=== PATIENT | female | born 1945 | race Two or more races ===

== ENCOUNTER 2017-08-30 20:55 | Inpatient (IN) | payer OTHER, MEDICARE ==
--- NOTE | 2017-08-30 23:04 | C.PDOC ---
Time Seen by Provider: 08/30/17 23:03 Chief Complaint (Nursing): Flu-like Symptoms Past Medical History Vital Signs: Last Vital Signs Temp 98.6 F 08/30/17 21:38 Pulse 77 08/30/17 21:38 Resp 22 08/30/17 21:38 BP 125/59 L 08/30/17 21:38 Pulse Ox 95 08/30/17 21:38 - Medical History PMH: Anxiety, Asthma, CHF, COPD, Diabetes, Emphysema Denies: Chronic Kidney Disease - [facility] Procedures CONTRAST AORTOGRAM (12/16/13) CORONAR ARTERIOGR-2 CATH (12/16/13) LEFT HEART CARDIAC CATH (12/16/13) LT HEART ANGIOCARDIOGRAM (12/16/13) PACKED CELL TRANSFUSION (12/16/13) - Social History Hx Tobacco Use: No (quit 8 years ago) Hx Alcohol Use: Yes (Quit 10 yrs ago) Hx Substance Use: No - Immunization History Hx Tetanus Toxoid Vaccination: No Hx Influenza Vaccination: Yes Hx Pneumococcal Vaccination: Yes ED Course And Treatment O2 Sat by Pulse Oximetry: 95 Disposition Counseled Patient/Family Regarding: Studies Performed, Diagnosis - Disposition Disposition Time: 23:04
--- NOTE | 2017-08-30 23:15 | C.PDOC ---
History Of Present Illness Patient presents with shortness of breath, dyspnea on exertion, non productive cough. failed 2 courses of antibiotics(zithromax and levaquin). No cp or palpitations. Tolerating po. Time Seen by Provider: 08/30/17 23:03 Chief Complaint (Nursing): Flu-like Symptoms History Per: Patient History/Exam Limitations: no limitations Onset/Duration Of Symptoms: Days Current Symptoms Are (Timing): Still Present Initiating Event: Upper Respiratory Illness Quality: Dull Exacerbating Factor(s): Exertion, Coughing Current Respiratory Medications: See Home Med List Severity: Moderate Pain Scale Rating Of: 5 Associated Symptoms: Productive Cough. denies: Fever, Chills, Chest Pain Reports Recently: Treated By A Physician, Hospitalized Recent travel outside of the [place]: No Additional History Per: Family Past Medical History Reviewed: Historical Data, Nursing Documentation, Vital Signs Vital Signs: Last Vital Signs Temp 98.6 F 08/30/17 21:38 Pulse 77 08/30/17 21:38 Resp 22 08/30/17 21:38 BP 125/59 L 08/30/17 21:38 Pulse Ox 95 08/30/17 23:57 - Medical History PMH: Anxiety, Asthma, CHF, COPD, Diabetes, Emphysema Denies: Chronic Kidney Disease - [facility] Procedures CONTRAST AORTOGRAM (12/16/13) CORONAR ARTERIOGR-2 CATH (12/16/13) LEFT HEART CARDIAC CATH (12/16/13) LT HEART ANGIOCARDIOGRAM (12/16/13) PACKED CELL TRANSFUSION (12/16/13) Family History: States: No Known Family Hx - Social History Hx Tobacco Use: No (quit 8 years ago) Hx Alcohol Use: Yes (Quit 10 yrs ago) Hx Substance Use: No - Immunization History Hx Tetanus Toxoid Vaccination: No Hx Influenza Vaccination: Yes Hx Pneumococcal Vaccination: Yes Review Of Systems Constitutional: Negative for: Fever, Chills Eyes: Negative for: Redness ENT: Negative for: Throat Pain Cardiovascular: Negative for: Chest Pain Respiratory: Positive for: Cough, Shortness of Breath, SOB with Excertion Gastrointestinal: Negative for: Nausea, Vomiting, Abdominal Pain Genitourinary: Negative for: Dysuria Musculoskeletal: Negative for: Back Pain Skin: Negative for: Rash Neurological: Negative for: Weakness Psych: Negative for: Anxiety Physical Exam - Physical Exam Appears: Non-toxic, No Acute Distress Skin: Warm, Dry Head: Normacephalic Eye(s): bilateral: Normal Inspection Oral Mucosa: Moist Teeth: Dentures Throat: No Erythema Neck: Supple Chest: Symmetrical Cardiovascular: Rhythm Regular Respiratory: Decreased Breath Sounds, No Rales, Rhonchi, Wheezing (few) Gastrointestinal/Abdominal: Soft, No Tenderness, Distention (mild), No Guarding Back: No CVA Tenderness Extremity: Normal ROM, No Pedal Edema Extremity: Bilateral: Atraumatic, Normal Color And Temperature Pulses: Left Dorsalis Pedis: Normal, Right Dorsalis Pedis: Normal Neurological/Psych: Oriented x3, Normal Speech, Normal Cognition Gait: Steady ED Course And Treatment - Laboratory Results Result Diagrams: 08/30/17 23:18 08/30/17 23:18 ECG: Interpreted By Me, Viewed By Me ECG Rhythm: Sinus Tachycardia (110), Nonspecific Changes O2 Sat by Pulse Oximetry: 95 Pulse Ox Interpretation: Normal - Radiology CXR: Interpreted by Me, Viewed By Me CXR Interpretation: Yes: Infiltrates (rll), COPD, Cardiomegaly, Other (? small left effusion). No: Fracture Disposition Discussed With Dr.: Holly Lugo Comment: accepted the pt on her service and took over the care at 11:55 PM Doctor Will See Patient In The: Hospital Counseled Patient/Family Regarding: Studies Performed, Diagnosis - Disposition Disposition: HOSPITALIZED Disposition Time: 23:11 Condition: GUARDED Forms: [facility] (Italian) - POA Present On Arrival: Poor Glycemic Control - Clinical Impression Clinical Impression: COPD exacerbation, Pneumonia, Severe anemia, Hypokalemia Decision To Admit - Pt Status Changed To: Hospital Disposition Of: Inpatient - Admit Certification Admit to Inpatient:: After my assessment, the patient will require hospitalization for at least two midnights. This is because of the severity of symptoms shown, intensity of services needed, and/or the medical risk in this patient being treated as an outpatient. - InPatient: Physician Admission Certification: I certify that this patient requires 2 or more midnights of care for the following reason:: After my assessment, the patient will require hospitalization for at least two midnights. This is because of the severity of symptoms shown, intensity of services needed, and/or the medical risk in this patient being treated as an outpatient. - . Bed Request Type: Regular Admitting Physician: Holly Lugo Patient Diagnosis: COPD exacerbation, Pneumonia, Severe anemia
[2017-08-30 23:21] LABS: BASO % 0.6 % (0.0-2.0); EOS # 0.2 K/uL (0.0-0.7); EOS % 3.1 % (0.0-4.0); LYMPH # 0.9 K/uL (1.0-4.3); LYMPH % 11.1 % (20.0-40.0); MEAN CORPUSCULAR HEMOGLOBIN 21.1 pg (27.0-31.0); MEAN CORPUSCULAR HGB CONC 30.7 g/dL (33.0-37.0); MEAN PLATELET VOLUME 7.2 fL (7.2-11.7); MONO # 1.1 K/uL (0.0-0.8); MONO % 13.3 % (0.0-10.0); NEUT # 5.8 K/uL (1.8-7.0); NEUT % 71.9 % (50.0-75.0); NRBC % 0.2 % (0.0-2.0); RBC 3.33 Mil/uL (3.80-5.20); WHITE BLOOD COUNT 8.1 K/uL (4.8-10.8)
[2017-08-30 23:24] LABS: MEAN CELL VOLUME 68.6 fL (81.0-99.0)
[2017-08-30 23:30] LABS: INR 1.1; PROTHROMBIN TIME 12.6 SECONDS (9.7-12.2)
[2017-08-30] MEDS: Albuterol-Ipratrop 3 mg / 0.5 (3 ml) UD IH SCH ×2 (23:32→23:48)
[2017-08-30 23:33] LABS: ALB/GLOB RATIO 1.1 (1.0-2.1); ALBUMIN 3.8 g/dL (3.5-5.0); ALT/SGPT 26 U/L (9-52); AST/SGOT 31 U/L (14-36); BLOOD UREA NITROGEN 14 mg/dL (7-17); CALCIUM 8.8 mg/dl (8.6-10.4); GFR AFRICAN-AMERICAN > 60; GFR NON-AFRICAN AMERICAN > 60; MAGNESIUM 1.5 mg/dL (1.6-2.3)
[2017-08-30] MEDS ORDERED: Albuterol-Ipratrop 3 mg / 0.5 (3 ml) UD ONE (23:36)
[2017-08-30 23:44] LABS: B-TYPE NATRIURETIC PEPTIDE 135 pg/mL (0-900)
[2017-08-30] MEDS ORDERED: Vancomycin 1 GM 1 GM/250 ML BAG IVPB SCH (23:45)
[2017-08-30] MEDS ORDERED: Potassium Chloride 10 mEq ER Tab PO STA (23:50)
[2017-08-30] MEDS ORDERED: Piperacillin/Tazobact 3.375 gm 100 ML IVPB STA (23:51)
[2017-08-30 23:53] LABS: ABG ALLEN TEST POS; ARTERIAL BLOOD GAS HCO3 32.6 mmol/L (21-28); ARTERIAL BLOOD GAS O2 SAT 97.7 % (95-98); ARTERIAL BLOOD GAS PCO2 44 mm/Hg (35-45); ARTERIAL BLOOD GAS PO2 71 mm/Hg (80-100); ARTERIAL BLOOD GAS TCO2 35.7 mmol/L (22-28)
[2017-08-31] MEDS ORDERED: Potassium Chloride 10 mEq ER Tab PO STA (00:33)
[2017-08-31] MEDS ORDERED: Vancomycin 1 GM 1 GM/250 ML BAG IVPB STA (00:44)
[2017-08-31] MEDS ORDERED: Potassium Chloride 10 mEq ER Tab PO ONE (00:50)
[2017-08-31] MEDS ORDERED: Piperacillin/Tazobact 3.375 gm 100 ML IVPB ONE ×3 (00:50→15:12)
[2017-08-31] MEDS: Piperacillin/Tazobact 3.375 GM in Sodium Chloride 100 ML IVPB SCH ×2 (01:04→10:41)
[2017-08-31 01:11] LABS: FERRITIN 9.7 ng/mL
[2017-08-31] MEDS: MethylPREDNISolone 40 mg Vial IVP SCH ×4 (01:20→22:25)
[2017-08-31] MEDS ORDERED: MethylPREDNISolone 40 mg Vial ONE ×2 (01:22→06:02)
[2017-08-31 02:46] LABS: CK-MB 0.57 ng/mL (0.0-3.38)
[2017-08-31] MEDS ORDERED: Albuterol-Ipratrop 3 mg / 0.5 (3 ml) UD ONE ×4 (04:50→15:44)
[2017-08-31] MEDS: Albuterol-Ipratrop 3 mg / 0.5 (3 ml) UD INH SCH ×5 (04:51→20:21)
[2017-08-31 06:24] LABS: SQUAMOUS EPITHIAL < 1 /hpf (0-5); URINE BILIRUBIN NEGATIVE (NEGATIVE); URINE BLOOD NEGATIVE (NEGATIVE); URINE CLARITY Clear (Clear); URINE COLOR Yellow (YELLOW); URINE GLUCOSE (UA) NORMAL (Normal); URINE LEUKOCYTE ESTERASE NEG Leu/uL (Negative); URINE NITRATE NEGATIVE (NEGATIVE); URINE PROTEIN NEGATIVE (NEGATIVE); URINE UROBILINOGEN NORMAL mg/dL (0.2-1.0)
[2017-08-31 07:54] LABS: ALB/GLOB RATIO 1.2 (1.0-2.1); ALBUMIN 3.4 g/dL (3.5-5.0); ALT/SGPT 17 U/L (9-52); AST/SGOT 21 U/L (14-36); BLOOD UREA NITROGEN 15 mg/dL (7-17); CALCIUM 8.7 mg/dl (8.6-10.4); GFR AFRICAN-AMERICAN > 60; GFR NON-AFRICAN AMERICAN > 60
[2017-08-31 08:06] LABS: CK-MB 0.94 ng/mL (0.0-3.38)
[2017-08-31] MEDS: Albuterol-Ipratrop 3 mg / 0.5 (3 ml) UD INH PRN ×2 (08:33→13:39)
--- NOTE | 2017-08-31 10:21 | RAD ---
PROCEDURE: CHEST RADIOGRAPH, 1 VIEW HISTORY: SOB COMPARISON: CT chest without contrast from 12/23/2013 FINDINGS: LUNGS: The lungs are well inflated. There is consolidation in the right lower lobe. There is also mild pulmonary venous congestion. PLEURA: No pneumothorax or pleural fluid seen. CARDIOVASCULAR: The heart remains enlarged. Status post CABG. OSSEOUS STRUCTURES: Within normal limits for the patient's age with an enchondroma in the right humeral neck. VISUALIZED UPPER ABDOMEN: Normal. OTHER FINDINGS: None. IMPRESSION: Right lower lobe pneumonia. Follow-up to resolution is advised.
--- NOTE | 2017-08-31 11:06 | CP.PCM.HP ---
History of Present Illness - History of Present Illness History of Present Illness: pt was sent to hospital for cough wheesing sob hyoxeamia and pumonia has sapid ht rate p\iregular Present on Admission - Present on Admission Any Indicators Present on Admission: No Review of Systems - Review of Systems Systems not reviewed;Unavailable: Acuity of Condition, Respiratory Distress - Constitutional Constitutional: Fatigue - EENT Eyes: As Per HPI Nose/Mouth/Throat: As Per HPI - Cardiovascular Cardiovascular: Irregular Heart Rhythm, Rapid Heart Rate - Respiratory Respiratory: Cough, Dyspnea, Wheezing, Chest Congestion - Reproductive: Female Reproductive:Female: As Per HPI - Menstruation Menstruation: As Per HPI - Musculoskeletal Musculoskeletal: Arthralgias - Integumentary Integumentary: As Per HPI - Neurological Neurological: As Per HPI - Psychiatric Psychiatric: As Per HPI - Endocrine Endocrine: As Per HPI - Hematologic/Lymphatic Additional comments: severe aneamia Past Patient History - Past Medical History & Family History Past Medical History?: Yes - Past Social History Smoking Status: Never Smoked - CARDIAC Hx Congestive Heart Failure: Yes - PULMONARY Hx Asthma: Yes Hx Chronic Obstructive Pulmonary Disease (COPD): Yes Hx Emphysema: Yes - NEUROLOGICAL Hx Neurological Disorder: No - HEENT Hx Cataracts: Yes - RENAL Hx Chronic Kidney Disease: No - ENDOCRINE/METABOLIC Hx Endocrine Disorders: No - HEMATOLOGICAL/ONCOLOGICAL Hx Blood Disorders: No - INTEGUMENTARY Hx Dermatological Problems: No - MUSCULOSKELETAL/RHEUMATOLOGICAL Hx Falls: No - GASTROINTESTINAL Hx Gastrointestinal Disorders: No - GENITOURINARY/GYNECOLOGICAL Hx Genitourinary Disorders: No - PSYCHIATRIC Hx Anxiety: Yes Hx Substance Use: No - SURGICAL HISTORY Hx Surgeries: Yes Hx Cataract Extraction: Yes Other/Comment: R mastectomy 8 yrs ago L mastectomy 6 yrs ago - ANESTHESIA Hx Anesthesia: Yes Hx Anesthesia Reactions: No Meds Allergies/Adverse Reactions: Allergies Allergy/AdvReac Type Severity Reaction Status Date / Time adhesive tape Allergy Verified 08/30/17 21:45 latex Allergy Verified 08/30/17 21:45 Physical Exam - Constitutional Appears: Non-toxic, Cachectic - Head Exam Head Exam: ATRAUMATIC - Eye Exam Eye Exam: Normal appearance Pupil Exam: NORMAL ACCOMODATION - ENT Exam ENT Exam: Mucous Membranes Moist - Neck Exam Neck exam: Positive for: Normal Inspection - Respiratory Exam Respiratory Exam: Decreased Breath Sounds, Rales, Rhonchi, Wheezes, Respiratory Distress - Cardiovascular Exam Cardiovascular Exam: Tachycardia - GI/Abdominal Exam GI & Abdominal Exam: Normal Bowel Sounds - Rectal Exam Rectal Exam: NORMAL INSPECTION - Exam Exam: NORMAL INSPECTION External exam: NORMAL EXTERNAL EXAM Results - Vital Signs Recent Vital Signs: Last Vital Signs Temp 97.8 F 08/31/17 10:33 Pulse 124 H 08/31/17 10:33 Resp 22 08/31/17 10:33 BP 116/58 L 08/31/17 10:33 Pulse Ox 99 08/31/17 10:33 - Labs Result Diagrams: 08/30/17 23:18 08/31/17 07:53 Labs: Laboratory Results - last 24 hr 08/30/17 08/30/17 08/30/17 23:18 23:18 23:18 WBC 8.1 RBC 3.33 L Hgb 7.0 L D Hct 22.8 L MCV 68.6 L D MCH 21.1 L MCHC 30.7 L RDW 20.0 H Plt Count 431 H D MPV 7.2 Neut % (Auto) 71.9 Lymph % (Auto) 11.1 L Nash % (Auto) 13.3 H Eos % (Auto) 3.1 Baso % (Auto) 0.6 Neut # (Auto) 5.8 Lymph # (Auto) 0.9 L Nash # (Auto) 1.1 H Eos # (Auto) 0.2 Baso # (Auto) 0.0 PT 12.6 H INR 1.1 APTT 28 Puncture Site pCO2 pO2 HCO3 ABG pH ABG Total CO2 ABG O2 Saturation ABG Base Excess Bill Test ABG Potassium Glucose Lactate Liter Flow Sodium 135 Potassium 2.9 L Chloride 91 L Carbon Dioxide 31 H Anion Gap 17 BUN 14 Creatinine 0.9 Est GFR ( Amer) > 60 Est GFR (Non-Af Amer) > 60 Random Glucose 153 H Calcium 8.8 Magnesium 1.5 L Ferritin Total Bilirubin 0.4 AST 31 ALT 26 Alkaline Phosphatase 56 Total Creatine Kinase CK-MB (Mass) Troponin I 0.0120 NT-Pro-B Natriuret Pep 135 Total Protein 7.2 Albumin 3.8 Globulin 3.4 Albumin/Globulin Ratio 1.1 TSH 3rd Generation Arterial Blood Potassium Urine Color Urine Clarity Urine pH Ur Specific [place] Urine Protein Urine Glucose (UA) Urine Ketones Urine Blood Urine Nitrate Urine Bilirubin Urine Urobilinogen Ur Leukocyte Esterase Urine WBC (Auto) Urine RBC (Auto) Ur Squamous Epith Cells Influenza Typ A,B (EIA) Blood Type Antibody Screen Antibody Identification Antigen Identification 08/30/17 08/31/17 08/31/17 23:32 00:22 00:32 WBC RBC Hgb Hct MCV MCH MCHC RDW Plt Count MPV Neut % (Auto) Lymph % (Auto) Nash % (Auto) Eos % (Auto) Baso % (Auto) Neut # (Auto) Lymph # (Auto) Nash # (Auto) Eos # (Auto) Baso # (Auto) PT INR APTT Puncture Site Rr pCO2 44 pO2 71 L HCO3 32.6 H ABG pH 7.50 H ABG Total CO2 35.7 H ABG O2 Saturation 97.7 ABG Base Excess 9.9 H Bill Test Pos ABG Potassium 2.6 L Glucose 154 H Lactate 2.0 Liter Flow 6.0 Sodium 138.0 Potassium Chloride 101.0 Carbon Dioxide Anion Gap BUN Creatinine Est GFR ( Amer) Est GFR (Non-Af Amer) Random Glucose Calcium Magnesium Ferritin 9.7 Total Bilirubin AST ALT Alkaline Phosphatase Total Creatine Kinase CK-MB (Mass) Troponin I NT-Pro-B Natriuret Pep Total Protein Albumin Globulin Albumin/Globulin Ratio TSH 3rd Generation 2.52 Arterial Blood Potassium 2.6 L Urine Color Urine Clarity Urine pH Ur Specific [place] Urine Protein Urine Glucose (UA) Urine Ketones Urine Blood Urine Nitrate Urine Bilirubin Urine Urobilinogen Ur Leukocyte Esterase Urine WBC (Auto) Urine RBC (Auto) Ur Squamous Epith Cells Influenza Typ A,B (EIA) Blood Type O POSITIVE Antibody Screen Positive Antibody Identification Anti E Antigen Identification E Antigen - NEGATIVE 08/31/17 08/31/17 08/31/17 01:39 02:27 06:15 WBC RBC Hgb Hct MCV MCH MCHC RDW Plt Count MPV Neut % (Auto) Lymph % (Auto) Nash % (Auto) Eos % (Auto) Baso % (Auto) Neut # (Auto) Lymph # (Auto) Nash # (Auto) Eos # (Auto) Baso # (Auto) PT INR APTT Puncture Site pCO2 pO2 HCO3 ABG pH ABG Total CO2 ABG O2 Saturation ABG Base Excess Bill Test ABG Potassium Glucose Lactate Liter Flow Sodium Potassium Chloride Carbon Dioxide Anion Gap BUN Creatinine Est GFR ( Amer) Est GFR (Non-Af Amer) Random Glucose Calcium Magnesium Ferritin Total Bilirubin AST ALT Alkaline Phosphatase Total Creatine Kinase 40 CK-MB (Mass) 0.57 Troponin I < 0.0120 NT-Pro-B Natriuret Pep Total Protein Albumin Globulin Albumin/Globulin Ratio TSH 3rd Generation Arterial Blood Potassium Urine Color Yellow Urine Clarity Clear Urine pH 5.0 Ur Specific [place] 1.014 Urine Protein Negative Urine Glucose (UA) Normal Urine Ketones Negative Urine Blood Negative Urine Nitrate Negative Urine Bilirubin Negative Urine Urobilinogen Normal Ur Leukocyte Esterase Neg Urine WBC (Auto) 1 Urine RBC (Auto) 1 Ur Squamous Epith Cells < 1 Influenza Typ A,B (EIA) Negative for flu a/b Blood Type Antibody Screen Antibody Identification Antigen Identification 08/31/17 07:53 WBC RBC Hgb Hct MCV MCH MCHC RDW Plt Count MPV Neut % (Auto) Lymph % (Auto) Nash % (Auto) Eos % (Auto) Baso % (Auto) Neut # (Auto) Lymph # (Auto) Nash # (Auto) Eos # (Auto) Baso # (Auto) PT INR APTT Puncture Site pCO2 pO2 HCO3 ABG pH ABG Total CO2 ABG O2 Saturation ABG Base Excess Bill Test ABG Potassium Glucose Lactate Liter Flow Sodium 136 Potassium 3.3 L Chloride 96 L Carbon Dioxide 27 Anion Gap 16 BUN 15 Creatinine 0.7 Est GFR ( Amer) > 60 Est GFR (Non-Af Amer) > 60 Random Glucose 231 H Calcium 8.7 Magnesium Ferritin Total Bilirubin 0.2 AST 21 ALT 17 Alkaline Phosphatase 60 Total Creatine Kinase 41 CK-MB (Mass) 0.94 Troponin I < 0.0120 NT-Pro-B Natriuret Pep Total Protein 6.4 Albumin 3.4 L Globulin 3.0 Albumin/Globulin Ratio 1.2 TSH 3rd Generation Arterial Blood Potassium Urine Color Urine Clarity Urine pH Ur Specific [place] Urine Protein Urine Glucose (UA) Urine Ketones Urine Blood Urine Nitrate Urine Bilirubin Urine Urobilinogen Ur Leukocyte Esterase Urine WBC (Auto) Urine RBC (Auto) Ur Squamous Epith Cells Influenza Typ A,B (EIA) Blood Type Antibody Screen Antibody Identification Antigen Identification Assessment & Plan - Assessment and Plan (Free Text) Assessment: ac pnumonia hypoxaemia ac ex copd severe aneamia dm Plan: as per orders - Date & Time Date: 08/31/17 Time: 11:09
[2017-08-31] MEDS ORDERED: Potassium Chloride 20 mEq ER Tab PO ONE (11:31)
[2017-08-31] MEDS: Potassium Chloride 20 mEq ER Tab PO SCH (11:32)
[2017-08-31 14:30] LABS: BASO % 0.2 % (0.0-2.0); LYMPH # 0.4 K/uL (1.0-4.3); MEAN CORPUSCULAR HEMOGLOBIN 23.1 pg (27.0-31.0); MEAN CORPUSCULAR HGB CONC 31.8 g/dL (33.0-37.0); MEAN PLATELET VOLUME 7.1 fL (7.2-11.7); MONO # 0.2 K/uL (0.0-0.8); MONO % 4.4 % (0.0-10.0); NEUT # 4.2 K/uL (1.8-7.0); NEUT % 87.4 % (50.0-75.0); NRBC % 0.4 % (0.0-2.0); PLATELET COUNT 489 K/uL (130-400); RBC 4.47 Mil/uL (3.80-5.20); RED CELL DISTRIBUTION WIDTH 21.9 % (11.5-14.5); WHITE BLOOD COUNT 4.8 K/uL (4.8-10.8)
[2017-08-31 14:34] LABS: HEMOGLOBIN 10.3 g/dL (11.0-16.0); MEAN CELL VOLUME 72.6 fL (81.0-99.0)
[2017-08-31 15:33] LABS: LYMPHOCYTE 4 % (20-40); MONOCYTE 3 % (0-10); NEUTROPHIL 93 % (50-75); TOTAL CELLS COUNTED 100
[2017-08-31 15:34] LABS: ANISOCYTOSIS SLIGHT; PLATELET ESTIMATE SLIGHTLY INCREASED (NORMAL)
[2017-08-31 15:35] LABS: HYPOCHROMIC SLIGHT; MICROCYTOSIS SLIGHT; OVALOCYTES SLIGHT; POLYCHROMIC SLIGHT
[2017-08-31 15:36] LABS: TARGET CELLS SLIGHT; TEARDROP CELLS SLIGHT
[2017-08-31] MEDS: Piperacill/Tazo 3.375gm in Dex 3.375 GM/50 ML BAG IVPB SCH (16:50)
[2017-08-31] MEDS ORDERED: Albuterol-Ipratrop 3 mg / 0.5 (3 ml) UD INH STA ×2 (20:21→22:20)
[2017-08-31 20:23] LABS: ABG ALLEN TEST YES; ARTERIAL BLOOD GAS HCO3 24.9 mmol/L (21-28); ARTERIAL BLOOD GAS HEMOGLOBIN 10.5 g/dL (11.7-17.4); ARTERIAL BLOOD GAS O2 SAT 98.4 % (95-98); ARTERIAL BLOOD GAS PCO2 50 mm/Hg (35-45); ARTERIAL BLOOD GAS PH 7.33 (7.35-7.45); ARTERIAL BLOOD GAS PO2 88 mm/Hg (80-100); ARTERIAL BLOOD GAS TCO2 27.9 mmol/L (22-28)
--- NOTE | 2017-08-31 21:05 | PCM.RRT ---
ADMINISTRATIVE PROFESSIONAL Nurses Assessment - Situation Date: 08/31/17 Time ADMINISTRATIVE PROFESSIONAL was called: 20:09 ADMINISTRATIVE PROFESSIONAL Location:: 5S Med/Surg (721I) ADMINISTRATIVE PROFESSIONAL Reason for Call: Tachycardia, O2 Saturation below 90% Plan - Assessment of Findings&Treatment Plan ADMINISTRATIVE PROFESSIONAL was called at 20:09 for oxygen saturation 80-85% on 2L via n/c and tachycardia @150bpm. Pt was admitted today to the service of Dr. Lugo for RLL PNA, Dr. Mak was consulted for pulmonology. Both of the doctors were contacted and alerted. The following orders were placed for the patient EKG ABG CXR Lasix 40mg IVP x1 BIPAP 10/5 @50% Duonebs x1 The ekg showed sinus tachycardia, no acute changes. CXR was pertinent for increased interstitial markings. ABG was acidotic and hypercapnic. This correlated with physical finding of decreased breath sounds, costal retractions , labored breathing and prolonged expiratory phase with wheezing. Lasix was ordered. Pt was placed on BIPAP and given a duoneb treatment. Pt's saturation increased to 88-90% on BIPAP. She was persistently tachycardic 150bpm. Conversation occurred with ICU attending Dr. Scherer who asked that we monitor the patient for resolution prior to considering transfer to ICU. Reevaluate patient in 30min with consideration for ICU transfer if not improved. Patient asked for her son Orlin to be notified at the following number: . I discussed the situation with her son. Son confirmed that the patient is full code as of right now but will discuss this with her when he visits her tomorrow.
[2017-08-31] MEDS ORDERED: Nitroglycerin 2% Ointment Foilpak UD TOP ONE ×2 (22:02→22:05)
[2017-08-31 22:31] LABS: BASO # 0.1 K/uL (0.0-0.2); BASO % 0.4 % (0.0-2.0); HEMOGLOBIN 10.9 g/dL (11.0-16.0); LYMPH # 0.9 K/uL (1.0-4.3); LYMPH % 6.2 % (20.0-40.0); MEAN CORPUSCULAR HEMOGLOBIN 22.4 pg (27.0-31.0); MEAN CORPUSCULAR HGB CONC 29.8 g/dL (33.0-37.0); MEAN PLATELET VOLUME 7.6 fL (7.2-11.7); MONO # 1.1 K/uL (0.0-0.8); MONO % 7.7 % (0.0-10.0); NEUT # 12.4 K/uL (1.8-7.0); NEUT % 85.7 % (50.0-75.0); NRBC % 0.4 % (0.0-2.0); PLATELET COUNT 600 K/uL (130-400); RBC 4.85 Mil/uL (3.80-5.20); RED CELL DISTRIBUTION WIDTH 21.6 % (11.5-14.5)
[2017-08-31 22:35] LABS: WHITE BLOOD COUNT 14.5 K/uL (4.8-10.8)
[2017-08-31 22:38] LABS: ALB/GLOB RATIO 1.1 (1.0-2.1); ALT/SGPT 30 U/L (9-52); AST/SGOT 52 U/L (14-36); BLOOD UREA NITROGEN 19 mg/dL (7-17); CALCIUM 8.9 mg/dl (8.6-10.4); GFR AFRICAN-AMERICAN > 60; GFR NON-AFRICAN AMERICAN 54
[2017-08-31 22:44] LABS: ABG ALLEN TEST POS; ARTERIAL BLOOD GAS HCO3 24.1 mmol/L (21-28); ARTERIAL BLOOD GAS O2 SAT 99.4 % (95-98); ARTERIAL BLOOD GAS PCO2 67 mm/Hg (35-45); ARTERIAL BLOOD GAS PH 7.23 (7.35-7.45); ARTERIAL BLOOD GAS PO2 149 mm/Hg (80-100); ARTERIAL BLOOD GAS TCO2 30.2 mmol/L (22-28)
[2017-08-31] MEDS ORDERED: Nitroglycerin 50mg in D5W 50 MG/250 ML BOTTLE IV SCH (22:45)
[2017-08-31 22:53] LABS: B-TYPE NATRIURETIC PEPTIDE 4220 pg/mL (0-900); CK-MB 7.56 ng/mL (0.0-3.38)
[2017-08-31 22:57] LABS: ANISOCYTOSIS SLIGHT; BANDS 1 % (0-2); LYMPHOCYTE 6 % (20-40); MONOCYTE 5 % (0-10); NEUTROPHIL 88 % (50-75); NUCLEATED RED BLOOD CELL 1 % (0-0); PLATELET ESTIMATE SLIGHTLY INCREASED (NORMAL); TOTAL CELLS COUNTED 100
[2017-08-31 22:58] LABS: HYPOCHROMIC MODERATE; OVALOCYTES SLIGHT; POLYCHROMIC SLIGHT
[2017-08-31 22:59] LABS: MICROCYTOSIS MODERATE
[2017-08-31] MEDS: Propofol 10 mg/ml 1,000 MG/100 ML VIAL IV PRN (23:45)
[2017-08-31 23:52] VITALS: BMI 24.5
--- NOTE | 2017-09-01 00:11 | CP.PCM.PN ---
Subjective - Date & Time of Evaluation Date of Evaluation: 09/01/17 Time of Evaluation: 00:08 - Subjective Subjective: pt become severe respiratory distress rept ABG showing acidotic changes and co2 retension with worsening distress. spoke to pt daugher and explained her. agree with aggressive treatment Decided to intubate and pt intubated with 7.5size tube placed at 22cm, with glidescope help. spo2 maintained 97% placed on vent cxr ordered. Objective - Vital Signs/Intake and Output Vital Signs (last 24 hours): Temp Pulse Resp BP Pulse Ox 98.2 F 160 H 32 H 132/81 96 08/31/17 18:00 08/31/17 23:00 08/31/17 23:00 08/31/17 23:00 08/31/17 23:00 Intake and Output: 08/31/17 09/01/17 18:59 06:59 Intake Total 20 Balance 20 - Medications Medications: Current Medications Albuterol/Ipratropium (Duoneb 3 Mg/0.5 Mg (3 Ml) Ud) 3 ml INH RQ4 [facility] Last Admin: 08/31/17 20:21 Dose: 3 ml Alprazolam (Xanax) 0.5 mg PO HS [facility] Last Admin: 08/31/17 22:00 Dose: Not Given Alprazolam (Xanax) 0.25 mg PO DAILY [facility] Stop: 09/07/17 11:31 Last Admin: 08/31/17 11:32 Dose: 0.25 mg Gabapentin (Neurontin) 300 mg PO HS [facility] Last Admin: 08/31/17 22:00 Dose: Not Given Piperacillin Sod/Tazobactam Sod (Zosyn 3.375 Gm Iv Premix) 3.375 gm in 50 mls @ 100 mls/hr IVPB Q8H [facility] Last Admin: 08/31/17 16:50 Dose: 100 mls/hr Diltiazem HCl 125 mg/ Dextrose 125 mls @ 5 mls/hr IV .Q24H [facility]; 5 MG/HR PRN Reason: Protocol Last Titration: 08/31/17 23:30 Dose: 0 mg/hr, 0 mls/hr Nitroglycerin/Dextrose (Nitroglycerin 50 Mg/250 Ml D5w) 50 mg in 250 mls @ 1.5 mls/hr IV .Q24H [facility]; 5 MCG/MIN PRN Reason: Protocol Last Titration: 08/31/17 23:30 Dose: 0 mcg/min, 0 mls/hr Propofol (Diprivan) 1,000 mg in 100 mls @ 1.919 mls/hr IV .Q24H PRN; Protocol; 5 MCG/KG/MIN PRN Reason: TITRATE PER MD ORDER Methylprednisolone (Solu-Medrol) 40 mg IVP Q8 [facility] Last Admin: 08/31/17 22:25 Dose: 40 mg Montelukast Sodium (Singulair) 10 mg PO HS [facility] Last Admin: 08/31/17 22:00 Dose: Not Given Potassium Chloride (K-Dur 20 Meq Er Tab) 20 meq PO DAILY [facility] Last Admin: 08/31/17 11:32 Dose: 20 meq Rosuvastatin Calcium (Crestor) 10 mg PO HS [facility] Last Admin: 08/31/17 22:00 Dose: Not Given - Labs Labs: 08/31/17 22:03 08/31/17 22:03 PT 12.6 SECONDS (9.7-12.2) H 08/30/17 23:18 INR 1.1 08/30/17 23:18 APTT 28 SECONDS (21-34) 08/30/17 23:18
--- NOTE | 2017-09-01 00:12 | CP.PCM.PN ---
Subjective - Date & Time of Evaluation Date of Evaluation: 09/01/17 Time of Evaluation: 00:11 - Subjective Subjective: consent from pt daughter for venous access Venous access with TLC inserted to rt side IJ under sono guidance, no complications CXR orderd. Objective - Vital Signs/Intake and Output Vital Signs (last 24 hours): Temp Pulse Resp BP Pulse Ox 98.2 F 160 H 32 H 132/81 96 08/31/17 18:00 08/31/17 23:00 08/31/17 23:00 08/31/17 23:00 08/31/17 23:00 Intake and Output: 08/31/17 09/01/17 18:59 06:59 Intake Total 20 Balance 20 - Medications Medications: Current Medications Albuterol/Ipratropium (Duoneb 3 Mg/0.5 Mg (3 Ml) Ud) 3 ml INH RQ4 [facility] Last Admin: 08/31/17 20:21 Dose: 3 ml Alprazolam (Xanax) 0.5 mg PO HS [facility] Last Admin: 08/31/17 22:00 Dose: Not Given Alprazolam (Xanax) 0.25 mg PO DAILY [facility] Stop: 09/07/17 11:31 Last Admin: 08/31/17 11:32 Dose: 0.25 mg Gabapentin (Neurontin) 300 mg PO HS [facility] Last Admin: 08/31/17 22:00 Dose: Not Given Piperacillin Sod/Tazobactam Sod (Zosyn 3.375 Gm Iv Premix) 3.375 gm in 50 mls @ 100 mls/hr IVPB Q8H [facility] Last Admin: 08/31/17 16:50 Dose: 100 mls/hr Diltiazem HCl 125 mg/ Dextrose 125 mls @ 5 mls/hr IV .Q24H [facility]; 5 MG/HR PRN Reason: Protocol Last Titration: 08/31/17 23:30 Dose: 0 mg/hr, 0 mls/hr Nitroglycerin/Dextrose (Nitroglycerin 50 Mg/250 Ml D5w) 50 mg in 250 mls @ 1.5 mls/hr IV .Q24H [facility]; 5 MCG/MIN PRN Reason: Protocol Last Titration: 08/31/17 23:30 Dose: 0 mcg/min, 0 mls/hr Propofol (Diprivan) 1,000 mg in 100 mls @ 1.919 mls/hr IV .Q24H PRN; Protocol; 5 MCG/KG/MIN PRN Reason: TITRATE PER MD ORDER Last Admin: 08/31/17 23:45 Dose: 5 mcg/kg/min, 1.919 mls/hr Methylprednisolone (Solu-Medrol) 40 mg IVP Q8 [facility] Last Admin: 08/31/17 22:25 Dose: 40 mg Montelukast Sodium (Singulair) 10 mg PO HS [facility] Last Admin: 08/31/17 22:00 Dose: Not Given Potassium Chloride (K-Dur 20 Meq Er Tab) 20 meq PO DAILY [facility] Last Admin: 08/31/17 11:32 Dose: 20 meq Rosuvastatin Calcium (Crestor) 10 mg PO HS [facility] Last Admin: 08/31/17 22:00 Dose: Not Given - Labs Labs: 08/31/17 22:03 08/31/17 22:03 PT 12.6 SECONDS (9.7-12.2) H 08/30/17 23:18 INR 1.1 08/30/17 23:18 APTT 28 SECONDS (21-34) 08/30/17 23:18
--- NOTE | 2017-09-01 00:13 | CP.PCM.CON ---
History of Present Illness - History of Present Illness History of Present Illness: Chief complaint: Respiratory failure HPI: 72-year-old female with a history of chronic bronchitis, COPD, history of breast cancer, bilateral mastectomy admitted to the hospital 24 hours prior with increasing shortness of breath. Patient initially treated for COPD exacerbation. Patient was given antibiotic Solu-Medrol and also for anemia patient received 2 units of blood transfusion. Following that the patient was transferred to floor, from the emergency room, and she started having increasing shortness of breath, tachycardia and unable to complete a sentence. Initially our RT was called, patient was placed on BiPAP Lasix was given. But there was no improvement, and patient was transferred to intensive care unit. In the intensive care unit patient was closely monitored, repeat ABG, and the respiratory status was worsening. I spoke to the patient's daughter Mrs. Alba, and also explained about her mother. It was decided to intubate. Patient was intubated, placed on ventilator. Patient is sedated. Past medical history: Breast cancer bilateral mastectomy. History of smoking. COPD. We'll follow her surgery. Heart failure in the past. Allergies no known drug allergy Personal history: Smoker in the past. Quit recently. Further history was taken from the chart. On examination. Patient on ventilator support ventilation. Chest bilateral decreased air entry, wheezing noted, regular heart sounds, tachycardia noted, abdomen soft, nontender, pedal edema negative. Chest x-ray showing increasing vascular congestion. Urgent triple lumen catheter was inserted, position verified. Patient is currently on IV fluid. Prior to that the patient was given nitroglycerin drip, Cardizem drip, and Lasix 60 mg P In spite of that there was no improvement. Repeat labs reviewed Mild positive troponin noted Cardiology, and pulmonology evaluation pending Assessment and comminution: 72-year-old female with a history of breast cancer bilateral CAD, CABG, severe COPD with home oxygen. Patient admitted with worsening shortness of breath. Possible pneumonia. Patient received a blood transfusion with the stool guaiac-positive. Currently worsening heart failure status. Worsening vascular congestion. Associated COPD exacerbation. Acute respiratory failure with hypoxemic and hypercapnic. On antibiotic, IV fluids. Monitor urine output. Overall prognosis is guarded. We'll continue the supportive care. Will follow the patient. ICU care Past Patient History - Past Medical History & Family History Past Medical History?: Yes - Past Social History Smoking Status: Never Smoked - CARDIAC Hx Congestive Heart Failure: Yes - PULMONARY Hx Asthma: Yes Hx Chronic Obstructive Pulmonary Disease (COPD): Yes Hx Emphysema: Yes - NEUROLOGICAL Hx Neurological Disorder: No - HEENT Hx Cataracts: Yes - RENAL Hx Chronic Kidney Disease: No - ENDOCRINE/METABOLIC Hx Endocrine Disorders: No - HEMATOLOGICAL/ONCOLOGICAL Hx Blood Disorders: No - INTEGUMENTARY Hx Dermatological Problems: No - MUSCULOSKELETAL/RHEUMATOLOGICAL Hx Falls: No - GASTROINTESTINAL Hx Gastrointestinal Disorders: No - GENITOURINARY/GYNECOLOGICAL Hx Genitourinary Disorders: No - PSYCHIATRIC Hx Anxiety: Yes Hx Substance Use: No - SURGICAL HISTORY Hx Surgeries: Yes Hx Cataract Extraction: Yes Other/Comment: R mastectomy 8 yrs ago L mastectomy 6 yrs ago - ANESTHESIA Hx Anesthesia: Yes Hx Anesthesia Reactions: No Meds Allergies/Adverse Reactions: Allergies Allergy/AdvReac Type Severity Reaction Status Date / Time adhesive tape Allergy Verified 08/30/17 21:45 latex Allergy Verified 08/30/17 21:45 - Medications Medications: Current Medications Albuterol/Ipratropium (Duoneb 3 Mg/0.5 Mg (3 Ml) Ud) 3 ml INH RQ4 [facility] Last Admin: 08/31/17 20:21 Dose: 3 ml Alprazolam (Xanax) 0.5 mg PO HS [facility] Last Admin: 08/31/17 22:00 Dose: Not Given Alprazolam (Xanax) 0.25 mg PO DAILY [facility] Stop: 09/07/17 11:31 Last Admin: 08/31/17 11:32 Dose: 0.25 mg Gabapentin (Neurontin) 300 mg PO HS [facility] Last Admin: 08/31/17 22:00 Dose: Not Given Piperacillin Sod/Tazobactam Sod (Zosyn 3.375 Gm Iv Premix) 3.375 gm in 50 mls @ 100 mls/hr IVPB Q8H [facility] Last Admin: 08/31/17 16:50 Dose: 100 mls/hr Diltiazem HCl 125 mg/ Dextrose 125 mls @ 5 mls/hr IV .Q24H JENNIFER; 5 MG/HR PRN Reason: Protocol Last Titration: 08/31/17 23:30 Dose: 0 mg/hr, 0 mls/hr Nitroglycerin/Dextrose (Nitroglycerin 50 Mg/250 Ml D5w) 50 mg in 250 mls @ 1.5 mls/hr IV .Q24H JENNIFER; 5 MCG/MIN PRN Reason: Protocol Last Titration: 08/31/17 23:30 Dose: 0 mcg/min, 0 mls/hr Propofol (Diprivan) 1,000 mg in 100 mls @ 1.919 mls/hr IV .Q24H PRN; Protocol; 5 MCG/KG/MIN PRN Reason: TITRATE PER MD ORDER Last Admin: 08/31/17 23:45 Dose: 5 mcg/kg/min, 1.919 mls/hr Methylprednisolone (Solu-Medrol) 40 mg IVP Q8 [facility] Last Admin: 08/31/17 22:25 Dose: 40 mg Montelukast Sodium (Singulair) 10 mg PO HS [facility] Last Admin: 08/31/17 22:00 Dose: Not Given Potassium Chloride (K-Dur 20 Meq Er Tab) 20 meq PO DAILY [facility] Last Admin: 08/31/17 11:32 Dose: 20 meq Rosuvastatin Calcium (Crestor) 10 mg PO [facility] Last Admin: 08/31/17 22:00 Dose: Not Given Results - Vital Signs Recent Vital Signs: Last Vital Signs Temp 98.2 F 08/31/17 18:00 Pulse 160 H 08/31/17 23:00 Resp 32 H 08/31/17 23:00 BP 132/81 08/31/17 23:00 Pulse Ox 96 08/31/17 23:00 - Labs Result Diagrams: 08/31/17 22:03 08/31/17 22:03 Labs: Laboratory Results - last 24 hr 08/31/17 08/31/17 08/31/17 00:22 00:32 01:39 WBC RBC Hgb Hct MCV MCH MCHC RDW Plt Count MPV Neut % (Auto) Lymph % (Auto) [place] % (Auto) Eos % (Auto) Baso % (Auto) Neut # (Auto) Lymph # (Auto) [place] # (Auto) Eos # (Auto) Baso # (Auto) Neutrophils % (Manual) Band Neutrophils % Lymphocytes % (Manual) Monocytes % (Manual) Nucleated RBC % Platelet Estimate Polychromasia Hypochromasia (manual) Anisocytosis (manual) Microcytosis (manual) Target Cells Tear Drop Cells Ovalocytes Puncture Site pCO2 pO2 HCO3 ABG pH ABG Total CO2 ABG O2 Saturation ABG Base Excess ABG Hemoglobin ABG Carboxyhemoglobin POC ABG HHb (Measured) ABG Methemoglobin Bill Test ABG Potassium A-a O2 Difference Respiratory Index Hgb O2 Saturation Glucose Lactate FiO2 Inspiratory BiPAP Expiratory BiPAP Sodium Potassium Chloride Carbon Dioxide Anion Gap BUN Creatinine Est GFR ( Amer) Est GFR (Non-Af Amer) Random Glucose Calcium Phosphorus Magnesium Ferritin 9.7 Total Bilirubin AST ALT Alkaline Phosphatase Total Creatine Kinase CK-MB (Mass) Troponin I NT-Pro-B Natriuret Pep Total Protein Albumin Globulin Albumin/Globulin Ratio TSH 3rd Generation 2.52 Arterial Blood Potassium Urine Color Urine Clarity Urine pH Ur Specific [place] Urine Protein Urine Glucose (UA) Urine Ketones Urine Blood Urine Nitrate Urine Bilirubin Urine Urobilinogen Ur Leukocyte Esterase Urine WBC (Auto) Urine RBC (Auto) Ur Squamous Epith Cells Stool Occult Blood Influenza Typ A,B (EIA) Negative for flu a/b Blood Type O POSITIVE Antibody Screen Positive Antibody Identification Anti E Antigen Identification E Antigen - NEGATIVE 08/31/17 08/31/17 08/31/17 02:27 06:15 07:53 WBC RBC Hgb Hct MCV MCH MCHC RDW Plt Count MPV Neut % (Auto) Lymph % (Auto) [place] % (Auto) Eos % (Auto) Baso % (Auto) Neut # (Auto) Lymph # (Auto) [place] # (Auto) Eos # (Auto) Baso # (Auto) Neutrophils % (Manual) Band Neutrophils % Lymphocytes % (Manual) Monocytes % (Manual) Nucleated RBC % Platelet Estimate Polychromasia Hypochromasia (manual) Anisocytosis (manual) Microcytosis (manual) Target Cells Tear Drop Cells Ovalocytes Puncture Site pCO2 pO2 HCO3 ABG pH ABG Total CO2 ABG O2 Saturation ABG Base Excess ABG Hemoglobin ABG Carboxyhemoglobin POC ABG HHb (Measured) ABG Methemoglobin Bill Test ABG Potassium A-a O2 Difference Respiratory Index Hgb O2 Saturation Glucose Lactate FiO2 Inspiratory BiPAP Expiratory BiPAP Sodium 136 Potassium 3.3 L Chloride 96 L Carbon Dioxide 27 Anion Gap 16 BUN 15 Creatinine 0.7 Est GFR ( Amer) > 60 Est GFR (Non-Af Amer) > 60 Random Glucose 231 H Calcium 8.7 Phosphorus Magnesium Ferritin Total Bilirubin 0.2 AST 21 ALT 17 Alkaline Phosphatase 60 Total Creatine Kinase 40 41 CK-MB (Mass) 0.57 0.94 Troponin I < 0.0120 < 0.0120 NT-Pro-B Natriuret Pep Total Protein 6.4 Albumin 3.4 L Globulin 3.0 Albumin/Globulin Ratio 1.2 TSH 3rd Generation Arterial Blood Potassium Urine Color Yellow Urine Clarity Clear Urine pH 5.0 Ur Specific [place] 1.014 Urine Protein Negative Urine Glucose (UA) Normal Urine Ketones Negative Urine Blood Negative Urine Nitrate Negative Urine Bilirubin Negative Urine Urobilinogen Normal Ur Leukocyte Esterase Neg Urine WBC (Auto) 1 Urine RBC (Auto) 1 Ur Squamous Epith Cells < 1 Stool Occult Blood Influenza Typ A,B (EIA) Blood Type Antibody Screen Antibody Identification Antigen Identification 08/31/17 08/31/17 08/31/17 14:26 15:07 20:20 WBC 4.8 RBC 4.47 Hgb 10.3 L D Hct 32.4 L MCV 72.6 L D MCH 23.1 L MCHC 31.8 L RDW 21.9 H Plt Count 489 H MPV 7.1 L Neut % (Auto) 87.4 H Lymph % (Auto) 8.0 L [place] % (Auto) 4.4 Eos % (Auto) 0.0 Baso % (Auto) 0.2 Neut # (Auto) 4.2 Lymph # (Auto) 0.4 L [place] # (Auto) 0.2 Eos # (Auto) 0.0 Baso # (Auto) 0.0 Neutrophils % (Manual) 93 H Band Neutrophils % Lymphocytes % (Manual) 4 L Monocytes % (Manual) 3 Nucleated RBC % Platelet Estimate Slightly increased H Polychromasia Slight Hypochromasia (manual) Slight Anisocytosis (manual) Slight Microcytosis (manual) Slight Target Cells Slight Tear Drop Cells Slight Ovalocytes Slight Puncture Site Rra pCO2 50 H pO2 88 HCO3 24.9 ABG pH 7.33 L ABG Total CO2 27.9 ABG O2 Saturation 98.4 H ABG Base Excess 0 ABG Hemoglobin 10.5 L ABG Carboxyhemoglobin 2.3 H POC ABG HHb (Measured) 1.5 ABG Methemoglobin 1.1 Bill Test Yes ABG Potassium A-a O2 Difference 563.0 Respiratory Index 6.4 Hgb O2 Saturation 95.0 Glucose Lactate FiO2 100.0 Inspiratory BiPAP Expiratory BiPAP Sodium Potassium Chloride Carbon Dioxide Anion Gap BUN Creatinine Est GFR ( Amer) Est GFR (Non-Af Amer) Random Glucose Calcium Phosphorus Magnesium Ferritin Total Bilirubin AST ALT Alkaline Phosphatase Total Creatine Kinase CK-MB (Mass) Troponin I NT-Pro-B Natriuret Pep Total Protein Albumin Globulin Albumin/Globulin Ratio TSH 3rd Generation Arterial Blood Potassium Urine Color Urine Clarity Urine pH Ur Specific [place] Urine Protein Urine Glucose (UA) Urine Ketones Urine Blood Urine Nitrate Urine Bilirubin Urine Urobilinogen Ur Leukocyte Esterase Urine WBC (Auto) Urine RBC (Auto) Ur Squamous Epith Cells Stool Occult Blood Positive H Influenza Typ A,B (EIA) Blood Type Antibody Screen Antibody Identification Antigen Identification 08/31/17 08/31/17 08/31/17 22:03 22:03 22:30 WBC 14.5 H D RBC 4.85 Hgb 10.9 L Hct 36.3 MCV 75.0 L D MCH 22.4 L MCHC 29.8 L RDW 21.6 H Plt Count 600 H D MPV 7.6 Neut % (Auto) 85.7 H Lymph % (Auto) 6.2 L [place] % (Auto) 7.7 Eos % (Auto) 0.0 Baso % (Auto) 0.4 Neut # (Auto) 12.4 H Lymph # (Auto) 0.9 L [place] # (Auto) 1.1 H Eos # (Auto) 0.0 Baso # (Auto) 0.1 Neutrophils % (Manual) 88 H Band Neutrophils % 1 Lymphocytes % (Manual) 6 L Monocytes % (Manual) 5 Nucleated RBC % 1 H Platelet Estimate Slightly increased H Polychromasia Slight Hypochromasia (manual) Moderate Anisocytosis (manual) Slight Microcytosis (manual) Moderate Target Cells Tear Drop Cells Ovalocytes Slight Puncture Site Rra pCO2 67 H pO2 149 H HCO3 24.1 ABG pH 7.23 L ABG Total CO2 30.2 H ABG O2 Saturation 99.4 H ABG Base Excess -1.1 ABG Hemoglobin ABG Carboxyhemoglobin POC ABG HHb (Measured) ABG Methemoglobin Bill Test Pos ABG Potassium 4.0 A-a O2 Difference 480.0 Respiratory Index 3.2 Hgb O2 Saturation Glucose 318 H Lactate 2.2 H FiO2 100.0 Inspiratory BiPAP 16 Expiratory BiPAP 8 Sodium 137 141.0 Potassium 4.5 Chloride 97 L 103.0 Carbon Dioxide 21 L Anion Gap 23 H BUN 19 H Creatinine 1.0 Est GFR ( Amer) > 60 Est GFR (Non-Af Amer) 54 Random Glucose 322 H Calcium 8.9 Phosphorus 9.5 H Magnesium 2.0 Ferritin Total Bilirubin 0.7 AST 52 H D ALT 30 Alkaline Phosphatase 65 Total Creatine Kinase 155 H CK-MB (Mass) 7.56 H Troponin I 0.7090 H* NT-Pro-B Natriuret Pep 4220 H Total Protein 7.6 Albumin 4.0 Globulin 3.5 Albumin/Globulin Ratio 1.1 TSH 3rd Generation Arterial Blood Potassium 4.0 Urine Color Urine Clarity Urine pH Ur Specific [place] Urine Protein Urine Glucose (UA) Urine Ketones Urine Blood Urine Nitrate Urine Bilirubin Urine Urobilinogen Ur Leukocyte Esterase Urine WBC (Auto) Urine RBC (Auto) Ur Squamous Epith Cells Stool Occult Blood Influenza Typ A,B (EIA) Blood Type Antibody Screen Antibody Identification Antigen Identification
[2017-09-01] MEDS ORDERED: Sodium Chloride 0.9% 1,000 ML IV SCH ×2 (00:30→14:14)
[2017-09-01 00:32] LABS: ABG ALLEN TEST POS; ARTERIAL BLOOD GAS HEMOGLOBIN 10.8 g/dL (11.7-17.4); ARTERIAL BLOOD GAS O2 SAT 97.6 % (95-98); ARTERIAL BLOOD GAS PCO2 63 mm/Hg (35-45); ARTERIAL BLOOD GAS PH 7.26 (7.35-7.45); ARTERIAL BLOOD GAS PO2 89 mm/Hg (80-100); ARTERIAL BLOOD GAS TCO2 30.2 mmol/L (22-28)
[2017-09-01] MEDS: Sodium Chloride 0.9% 1,000 ML IV SCH ×2 (01:00→11:00)
[2017-09-01] MEDS: Piperacill/Tazo 3.375gm in Dex 3.375 GM/50 ML BAG IVPB SCH ×3 (01:45→17:00)
[2017-09-01] MEDS: Albuterol-Ipratrop 3 mg / 0.5 (3 ml) UD INH SCH ×6 (03:25→21:26)
[2017-09-01 05:39] LABS: ABG ALLEN TEST POS; ARTERIAL BLOOD GAS HCO3 25.3 mmol/L (21-28); ARTERIAL BLOOD GAS HEMOGLOBIN 9.8 g/dL (11.7-17.4); ARTERIAL BLOOD GAS PCO2 51 mm/Hg (35-45); ARTERIAL BLOOD GAS PH 7.33 (7.35-7.45); ARTERIAL BLOOD GAS PO2 108 mm/Hg (80-100); ARTERIAL BLOOD GAS TCO2 28.5 mmol/L (22-28)
[2017-09-01] MEDS: MethylPREDNISolone 40 mg Vial IVP SCH ×3 (06:10→21:35)
[2017-09-01 06:37] LABS: BASO % 0.2 % (0.0-2.0); HEMOGLOBIN 9.8 g/dL (11.0-16.0); LYMPH # 0.4 K/uL (1.0-4.3); LYMPH % 3.3 % (20.0-40.0); MEAN CORPUSCULAR HEMOGLOBIN 22.8 pg (27.0-31.0); MEAN CORPUSCULAR HGB CONC 31.2 g/dL (33.0-37.0); MEAN PLATELET VOLUME 7.6 fL (7.2-11.7); NEUT # 11.4 K/uL (1.8-7.0); NEUT % 88.5 % (50.0-75.0); NRBC % 0.4 % (0.0-2.0); PLATELET COUNT 383 K/uL (130-400); RBC 4.31 Mil/uL (3.80-5.20); RED CELL DISTRIBUTION WIDTH 21.3 % (11.5-14.5); WHITE BLOOD COUNT 12.9 K/uL (4.8-10.8)
[2017-09-01 06:59] LABS: ALB/GLOB RATIO 1.1 (1.0-2.1); ALBUMIN 3.5 g/dL (3.5-5.0); CALCIUM 8.4 mg/dl (8.6-10.4); MAGNESIUM 1.8 mg/dL (1.6-2.3)
[2017-09-01] MEDS ORDERED: Magnesium Sulfate 1 gm in D5W 1 GM/100 ML BAG IVPB ONE (07:34)
[2017-09-01 08:42] LABS: ANISOCYTOSIS SLIGHT; BANDS 3 % (0-2); HYPOCHROMIC SLIGHT; LYMPHOCYTE 2 % (20-40); MONOCYTE 8 % (0-10); NEUTROPHIL 87 % (50-75); PLATELET ESTIMATE NORMAL (NORMAL); POIKILOCYTOSIS SLIGHT; TARGET CELLS SLIGHT; TOTAL CELLS COUNTED 100
[2017-09-01 08:43] LABS: OVALOCYTES SLIGHT
[2017-09-01] MEDS: Propofol 10 mg/ml 1,000 MG/100 ML VIAL IV PRN ×2 (08:52→13:00)
--- NOTE | 2017-09-01 09:22 | RAD ---
Chest x-ray single frontal view History: COPD. Shortness of breath. Comparison: 08/30/2017 Findings: Biapical pleural thickening with upper lobe granulomatous changes. Prominent diffuse increased interstitial lung markings. Prominent bibasilar airspace opacities with small bilateral pleural effusions. Right hilar prominence. Enlarged ectatic aorta with calcification at the aortic knob. Cardiomegaly. Degenerative changes in the spine and shoulders. Surgical clips in the left axilla. Probable chondroid lesion in the right proximal humerus. Impression: Biapical pleural thickening with upper lobe granulomatous changes. Prominent diffuse increased interstitial lung markings. Prominent bibasilar airspace opacities with small bilateral pleural effusions. Right hilar prominence. Enlarged ectatic aorta with calcification at the aortic knob. Cardiomegaly. Degenerative changes in the spine and shoulders. Surgical clips in the left axilla. Probable chondroid lesion in the right proximal humerus
--- NOTE | 2017-09-01 09:23 | RAD ---
Chest x-ray single frontal view History: Congestive heart failure. Comparison: 08/31/2017 Findings: Moderate venous congestion with bibasilar airspace opacities and small bilateral pleural effusions. Right paratracheal airspace opacity. Right hilar prominence. Status post median sternotomy and CABG. Cardiomegaly. Degenerative changes in the spine and shoulders. Surgical clips in left axilla. Impression: Moderate venous congestion with bibasilar airspace opacities and small bilateral pleural effusions. Right paratracheal airspace opacity. Right hilar prominence. Status post median sternotomy and CABG. Cardiomegaly.
--- NOTE | 2017-09-01 09:30 | RAD ---
Chest x-ray single frontal view History: Post intubation. Comparison: 08/31/2017 Findings: Endotracheal tube extending into the mid thoracic trachea. NG tube extending into the stomach. Right central venous catheter tip extending into the proximal right SVC. Diffuse increased interstitial lung markings. Biapical pleural thickening with upper lobe granulomatous changes. Bilateral hilar prominence. Prominent bibasilar airspace opacities with small left pleural effusion. Enlarged ectatic aorta with calcification at the aortic knob. Status post median sternotomy. Cardiomegaly. Degenerative changes in the spine and shoulders. Impression: Endotracheal tube extending into the mid thoracic trachea. NG tube extending into the stomach. Right central venous catheter tip extending into the proximal right SVC. Diffuse increased interstitial lung markings. Biapical pleural thickening with upper lobe granulomatous changes. Bilateral hilar prominence. Prominent bibasilar airspace opacities with small left pleural effusion. Enlarged ectatic aorta with calcification at the aortic knob. Status post median sternotomy. Cardiomegaly.
--- NOTE | 2017-09-01 09:44 | RAD ---
Chest x-ray single frontal view History: Ventilator. Comparison: 09/01/2017 Findings: Lines and tubes in stable position. Prominent diffuse increased interstitial lung markings which may represent underlying edema and or infiltrate. Clinical correlation. Patchy bibasilar airspace opacities with blunted bilateral costophrenic angles. Biapical pleural thickening with upper lobe granulomatous changes. Right hilar prominence. Calcification at the aortic knob. Tortuous ectatic aorta. Status post median sternotomy. Mild cardiomegaly. Degenerative changes in the spine and shoulders. Impression: Lines and tubes in stable position. Prominent diffuse increased interstitial lung markings which may represent underlying edema and or infiltrate. Clinical correlation. Patchy bibasilar airspace opacities with blunted bilateral costophrenic angles. Biapical pleural thickening with upper lobe granulomatous changes. Right hilar prominence. Calcification at the aortic knob. Tortuous ectatic aorta. Status post median sternotomy. Mild cardiomegaly.
[2017-09-01] MEDS: Potassium Chloride 20 mEq ER Tab PO SCH (10:00)
--- NOTE | 2017-09-01 12:17 | CARD ---
APPROVED REPORT EKG Measurement Heart [id number] [id number] <Conclusion> Sinus tachycardia with premature atrial complexes Nonspecific T wave abnormality Abnormal ECG
--- NOTE | 2017-09-01 17:45 | CP.CCUPN ---
<Javi Pickett - Last Filed: 09/01/17 17:45> CCU Subjective - Physician Review Events Since Last Encounter (Free Text): 09/01/17 17:45 Patient is a 72 year-old female who presented on 08/30 with shortness of breath, dyspnea on exertion, non-productive cough, and flu-like symptoms. She had previously failed two trials of antibiotics (Zithromax and Levaquin) before coming to the hospital where she was admitted to the medical floor. She has a history of COPD, emphysema, anxiety, asthma. CHF, DM, CKD, and breast cancer. During her course she developed anemia and hypokalemia prior to coming to the ICU for which [facility] received two units of PRBCs after testing positive for a stool guaic test. On 08/31 at 2000 a rapid response was called secondary to hypoxemia with an O2 saturation of 80-85% on 2 liters nasal cannula and tachycardic in the 150s. She was given Lasix 40mg, Bipap (10/5 @ 50%), Duoneb, nitroglycerine, cardizem, and an ECG was performed that revealed sinus tachycardia. She was subsequently intubated and ventilated to achieve an O2 saturation of 97%, and a TLC was placed in her right IJ. A chest xray obtained on 08/30 revealed right lower lobe consolidations consistent with PNA and mild pulmonary venous congestion. On 09/01, her chest xray showed similar findings with diffuse interstitial markings that corroborated her clinical respiratory distress. Her ABG at that time also revealed a consistent picture with acidotic changes and CO2 retention. Her blood cultures were negative for septicemia. Next of kin: Anjali Langford: [phone] Code: full (presumed) A/P neuro: anxiety, neuropathy - Xanax 0.25mg PO PRN - Neurontin 300mg PO qhs - Diprivan 1000mg qd for sedation in2b8 cards: CHF - Cardizem 125mg qd - nitroglycerin 50mg/250ml D5W 50mg IVPB qd - Crestor 10mg PO qhs - previous labs: TnI 0.709, CK-MB 7.56, CK 155, NT-Pro-BNP 4220 pulm: AECOPD, PNA, emphysema, asthma - Solu-Medrol 40mg IVP q8h - Duoneb 3mg/0.5mg (3ml) UD 3ml INH RQ4 - Zosyn 3.375g IV @ 100ml/hr IVPB q8h - Singulair 10mg PO qhs - Ventilator settings: 450 increase to 460; 80; 16; 5 - f/u with trach c/s nephro: CKD - follow urine output; 416ml 09/01 - I's and O's: +706 balance - c/s nephro if creatinine continues to rise (09/01 = 1.3) PPx: - KCl - 20mEq ER tab PO qd - d/c IVF NaCl 0.9% @ 50ml/hr IV q20h - d/c MgSO4 CCU Objective - Vital Signs / Intake & Output Vital Signs (Last 4 hours): Vital Signs Temp Pulse Resp BP Pulse Ox 09/01/17 16:00 98.5 F 114 H 24 114/80 96 09/01/17 15:00 117 H 24 115/79 95 09/01/17 14:00 108 H 21 98/66 L 98 Intake and Output (Last 8hrs): Intake & Output 09/01/17 09/01/17 09/01/17 06:59 14:59 22:59 Intake Total 728.1 1325.1 239.0 Output Total 45 628 258 Balance 683.1 697.1 -19.0 Weight 143 lb 4.807 oz Intake: IV 42 173 Intake, IV Amount 686.1 1152.1 239.0 Left Distal Port Forearm 44.9 Left Forearm 410 Right Distal Port Forearm 0 Right Distal Port 31.2 152.1 39.0 Internal Jugular Right Forearm 0 Right Proximal Port 200 1000 200 Internal Jugular Output: Gastric Amount 250 120 Stomach 250 120 Urine 45 278 138 Urethral (Rico) 45 278 138 Other 100 Other: # Bowel Movements 1 - Medications Active Medications: Active Medications Generic Name Dose Route Start Last Admin Trade Name Freq PRN Reason Stop Dose Admin Albuterol/Ipratropium 3 ml 08/31/17 04:00 09/01/17 11:04 Duoneb 3 Mg/0.5 Mg (3 Ml) Ud INH Not Given RQ4 JENNIFER Piperacillin Sod/Tazobactam Sod 3.375 gm in 50 mls @ 100 mls/hr 08/31/17 16: 45 09/01/17 09:00 Zosyn 3.375 Gm Iv Premix IVPB 100 mls/hr Q8H JENNIFER Administration Diltiazem HCl 125 mg/ Dextrose 125 mls @ 5 mls/hr 08/31/17 22:00 08/31/17 23: 30 IV 0 mg/hr .Q24H JENNIFER 0 mls/hr Protocol Titration 5 MG/HR Nitroglycerin/Dextrose 50 mg in 250 mls @ 1.5 mls/hr 08/31/17 22:45 08/31/17 23:30 Nitroglycerin 50 Mg/250 Ml D5w IV 0 mcg/min .Q24H JENNIFER 0 mls/hr Protocol Titration 5 MCG/MIN Propofol 1,000 mg in 100 mls @ 1.919 mls/hr 08/31/17 23:35 09/01/17 13:00 Diprivan IV 50 mcg/kg/min .Q24H PRN 19.187 mls/hr TITRATE PER MD ORDER Administration Protocol 5 MCG/KG/MIN Sodium Chloride 1,000 mls @ 50 mls/hr 09/01/17 14:14 Sodium Chloride 0.9% IV .Q20H JENNIFER Methylprednisolone 40 mg 08/31/17 00:45 09/01/17 06:10 Solu-Medrol IVP 40 mg Q8 JENNIFER Administration Montelukast Sodium 10 mg 08/31/17 22:00 08/31/17 22:00 Singulair PO Not Given HS JENNIFER Potassium Chloride 20 meq 08/31/17 11:15 09/01/17 10:00 K-Dur 20 Meq Er Tab PO 20 meq DAILY JENNIFER Administration Rosuvastatin Calcium 10 mg 08/31/17 22:00 08/31/17 22:00 Crestor PO Not Given HS JENNIFER - Patient Studies Lab Studies: Microbiology Studies 09/01/17 00:58 Gram Stain - Final Trachasp 08/30/17 00:15 Blood Culture - Preliminary Blood NO GROWTH AFTER 24 HOURS 08/30/17 23:05 Blood Culture - Preliminary Blood NO GROWTH AFTER 24 HOURS Lab Studies 09/01/17 09/01/17 09/01/17 Range/Units 06:30 06:30 05:15 WBC 12.9 H (4.8-10.8) K/uL RBC 4.31 (3.80-5.20) Mil/uL Hgb 9.8 L (11.0-16.0) g/dL Hct 31.4 L (34.0-47.0) % MCV 73.0 L D (81.0-99.0) fL MCH 22.8 L (27.0-31.0) pg MCHC 31.2 L (33.0-37.0) g/dL RDW 21.3 H (11.5-14.5) % Plt Count 383 D (130-400) K/uL MPV 7.6 (7.2-11.7) fL Neut % (Auto) 88.5 H (50.0-75.0) % Lymph % (Auto) 3.3 L (20.0-40.0) % [place] % (Auto) 8.0 (0.0-10.0) % Eos % (Auto) 0.0 (0.0-4.0) % Baso % (Auto) 0.2 (0.0-2.0) % Neut # (Auto) 11.4 H (1.8-7.0) K/uL Lymph # (Auto) 0.4 L (1.0-4.3) K/uL [place] # (Auto) 1.0 H (0.0-0.8) K/uL Eos # (Auto) 0.0 (0.0-0.7) K/uL Baso # (Auto) 0.0 (0.0-0.2) K/uL Neutrophils % (Manual) 87 H (50-75) % Band Neutrophils % 3 H (0-2) % Lymphocytes % (Manual) 2 L (20-40) % Monocytes % (Manual) 8 (0-10) % Nucleated RBC % (0-0) % Platelet Estimate Normal (NORMAL) Polychromasia Hypochromasia (manual) Slight Poikilocytosis (manual Slight Anisocytosis (manual) Slight Microcytosis (manual) Target Cells Slight Ovalocytes Slight Puncture Site Rr pCO2 51 H (35-45) mm/Hg pO2 108 H (80-100) mm/Hg HCO3 25.3 (21-28) mmol/L ABG pH 7.33 L (7.35-7.45) ABG Total CO2 28.5 H (22-28) mmol/L ABG O2 Saturation 99.0 H (95-98) % ABG Base Excess 0.5 (-2.0-3.0) mmol/L ABG Hemoglobin 9.8 L (11.7-17.4) g/dL ABG Carboxyhemoglobin 2.0 H (0.5-1.5) % POC ABG HHb (Measured) 1.0 (0.0-5.0) % ABG Methemoglobin 1.0 (0.0-3.0) % Bill Test Pos ABG Potassium (3.6-5.2) mmol/L A-a O2 Difference 399.0 mm/Hg Respiratory Index 3.7 Hgb O2 Saturation 95.9 (95.0-98.0) % Glucose (65-105) mg/dl Lactate (0.7-2.1) mmol/L Vent Mode Prvc Mechanical Rate 16 FiO2 80.0 % Tidal Volume 450 PEEP 5 Inspiratory BiPAP Expiratory BiPAP Sodium 141 (132-148) mmol/L Potassium 3.9 (3.6-5.2) mmol/L Chloride 99 (98-107) mmol/L Carbon Dioxide 29 (22-30) mmol/L Anion Gap 17 (10-20) BUN 26 H (7-17) mg/dL Creatinine 1.3 H (0.7-1.2) mg/dL Est GFR ( Amer) 49 Est GFR (Non-Af Amer) 40 Random Glucose 164 H (65-105) mg/dL Calcium 8.4 L (8.6-10.4) mg/dl Phosphorus 7.2 H (2.5-4.5) mg/dL Magnesium 1.8 (1.6-2.3) mg/dL Total Bilirubin 0.4 (0.2-1.3) mg/dL AST 108 H D (14-36) U/L ALT 83 H D (9-52) U/L Alkaline Phosphatase 63 (38-126) U/L Total Creatine Kinase (30-135) U/L CK-MB (Mass) (0.0-3.38) ng/mL Troponin I (0.00-0.120) ng/mL NT-Pro-B Natriuret Pep (0-900) pg/mL Total Protein 6.7 (6.3-8.3) g/dL Albumin 3.5 (3.5-5.0) g/dL Globulin 3.2 (2.2-3.9) gm/dL Albumin/Globulin Ratio 1.1 (1.0-2.1) Arterial Blood Potassium (3.6-5.2) mmol/L 09/01/17 08/31/17 08/31/17 Range/Units 00:24 22:30 22:03 WBC (4.8-10.8) K/uL RBC (3.80-5.20) Mil/uL Hgb (11.0-16.0) g/dL Hct (34.0-47.0) % MCV (81.0-99.0) fL MCH (27.0-31.0) pg MCHC (33.0-37.0) g/dL RDW (11.5-14.5) % Plt Count (130-400) K/uL MPV (7.2-11.7) fL Neut % (Auto) (50.0-75.0) % Lymph % (Auto) (20.0-40.0) % [place] % (Auto) (0.0-10.0) % Eos % (Auto) (0.0-4.0) % Baso % (Auto) (0.0-2.0) % Neut # (Auto) (1.8-7.0) K/uL Lymph # (Auto) (1.0-4.3) K/uL [place] # (Auto) (0.0-0.8) K/uL Eos # (Auto) (0.0-0.7) K/uL Baso # (Auto) (0.0-0.2) K/uL Neutrophils % (Manual) (50-75) % Band Neutrophils % (0-2) % Lymphocytes % (Manual) (20-40) % Monocytes % (Manual) (0-10) % Nucleated RBC % (0-0) % Platelet Estimate (NORMAL) Polychromasia Hypochromasia (manual) Poikilocytosis (manual Anisocytosis (manual) Microcytosis (manual) Target Cells Ovalocytes Puncture Site Rr Rra pCO2 63 H 67 H (35-45) mm/Hg pO2 89 149 H (80-100) mm/Hg HCO3 25.0 24.1 (21-28) mmol/L ABG pH 7.26 L 7.23 L (7.35-7.45) ABG Total CO2 30.2 H 30.2 H (22-28) mmol/L ABG O2 Saturation 97.6 99.4 H (95-98) % ABG Base Excess 0.2 -1.1 (-2.0-3.0) mmol/L ABG Hemoglobin 10.8 L (11.7-17.4) g/dL ABG Carboxyhemoglobin 2.1 H (0.5-1.5) % POC ABG HHb (Measured) 2.3 (0.0-5.0) % ABG Methemoglobin 1.2 (0.0-3.0) % Bill Test Pos Pos ABG Potassium 4.0 (3.6-5.2) mmol/L A-a O2 Difference 403.0 480.0 mm/Hg Respiratory Index 4.5 3.2 Hgb O2 Saturation 94.4 L (95.0-98.0) % Glucose 318 H (65-105) mg/dl Lactate 2.2 H (0.7-2.1) mmol/L Vent Mode Prvc Mechanical Rate 18 FiO2 80.0 100.0 % Tidal Volume 450 PEEP 5 Inspiratory BiPAP 16 Expiratory BiPAP 8 Sodium 141.0 137 (132-148) mmol/L Potassium 4.5 (3.6-5.2) mmol/L Chloride 103.0 97 L (98-107) mmol/L Carbon Dioxide 21 L (22-30) mmol/L Anion Gap 23 H (10-20) BUN 19 H (7-17) mg/dL Creatinine 1.0 (0.7-1.2) mg/dL Est GFR ( Amer) > 60 Est GFR (Non-Af Amer) 54 Random Glucose 322 H (65-105) mg/dL Calcium 8.9 (8.6-10.4) mg/dl Phosphorus 9.5 H (2.5-4.5) mg/dL Magnesium 2.0 (1.6-2.3) mg/dL Total Bilirubin 0.7 (0.2-1.3) mg/dL AST 52 H D (14-36) U/L ALT 30 (9-52) U/L Alkaline Phosphatase 65 (38-126) U/L Total Creatine Kinase 155 H (30-135) U/L CK-MB (Mass) 7.56 H (0.0-3.38) ng/mL Troponin I 0.7090 H* (0.00-0.120) ng/mL NT-Pro-B Natriuret Pep 4220 H (0-900) pg/mL Total Protein 7.6 (6.3-8.3) g/dL Albumin 4.0 (3.5-5.0) g/dL Globulin 3.5 (2.2-3.9) gm/dL Albumin/Globulin Ratio 1.1 (1.0-2.1) Arterial Blood Potassium 4.0 (3.6-5.2) mmol/L 08/31/17 08/31/17 Range/Units 22:03 20:20 WBC 14.5 H D (4.8-10.8) K/uL RBC 4.85 (3.80-5.20) Mil/uL Hgb 10.9 L (11.0-16.0) g/dL Hct 36.3 (34.0-47.0) % MCV 75.0 L D (81.0-99.0) fL MCH 22.4 L (27.0-31.0) pg MCHC 29.8 L (33.0-37.0) g/dL RDW 21.6 H (11.5-14.5) % Plt Count 600 H D (130-400) K/uL MPV 7.6 (7.2-11.7) fL Neut % (Auto) 85.7 H (50.0-75.0) % Lymph % (Auto) 6.2 L (20.0-40.0) % [place] % (Auto) 7.7 (0.0-10.0) % Eos % (Auto) 0.0 (0.0-4.0) % Baso % (Auto) 0.4 (0.0-2.0) % Neut # (Auto) 12.4 H (1.8-7.0) K/uL Lymph # (Auto) 0.9 L (1.0-4.3) K/uL [place] # (Auto) 1.1 H (0.0-0.8) K/uL Eos # (Auto) 0.0 (0.0-0.7) K/uL Baso # (Auto) 0.1 (0.0-0.2) K/uL Neutrophils % (Manual) 88 H (50-75) % Band Neutrophils % 1 (0-2) % Lymphocytes % (Manual) 6 L (20-40) % Monocytes % (Manual) 5 (0-10) % Nucleated RBC % 1 H (0-0) % Platelet Estimate Slightly increased H (NORMAL) Polychromasia Slight Hypochromasia (manual) Moderate Poikilocytosis (manual Anisocytosis (manual) Slight Microcytosis (manual) Moderate Target Cells Ovalocytes Slight Puncture Site Rra pCO2 50 H (35-45) mm/Hg pO2 88 (80-100) mm/Hg HCO3 24.9 (21-28) mmol/L ABG pH 7.33 L (7.35-7.45) ABG Total CO2 27.9 (22-28) mmol/L ABG O2 Saturation 98.4 H (95-98) % ABG Base Excess 0 (-2.0-3.0) mmol/L ABG Hemoglobin 10.5 L (11.7-17.4) g/dL ABG Carboxyhemoglobin 2.3 H (0.5-1.5) % POC ABG HHb (Measured) 1.5 (0.0-5.0) % ABG Methemoglobin 1.1 (0.0-3.0) % Bill Test Yes ABG Potassium (3.6-5.2) mmol/L A-a O2 Difference 563.0 mm/Hg Respiratory Index 6.4 Hgb O2 Saturation 95.0 (95.0-98.0) % Glucose (65-105) mg/dl Lactate (0.7-2.1) mmol/L Vent Mode Mechanical Rate FiO2 100.0 % Tidal Volume PEEP Inspiratory BiPAP Expiratory BiPAP Sodium (132-148) mmol/L Potassium (3.6-5.2) mmol/L Chloride (98-107) mmol/L Carbon Dioxide (22-30) mmol/L Anion Gap (10-20) BUN (7-17) mg/dL Creatinine (0.7-1.2) mg/dL Est GFR ( Amer) Est GFR (Non-Af Amer) Random Glucose (65-105) mg/dL Calcium (8.6-10.4) mg/dl Phosphorus (2.5-4.5) mg/dL Magnesium (1.6-2.3) mg/dL Total Bilirubin (0.2-1.3) mg/dL AST (14-36) U/L ALT (9-52) U/L Alkaline Phosphatase (38-126) U/L Total Creatine Kinase (30-135) U/L CK-MB (Mass) (0.0-3.38) ng/mL Troponin I (0.00-0.120) ng/mL NT-Pro-B Natriuret Pep (0-900) pg/mL Total Protein (6.3-8.3) g/dL Albumin (3.5-5.0) g/dL Globulin (2.2-3.9) gm/dL Albumin/Globulin Ratio (1.0-2.1) Arterial Blood Potassium (3.6-5.2) mmol/L Laboratory Results - last 24 hr 08/31/17 08/31/17 08/31/17 20:20 22:03 22:03 WBC 14.5 H D RBC 4.85 Hgb 10.9 L Hct 36.3 MCV 75.0 L D MCH 22.4 L MCHC 29.8 L RDW 21.6 H Plt Count 600 H D MPV 7.6 Neut % (Auto) 85.7 H Lymph % (Auto) 6.2 L [place] % (Auto) 7.7 Eos % (Auto) 0.0 Baso % (Auto) 0.4 Neut # (Auto) 12.4 H Lymph # (Auto) 0.9 L [place] # (Auto) 1.1 H Eos # (Auto) 0.0 Baso # (Auto) 0.1 Neutrophils % (Manual) 88 H Band Neutrophils % 1 Lymphocytes % (Manual) 6 L Monocytes % (Manual) 5 Nucleated RBC % 1 H Platelet Estimate Slightly increased H Polychromasia Slight Hypochromasia (manual) Moderate Poikilocytosis (manual Anisocytosis (manual) Slight Microcytosis (manual) Moderate Target Cells Ovalocytes Slight Puncture Site Rra pCO2 50 H pO2 88 HCO3 24.9 ABG pH 7.33 L ABG Total CO2 27.9 ABG O2 Saturation 98.4 H ABG Base Excess 0 ABG Hemoglobin 10.5 L ABG Carboxyhemoglobin 2.3 H POC ABG HHb (Measured) 1.5 ABG Methemoglobin 1.1 Bill Test Yes ABG Potassium A-a O2 Difference 563.0 Respiratory Index 6.4 Hgb O2 Saturation 95.0 Glucose Lactate Vent Mode Mechanical Rate FiO2 100.0 Tidal Volume PEEP Inspiratory BiPAP Expiratory BiPAP Sodium 137 Potassium 4.5 Chloride 97 L Carbon Dioxide 21 L Anion Gap 23 H BUN 19 H Creatinine 1.0 Est GFR ( Amer) > 60 Est GFR (Non-Af Amer) 54 Random Glucose 322 H Calcium 8.9 Phosphorus 9.5 H Magnesium 2.0 Total Bilirubin 0.7 AST 52 H D ALT 30 Alkaline Phosphatase 65 Total Creatine Kinase 155 H CK-MB (Mass) 7.56 H Troponin I 0.7090 H* NT-Pro-B Natriuret Pep 4220 H Total Protein 7.6 Albumin 4.0 Globulin 3.5 Albumin/Globulin Ratio 1.1 Arterial Blood Potassium 08/31/17 09/01/17 09/01/17 22:30 00:24 05:15 WBC RBC Hgb Hct MCV MCH MCHC RDW Plt Count MPV Neut % (Auto) Lymph % (Auto) [place] % (Auto) Eos % (Auto) Baso % (Auto) Neut # (Auto) Lymph # (Auto) [place] # (Auto) Eos # (Auto) Baso # (Auto) Neutrophils % (Manual) Band Neutrophils % Lymphocytes % (Manual) Monocytes % (Manual) Nucleated RBC % Platelet Estimate Polychromasia Hypochromasia (manual) Poikilocytosis (manual Anisocytosis (manual) Microcytosis (manual) Target Cells Ovalocytes Puncture Site Rra Rr Rr pCO2 67 H 63 H 51 H pO2 149 H 89 108 H HCO3 24.1 25.0 25.3 ABG pH 7.23 L 7.26 L 7.33 L ABG Total CO2 30.2 H 30.2 H 28.5 H ABG O2 Saturation 99.4 H 97.6 99.0 H ABG Base Excess -1.1 0.2 0.5 ABG Hemoglobin 10.8 L 9.8 L ABG Carboxyhemoglobin 2.1 H 2.0 H POC ABG HHb (Measured) 2.3 1.0 ABG Methemoglobin 1.2 1.0 Bill Test Pos Pos Pos ABG Potassium 4.0 A-a O2 Difference 480.0 403.0 399.0 Respiratory Index 3.2 4.5 3.7 Hgb O2 Saturation 94.4 L 95.9 Glucose 318 H Lactate 2.2 H Vent Mode Prvc Prvc Mechanical Rate 18 16 FiO2 100.0 80.0 80.0 Tidal Volume 450 450 PEEP 5 5 Inspiratory BiPAP 16 Expiratory BiPAP 8 Sodium 141.0 Potassium Chloride 103.0 Carbon Dioxide Anion Gap BUN Creatinine Est GFR ( Amer) Est GFR (Non-Af Amer) Random Glucose Calcium Phosphorus Magnesium Total Bilirubin AST ALT Alkaline Phosphatase Total Creatine Kinase CK-MB (Mass) Troponin I NT-Pro-B Natriuret Pep Total Protein Albumin Globulin Albumin/Globulin Ratio Arterial Blood Potassium 4.0 09/01/17 09/01/17 06:30 06:30 WBC 12.9 H RBC 4.31 Hgb 9.8 L Hct 31.4 L MCV 73.0 L D MCH 22.8 L MCHC 31.2 L RDW 21.3 H Plt Count 383 D MPV 7.6 Neut % (Auto) 88.5 H Lymph % (Auto) 3.3 L [place] % (Auto) 8.0 Eos % (Auto) 0.0 Baso % (Auto) 0.2 Neut # (Auto) 11.4 H Lymph # (Auto) 0.4 L [place] # (Auto) 1.0 H Eos # (Auto) 0.0 Baso # (Auto) 0.0 Neutrophils % (Manual) 87 H Band Neutrophils % 3 H Lymphocytes % (Manual) 2 L Monocytes % (Manual) 8 Nucleated RBC % Platelet Estimate Normal Polychromasia Hypochromasia (manual) Slight Poikilocytosis (manual Slight Anisocytosis (manual) Slight Microcytosis (manual) Target Cells Slight Ovalocytes Slight Puncture Site pCO2 pO2 HCO3 ABG pH ABG Total CO2 ABG O2 Saturation ABG Base Excess ABG Hemoglobin ABG Carboxyhemoglobin POC ABG HHb (Measured) ABG Methemoglobin Bill Test ABG Potassium A-a O2 Difference Respiratory Index Hgb O2 Saturation Glucose Lactate Vent Mode Mechanical Rate FiO2 Tidal Volume PEEP Inspiratory BiPAP Expiratory BiPAP Sodium 141 Potassium 3.9 Chloride 99 Carbon Dioxide 29 Anion Gap 17 BUN 26 H Creatinine 1.3 H Est GFR ( Amer) 49 Est GFR (Non-Af Amer) 40 Random Glucose 164 H Calcium 8.4 L Phosphorus 7.2 H Magnesium 1.8 Total Bilirubin 0.4 AST 108 H D ALT 83 H D Alkaline Phosphatase 63 Total Creatine Kinase CK-MB (Mass) Troponin I NT-Pro-B Natriuret Pep Total Protein 6.7 Albumin 3.5 Globulin 3.2 Albumin/Globulin Ratio 1.1 Arterial Blood Potassium Critical Care Progress Note - Nutrition Nutrition: Nutrition Category Date Time Status NPO Diet [DIET] Diets 09/01/17 Breakfast Active <[email or web address] - Last Filed: 09/01/17 20:55> CCU Objective - Vital Signs / Intake & Output Vital Signs (Last 4 hours): Vital Signs Temp Pulse Resp BP Pulse Ox 09/01/17 20:00 98.1 F 121 H 26 H 119/82 95 09/01/17 19:01 121 H 25 H 111/87 95 09/01/17 19:00 120 H 24 95 09/01/17 18:01 116 H 25 H 110/77 97 09/01/17 18:00 113 H 21 96 09/01/17 17:00 119 H 22 120/83 95 Intake and Output (Last 8hrs): Intake & Output 09/01/17 09/01/17 09/01/17 06:59 14:59 22:59 Intake Total 728.1 1325.1 505.3 Output Total 45 628 584 Balance 683.1 697.1 -78.7 Weight 143 lb 4.807 oz Intake: IV 42 173 0 Intake, IV Amount 686.1 1152.1 505.3 Left Distal Port Forearm 44.9 Left Forearm 410 Right Distal Port Forearm 0 Right Distal Port 31.2 152.1 105.3 Internal Jugular Right Forearm 0 Right Proximal Port 200 1000 400 Internal Jugular Output: Gastric Amount 250 300 Stomach 250 300 Urine 45 278 284 Urethral (Rico) 45 278 284 Other 100 Other: # Bowel Movements 1 - Medications Active Medications: Active Medications Generic Name Dose Route Start Last Admin Trade Name Freq PRN Reason Stop Dose Admin Albuterol/Ipratropium 3 ml 08/31/17 04:00 09/01/17 19:38 Duoneb 3 Mg/0.5 Mg (3 Ml) Ud INH Not Given RQ4 JENNIFER Piperacillin Sod/Tazobactam Sod 3.375 gm in 50 mls @ 100 mls/hr 08/31/17 16: 45 09/01/17 17:00 Zosyn 3.375 Gm Iv Premix IVPB 100 mls/hr Q8H JENNIFER Administration Diltiazem HCl 125 mg/ Dextrose 125 mls @ 5 mls/hr 08/31/17 22:00 08/31/17 23: 30 IV 0 mg/hr .Q24H JENNIFER 0 mls/hr Protocol Titration 5 MG/HR Nitroglycerin/Dextrose 50 mg in 250 mls @ 1.5 mls/hr 08/31/17 22:45 08/31/17 23:30 Nitroglycerin 50 Mg/250 Ml D5w IV 0 mcg/min .Q24H JENNIFER 0 mls/hr Protocol Titration 5 MCG/MIN Propofol 1,000 mg in 100 mls @ 1.919 mls/hr 08/31/17 23:35 09/01/17 17:45 Diprivan IV 40 mcg/kg/min .Q24H PRN 15.35 mls/hr TITRATE PER MD ORDER Titration Protocol 5 MCG/KG/MIN Sodium Chloride 1,000 mls @ 50 mls/hr 09/01/17 14:14 09/01/17 13:25 Sodium Chloride 0.9% IV 50 mls/hr .Q20H JENNIFER Administration Methylprednisolone 40 mg 08/31/17 00:45 09/01/17 14:00 Solu-Medrol IVP 40 mg Q8 JENNIFER Administration Montelukast Sodium 10 mg 08/31/17 22:00 08/31/17 22:00 Singulair PO Not Given HS JENNIFER Potassium Chloride 20 meq 08/31/17 11:15 09/01/17 10:00 K-Dur 20 Meq Er Tab PO 20 meq DAILY JENNIFER Administration Rosuvastatin Calcium 10 mg 08/31/17 22:00 08/31/17 22:00 Crestor PO Not Given HS JENNIFER - Patient Studies Lab Studies: Microbiology Studies 09/01/17 00:58 Gram Stain - Final Trachasp 08/30/17 00:15 Blood Culture - Preliminary Blood NO GROWTH AFTER 24 HOURS 08/30/17 23:05 Blood Culture - Preliminary Blood NO GROWTH AFTER 24 HOURS Lab Studies 09/01/17 09/01/17 09/01/17 Range/Units 06:30 06:30 05:15 WBC 12.9 H (4.8-10.8) K/uL RBC 4.31 (3.80-5.20) Mil/uL Hgb 9.8 L (11.0-16.0) g/dL Hct 31.4 L (34.0-47.0) % MCV 73.0 L D (81.0-99.0) fL MCH 22.8 L (27.0-31.0) pg MCHC 31.2 L (33.0-37.0) g/dL RDW 21.3 H (11.5-14.5) % Plt Count 383 D (130-400) K/uL MPV 7.6 (7.2-11.7) fL Neut % (Auto) 88.5 H (50.0-75.0) % Lymph % (Auto) 3.3 L (20.0-40.0) % [place] % (Auto) 8.0 (0.0-10.0) % Eos % (Auto) 0.0 (0.0-4.0) % Baso % (Auto) 0.2 (0.0-2.0) % Neut # (Auto) 11.4 H (1.8-7.0) K/uL Lymph # (Auto) 0.4 L (1.0-4.3) K/uL [place] # (Auto) 1.0 H (0.0-0.8) K/uL Eos # (Auto) 0.0 (0.0-0.7) K/uL Baso # (Auto) 0.0 (0.0-0.2) K/uL Neutrophils % (Manual) 87 H (50-75) % Band Neutrophils % 3 H (0-2) % Lymphocytes % (Manual) 2 L (20-40) % Monocytes % (Manual) 8 (0-10) % Nucleated RBC % (0-0) % Platelet Estimate Normal (NORMAL) Polychromasia Hypochromasia (manual) Slight Poikilocytosis (manual Slight Anisocytosis (manual) Slight Microcytosis (manual) Target Cells Slight Ovalocytes Slight Puncture Site Rr pCO2 51 H (35-45) mm/Hg pO2 108 H (80-100) mm/Hg HCO3 25.3 (21-28) mmol/L ABG pH 7.33 L (7.35-7.45) ABG Total CO2 28.5 H (22-28) mmol/L ABG O2 Saturation 99.0 H (95-98) % ABG Base Excess 0.5 (-2.0-3.0) mmol/L ABG Hemoglobin 9.8 L (11.7-17.4) g/dL ABG Carboxyhemoglobin 2.0 H (0.5-1.5) % POC ABG HHb (Measured) 1.0 (0.0-5.0) % ABG Methemoglobin 1.0 (0.0-3.0) % Bill Test Pos ABG Potassium (3.6-5.2) mmol/L A-a O2 Difference 399.0 mm/Hg Respiratory Index 3.7 Hgb O2 Saturation 95.9 (95.0-98.0) % Glucose (65-105) mg/dl Lactate (0.7-2.1) mmol/L Vent Mode Prvc Mechanical Rate 16 FiO2 80.0 % Tidal Volume 450 PEEP 5 Inspiratory BiPAP Expiratory BiPAP Sodium 141 (132-148) mmol/L Potassium 3.9 (3.6-5.2) mmol/L Chloride 99 (98-107) mmol/L Carbon Dioxide 29 (22-30) mmol/L Anion Gap 17 (10-20) BUN 26 H (7-17) mg/dL Creatinine 1.3 H (0.7-1.2) mg/dL Est GFR ( Amer) 49 Est GFR (Non-Af Amer) 40 Random Glucose 164 H (65-105) mg/dL Calcium 8.4 L (8.6-10.4) mg/dl Phosphorus 7.2 H (2.5-4.5) mg/dL Magnesium 1.8 (1.6-2.3) mg/dL Total Bilirubin 0.4 (0.2-1.3) mg/dL AST 108 H D (14-36) U/L ALT 83 H D (9-52) U/L Alkaline Phosphatase 63 (38-126) U/L Total Creatine Kinase (30-135) U/L CK-MB (Mass) (0.0-3.38) ng/mL Troponin I (0.00-0.120) ng/mL NT-Pro-B Natriuret Pep (0-900) pg/mL Total Protein 6.7 (6.3-8.3) g/dL Albumin 3.5 (3.5-5.0) g/dL Globulin 3.2 (2.2-3.9) gm/dL Albumin/Globulin Ratio 1.1 (1.0-2.1) Arterial Blood Potassium (3.6-5.2) mmol/L 09/01/17 08/31/17 08/31/17 Range/Units 00:24 22:30 22:03 WBC (4.8-10.8) K/uL RBC (3.80-5.20) Mil/uL Hgb (11.0-16.0) g/dL Hct (34.0-47.0) % MCV (81.0-99.0) fL MCH (27.0-31.0) pg MCHC (33.0-37.0) g/dL RDW (11.5-14.5) % Plt Count (130-400) K/uL MPV (7.2-11.7) fL Neut % (Auto) (50.0-75.0) % Lymph % (Auto) (20.0-40.0) % [place] % (Auto) (0.0-10.0) % Eos % (Auto) (0.0-4.0) % Baso % (Auto) (0.0-2.0) % Neut # (Auto) (1.8-7.0) K/uL Lymph # (Auto) (1.0-4.3) K/uL [place] # (Auto) (0.0-0.8) K/uL Eos # (Auto) (0.0-0.7) K/uL Baso # (Auto) (0.0-0.2) K/uL Neutrophils % (Manual) (50-75) % Band Neutrophils % (0-2) % Lymphocytes % (Manual) (20-40) % Monocytes % (Manual) (0-10) % Nucleated RBC % (0-0) % Platelet Estimate (NORMAL) Polychromasia Hypochromasia (manual) Poikilocytosis (manual Anisocytosis (manual) Microcytosis (manual) Target Cells Ovalocytes Puncture Site Rr Rra pCO2 63 H 67 H (35-45) mm/Hg pO2 89 149 H (80-100) mm/Hg HCO3 25.0 24.1 (21-28) mmol/L ABG pH 7.26 L 7.23 L (7.35-7.45) ABG Total CO2 30.2 H 30.2 H (22-28) mmol/L ABG O2 Saturation 97.6 99.4 H (95-98) % ABG Base Excess 0.2 -1.1 (-2.0-3.0) mmol/L ABG Hemoglobin 10.8 L (11.7-17.4) g/dL ABG Carboxyhemoglobin 2.1 H (0.5-1.5) % POC ABG HHb (Measured) 2.3 (0.0-5.0) % ABG Methemoglobin 1.2 (0.0-3.0) % Bill Test Pos Pos ABG Potassium 4.0 (3.6-5.2) mmol/L A-a O2 Difference 403.0 480.0 mm/Hg Respiratory Index 4.5 3.2 Hgb O2 Saturation 94.4 L (95.0-98.0) % Glucose 318 H (65-105) mg/dl Lactate 2.2 H (0.7-2.1) mmol/L Vent Mode Prvc Mechanical Rate 18 FiO2 80.0 100.0 % Tidal Volume 450 PEEP 5 Inspiratory BiPAP 16 Expiratory BiPAP 8 Sodium 141.0 137 (132-148) mmol/L Potassium 4.5 (3.6-5.2) mmol/L Chloride 103.0 97 L (98-107) mmol/L Carbon Dioxide 21 L (22-30) mmol/L Anion Gap 23 H (10-20) BUN 19 H (7-17) mg/dL Creatinine 1.0 (0.7-1.2) mg/dL Est GFR ( Amer) > 60 Est GFR (Non-Af Amer) 54 Random Glucose 322 H (65-105) mg/dL Calcium 8.9 (8.6-10.4) mg/dl Phosphorus 9.5 H (2.5-4.5) mg/dL Magnesium 2.0 (1.6-2.3) mg/dL Total Bilirubin 0.7 (0.2-1.3) mg/dL AST 52 H D (14-36) U/L ALT 30 (9-52) U/L Alkaline Phosphatase 65 (38-126) U/L Total Creatine Kinase 155 H (30-135) U/L CK-MB (Mass) 7.56 H (0.0-3.38) ng/mL Troponin I 0.7090 H* (0.00-0.120) ng/mL NT-Pro-B Natriuret Pep 4220 H (0-900) pg/mL Total Protein 7.6 (6.3-8.3) g/dL Albumin 4.0 (3.5-5.0) g/dL Globulin 3.5 (2.2-3.9) gm/dL Albumin/Globulin Ratio 1.1 (1.0-2.1) Arterial Blood Potassium 4.0 (3.6-5.2) mmol/L 08/31/17 Range/Units 22:03 WBC 14.5 H D (4.8-10.8) K/uL RBC 4.85 (3.80-5.20) Mil/uL Hgb 10.9 L (11.0-16.0) g/dL Hct 36.3 (34.0-47.0) % MCV 75.0 L D (81.0-99.0) fL MCH 22.4 L (27.0-31.0) pg MCHC 29.8 L (33.0-37.0) g/dL RDW 21.6 H (11.5-14.5) % Plt Count 600 H D (130-400) K/uL MPV 7.6 (7.2-11.7) fL Neut % (Auto) 85.7 H (50.0-75.0) % Lymph % (Auto) 6.2 L (20.0-40.0) % [place] % (Auto) 7.7 (0.0-10.0) % Eos % (Auto) 0.0 (0.0-4.0) % Baso % (Auto) 0.4 (0.0-2.0) % Neut # (Auto) 12.4 H (1.8-7.0) K/uL Lymph # (Auto) 0.9 L (1.0-4.3) K/uL [place] # (Auto) 1.1 H (0.0-0.8) K/uL Eos # (Auto) 0.0 (0.0-0.7) K/uL Baso # (Auto) 0.1 (0.0-0.2) K/uL Neutrophils % (Manual) 88 H (50-75) % Band Neutrophils % 1 (0-2) % Lymphocytes % (Manual) 6 L (20-40) % Monocytes % (Manual) 5 (0-10) % Nucleated RBC % 1 H (0-0) % Platelet Estimate Slightly increased H (NORMAL) Polychromasia Slight Hypochromasia (manual) Moderate Poikilocytosis (manual Anisocytosis (manual) Slight Microcytosis (manual) Moderate Target Cells Ovalocytes Slight Puncture Site pCO2 (35-45) mm/Hg pO2 (80-100) mm/Hg HCO3 (21-28) mmol/L ABG pH (7.35-7.45) ABG Total CO2 (22-28) mmol/L ABG O2 Saturation (95-98) % ABG Base Excess (-2.0-3.0) mmol/L ABG Hemoglobin (11.7-17.4) g/dL ABG Carboxyhemoglobin (0.5-1.5) % POC ABG HHb (Measured) (0.0-5.0) % ABG Methemoglobin (0.0-3.0) % Bill Test ABG Potassium (3.6-5.2) mmol/L A-a O2 Difference mm/Hg Respiratory Index Hgb O2 Saturation (95.0-98.0) % Glucose (65-105) mg/dl Lactate (0.7-2.1) mmol/L Vent Mode Mechanical Rate FiO2 % Tidal Volume PEEP Inspiratory BiPAP Expiratory BiPAP Sodium (132-148) mmol/L Potassium (3.6-5.2) mmol/L Chloride (98-107) mmol/L Carbon Dioxide (22-30) mmol/L Anion Gap (10-20) BUN (7-17) mg/dL Creatinine (0.7-1.2) mg/dL Est GFR ( Amer) Est GFR (Non-Af Amer) Random Glucose (65-105) mg/dL Calcium (8.6-10.4) mg/dl Phosphorus (2.5-4.5) mg/dL Magnesium (1.6-2.3) mg/dL Total Bilirubin (0.2-1.3) mg/dL AST (14-36) U/L ALT (9-52) U/L Alkaline Phosphatase (38-126) U/L Total Creatine Kinase (30-135) U/L CK-MB (Mass) (0.0-3.38) ng/mL Troponin I (0.00-0.120) ng/mL NT-Pro-B Natriuret Pep (0-900) pg/mL Total Protein (6.3-8.3) g/dL Albumin (3.5-5.0) g/dL Globulin (2.2-3.9) gm/dL Albumin/Globulin Ratio (1.0-2.1) Arterial Blood Potassium (3.6-5.2) mmol/L Laboratory Results - last 24 hr 08/31/17 08/31/17 08/31/17 22:03 22:03 22:30 WBC 14.5 H D RBC 4.85 Hgb 10.9 L Hct 36.3 MCV 75.0 L D MCH 22.4 L MCHC 29.8 L RDW 21.6 H Plt Count 600 H D MPV 7.6 Neut % (Auto) 85.7 H Lymph % (Auto) 6.2 L [place] % (Auto) 7.7 Eos % (Auto) 0.0 Baso % (Auto) 0.4 Neut # (Auto) 12.4 H Lymph # (Auto) 0.9 L [place] # (Auto) 1.1 H Eos # (Auto) 0.0 Baso # (Auto) 0.1 Neutrophils % (Manual) 88 H Band Neutrophils % 1 Lymphocytes % (Manual) 6 L Monocytes % (Manual) 5 Nucleated RBC % 1 H Platelet Estimate Slightly increased H Polychromasia Slight Hypochromasia (manual) Moderate Poikilocytosis (manual Anisocytosis (manual) Slight Microcytosis (manual) Moderate Target Cells Ovalocytes Slight Puncture Site Rra pCO2 67 H pO2 149 H HCO3 24.1 ABG pH 7.23 L ABG Total CO2 30.2 H ABG O2 Saturation 99.4 H ABG Base Excess -1.1 ABG Hemoglobin ABG Carboxyhemoglobin POC ABG HHb (Measured) ABG Methemoglobin Bill Test Pos ABG Potassium 4.0 A-a O2 Difference 480.0 Respiratory Index 3.2 Hgb O2 Saturation Glucose 318 H Lactate 2.2 H Vent Mode Mechanical Rate FiO2 100.0 Tidal Volume PEEP Inspiratory BiPAP 16 Expiratory BiPAP 8 Sodium 137 141.0 Potassium 4.5 Chloride 97 L 103.0 Carbon Dioxide 21 L Anion Gap 23 H BUN 19 H Creatinine 1.0 Est GFR ( Amer) > 60 Est GFR (Non-Af Amer) 54 Random Glucose 322 H Calcium 8.9 Phosphorus 9.5 H Magnesium 2.0 Total Bilirubin 0.7 AST 52 H D ALT 30 Alkaline Phosphatase 65 Total Creatine Kinase 155 H CK-MB (Mass) 7.56 H Troponin I 0.7090 H* NT-Pro-B Natriuret Pep 4220 H Total Protein 7.6 Albumin 4.0 Globulin 3.5 Albumin/Globulin Ratio 1.1 Arterial Blood Potassium 4.0 09/01/17 09/01/17 09/01/17 00:24 05:15 06:30 WBC 12.9 H RBC 4.31 Hgb 9.8 L Hct 31.4 L MCV 73.0 L D MCH 22.8 L MCHC 31.2 L RDW 21.3 H Plt Count 383 D MPV 7.6 Neut % (Auto) 88.5 H Lymph % (Auto) 3.3 L [place] % (Auto) 8.0 Eos % (Auto) 0.0 Baso % (Auto) 0.2 Neut # (Auto) 11.4 H Lymph # (Auto) 0.4 L [place] # (Auto) 1.0 H Eos # (Auto) 0.0 Baso # (Auto) 0.0 Neutrophils % (Manual) 87 H Band Neutrophils % 3 H Lymphocytes % (Manual) 2 L Monocytes % (Manual) 8 Nucleated RBC % Platelet Estimate Normal Polychromasia Hypochromasia (manual) Slight Poikilocytosis (manual Slight Anisocytosis (manual) Slight Microcytosis (manual) Target Cells Slight Ovalocytes Slight Puncture Site Rr Rr pCO2 63 H 51 H pO2 89 108 H HCO3 25.0 25.3 ABG pH 7.26 L 7.33 L ABG Total CO2 30.2 H 28.5 H ABG O2 Saturation 97.6 99.0 H ABG Base Excess 0.2 0.5 ABG Hemoglobin 10.8 L 9.8 L ABG Carboxyhemoglobin 2.1 H 2.0 H POC ABG HHb (Measured) 2.3 1.0 ABG Methemoglobin 1.2 1.0 Bill Test Pos Pos ABG Potassium A-a O2 Difference 403.0 399.0 Respiratory Index 4.5 3.7 Hgb O2 Saturation 94.4 L 95.9 Glucose Lactate Vent Mode Prvc Prvc Mechanical Rate 18 16 FiO2 80.0 80.0 Tidal Volume 450 450 PEEP 5 5 Inspiratory BiPAP Expiratory BiPAP Sodium Potassium Chloride Carbon Dioxide Anion Gap BUN Creatinine Est GFR ( Amer) Est GFR (Non-Af Amer) Random Glucose Calcium Phosphorus Magnesium Total Bilirubin AST ALT Alkaline Phosphatase Total Creatine Kinase CK-MB (Mass) Troponin I NT-Pro-B Natriuret Pep Total Protein Albumin Globulin Albumin/Globulin Ratio Arterial Blood Potassium 09/01/17 06:30 WBC RBC Hgb Hct MCV MCH MCHC RDW Plt Count MPV Neut % (Auto) Lymph % (Auto) [place] % (Auto) Eos % (Auto) Baso % (Auto) Neut # (Auto) Lymph # (Auto) [place] # (Auto) Eos # (Auto) Baso # (Auto) Neutrophils % (Manual) Band Neutrophils % Lymphocytes % (Manual) Monocytes % (Manual) Nucleated RBC % Platelet Estimate Polychromasia Hypochromasia (manual) Poikilocytosis (manual Anisocytosis (manual) Microcytosis (manual) Target Cells Ovalocytes Puncture Site pCO2 pO2 HCO3 ABG pH ABG Total CO2 ABG O2 Saturation ABG Base Excess ABG Hemoglobin ABG Carboxyhemoglobin POC ABG HHb (Measured) ABG Methemoglobin Bill Test ABG Potassium A-a O2 Difference Respiratory Index Hgb O2 Saturation Glucose Lactate Vent Mode Mechanical Rate FiO2 Tidal Volume PEEP Inspiratory BiPAP Expiratory BiPAP Sodium 141 Potassium 3.9 Chloride 99 Carbon Dioxide 29 Anion Gap 17 BUN 26 H Creatinine 1.3 H Est GFR ( Amer) 49 Est GFR (Non-Af Amer) 40 Random Glucose 164 H Calcium 8.4 L Phosphorus 7.2 H Magnesium 1.8 Total Bilirubin 0.4 AST 108 H D ALT 83 H D Alkaline Phosphatase 63 Total Creatine Kinase CK-MB (Mass) Troponin I NT-Pro-B Natriuret Pep Total Protein 6.7 Albumin 3.5 Globulin 3.2 Albumin/Globulin Ratio 1.1 Arterial Blood Potassium Critical Care Progress Note - Nutrition Nutrition: Nutrition Category Date Time Status NPO Diet [DIET] Diets 09/01/17 Breakfast Active Attending/Attestation - Attestation I have personally seen and examined this patient.: Yes I have fully participated in the care of the patient.: Yes I have reviewed all pertinent clinical information: Yes Notes (Text): 09/01/17 20:55 Today: August The Patient was seen and examined at the bedside, Medical records reviewed, and management issues were discussed and formulated with the house staff. I have reviewed all the relevant clinical, laboratory, hemodynamic, radiographic data and medications Events reviewed Pain issues, skin care, head of the bed elevation, glycemic control were addressed. Agree with above resident's assessment and treatment plans of care as transcribed in Dr. Pickett note.
[2017-09-02] MEDS: Piperacill/Tazo 3.375gm in Dex 3.375 GM/50 ML BAG IVPB SCH ×3 (00:07→17:14)
[2017-09-02] MEDS: Albuterol-Ipratrop 3 mg / 0.5 (3 ml) UD INH SCH ×6 (00:29→19:15)
[2017-09-02] MEDS: Propofol 10 mg/ml 1,000 MG/100 ML VIAL IV PRN ×2 (00:57→14:49)
[2017-09-02 05:40] LABS: ABG ALLEN TEST POS; ARTERIAL BLOOD GAS HCO3 27.6 mmol/L (21-28); ARTERIAL BLOOD GAS PCO2 52 mm/Hg (35-45); ARTERIAL BLOOD GAS PH 7.37 (7.35-7.45); ARTERIAL BLOOD GAS PO2 71 mm/Hg (80-100); ARTERIAL BLOOD GAS TCO2 31.7 mmol/L (22-28)
[2017-09-02] MEDS: MethylPREDNISolone 40 mg Vial IVP SCH ×3 (06:00→21:28)
[2017-09-02 06:34] LABS: BASO % 0.1 % (0.0-2.0); HEMOGLOBIN 9.6 g/dL (11.0-16.0); LYMPH # 0.5 K/uL (1.0-4.3); LYMPH % 2.7 % (20.0-40.0); MEAN CELL VOLUME 73.5 fL (81.0-99.0); MEAN CORPUSCULAR HEMOGLOBIN 22.6 pg (27.0-31.0); MEAN CORPUSCULAR HGB CONC 30.7 g/dL (33.0-37.0); MEAN PLATELET VOLUME 7.9 fL (7.2-11.7); MONO # 1.4 K/uL (0.0-0.8); MONO % 7.3 % (0.0-10.0); NEUT # 17.3 K/uL (1.8-7.0); NEUT % 89.9 % (50.0-75.0); NRBC % 0.3 % (0.0-2.0); PLATELET COUNT 314 K/uL (130-400); RBC 4.28 Mil/uL (3.80-5.20); WHITE BLOOD COUNT 19.2 K/uL (4.8-10.8)
[2017-09-02 06:56] LABS: ALBUMIN 3.3 g/dL (3.5-5.0); ALT/SGPT 85 U/L (9-52); AST/SGOT 71 U/L (14-36); BLOOD UREA NITROGEN 32 mg/dL (7-17); CALCIUM 7.9 mg/dl (8.6-10.4); GFR AFRICAN-AMERICAN > 60; GFR NON-AFRICAN AMERICAN 54; MAGNESIUM 2.2 mg/dL (1.6-2.3)
[2017-09-02 08:46] LABS: ANISOCYTOSIS SLIGHT; LYMPHOCYTE 2 % (20-40); MONOCYTE 7 % (0-10); NEUTROPHIL 91 % (50-75); PLATELET ESTIMATE NORMAL (NORMAL); POIKILOCYTOSIS SLIGHT; TOTAL CELLS COUNTED 100
[2017-09-02 08:47] LABS: HYPOCHROMIC SLIGHT; MICROCYTOSIS SLIGHT; OVALOCYTES SLIGHT
[2017-09-02] MEDS: Potassium Chloride 20 mEq ER Tab PO SCH (09:19)
--- NOTE | 2017-09-02 09:57 | CP.PCM.CON ---
History of Present Illness - History of Present Illness History of Present Illness: 72 year old patient, seen by Dr Guzman, with a history of chronic bronchitis, COPD, history of breast cancer, bilateral mastectomy admitted to the hospital 24 hours prior with increasing shortness of breath. Patient initially treated for COPD exacerbation. CXR initially showed RLL pneumonia. Later cxrs showed increased markings, diffuse,but clear costophrenic angles. Patient was given antibiotic Solu-Medrol and also for anemia patient received 2 units of blood transfusion. Following that the patient was transferred to floor, from the emergency room, and she started having increasing shortness of breath, rapid atrial fibrillation. She received IV lasix and only an hour of IV cardezem, and converted to s tacc. In the intensive care unit patient was closely monitored, repeat ABG, and the respiratory status was worsening. Pt was intubated. Pt has had remote CABG, and her daughter says taht Dr escobar was planning a c cath, maybe a peripheral angiogram. Review of Systems - Review of Systems All systems: reviewed and no additional remarkable complaints except (as above.) Past Patient History - Past Medical History & Family History Past Medical History?: Yes - Past Social History Smoking Status: Never Smoked - CARDIAC Hx Congestive Heart Failure: Yes - PULMONARY Hx Asthma: Yes Hx Chronic Obstructive Pulmonary Disease (COPD): Yes Hx Emphysema: Yes - NEUROLOGICAL Hx Neurological Disorder: No - HEENT Hx Cataracts: Yes - RENAL Hx Chronic Kidney Disease: No - ENDOCRINE/METABOLIC Hx Endocrine Disorders: No - HEMATOLOGICAL/ONCOLOGICAL Hx Blood Disorders: No - INTEGUMENTARY Hx Dermatological Problems: No - MUSCULOSKELETAL/RHEUMATOLOGICAL Hx Falls: No - GASTROINTESTINAL Hx Gastrointestinal Disorders: No - GENITOURINARY/GYNECOLOGICAL Hx Genitourinary Disorders: No - PSYCHIATRIC Hx Anxiety: Yes Hx Substance Use: No - SURGICAL HISTORY Hx Surgeries: Yes Hx Cataract Extraction: Yes Other/Comment: R mastectomy 8 yrs ago L mastectomy 6 yrs ago - ANESTHESIA Hx Anesthesia: Yes Hx Anesthesia Reactions: No Meds Allergies/Adverse Reactions: Allergies Allergy/AdvReac Type Severity Reaction Status Date / Time adhesive tape Allergy Verified 08/30/17 21:45 latex Allergy Verified 08/30/17 21:45 - Medications Medications: Current Medications Albuterol/Ipratropium (Duoneb 3 Mg/0.5 Mg (3 Ml) Ud) 3 ml INH RQ4 [facility] Last Admin: 09/02/17 07:31 Dose: 3 ml Piperacillin Sod/Tazobactam Sod (Zosyn 3.375 Gm Iv Premix) 3.375 gm in 50 mls @ 100 mls/hr IVPB Q8H [facility] Last Admin: 09/02/17 07:58 Dose: 100 mls/hr Diltiazem HCl 125 mg/ Dextrose 125 mls @ 5 mls/hr IV .Q24H [facility]; 5 MG/HR PRN Reason: Protocol Last Titration: 08/31/17 23:30 Dose: 0 mg/hr, 0 mls/hr Nitroglycerin/Dextrose (Nitroglycerin 50 Mg/250 Ml D5w) 50 mg in 250 mls @ 1.5 mls/hr IV .Q24H [facility]; 5 MCG/MIN PRN Reason: Protocol Last Titration: 08/31/17 23:30 Dose: 0 mcg/min, 0 mls/hr Propofol (Diprivan) 1,000 mg in 100 mls @ 1.919 mls/hr IV .Q24H PRN; Protocol; 5 MCG/KG/MIN PRN Reason: TITRATE PER MD ORDER Last Titration: 09/02/17 09:30 Dose: 10 mcg/kg/min, 3.837 mls/hr Sodium Chloride (Sodium Chloride 0.9%) 1,000 mls @ 50 mls/hr IV .Q20H [facility] Last Admin: 09/01/17 13:25 Dose: 50 mls/hr Methylprednisolone (Solu-Medrol) 40 mg IVP Q8 [facility] Last Admin: 09/02/17 06:00 Dose: 40 mg Montelukast Sodium (Singulair) 10 mg PO HS [facility] Last Admin: 09/01/17 21:36 Dose: 10 mg Potassium Chloride (K-Dur 20 Meq Er Tab) 20 meq PO DAILY [facility] Last Admin: 09/02/17 09:19 Dose: 20 meq Rosuvastatin Calcium (Crestor) 10 mg PO HS [facility] Last Admin: 09/01/17 21:36 Dose: 10 mg Physical Exam - Constitutional Appears: Chronically Ill - Head Exam Head Exam: ATRAUMATIC - Eye Exam Eye Exam: EOMI Pupil Exam: NORMAL ACCOMODATION - ENT Exam ENT Exam: Mucous Membranes Dry, Mucous Membranes Moist, Normal Oropharynx - Neck Exam Neck exam: Positive for: Normal Inspection - Cardiovascular Exam Cardiovascular Exam: REGULAR RHYTHM - GI/Abdominal Exam GI & Abdominal Exam: Normal Bowel Sounds - Exam External exam: NORMAL EXTERNAL EXAM - Extremities Exam Extremities exam: Positive for: normal inspection - Back Exam Back exam: NORMAL INSPECTION - Neurological Exam Neurological exam: Alert - Psychiatric Exam Psychiatric exam: Anxious - Skin Skin Exam: Normal Color Results - Vital Signs Recent Vital Signs: Last Vital Signs Temp 98.7 F 09/02/17 04:00 Pulse 122 H 09/02/17 07:00 Resp 26 H 09/02/17 07:00 BP 134/87 09/02/17 06:03 Pulse Ox 95 09/02/17 07:00 - Labs Result Diagrams: 09/02/17 06:29 09/02/17 06:29 Labs: Laboratory Results - last 24 hr 09/02/17 09/02/17 09/02/17 05:21 06:29 06:29 WBC 19.2 H RBC 4.28 Hgb 9.6 L Hct 31.4 L MCV 73.5 L MCH 22.6 L MCHC 30.7 L RDW 22.0 H Plt Count 314 MPV 7.9 Neut % (Auto) 89.9 H Lymph % (Auto) 2.7 L [place] % (Auto) 7.3 Eos % (Auto) 0.0 Baso % (Auto) 0.1 Neut # (Auto) 17.3 H Lymph # (Auto) 0.5 L [place] # (Auto) 1.4 H Eos # (Auto) 0.0 Baso # (Auto) 0.0 Neutrophils % (Manual) 91 H Lymphocytes % (Manual) 2 L Monocytes % (Manual) 7 Platelet Estimate Normal Hypochromasia (manual) Slight Poikilocytosis (manual Slight Anisocytosis (manual) Slight Microcytosis (manual) Slight Ovalocytes Slight Puncture Site Rr pCO2 52 H pO2 71 L HCO3 27.6 ABG pH 7.37 ABG Total CO2 31.7 H ABG O2 Saturation 96.0 ABG Base Excess 3.6 H Bill Test Pos ABG Potassium 3.9 A-a O2 Difference 292.0 Respiratory Index 4.1 Sodium 144.0 141 Chloride 107.0 103 Glucose 211 H Lactate 1.4 Vent Mode Prvc Mechanical Rate 16 FiO2 60.0 Tidal Volume 470 PEEP 5 Potassium 3.9 Carbon Dioxide 30 Anion Gap 12 BUN 32 H Creatinine 1.0 Est GFR ( Amer) > 60 Est GFR (Non-Af Amer) 54 Random Glucose 197 H Calcium 7.9 L Phosphorus 3.8 Magnesium 2.2 Total Bilirubin 0.9 AST 71 H D ALT 85 H Alkaline Phosphatase 65 Total Protein 6.5 Albumin 3.3 L Globulin 3.2 Albumin/Globulin Ratio 1.0 Arterial Blood Potassium 3.9 - EKG Data EKG shows normal: Sinus rhythm (s tach, no ischemic changes) Assessment & Plan - Assessment and Plan (Free Text) Assessment: 1. Trivial TNI elevation suggests increased sympathetic tone, demand ischemia from tachycardia and anemia. Conservative management is advised. recommend asa 81 ng if no bleeding risk. Also herparin prophylaxis. 2. Lungs are very clear on exam and not c/w chf. 3. Echo to assess LV EF.
--- NOTE | 2017-09-02 10:14 | RAD ---
HISTORY: sob COMPARISON: 09/01/2017 FINDINGS: LUNGS: Multifocal ill-defined pulmonary opacity without herbert consolidation. Possible interstitial pulmonary edema. PLEURA: No significant pleural effusion identified, no pneumothorax apparent. CARDIOVASCULAR: Normal heart size. ET tube, NG tube and right IJ multi lumen central venous catheter unchanged. Status post CABG. No congestive change. OSSEOUS STRUCTURES: No significant abnormalities. VISUALIZED UPPER ABDOMEN: Normal. OTHER FINDINGS: None. IMPRESSION: Multifocal ill-defined opacity grossly unchanged from prior examination. Possible interstitial pulmonary edema. Please correlate clinically. No herbert consolidation. Otherwise no change.
--- NOTE | 2017-09-02 10:23 | CP.PCM.PN ---
Subjective - Date & Time of Evaluation Date of Evaluation: 09/02/17 Time of Evaluation: 10:21 - Subjective Subjective: pt seen in icu entubated on ventilator apeare comfortale tachycardia bp stable lung cleare [id number] abd soft lower limps no oeadeama cxr llpnumonia ass ac resp fialiur s/p ac exa copd sever hypoxeamia tachycardia Objective - Vital Signs/Intake and Output Vital Signs (last 24 hours): Temp Pulse Resp BP Pulse Ox 98.7 F 122 H 26 H 134/87 95 09/02/17 04:00 09/02/17 07:00 09/02/17 07:00 09/02/17 06:03 09/02/17 07:00 Intake and Output: 09/02/17 09/02/17 06:59 18:59 Intake Total 1222.2 97.0 Output Total 530 0 Balance 692.2 97.0 - Medications Medications: Current Medications Albuterol/Ipratropium (Duoneb 3 Mg/0.5 Mg (3 Ml) Ud) 3 ml INH RQ4 [facility]ENN[facility] Last Admin: 09/02/17 07:31 Dose: 3 ml Piperacillin Sod/Tazobactam Sod (Zosyn 3.375 Gm Iv Premix) 3.375 gm in 50 mls @ 100 mls/hr IVPB Q8H [facility] Last Admin: 09/02/17 07:58 Dose: 100 mls/hr Diltiazem HCl 125 mg/ Dextrose 125 mls @ 5 mls/hr IV .Q24H JENN[facility]ER; 5 MG/HR PRN Reason: Protocol Last Titration: 08/31/17 23:30 Dose: 0 mg/hr, 0 mls/hr Nitroglycerin/Dextrose (Nitroglycerin 50 Mg/250 Ml D5w) 50 mg in 250 mls @ 1.5 mls/hr IV .Q24H JENN[facility]ER; 5 MCG/MIN PRN Reason: Protocol Last Titration: 08/31/17 23:30 Dose: 0 mcg/min, 0 mls/hr Propofol (Diprivan) 1,000 mg in 100 mls @ 1.919 mls/hr IV .Q24H PRN; Protocol; 5 MCG/KG/MIN PRN Reason: TITRATE PER MD ORDER Last Titration: 09/02/17 09:30 Dose: 10 mcg/kg/min, 3.837 mls/hr Sodium Chloride (Sodium Chloride 0.9%) 1,000 mls @ 50 mls/hr IV .Q20H [facility] Last Admin: 09/01/17 13:25 Dose: 50 mls/hr Methylprednisolone (Solu-Medrol) 40 mg IVP Q8 [facility] Last Admin: 09/02/17 06:00 Dose: 40 mg Montelukast Sodium (Singulair) 10 mg PO HS [facility] Last Admin: 09/01/17 21:36 Dose: 10 mg Potassium Chloride (K-Dur 20 Meq Er Tab) 20 meq PO DAILY [facility] Last Admin: 09/02/17 09:19 Dose: 20 meq Rosuvastatin Calcium (Crestor) 10 mg PO HS [facility] Last Admin: 09/01/17 21:36 Dose: 10 mg - Labs Labs: 09/02/17 06:29 09/02/17 06:29 PT 12.6 SECONDS (9.7-12.2) H 08/30/17 23:18 INR 1.1 08/30/17 23:18 APTT 28 SECONDS (21-34) 08/30/17 23:18 - Constitutional Appears: In Acute Distress - Head Exam Head Exam: ATRAUMATIC - Eye Exam Eye Exam: Normal appearance Pupil Exam: NORMAL ACCOMODATION - ENT Exam Additional comments: entubated - Neck Exam Neck Exam: Full ROM - Respiratory Exam Respiratory Exam: Decreased Breath Sounds, Clear to Ausculation Bilateral - Cardiovascular Exam Cardiovascular Exam: Tachycardia - GI/Abdominal Exam GI & Abdominal Exam: Normal Bowel Sounds - Extremities Exam Extremities Exam: Normal Inspection - Back Exam Back Exam: NORMAL INSPECTION - Skin Skin Exam: Pallor Assessment and Plan - Assessment and Plan (Free Text) Assessment: s/p resp failiur hypoxeamia pnumonia ac on vent Plan: cont as per icu orders
--- NOTE | 2017-09-02 10:44 | PN ---
The patient is in the ventilator, on supportive care. Discussed with son vent management and weanings, antibiotic. Leslie Mak MD
--- NOTE | 2017-09-02 10:46 | CON ---
DATE: 09/01/2017 HISTORY OF PRESENT ILLNESS: Ms. Langford is a 72-year-old female admitted to the hospital with chief complaint of weakness, fatigue, tiredness. The patient has shortness of breath. The patient also has COPD, on home oxygen. She has one previous intubation three years ago. PHYSICAL EXAMINATION: GENERAL: The patient is awake, alert, oriented. VITAL SIGNS: Temperature 98, pulse 90. HEENT: Within normal limits. NECK: Supple. CHEST: Symmetrical. HEART: Regular. ABDOMEN: Soft. EXTREMITIES: No edema. IMPRESSION: The patient suffers from . PLAN: The patient is to get bedrest, supportive care, continue treatment with bronchodilators. Leslie Mak MD
[2017-09-02] MEDS: Dexmedetomidine Hydrochloride 200 MCG in Sodium Chloride 0.9% 48 ML IV PRN ×2 (11:13→14:28)
[2017-09-02] MEDS ORDERED: Azithromycin 500 MG in Sodium Chloride 0.9% 250 ML IVPB SCH (13:00)
--- NOTE | 2017-09-02 15:33 | PN ---
DATE: 09/02/2017 The patient is on ventilator, supportive care. We will add CPAP support, IV antibiotics. Lungs, decreased breath sounds. . Leslie Mak MD
--- NOTE | 2017-09-02 15:36 | CP.CCUPN ---
<Javi Pickett - Last Filed: 09/02/17 15:35> CCU Subjective - Physician Review Events Since Last Encounter (Free Text): 09/02/17 15:35 patient seen and examined at bedside more awake and aware breathing better tolerating diet CCU Objective - Vital Signs / Intake & Output Vital Signs (Last 4 hours): Vital Signs Temp Pulse Resp BP Pulse Ox 09/02/17 14:01 132 H 24 132/94 H 95 09/02/17 14:00 131 H 21 95 09/02/17 13:01 117 H 20 122/87 97 09/02/17 13:00 115 H 20 09/02/17 12:01 123 H 23 150/88 95 09/02/17 12:00 98.2 F 124 H 20 153/95 H 94 L Intake and Output (Last 8hrs): Intake & Output 09/02/17 09/02/17 09/02/17 06:59 14:59 22:59 Intake Total 869.8 197.0 Output Total 410 0 Balance 459.8 197.0 Weight 142 lb 13.753 oz 142 lb 14.4 oz Intake: IV 175 64.2 Intake, IV Amount 524.8 57.8 Right Distal Port 124.8 7.8 Internal Jugular Right Proximal Port 400 50 Internal Jugular Tube Feeding 170 75 Output: Urine 410 0 Urethral (Rico) 410 0 Other: # Bowel Movements 0 - Medications Active Medications: Active Medications Generic Name Dose Route Start Last Admin Trade Name Freq PRN Reason Stop Dose Admin Albuterol/Ipratropium 3 ml 08/31/17 04:00 09/02/17 11:17 Duoneb 3 Mg/0.5 Mg (3 Ml) Ud INH Not Given RQ4 JENNIFER Aspirin 81 mg 09/02/17 10:30 09/02/17 11:13 Aspirin Chewable PO 81 mg DAILY JENNIFER Administration Diltiazem HCl 30 mg 09/02/17 14:00 09/02/17 13:19 Cardizem PO 30 mg QID JENNIFER Administration Heparin Sodium (Porcine) 5,000 units 09/02/17 22:00 Heparin SC Q12 JENNIFER Piperacillin Sod/Tazobactam Sod 3.375 gm in 50 mls @ 100 mls/hr 08/31/17 16: 45 09/02/17 07:58 Zosyn 3.375 Gm Iv Premix IVPB 100 mls/hr Q8H JENNIFER Administration Diltiazem HCl 125 mg/ Dextrose 125 mls @ 5 mls/hr 08/31/17 22:00 08/31/17 23: 30 IV 0 mg/hr .Q24H JENNIFER 0 mls/hr Protocol Titration 5 MG/HR Sodium Chloride 1,000 mls @ 50 mls/hr 09/01/17 14:14 09/01/17 13:25 Sodium Chloride 0.9% IV 50 mls/hr .Q20H JENNIFER Administration Azithromycin 500 mg/ Sodium 250 mls @ 250 mls/hr 09/02/17 13:00 09/02/17 13: 17 Chloride IVPB 250 mls/hr Q24H JENNIFER Administration Dexmedetomidine HCl 200 mcg/ 50 mls @ 3.24 mls/hr 09/02/17 10:33 09/02/17 14: 28 Sodium Chloride IV 1 mcg/kg/hr TITR PRN 16.2 mls/hr Sedation Administration Protocol 0.2 MCG/KG/HR Propofol 1,000 mg in 100 mls @ 3.889 mls/hr 09/02/17 14:40 09/02/17 14:49 Diprivan IV 10 mcg/kg/min .Q24H PRN 3.889 mls/hr TITRATE PER MD ORDER Administration Protocol 10 MCG/KG/MIN Insulin Human Regular 1 unit 09/02/17 18:00 Novolin R SC Q6 JENNIFER Protocol Methylprednisolone 40 mg 08/31/17 00:45 09/02/17 06:00 Solu-Medrol IVP 40 mg Q8 JENNIFER Administration Montelukast Sodium 10 mg 08/31/17 22:00 09/01/17 21:36 Singulair PO 10 mg HS JENNIFER Administration Pantoprazole Sodium 40 mg 09/02/17 10:45 09/02/17 11:13 Protonix Inj IVP 40 mg DAILY JENNIFER Administration Potassium Chloride 20 meq 08/31/17 11:15 09/02/17 09:19 K-Dur 20 Meq Er Tab PO 20 meq DAILY JENNIFER Administration Rosuvastatin Calcium 10 mg 08/31/17 22:00 09/01/17 21:36 Crestor PO 10 mg HS JENNIFER Administration - Patient Studies Lab Studies: Microbiology Studies 08/31/17 22:15 MRSA Culture (Admit) - Final Nose 08/30/17 00:15 Blood Culture - Preliminary Blood NO GROWTH AFTER 48 HOURS 08/30/17 23:05 Blood Culture - Preliminary Blood NO GROWTH AFTER 48 HOURS 09/01/17 00:58 Gram Stain - Final Trachasp Lab Studies 09/02/17 09/02/17 09/02/17 Range/Units 13:10 13:01 06:29 WBC (4.8-10.8) K/uL RBC (3.80-5.20) Mil/uL Hgb (11.0-16.0) g/dL Hct (34.0-47.0) % MCV (81.0-99.0) fL MCH (27.0-31.0) pg MCHC (33.0-37.0) g/dL RDW (11.5-14.5) % Plt Count (130-400) K/uL MPV (7.2-11.7) fL Neut % (Auto) (50.0-75.0) % Lymph % (Auto) (20.0-40.0) % Isabela % (Auto) (0.0-10.0) % Eos % (Auto) (0.0-4.0) % Baso % (Auto) (0.0-2.0) % Neut # (Auto) (1.8-7.0) K/uL Lymph # (Auto) (1.0-4.3) K/uL Isabela # (Auto) (0.0-0.8) K/uL Eos # (Auto) (0.0-0.7) K/uL Baso # (Auto) (0.0-0.2) K/uL Neutrophils % (Manual) (50-75) % Lymphocytes % (Manual) (20-40) % Monocytes % (Manual) (0-10) % Platelet Estimate (NORMAL) Hypochromasia (manual) Poikilocytosis (manual Anisocytosis (manual) Microcytosis (manual) Ovalocytes D-Dimer, Quantitative 2557 H (0-243) ng/mlDDU Puncture Site pCO2 (35-45) mm/Hg pO2 (80-100) mm/Hg HCO3 (21-28) mmol/L ABG pH (7.35-7.45) ABG Total CO2 (22-28) mmol/L ABG O2 Saturation (95-98) % ABG Base Excess (-2.0-3.0) mmol/L Bill Test ABG Potassium (3.6-5.2) mmol/L A-a O2 Difference mm/Hg Respiratory Index Sodium 141 (132-148) mmol/l Chloride 103 (98-107) mmol/L Glucose (65-105) mg/dl Lactate (0.7-2.1) mmol/L Vent Mode Mechanical Rate FiO2 % Tidal Volume PEEP Potassium 3.9 (3.6-5.2) mmol/L Carbon Dioxide 30 (22-30) mmol/L Anion Gap 12 (10-20) BUN 32 H (7-17) mg/dL Creatinine 1.0 (0.7-1.2) mg/dL Est GFR ( Amer) > 60 Est GFR (Non-Af Amer) 54 POC Glucose (mg/dL) 206 H (65-110) mg/dL Random Glucose 197 H (65-105) mg/dL Calcium 7.9 L (8.6-10.4) mg/dl Phosphorus 3.8 (2.5-4.5) mg/dL Magnesium 2.2 (1.6-2.3) mg/dL Total Bilirubin 0.9 (0.2-1.3) mg/dL AST 71 H D (14-36) U/L ALT 85 H (9-52) U/L Alkaline Phosphatase 65 (38-126) U/L Total Protein 6.5 (6.3-8.3) g/dL Albumin 3.3 L (3.5-5.0) g/dL Globulin 3.2 (2.2-3.9) gm/dL Albumin/Globulin Ratio 1.0 (1.0-2.1) Arterial Blood Potassium (3.6-5.2) mmol/L 09/02/17 09/02/17 Range/Units 06:29 05:21 WBC 19.2 H (4.8-10.8) K/uL RBC 4.28 (3.80-5.20) Mil/uL Hgb 9.6 L (11.0-16.0) g/dL Hct 31.4 L (34.0-47.0) % MCV 73.5 L (81.0-99.0) fL MCH 22.6 L (27.0-31.0) pg MCHC 30.7 L (33.0-37.0) g/dL RDW 22.0 H (11.5-14.5) % Plt Count 314 (130-400) K/uL MPV 7.9 (7.2-11.7) fL Neut % (Auto) 89.9 H (50.0-75.0) % Lymph % (Auto) 2.7 L (20.0-40.0) % Isabela % (Auto) 7.3 (0.0-10.0) % Eos % (Auto) 0.0 (0.0-4.0) % Baso % (Auto) 0.1 (0.0-2.0) % Neut # (Auto) 17.3 H (1.8-7.0) K/uL Lymph # (Auto) 0.5 L (1.0-4.3) K/uL Isabela # (Auto) 1.4 H (0.0-0.8) K/uL Eos # (Auto) 0.0 (0.0-0.7) K/uL Baso # (Auto) 0.0 (0.0-0.2) K/uL Neutrophils % (Manual) 91 H (50-75) % Lymphocytes % (Manual) 2 L (20-40) % Monocytes % (Manual) 7 (0-10) % Platelet Estimate Normal (NORMAL) Hypochromasia (manual) Slight Poikilocytosis (manual Slight Anisocytosis (manual) Slight Microcytosis (manual) Slight Ovalocytes Slight D-Dimer, Quantitative (0-243) ng/mlDDU Puncture Site Rr pCO2 52 H (35-45) mm/Hg pO2 71 L (80-100) mm/Hg HCO3 27.6 (21-28) mmol/L ABG pH 7.37 (7.35-7.45) ABG Total CO2 31.7 H (22-28) mmol/L ABG O2 Saturation 96.0 (95-98) % ABG Base Excess 3.6 H (-2.0-3.0) mmol/L Bill Test Pos ABG Potassium 3.9 (3.6-5.2) mmol/L A-a O2 Difference 292.0 mm/Hg Respiratory Index 4.1 Sodium 144.0 (132-148) mmol/l Chloride 107.0 (98-107) mmol/L Glucose 211 H (65-105) mg/dl Lactate 1.4 (0.7-2.1) mmol/L Vent Mode Prvc Mechanical Rate 16 FiO2 60.0 % Tidal Volume 470 PEEP 5 Potassium (3.6-5.2) mmol/L Carbon Dioxide (22-30) mmol/L Anion Gap (10-20) BUN (7-17) mg/dL Creatinine (0.7-1.2) mg/dL Est GFR ( Amer) Est GFR (Non-Af Amer) POC Glucose (mg/dL) (65-110) mg/dL Random Glucose (65-105) mg/dL Calcium (8.6-10.4) mg/dl Phosphorus (2.5-4.5) mg/dL Magnesium (1.6-2.3) mg/dL Total Bilirubin (0.2-1.3) mg/dL AST (14-36) U/L ALT (9-52) U/L Alkaline Phosphatase (38-126) U/L Total Protein (6.3-8.3) g/dL Albumin (3.5-5.0) g/dL Globulin (2.2-3.9) gm/dL Albumin/Globulin Ratio (1.0-2.1) Arterial Blood Potassium 3.9 (3.6-5.2) mmol/L Laboratory Results - last 24 hr 09/02/17 09/02/17 09/02/17 05:21 06:29 06:29 WBC 19.2 H RBC 4.28 Hgb 9.6 L Hct 31.4 L MCV 73.5 L MCH 22.6 L MCHC 30.7 L RDW 22.0 H Plt Count 314 MPV 7.9 Neut % (Auto) 89.9 H Lymph % (Auto) 2.7 L Isabela % (Auto) 7.3 Eos % (Auto) 0.0 Baso % (Auto) 0.1 Neut # (Auto) 17.3 H Lymph # (Auto) 0.5 L Isabela # (Auto) 1.4 H Eos # (Auto) 0.0 Baso # (Auto) 0.0 Neutrophils % (Manual) 91 H Lymphocytes % (Manual) 2 L Monocytes % (Manual) 7 Platelet Estimate Normal Hypochromasia (manual) Slight Poikilocytosis (manual Slight Anisocytosis (manual) Slight Microcytosis (manual) Slight Ovalocytes Slight D-Dimer, Quantitative Puncture Site Rr pCO2 52 H pO2 71 L HCO3 27.6 ABG pH 7.37 ABG Total CO2 31.7 H ABG O2 Saturation 96.0 ABG Base Excess 3.6 H Bill Test Pos ABG Potassium 3.9 A-a O2 Difference 292.0 Respiratory Index 4.1 Sodium 144.0 141 Chloride 107.0 103 Glucose 211 H Lactate 1.4 Vent Mode Prvc Mechanical Rate 16 FiO2 60.0 Tidal Volume 470 PEEP 5 Potassium 3.9 Carbon Dioxide 30 Anion Gap 12 BUN 32 H Creatinine 1.0 Est GFR ( Amer) > 60 Est GFR (Non-Af Amer) 54 POC Glucose (mg/dL) Random Glucose 197 H Calcium 7.9 L Phosphorus 3.8 Magnesium 2.2 Total Bilirubin 0.9 AST 71 H D ALT 85 H Alkaline Phosphatase 65 Total Protein 6.5 Albumin 3.3 L Globulin 3.2 Albumin/Globulin Ratio 1.0 Arterial Blood Potassium 3.9 09/02/17 09/02/17 13:01 13:10 WBC RBC Hgb Hct MCV MCH MCHC RDW Plt Count MPV Neut % (Auto) Lymph % (Auto) Isabela % (Auto) Eos % (Auto) Baso % (Auto) Neut # (Auto) Lymph # (Auto) Isabela # (Auto) Eos # (Auto) Baso # (Auto) Neutrophils % (Manual) Lymphocytes % (Manual) Monocytes % (Manual) Platelet Estimate Hypochromasia (manual) Poikilocytosis (manual Anisocytosis (manual) Microcytosis (manual) Ovalocytes D-Dimer, Quantitative 2557 H Puncture Site pCO2 pO2 HCO3 ABG pH ABG Total CO2 ABG O2 Saturation ABG Base Excess Bill Test ABG Potassium A-a O2 Difference Respiratory Index Sodium Chloride Glucose Lactate Vent Mode Mechanical Rate FiO2 Tidal Volume PEEP Potassium Carbon Dioxide Anion Gap BUN Creatinine Est GFR ( Amer) Est GFR (Non-Af Amer) POC Glucose (mg/dL) 206 H Random Glucose Calcium Phosphorus Magnesium Total Bilirubin AST ALT Alkaline Phosphatase Total Protein Albumin Globulin Albumin/Globulin Ratio Arterial Blood Potassium EKG/Cardiology Studies: Cardiology / EKG Studies 09/02/17 10:30 EKG [ELECTROCARDIOGRAM] DAILY Comment: Mode Of Transportation: Reason For Exam: qtc 09/03/17 10:30 EKG [ELECTROCARDIOGRAM] DAILY Comment: Mode Of Transportation: Reason For Exam: qtc 09/04/17 10:30 EKG [ELECTROCARDIOGRAM] DAILY Comment: Mode Of Transportation: Reason For Exam: qtc 09/05/17 10:30 EKG [ELECTROCARDIOGRAM] DAILY Comment: Mode Of Transportation: Reason For Exam: qtc 09/06/17 10:30 EKG [ELECTROCARDIOGRAM] DAILY Comment: Mode Of Transportation: Reason For Exam: qtc Critical Care Progress Note - Nutrition Nutrition: Nutrition Category Date Time Status NPO Diet [DIET] Diets 09/01/17 Breakfast Active Assessment/Plan - Assessment and Plan (Free Text) Assessment: neuro: anxiety, neuropathy - Xanax 0.25mg PO PRN - Neurontin 300mg PO qhs - D/C Diprivan 1000mg qd for sedation in2b8 - Precedex 200 mcg cards: CHF - Cardizem 30mg PO x1 and add PRN - check QTc x5d - D/C nitroglycerin 50mg/250ml D5W 50mg IVPB qd - Crestor 10mg PO qhs - ASA 81mg - f/u echo pulm: AECOPD, PNA, emphysema, asthma - CPAP pressure controlled trial at 5 and 30 pressure support titrate to sats > 92%. - zithromax 500mg in NS @ 250ml/hr IVPB qd - Solu-Medrol 40mg IVP q8h - Duoneb 3mg/0.5mg (3ml) UD 3ml INH RQ4 - Zosyn 3.375g IV @ 100ml/hr IVPB q8h - Singulair 10mg PO qhs - f/u with trach c/s nephro: CKD - lasix 40 x1 - NaCl 0.9% @ 50ml/hr IV q20h PPx: - D-dimer f/u for DVT - LE dopplers - heparin 5000U sc q12 - protonix 40mg IVP qd <You Verduzco - Last Filed: 09/02/17 18:24> CCU Subjective - Physician Review Critical Care Time Spent (in minutes): 35 CCU Objective - Vital Signs / Intake & Output Vital Signs (Last 4 hours): Vital Signs Temp Pulse Resp BP Pulse Ox 09/02/17 16:00 98.4 F 09/02/17 15:01 119 H 25 H 115/84 97 09/02/17 15:00 119 H 26 H Intake and Output (Last 8hrs): Intake & Output 09/02/17 09/02/17 09/02/17 06:59 14:59 22:59 Intake Total 869.8 347.0 90 Output Total 410 0 Balance 459.8 347.0 90 Weight 142 lb 13.753 oz 142 lb 14.4 oz Intake: IV 175 64.2 20 Intake, IV Amount 524.8 57.8 Right Distal Port 124.8 7.8 Internal Jugular Right Proximal Port 400 50 Internal Jugular Tube Feeding 170 225 70 Output: Urine 410 0 Urethral (Rico) 410 0 Other: # Bowel Movements 0 - Medications Active Medications: Active Medications Generic Name Dose Route Start Last Admin Trade Name Freq PRN Reason Stop Dose Admin Albuterol/Ipratropium 3 ml 08/31/17 04:00 09/02/17 11:17 Duoneb 3 Mg/0.5 Mg (3 Ml) Ud INH Not Given RQ4 JENNIFER Aspirin 81 mg 09/02/17 10:30 09/02/17 11:13 Aspirin Chewable PO 81 mg DAILY JENNIFER Administration Diltiazem HCl 30 mg 09/02/17 18:15 Cardizem PO Q6H JENNIFER Heparin Sodium (Porcine) 5,000 units 09/02/17 22:00 Heparin SC Q12 JENNIFER Piperacillin Sod/Tazobactam Sod 3.375 gm in 50 mls @ 100 mls/hr 08/31/17 16: 45 09/02/17 17:14 Zosyn 3.375 Gm Iv Premix IVPB 100 mls/hr Q8H JENNIFER Administration Diltiazem HCl 125 mg/ Dextrose 125 mls @ 5 mls/hr 08/31/17 22:00 08/31/17 23: 30 IV 0 mg/hr .Q24H JENNIFER 0 mls/hr Protocol Titration 5 MG/HR Azithromycin 500 mg/ Sodium 250 mls @ 250 mls/hr 09/02/17 13:00 09/02/17 13: 17 Chloride IVPB 250 mls/hr Q24H JENNIFER Administration Dexmedetomidine HCl 200 mcg/ 50 mls @ 3.24 mls/hr 09/02/17 10:33 09/02/17 16: 00 Sodium Chloride IV 1.5 mcg/kg/hr TITR PRN 24.3 mls/hr Sedation Titration Protocol 0.2 MCG/KG/HR Propofol 1,000 mg in 100 mls @ 3.889 mls/hr 09/02/17 14:40 09/02/17 14:49 Diprivan IV 10 mcg/kg/min .Q24H PRN 3.889 mls/hr TITRATE PER MD ORDER Administration Protocol 10 MCG/KG/MIN Insulin Aspart 0 unit 09/02/17 18:15 Novolog SC Q6H JENNIFER Protocol Methylprednisolone 40 mg 08/31/17 00:45 09/02/17 16:50 Solu-Medrol IVP 40 mg Q8 JENNIFER Administration Montelukast Sodium 10 mg 08/31/17 22:00 09/01/17 21:36 Singulair PO 10 mg HS JENNIFER Administration Pantoprazole Sodium 40 mg 09/02/17 10:45 09/02/17 11:13 Protonix Inj IVP 40 mg DAILY JENNIFER Administration Potassium Chloride 20 meq 08/31/17 11:15 09/02/17 09:19 K-Dur 20 Meq Er Tab PO 20 meq DAILY JENNIFER Administration Rosuvastatin Calcium 10 mg 08/31/17 22:00 09/01/17 21:36 Crestor PO 10 mg HS JENNIFER Administration - Patient Studies Lab Studies: Microbiology Studies 08/31/17 22:15 MRSA Culture (Admit) - Final Nose 08/30/17 00:15 Blood Culture - Preliminary Blood NO GROWTH AFTER 48 HOURS 08/30/17 23:05 Blood Culture - Preliminary Blood NO GROWTH AFTER 48 HOURS 09/01/17 00:58 Gram Stain - Final Trachasp Lab Studies 09/02/17 09/02/17 09/02/17 Range/Units 18:00 13:10 13:01 WBC (4.8-10.8) K/uL RBC (3.80-5.20) Mil/uL Hgb (11.0-16.0) g/dL Hct (34.0-47.0) % MCV (81.0-99.0) fL MCH (27.0-31.0) pg MCHC (33.0-37.0) g/dL RDW (11.5-14.5) % Plt Count (130-400) K/uL MPV (7.2-11.7) fL Neut % (Auto) (50.0-75.0) % Lymph % (Auto) (20.0-40.0) % Isabela % (Auto) (0.0-10.0) % Eos % (Auto) (0.0-4.0) % Baso % (Auto) (0.0-2.0) % Neut # (Auto) (1.8-7.0) K/uL Lymph # (Auto) (1.0-4.3) K/uL Isabela # (Auto) (0.0-0.8) K/uL Eos # (Auto) (0.0-0.7) K/uL Baso # (Auto) (0.0-0.2) K/uL Neutrophils % (Manual) (50-75) % Lymphocytes % (Manual) (20-40) % Monocytes % (Manual) (0-10) % Platelet Estimate (NORMAL) Hypochromasia (manual) Poikilocytosis (manual Anisocytosis (manual) Microcytosis (manual) Ovalocytes D-Dimer, Quantitative 2557 H (0-243) ng/mlDDU Puncture Site pCO2 (35-45) mm/Hg pO2 (80-100) mm/Hg HCO3 (21-28) mmol/L ABG pH (7.35-7.45) ABG Total CO2 (22-28) mmol/L ABG O2 Saturation (95-98) % ABG Base Excess (-2.0-3.0) mmol/L Bill Test ABG Potassium (3.6-5.2) mmol/L A-a O2 Difference mm/Hg Respiratory Index Sodium (132-148) mmol/l Chloride (98-107) mmol/L Glucose (65-105) mg/dl Lactate (0.7-2.1) mmol/L Vent Mode Mechanical Rate FiO2 % Tidal Volume PEEP Potassium (3.6-5.2) mmol/L Carbon Dioxide (22-30) mmol/L Anion Gap (10-20) BUN (7-17) mg/dL Creatinine (0.7-1.2) mg/dL Est GFR ( Amer) Est GFR (Non-Af Amer) POC Glucose (mg/dL) 189 H 206 H (65-110) mg/dL Random Glucose (65-105) mg/dL Calcium (8.6-10.4) mg/dl Phosphorus (2.5-4.5) mg/dL Magnesium (1.6-2.3) mg/dL Total Bilirubin (0.2-1.3) mg/dL AST (14-36) U/L ALT (9-52) U/L Alkaline Phosphatase (38-126) U/L Total Protein (6.3-8.3) g/dL Albumin (3.5-5.0) g/dL Globulin (2.2-3.9) gm/dL Albumin/Globulin Ratio (1.0-2.1) Arterial Blood Potassium (3.6-5.2) mmol/L 09/02/17 09/02/17 09/02/17 Range/Units 06:29 06:29 05:21 WBC 19.2 H (4.8-10.8) K/uL RBC 4.28 (3.80-5.20) Mil/uL Hgb 9.6 L (11.0-16.0) g/dL Hct 31.4 L (34.0-47.0) % MCV 73.5 L (81.0-99.0) fL MCH 22.6 L (27.0-31.0) pg MCHC 30.7 L (33.0-37.0) g/dL RDW 22.0 H (11.5-14.5) % Plt Count 314 (130-400) K/uL MPV 7.9 (7.2-11.7) fL Neut % (Auto) 89.9 H (50.0-75.0) % Lymph % (Auto) 2.7 L (20.0-40.0) % Isabela % (Auto) 7.3 (0.0-10.0) % Eos % (Auto) 0.0 (0.0-4.0) % Baso % (Auto) 0.1 (0.0-2.0) % Neut # (Auto) 17.3 H (1.8-7.0) K/uL Lymph # (Auto) 0.5 L (1.0-4.3) K/uL Isabela # (Auto) 1.4 H (0.0-0.8) K/uL Eos # (Auto) 0.0 (0.0-0.7) K/uL Baso # (Auto) 0.0 (0.0-0.2) K/uL Neutrophils % (Manual) 91 H (50-75) % Lymphocytes % (Manual) 2 L (20-40) % Monocytes % (Manual) 7 (0-10) % Platelet Estimate Normal (NORMAL) Hypochromasia (manual) Slight Poikilocytosis (manual Slight Anisocytosis (manual) Slight Microcytosis (manual) Slight Ovalocytes Slight D-Dimer, Quantitative (0-243) ng/mlDDU Puncture Site Rr pCO2 52 H (35-45) mm/Hg pO2 71 L (80-100) mm/Hg HCO3 27.6 (21-28) mmol/L ABG pH 7.37 (7.35-7.45) ABG Total CO2 31.7 H (22-28) mmol/L ABG O2 Saturation 96.0 (95-98) % ABG Base Excess 3.6 H (-2.0-3.0) mmol/L Bill Test Pos ABG Potassium 3.9 (3.6-5.2) mmol/L A-a O2 Difference 292.0 mm/Hg Respiratory Index 4.1 Sodium 141 144.0 (132-148) mmol/l Chloride 103 107.0 (98-107) mmol/L Glucose 211 H (65-105) mg/dl Lactate 1.4 (0.7-2.1) mmol/L Vent Mode Prvc Mechanical Rate 16 FiO2 60.0 % Tidal Volume 470 PEEP 5 Potassium 3.9 (3.6-5.2) mmol/L Carbon Dioxide 30 (22-30) mmol/L Anion Gap 12 (10-20) BUN 32 H (7-17) mg/dL Creatinine 1.0 (0.7-1.2) mg/dL Est GFR ( Amer) > 60 Est GFR (Non-Af Amer) 54 POC Glucose (mg/dL) (65-110) mg/dL Random Glucose 197 H (65-105) mg/dL Calcium 7.9 L (8.6-10.4) mg/dl Phosphorus 3.8 (2.5-4.5) mg/dL Magnesium 2.2 (1.6-2.3) mg/dL Total Bilirubin 0.9 (0.2-1.3) mg/dL AST 71 H D (14-36) U/L ALT 85 H (9-52) U/L Alkaline Phosphatase 65 (38-126) U/L Total Protein 6.5 (6.3-8.3) g/dL Albumin 3.3 L (3.5-5.0) g/dL Globulin 3.2 (2.2-3.9) gm/dL Albumin/Globulin Ratio 1.0 (1.0-2.1) Arterial Blood Potassium 3.9 (3.6-5.2) mmol/L Laboratory Results - last 24 hr 09/02/17 09/02/17 09/02/17 05:21 06:29 06:29 WBC 19.2 H RBC 4.28 Hgb 9.6 L Hct 31.4 L MCV 73.5 L MCH 22.6 L MCHC 30.7 L RDW 22.0 H Plt Count 314 MPV 7.9 Neut % (Auto) 89.9 H Lymph % (Auto) 2.7 L Isabela % (Auto) 7.3 Eos % (Auto) 0.0 Baso % (Auto) 0.1 Neut # (Auto) 17.3 H Lymph # (Auto) 0.5 L Isabela # (Auto) 1.4 H Eos # (Auto) 0.0 Baso # (Auto) 0.0 Neutrophils % (Manual) 91 H Lymphocytes % (Manual) 2 L Monocytes % (Manual) 7 Platelet Estimate Normal Hypochromasia (manual) Slight Poikilocytosis (manual Slight Anisocytosis (manual) Slight Microcytosis (manual) Slight Ovalocytes Slight D-Dimer, Quantitative Puncture Site Rr pCO2 52 H pO2 71 L HCO3 27.6 ABG pH 7.37 ABG Total CO2 31.7 H ABG O2 Saturation 96.0 ABG Base Excess 3.6 H Bill Test Pos ABG Potassium 3.9 A-a O2 Difference 292.0 Respiratory Index 4.1 Sodium 144.0 141 Chloride 107.0 103 Glucose 211 H Lactate 1.4 Vent Mode Prvc Mechanical Rate 16 FiO2 60.0 Tidal Volume 470 PEEP 5 Potassium 3.9 Carbon Dioxide 30 Anion Gap 12 BUN 32 H Creatinine 1.0 Est GFR ( Amer) > 60 Est GFR (Non-Af Amer) 54 POC Glucose (mg/dL) Random Glucose 197 H Calcium 7.9 L Phosphorus 3.8 Magnesium 2.2 Total Bilirubin 0.9 AST 71 H D ALT 85 H Alkaline Phosphatase 65 Total Protein 6.5 Albumin 3.3 L Globulin 3.2 Albumin/Globulin Ratio 1.0 Arterial Blood Potassium 3.9 09/02/17 09/02/17 09/02/17 13:01 13:10 18:00 WBC RBC Hgb Hct MCV MCH MCHC RDW Plt Count MPV Neut % (Auto) Lymph % (Auto) Isabela % (Auto) Eos % (Auto) Baso % (Auto) Neut # (Auto) Lymph # (Auto) Isabela # (Auto) Eos # (Auto) Baso # (Auto) Neutrophils % (Manual) Lymphocytes % (Manual) Monocytes % (Manual) Platelet Estimate Hypochromasia (manual) Poikilocytosis (manual Anisocytosis (manual) Microcytosis (manual) Ovalocytes D-Dimer, Quantitative 2557 H Puncture Site pCO2 pO2 HCO3 ABG pH ABG Total CO2 ABG O2 Saturation ABG Base Excess Bill Test ABG Potassium A-a O2 Difference Respiratory Index Sodium Chloride Glucose Lactate Vent Mode Mechanical Rate FiO2 Tidal Volume PEEP Potassium Carbon Dioxide Anion Gap BUN Creatinine Est GFR ( Amer) Est GFR (Non-Af Amer) POC Glucose (mg/dL) 206 H 189 H Random Glucose Calcium Phosphorus Magnesium Total Bilirubin AST ALT Alkaline Phosphatase Total Protein Albumin Globulin Albumin/Globulin Ratio Arterial Blood Potassium EKG/Cardiology Studies: Cardiology / EKG Studies 09/02/17 10:30 EKG [ELECTROCARDIOGRAM] DAILY Comment: Mode Of Transportation: Reason For Exam: qtc 09/03/17 10:30 EKG [ELECTROCARDIOGRAM] DAILY Comment: Mode Of Transportation: Reason For Exam: qtc 09/04/17 10:30 EKG [ELECTROCARDIOGRAM] DAILY Comment: Mode Of Transportation: Reason For Exam: qtc 09/05/17 10:30 EKG [ELECTROCARDIOGRAM] DAILY Comment: Mode Of Transportation: Reason For Exam: qtc 09/06/17 10:30 EKG [ELECTROCARDIOGRAM] DAILY Comment: Mode Of Transportation: Reason For Exam: qtc Critical Care Progress Note - Nutrition Nutrition: Nutrition Category Date Time Status NPO Diet [DIET] Diets 09/01/17 Breakfast Active Assessment/Plan - Assessment and Plan (Free Text) Plan: Patient seen and examined at bedside with ICU team. Patient intubated for COPD exacerbation. -Hypoxic and hypercapneic respiratory failure: switch from propofol to precedex ggt, continue bronchodilators, continue solumedrol -CXR reveals congestion: stop IVF and lasix 20 mg once -sepsis: little secretions from et tube, empirically on abx f/u cultures -tolerated NG tube feeds -Novalog q6hrs ISS -CPAP daily cc time spent 35 minutes - Date & Time Date: 09/02/17 Time: 18:24
[2017-09-02] MEDS ORDERED: (Novolin R) Insulin Human Regular 100 units/ml vial SC SCH (18:00)
[2017-09-02] MEDS: (Novolog) Insulin Aspart, Recombinant 100 u/ml 10 ml vial SC SCH (18:26)
--- NOTE | 2017-09-02 22:29 | CARD ---
APPROVED REPORT EXAM: Two-dimensional and M-mode echocardiogram with Doppler and color Doppler. Other Information Quality : [employer] : INDICATION Atrial Fibrillation 2D DIMENSIONS IVSd0.9 (0.7-1.1cm)LVDd5.3 (3.9-5.9cm) PWd0.9 (0.7-1.1cm)LVDs4.2 (2.5-4.0cm) FS (%) 19.5 %LVEF (%)39.7 (>50%) M-Mode DIMENSIONS Left Atrium (MM)3.63 (2.5-4.0cm)Aortic Root3.18 (2.2-3.7cm) Aortic Cusp Exc.2.04 (1.5-2.0cm) Mitral Valve MV E Vyjgibgl66.4cm/sE/A ratio0.0 TDI E/Lateral E'0.0E/Medial E'0.0 LEFT VENTRICLE The left ventricle is normal size. There is normal left ventricular wall thickness. The systolic function is moderately impaired. Significant regional wall motion abnormalities noted. ATRIA The left atrium size is normal. AORTIC VALVE The aortic valve is normal in structure. MITRAL VALVE Mitral regurgitation is trace to mild. TRICUSPID VALVE The tricuspid valve is normal in structure. <Conclusion> Moderate LV systolic dysfunction. Trace to mild MR. Normal chamber size. Wall motion abnormalities, suggestive of CAD.
[2017-09-03] MEDS: Albuterol-Ipratrop 3 mg / 0.5 (3 ml) UD INH SCH ×7 (00:14→23:43)
[2017-09-03] MEDS: (Novolog) Insulin Aspart, Recombinant 100 u/ml 10 ml vial SC SCH ×4 (00:26→18:36)
[2017-09-03] MEDS: Piperacill/Tazo 3.375gm in Dex 3.375 GM/50 ML BAG IVPB SCH ×3 (00:26→16:20)
[2017-09-03] MEDS: Propofol 10 mg/ml 1,000 MG/100 ML VIAL IV PRN ×3 (01:57→18:00)
[2017-09-03] MEDS: MethylPREDNISolone 40 mg Vial IVP SCH ×3 (05:59→21:34)
[2017-09-03 06:01] LABS: ABG ALLEN TEST POS; ARTERIAL BLOOD GAS HEMOGLOBIN 9.6 g/dL (11.7-17.4); ARTERIAL BLOOD GAS O2 SAT 97.3 % (95-98); ARTERIAL BLOOD GAS PCO2 47 mm/Hg (35-45); ARTERIAL BLOOD GAS PH 7.45 (7.35-7.45); ARTERIAL BLOOD GAS PO2 74 mm/Hg (80-100); ARTERIAL BLOOD GAS TCO2 34.1 mmol/L (22-28)
[2017-09-03 07:06] LABS: BASO % 0.1 % (0.0-2.0); LYMPH # 0.6 K/uL (1.0-4.3); LYMPH % 2.3 % (20.0-40.0); MEAN CELL VOLUME 74.4 fL (81.0-99.0); MEAN CORPUSCULAR HEMOGLOBIN 22.6 pg (27.0-31.0); MEAN CORPUSCULAR HGB CONC 30.3 g/dL (33.0-37.0); MEAN PLATELET VOLUME 8.3 fL (7.2-11.7); MONO # 1.4 K/uL (0.0-0.8); MONO % 5.7 % (0.0-10.0); NEUT # 22.8 K/uL (1.8-7.0); NEUT % 91.9 % (50.0-75.0); NRBC % 0.3 % (0.0-2.0); PLATELET COUNT 302 K/uL (130-400); RBC 4.43 Mil/uL (3.80-5.20); WHITE BLOOD COUNT 24.8 K/uL (4.8-10.8)
[2017-09-03 07:07] LABS: ALBUMIN 3.4 g/dL (3.5-5.0); ALT/SGPT 101 U/L (9-52); AST/SGOT 74 U/L (14-36); BLOOD UREA NITROGEN 38 mg/dL (7-17); CALCIUM 8.2 mg/dl (8.6-10.4); GFR AFRICAN-AMERICAN > 60; GFR NON-AFRICAN AMERICAN > 60; MAGNESIUM 2.6 mg/dL (1.6-2.3)
[2017-09-03 09:44] LABS: LYMPHOCYTE 3 % (20-40); MONOCYTE 6 % (0-10); NEUTROPHIL 91 % (50-75); TOTAL CELLS COUNTED 100
[2017-09-03 09:45] LABS: ANISOCYTOSIS MODERATE; PLATELET ESTIMATE NORMAL (NORMAL)
[2017-09-03 09:46] LABS: HYPOCHROMIC SLIGHT; MICROCYTOSIS SLIGHT; OVALOCYTES SLIGHT; POIKILOCYTOSIS SLIGHT; TOXIC GRANULATION PRESENT
[2017-09-03 09:47] LABS: BURR CELLS SLIGHT; LARGE PLATELETS PRESENT
--- NOTE | 2017-09-03 09:51 | RAD ---
HISTORY: intubated COMPARISON: Multiple prior chest x-rays, the most recent performed 09/02/17 TECHNIQUE: Chest, one view. FINDINGS: Right IJ approach central venous catheter, endotracheal tube, and nasogastric tube re-identified. Numerous external wires and leads obscure evaluation of the underlying parenchyma. LUNGS: Mild to moderate pulmonary venous congestion. Multifocal pulmonary opacities may reflect infiltrate. Small left pleural effusion. No definite pneumothorax. 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 Cardiomegaly. Atherosclerotic calcifications of the aortic knob. OSSEOUS STRUCTURES: Osseous demineralization. Degenerative changes. VISUALIZED UPPER ABDOMEN: Unremarkable. OTHER FINDINGS: Left axillary clips. IMPRESSION: Right IJ approach central venous catheter, endotracheal tube, and nasogastric tube re-identified. Mild to moderate pulmonary venous congestion. Multifocal pulmonary opacities may reflect infiltrate. Small left pleural effusion.
[2017-09-03] MEDS: Potassium Chloride 20 mEq ER Tab PO SCH (10:00)
--- NOTE | 2017-09-03 10:43 | CP.CCUPN ---
CCU Subjective - Physician Review Subjective (Free Text): Patient seen and examined at bedside. Patient's Oxygenation low requiring higher Fio2 reqiurement. d/w daughter at bedside who noted that her daughter noticed patient becoming agitated and tachycardic yesterday evening at 10PM. d/ w nursing to continue diltiazem and precedex. echo ordered 09/03/17 10:39 CCU Objective - Vital Signs / Intake & Output Vital Signs (Last 4 hours): Vital Signs Temp Pulse Resp BP Pulse Ox 09/03/17 09:00 133 H 26 H 92 L 09/03/17 08:00 97.8 F 135 H 27 H 125/71 92 L 09/03/17 07:00 135 H 24 91 L Intake and Output (Last 8hrs): Intake & Output 09/02/17 09/03/17 09/03/17 22:59 06:59 14:59 Intake Total 917.2 675.0 245.4 Output Total 1100 1600 120 Balance -182.8 -925.0 125.4 Intake: IV 80.8 148 7 Intake, IV Amount 496.4 167.0 23.4 Left Distal Port Forearm 32.4 Right Distal Port 64.0 117.0 23.4 Internal Jugular Right Proximal Port 400 50 Internal Jugular Tube Feeding 280 300 135 Other 60 60 80 Output: Urine 1100 1600 120 Urethral (Rico) 1100 1600 120 Other: # Bowel Movements 1 0 1 - Medications Active Medications: Active Medications Generic Name Dose Route Start Last Admin Trade Name Freq PRN Reason Stop Dose Admin Albuterol/Ipratropium 3 ml 08/31/17 04:00 09/03/17 07:17 Duoneb 3 Mg/0.5 Mg (3 Ml) Ud INH Not Given RQ4 JENNIFER Aspirin 81 mg 09/02/17 10:30 09/02/17 11:13 Aspirin Chewable PO 81 mg DAILY JENNIFER Administration Diltiazem HCl 30 mg 09/02/17 18:15 09/03/17 05:59 Cardizem PO 30 mg Q6H JENNIFER Administration Heparin Sodium (Porcine) 5,000 units 09/02/17 22:00 09/02/17 21:28 Heparin SC 5,000 units Q12 JENNIFER Administration Piperacillin Sod/Tazobactam Sod 3.375 gm in 50 mls @ 100 mls/hr 08/31/17 16: 45 09/03/17 09:05 Zosyn 3.375 Gm Iv Premix IVPB 100 mls/hr Q8H JENNIFER Administration Diltiazem HCl 125 mg/ Dextrose 125 mls @ 5 mls/hr 08/31/17 22:00 08/31/17 23: 30 IV 0 mg/hr .Q24H JENNIFER 0 mls/hr Protocol Titration 5 MG/HR Azithromycin 500 mg/ Sodium 250 mls @ 250 mls/hr 09/02/17 13:00 09/02/17 13: 17 Chloride IVPB 250 mls/hr Q24H JENNIFER Administration Dexmedetomidine HCl 200 mcg/ 50 mls @ 3.24 mls/hr 09/02/17 10:33 09/02/17 17: 00 Sodium Chloride IV 0 mcg/kg/hr TITR PRN 0 mls/hr Sedation Titration Protocol 0.2 MCG/KG/HR Propofol 1,000 mg in 100 mls @ 3.889 mls/hr 09/02/17 14:40 09/03/17 08:00 Diprivan IV 20 mcg/kg/min .Q24H PRN 7.778 mls/hr TITRATE PER MD ORDER Administration Protocol 10 MCG/KG/MIN Diltiazem HCl 125 mg/ Sodium 125 mls @ 5 mls/hr 09/03/17 10:45 Chloride IV .Q24H JENNIFER Protocol 5 MG/HR Insulin Aspart 0 unit 09/02/17 18:15 09/03/17 05:59 Novolog SC 2 unit Q6H JENNIFER Administration Protocol Methylprednisolone 40 mg 08/31/17 00:45 09/03/17 05:59 Solu-Medrol IVP 40 mg Q8 JENNIFER Administration Montelukast Sodium 10 mg 08/31/17 22:00 09/02/17 21:29 Singulair PO 10 mg HS JENNIFER Administration Pantoprazole Sodium 40 mg 09/02/17 10:45 09/02/17 11:13 Protonix Inj IVP 40 mg DAILY JENNIFER Administration Potassium Chloride 20 meq 08/31/17 11:15 09/02/17 09:19 K-Dur 20 Meq Er Tab PO 20 meq DAILY JENNIFER Administration - Patient Studies Lab Studies: Microbiology Studies 08/30/17 00:15 Blood Culture - Preliminary Blood NO GROWTH AFTER 3 DAYS 08/30/17 23:05 Blood Culture - Preliminary Blood NO GROWTH AFTER 3 DAYS 08/31/17 22:15 MRSA Culture (Admit) - Final Nose Lab Studies 09/03/17 09/03/17 09/03/17 Range/Units 06:31 06:31 05:37 WBC 24.8 H (4.8-10.8) K/uL RBC 4.43 (3.80-5.20) Mil/uL Hgb 10.0 L (11.0-16.0) g/dL Hct 33.0 L (34.0-47.0) % MCV 74.4 L (81.0-99.0) fL MCH 22.6 L (27.0-31.0) pg MCHC 30.3 L (33.0-37.0) g/dL RDW 22.0 H (11.5-14.5) % Plt Count 302 (130-400) K/uL MPV 8.3 (7.2-11.7) fL Neut % (Auto) 91.9 H (50.0-75.0) % Lymph % (Auto) 2.3 L (20.0-40.0) % Armstrong % (Auto) 5.7 (0.0-10.0) % Eos % (Auto) 0.0 (0.0-4.0) % Baso % (Auto) 0.1 (0.0-2.0) % Neut # (Auto) 22.8 H (1.8-7.0) K/uL Lymph # (Auto) 0.6 L (1.0-4.3) K/uL Armstrong # (Auto) 1.4 H (0.0-0.8) K/uL Eos # (Auto) 0.0 (0.0-0.7) K/uL Baso # (Auto) 0.0 (0.0-0.2) K/uL Neutrophils % (Manual) 91 H (50-75) % Lymphocytes % (Manual) 3 L (20-40) % Monocytes % (Manual) 6 (0-10) % Toxic Granulation Present Platelet Estimate Normal (NORMAL) Large Platelets Present Hypochromasia (manual) Slight Poikilocytosis (manual Slight Anisocytosis (manual) Moderate Microcytosis (manual) Slight Ovalocytes Slight Coral Cells Slight D-Dimer, Quantitative (0-243) ng/mlDDU Puncture Site pCO2 (35-45) mm/Hg pO2 (80-100) mm/Hg HCO3 (21-28) mmol/L ABG pH (7.35-7.45) ABG Total CO2 (22-28) mmol/L ABG O2 Saturation (95-98) % ABG Base Excess (-2.0-3.0) mmol/L ABG Hemoglobin (11.7-17.4) g/dL ABG Carboxyhemoglobin (0.5-1.5) % POC ABG HHb (Measured) (0.0-5.0) % ABG Methemoglobin (0.0-3.0) % Bill Test A-a O2 Difference mm/Hg Respiratory Index Hgb O2 Saturation (95.0-98.0) % Vent Mode Mechanical Rate FiO2 % Tidal Volume PEEP Sodium 147 (132-148) mmol/L Potassium 4.0 (3.6-5.2) mmol/L Chloride 104 (98-107) mmol/L Carbon Dioxide 33 H (22-30) mmol/L Anion Gap 14 (10-20) BUN 38 H (7-17) mg/dL Creatinine 0.8 (0.7-1.2) mg/dL Est GFR ( Amer) > 60 Est GFR (Non-Af Amer) > 60 POC Glucose (mg/dL) 202 H (65-110) mg/dL Random Glucose 193 H (65-105) mg/dL Calcium 8.2 L (8.6-10.4) mg/dl Phosphorus 2.9 (2.5-4.5) mg/dL Magnesium 2.6 H (1.6-2.3) mg/dL Total Bilirubin 0.5 (0.2-1.3) mg/dL AST 74 H (14-36) U/L ALT 101 H (9-52) U/L Alkaline Phosphatase 90 (38-126) U/L Total Protein 6.8 (6.3-8.3) g/dL Albumin 3.4 L (3.5-5.0) g/dL Globulin 3.4 (2.2-3.9) gm/dL Albumin/Globulin Ratio 1.0 (1.0-2.1) 09/03/17 09/03/17 09/02/17 Range/Units 04:56 00:02 18:00 WBC (4.8-10.8) K/uL RBC (3.80-5.20) Mil/uL Hgb (11.0-16.0) g/dL Hct (34.0-47.0) % MCV (81.0-99.0) fL MCH (27.0-31.0) pg MCHC (33.0-37.0) g/dL RDW (11.5-14.5) % Plt Count (130-400) K/uL MPV (7.2-11.7) fL Neut % (Auto) (50.0-75.0) % Lymph % (Auto) (20.0-40.0) % Armstrong % (Auto) (0.0-10.0) % Eos % (Auto) (0.0-4.0) % Baso % (Auto) (0.0-2.0) % Neut # (Auto) (1.8-7.0) K/uL Lymph # (Auto) (1.0-4.3) K/uL Armstrong # (Auto) (0.0-0.8) K/uL Eos # (Auto) (0.0-0.7) K/uL Baso # (Auto) (0.0-0.2) K/uL Neutrophils % (Manual) (50-75) % Lymphocytes % (Manual) (20-40) % Monocytes % (Manual) (0-10) % Toxic Granulation Platelet Estimate (NORMAL) Large Platelets Hypochromasia (manual) Poikilocytosis (manual Anisocytosis (manual) Microcytosis (manual) Ovalocytes Coral Cells D-Dimer, Quantitative (0-243) ng/mlDDU Puncture Site Rr pCO2 47 H (35-45) mm/Hg pO2 74 L (80-100) mm/Hg HCO3 31.0 H (21-28) mmol/L ABG pH 7.45 (7.35-7.45) ABG Total CO2 34.1 H (22-28) mmol/L ABG O2 Saturation 97.3 (95-98) % ABG Base Excess 7.8 H (-2.0-3.0) mmol/L ABG Hemoglobin 9.6 L (11.7-17.4) g/dL ABG Carboxyhemoglobin 2.0 H (0.5-1.5) % POC ABG HHb (Measured) 2.6 (0.0-5.0) % ABG Methemoglobin 1.3 (0.0-3.0) % Bill Test Pos A-a O2 Difference 224.0 mm/Hg Respiratory Index 3.0 Hgb O2 Saturation 94.0 L (95.0-98.0) % Vent Mode Prvc Mechanical Rate 16 FiO2 50.0 % Tidal Volume 450 PEEP 5 Sodium (132-148) mmol/L Potassium (3.6-5.2) mmol/L Chloride (98-107) mmol/L Carbon Dioxide (22-30) mmol/L Anion Gap (10-20) BUN (7-17) mg/dL Creatinine (0.7-1.2) mg/dL Est GFR ( Amer) Est GFR (Non-Af Amer) POC Glucose (mg/dL) 223 H 189 H (65-110) mg/dL Random Glucose (65-105) mg/dL Calcium (8.6-10.4) mg/dl Phosphorus (2.5-4.5) mg/dL Magnesium (1.6-2.3) mg/dL Total Bilirubin (0.2-1.3) mg/dL AST (14-36) U/L ALT (9-52) U/L Alkaline Phosphatase (38-126) U/L Total Protein (6.3-8.3) g/dL Albumin (3.5-5.0) g/dL Globulin (2.2-3.9) gm/dL Albumin/Globulin Ratio (1.0-2.1) 09/02/17 09/02/17 Range/Units 13:10 13:01 WBC (4.8-10.8) K/uL RBC (3.80-5.20) Mil/uL Hgb (11.0-16.0) g/dL Hct (34.0-47.0) % MCV (81.0-99.0) fL MCH (27.0-31.0) pg MCHC (33.0-37.0) g/dL RDW (11.5-14.5) % Plt Count (130-400) K/uL MPV (7.2-11.7) fL Neut % (Auto) (50.0-75.0) % Lymph % (Auto) (20.0-40.0) % Armstrong % (Auto) (0.0-10.0) % Eos % (Auto) (0.0-4.0) % Baso % (Auto) (0.0-2.0) % Neut # (Auto) (1.8-7.0) K/uL Lymph # (Auto) (1.0-4.3) K/uL Armstrong # (Auto) (0.0-0.8) K/uL Eos # (Auto) (0.0-0.7) K/uL Baso # (Auto) (0.0-0.2) K/uL Neutrophils % (Manual) (50-75) % Lymphocytes % (Manual) (20-40) % Monocytes % (Manual) (0-10) % Toxic Granulation Platelet Estimate (NORMAL) Large Platelets Hypochromasia (manual) Poikilocytosis (manual Anisocytosis (manual) Microcytosis (manual) Ovalocytes Coral Cells D-Dimer, Quantitative 2557 H (0-243) ng/mlDDU Puncture Site pCO2 (35-45) mm/Hg pO2 (80-100) mm/Hg HCO3 (21-28) mmol/L ABG pH (7.35-7.45) ABG Total CO2 (22-28) mmol/L ABG O2 Saturation (95-98) % ABG Base Excess (-2.0-3.0) mmol/L ABG Hemoglobin (11.7-17.4) g/dL ABG Carboxyhemoglobin (0.5-1.5) % POC ABG HHb (Measured) (0.0-5.0) % ABG Methemoglobin (0.0-3.0) % Bill Test A-a O2 Difference mm/Hg Respiratory Index Hgb O2 Saturation (95.0-98.0) % Vent Mode Mechanical Rate FiO2 % Tidal Volume PEEP Sodium (132-148) mmol/L Potassium (3.6-5.2) mmol/L Chloride (98-107) mmol/L Carbon Dioxide (22-30) mmol/L Anion Gap (10-20) BUN (7-17) mg/dL Creatinine (0.7-1.2) mg/dL Est GFR ( Amer) Est GFR (Non-Af Amer) POC Glucose (mg/dL) 206 H (65-110) mg/dL Random Glucose (65-105) mg/dL Calcium (8.6-10.4) mg/dl Phosphorus (2.5-4.5) mg/dL Magnesium (1.6-2.3) mg/dL Total Bilirubin (0.2-1.3) mg/dL AST (14-36) U/L ALT (9-52) U/L Alkaline Phosphatase (38-126) U/L Total Protein (6.3-8.3) g/dL Albumin (3.5-5.0) g/dL Globulin (2.2-3.9) gm/dL Albumin/Globulin Ratio (1.0-2.1) Laboratory Results - last 24 hr 09/02/17 09/02/17 09/02/17 13:01 13:10 18:00 WBC RBC Hgb Hct MCV MCH MCHC RDW Plt Count MPV Neut % (Auto) Lymph % (Auto) Armstrong % (Auto) Eos % (Auto) Baso % (Auto) Neut # (Auto) Lymph # (Auto) Armstrong # (Auto) Eos # (Auto) Baso # (Auto) Neutrophils % (Manual) Lymphocytes % (Manual) Monocytes % (Manual) Toxic Granulation Platelet Estimate Large Platelets Hypochromasia (manual) Poikilocytosis (manual Anisocytosis (manual) Microcytosis (manual) Ovalocytes Roseanne Cells D-Dimer, Quantitative 2557 H Puncture Site pCO2 pO2 HCO3 ABG pH ABG Total CO2 ABG O2 Saturation ABG Base Excess ABG Hemoglobin ABG Carboxyhemoglobin POC ABG HHb (Measured) ABG Methemoglobin Bill Test A-a O2 Difference Respiratory Index Hgb O2 Saturation Vent Mode Mechanical Rate FiO2 Tidal Volume PEEP Sodium Potassium Chloride Carbon Dioxide Anion Gap BUN Creatinine Est GFR ( Amer) Est GFR (Non-Af Amer) POC Glucose (mg/dL) 206 H 189 H Random Glucose Calcium Phosphorus Magnesium Total Bilirubin AST ALT Alkaline Phosphatase Total Protein Albumin Globulin Albumin/Globulin Ratio 09/03/17 09/03/17 09/03/17 00:02 04:56 05:37 WBC RBC Hgb Hct MCV MCH MCHC RDW Plt Count MPV Neut % (Auto) Lymph % (Auto) Armstrong % (Auto) Eos % (Auto) Baso % (Auto) Neut # (Auto) Lymph # (Auto) Armstrong # (Auto) Eos # (Auto) Baso # (Auto) Neutrophils % (Manual) Lymphocytes % (Manual) Monocytes % (Manual) Toxic Granulation Platelet Estimate Large Platelets Hypochromasia (manual) Poikilocytosis (manual Anisocytosis (manual) Microcytosis (manual) Ovalocytes Coral Cells D-Dimer, Quantitative Puncture Site Rr pCO2 47 H pO2 74 L HCO3 31.0 H ABG pH 7.45 ABG Total CO2 34.1 H ABG O2 Saturation 97.3 ABG Base Excess 7.8 H ABG Hemoglobin 9.6 L ABG Carboxyhemoglobin 2.0 H POC ABG HHb (Measured) 2.6 ABG Methemoglobin 1.3 Bill Test Pos A-a O2 Difference 224.0 Respiratory Index 3.0 Hgb O2 Saturation 94.0 L Vent Mode Prvc Mechanical Rate 16 FiO2 50.0 Tidal Volume 450 PEEP 5 Sodium Potassium Chloride Carbon Dioxide Anion Gap BUN Creatinine Est GFR ( Amer) Est GFR (Non-Af Amer) POC Glucose (mg/dL) 223 H 202 H Random Glucose Calcium Phosphorus Magnesium Total Bilirubin AST ALT Alkaline Phosphatase Total Protein Albumin Globulin Albumin/Globulin Ratio 09/03/17 09/03/17 06:31 06:31 WBC 24.8 H RBC 4.43 Hgb 10.0 L Hct 33.0 L MCV 74.4 L MCH 22.6 L MCHC 30.3 L RDW 22.0 H Plt Count 302 MPV 8.3 Neut % (Auto) 91.9 H Lymph % (Auto) 2.3 L Armstrong % (Auto) 5.7 Eos % (Auto) 0.0 Baso % (Auto) 0.1 Neut # (Auto) 22.8 H Lymph # (Auto) 0.6 L Armstrong # (Auto) 1.4 H Eos # (Auto) 0.0 Baso # (Auto) 0.0 Neutrophils % (Manual) 91 H Lymphocytes % (Manual) 3 L Monocytes % (Manual) 6 Toxic Granulation Present Platelet Estimate Normal Large Platelets Present Hypochromasia (manual) Slight Poikilocytosis (manual Slight Anisocytosis (manual) Moderate Microcytosis (manual) Slight Ovalocytes Slight Coral Cells Slight D-Dimer, Quantitative Puncture Site pCO2 pO2 HCO3 ABG pH ABG Total CO2 ABG O2 Saturation ABG Base Excess ABG Hemoglobin ABG Carboxyhemoglobin POC ABG HHb (Measured) ABG Methemoglobin Bill Test A-a O2 Difference Respiratory Index Hgb O2 Saturation Vent Mode Mechanical Rate FiO2 Tidal Volume PEEP Sodium 147 Potassium 4.0 Chloride 104 Carbon Dioxide 33 H Anion Gap 14 BUN 38 H Creatinine 0.8 Est GFR ( Amer) > 60 Est GFR (Non-Af Amer) > 60 POC Glucose (mg/dL) Random Glucose 193 H Calcium 8.2 L Phosphorus 2.9 Magnesium 2.6 H Total Bilirubin 0.5 AST 74 H ALT 101 H Alkaline Phosphatase 90 Total Protein 6.8 Albumin 3.4 L Globulin 3.4 Albumin/Globulin Ratio 1.0 EKG/Cardiology Studies: Cardiology / EKG Studies 09/02/17 10:30 EKG [ELECTROCARDIOGRAM] DAILY Comment: Mode Of Transportation: Reason For Exam: qtc 09/03/17 10:30 EKG [ELECTROCARDIOGRAM] DAILY Comment: Mode Of Transportation: Reason For Exam: qtc 09/04/17 10:30 EKG [ELECTROCARDIOGRAM] DAILY Comment: Mode Of Transportation: Reason For Exam: qtc 09/05/17 10:30 EKG [ELECTROCARDIOGRAM] DAILY Comment: Mode Of Transportation: Reason For Exam: qtc 09/06/17 10:30 EKG [ELECTROCARDIOGRAM] DAILY Comment: Mode Of Transportation: Reason For Exam: qtc Fingerstick Blood Sugar Results: 189 Critical Care Progress Note - Nutrition Nutrition: Nutrition Category Date Time Status NPO Diet [DIET] Diets 09/01/17 Breakfast Active Assessment/Plan - Assessment and Plan (Free Text) Plan: neuro: anxiety, neuropathy: continue precedex, daughter requested that patient be placed on propofol for more sedation, daughter informed of the risks of propofol including decreased respiratory drive -cards: likely diastolice/systolic heart failure with CAD:continue ggt and continue oral loading with Cardizemm check echo, bnp - continue Crestor 10mg PO qhs, ASA 81mg, cardizem for rate control, acei if Bp allows, lasix 20 mg today, EKG pending -echo pending, BNP not available pulm: COPD severe:CXR reveals more congestion, suspect systolic/diastolic heart failure - did NOT tolerate CPAP, continue current abx, f/u cultures -LE duplex report not available -d-dimer high, pre-test probability moderate, check echo -tolerating NG tube feeds -contineu DVT/PUD ppx I had a discussion with daughter regarding patient's clinical status. advised nursing to place cardizem ggt and precedex ggt (attempt to use least amount of propofol). Compared to yesterday, increased secretions, suspect aspiration; will send for cultures cc time 45 minutes - Date & Time Date: 09/03/17 Time: 10:50
[2017-09-03] MEDS: Dexmedetomidine Hydrochloride 200 MCG in Sodium Chloride 0.9% 48 ML IV PRN ×2 (12:12→21:30)
--- NOTE | 2017-09-03 12:30 | CARD ---
APPROVED REPORT EKG Measurement Heart [id number] 186P [id number] <Conclusion> Sinus tachycardia Septal infarct, age undetermined Prolonged QT Abnormal ECG
--- NOTE | 2017-09-03 14:57 | CP.PCM.PN ---
Subjective - Date & Time of Evaluation Date of Evaluation: 09/03/17 Time of Evaluation: 14:54 - Subjective Subjective: pt still on ventilator hr was rapid gottreatment now imprved had good bowel movements but diarhea Objective - Vital Signs/Intake and Output Vital Signs (last 24 hours): Temp Pulse Resp BP Pulse Ox 97.8 F 133 H 26 H 126/78 92 L 09/03/17 08:00 09/03/17 09:00 09/03/17 09:00 09/03/17 11:20 09/03/17 09:00 Intake and Output: 09/03/17 09/03/17 06:59 18:59 Intake Total 953.2 300.6 Output Total 1600 120 Balance -646.8 180.6 - Medications Medications: Current Medications Albuterol/Ipratropium (Duoneb 3 Mg/0.5 Mg (3 Ml) Ud) 3 ml INH RQ4 JENNIFER Last Admin: 09/03/17 11:11 Dose: Not Given Aspirin (Aspirin Chewable) 81 mg PO DAILY JENNIFER Last Admin: 09/03/17 10:00 Dose: 81 mg Diltiazem HCl (Cardizem) 60 mg PO Q6H JENNIFER Heparin Sodium (Porcine) (Heparin) 5,000 units SC Q12 JENNIFER Last Admin: 09/02/17 21:28 Dose: 5,000 units Piperacillin Sod/Tazobactam Sod (Zosyn 3.375 Gm Iv Premix) 3.375 gm in 50 mls @ 100 mls/hr IVPB Q8H JENNIFER Last Admin: 09/03/17 09:05 Dose: 100 mls/hr Diltiazem HCl 125 mg/ Dextrose 125 mls @ 5 mls/hr IV .Q24H JENNIFER; 5 MG/HR PRN Reason: Protocol Last Titration: 08/31/17 23:30 Dose: 0 mg/hr, 0 mls/hr Dexmedetomidine HCl 200 mcg/ (Sodium Chloride) 50 mls @ 3.24 mls/hr IV TITR PRN ; Protocol; 0.2 MCG/KG/HR PRN Reason: Sedation Last Admin: 09/03/17 12:12 Dose: 1 mcg/kg/hr, 16.2 mls/hr Propofol (Diprivan) 1,000 mg in 100 mls @ 3.889 mls/hr IV .Q24H PRN; Protocol; 10 MCG/KG/MIN PRN Reason: TITRATE PER MD ORDER Last Titration: 09/03/17 11:00 Dose: 20 mcg/kg/min, 7.778 mls/hr Diltiazem HCl 125 mg/ Sodium (Chloride) 125 mls @ 5 mls/hr IV .Q24H EJNNIFER; 5 MG/ HR PRN Reason: Protocol Last Admin: 09/03/17 11:00 Dose: 5 mg/hr, 5 mls/hr Doxycycline Hyclate 100 mg/ (Sodium Chloride) 100 mls @ 100 mls/hr IVPB Q12H JENNIFER Insulin Aspart (Novolog) 0 unit SC Q6H JENNIFER PRN Reason: Protocol Last Admin: 09/03/17 05:59 Dose: 2 unit Methylprednisolone (Solu-Medrol) 40 mg IVP Q8 JENNIFER Last Admin: 09/03/17 05:59 Dose: 40 mg Montelukast Sodium (Singulair) 10 mg PO HS JENNIFER Last Admin: 09/02/17 21:29 Dose: 10 mg Pantoprazole Sodium (Protonix Inj) 40 mg IVP DAILY [facility] Last Admin: 09/03/17 10:00 Dose: 40 mg Potassium Chloride (K-Dur 20 Meq Er Tab) 20 meq PO DAILY JENNIFER Last Admin: 09/03/17 10:00 Dose: 20 meq - Labs Labs: 09/03/17 06:31 09/03/17 06:31 PT 12.6 SECONDS (9.7-12.2) H 08/30/17 23:18 INR 1.1 08/30/17 23:18 APTT 28 SECONDS (21-34) 08/30/17 23:18 - Constitutional Appears: In Acute Distress - Head Exam Head Exam: ATRAUMATIC - Eye Exam Eye Exam: Normal appearance - ENT Exam ENT Exam: Normal Exam - Neck Exam Neck Exam: Normal Inspection - Respiratory Exam Respiratory Exam: Decreased Breath Sounds Additional comments: on ventilator - Cardiovascular Exam Cardiovascular Exam: Tachycardia - GI/Abdominal Exam GI & Abdominal Exam: Normal Bowel Sounds - Rectal Exam Rectal Exam: NORMAL INSPECTION - Extremities Exam Extremities Exam: Normal Inspection - Skin Skin Exam: Pallor Assessment and Plan - Assessment and Plan (Free Text) Assessment: ac resp failuir pumonia ex of copd tachyarrythmia ac diarhea Plan: well send stool culture and c def
[2017-09-03 16:29] LABS: ARTERIAL BLOOD GAS HCO3 34.9 mmol/L (21-28); ARTERIAL BLOOD GAS O2 SAT 97.4 % (95-98); ARTERIAL BLOOD GAS PCO2 43 mm/Hg (35-45); ARTERIAL BLOOD GAS PH 7.54 (7.35-7.45); ARTERIAL BLOOD GAS PO2 71 mm/Hg (80-100); ARTERIAL BLOOD GAS TCO2 38.1 mmol/L (22-28)
[2017-09-03 23:37] LABS: SQUAMOUS EPITHIAL < 1 /hpf (0-5); URINE BACTERIA RARE (<OCC); URINE BILIRUBIN NEGATIVE (NEGATIVE); URINE BLOOD 1+ (NEGATIVE); URINE CLARITY Hazy (Clear); URINE COLOR Yellow (YELLOW); URINE GLUCOSE (UA) NORMAL (Normal); URINE LEUKOCYTE ESTERASE NEG Leu/uL (Negative); URINE NITRATE NEGATIVE (NEGATIVE); URINE PROTEIN 2+ mg/dL (NEGATIVE); URINE URIC ACID CRYSTALS OCC /hpf (<OCC); URINE UROBILINOGEN NORMAL mg/dL (0.2-1.0)
[2017-09-03] MEDS: Acetaminophen 650mg/20.3ml solution UD PO PRN (23:42)
[2017-09-03 23:46] LABS: BLOOD UREA NITROGEN 46 mg/dL (7-17); CALCIUM 7.6 mg/dl (8.6-10.4); GFR AFRICAN-AMERICAN > 60; GFR NON-AFRICAN AMERICAN 54; MAGNESIUM 2.6 mg/dL (1.6-2.3)
[2017-09-04] MEDS: (Novolog) Insulin Aspart, Recombinant 100 u/ml 10 ml vial SC SCH ×4 (00:08→18:07)
[2017-09-04] MEDS: Piperacillin/Tazobact 3.375 GM in Sodium Chloride 0.9% 100 ML IVPB SCH ×4 (01:00→17:59)
[2017-09-04] MEDS: Dexmedetomidine Hydrochloride 200 MCG in Sodium Chloride 0.9% 48 ML IV PRN ×4 (01:05→20:24)
[2017-09-04] MEDS ORDERED: Potassium Phosphate 15 MMOLE in Sodium Chloride 0.9% 250 ML IVPB ONE (01:12)
[2017-09-04] MEDS: Albuterol-Ipratrop 3 mg / 0.5 (3 ml) UD INH SCH ×6 (03:03→23:29)
[2017-09-04 04:03] LABS: CK-MB < 0.22 ng/mL (0.0-3.38)
[2017-09-04 04:48] LABS: ARTERIAL BLOOD GAS HCO3 29.4 mmol/L (21-28); ARTERIAL BLOOD GAS PCO2 34 mm/Hg (35-45); ARTERIAL BLOOD GAS PH 7.53 (7.35-7.45); ARTERIAL BLOOD GAS PO2 64 mm/Hg (80-100); ARTERIAL BLOOD GAS TCO2 29.4 mmol/L (22-28)
[2017-09-04] MEDS: MethylPREDNISolone 40 mg Vial IVP SCH ×4 (05:51→23:55)
[2017-09-04] MEDS: Propofol 10 mg/ml 1,000 MG/100 ML VIAL IV PRN (06:00)
[2017-09-04 06:52] LABS: ALT/SGPT 100 U/L (9-52); AST/SGOT 55 U/L (14-36); BLOOD UREA NITROGEN 53 mg/dL (7-17); CALCIUM 7.6 mg/dl (8.6-10.4); GFR AFRICAN-AMERICAN > 60; GFR NON-AFRICAN AMERICAN 54; MAGNESIUM 2.7 mg/dL (1.6-2.3)
[2017-09-04 06:56] LABS: BASO % 0.1 % (0.0-2.0); LYMPH # 0.9 K/uL (1.0-4.3); LYMPH % 5.5 % (20.0-40.0); MEAN CELL VOLUME 74.7 fL (81.0-99.0); MEAN CORPUSCULAR HEMOGLOBIN 22.1 pg (27.0-31.0); MEAN CORPUSCULAR HGB CONC 29.5 g/dL (33.0-37.0); MEAN PLATELET VOLUME 8.7 fL (7.2-11.7); MONO % 6.2 % (0.0-10.0); NEUT # 13.8 K/uL (1.8-7.0); NEUT % 88.2 % (50.0-75.0); NRBC % 0.5 % (0.0-2.0); PLATELET COUNT 216 K/uL (130-400); RBC 4.09 Mil/uL (3.80-5.20); RED CELL DISTRIBUTION WIDTH 22.1 % (11.5-14.5); WHITE BLOOD COUNT 15.6 K/uL (4.8-10.8)
[2017-09-04 09:22] LABS: BANDS 1 % (0-2); LYMPHOCYTE 3 % (20-40); MONOCYTE 7 % (0-10); NEUTROPHIL 89 % (50-75); PLATELET ESTIMATE NORMAL (NORMAL); TOTAL CELLS COUNTED 100
[2017-09-04 09:23] LABS: ANISOCYTOSIS MODERATE; HYPOCHROMIC MODERATE; MICROCYTOSIS SLIGHT; OVALOCYTES SLIGHT; POIKILOCYTOSIS SLIGHT; POLYCHROMIC SLIGHT; SCHISTOCYTES SLIGHT
[2017-09-04 09:24] LABS: BURR CELLS SLIGHT; LARGE PLATELETS PRESENT
--- NOTE | 2017-09-04 10:15 | RAD ---
HISTORY: et tube COMPARISON: Chest x-ray performed 09/03/17 TECHNIQUE: Chest, one view. FINDINGS: Right IJ approach central venous catheter extends the SVC. Endotracheal tube terminates approximately 5.4 cm above the timothy which is not well visualized. Nasogastric tube extends expected location of the stomach. LUNGS: Mild pulmonary venous congestion. Mild left basilar atelectasis/ infiltrate. No definite pneumothorax. 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 Heart size appears borderline enlarged. Dense atherosclerotic calcifications of the aorta. OSSEOUS STRUCTURES: Osseous demineralization. Degenerative changes. Probable chondroid lesion, proximal right humerus. VISUALIZED UPPER ABDOMEN: Unremarkable. OTHER FINDINGS: Left axillary clips. IMPRESSION: Right IJ approach central venous catheter extends the SVC. Endotracheal tube terminates approximately 5.4 cm above the timothy which is not well visualized. Nasogastric tube extends expected location of the stomach. Mild pulmonary venous congestion. Mild left basilar atelectasis/ infiltrate. Additional findings as above.
--- NOTE | 2017-09-04 10:18 | RAD ---
HISTORY: r/o pneumonia COMPARISON: Chest x-ray performed 09/03/17 TECHNIQUE: Chest, one view. FINDINGS: Right IJ approach central venous catheter, endotracheal tube, nasogastric tube re- identified. LUNGS: Mild interstitial prominence may reflect infection or edema. No significant pleural effusion or definite pneumothorax. 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 Cardiomegaly. OSSEOUS STRUCTURES: Degenerative changes. Osseous demineralization. Probable chondroid lesion, proximal right humerus. VISUALIZED UPPER ABDOMEN: Unremarkable. OTHER FINDINGS: None. IMPRESSION: Right IJ approach central venous catheter, endotracheal tube, nasogastric tube. Mild interstitial prominence may reflect infection or edema.
[2017-09-04] MEDS: Acetaminophen 650mg/20.3ml solution UD PO PRN (13:04)
--- NOTE | 2017-09-04 13:07 | CP.PCM.PN ---
Subjective - Date & Time of Evaluation Date of Evaluation: 09/04/17 Time of Evaluation: 13:04 - Subjective Subjective: pt is awake today still has entubation vss lung rals and ronhi r side lung abd soft l l no oeadeama Objective - Vital Signs/Intake and Output Vital Signs (last 24 hours): Temp Pulse Resp BP Pulse Ox 98.0 F 76 16 109/62 98 09/04/17 08:00 09/04/17 10:01 09/04/17 10:01 09/04/17 10:01 09/04/17 10:01 Intake and Output: 09/04/17 09/04/17 06:59 18:59 Intake Total 1276.3 101.6 Output Total 450 210 Balance 826.3 -108.4 - Medications Medications: Current Medications Acetaminophen (Tylenol 650mg/20.3ml Solution Ud) 650 mg PO Q4 PRN PRN Reason: for temperature >101 F Last Admin: 09/03/17 23:42 Dose: 650 mg Albuterol/Ipratropium (Duoneb 3 Mg/0.5 Mg (3 Ml) Ud) 3 ml INH RQ4 JENNIFER Last Admin: 09/04/17 11:30 Dose: 3 ml Aspirin (Aspirin Chewable) 81 mg PO DAILY JENNIFER Last Admin: 09/04/17 09:39 Dose: 81 mg Diltiazem HCl (Cardizem) 60 mg PO Q6H JENNIFER Last Admin: 09/04/17 12:59 Dose: 60 mg Heparin Sodium (Porcine) (Heparin) 5,000 units SC Q12 JENNIFER Last Admin: 09/04/17 09:39 Dose: 5,000 units Diltiazem HCl 125 mg/ Dextrose 125 mls @ 5 mls/hr IV .Q24H JENNIFER; 5 MG/HR PRN Reason: Protocol Last Titration: 08/31/17 23:30 Dose: 0 mg/hr, 0 mls/hr Dexmedetomidine HCl 200 mcg/ (Sodium Chloride) 50 mls @ 3.24 mls/hr IV TITR PRN ; Protocol; 0.2 MCG/KG/HR PRN Reason: Sedation Last Admin: 09/04/17 07:30 Dose: 0.6 mcg/kg/hr, 9.72 mls/hr Propofol (Diprivan) 1,000 mg in 100 mls @ 3.889 mls/hr IV .Q24H PRN; Protocol; 10 MCG/KG/MIN PRN Reason: TITRATE PER MD ORDER Last Admin: 09/04/17 06:00 Dose: 10.02 mcg/kg/min, 3.9 mls/hr Diltiazem HCl 125 mg/ Sodium (Chloride) 125 mls @ 5 mls/hr IV .Q24H [facility]ENN[facility]ER; 5 MG/ HR PRN Reason: Protocol Last Admin: 09/04/17 01:25 Dose: 5 mg/hr, 5 mls/hr Doxycycline Hyclate 100 mg/ (Sodium Chloride) 100 mls @ 100 mls/hr IVPB Q12H [facility] Last Admin: 09/04/17 13:00 Dose: 100 mls/hr Piperacillin Sod/Tazobactam (Sod 3.375 gm/ Sodium Chloride) 100 mls @ 200 mls/ hr IVPB Q6H [facility] Last Admin: 09/04/17 13:01 Dose: 200 mls/hr Insulin Aspart (Novolog) 0 unit SC Q6H [facility]ENN[facility] PRN Reason: Protocol Last Admin: 09/04/17 13:00 Dose: 2 unit Methylprednisolone (Solu-Medrol) 40 mg IVP Q6H [facility] Last Admin: 09/04/17 13:00 Dose: 40 mg Montelukast Sodium (Singulair) 10 mg PO HS [facility] Last Admin: 09/03/17 21:35 Dose: 10 mg Pantoprazole Sodium (Protonix Inj) 40 mg IVP DAILY [facility] Last Admin: 09/04/17 09:39 Dose: 40 mg - Labs Labs: 09/04/17 06:23 09/04/17 06:23 PT 12.6 SECONDS (9.7-12.2) H 08/30/17 23:18 INR 1.1 08/30/17 23:18 APTT 28 SECONDS (21-34) 08/30/17 23:18 - Constitutional Appears: Non-toxic - Head Exam Head Exam: NORMAL INSPECTION - Eye Exam Eye Exam: Normal appearance - ENT Exam ENT Exam: Mucous Membranes Moist - Respiratory Exam Respiratory Exam: Rales, Rhonchi - Cardiovascular Exam Cardiovascular Exam: REGULAR RHYTHM - GI/Abdominal Exam GI & Abdominal Exam: Normal Bowel Sounds - Extremities Exam Extremities Exam: Normal Capillary Refill - Back Exam Back Exam: NORMAL INSPECTION - Psychiatric Exam Psychiatric exam: Normal Affect - Skin Skin Exam: Pallor Assessment and Plan - Assessment and Plan (Free Text) Assessment: s/p resp fialiur on ventilator ac pnumonia ac tacharrythmia Plan: cont as per icu orders
[2017-09-04] MEDS: Potassium Chloride 20 mEq ER Tab PO SCH (15:14)
--- NOTE | 2017-09-04 15:59 | CP.CCUPN ---
CCU Subjective - Physician Review Subjective (Free Text): Patient seen and examined at bedside. FiO2 improving to 40%, tolerating CPAP, tolerating tube feeds HR controlled Critical Care Time Spent (in minutes): 34 CCU Objective - Vital Signs / Intake & Output Vital Signs (Last 4 hours): Vital Signs Temp Pulse Resp BP Pulse Ox 09/04/17 15:01 73 16 93/51 L 95 09/04/17 14:01 100 H 21 129/85 92 L 09/04/17 13:01 103 H 18 132/81 93 L 09/04/17 13:00 102 H 16 93 L 09/04/17 12:11 94 H 16 117/64 90 L 09/04/17 12:01 80 16 109/64 100 09/04/17 12:00 100.7 F H Intake and Output (Last 8hrs): Intake & Output 09/04/17 09/04/17 09/04/17 06:59 14:59 22:59 Intake Total 1063.1 585.0 33.7 Output Total 215 410 50 Balance 848.1 175.0 -16.3 Intake: IV 187.9 115 0 Intake, IV Amount 685.2 370.0 13.7 RIJ middle port 42 37.5 0 RIJ TLC blue port 223.2 226.8 Right Distal Port 31.2 27.3 3.9 Internal Jugular Right Medial Port 300 Internal Jugular Right Proximal Port 88.8 78.4 9.8 Internal Jugular Tube Feeding 0 100 20 Other 190 Output: Urine 215 410 50 Urethral (Rico) 215 410 50 - Physical Exam Head: Positive for: Atraumatic, Normocephalic Pupils: Positive for: PERRL Mouth: Positive for: Moist Mucous Membranes Respiratory/Chest: Positive for: Good Air Exchange, Wheezes, Rhonchi Cardiovascular: Positive for: Regular Rate and Rhythm, Normal S1, S2 Abdomen: Positive for: Normal Bowel Sounds Upper Extremity: Positive for: Normal Inspection - Medications Active Medications: Active Medications Generic Name Dose Route Start Last Admin Trade Name Freq PRN Reason Stop Dose Admin Acetaminophen 650 mg 09/03/17 22:46 09/04/17 13:04 Tylenol 650mg/20.3ml Solution Ud PO 650 mg Q4 PRN Administration for temperature >101 F Albuterol/Ipratropium 3 ml 08/31/17 04:00 09/04/17 15:50 Duoneb 3 Mg/0.5 Mg (3 Ml) Ud INH 3 ml RQ4 JENNIFER Administration Aspirin 81 mg 09/02/17 10:30 09/04/17 09:39 Aspirin Chewable PO 81 mg DAILY JENNIFER Administration Diltiazem HCl 60 mg 09/03/17 12:00 09/04/17 12:59 Cardizem PO 60 mg Q6H JENNIFER Administration Heparin Sodium (Porcine) 5,000 units 09/02/17 22:00 09/04/17 09:39 Heparin SC 5,000 units Q12 JENNIFER Administration Diltiazem HCl 125 mg/ Dextrose 125 mls @ 5 mls/hr 08/31/17 22:00 08/31/17 23: 30 IV 0 mg/hr .Q24H JENNIFER 0 mls/hr Protocol Titration 5 MG/HR Dexmedetomidine HCl 200 mcg/ 50 mls @ 3.24 mls/hr 09/02/17 10:33 09/04/17 14: 07 Sodium Chloride IV 0.6 mcg/kg/hr TITR PRN 9.72 mls/hr Sedation Administration Protocol 0.2 MCG/KG/HR Propofol 1,000 mg in 100 mls @ 3.889 mls/hr 09/02/17 14:40 09/04/17 06:00 Diprivan IV 10.02 mcg/kg/min .Q24H PRN 3.9 mls/hr TITRATE PER MD ORDER Administration Protocol 10 MCG/KG/MIN Diltiazem HCl 125 mg/ Sodium 125 mls @ 5 mls/hr 09/03/17 10:45 09/04/17 15:12 Chloride IV 0 mg/hr .Q24H JENNIFER 0 mls/hr Protocol Titration 5 MG/HR Doxycycline Hyclate 100 mg/ 100 mls @ 100 mls/hr 09/03/17 12:00 09/04/17 13: 00 Sodium Chloride IVPB 100 mls/hr Q12H JENNIFER Administration Piperacillin Sod/Tazobactam 100 mls @ 200 mls/hr 09/04/17 00:45 09/04/17 13: 01 Sod 3.375 gm/ Sodium Chloride IVPB 200 mls/hr Q6H JENNIFER Administration Insulin Aspart 0 unit 09/02/17 18:15 09/04/17 13:00 Novolog SC 2 unit Q6H JENNIFER Administration Protocol Methylprednisolone 40 mg 09/04/17 12:30 09/04/17 13:00 Solu-Medrol IVP 40 mg Q6H JENNIFER Administration Montelukast Sodium 10 mg 08/31/17 22:00 09/03/17 21:35 Singulair PO 10 mg HS JENNIFER Administration Pantoprazole Sodium 40 mg 09/02/17 10:45 09/04/17 09:39 Protonix Inj IVP 40 mg DAILY JENNIFER Administration - Patient Studies Lab Studies: Microbiology Studies 08/30/17 00:15 Blood Culture - Preliminary Blood NO GROWTH AFTER 4 DAYS 08/30/17 23:05 Blood Culture - Preliminary Blood NO GROWTH AFTER 4 DAYS 09/03/17 17:16 Gram Stain - Final Trachasp 09/01/17 00:58 Gram Stain - Final Trachasp Sputum Culture - Final NORMAL SAPROPHYTIC [place] Lab Studies 09/04/17 09/04/17 09/04/17 Range/Units 12:37 06:23 06:23 WBC 15.6 H (4.8-10.8) K/uL RBC 4.09 (3.80-5.20) Mil/uL Hgb 9.0 L (11.0-16.0) g/dL Hct 30.5 L (34.0-47.0) % MCV 74.7 L (81.0-99.0) fL MCH 22.1 L (27.0-31.0) pg MCHC 29.5 L (33.0-37.0) g/dL RDW 22.1 H (11.5-14.5) % Plt Count 216 (130-400) K/uL MPV 8.7 (7.2-11.7) fL Neut % (Auto) 88.2 H (50.0-75.0) % Lymph % (Auto) 5.5 L (20.0-40.0) % [place] % (Auto) 6.2 (0.0-10.0) % Eos % (Auto) 0.0 (0.0-4.0) % Baso % (Auto) 0.1 (0.0-2.0) % Neut # (Auto) 13.8 H (1.8-7.0) K/uL Lymph # (Auto) 0.9 L (1.0-4.3) K/uL [place] # (Auto) 1.0 H (0.0-0.8) K/uL Eos # (Auto) 0.0 (0.0-0.7) K/uL Baso # (Auto) 0.0 (0.0-0.2) K/uL Neutrophils % (Manual) 89 H (50-75) % Band Neutrophils % 1 (0-2) % Lymphocytes % (Manual) 3 L (20-40) % Monocytes % (Manual) 7 (0-10) % Platelet Estimate Normal (NORMAL) Large Platelets Present Polychromasia Slight Hypochromasia (manual) Moderate Poikilocytosis (manual Slight Anisocytosis (manual) Moderate Microcytosis (manual) Slight Ovalocytes Slight [place] Cells Slight Schistocytes Slight Puncture Site pCO2 (35-45) mm/Hg pO2 (80-100) mm/Hg HCO3 (21-28) mmol/L ABG pH (7.35-7.45) ABG Total CO2 (22-28) mmol/L ABG O2 Saturation (95-98) % ABG Base Excess (-2.0-3.0) mmol/L Bill Test ABG Potassium (3.6-5.2) mmol/L A-a O2 Difference mm/Hg Respiratory Index Sodium 152 H (132-148) mmol/l Chloride 108 H (98-107) mmol/L Glucose (65-105) mg/dl Lactate (0.7-2.1) mmol/L Vent Mode Mechanical Rate FiO2 % Tidal Volume PEEP Potassium 3.9 (3.6-5.2) mmol/L Carbon Dioxide 34 H (22-30) mmol/L Anion Gap 13 (10-20) BUN 53 H (7-17) mg/dL Creatinine 1.0 (0.7-1.2) mg/dL Est GFR ( Amer) > 60 Est GFR (Non-Af Amer) 54 POC Glucose (mg/dL) 215 H (65-110) mg/dL Random Glucose 224 H (65-105) mg/dL Calcium 7.6 L (8.6-10.4) mg/dl Phosphorus 3.9 (2.5-4.5) mg/dL Magnesium 2.7 H (1.6-2.3) mg/dL Total Bilirubin 0.3 (0.2-1.3) mg/dL AST 55 H D (14-36) U/L ALT 100 H (9-52) U/L Alkaline Phosphatase 74 (38-126) U/L Total Creatine Kinase (30-135) U/L CK-MB (Mass) (0.0-3.38) ng/mL Troponin I (0.00-0.120) ng/mL Total Protein 5.9 L (6.3-8.3) g/dL Albumin 3.0 L (3.5-5.0) g/dL Globulin 2.9 (2.2-3.9) gm/dL Albumin/Globulin Ratio 1.0 (1.0-2.1) Arterial Blood Potassium (3.6-5.2) mmol/L Urine Color (YELLOW) Urine Clarity (Clear) Urine pH (5.0-8.0) Ur Specific [place] (1.003-1.030) Urine Protein (NEGATIVE) mg/dL Urine Glucose (UA) (Normal) mg/dL Urine Ketones (NEGATIVE) mg/dL Urine Blood (NEGATIVE) Urine Nitrate (NEGATIVE) Urine Bilirubin (NEGATIVE) Urine Urobilinogen (0.2-1.0) mg/dL Ur Leukocyte Esterase (Negative) More/uL Urine WBC (Auto) (0-5) /hpf Urine RBC (Auto) (0-3) /hpf Ur Squamous Epith Cells (0-5) /hpf Uric Acid Crystals (<OCC) /hpf Urine Bacteria (<OCC) 09/04/17 09/04/17 09/04/17 Range/Units 06:08 04:25 03:15 WBC (4.8-10.8) K/uL RBC (3.80-5.20) Mil/uL Hgb (11.0-16.0) g/dL Hct (34.0-47.0) % MCV (81.0-99.0) fL MCH (27.0-31.0) pg MCHC (33.0-37.0) g/dL RDW (11.5-14.5) % Plt Count (130-400) K/uL MPV (7.2-11.7) fL Neut % (Auto) (50.0-75.0) % Lymph % (Auto) (20.0-40.0) % [place] % (Auto) (0.0-10.0) % Eos % (Auto) (0.0-4.0) % Baso % (Auto) (0.0-2.0) % Neut # (Auto) (1.8-7.0) K/uL Lymph # (Auto) (1.0-4.3) K/uL [place] # (Auto) (0.0-0.8) K/uL Eos # (Auto) (0.0-0.7) K/uL Baso # (Auto) (0.0-0.2) K/uL Neutrophils % (Manual) (50-75) % Band Neutrophils % (0-2) % Lymphocytes % (Manual) (20-40) % Monocytes % (Manual) (0-10) % Platelet Estimate (NORMAL) Large Platelets Polychromasia Hypochromasia (manual) Poikilocytosis (manual Anisocytosis (manual) Microcytosis (manual) Ovalocytes [place] Cells Schistocytes Puncture Site Rb pCO2 34 L (35-45) mm/Hg pO2 64 L (80-100) mm/Hg HCO3 29.4 H (21-28) mmol/L ABG pH 7.53 H (7.35-7.45) ABG Total CO2 29.4 H (22-28) mmol/L ABG O2 Saturation 97.0 (95-98) % ABG Base Excess 5.8 H (-2.0-3.0) mmol/L Bill Test Na ABG Potassium 4.8 (3.6-5.2) mmol/L A-a O2 Difference 250.0 mm/Hg Respiratory Index 3.9 Sodium 153.0 H (132-148) mmol/l Chloride 118.0 H (98-107) mmol/L Glucose 229 H (65-105) mg/dl Lactate 1.5 (0.7-2.1) mmol/L Vent Mode Pc Mechanical Rate 16 FiO2 50.0 % Tidal Volume 705 PEEP 5 Potassium (3.6-5.2) mmol/L Carbon Dioxide (22-30) mmol/L Anion Gap (10-20) BUN (7-17) mg/dL Creatinine (0.7-1.2) mg/dL Est GFR ( Amer) Est GFR (Non-Af Amer) POC Glucose (mg/dL) 255 H (65-110) mg/dL Random Glucose (65-105) mg/dL Calcium (8.6-10.4) mg/dl Phosphorus (2.5-4.5) mg/dL Magnesium (1.6-2.3) mg/dL Total Bilirubin (0.2-1.3) mg/dL AST (14-36) U/L ALT (9-52) U/L Alkaline Phosphatase (38-126) U/L Total Creatine Kinase 51 (30-135) U/L CK-MB (Mass) < 0.22 (0.0-3.38) ng/mL Troponin I 0.4940 H* (0.00-0.120) ng/mL Total Protein (6.3-8.3) g/dL Albumin (3.5-5.0) g/dL Globulin (2.2-3.9) gm/dL Albumin/Globulin Ratio (1.0-2.1) Arterial Blood Potassium 4.8 (3.6-5.2) mmol/L Urine Color (YELLOW) Urine Clarity (Clear) Urine pH (5.0-8.0) Ur Specific [place] (1.003-1.030) Urine Protein (NEGATIVE) mg/dL Urine Glucose (UA) (Normal) mg/dL Urine Ketones (NEGATIVE) mg/dL Urine Blood (NEGATIVE) Urine Nitrate (NEGATIVE) Urine Bilirubin (NEGATIVE) Urine Urobilinogen (0.2-1.0) mg/dL Ur Leukocyte Esterase (Negative) More/uL Urine WBC (Auto) (0-5) /hpf Urine RBC (Auto) (0-3) /hpf Ur Squamous Epith Cells (0-5) /hpf Uric Acid Crystals (<OCC) /hpf Urine Bacteria (<OCC) 09/04/17 09/03/17 09/03/17 Range/Units 00:05 23:26 23:26 WBC (4.8-10.8) K/uL RBC (3.80-5.20) Mil/uL Hgb (11.0-16.0) g/dL Hct (34.0-47.0) % MCV (81.0-99.0) fL MCH (27.0-31.0) pg MCHC (33.0-37.0) g/dL RDW (11.5-14.5) % Plt Count (130-400) K/uL MPV (7.2-11.7) fL Neut % (Auto) (50.0-75.0) % Lymph % (Auto) (20.0-40.0) % [place] % (Auto) (0.0-10.0) % Eos % (Auto) (0.0-4.0) % Baso % (Auto) (0.0-2.0) % Neut # (Auto) (1.8-7.0) K/uL Lymph # (Auto) (1.0-4.3) K/uL [place] # (Auto) (0.0-0.8) K/uL Eos # (Auto) (0.0-0.7) K/uL Baso # (Auto) (0.0-0.2) K/uL Neutrophils % (Manual) (50-75) % Band Neutrophils % (0-2) % Lymphocytes % (Manual) (20-40) % Monocytes % (Manual) (0-10) % Platelet Estimate (NORMAL) Large Platelets Polychromasia Hypochromasia (manual) Poikilocytosis (manual Anisocytosis (manual) Microcytosis (manual) Ovalocytes [place] Cells Schistocytes Puncture Site pCO2 (35-45) mm/Hg pO2 (80-100) mm/Hg HCO3 (21-28) mmol/L ABG pH (7.35-7.45) ABG Total CO2 (22-28) mmol/L ABG O2 Saturation (95-98) % ABG Base Excess (-2.0-3.0) mmol/L Bill Test ABG Potassium (3.6-5.2) mmol/L A-a O2 Difference mm/Hg Respiratory Index Sodium 149 H (132-148) mmol/l Chloride 106 (98-107) mmol/L Glucose (65-105) mg/dl Lactate (0.7-2.1) mmol/L Vent Mode Mechanical Rate FiO2 % Tidal Volume PEEP Potassium 4.1 (3.6-5.2) mmol/L Carbon Dioxide 34 H (22-30) mmol/L Anion Gap 12 (10-20) BUN 46 H (7-17) mg/dL Creatinine 1.0 (0.7-1.2) mg/dL Est GFR ( Amer) > 60 Est GFR (Non-Af Amer) 54 POC Glucose (mg/dL) 174 H (65-110) mg/dL Random Glucose 170 H (65-105) mg/dL Calcium 7.6 L (8.6-10.4) mg/dl Phosphorus 1.8 L (2.5-4.5) mg/dL Magnesium 2.6 H (1.6-2.3) mg/dL Total Bilirubin (0.2-1.3) mg/dL AST (14-36) U/L ALT (9-52) U/L Alkaline Phosphatase (38-126) U/L Total Creatine Kinase (30-135) U/L CK-MB (Mass) (0.0-3.38) ng/mL Troponin I (0.00-0.120) ng/mL Total Protein (6.3-8.3) g/dL Albumin (3.5-5.0) g/dL Globulin (2.2-3.9) gm/dL Albumin/Globulin Ratio (1.0-2.1) Arterial Blood Potassium (3.6-5.2) mmol/L Urine Color Yellow (YELLOW) Urine Clarity Hazy (Clear) Urine pH 5.0 (5.0-8.0) Ur Specific [place] 1.025 (1.003-1.030) Urine Protein 2+ H (NEGATIVE) mg/dL Urine Glucose (UA) Normal (Normal) mg/dL Urine Ketones Negative (NEGATIVE) mg/dL Urine Blood 1+ H (NEGATIVE) Urine Nitrate Negative (NEGATIVE) Urine Bilirubin Negative (NEGATIVE) Urine Urobilinogen Normal (0.2-1.0) mg/dL Ur Leukocyte Esterase Neg (Negative) More/uL Urine WBC (Auto) 3 (0-5) /hpf Urine RBC (Auto) 38 H (0-3) /hpf Ur Squamous Epith Cells < 1 (0-5) /hpf Uric Acid Crystals Occ H (<OCC) /hpf Urine Bacteria Rare (<OCC) 09/03/17 09/03/17 09/03/17 Range/Units 17:55 17:03 16:20 WBC (4.8-10.8) K/uL RBC (3.80-5.20) Mil/uL Hgb (11.0-16.0) g/dL Hct (34.0-47.0) % MCV (81.0-99.0) fL MCH (27.0-31.0) pg MCHC (33.0-37.0) g/dL RDW (11.5-14.5) % Plt Count (130-400) K/uL MPV (7.2-11.7) fL Neut % (Auto) (50.0-75.0) % Lymph % (Auto) (20.0-40.0) % [place] % (Auto) (0.0-10.0) % Eos % (Auto) (0.0-4.0) % Baso % (Auto) (0.0-2.0) % Neut # (Auto) (1.8-7.0) K/uL Lymph # (Auto) (1.0-4.3) K/uL [place] # (Auto) (0.0-0.8) K/uL Eos # (Auto) (0.0-0.7) K/uL Baso # (Auto) (0.0-0.2) K/uL Neutrophils % (Manual) (50-75) % Band Neutrophils % (0-2) % Lymphocytes % (Manual) (20-40) % Monocytes % (Manual) (0-10) % Platelet Estimate (NORMAL) Large Platelets Polychromasia Hypochromasia (manual) Poikilocytosis (manual Anisocytosis (manual) Microcytosis (manual) Ovalocytes [place] Cells Schistocytes Puncture Site Rra pCO2 43 (35-45) mm/Hg pO2 71 L (80-100) mm/Hg HCO3 34.9 H (21-28) mmol/L ABG pH 7.54 H (7.35-7.45) ABG Total CO2 38.1 H (22-28) mmol/L ABG O2 Saturation 97.4 (95-98) % ABG Base Excess 12.8 H (-2.0-3.0) mmol/L Bill Test Na ABG Potassium 4.4 (3.6-5.2) mmol/L A-a O2 Difference 232.0 mm/Hg Respiratory Index 3.3 Sodium 150.0 H (132-148) mmol/l Chloride 112.0 H (98-107) mmol/L Glucose 254 H (65-105) mg/dl Lactate 1.9 (0.7-2.1) mmol/L Vent Mode A/c pc Mechanical Rate 16 FiO2 50.0 % Tidal Volume PEEP Potassium (3.6-5.2) mmol/L Carbon Dioxide (22-30) mmol/L Anion Gap (10-20) BUN (7-17) mg/dL Creatinine (0.7-1.2) mg/dL Est GFR ( Amer) Est GFR (Non-Af Amer) POC Glucose (mg/dL) 223 H (65-110) mg/dL Random Glucose (65-105) mg/dL Calcium (8.6-10.4) mg/dl Phosphorus (2.5-4.5) mg/dL Magnesium (1.6-2.3) mg/dL Total Bilirubin (0.2-1.3) mg/dL AST (14-36) U/L ALT (9-52) U/L Alkaline Phosphatase (38-126) U/L Total Creatine Kinase (30-135) U/L CK-MB (Mass) (0.0-3.38) ng/mL Troponin I 0.2950 H* (0.00-0.120) ng/mL Total Protein (6.3-8.3) g/dL Albumin (3.5-5.0) g/dL Globulin (2.2-3.9) gm/dL Albumin/Globulin Ratio (1.0-2.1) Arterial Blood Potassium 4.4 (3.6-5.2) mmol/L Urine Color (YELLOW) Urine Clarity (Clear) Urine pH (5.0-8.0) Ur Specific [place] (1.003-1.030) Urine Protein (NEGATIVE) mg/dL Urine Glucose (UA) (Normal) mg/dL Urine Ketones (NEGATIVE) mg/dL Urine Blood (NEGATIVE) Urine Nitrate (NEGATIVE) Urine Bilirubin (NEGATIVE) Urine Urobilinogen (0.2-1.0) mg/dL Ur Leukocyte Esterase (Negative) More/uL Urine WBC (Auto) (0-5) /hpf Urine RBC (Auto) (0-3) /hpf Ur Squamous Epith Cells (0-5) /hpf Uric Acid Crystals (<OCC) /hpf Urine Bacteria (<OCC) Laboratory Results - last 24 hr 09/03/17 09/03/17 09/03/17 16:20 17:03 17:55 WBC RBC Hgb Hct MCV MCH MCHC RDW Plt Count MPV Neut % (Auto) Lymph % (Auto) [place] % (Auto) Eos % (Auto) Baso % (Auto) Neut # (Auto) Lymph # (Auto) [place] # (Auto) Eos # (Auto) Baso # (Auto) Neutrophils % (Manual) Band Neutrophils % Lymphocytes % (Manual) Monocytes % (Manual) Platelet Estimate Large Platelets Polychromasia Hypochromasia (manual) Poikilocytosis (manual Anisocytosis (manual) Microcytosis (manual) Ovalocytes [place] Cells Schistocytes Puncture Site Rra pCO2 43 pO2 71 L HCO3 34.9 H ABG pH 7.54 H ABG Total CO2 38.1 H ABG O2 Saturation 97.4 ABG Base Excess 12.8 H Bill Test Na ABG Potassium 4.4 A-a O2 Difference 232.0 Respiratory Index 3.3 Sodium 150.0 H Chloride 112.0 H Glucose 254 H Lactate 1.9 Vent Mode A/c pc Mechanical Rate 16 FiO2 50.0 Tidal Volume PEEP Potassium Carbon Dioxide Anion Gap BUN Creatinine Est GFR ( Amer) Est GFR (Non-Af Amer) POC Glucose (mg/dL) 223 H Random Glucose Calcium Phosphorus Magnesium Total Bilirubin AST ALT Alkaline Phosphatase Total Creatine Kinase CK-MB (Mass) Troponin I 0.2950 H* Total Protein Albumin Globulin Albumin/Globulin Ratio Arterial Blood Potassium 4.4 Urine Color Urine Clarity Urine pH Ur Specific [place] Urine Protein Urine Glucose (UA) Urine Ketones Urine Blood Urine Nitrate Urine Bilirubin Urine Urobilinogen Ur Leukocyte Esterase Urine WBC (Auto) Urine RBC (Auto) Ur Squamous Epith Cells Uric Acid Crystals Urine Bacteria 09/03/17 09/03/17 09/04/17 23:26 23:26 00:05 WBC RBC Hgb Hct MCV MCH MCHC RDW Plt Count MPV Neut % (Auto) Lymph % (Auto) [place] % (Auto) Eos % (Auto) Baso % (Auto) Neut # (Auto) Lymph # (Auto) [place] # (Auto) Eos # (Auto) Baso # (Auto) Neutrophils % (Manual) Band Neutrophils % Lymphocytes % (Manual) Monocytes % (Manual) Platelet Estimate Large Platelets Polychromasia Hypochromasia (manual) Poikilocytosis (manual Anisocytosis (manual) Microcytosis (manual) Ovalocytes [place] Cells Schistocytes Puncture Site pCO2 pO2 HCO3 ABG pH ABG Total CO2 ABG O2 Saturation ABG Base Excess Bill Test ABG Potassium A-a O2 Difference Respiratory Index Sodium 149 H Chloride 106 Glucose Lactate Vent Mode Mechanical Rate FiO2 Tidal Volume PEEP Potassium 4.1 Carbon Dioxide 34 H Anion Gap 12 BUN 46 H Creatinine 1.0 Est GFR ( Amer) > 60 Est GFR (Non-Af Amer) 54 POC Glucose (mg/dL) 174 H Random Glucose 170 H Calcium 7.6 L Phosphorus 1.8 L Magnesium 2.6 H Total Bilirubin AST ALT Alkaline Phosphatase Total Creatine Kinase CK-MB (Mass) Troponin I Total Protein Albumin Globulin Albumin/Globulin Ratio Arterial Blood Potassium Urine Color Yellow Urine Clarity Hazy Urine pH 5.0 Ur Specific [place] 1.025 Urine Protein 2+ H Urine Glucose (UA) Normal Urine Ketones Negative Urine Blood 1+ H Urine Nitrate Negative Urine Bilirubin Negative Urine Urobilinogen Normal Ur Leukocyte Esterase Neg Urine WBC (Auto) 3 Urine RBC (Auto) 38 H Ur Squamous Epith Cells < 1 Uric Acid Crystals Occ H Urine Bacteria Rare 09/04/17 09/04/17 09/04/17 03:15 04:25 06:08 WBC RBC Hgb Hct MCV MCH MCHC RDW Plt Count MPV Neut % (Auto) Lymph % (Auto) [place] % (Auto) Eos % (Auto) Baso % (Auto) Neut # (Auto) Lymph # (Auto) [place] # (Auto) Eos # (Auto) Baso # (Auto) Neutrophils % (Manual) Band Neutrophils % Lymphocytes % (Manual) Monocytes % (Manual) Platelet Estimate Large Platelets Polychromasia Hypochromasia (manual) Poikilocytosis (manual Anisocytosis (manual) Microcytosis (manual) Ovalocytes [place] Cells Schistocytes Puncture Site Rb pCO2 34 L pO2 64 L HCO3 29.4 H ABG pH 7.53 H ABG Total CO2 29.4 H ABG O2 Saturation 97.0 ABG Base Excess 5.8 H Bill Test Na ABG Potassium 4.8 A-a O2 Difference 250.0 Respiratory Index 3.9 Sodium 153.0 H Chloride 118.0 H Glucose 229 H Lactate 1.5 Vent Mode Pc Mechanical Rate 16 FiO2 50.0 Tidal Volume 705 PEEP 5 Potassium Carbon Dioxide Anion Gap BUN Creatinine Est GFR ( Amer) Est GFR (Non-Af Amer) POC Glucose (mg/dL) 255 H Random Glucose Calcium Phosphorus Magnesium Total Bilirubin AST ALT Alkaline Phosphatase Total Creatine Kinase 51 CK-MB (Mass) < 0.22 Troponin I 0.4940 H* Total Protein Albumin Globulin Albumin/Globulin Ratio Arterial Blood Potassium 4.8 Urine Color Urine Clarity Urine pH Ur Specific [place] Urine Protein Urine Glucose (UA) Urine Ketones Urine Blood Urine Nitrate Urine Bilirubin Urine Urobilinogen Ur Leukocyte Esterase Urine WBC (Auto) Urine RBC (Auto) Ur Squamous Epith Cells Uric Acid Crystals Urine Bacteria 09/04/17 09/04/17 09/04/17 06:23 06:23 12:37 WBC 15.6 H RBC 4.09 Hgb 9.0 L Hct 30.5 L MCV 74.7 L MCH 22.1 L MCHC 29.5 L RDW 22.1 H Plt Count 216 MPV 8.7 Neut % (Auto) 88.2 H Lymph % (Auto) 5.5 L [place] % (Auto) 6.2 Eos % (Auto) 0.0 Baso % (Auto) 0.1 Neut # (Auto) 13.8 H Lymph # (Auto) 0.9 L [place] # (Auto) 1.0 H Eos # (Auto) 0.0 Baso # (Auto) 0.0 Neutrophils % (Manual) 89 H Band Neutrophils % 1 Lymphocytes % (Manual) 3 L Monocytes % (Manual) 7 Platelet Estimate Normal Large Platelets Present Polychromasia Slight Hypochromasia (manual) Moderate Poikilocytosis (manual Slight Anisocytosis (manual) Moderate Microcytosis (manual) Slight Ovalocytes Slight [place] Cells Slight Schistocytes Slight Puncture Site pCO2 pO2 HCO3 ABG pH ABG Total CO2 ABG O2 Saturation ABG Base Excess Bill Test ABG Potassium A-a O2 Difference Respiratory Index Sodium 152 H Chloride 108 H Glucose Lactate Vent Mode Mechanical Rate FiO2 Tidal Volume PEEP Potassium 3.9 Carbon Dioxide 34 H Anion Gap 13 BUN 53 H Creatinine 1.0 Est GFR ( Amer) > 60 Est GFR (Non-Af Amer) 54 POC Glucose (mg/dL) 215 H Random Glucose 224 H Calcium 7.6 L Phosphorus 3.9 Magnesium 2.7 H Total Bilirubin 0.3 AST 55 H D ALT 100 H Alkaline Phosphatase 74 Total Creatine Kinase CK-MB (Mass) Troponin I Total Protein 5.9 L Albumin 3.0 L Globulin 2.9 Albumin/Globulin Ratio 1.0 Arterial Blood Potassium Urine Color Urine Clarity Urine pH Ur Specific [place] Urine Protein Urine Glucose (UA) Urine Ketones Urine Blood Urine Nitrate Urine Bilirubin Urine Urobilinogen Ur Leukocyte Esterase Urine WBC (Auto) Urine RBC (Auto) Ur Squamous Epith Cells Uric Acid Crystals Urine Bacteria EKG/Cardiology Studies: Cardiology / EKG Studies 09/04/17 10:30 EKG [ELECTROCARDIOGRAM] DAILY Comment: Mode Of Transportation: Reason For Exam: qtc 09/05/17 10:30 EKG [ELECTROCARDIOGRAM] DAILY Comment: Mode Of Transportation: Reason For Exam: qtc 09/06/17 10:30 EKG [ELECTROCARDIOGRAM] DAILY Comment: Mode Of Transportation: Reason For Exam: qtc Fingerstick Blood Sugar Results: 255 Critical Care Progress Note - Ventilator Checklist Daily Sedation Vacation: Yes Daily Assessment of Readiness to Wean: Yes Daily Spontaneous Breathing Trial: Yes PUD Prophalyxis: Yes DVT Prophylaxis: Yes Oral Care with Chlorhexidine Gluconate {CHG}: Yes - Nutrition Nutrition: Nutrition Category Date Time Status NPO Diet [DIET] Diets 09/01/17 Breakfast Active Assessment/Plan - Assessment and Plan (Free Text) Assessment: Hypoxic and hypercapneic respiratory failure: continue ventilation, continue solumedrol and duonebs, tolerated CPAP, suctioned out secretions - anxiety, neuropathy: continue precedex +/-propofol -Diastolice/Systolic heart failure with CAD/type II NC: HR controlled, continue Crestor 10mg PO qhs, ASA 81mg, cardiology eval -tolerating NG tube feeds -contineu DVT/PUD ppx FIO2 improved to 40%, continue pulmonary toilet DVT neg cc time 34 minutes - Date & Time Date: 09/04/17 Time: 16:05
[2017-09-05] MEDS: Piperacillin/Tazobact 3.375 GM in Sodium Chloride 0.9% 100 ML IVPB SCH ×5 (00:08→23:57)
[2017-09-05] MEDS: (Novolog) Insulin Aspart, Recombinant 100 u/ml 10 ml vial SC SCH ×5 (00:33→17:57)
[2017-09-05] MEDS: Dexmedetomidine Hydrochloride 200 MCG in Sodium Chloride 0.9% 48 ML IV PRN ×2 (01:45→07:00)
[2017-09-05] MEDS: Albuterol-Ipratrop 3 mg / 0.5 (3 ml) UD INH SCH (03:00)
[2017-09-05] MEDS: Acetaminophen 650mg/20.3ml solution UD PO PRN ×2 (04:05→08:31)
[2017-09-05 04:38] LABS: ARTERIAL BLOOD GAS HCO3 31.5 mmol/L (21-28); ARTERIAL BLOOD GAS O2 SAT 96.7 % (95-98); ARTERIAL BLOOD GAS PCO2 38 mm/Hg (35-45); ARTERIAL BLOOD GAS PH 7.53 (7.35-7.45); ARTERIAL BLOOD GAS PO2 72 mm/Hg (80-100)
[2017-09-05] MEDS: MethylPREDNISolone 40 mg Vial IVP SCH ×2 (06:15→17:10)
[2017-09-05 06:46] LABS: LYMPH # 0.2 K/uL (1.0-4.3); MEAN CELL VOLUME 75.6 fL (81.0-99.0); MEAN CORPUSCULAR HEMOGLOBIN 22.3 pg (27.0-31.0); MEAN CORPUSCULAR HGB CONC 29.5 g/dL (33.0-37.0); MONO # 0.9 K/uL (0.0-0.8)
[2017-09-05 07:02] LABS: LYMPH % 1.5 % (20.0-40.0); MEAN PLATELET VOLUME 9.2 fL (7.2-11.7); MONO % 6.9 % (0.0-10.0); NEUT # 12.5 K/uL (1.8-7.0); NEUT % 91.6 % (50.0-75.0); NRBC % 1.2 % (0.0-2.0); PLATELET COUNT 225 K/uL (130-400); RBC 3.98 Mil/uL (3.80-5.20); RED CELL DISTRIBUTION WIDTH 23.1 % (11.5-14.5); WHITE BLOOD COUNT 13.6 K/uL (4.8-10.8)
[2017-09-05 07:08] LABS: ALT/SGPT 82 U/L (9-52); AST/SGOT 39 U/L (14-36); BLOOD UREA NITROGEN 45 mg/dL (7-17); CALCIUM 7.6 mg/dl (8.6-10.4); GFR AFRICAN-AMERICAN > 60; GFR NON-AFRICAN AMERICAN > 60; MAGNESIUM 2.8 mg/dL (1.6-2.3)
[2017-09-05 07:10] LABS: HEMOGLOBIN 8.9 g/dL (11.0-16.0)
--- NOTE | 2017-09-05 08:43 | RAD ---
Chest x-ray single frontal view History: Pleural effusion. Comparison: 09/04/2017 Findings: Lines and tubes stable position. Additional multiple external wires and tubing. Clinical correlation. Moderate venous congestion. Consolidative opacity at the left lung base with small to moderate left pleural effusion. Status post median sternotomy and CABG. Calcification at the aortic knob. Cardiomegaly. Surgical clips in the left axilla. Degenerative changes in the spine and shoulders. Suggestion of a chondroid matrix in the proximal right humerus. Clinical correlation. Impression: No significant interval change.
[2017-09-05 08:51] LABS: ANISOCYTOSIS MODERATE; BANDS 3 % (0-2); HYPOCHROMIC SLIGHT; LYMPHOCYTE 1 % (20-40); MONOCYTE 4 % (0-10); NEUTROPHIL 92 % (50-75); PLATELET ESTIMATE NORMAL (NORMAL); TOTAL CELLS COUNTED 100
[2017-09-05 08:52] LABS: OVALOCYTES SLIGHT; POIKILOCYTOSIS SLIGHT
--- NOTE | 2017-09-05 10:05 | PN ---
DATE: 09/04/2017. The patient is on ventilator. Still had wheezing . Decreased breath sounds. Leslie Mak MD
--- NOTE | 2017-09-05 10:34 | VASCLAB ---
PROCEDURE: Lower Extremity Venous Duplex Exam. HISTORY: LE swelling PRIORS: None. TECHNIQUE: Bilateral common femoral, femoral, popliteal and posterior tibial, peroneal and great saphenous veins were evaluated. Flow was assessed with color Doppler, compressibility, assessment of phasic flow and augmentation response. Report prepared by NESHA Travis, RVT FINDINGS: RIGHT: 1. Common Femoral Vein: 1.1. Compressibility - Fully compressible: Thrombus - None : Flow - Phasic: Augmentation -Normal: Reflux - None. 2. Femoral Vein: 2.1. Compressibility - Fully compressible: Thrombus - None : Flow - Phasic: Augmentation -Normal: Reflux - None. 3. Popliteal Vein: 3.1. Compressibility - Fully compressible: Thrombus - None : Flow - Phasic: Augmentation -Normal: Reflux - None. 4. Posterior Tibial Vein: 4.1. Compressibility - Fully compressible: Thrombus - None: Flow - Phasic: Augmentation -Normal: Reflux - None. 5. Peroneal Vein: 5.1. Compressibility - Fully compressible: Thrombus - None: Flow - Phasic: Augmentation -Normal: Reflux - None. 6. Great Saphenous Vein: 6.1. Compressibility - : Thrombus - : Flow - : Augmentation - : Reflux - . LEFT: 1. Common Femoral Vein: 1.1. Compressibility - Fully compressible: Thrombus - None: Flow - Phasic: Augmentation -Normal: Reflux - None. 2. Femoral Vein: 2.1. Compressibility - Fully compressible: Thrombus - None: Flow - Phasic: Augmentation -Normal: Reflux - None. 3. Popliteal Vein: 3.1. Compressibility - Fully compressible: Thrombus - None : Flow - Phasic: Augmentation -Normal: Reflux - None. 4. Posterior Tibial Vein: 4.1. Compressibility - Fully compressible: Thrombus - None: Flow - Phasic: Augmentation -Normal: Reflux - None. 5. Peroneal Vein: 5.1. Compressibility - Fully compressible: Thrombus - None: Flow - Phasic: Augmentation -Normal: Reflux - None. 6. Great Saphenous Vein: 6.1. Compressibility - : Thrombus - : Flow - : Augmentation - : Reflux - . OTHER FINDINGS: Right: None significant. Left: None significant. IMPRESSION: Right: No evidence of deep or superficial vein thrombosis of the right lower extremity. Normal valve function noted of the right side. Left: No evidence of deep or superficial vein thrombosis of the left lower extremity. Normal valve function noted of the left side.
[2017-09-05] MEDS: Propofol 10 mg/ml 1,000 MG/100 ML VIAL IV PRN ×3 (11:00→19:59)
--- NOTE | 2017-09-05 11:17 | CP.CCUPN ---
CCU Subjective - Physician Review Events Since Last Encounter (Free Text): 09/05/17 11:14 0600-BM x3 thick liquidy/pasty brown stools;incontinent care done;protective cream to redenned buttocks;turning q2h Enteral feeding @goal rate 50ml/hr;FSBS covered as per SS on rounds;aware of fever spikes;may be Precedex-induced Subjective (Free Text): 09/05/17 11:17 Patient seen and examined at bedside. Per nursing no acute events overnight 09/05/17 16:21 Critical Care Time Spent (in minutes): 45 CCU Objective - Vital Signs / Intake & Output Vital Signs (Last 4 hours): Vital Signs Temp 09/05/17 09:31 101.3 F H 09/05/17 08:31 102.4 F H Intake and Output (Last 8hrs): Intake & Output 09/04/17 09/05/17 09/05/17 22:59 06:59 14:59 Intake Total 579.6 904.0 187.4 Output Total 400 460 60 Balance 179.6 444.0 127.4 Weight 145 lb 8.081 oz Intake: IV 50 203.4 116.6 Intake, IV Amount 209.6 350.6 20.8 RIJ middle port 0 RIJ TLC blue port 100 200 Right Distal Port 31.2 54.6 7.8 Internal Jugular Right Proximal Port 78.4 96.0 13 Internal Jugular Tube Feeding 230 350 50 Other 90 Output: Urine 400 460 60 Urethral (Rico) 400 460 60 Other: # Bowel Movements 1 1 - Physical Exam Head: Positive for: Atraumatic, Normocephalic Pupils: Positive for: PERRL Mouth: Positive for: Moist Mucous Membranes Respiratory/Chest: Positive for: Good Air Exchange, Wheezes, Rhonchi Cardiovascular: Positive for: Regular Rate and Rhythm, Normal S1, S2 Abdomen: Positive for: Normal Bowel Sounds Upper Extremity: Positive for: Normal Inspection - Medications Active Medications: Active Medications Generic Name Dose Route Start Last Admin Trade Name Freq PRN Reason Stop Dose Admin Acetaminophen 650 mg 09/03/17 22:46 09/05/17 08:31 Tylenol 650mg/20.3ml Solution Ud PO 650 mg Q4 PRN Administration for temperature >101 F Aspirin 81 mg 09/02/17 10:30 09/05/17 10:00 Aspirin Chewable PO 81 mg DAILY JENNIFER Administration Diltiazem HCl 60 mg 09/03/17 12:00 09/05/17 05:12 Cardizem PO 60 mg Q6H JENNIFER Administration Heparin Sodium (Porcine) 5,000 units 09/02/17 22:00 09/05/17 10:00 Heparin SC 5,000 units Q12 JENNIFER Administration Propofol 1,000 mg in 100 mls @ 3.889 mls/hr 09/02/17 14:40 09/05/17 11:00 Diprivan IV 30 mcg/kg/min .Q24H PRN 11.667 mls/hr TITRATE PER MD ORDER Administration Protocol 10 MCG/KG/MIN Piperacillin Sod/Tazobactam 100 mls @ 200 mls/hr 09/04/17 00:45 09/05/17 06: 14 Sod 3.375 gm/ Sodium Chloride IVPB 200 mls/hr Q6H JENNIFER Administration Potassium Chloride 20 meq in 100 mls @ 50 mls/hr 09/05/17 11:30 09/05/17 10: 42 Potassium Chloride 20 Meq/100 Ml IVPB 09/05/17 13:29 50 mls/hr ONCE ONE Administration Insulin Aspart 0 unit 09/05/17 00:18 09/05/17 05:25 Novolog SC 3 unit Q6H JENNIFER Administration Protocol Methylprednisolone 20 mg 09/05/17 18:00 Solu-Medrol IVP BID [facility] Pantoprazole Sodium 40 mg 09/02/17 10:45 09/05/17 09:59 Protonix Inj IVP 40 mg DAILY JENNIFER Administration - Patient Studies Lab Studies: Microbiology Studies 09/03/17 17:16 Gram Stain - Final Trachasp Sputum Culture - Final Yeast Species 08/30/17 00:15 Blood Culture - Final Blood NO GROWTH AFTER 5 DAYS Gram Stain - Final TEST NOT PERFORMED 08/30/17 23:05 Blood Culture - Final Blood NO GROWTH AFTER 5 DAYS Gram Stain - Final TEST NOT PERFORMED 09/03/17 Unknown Urine Culture - Final Urine No Growth (<1,000 CFU/ML) 09/03/17 23:00 Blood Culture - Preliminary Blood NO GROWTH AFTER 24 HOURS 09/03/17 23:30 Blood Culture - Preliminary Blood NO GROWTH AFTER 24 HOURS 09/04/17 Unknown Gram Stain - Final Trachasp Lab Studies 09/05/17 09/05/17 09/05/17 Range/Units 06:38 06:37 05:21 WBC 13.6 H (4.8-10.8) K/uL RBC 3.98 (3.80-5.20) Mil/uL Hgb 8.9 L (11.0-16.0) g/dL Hct 30.1 L (34.0-47.0) % MCV 75.6 L (81.0-99.0) fL MCH 22.3 L (27.0-31.0) pg MCHC 29.5 L (33.0-37.0) g/dL RDW 23.1 H (11.5-14.5) % Plt Count 225 (130-400) K/uL MPV 9.2 (7.2-11.7) fL Neut % (Auto) 91.6 H (50.0-75.0) % Lymph % (Auto) 1.5 L (20.0-40.0) % [place] % (Auto) 6.9 (0.0-10.0) % Eos % (Auto) 0.0 (0.0-4.0) % Baso % (Auto) 0.0 (0.0-2.0) % Neut # (Auto) 12.5 H (1.8-7.0) K/uL Lymph # (Auto) 0.2 L (1.0-4.3) K/uL [place] # (Auto) 0.9 H (0.0-0.8) K/uL Eos # (Auto) 0.0 (0.0-0.7) K/uL Baso # (Auto) 0.0 (0.0-0.2) K/uL Neutrophils % (Manual) 92 H (50-75) % Band Neutrophils % 3 H (0-2) % Lymphocytes % (Manual) 1 L (20-40) % Monocytes % (Manual) 4 (0-10) % Platelet Estimate Normal (NORMAL) Hypochromasia (manual) Slight Poikilocytosis (manual Slight Anisocytosis (manual) Moderate Ovalocytes Slight Puncture Site pCO2 (35-45) mm/Hg pO2 (80-100) mm/Hg HCO3 (21-28) mmol/L ABG pH (7.35-7.45) ABG Total CO2 (22-28) mmol/L ABG O2 Saturation (95-98) % ABG Base Excess (-2.0-3.0) mmol/L Bill Test ABG Potassium (3.6-5.2) mmol/L A-a O2 Difference mm/Hg Respiratory Index Sodium 157 H (132-148) mmol/l Chloride 113 H (98-107) mmol/L Glucose (65-105) mg/dl Lactate (0.7-2.1) mmol/L Vent Mode Mechanical Rate FiO2 % Tidal Volume PEEP Crit Value Called To Crit Value Called By Crit Value Read Back Blood Gas Notified Time Potassium 3.3 L (3.6-5.2) mmol/L Carbon Dioxide 33 H (22-30) mmol/L Anion Gap 14 (10-20) BUN 45 H (7-17) mg/dL Creatinine 0.8 (0.7-1.2) mg/dL Est GFR ( Amer) > 60 Est GFR (Non-Af Amer) > 60 POC Glucose (mg/dL) 283 H (65-110) mg/dL Random Glucose 255 H (65-105) mg/dL Calcium 7.6 L (8.6-10.4) mg/dl Phosphorus 3.0 (2.5-4.5) mg/dL Magnesium 2.8 H (1.6-2.3) mg/dL Total Bilirubin 0.4 (0.2-1.3) mg/dL AST 39 H D (14-36) U/L ALT 82 H (9-52) U/L Alkaline Phosphatase 87 (38-126) U/L Total Protein 6.1 L (6.3-8.3) g/dL Albumin 3.0 L (3.5-5.0) g/dL Globulin 3.1 (2.2-3.9) gm/dL Albumin/Globulin Ratio 1.0 (1.0-2.1) Arterial Blood Potassium (3.6-5.2) mmol/L 09/05/17 09/05/17 09/04/17 Range/Units 04:25 00:14 17:46 WBC (4.8-10.8) K/uL RBC (3.80-5.20) Mil/uL Hgb (11.0-16.0) g/dL Hct (34.0-47.0) % MCV (81.0-99.0) fL MCH (27.0-31.0) pg MCHC (33.0-37.0) g/dL RDW (11.5-14.5) % Plt Count (130-400) K/uL MPV (7.2-11.7) fL Neut % (Auto) (50.0-75.0) % Lymph % (Auto) (20.0-40.0) % [place] % (Auto) (0.0-10.0) % Eos % (Auto) (0.0-4.0) % Baso % (Auto) (0.0-2.0) % Neut # (Auto) (1.8-7.0) K/uL Lymph # (Auto) (1.0-4.3) K/uL [place] # (Auto) (0.0-0.8) K/uL Eos # (Auto) (0.0-0.7) K/uL Baso # (Auto) (0.0-0.2) K/uL Neutrophils % (Manual) (50-75) % Band Neutrophils % (0-2) % Lymphocytes % (Manual) (20-40) % Monocytes % (Manual) (0-10) % Platelet Estimate (NORMAL) Hypochromasia (manual) Poikilocytosis (manual Anisocytosis (manual) Ovalocytes Puncture Site Rb pCO2 38 (35-45) mm/Hg pO2 72 L (80-100) mm/Hg HCO3 31.5 H (21-28) mmol/L ABG pH 7.53 H (7.35-7.45) ABG Total CO2 33.0 H (22-28) mmol/L ABG O2 Saturation 96.7 (95-98) % ABG Base Excess 8.5 H (-2.0-3.0) mmol/L Bill Test Na ABG Potassium 3.5 L (3.6-5.2) mmol/L A-a O2 Difference 149.0 mm/Hg Respiratory Index 1.8 Sodium 160.0 H* (132-148) mmol/l Chloride 119.0 H (98-107) mmol/L Glucose 252 H (65-105) mg/dl Lactate 2.5 H (0.7-2.1) mmol/L Vent Mode Pc Mechanical Rate 16 FiO2 40.0 % Tidal Volume 720 PEEP 5 Crit Value Called To Jose medel Crit Value Called By Logan hobbs/rt Crit Value Read Back Y Blood Gas Notified Time 440 Potassium (3.6-5.2) mmol/L Carbon Dioxide (22-30) mmol/L Anion Gap (10-20) BUN (7-17) mg/dL Creatinine (0.7-1.2) mg/dL Est GFR ( Amer) Est GFR (Non-Af Amer) POC Glucose (mg/dL) 274 H 214 H (65-110) mg/dL Random Glucose (65-105) mg/dL Calcium (8.6-10.4) mg/dl Phosphorus (2.5-4.5) mg/dL Magnesium (1.6-2.3) mg/dL Total Bilirubin (0.2-1.3) mg/dL AST (14-36) U/L ALT (9-52) U/L Alkaline Phosphatase (38-126) U/L Total Protein (6.3-8.3) g/dL Albumin (3.5-5.0) g/dL Globulin (2.2-3.9) gm/dL Albumin/Globulin Ratio (1.0-2.1) Arterial Blood Potassium 3.5 L (3.6-5.2) mmol/L 09/04/17 Range/Units 12:37 WBC (4.8-10.8) K/uL RBC (3.80-5.20) Mil/uL Hgb (11.0-16.0) g/dL Hct (34.0-47.0) % MCV (81.0-99.0) fL MCH (27.0-31.0) pg MCHC (33.0-37.0) g/dL RDW (11.5-14.5) % Plt Count (130-400) K/uL MPV (7.2-11.7) fL Neut % (Auto) (50.0-75.0) % Lymph % (Auto) (20.0-40.0) % [place] % (Auto) (0.0-10.0) % Eos % (Auto) (0.0-4.0) % Baso % (Auto) (0.0-2.0) % Neut # (Auto) (1.8-7.0) K/uL Lymph # (Auto) (1.0-4.3) K/uL [place] # (Auto) (0.0-0.8) K/uL Eos # (Auto) (0.0-0.7) K/uL Baso # (Auto) (0.0-0.2) K/uL Neutrophils % (Manual) (50-75) % Band Neutrophils % (0-2) % Lymphocytes % (Manual) (20-40) % Monocytes % (Manual) (0-10) % Platelet Estimate (NORMAL) Hypochromasia (manual) Poikilocytosis (manual Anisocytosis (manual) Ovalocytes Puncture Site pCO2 (35-45) mm/Hg pO2 (80-100) mm/Hg HCO3 (21-28) mmol/L ABG pH (7.35-7.45) ABG Total CO2 (22-28) mmol/L ABG O2 Saturation (95-98) % ABG Base Excess (-2.0-3.0) mmol/L Bill Test ABG Potassium (3.6-5.2) mmol/L A-a O2 Difference mm/Hg Respiratory Index Sodium (132-148) mmol/l Chloride (98-107) mmol/L Glucose (65-105) mg/dl Lactate (0.7-2.1) mmol/L Vent Mode Mechanical Rate FiO2 % Tidal Volume PEEP Crit Value Called To Crit Value Called By Crit Value Read Back Blood Gas Notified Time Potassium (3.6-5.2) mmol/L Carbon Dioxide (22-30) mmol/L Anion Gap (10-20) BUN (7-17) mg/dL Creatinine (0.7-1.2) mg/dL Est GFR ( Amer) Est GFR (Non-Af Amer) POC Glucose (mg/dL) 215 H (65-110) mg/dL Random Glucose (65-105) mg/dL Calcium (8.6-10.4) mg/dl Phosphorus (2.5-4.5) mg/dL Magnesium (1.6-2.3) mg/dL Total Bilirubin (0.2-1.3) mg/dL AST (14-36) U/L ALT (9-52) U/L Alkaline Phosphatase (38-126) U/L Total Protein (6.3-8.3) g/dL Albumin (3.5-5.0) g/dL Globulin (2.2-3.9) gm/dL Albumin/Globulin Ratio (1.0-2.1) Arterial Blood Potassium (3.6-5.2) mmol/L Laboratory Results - last 24 hr 09/04/17 09/04/17 09/05/17 12:37 17:46 00:14 WBC RBC Hgb Hct MCV MCH MCHC RDW Plt Count MPV Neut % (Auto) Lymph % (Auto) [place] % (Auto) Eos % (Auto) Baso % (Auto) Neut # (Auto) Lymph # (Auto) [place] # (Auto) Eos # (Auto) Baso # (Auto) Neutrophils % (Manual) Band Neutrophils % Lymphocytes % (Manual) Monocytes % (Manual) Platelet Estimate Hypochromasia (manual) Poikilocytosis (manual Anisocytosis (manual) Ovalocytes Puncture Site pCO2 pO2 HCO3 ABG pH ABG Total CO2 ABG O2 Saturation ABG Base Excess Bill Test ABG Potassium A-a O2 Difference Respiratory Index Sodium Chloride Glucose Lactate Vent Mode Mechanical Rate FiO2 Tidal Volume PEEP Crit Value Called To Crit Value Called By Crit Value Read Back Blood Gas Notified Time Potassium Carbon Dioxide Anion Gap BUN Creatinine Est GFR ( Amer) Est GFR (Non-Af Amer) POC Glucose (mg/dL) 215 H 214 H 274 H Random Glucose Calcium Phosphorus Magnesium Total Bilirubin AST ALT Alkaline Phosphatase Total Protein Albumin Globulin Albumin/Globulin Ratio Arterial Blood Potassium 09/05/17 09/05/17 09/05/17 04:25 05:21 06:37 WBC RBC Hgb Hct MCV MCH MCHC RDW Plt Count MPV Neut % (Auto) Lymph % (Auto) [place] % (Auto) Eos % (Auto) Baso % (Auto) Neut # (Auto) Lymph # (Auto) [place] # (Auto) Eos # (Auto) Baso # (Auto) Neutrophils % (Manual) Band Neutrophils % Lymphocytes % (Manual) Monocytes % (Manual) Platelet Estimate Hypochromasia (manual) Poikilocytosis (manual Anisocytosis (manual) Ovalocytes Puncture Site Rb pCO2 38 pO2 72 L HCO3 31.5 H ABG pH 7.53 H ABG Total CO2 33.0 H ABG O2 Saturation 96.7 ABG Base Excess 8.5 H Bill Test Na ABG Potassium 3.5 L A-a O2 Difference 149.0 Respiratory Index 1.8 Sodium 160.0 H* 157 H Chloride 119.0 H 113 H Glucose 252 H Lactate 2.5 H Vent Mode Pc Mechanical Rate 16 FiO2 40.0 Tidal Volume 720 PEEP 5 Crit Value Called To Jose medel Crit Value Called By Logan hobbs/rt Crit Value Read Back Y Blood Gas Notified Time 440 Potassium 3.3 L Carbon Dioxide 33 H Anion Gap 14 BUN 45 H Creatinine 0.8 Est GFR ( Amer) > 60 Est GFR (Non-Af Amer) > 60 POC Glucose (mg/dL) 283 H Random Glucose 255 H Calcium 7.6 L Phosphorus 3.0 Magnesium 2.8 H Total Bilirubin 0.4 AST 39 H D ALT 82 H Alkaline Phosphatase 87 Total Protein 6.1 L Albumin 3.0 L Globulin 3.1 Albumin/Globulin Ratio 1.0 Arterial Blood Potassium 3.5 L 09/05/17 06:38 WBC 13.6 H RBC 3.98 Hgb 8.9 L Hct 30.1 L MCV 75.6 L MCH 22.3 L MCHC 29.5 L RDW 23.1 H Plt Count 225 MPV 9.2 Neut % (Auto) 91.6 H Lymph % (Auto) 1.5 L [place] % (Auto) 6.9 Eos % (Auto) 0.0 Baso % (Auto) 0.0 Neut # (Auto) 12.5 H Lymph # (Auto) 0.2 L [place] # (Auto) 0.9 H Eos # (Auto) 0.0 Baso # (Auto) 0.0 Neutrophils % (Manual) 92 H Band Neutrophils % 3 H Lymphocytes % (Manual) 1 L Monocytes % (Manual) 4 Platelet Estimate Normal Hypochromasia (manual) Slight Poikilocytosis (manual Slight Anisocytosis (manual) Moderate Ovalocytes Slight Puncture Site pCO2 pO2 HCO3 ABG pH ABG Total CO2 ABG O2 Saturation ABG Base Excess Bill Test ABG Potassium A-a O2 Difference Respiratory Index Sodium Chloride Glucose Lactate Vent Mode Mechanical Rate FiO2 Tidal Volume PEEP Crit Value Called To Crit Value Called By Crit Value Read Back Blood Gas Notified Time Potassium Carbon Dioxide Anion Gap BUN Creatinine Est GFR ( Amer) Est GFR (Non-Af Amer) POC Glucose (mg/dL) Random Glucose Calcium Phosphorus Magnesium Total Bilirubin AST ALT Alkaline Phosphatase Total Protein Albumin Globulin Albumin/Globulin Ratio Arterial Blood Potassium EKG/Cardiology Studies: Cardiology / EKG Studies 09/04/17 10:30 EKG [ELECTROCARDIOGRAM] DAILY Comment: Mode Of Transportation: Reason For Exam: qtc 09/04/17 16:02 EKG [ELECTROCARDIOGRAM] Stat Comment: Mode Of Transportation: Reason For Exam: eval cause of trop, ?demand ischemia vs NSTEMI 09/05/17 10:30 EKG [ELECTROCARDIOGRAM] DAILY Comment: Mode Of Transportation: Reason For Exam: qtc 09/06/17 10:30 EKG [ELECTROCARDIOGRAM] DAILY Comment: Mode Of Transportation: Reason For Exam: qtc Fingerstick Blood Sugar Results: 283 Review of Systems - Review of Systems Systems not reviewed;Unavailable: Intubated Assessment/Plan - Assessment and Plan (Free Text) Plan: neuro: anxiety, neuropathy - Diprivan 1000mg qd for sedation - D/C Precedex 200 mcg - APAP 650mg/20.3ml soln UD q4 PRN and follow temperature (continue cooling blanket PRN) cards: CHF - Cardizem 60mg PO q6h - check QTc x5d - ASA 81mg pulm: AECOPD, PNA, emphysema, asthma - D/C Singulair 10mg PO qhs- respirations on pressure controlled mode - Trial CPAP at 5 and 30 pressure support titrate to sats >92%. - FiO2 40%, rate 18, Tidal volume 450ml, PEEP:5 - Change Solu-Medrol 40mg IVP q8h to 20mg q12h - Zosyn 3.375g IV @ 100ml/hr IVPB q8h GI: Cdiff precaution - stool C. diff - consider bulking agent if diarrhea continues - OGT feeds with Glucerna Endo: DM2 - Novolog 3u q6h - accuchecks blood sugar levels q4h nephro: CKD - continue following I/O and kidney function tests ID: sepsis - f/u serologies for C. diff - D/C doxycycline 100mg/NaCl 0.9% q12- culture blood, urine, sputum PPx: - place PICC - heparin 5000U sc q12 - protonix 40mg IVP qd- KCl 20mEq/100ml @ 50ml/hr IVPB x1
[2017-09-05 14:35] LABS: ARTERIAL BLOOD GAS HCO3 30.1 mmol/L (21-28); ARTERIAL BLOOD GAS HEMOGLOBIN 9.3 g/dL (11.7-17.4); ARTERIAL BLOOD GAS O2 SAT 94.9 % (95-98); ARTERIAL BLOOD GAS PCO2 44 mm/Hg (35-45); ARTERIAL BLOOD GAS PH 7.46 (7.35-7.45); ARTERIAL BLOOD GAS PO2 61 mm/Hg (80-100); ARTERIAL BLOOD GAS TCO2 32.7 mmol/L (22-28)
[2017-09-05] MEDS ORDERED: Tramadol 25 mg PO ONE (15:33)
[2017-09-05] MEDS ORDERED: Acetaminophen 650mg/20.3ml solution UD PO STA (17:39)
--- NOTE | 2017-09-05 17:50 | CP.PCM.PN ---
Subjective - Date & Time of Evaluation Date of Evaluation: 09/05/17 Time of Evaluation: 17:47 - Subjective Subjective: has fever awake still on ventilator Objective - Vital Signs/Intake and Output Vital Signs (last 24 hours): Temp Pulse Resp BP Pulse Ox 99.3 F 114 H 27 H 147/89 91 L 09/05/17 12:00 09/05/17 15:01 09/05/17 15:01 09/05/17 15:01 09/05/17 15:01 Intake and Output: 09/05/17 09/05/17 06:59 18:59 Intake Total 1228.8 1404.0 Output Total 635 480 Balance 593.8 924.0 - Medications Medications: Current Medications Acetaminophen (Tylenol 650mg/20.3ml Solution Ud) 650 mg PO Q4 PRN PRN Reason: for temperature >101 F Last Admin: 09/05/17 08:31 Dose: 650 mg Acetaminophen (Tylenol 650mg/20.3ml Solution Ud) 650 mg PO STAT STA Stop: 09/05/17 17:40 Aspirin (Aspirin Chewable) 81 mg PO DAILY [facility] Last Admin: 09/05/17 10:00 Dose: 81 mg Diltiazem HCl (Cardizem) 60 mg PO Q6H [facility] Last Admin: 09/05/17 17:09 Dose: 60 mg Heparin Sodium (Porcine) (Heparin) 5,000 units SC Q12 [facility] Last Admin: 09/05/17 10:00 Dose: 5,000 units Propofol (Diprivan) 1,000 mg in 100 mls @ 3.889 mls/hr IV .Q24H PRN; Protocol; 10 MCG/KG/MIN PRN Reason: TITRATE PER MD ORDER Last Titration: 09/05/17 16:30 Dose: 30 mcg/kg/min, 11.667 mls/hr Piperacillin Sod/Tazobactam (Sod 3.375 gm/ Sodium Chloride) 100 mls @ 200 mls/ hr IVPB Q6H [facility] Last Admin: 09/05/17 12:23 Dose: 200 mls/hr Insulin Aspart (Novolog) 0 unit SC Q6H JENNIFER PRN Reason: Protocol Last Admin: 09/05/17 12:22 Dose: 3 unit Methylprednisolone (Solu-Medrol) 20 mg IVP BID [facility] Last Admin: 09/05/17 17:10 Dose: 20 mg Pantoprazole Sodium (Protonix Inj) 40 mg IVP DAILY [facility] Last Admin: 09/05/17 09:59 Dose: 40 mg Tramadol HCl (Ultram) 25 mg PO BID [facility] - Labs Labs: 09/05/17 06:38 09/05/17 06:37 PT 12.6 SECONDS (9.7-12.2) H 08/30/17 23:18 INR 1.1 08/30/17 23:18 APTT 28 SECONDS (21-34) 08/30/17 23:18 - Constitutional Appears: Toxic, In Acute Distress, Cachectic, Chronically Ill - Head Exam Head Exam: ATRAUMATIC - Eye Exam Eye Exam: Normal appearance - ENT Exam ENT Exam: Mucous Membranes Dry - Neck Exam Neck Exam: Full ROM - Respiratory Exam Respiratory Exam: Decreased Breath Sounds, Rales, Rhonchi - Cardiovascular Exam Cardiovascular Exam: Tachycardia
[2017-09-05] MEDS: Tramadol 25 mg PO SCH (18:18)
[2017-09-05 20:53] LABS: ALBUMIN 3.2 g/dL (3.5-5.0); ALT/SGPT 90 U/L (9-52); AST/SGOT 42 U/L (14-36); BLOOD UREA NITROGEN 39 mg/dL (7-17); CALCIUM 8.3 mg/dl (8.6-10.4); GFR AFRICAN-AMERICAN > 60; GFR NON-AFRICAN AMERICAN > 60; MAGNESIUM 2.9 mg/dL (1.6-2.3)
--- NOTE | 2017-09-05 21:06 | CARD ---
APPROVED REPORT EKG Measurement Heart [id number] CT [id number] <Conclusion> Normal sinus rhythm Septal infarct, age undetermined ST & T wave abnormality, consider inferior ischemia ST & T wave abnormality, consider anterolateral ischemia Prolonged QT Abnormal ECG
[2017-09-05 21:17] LABS: LYMPH # 0.2 K/uL (1.0-4.3); LYMPH % 1.2 % (20.0-40.0); MEAN CELL VOLUME 76.7 fL (81.0-99.0); MEAN CORPUSCULAR HEMOGLOBIN 22.6 pg (27.0-31.0); MEAN CORPUSCULAR HGB CONC 29.5 g/dL (33.0-37.0); MEAN PLATELET VOLUME 8.7 fL (7.2-11.7); MONO # 1.1 K/uL (0.0-0.8); MONO % 5.5 % (0.0-10.0); NEUT # 18.7 K/uL (1.8-7.0); NEUT % 93.3 % (50.0-75.0); PLATELET COUNT 269 K/uL (130-400); RBC 4.24 Mil/uL (3.80-5.20); RED CELL DISTRIBUTION WIDTH 22.5 % (11.5-14.5); WHITE BLOOD COUNT 20.1 K/uL (4.8-10.8)
[2017-09-05 21:20] LABS: HEMOGLOBIN 9.6 g/dL (11.0-16.0)
[2017-09-05 22:05] LABS: LYMPHOCYTE 2 % (20-40); MONOCYTE 6 % (0-10); NEUTROPHIL 92 % (50-75); PLATELET ESTIMATE NORMAL (NORMAL); TOTAL CELLS COUNTED 100
[2017-09-05 22:06] LABS: ANISOCYTOSIS SLIGHT; MICROCYTOSIS SLIGHT; POLYCHROMIC SLIGHT
[2017-09-05 22:07] LABS: BURR CELLS SLIGHT; HYPOCHROMIC MODERATE; OVALOCYTES SLIGHT; TEARDROP CELLS SLIGHT
[2017-09-06] MEDS: (Novolog) Insulin Aspart, Recombinant 100 u/ml 10 ml vial SC SCH ×2 (00:03→06:17)
[2017-09-06] MEDS: Albuterol-Ipratrop 3 mg / 0.5 (3 ml) UD INH SCH ×4 (01:23→20:22)
[2017-09-06] MEDS: Propofol 10 mg/ml 1,000 MG/100 ML VIAL IV PRN ×3 (03:00→17:24)
[2017-09-06] MEDS: Acetaminophen 650mg/20.3ml solution UD PO PRN (03:00)
[2017-09-06 05:50] LABS: ABG ALLEN TEST POS; ARTERIAL BLOOD GAS HCO3 31.8 mmol/L (21-28); ARTERIAL BLOOD GAS HEMOGLOBIN 8.9 g/dL (11.7-17.4); ARTERIAL BLOOD GAS O2 SAT 98.5 % (95-98); ARTERIAL BLOOD GAS PCO2 50 mm/Hg (35-45); ARTERIAL BLOOD GAS PH 7.44 (7.35-7.45); ARTERIAL BLOOD GAS PO2 86 mm/Hg (80-100); ARTERIAL BLOOD GAS TCO2 35.5 mmol/L (22-28)
[2017-09-06] MEDS: Piperacillin/Tazobact 3.375 GM in Sodium Chloride 0.9% 100 ML IVPB SCH ×3 (06:12→18:19)
--- NOTE | 2017-09-06 06:37 | PN ---
DATE: 09/05/2017 SUBJECTIVE: The patient is on the ventilator, supportive care, daily weaning, spiking temperature 101. Change in the central line. Leslie Mak MD
[2017-09-06 06:54] LABS: ALT/SGPT 101 U/L (9-52); AST/SGOT 70 U/L (14-36); BLOOD UREA NITROGEN 44 mg/dL (7-17); CALCIUM 8.5 mg/dl (8.6-10.4); GFR AFRICAN-AMERICAN > 60; GFR NON-AFRICAN AMERICAN > 60
[2017-09-06 07:05] LABS: HEMOGLOBIN 8.9 g/dL (11.0-16.0); LYMPH # 0.3 K/uL (1.0-4.3); LYMPH % 1.7 % (20.0-40.0); MEAN CELL VOLUME 76.9 fL (81.0-99.0); MEAN CORPUSCULAR HEMOGLOBIN 22.4 pg (27.0-31.0); MEAN CORPUSCULAR HGB CONC 29.1 g/dL (33.0-37.0); MEAN PLATELET VOLUME 9.1 fL (7.2-11.7); MONO # 1.9 K/uL (0.0-0.8); MONO % 9.9 % (0.0-10.0); NEUT # 17.2 K/uL (1.8-7.0); NEUT % 88.4 % (50.0-75.0); NRBC % 1.9 % (0.0-2.0); PLATELET COUNT 291 K/uL (130-400); RBC 3.96 Mil/uL (3.80-5.20); WHITE BLOOD COUNT 19.4 K/uL (4.8-10.8)
[2017-09-06 09:07] LABS: ANISOCYTOSIS SLIGHT; BANDS 1 % (0-2); HYPOCHROMIC SLIGHT; LYMPHOCYTE 5 % (20-40); MICROCYTOSIS SLIGHT; MONOCYTE 7 % (0-10); NEUTROPHIL 87 % (50-75); NUCLEATED RED BLOOD CELL 4 % (0-0); OVALOCYTES SLIGHT; PLATELET ESTIMATE NORMAL (NORMAL); POIKILOCYTOSIS SLIGHT; POLYCHROMIC SLIGHT; TOTAL CELLS COUNTED 100
[2017-09-06 09:08] LABS: TEARDROP CELLS SLIGHT
--- NOTE | 2017-09-06 09:12 | RAD ---
HISTORY: on vent COMPARISON: Comparison chest 09/05/2017 FINDINGS: In situ ETT, tip of which lies approximately 4.9 cm above timothy. NGT is present, the tip of which overlies left upper quadrant of the abdomen. Right IJ central venous line with tip in the SVC unchanged. LUNGS: Patchy bilateral lower lobe mid and right upper lobe infiltrates. . Questionable small left effusion. . PLEURA: No significant pleural effusion identified, no pneumothorax apparent. CARDIOVASCULAR: Sternotomy wires and CABG clips again noted. Heart remains enlarged. Aorta ectatic uncoiled with calcification aortic knob. . OSSEOUS STRUCTURES: No significant abnormalities. VISUALIZED UPPER ABDOMEN: Normal. OTHER FINDINGS: None. IMPRESSION: Support lines and tubes as above. Patchy bilateral infiltrates as described. Questionable small left effusion
[2017-09-06] MEDS: Tramadol 25 mg PO SCH ×2 (09:18→17:23)
[2017-09-06] MEDS: MethylPREDNISolone 40 mg Vial IVP SCH ×2 (09:19→18:16)
[2017-09-06] MEDS ORDERED: Primacor 1 mg/ml Inj (10 ml) IVP ONE (09:40)
[2017-09-06] MEDS ORDERED: Milrinone 20 MG in Dextrose 5% In Water 80 ML IV SCH (09:45)
--- NOTE | 2017-09-06 11:16 | CP.CCUPN ---
<Scott Mujica - Last Filed: 09/06/17 17:18> CCU Subjective - Physician Review Events Since Last Encounter (Free Text): 09/06/17 11:14 Overnight the patient had a Tmax of 102F. Patient was given rectal tylenol. Subjective (Free Text): 09/05/17 11:17 Patient seen and examined at bedside. Per nursing no acute events overnight 09/05/17 16:21 Critical Care Time Spent (in minutes): 45 CCU Objective - Vital Signs / Intake & Output Vital Signs (Last 4 hours): Vital Signs Temp Pulse Resp BP Pulse Ox 09/06/17 08:01 115 H 19 130/77 96 09/06/17 08:00 100.7 F H 116 H 24 130/77 96 Intake and Output (Last 8hrs): Intake & Output 09/05/17 09/06/17 09/06/17 22:59 06:59 14:59 Intake Total 594.1 1003.8 126.6 Output Total 345 425 50 Balance 249.1 578.8 76.6 Weight 145 lb 15.136 oz Intake: IV 90 146.8 53.2 Intake, IV Amount 174.1 217.0 23.4 Right Distal Port 74.1 117.0 23.4 Internal Jugular Right Medial Port 100 100 Internal Jugular Right Proximal Port 0 Internal Jugular Oral 30 Tube Feeding 300 400 50 Other 240 Output: Urine 345 425 50 Urethral (Rico) 345 425 50 Other: # Bowel Movements 1 - Physical Exam Head: Positive for: Atraumatic, Normocephalic Pupils: Positive for: PERRL Mouth: Positive for: Moist Mucous Membranes Respiratory/Chest: Positive for: Good Air Exchange, Wheezes, Rhonchi Cardiovascular: Positive for: Regular Rate and Rhythm, Normal S1, S2 Abdomen: Positive for: Normal Bowel Sounds Upper Extremity: Positive for: Normal Inspection - Medications Active Medications: Active Medications Generic Name Dose Route Start Last Admin Trade Name Freq PRN Reason Stop Dose Admin Acetaminophen 650 mg 09/03/17 22:46 09/06/17 03:00 Tylenol 650mg/20.3ml Solution Ud PO 650 mg Q4 PRN Administration for temperature >101 F Albuterol/Ipratropium 3 ml 09/06/17 02:00 09/06/17 08:09 Duoneb 3 Mg/0.5 Mg (3 Ml) Ud INH 3 ml RQ6 JENNIFER Administration Aspirin 81 mg 09/02/17 10:30 09/06/17 09:18 Aspirin Chewable PO 81 mg DAILY JENNIFER Administration Heparin Sodium (Porcine) 5,000 units 09/02/17 22:00 09/06/17 09:18 Heparin SC 5,000 units Q12 JENNIFER Administration Propofol 1,000 mg in 100 mls @ 3.889 mls/hr 09/02/17 14:40 09/06/17 09:13 Diprivan IV 40 mcg/kg/min .Q24H PRN 15.556 mls/hr TITRATE PER MD ORDER Titration Protocol 10 MCG/KG/MIN Piperacillin Sod/Tazobactam 100 mls @ 200 mls/hr 09/04/17 00:45 09/06/17 06: 12 Sod 3.375 gm/ Sodium Chloride IVPB 200 mls/hr Q6H JENNIFER Administration Milrinone Lactate/Dextrose 20 100 mls @ 8.53 mls/hr 09/06/17 09:45 mg/ Dextrose IV .[id number] JENNIFER 0.43 MCG/KG/MIN Insulin Human Regular 0 unit 09/06/17 11:30 Novolin R SC ACHS [facility] Protocol Methylprednisolone 20 mg 09/05/17 18:00 09/06/17 09:19 Solu-Medrol IVP 20 mg BID JENNIFER Administration Metoprolol Tartrate 25 mg 09/06/17 10:00 Lopressor PO BID JENNIFER Pantoprazole Sodium 40 mg 09/02/17 10:45 09/06/17 09:18 Protonix Inj IVP 40 mg DAILY JENNIFER Administration Tramadol HCl 25 mg 09/05/17 18:00 09/06/17 09:18 Ultram PO 25 mg BID JENNIFER Administration - Patient Studies Lab Studies: Microbiology Studies 09/03/17 23:00 Blood Culture - Preliminary Blood NO GROWTH AFTER 48 HOURS 09/03/17 23:30 Blood Culture - Preliminary Blood NO GROWTH AFTER 48 HOURS 09/05/17 20:00 Gram Stain - Final Trachasp 09/03/17 17:16 Gram Stain - Final Trachasp Sputum Culture - Final Yeast Species 08/30/17 00:15 Blood Culture - Final Blood NO GROWTH AFTER 5 DAYS Gram Stain - Final TEST NOT PERFORMED 08/30/17 23:05 Blood Culture - Final Blood NO GROWTH AFTER 5 DAYS Gram Stain - Final TEST NOT PERFORMED 09/03/17 Unknown Urine Culture - Final Urine No Growth (<1,000 CFU/ML) Lab Studies 09/06/17 09/06/17 09/06/17 Range/Units 06:30 06:28 06:14 WBC 19.4 H (4.8-10.8) K/uL RBC 3.96 (3.80-5.20) Mil/uL Hgb 8.9 L (11.0-16.0) g/dL Hct 30.5 L (34.0-47.0) % MCV 76.9 L (81.0-99.0) fL MCH 22.4 L (27.0-31.0) pg MCHC 29.1 L (33.0-37.0) g/dL RDW 23.0 H (11.5-14.5) % Plt Count 291 (130-400) K/uL MPV 9.1 (7.2-11.7) fL Neut % (Auto) 88.4 H (50.0-75.0) % Lymph % (Auto) 1.7 L (20.0-40.0) % [place] % (Auto) 9.9 (0.0-10.0) % Eos % (Auto) 0.0 (0.0-4.0) % Baso % (Auto) 0.0 (0.0-2.0) % Neut # (Auto) 17.2 H (1.8-7.0) K/uL Lymph # (Auto) 0.3 L (1.0-4.3) K/uL [place] # (Auto) 1.9 H (0.0-0.8) K/uL Eos # (Auto) 0.0 (0.0-0.7) K/uL Baso # (Auto) 0.0 (0.0-0.2) K/uL Neutrophils % (Manual) 87 H (50-75) % Band Neutrophils % 1 (0-2) % Lymphocytes % (Manual) 5 L (20-40) % Monocytes % (Manual) 7 (0-10) % Nucleated RBC % 4 H (0-0) % Platelet Estimate Normal (NORMAL) Polychromasia Slight Hypochromasia (manual) Slight Poikilocytosis (manual Slight Anisocytosis (manual) Slight Microcytosis (manual) Slight Tear Drop Cells Slight Ovalocytes Slight [place]anne Cells Puncture Site pCO2 (35-45) mm/Hg pO2 (80-100) mm/Hg HCO3 (21-28) mmol/L ABG pH (7.35-7.45) ABG Total CO2 (22-28) mmol/L ABG O2 Saturation (95-98) % ABG Base Excess (-2.0-3.0) mmol/L ABG Hemoglobin (11.7-17.4) g/dL ABG Carboxyhemoglobin (0.5-1.5) % POC ABG HHb (Measured) (0.0-5.0) % ABG Methemoglobin (0.0-3.0) % Bill Test A-a O2 Difference mm/Hg Respiratory Index Hgb O2 Saturation (95.0-98.0) % Vent Mode Mechanical Rate FiO2 % Tidal Volume PEEP Pressure Support CPAP Sodium 161 H* (132-148) mmol/L Potassium 4.2 (3.6-5.2) mmol/L Chloride 118 H (98-107) mmol/L Carbon Dioxide 36 H (22-30) mmol/L Anion Gap 11 (10-20) BUN 44 H (7-17) mg/dL Creatinine 0.8 (0.7-1.2) mg/dL Est GFR ( Amer) > 60 Est GFR (Non-Af Amer) > 60 POC Glucose (mg/dL) 261 H (65-110) mg/dL Random Glucose 235 H (65-105) mg/dL Calcium 8.5 L (8.6-10.4) mg/dl Phosphorus (2.5-4.5) mg/dL Magnesium (1.6-2.3) mg/dL Total Bilirubin 0.3 (0.2-1.3) mg/dL AST 70 H D (14-36) U/L ALT 101 H (9-52) U/L Alkaline Phosphatase 84 (38-126) U/L Total Protein 5.9 L (6.3-8.3) g/dL Albumin 3.0 L (3.5-5.0) g/dL Globulin 2.9 (2.2-3.9) gm/dL Albumin/Globulin Ratio 1.0 (1.0-2.1) C. difficile Ag & Toxin (NEGATIVE) 09/06/17 09/05/17 09/05/17 Range/Units 05:30 Unknown 23:49 WBC (4.8-10.8) K/uL RBC (3.80-5.20) Mil/uL Hgb (11.0-16.0) g/dL Hct (34.0-47.0) % MCV (81.0-99.0) fL MCH (27.0-31.0) pg MCHC (33.0-37.0) g/dL RDW (11.5-14.5) % Plt Count (130-400) K/uL MPV (7.2-11.7) fL Neut % (Auto) (50.0-75.0) % Lymph % (Auto) (20.0-40.0) % [place] % (Auto) (0.0-10.0) % Eos % (Auto) (0.0-4.0) % Baso % (Auto) (0.0-2.0) % Neut # (Auto) (1.8-7.0) K/uL Lymph # (Auto) (1.0-4.3) K/uL [place] # (Auto) (0.0-0.8) K/uL Eos # (Auto) (0.0-0.7) K/uL Baso # (Auto) (0.0-0.2) K/uL Neutrophils % (Manual) (50-75) % Band Neutrophils % (0-2) % Lymphocytes % (Manual) (20-40) % Monocytes % (Manual) (0-10) % Nucleated RBC % (0-0) % Platelet Estimate (NORMAL) Polychromasia Hypochromasia (manual) Poikilocytosis (manual Anisocytosis (manual) Microcytosis (manual) Tear Drop Cells Ovalocytes [place] Cells Puncture Site Lr pCO2 50 H (35-45) mm/Hg pO2 86 (80-100) mm/Hg HCO3 31.8 H (21-28) mmol/L ABG pH 7.44 (7.35-7.45) ABG Total CO2 35.5 H (22-28) mmol/L ABG O2 Saturation 98.5 H (95-98) % ABG Base Excess 8.8 H (-2.0-3.0) mmol/L ABG Hemoglobin 8.9 L (11.7-17.4) g/dL ABG Carboxyhemoglobin 2.1 H (0.5-1.5) % POC ABG HHb (Measured) 1.5 (0.0-5.0) % ABG Methemoglobin 0.8 (0.0-3.0) % Bill Test Pos A-a O2 Difference 208.0 mm/Hg Respiratory Index 2.4 Hgb O2 Saturation 95.6 (95.0-98.0) % Vent Mode Prvc Mechanical Rate 18 FiO2 50.0 % Tidal Volume 500 PEEP 5 Pressure Support CPAP Sodium (132-148) mmol/L Potassium (3.6-5.2) mmol/L Chloride (98-107) mmol/L Carbon Dioxide (22-30) mmol/L Anion Gap (10-20) BUN (7-17) mg/dL Creatinine (0.7-1.2) mg/dL Est GFR ( Amer) Est GFR (Non-Af Amer) POC Glucose (mg/dL) 252 H (65-110) mg/dL Random Glucose (65-105) mg/dL Calcium (8.6-10.4) mg/dl Phosphorus (2.5-4.5) mg/dL Magnesium (1.6-2.3) mg/dL Total Bilirubin (0.2-1.3) mg/dL AST (14-36) U/L ALT (9-52) U/L Alkaline Phosphatase (38-126) U/L Total Protein (6.3-8.3) g/dL Albumin (3.5-5.0) g/dL Globulin (2.2-3.9) gm/dL Albumin/Globulin Ratio (1.0-2.1) C. difficile Ag & Toxin Negative (NEGATIVE) 09/05/17 09/05/17 09/05/17 Range/Units 20:39 20:37 17:56 WBC 20.1 H (4.8-10.8) K/uL RBC 4.24 (3.80-5.20) Mil/uL Hgb 9.6 L (11.0-16.0) g/dL Hct 32.5 L (34.0-47.0) % MCV 76.7 L (81.0-99.0) fL MCH 22.6 L (27.0-31.0) pg MCHC 29.5 L (33.0-37.0) g/dL RDW 22.5 H (11.5-14.5) % Plt Count 269 (130-400) K/uL MPV 8.7 (7.2-11.7) fL Neut % (Auto) 93.3 H (50.0-75.0) % Lymph % (Auto) 1.2 L (20.0-40.0) % [place] % (Auto) 5.5 (0.0-10.0) % Eos % (Auto) 0.0 (0.0-4.0) % Baso % (Auto) 0.0 (0.0-2.0) % Neut # (Auto) 18.7 H (1.8-7.0) K/uL Lymph # (Auto) 0.2 L (1.0-4.3) K/uL [place] # (Auto) 1.1 H (0.0-0.8) K/uL Eos # (Auto) 0.0 (0.0-0.7) K/uL Baso # (Auto) 0.0 (0.0-0.2) K/uL Neutrophils % (Manual) 92 H (50-75) % Band Neutrophils % (0-2) % Lymphocytes % (Manual) 2 L (20-40) % Monocytes % (Manual) 6 (0-10) % Nucleated RBC % (0-0) % Platelet Estimate Normal (NORMAL) Polychromasia Slight Hypochromasia (manual) Moderate Poikilocytosis (manual Anisocytosis (manual) Slight Microcytosis (manual) Slight Tear Drop Cells Slight Ovalocytes Slight [place] Cells Slight Puncture Site pCO2 (35-45) mm/Hg pO2 (80-100) mm/Hg HCO3 (21-28) mmol/L ABG pH (7.35-7.45) ABG Total CO2 (22-28) mmol/L ABG O2 Saturation (95-98) % ABG Base Excess (-2.0-3.0) mmol/L ABG Hemoglobin (11.7-17.4) g/dL ABG Carboxyhemoglobin (0.5-1.5) % POC ABG HHb (Measured) (0.0-5.0) % ABG Methemoglobin (0.0-3.0) % Bill Test A-a O2 Difference mm/Hg Respiratory Index Hgb O2 Saturation (95.0-98.0) % Vent Mode Mechanical Rate FiO2 % Tidal Volume PEEP Pressure Support CPAP Sodium 159 H (132-148) mmol/L Potassium 3.5 L (3.6-5.2) mmol/L Chloride 117 H (98-107) mmol/L Carbon Dioxide 33 H (22-30) mmol/L Anion Gap 12 (10-20) BUN 39 H (7-17) mg/dL Creatinine 0.8 (0.7-1.2) mg/dL Est GFR ( Amer) > 60 Est GFR (Non-Af Amer) > 60 POC Glucose (mg/dL) 201 H (65-110) mg/dL Random Glucose 252 H (65-105) mg/dL Calcium 8.3 L (8.6-10.4) mg/dl Phosphorus 4.2 (2.5-4.5) mg/dL Magnesium 2.9 H (1.6-2.3) mg/dL Total Bilirubin 0.5 (0.2-1.3) mg/dL AST 42 H (14-36) U/L ALT 90 H (9-52) U/L Alkaline Phosphatase 79 (38-126) U/L Total Protein 6.3 (6.3-8.3) g/dL Albumin 3.2 L (3.5-5.0) g/dL Globulin 3.1 (2.2-3.9) gm/dL Albumin/Globulin Ratio 1.0 (1.0-2.1) C. difficile Ag & Toxin (NEGATIVE) 09/05/17 09/05/17 Range/Units 14:31 11:26 WBC (4.8-10.8) K/uL RBC (3.80-5.20) Mil/uL Hgb (11.0-16.0) g/dL Hct (34.0-47.0) % MCV (81.0-99.0) fL MCH (27.0-31.0) pg MCHC (33.0-37.0) g/dL RDW (11.5-14.5) % Plt Count (130-400) K/uL MPV (7.2-11.7) fL Neut % (Auto) (50.0-75.0) % Lymph % (Auto) (20.0-40.0) % [place] % (Auto) (0.0-10.0) % Eos % (Auto) (0.0-4.0) % Baso % (Auto) (0.0-2.0) % Neut # (Auto) (1.8-7.0) K/uL Lymph # (Auto) (1.0-4.3) K/uL [place] # (Auto) (0.0-0.8) K/uL Eos # (Auto) (0.0-0.7) K/uL Baso # (Auto) (0.0-0.2) K/uL Neutrophils % (Manual) (50-75) % Band Neutrophils % (0-2) % Lymphocytes % (Manual) (20-40) % Monocytes % (Manual) (0-10) % Nucleated RBC % (0-0) % Platelet Estimate (NORMAL) Polychromasia Hypochromasia (manual) Poikilocytosis (manual Anisocytosis (manual) Microcytosis (manual) Tear Drop Cells Ovalocytes [place] Cells Puncture Site Rba pCO2 44 (35-45) mm/Hg pO2 61 L (80-100) mm/Hg HCO3 30.1 H (21-28) mmol/L ABG pH 7.46 H (7.35-7.45) ABG Total CO2 32.7 H (22-28) mmol/L ABG O2 Saturation 94.9 L (95-98) % ABG Base Excess 6.7 H (-2.0-3.0) mmol/L ABG Hemoglobin 9.3 L (11.7-17.4) g/dL ABG Carboxyhemoglobin 2.1 H (0.5-1.5) % POC ABG HHb (Measured) 5.0 (0.0-5.0) % ABG Methemoglobin 0.7 (0.0-3.0) % Bill Test Na A-a O2 Difference 169.0 mm/Hg Respiratory Index 2.8 Hgb O2 Saturation 92.2 L (95.0-98.0) % Vent Mode Cpap Mechanical Rate FiO2 40.0 % Tidal Volume PEEP Pressure Support 15 CPAP 5 Sodium (132-148) mmol/L Potassium (3.6-5.2) mmol/L Chloride (98-107) mmol/L Carbon Dioxide (22-30) mmol/L Anion Gap (10-20) BUN (7-17) mg/dL Creatinine (0.7-1.2) mg/dL Est GFR ( Amer) Est GFR (Non-Af Amer) POC Glucose (mg/dL) 263 H (65-110) mg/dL Random Glucose (65-105) mg/dL Calcium (8.6-10.4) mg/dl Phosphorus (2.5-4.5) mg/dL Magnesium (1.6-2.3) mg/dL Total Bilirubin (0.2-1.3) mg/dL AST (14-36) U/L ALT (9-52) U/L Alkaline Phosphatase (38-126) U/L Total Protein (6.3-8.3) g/dL Albumin (3.5-5.0) g/dL Globulin (2.2-3.9) gm/dL Albumin/Globulin Ratio (1.0-2.1) C. difficile Ag & Toxin (NEGATIVE) Laboratory Results - last 24 hr 09/05/17 09/05/17 09/05/17 11:26 14:31 17:56 WBC RBC Hgb Hct MCV MCH MCHC RDW Plt Count MPV Neut % (Auto) Lymph % (Auto) [place] % (Auto) Eos % (Auto) Baso % (Auto) Neut # (Auto) Lymph # (Auto) [place] # (Auto) Eos # (Auto) Baso # (Auto) Neutrophils % (Manual) Band Neutrophils % Lymphocytes % (Manual) Monocytes % (Manual) Nucleated RBC % Platelet Estimate Polychromasia Hypochromasia (manual) Poikilocytosis (manual Anisocytosis (manual) Microcytosis (manual) Tear Drop Cells Ovalocytes [place] Cells Puncture Site Rba pCO2 44 pO2 61 L HCO3 30.1 H ABG pH 7.46 H ABG Total CO2 32.7 H ABG O2 Saturation 94.9 L ABG Base Excess 6.7 H ABG Hemoglobin 9.3 L ABG Carboxyhemoglobin 2.1 H POC ABG HHb (Measured) 5.0 ABG Methemoglobin 0.7 Bill Test Na A-a O2 Difference 169.0 Respiratory Index 2.8 Hgb O2 Saturation 92.2 L Vent Mode Cpap Mechanical Rate FiO2 40.0 Tidal Volume PEEP Pressure Support 15 CPAP 5 Sodium Potassium Chloride Carbon Dioxide Anion Gap BUN Creatinine Est GFR ( Amer) Est GFR (Non-Af Amer) POC Glucose (mg/dL) 263 H 201 H Random Glucose Calcium Phosphorus Magnesium Total Bilirubin AST ALT Alkaline Phosphatase Total Protein Albumin Globulin Albumin/Globulin Ratio C. difficile Ag & Toxin 09/05/17 09/05/17 09/05/17 20:37 20:39 23:49 WBC 20.1 H RBC 4.24 Hgb 9.6 L Hct 32.5 L MCV 76.7 L MCH 22.6 L MCHC 29.5 L RDW 22.5 H Plt Count 269 MPV 8.7 Neut % (Auto) 93.3 H Lymph % (Auto) 1.2 L [place] % (Auto) 5.5 Eos % (Auto) 0.0 Baso % (Auto) 0.0 Neut # (Auto) 18.7 H Lymph # (Auto) 0.2 L [place] # (Auto) 1.1 H Eos # (Auto) 0.0 Baso # (Auto) 0.0 Neutrophils % (Manual) 92 H Band Neutrophils % Lymphocytes % (Manual) 2 L Monocytes % (Manual) 6 Nucleated RBC % Platelet Estimate Normal Polychromasia Slight Hypochromasia (manual) Moderate Poikilocytosis (manual Anisocytosis (manual) Slight Microcytosis (manual) Slight Tear Drop Cells Slight Ovalocytes Slight [place] Cells Slight Puncture Site pCO2 pO2 HCO3 ABG pH ABG Total CO2 ABG O2 Saturation ABG Base Excess ABG Hemoglobin ABG Carboxyhemoglobin POC ABG HHb (Measured) ABG Methemoglobin Bill Test A-a O2 Difference Respiratory Index Hgb O2 Saturation Vent Mode Mechanical Rate FiO2 Tidal Volume PEEP Pressure Support CPAP Sodium 159 H Potassium 3.5 L Chloride 117 H Carbon Dioxide 33 H Anion Gap 12 BUN 39 H Creatinine 0.8 Est GFR ( Amer) > 60 Est GFR (Non-Af Amer) > 60 POC Glucose (mg/dL) 252 H Random Glucose 252 H Calcium 8.3 L Phosphorus 4.2 Magnesium 2.9 H Total Bilirubin 0.5 AST 42 H ALT 90 H Alkaline Phosphatase 79 Total Protein 6.3 Albumin 3.2 L Globulin 3.1 Albumin/Globulin Ratio 1.0 C. difficile Ag & Toxin 09/05/17 09/06/17 09/06/17 Unknown 05:30 06:14 WBC RBC Hgb Hct MCV MCH MCHC RDW Plt Count MPV Neut % (Auto) Lymph % (Auto) [place] % (Auto) Eos % (Auto) Baso % (Auto) Neut # (Auto) Lymph # (Auto) [place] # (Auto) Eos # (Auto) Baso # (Auto) Neutrophils % (Manual) Band Neutrophils % Lymphocytes % (Manual) Monocytes % (Manual) Nucleated RBC % Platelet Estimate Polychromasia Hypochromasia (manual) Poikilocytosis (manual Anisocytosis (manual) Microcytosis (manual) Tear Drop Cells Ovalocytes [place] Cells Puncture Site Lr pCO2 50 H pO2 86 HCO3 31.8 H ABG pH 7.44 ABG Total CO2 35.5 H ABG O2 Saturation 98.5 H ABG Base Excess 8.8 H ABG Hemoglobin 8.9 L ABG Carboxyhemoglobin 2.1 H POC ABG HHb (Measured) 1.5 ABG Methemoglobin 0.8 Bill Test Pos A-a O2 Difference 208.0 Respiratory Index 2.4 Hgb O2 Saturation 95.6 Vent Mode Prvc Mechanical Rate 18 FiO2 50.0 Tidal Volume 500 PEEP 5 Pressure Support CPAP Sodium Potassium Chloride Carbon Dioxide Anion Gap BUN Creatinine Est GFR ( Amer) Est GFR (Non-Af Amer) POC Glucose (mg/dL) 261 H Random Glucose Calcium Phosphorus Magnesium Total Bilirubin AST ALT Alkaline Phosphatase Total Protein Albumin Globulin Albumin/Globulin Ratio C. difficile Ag & Toxin Negative 09/06/17 09/06/17 06:28 06:30 WBC 19.4 H RBC 3.96 Hgb 8.9 L Hct 30.5 L MCV 76.9 L MCH 22.4 L MCHC 29.1 L RDW 23.0 H Plt Count 291 MPV 9.1 Neut % (Auto) 88.4 H Lymph % (Auto) 1.7 L [place] % (Auto) 9.9 Eos % (Auto) 0.0 Baso % (Auto) 0.0 Neut # (Auto) 17.2 H Lymph # (Auto) 0.3 L [place] # (Auto) 1.9 H Eos # (Auto) 0.0 Baso # (Auto) 0.0 Neutrophils % (Manual) 87 H Band Neutrophils % 1 Lymphocytes % (Manual) 5 L Monocytes % (Manual) 7 Nucleated RBC % 4 H Platelet Estimate Normal Polychromasia Slight Hypochromasia (manual) Slight Poikilocytosis (manual Slight Anisocytosis (manual) Slight Microcytosis (manual) Slight Tear Drop Cells Slight Ovalocytes Slight [place] Cells Puncture Site pCO2 pO2 HCO3 ABG pH ABG Total CO2 ABG O2 Saturation ABG Base Excess ABG Hemoglobin ABG Carboxyhemoglobin POC ABG HHb (Measured) ABG Methemoglobin Bill Test A-a O2 Difference Respiratory Index Hgb O2 Saturation Vent Mode Mechanical Rate FiO2 Tidal Volume PEEP Pressure Support CPAP Sodium 161 H* Potassium 4.2 Chloride 118 H Carbon Dioxide 36 H Anion Gap 11 BUN 44 H Creatinine 0.8 Est GFR ( Amer) > 60 Est GFR (Non-Af Amer) > 60 POC Glucose (mg/dL) Random Glucose 235 H Calcium 8.5 L Phosphorus Magnesium Total Bilirubin 0.3 AST 70 H D ALT 101 H Alkaline Phosphatase 84 Total Protein 5.9 L Albumin 3.0 L Globulin 2.9 Albumin/Globulin Ratio 1.0 C. difficile Ag & Toxin EKG/Cardiology Studies: Cardiology / EKG Studies 09/05/17 10:30 EKG [ELECTROCARDIOGRAM] DAILY Comment: Mode Of Transportation: Reason For Exam: qtc 09/06/17 10:30 EKG [ELECTROCARDIOGRAM] DAILY Comment: Mode Of Transportation: Reason For Exam: qtc Fingerstick Blood Sugar Results: 261 Review of Systems - Review of Systems Systems not reviewed;Unavailable: Acuity of Condition Assessment/Plan - Assessment and Plan (Free Text) Plan: Neurology: anxiety, neuropathy - Diprivan 1000mg qd for sedation @ 15.556 ml/hr - APAP 650mg/20.3ml soln UD q4 PRN and follow temperature (continue cooling blanket PRN) - Ultram 25mg PO BID Cardiology: CHF (worsening EF; recs per cardiology) - Milrinone 1mg/ml IVP x1 - Milrinone 20mg Dextrose 5% in water @ 0.43mcg/kg/min, 8.53 ml/hr IV [id number] - Lopressor 25mg PO BID - Cardizem 60mg PO q6h - check QTc x5d -Check cvp - ASA 81mg PO qd Pulmonary: AECOPD, PNA, emphysema, asthma - Order serologies for Mycoplasma and Legionella IgM - Trial CPAP at 5 and 30 pressure support titrate to sats >92%. - FiO2 40%, rate 16, spontaneous Vt 550-670 - Solu-Medrol 20mg IVP q12h - Zosyn 3.375g IV @ 100ml/hr IVPB q8h GI: Cdiff precaution - C diff results negative Endocrinology: DM2 - Change Novolog 3u q6h to high sliding scale - accuchecks blood sugar levels q4h Nephrology: CKD - continue following I/O and kidney function tests - order CVP and VBG shock panel, check lactate and pro-calcitonin levels - monitor Na levels closely ID: sepsis - Procal levels ordered .Will f/u with results. -Legionella, Mycoplasma IgM ordered. Will f/u with results. -VBG(Shock panel) ordered. Will f/u with results. PPx: - unable to place PICC; continue R IJ - heparin 5000U sc q12 - Protonix 40mg IVP qd- KCl 20mEq/100ml @ 50ml/hr IVPB x1 <Rey Da Silva S - Last Filed: 09/06/17 18:21> CCU Objective - Vital Signs / Intake & Output Vital Signs (Last 4 hours): Vital Signs Temp Pulse Resp BP Pulse Ox 09/06/17 18:13 110 H 19 110/60 96 09/06/17 17:22 112/52 L 09/06/17 17:01 107 H 18 95 09/06/17 17:00 112 H 19 112/52 L 96 09/06/17 16:01 114 H 19 95 09/06/17 16:00 100.5 F H 107 H 21 120/60 97 09/06/17 15:01 119 H 28 H 100 09/06/17 15:00 111 H 19 135/68 96 Intake and Output (Last 8hrs): Intake & Output 09/06/17 09/06/17 09/06/17 06:59 14:59 22:59 Intake Total 1003.8 633.3 298.9 Output Total 425 50 Balance 578.8 583.3 298.9 Weight 145 lb 15.136 oz Intake: IV 146.8 53.2 100 Intake, IV Amount 217.0 80.1 48.9 Right Distal Port 117.0 54.6 23.4 Internal Jugular Right Medial Port 100 Internal Jugular Right Proximal Port 25.5 25.5 Internal Jugular Tube Feeding 400 300 150 Other 240 200 Output: Urine 425 50 Urethral (Rico) 425 50 - Medications Active Medications: Active Medications Generic Name Dose Route Start Last Admin Trade Name Freq PRN Reason Stop Dose Admin Acetaminophen 650 mg 09/03/17 22:46 09/06/17 03:00 Tylenol 650mg/20.3ml Solution Ud PO 650 mg Q4 PRN Administration for temperature >101 F Albuterol/Ipratropium 3 ml 09/06/17 02:00 09/06/17 13:04 Duoneb 3 Mg/0.5 Mg (3 Ml) Ud INH 3 ml RQ6 JENNIFER Administration Aspirin 81 mg 09/02/17 10:30 09/06/17 09:18 Aspirin Chewable PO 81 mg DAILY JENNIFER Administration Heparin Sodium (Porcine) 5,000 units 09/02/17 22:00 09/06/17 09:18 Heparin SC 5,000 units Q12 JENNIFER Administration Propofol 1,000 mg in 100 mls @ 3.889 mls/hr 09/02/17 14:40 09/06/17 17:24 Diprivan IV 40 mcg/kg/min .Q24H PRN 15.556 mls/hr TITRATE PER MD ORDER Administration Protocol 10 MCG/KG/MIN Piperacillin Sod/Tazobactam 100 mls @ 200 mls/hr 09/04/17 00:45 09/06/17 18: 19 Sod 3.375 gm/ Sodium Chloride IVPB 200 mls/hr Q6H JENNIFER Administration Milrinone Lactate/Dextrose 20 100 mls @ 8.53 mls/hr 09/06/17 21:30 09/06/17 18:13 mg/ Sodium Chloride IV 8.53 mls/hr .[id number] JENNIFER Administration 0.43 MCG/KG/MIN Insulin Human Regular 0 unit 09/06/17 11:30 09/06/17 17:00 Novolin R SC 2 unit ACHS JENNIFER Administration Protocol Methylprednisolone 20 mg 09/05/17 18:00 09/06/17 18:16 Solu-Medrol IVP 20 mg BID JENNIFER Administration Metoprolol Tartrate 25 mg 09/06/17 10:00 09/06/17 17:22 Lopressor PO 25 mg BID JENNIFER Administration Pantoprazole Sodium 40 mg 09/02/17 10:45 09/06/17 09:18 Protonix Inj IVP 40 mg DAILY JENNIFER Administration Tramadol HCl 25 mg 09/05/17 18:00 09/06/17 17:23 Ultram PO 25 mg BID JENNIFER Administration - Patient Studies Lab Studies: Microbiology Studies 09/05/17 11:40 Blood Culture - Preliminary Blood NO GROWTH AFTER 24 HOURS 09/05/17 11:16 Blood Culture - Preliminary Blood NO GROWTH AFTER 24 HOURS 09/04/17 Unknown Gram Stain - Final Trachasp Sputum Culture - Final Yeast Species 09/03/17 23:00 Blood Culture - Preliminary Blood NO GROWTH AFTER 48 HOURS 09/03/17 23:30 Blood Culture - Preliminary Blood NO GROWTH AFTER 48 HOURS 09/05/17 20:00 Gram Stain - Final Trachasp Lab Studies 09/06/17 09/06/17 09/06/17 Range/Units 18:09 11:18 06:30 WBC 19.4 H (4.8-10.8) K/uL RBC 3.96 (3.80-5.20) Mil/uL Hgb 8.9 L (11.0-16.0) g/dL Hct 30.5 L (34.0-47.0) % MCV 76.9 L (81.0-99.0) fL MCH 22.4 L (27.0-31.0) pg MCHC 29.1 L (33.0-37.0) g/dL RDW 23.0 H (11.5-14.5) % Plt Count 291 (130-400) K/uL MPV 9.1 (7.2-11.7) fL Neut % (Auto) 88.4 H (50.0-75.0) % Lymph % (Auto) 1.7 L (20.0-40.0) % [place] % (Auto) 9.9 (0.0-10.0) % Eos % (Auto) 0.0 (0.0-4.0) % Baso % (Auto) 0.0 (0.0-2.0) % Neut # (Auto) 17.2 H (1.8-7.0) K/uL Lymph # (Auto) 0.3 L (1.0-4.3) K/uL [place] # (Auto) 1.9 H (0.0-0.8) K/uL Eos # (Auto) 0.0 (0.0-0.7) K/uL Baso # (Auto) 0.0 (0.0-0.2) K/uL Neutrophils % (Manual) 87 H (50-75) % Band Neutrophils % 1 (0-2) % Lymphocytes % (Manual) 5 L (20-40) % Monocytes % (Manual) 7 (0-10) % Nucleated RBC % 4 H (0-0) % Platelet Estimate Normal (NORMAL) Polychromasia Slight Hypochromasia (manual) Slight Poikilocytosis (manual Slight Anisocytosis (manual) Slight Microcytosis (manual) Slight Tear Drop Cells Slight Ovalocytes Slight [place] Cells Puncture Site pCO2 (35-45) mm/Hg pO2 (80-100) mm/Hg HCO3 (21-28) mmol/L ABG pH (7.35-7.45) ABG Total CO2 (22-28) mmol/L ABG O2 Saturation (95-98) % ABG Base Excess (-2.0-3.0) mmol/L ABG Hemoglobin (11.7-17.4) g/dL ABG Carboxyhemoglobin (0.5-1.5) % POC ABG HHb (Measured) (0.0-5.0) % ABG Methemoglobin (0.0-3.0) % Bill Test A-a O2 Difference mm/Hg Respiratory Index Hgb O2 Saturation (95.0-98.0) % Vent Mode Mechanical Rate FiO2 % [place] Volume PEEP Sodium (132-148) mmol/L Potassium (3.6-5.2) mmol/L Chloride (98-107) mmol/L Carbon Dioxide (22-30) mmol/L Anion Gap (10-20) BUN (7-17) mg/dL Creatinine (0.7-1.2) mg/dL Est GFR ( Amer) Est GFR (Non-Af Amer) POC Glucose (mg/dL) 176 H 221 H (65-110) mg/dL Random Glucose (65-105) mg/dL Calcium (8.6-10.4) mg/dl Phosphorus (2.5-4.5) mg/dL Magnesium (1.6-2.3) mg/dL Total Bilirubin (0.2-1.3) mg/dL AST (14-36) U/L ALT (9-52) U/L Alkaline Phosphatase (38-126) U/L Total Protein (6.3-8.3) g/dL Albumin (3.5-5.0) g/dL Globulin (2.2-3.9) gm/dL Albumin/Globulin Ratio (1.0-2.1) 09/06/17 09/06/17 09/06/17 Range/Units 06:28 06:14 05:30 WBC (4.8-10.8) K/uL RBC (3.80-5.20) Mil/uL Hgb (11.0-16.0) g/dL Hct (34.0-47.0) % MCV (81.0-99.0) fL MCH (27.0-31.0) pg MCHC (33.0-37.0) g/dL RDW (11.5-14.5) % Plt Count (130-400) K/uL MPV (7.2-11.7) fL Neut % (Auto) (50.0-75.0) % Lymph % (Auto) (20.0-40.0) % [place] % (Auto) (0.0-10.0) % Eos % (Auto) (0.0-4.0) % Baso % (Auto) (0.0-2.0) % Neut # (Auto) (1.8-7.0) K/uL Lymph # (Auto) (1.0-4.3) K/uL [place] # (Auto) (0.0-0.8) K/uL Eos # (Auto) (0.0-0.7) K/uL Baso # (Auto) (0.0-0.2) K/uL Neutrophils % (Manual) (50-75) % Band Neutrophils % (0-2) % Lymphocytes % (Manual) (20-40) % Monocytes % (Manual) (0-10) % Nucleated RBC % (0-0) % Platelet Estimate (NORMAL) Polychromasia Hypochromasia (manual) Poikilocytosis (manual Anisocytosis (manual) Microcytosis (manual) Tear Drop Cells Ovalocytes [place] Cells Puncture Site Lr pCO2 50 H (35-45) mm/Hg pO2 86 (80-100) mm/Hg HCO3 31.8 H (21-28) mmol/L ABG pH 7.44 (7.35-7.45) ABG Total CO2 35.5 H (22-28) mmol/L ABG O2 Saturation 98.5 H (95-98) % ABG Base Excess 8.8 H (-2.0-3.0) mmol/L ABG Hemoglobin 8.9 L (11.7-17.4) g/dL ABG Carboxyhemoglobin 2.1 H (0.5-1.5) % POC ABG HHb (Measured) 1.5 (0.0-5.0) % ABG Methemoglobin 0.8 (0.0-3.0) % Bill Test Pos A-a O2 Difference 208.0 mm/Hg Respiratory Index 2.4 Hgb O2 Saturation 95.6 (95.0-98.0) % Vent Mode Prvc Mechanical Rate 18 FiO2 50.0 % Tidal Volume 500 PEEP 5 Sodium 161 H* (132-148) mmol/L Potassium 4.2 (3.6-5.2) mmol/L Chloride 118 H (98-107) mmol/L Carbon Dioxide 36 H (22-30) mmol/L Anion Gap 11 (10-20) BUN 44 H (7-17) mg/dL Creatinine 0.8 (0.7-1.2) mg/dL Est GFR ( Amer) > 60 Est GFR (Non-Af Amer) > 60 POC Glucose (mg/dL) 261 H (65-110) mg/dL Random Glucose 235 H (65-105) mg/dL Calcium 8.5 L (8.6-10.4) mg/dl Phosphorus (2.5-4.5) mg/dL Magnesium (1.6-2.3) mg/dL Total Bilirubin 0.3 (0.2-1.3) mg/dL AST 70 H D (14-36) U/L ALT 101 H (9-52) U/L Alkaline Phosphatase 84 (38-126) U/L Total Protein 5.9 L (6.3-8.3) g/dL Albumin 3.0 L (3.5-5.0) g/dL Globulin 2.9 (2.2-3.9) gm/dL Albumin/Globulin Ratio 1.0 (1.0-2.1) 09/05/17 09/05/17 09/05/17 Range/Units 23:49 20:39 20:37 WBC 20.1 H (4.8-10.8) K/uL RBC 4.24 (3.80-5.20) Mil/uL Hgb 9.6 L (11.0-16.0) g/dL Hct 32.5 L (34.0-47.0) % MCV 76.7 L (81.0-99.0) fL MCH 22.6 L (27.0-31.0) pg MCHC 29.5 L (33.0-37.0) g/dL RDW 22.5 H (11.5-14.5) % Plt Count 269 (130-400) K/uL MPV 8.7 (7.2-11.7) fL Neut % (Auto) 93.3 H (50.0-75.0) % Lymph % (Auto) 1.2 L (20.0-40.0) % [place] % (Auto) 5.5 (0.0-10.0) % Eos % (Auto) 0.0 (0.0-4.0) % Baso % (Auto) 0.0 (0.0-2.0) % Neut # (Auto) 18.7 H (1.8-7.0) K/uL Lymph # (Auto) 0.2 L (1.0-4.3) K/uL [place] # (Auto) 1.1 H (0.0-0.8) K/uL Eos # (Auto) 0.0 (0.0-0.7) K/uL Baso # (Auto) 0.0 (0.0-0.2) K/uL Neutrophils % (Manual) 92 H (50-75) % Band Neutrophils % (0-2) % Lymphocytes % (Manual) 2 L (20-40) % Monocytes % (Manual) 6 (0-10) % Nucleated RBC % (0-0) % Platelet Estimate Normal (NORMAL) Polychromasia Slight Hypochromasia (manual) Moderate Poikilocytosis (manual Anisocytosis (manual) Slight Microcytosis (manual) Slight Tear Drop Cells Slight Ovalocytes Slight [place] Cells Slight Puncture Site pCO2 (35-45) mm/Hg pO2 (80-100) mm/Hg HCO3 (21-28) mmol/L ABG pH (7.35-7.45) ABG Total CO2 (22-28) mmol/L ABG O2 Saturation (95-98) % ABG Base Excess (-2.0-3.0) mmol/L ABG Hemoglobin (11.7-17.4) g/dL ABG Carboxyhemoglobin (0.5-1.5) % POC ABG HHb (Measured) (0.0-5.0) % ABG Methemoglobin (0.0-3.0) % Bill Test A-a O2 Difference mm/Hg Respiratory Index Hgb O2 Saturation (95.0-98.0) % Vent Mode Mechanical Rate FiO2 % Tidal Volume PEEP Sodium 159 H (132-148) mmol/L Potassium 3.5 L (3.6-5.2) mmol/L Chloride 117 H (98-107) mmol/L Carbon Dioxide 33 H (22-30) mmol/L Anion Gap 12 (10-20) BUN 39 H (7-17) mg/dL Creatinine 0.8 (0.7-1.2) mg/dL Est GFR ( Amer) > 60 Est GFR (Non-Af Amer) > 60 POC Glucose (mg/dL) 252 H (65-110) mg/dL Random Glucose 252 H (65-105) mg/dL Calcium 8.3 L (8.6-10.4) mg/dl Phosphorus 4.2 (2.5-4.5) mg/dL Magnesium 2.9 H (1.6-2.3) mg/dL Total Bilirubin 0.5 (0.2-1.3) mg/dL AST 42 H (14-36) U/L ALT 90 H (9-52) U/L Alkaline Phosphatase 79 (38-126) U/L Total Protein 6.3 (6.3-8.3) g/dL Albumin 3.2 L (3.5-5.0) g/dL Globulin 3.1 (2.2-3.9) gm/dL Albumin/Globulin Ratio 1.0 (1.0-2.1) Laboratory Results - last 24 hr 09/05/17 09/05/17 09/05/17 20:37 20:39 23:49 WBC 20.1 H RBC 4.24 Hgb 9.6 L Hct 32.5 L MCV 76.7 L MCH 22.6 L MCHC 29.5 L RDW 22.5 H Plt Count 269 MPV 8.7 Neut % (Auto) 93.3 H Lymph % (Auto) 1.2 L [place] % (Auto) 5.5 Eos % (Auto) 0.0 Baso % (Auto) 0.0 Neut # (Auto) 18.7 H Lymph # (Auto) 0.2 L [place] # (Auto) 1.1 H Eos # (Auto) 0.0 Baso # (Auto) 0.0 Neutrophils % (Manual) 92 H Band Neutrophils % Lymphocytes % (Manual) 2 L Monocytes % (Manual) 6 Nucleated RBC % Platelet Estimate Normal Polychromasia Slight Hypochromasia (manual) Moderate Poikilocytosis (manual Anisocytosis (manual) Slight Microcytosis (manual) Slight Tear Drop Cells Slight Ovalocytes Slight [place] Cells Slight Puncture Site pCO2 pO2 HCO3 ABG pH ABG Total CO2 ABG O2 Saturation ABG Base Excess ABG Hemoglobin ABG Carboxyhemoglobin POC ABG HHb (Measured) ABG Methemoglobin Bill Test A-a O2 Difference Respiratory Index Hgb O2 Saturation Vent Mode Mechanical Rate FiO2 Tidal Volume PEEP Sodium 159 H Potassium 3.5 L Chloride 117 H Carbon Dioxide 33 H Anion Gap 12 BUN 39 H Creatinine 0.8 Est GFR ( Amer) > 60 Est GFR (Non-Af Amer) > 60 POC Glucose (mg/dL) 252 H Random Glucose 252 H Calcium 8.3 L Phosphorus 4.2 Magnesium 2.9 H Total Bilirubin 0.5 AST 42 H ALT 90 H Alkaline Phosphatase 79 Total Protein 6.3 Albumin 3.2 L Globulin 3.1 Albumin/Globulin Ratio 1.0 09/06/17 09/06/17 09/06/17 05:30 06:14 06:28 WBC RBC Hgb Hct MCV MCH MCHC RDW Plt Count MPV Neut % (Auto) Lymph % (Auto) [place] % (Auto) Eos % (Auto) Baso % (Auto) Neut # (Auto) Lymph # (Auto) [place] # (Auto) Eos # (Auto) Baso # (Auto) Neutrophils % (Manual) Band Neutrophils % Lymphocytes % (Manual) Monocytes % (Manual) Nucleated RBC % Platelet Estimate Polychromasia Hypochromasia (manual) Poikilocytosis (manual Anisocytosis (manual) Microcytosis (manual) Tear Drop Cells Ovalocytes [place] Cells Puncture Site Lr pCO2 50 H pO2 86 HCO3 31.8 H ABG pH 7.44 ABG Total CO2 35.5 H ABG O2 Saturation 98.5 H ABG Base Excess 8.8 H ABG Hemoglobin 8.9 L ABG Carboxyhemoglobin 2.1 H POC ABG HHb (Measured) 1.5 ABG Methemoglobin 0.8 Bill Test Pos A-a O2 Difference 208.0 Respiratory Index 2.4 Hgb O2 Saturation 95.6 Vent Mode Prvc Mechanical Rate 18 FiO2 50.0 Tidal Volume 500 PEEP 5 Sodium 161 H* Potassium 4.2 Chloride 118 H Carbon Dioxide 36 H Anion Gap 11 BUN 44 H Creatinine 0.8 Est GFR ( Amer) > 60 Est GFR (Non-Af Amer) > 60 POC Glucose (mg/dL) 261 H Random Glucose 235 H Calcium 8.5 L Phosphorus Magnesium Total Bilirubin 0.3 AST 70 H D ALT 101 H Alkaline Phosphatase 84 Total Protein 5.9 L Albumin 3.0 L Globulin 2.9 Albumin/Globulin Ratio 1.0 09/06/17 09/06/17 09/06/17 06:30 11:18 18:09 WBC 19.4 H RBC 3.96 Hgb 8.9 L Hct 30.5 L MCV 76.9 L MCH 22.4 L MCHC 29.1 L RDW 23.0 H Plt Count 291 MPV 9.1 Neut % (Auto) 88.4 H Lymph % (Auto) 1.7 L [place] % (Auto) 9.9 Eos % (Auto) 0.0 Baso % (Auto) 0.0 Neut # (Auto) 17.2 H Lymph # (Auto) 0.3 L [place] # (Auto) 1.9 H Eos # (Auto) 0.0 Baso # (Auto) 0.0 Neutrophils % (Manual) 87 H Band Neutrophils % 1 Lymphocytes % (Manual) 5 L Monocytes % (Manual) 7 Nucleated RBC % 4 H Platelet Estimate Normal Polychromasia Slight Hypochromasia (manual) Slight Poikilocytosis (manual Slight Anisocytosis (manual) Slight Microcytosis (manual) Slight Tear Drop Cells Slight Ovalocytes Slight [place] Cells Puncture Site pCO2 pO2 HCO3 ABG pH ABG Total CO2 ABG O2 Saturation ABG Base Excess ABG Hemoglobin ABG Carboxyhemoglobin POC ABG HHb (Measured) ABG Methemoglobin Bill Test A-a O2 Difference Respiratory Index Hgb O2 Saturation Vent Mode Mechanical Rate FiO2 Tidal Volume PEEP Sodium Potassium Chloride Carbon Dioxide Anion Gap BUN Creatinine Est GFR ( Amer) Est GFR (Non-Af Amer) POC Glucose (mg/dL) 221 H 176 H Random Glucose Calcium Phosphorus Magnesium Total Bilirubin AST ALT Alkaline Phosphatase Total Protein Albumin Globulin Albumin/Globulin Ratio EKG/Cardiology Studies: Cardiology / EKG Studies 09/06/17 10:30 EKG [ELECTROCARDIOGRAM] DAILY Comment: Mode Of Transportation: Reason For Exam: qtc Attending/Attestation - Attestation I have personally seen and examined this patient.: Yes I have fully participated in the care of the patient.: Yes I have reviewed all pertinent clinical information: Yes Notes (Text): 09/06/17 18:20 patient seen and examined in the intensive care unit. patient remained intubated on ventilatory support Tolerated CPAP for a few hours and became tachypneic Started on milrinone drip with low ejection fraction of 15% Lasix on hold because of hypernatremia Continue antibiotics Case discussed with family at length
--- NOTE | 2017-09-06 11:22 | CP.PCM.PN ---
Subjective - Date & Time of Evaluation Date of Evaluation: 09/06/17 Time of Evaluation: 11:19 - Subjective Subjective: pt still in ventilator in process of weaning her Objective - Vital Signs/Intake and Output Vital Signs (last 24 hours): Temp Pulse Resp BP Pulse Ox 100.7 F H 115 H 19 130/77 96 09/06/17 08:00 09/06/17 08:01 09/06/17 08:01 09/06/17 08:01 09/06/17 08:01 Intake and Output: 09/06/17 09/06/17 06:59 18:59 Intake Total 1300.6 126.6 Output Total 640 50 Balance 660.6 76.6 - Medications Medications: Current Medications Acetaminophen (Tylenol 650mg/20.3ml Solution Ud) 650 mg PO Q4 PRN PRN Reason: for temperature >101 F Last Admin: 09/06/17 03:00 Dose: 650 mg Albuterol/Ipratropium (Duoneb 3 Mg/0.5 Mg (3 Ml) Ud) 3 ml INH RQ6 [facility] Last Admin: 09/06/17 08:09 Dose: 3 ml Aspirin (Aspirin Chewable) 81 mg PO DAILY [facility] Last Admin: 09/06/17 09:18 Dose: 81 mg Heparin Sodium (Porcine) (Heparin) 5,000 units SC Q12 [facility] Last Admin: 09/06/17 09:18 Dose: 5,000 units Propofol (Diprivan) 1,000 mg in 100 mls @ 3.889 mls/hr IV .Q24H PRN; Protocol; 10 MCG/KG/MIN PRN Reason: TITRATE PER MD ORDER Last Titration: 09/06/17 09:13 Dose: 40 mcg/kg/min, 15.556 mls/hr Piperacillin Sod/Tazobactam (Sod 3.375 gm/ Sodium Chloride) 100 mls @ 200 mls/ hr IVPB Q6H [facility] Last Admin: 09/06/17 06:12 Dose: 200 mls/hr Milrinone Lactate/Dextrose 20 (mg/ Dextrose) 100 mls @ 8.53 mls/hr IV .[id number] JENNIFER PRN Reason: 0.43 MCG/KG/MIN Insulin Human Regular (Novolin R) 0 unit SC ACHS [facility] PRN Reason: Protocol Methylprednisolone (Solu-Medrol) 20 mg IVP BID [facility] Last Admin: 09/06/17 09:19 Dose: 20 mg Metoprolol Tartrate (Lopressor) 25 mg PO BID [facility] Pantoprazole Sodium (Protonix Inj) 40 mg IVP DAILY [facility] Last Admin: 09/06/17 09:18 Dose: 40 mg Tramadol HCl (Ultram) 25 mg PO BID [facility] Last Admin: 09/06/17 09:18 Dose: 25 mg - Labs Labs: 09/06/17 06:30 09/06/17 06:28 PT 12.6 SECONDS (9.7-12.2) H 08/30/17 23:18 INR 1.1 08/30/17 23:18 APTT 28 SECONDS (21-34) 08/30/17 23:18 - Constitutional Appears: Non-toxic, In Acute Distress - Head Exam Head Exam: ATRAUMATIC - Eye Exam Eye Exam: Conjunctival injection - ENT Exam ENT Exam: Mucous Membranes Dry - Neck Exam Neck Exam: Full ROM - Respiratory Exam Respiratory Exam: Decreased Breath Sounds, Rhonchi Additional comments: r sige lung - Cardiovascular Exam Cardiovascular Exam: Tachycardia - GI/Abdominal Exam GI & Abdominal Exam: Normal Bowel Sounds - Extremities Exam Extremities Exam: Normal Capillary Refill - Back Exam Back Exam: NORMAL INSPECTION - Psychiatric Exam Psychiatric exam: Normal Affect - Skin Skin Exam: Pallor Assessment and Plan - Assessment and Plan (Free Text) Assessment: ac pnumonia ac ex copd resp failiur Plan: as per icu orders
[2017-09-06] MEDS: (Novolin R) Insulin Human Regular 100 units/ml vial SC SCH ×2 (11:43→17:00)
--- NOTE | 2017-09-06 14:00 | VASCLAB ---
PROCEDURE: Lower Extremity Venous Duplex Exam. HISTORY: Dyspnea, COPD PRIORS: 09/02/2017, normal. TECHNIQUE: Bilateral common femoral, femoral, popliteal and posterior tibial, peroneal and great saphenous veins were evaluated. Flow was assessed with color Doppler, compressibility, assessment of phasic flow and augmentation response. Report prepared by JAMIE Justin FINDINGS: RIGHT: 1. Common Femoral Vein: 1.1. Compressibility - Fully compressible: Thrombus - None : Flow - Phasic: Augmentation -Normal: Reflux - None. 2. Femoral Vein: 2.1. Compressibility - Fully compressible: Thrombus - None : Flow - Phasic: Augmentation -Normal: Reflux - None. 3. Popliteal Vein: 3.1. Compressibility - Fully compressible: Thrombus - None : Flow - Phasic: Augmentation -Normal: Reflux - None. 4. Posterior Tibial Vein: 4.1. Compressibility - Fully compressible: Thrombus - None: Flow - Phasic: Augmentation -Normal: Reflux - None. 5. Peroneal Vein: 5.1. Compressibility - Fully compressible: Thrombus - None: Flow - Phasic: Augmentation -Normal: Reflux - None. 6. Great Saphenous Vein: (lower only) upper not visualized. 6.1. Compressibility - Fully compressible: Thrombus - None: Flow - Phasic: Augmentation - Normal: Reflux - None. LEFT: 1. Common Femoral Vein: 1.1. Compressibility - Fully compressible: Thrombus - None: Flow - Phasic: Augmentation -Normal: Reflux - None. 2. Femoral Vein: 2.1. Compressibility - Fully compressible: Thrombus - None: Flow - Phasic: Augmentation -Normal: Reflux - None. 3. Popliteal Vein: 3.1. Compressibility - Fully compressible: Thrombus - None : Flow - Phasic: Augmentation -Normal: Reflux - None. 4. Posterior Tibial Vein: 4.1. Compressibility - Fully compressible: Thrombus - None: Flow - Phasic: Augmentation -Normal: Reflux - None. 5. Peroneal Vein: 5.1. Compressibility - Fully compressible: Thrombus - None: Flow - Phasic: Augmentation -Normal: Reflux - None. 6. Great Saphenous Vein: 6.1. Compressibility - Fully compressible: Thrombus - None: Flow - Phasic: Augmentation - Normal: Reflux - None. OTHER FINDINGS: Right: None significant. Left: None significant. IMPRESSION: Right: No evidence of deep or superficial vein thrombosis of the right lower extremity. Normal valve function noted of the right side. Left: No evidence of deep or superficial vein thrombosis of the left lower extremity. Normal valve function noted of the left side.
--- NOTE | 2017-09-06 14:42 | CP.PCM.CON ---
History of Present Illness - History of Present Illness History of Present Illness: Palliative consult Patient is 72 years all female admitted from home with shortness of breath, dyspnea on exertion, a nonproductive cough. Patient was treated with Zithromax and Levaquin by mouth without success. Upon admission chest x-ray was significant for right lower lobe pneumonia. Patient was treated with Zosyn and Solu-Medrol. On August 31 are R RT was called for respiratory distress and pulse oximetry of 82%. Patient was monitored on ICU before was intubated. Since the condition has worsened the intubation was guaranteed. Sputum culture was also positive and patient was placed on isolation. The white blood cell count remains high at 19.4. Patient had a fever overnight of 102. Sodium remains high at 161. Weaning of the ventilator wasn't successful so far. Patient is on CPAP today. Past medical history Anxiety, asthma, CHF, COPD, diabetes mellitus, emphysema, rest cancer with bilateral mastectomy Social history , lives at home, daughter Anjali is primary career services coordinator and it's very much involved in care Family history Diabetes and hypertension in family Review of Systems - Review of Systems All systems: reviewed and no additional remarkable complaints except Review of Systems: Review of systems obtained from the daughter, due to patient's status of intubation. Per daughter, patient was doing well on the ventilator until last night when she ran fever of 102. AT present patient tolerates CPAP and is afebrile. Past Patient History - Past Medical History & Family History Past Medical History?: Yes - Past Social History Smoking Status: Never Smoked - CARDIAC Hx Congestive Heart Failure: Yes - PULMONARY Hx Asthma: Yes Hx Chronic Obstructive Pulmonary Disease (COPD): Yes Hx Emphysema: Yes - NEUROLOGICAL Hx Neurological Disorder: No - HEENT Hx Cataracts: Yes - RENAL Hx Chronic Kidney Disease: No - ENDOCRINE/METABOLIC Hx Endocrine Disorders: No - HEMATOLOGICAL/ONCOLOGICAL Hx Blood Disorders: No - INTEGUMENTARY Hx Dermatological Problems: No - MUSCULOSKELETAL/RHEUMATOLOGICAL Hx Falls: No - GASTROINTESTINAL Hx Gastrointestinal Disorders: No - GENITOURINARY/GYNECOLOGICAL Hx Genitourinary Disorders: No - PSYCHIATRIC Hx Anxiety: Yes Hx Substance Use: No - SURGICAL HISTORY Hx Surgeries: Yes Hx Cataract Extraction: Yes Other/Comment: R mastectomy 8 yrs ago L mastectomy 6 yrs ago - ANESTHESIA Hx Anesthesia: Yes Hx Anesthesia Reactions: No Meds Allergies/Adverse Reactions: Allergies Allergy/AdvReac Type Severity Reaction Status Date / Time adhesive tape Allergy Verified 08/30/17 21:45 latex Allergy Verified 08/30/17 21:45 - Medications Medications: Current Medications Acetaminophen (Tylenol 650mg/20.3ml Solution Ud) 650 mg PO Q4 PRN PRN Reason: for temperature >101 F Last Admin: 09/06/17 03:00 Dose: 650 mg Albuterol/Ipratropium (Duoneb 3 Mg/0.5 Mg (3 Ml) Ud) 3 ml INH RQ6 [facility] Last Admin: 09/06/17 13:04 Dose: 3 ml Aspirin (Aspirin Chewable) 81 mg PO DAILY [facility] Last Admin: 09/06/17 09:18 Dose: 81 mg Heparin Sodium (Porcine) (Heparin) 5,000 units SC Q12 [facility] Last Admin: 09/06/17 09:18 Dose: 5,000 units Propofol (Diprivan) 1,000 mg in 100 mls @ 3.889 mls/hr IV .Q24H PRN; Protocol; 10 MCG/KG/MIN PRN Reason: TITRATE PER MD ORDER Last Titration: 09/06/17 09:13 Dose: 40 mcg/kg/min, 15.556 mls/hr Piperacillin Sod/Tazobactam (Sod 3.375 gm/ Sodium Chloride) 100 mls @ 200 mls/ hr IVPB Q6H [facility] Last Admin: 09/06/17 06:12 Dose: 200 mls/hr Milrinone Lactate/Dextrose 20 (mg/ Dextrose) 100 mls @ 8.53 mls/hr IV .[id number] [facility] PRN Reason: 0.43 MCG/KG/MIN Last Admin: 09/06/17 11:32 Dose: 8.53 mls/hr Insulin Human Regular (Novolin R) 0 unit SC ACHS [facility] PRN Reason: Protocol Last Admin: 09/06/17 11:43 Dose: 4 unit Methylprednisolone (Solu-Medrol) 20 mg IVP BID [facility] Last Admin: 09/06/17 09:19 Dose: 20 mg Metoprolol Tartrate (Lopressor) 25 mg PO BID [facility] Last Admin: 09/06/17 11:51 Dose: 25 mg Pantoprazole Sodium (Protonix Inj) 40 mg IVP DAILY [facility] Last Admin: 09/06/17 09:18 Dose: 40 mg Tramadol HCl (Ultram) 25 mg PO BID [facility] Last Admin: 09/06/17 09:18 Dose: 25 mg Physical Exam - Constitutional Appears: In Acute Distress - Head Exam Head Exam: ATRAUMATIC, NORMAL INSPECTION, NORMOCEPHALIC - Eye Exam Eye Exam: EOMI, Normal appearance, PERRL Pupil Exam: NORMAL ACCOMODATION, PERRL - ENT Exam ENT Exam: Mucous Membranes Moist, Normal Exam - Neck Exam Neck exam: Positive for: Normal Inspection - Respiratory Exam Respiratory Exam: Decreased Breath Sounds Additional comments: On mechanical ventilation support - Cardiovascular Exam Cardiovascular Exam: REGULAR RHYTHM - GI/Abdominal Exam GI & Abdominal Exam: Normal Bowel Sounds, Soft - Rectal Exam Rectal Exam: Deferred - Exam Additional comments: Rico catheter - Extremities Exam Extremities exam: Positive for: pedal edema - Back Exam Back exam: NORMAL INSPECTION - Neurological Exam Neurological exam: Alert - Psychiatric Exam Psychiatric exam: Normal Affect, Normal Mood - Skin Skin Exam: Dry, Normal Color, Warm Results - Vital Signs Recent Vital Signs: Last Vital Signs Temp 100.7 F H 09/06/17 08:00 Pulse 106 H 09/06/17 11:32 Resp 22 09/06/17 11:32 BP 120/70 09/06/17 11:51 Pulse Ox 99 09/06/17 11:32 - Labs Result Diagrams: 09/06/17 06:30 09/06/17 06:28 Labs: Laboratory Results - last 24 hr 09/05/17 09/05/17 09/05/17 14:31 17:56 20:37 WBC RBC Hgb Hct MCV MCH MCHC RDW Plt Count MPV Neut % (Auto) Lymph % (Auto) [place] % (Auto) Eos % (Auto) Baso % (Auto) Neut # (Auto) Lymph # (Auto) [place] # (Auto) Eos # (Auto) Baso # (Auto) Neutrophils % (Manual) Band Neutrophils % Lymphocytes % (Manual) Monocytes % (Manual) Nucleated RBC % Platelet Estimate Polychromasia Hypochromasia (manual) Poikilocytosis (manual Anisocytosis (manual) Microcytosis (manual) Tear Drop Cells Ovalocytes [place] Cells Puncture Site Rba pCO2 44 pO2 61 L HCO3 30.1 H ABG pH 7.46 H ABG Total CO2 32.7 H ABG O2 Saturation 94.9 L ABG Base Excess 6.7 H ABG Hemoglobin 9.3 L ABG Carboxyhemoglobin 2.1 H POC ABG HHb (Measured) 5.0 ABG Methemoglobin 0.7 Bill Test Na A-a O2 Difference 169.0 Respiratory Index 2.8 Hgb O2 Saturation 92.2 L Vent Mode Cpap Mechanical Rate FiO2 40.0 Tidal Volume PEEP Pressure Support 15 CPAP 5 Sodium 159 H Potassium 3.5 L Chloride 117 H Carbon Dioxide 33 H Anion Gap 12 BUN 39 H Creatinine 0.8 Est GFR ( Amer) > 60 Est GFR (Non-Af Amer) > 60 POC Glucose (mg/dL) 201 H Random Glucose 252 H Calcium 8.3 L Phosphorus 4.2 Magnesium 2.9 H Total Bilirubin 0.5 AST 42 H ALT 90 H Alkaline Phosphatase 79 Total Protein 6.3 Albumin 3.2 L Globulin 3.1 Albumin/Globulin Ratio 1.0 C. difficile Ag & Toxin 09/05/17 09/05/17 09/05/17 20:39 23:49 Unknown WBC 20.1 H RBC 4.24 Hgb 9.6 L Hct 32.5 L MCV 76.7 L MCH 22.6 L MCHC 29.5 L RDW 22.5 H Plt Count 269 MPV 8.7 Neut % (Auto) 93.3 H Lymph % (Auto) 1.2 L [place] % (Auto) 5.5 Eos % (Auto) 0.0 Baso % (Auto) 0.0 Neut # (Auto) 18.7 H Lymph # (Auto) 0.2 L [place] # (Auto) 1.1 H Eos # (Auto) 0.0 Baso # (Auto) 0.0 Neutrophils % (Manual) 92 H Band Neutrophils % Lymphocytes % (Manual) 2 L Monocytes % (Manual) 6 Nucleated RBC % Platelet Estimate Normal Polychromasia Slight Hypochromasia (manual) Moderate Poikilocytosis (manual Anisocytosis (manual) Slight Microcytosis (manual) Slight Tear Drop Cells Slight Ovalocytes Slight [place] Cells Slight Puncture Site pCO2 pO2 HCO3 ABG pH ABG Total CO2 ABG O2 Saturation ABG Base Excess ABG Hemoglobin ABG Carboxyhemoglobin POC ABG HHb (Measured) ABG Methemoglobin Bill Test A-a O2 Difference Respiratory Index Hgb O2 Saturation Vent Mode Mechanical Rate FiO2 Tidal Volume PEEP Pressure Support CPAP Sodium Potassium Chloride Carbon Dioxide Anion Gap BUN Creatinine Est GFR ( Amer) Est GFR (Non-Af Amer) POC Glucose (mg/dL) 252 H Random Glucose Calcium Phosphorus Magnesium Total Bilirubin AST ALT Alkaline Phosphatase Total Protein Albumin Globulin Albumin/Globulin Ratio C. difficile Ag & Toxin Negative 09/06/17 09/06/17 09/06/17 05:30 06:14 06:28 WBC RBC Hgb Hct MCV MCH MCHC RDW Plt Count MPV Neut % (Auto) Lymph % (Auto) [place] % (Auto) Eos % (Auto) Baso % (Auto) Neut # (Auto) Lymph # (Auto) [place] # (Auto) Eos # (Auto) Baso # (Auto) Neutrophils % (Manual) Band Neutrophils % Lymphocytes % (Manual) Monocytes % (Manual) Nucleated RBC % Platelet Estimate Polychromasia Hypochromasia (manual) Poikilocytosis (manual Anisocytosis (manual) Microcytosis (manual) Tear Drop Cells Ovalocytes [place] Cells Puncture Site Lr pCO2 50 H pO2 86 HCO3 31.8 H ABG pH 7.44 ABG Total CO2 35.5 H ABG O2 Saturation 98.5 H ABG Base Excess 8.8 H ABG Hemoglobin 8.9 L ABG Carboxyhemoglobin 2.1 H POC ABG HHb (Measured) 1.5 ABG Methemoglobin 0.8 Bill Test Pos A-a O2 Difference 208.0 Respiratory Index 2.4 Hgb O2 Saturation 95.6 Vent Mode Prvc Mechanical Rate 18 FiO2 50.0 Tidal Volume 500 PEEP 5 Pressure Support CPAP Sodium 161 H* Potassium 4.2 Chloride 118 H Carbon Dioxide 36 H Anion Gap 11 BUN 44 H Creatinine 0.8 Est GFR ( Amer) > 60 Est GFR (Non-Af Amer) > 60 POC Glucose (mg/dL) 261 H Random Glucose 235 H Calcium 8.5 L Phosphorus Magnesium Total Bilirubin 0.3 AST 70 H D ALT 101 H Alkaline Phosphatase 84 Total Protein 5.9 L Albumin 3.0 L Globulin 2.9 Albumin/Globulin Ratio 1.0 C. difficile Ag & Toxin 09/06/17 09/06/17 06:30 11:18 WBC 19.4 H RBC 3.96 Hgb 8.9 L Hct 30.5 L MCV 76.9 L MCH 22.4 L MCHC 29.1 L RDW 23.0 H Plt Count 291 MPV 9.1 Neut % (Auto) 88.4 H Lymph % (Auto) 1.7 L [place] % (Auto) 9.9 Eos % (Auto) 0.0 Baso % (Auto) 0.0 Neut # (Auto) 17.2 H Lymph # (Auto) 0.3 L [place] # (Auto) 1.9 H Eos # (Auto) 0.0 Baso # (Auto) 0.0 Neutrophils % (Manual) 87 H Band Neutrophils % 1 Lymphocytes % (Manual) 5 L Monocytes % (Manual) 7 Nucleated RBC % 4 H Platelet Estimate Normal Polychromasia Slight Hypochromasia (manual) Slight Poikilocytosis (manual Slight Anisocytosis (manual) Slight Microcytosis (manual) Slight Tear Drop Cells Slight Ovalocytes Slight [place] Cells Puncture Site pCO2 pO2 HCO3 ABG pH ABG Total CO2 ABG O2 Saturation ABG Base Excess ABG Hemoglobin ABG Carboxyhemoglobin POC ABG HHb (Measured) ABG Methemoglobin Bill Test A-a O2 Difference Respiratory Index Hgb O2 Saturation Vent Mode Mechanical Rate FiO2 Tidal Volume PEEP Pressure Support CPAP Sodium Potassium Chloride Carbon Dioxide Anion Gap BUN Creatinine Est GFR ( Amer) Est GFR (Non-Af Amer) POC Glucose (mg/dL) 221 H Random Glucose Calcium Phosphorus Magnesium Total Bilirubin AST ALT Alkaline Phosphatase Total Protein Albumin Globulin Albumin/Globulin Ratio C. difficile Ag & Toxin Assessment & Plan - Assessment and Plan (Free Text) Assessment: Palliative consult CODE status FULL CODE, there is no advanced directive and child, PPS10% I reviewed medical records, all diagnostic studies, examined patient in the bed , and discussed goals of care with her daughter. Patient seen and examined in bed, on mechanical ventilation support. Patient makes eye contact. Patient on CPAP at present. There is no fever. Breath sounds are diminished. Abdomen is soft, active bowel sounds. Patient is able to freely move her upper and lower extremities. Skin is intact. Rico to bedside drains clear urine. Blood pressure 120/71,HR 106. Zosyn IV and Solu-Medrol IV on board.Afebrile Goals of care discussed with Anjali. She is very hopeful her mother will recover and return home to her normal life. She is restless to see her mother off the ventilator. Anjali is concerned that the patient has been intubated for 7 days and wants to see her on the ventilator. I discussed the rationale for ventilator support explained the weaning process. Code status discussed with the daughter,away from bedside. She denied her mother having any form of advanced directive at home. I suggested we discussed and define the CODE STATUS during this meeting. Anjali declined it and said once her mother recovers, she would like her to be involved in a discussion about the CODE STATUS. Until than, patient to remain a FULL CODE. supported her. Impression * Acutely ill patient with symptoms of pneumonia * Patient is on ventilator support * Weaning process in place * Fever last night * Family very supportive and is looking forward full recovery * Family requesting FULL CODE Suggestions * Continue weaning process * Symptoms control * Promote skin integrity * Continue contact isolation Thank you for consultation palliative care Advanced planning time, 45 minutes
--- NOTE | 2017-09-06 15:54 | CP.PCM.PN ---
Subjective - Date & Time of Evaluation Date of Evaluation: 09/06/17 Time of Evaluation: 15:48 - Subjective Subjective: pt is intubated, eyes open. Objective - Vital Signs/Intake and Output Vital Signs (last 24 hours): Temp Pulse Resp BP Pulse Ox 98.7 F 119 H 28 H 135/68 100 09/06/17 12:00 09/06/17 15:01 09/06/17 15:01 09/06/17 15:00 09/06/17 15:01 Intake and Output: 09/06/17 09/06/17 06:59 18:59 Intake Total 1300.6 699.6 Output Total 640 50 Balance 660.6 649.6 - Medications Medications: Current Medications Acetaminophen (Tylenol 650mg/20.3ml Solution Ud) 650 mg PO Q4 PRN PRN Reason: for temperature >101 F Last Admin: 09/06/17 03:00 Dose: 650 mg Albuterol/Ipratropium (Duoneb 3 Mg/0.5 Mg (3 Ml) Ud) 3 ml INH RQ6 [facility] Last Admin: 09/06/17 13:04 Dose: 3 ml Aspirin (Aspirin Chewable) 81 mg PO DAILY [facility] Last Admin: 09/06/17 09:18 Dose: 81 mg Heparin Sodium (Porcine) (Heparin) 5,000 units SC Q12 [facility] Last Admin: 09/06/17 09:18 Dose: 5,000 units Propofol (Diprivan) 1,000 mg in 100 mls @ 3.889 mls/hr IV .Q24H PRN; Protocol; 10 MCG/KG/MIN PRN Reason: TITRATE PER MD ORDER Last Titration: 09/06/17 09:13 Dose: 40 mcg/kg/min, 15.556 mls/hr Piperacillin Sod/Tazobactam (Sod 3.375 gm/ Sodium Chloride) 100 mls @ 200 mls/ hr IVPB Q6H [facility] Last Admin: 09/06/17 06:12 Dose: 200 mls/hr Milrinone Lactate/Dextrose 20 (mg/ Sodium Chloride) 100 mls @ 8.53 mls/hr IV .[id number] [facility] PRN Reason: 0.43 MCG/KG/MIN Insulin Human Regular (Novolin R) 0 unit SC ACHS [facility] PRN Reason: Protocol Last Admin: 09/06/17 11:43 Dose: 4 unit Methylprednisolone (Solu-Medrol) 20 mg IVP BID [facility] Last Admin: 09/06/17 09:19 Dose: 20 mg Metoprolol Tartrate (Lopressor) 25 mg PO BID [facility] Last Admin: 09/06/17 11:51 Dose: 25 mg Pantoprazole Sodium (Protonix Inj) 40 mg IVP DAILY [facility] Last Admin: 09/06/17 09:18 Dose: 40 mg Tramadol HCl (Ultram) 25 mg PO BID [facility] Last Admin: 09/06/17 09:18 Dose: 25 mg - Labs Labs: 09/06/17 06:30 09/06/17 06:28 PT 12.6 SECONDS (9.7-12.2) H 08/30/17 23:18 INR 1.1 08/30/17 23:18 APTT 28 SECONDS (21-34) 08/30/17 23:18 - Constitutional Appears: Chronically Ill - Eye Exam Eye Exam: EOMI - ENT Exam ENT Exam: Normal Exam - Respiratory Exam Respiratory Exam: Decreased Breath Sounds - Cardiovascular Exam Cardiovascular Exam: REGULAR RHYTHM - GI/Abdominal Exam GI & Abdominal Exam: Normal Bowel Sounds - Extremities Exam Extremities Exam: Normal Inspection - Neurological Exam Neurological Exam: Alert Assessment and Plan - Assessment and Plan (Free Text) Assessment: 1. Pt has been in nsr. 2. Echo reveals severely reduced LVEF, the entire apex. No thrombus noted. The patient had normal LV EF on a 2017 echo. Etiology of LV dysfunction either MA that was missed by enzymes at home or Taketsubo. pt has severe hypernatrema, therefore will not give lasix. Cxr shows patchy infiltrates and a left effusion. Will give a trial of milrinone as pt has been ahead in IV fluids and has not been able to be extubated. 2. Beta blocer for lv dysfunction. No arb mukul with hypernatremia. Once off milrinone, will add hydralazine/nitrates as bp allows.
[2017-09-07] MEDS: Propofol 10 mg/ml 1,000 MG/100 ML VIAL IV PRN ×6 (01:14→20:47)
[2017-09-07] MEDS: (Novolin R) Insulin Human Regular 100 units/ml vial SC SCH ×4 (01:31→17:46)
[2017-09-07] MEDS: Albuterol-Ipratrop 3 mg / 0.5 (3 ml) UD INH SCH ×4 (01:52→19:12)
[2017-09-07] MEDS: Piperacillin/Tazobact 3.375 GM in Sodium Chloride 0.9% 100 ML IVPB SCH ×3 (02:00→11:58)
[2017-09-07 05:23] LABS: ABG ALLEN TEST POS; ARTERIAL BLOOD GAS HCO3 35.5 mmol/L (21-28); ARTERIAL BLOOD GAS HEMOGLOBIN 7.8 g/dL (11.7-17.4); ARTERIAL BLOOD GAS O2 SAT 99.4 % (95-98); ARTERIAL BLOOD GAS PCO2 45 mm/Hg (35-45); ARTERIAL BLOOD GAS PH 7.53 (7.35-7.45); ARTERIAL BLOOD GAS PO2 82 mm/Hg (80-100)
[2017-09-07 06:32] LABS: BASO % 0.1 % (0.0-2.0); EOS % 0.1 % (0.0-4.0); HEMOGLOBIN 8.4 g/dL (11.0-16.0); LYMPH # 1.2 K/uL (1.0-4.3); LYMPH % 6.4 % (20.0-40.0); MEAN CELL VOLUME 76.8 fL (81.0-99.0); MEAN CORPUSCULAR HEMOGLOBIN 22.9 pg (27.0-31.0); MEAN CORPUSCULAR HGB CONC 29.9 g/dL (33.0-37.0); MEAN PLATELET VOLUME 9.4 fL (7.2-11.7); MONO # 1.7 K/uL (0.0-0.8); MONO % 9.2 % (0.0-10.0); NEUT # 15.8 K/uL (1.8-7.0); NEUT % 84.2 % (50.0-75.0); NRBC % 1.2 % (0.0-2.0); PLATELET COUNT 263 K/uL (130-400); RBC 3.68 Mil/uL (3.80-5.20); RED CELL DISTRIBUTION WIDTH 22.1 % (11.5-14.5); WHITE BLOOD COUNT 18.7 K/uL (4.8-10.8)
[2017-09-07] MEDS: Acetaminophen 650mg/20.3ml solution UD PO PRN (06:52)
[2017-09-07 06:56] LABS: ALB/GLOB RATIO 1.1 (1.0-2.1); ALBUMIN 2.9 g/dL (3.5-5.0); ALT/SGPT 101 U/L (9-52); AST/SGOT 61 U/L (14-36); BLOOD UREA NITROGEN 38 mg/dL (7-17); CALCIUM 8.9 mg/dl (8.6-10.4); GFR AFRICAN-AMERICAN > 60; GFR NON-AFRICAN AMERICAN > 60
[2017-09-07 08:56] LABS: ANISOCYTOSIS SLIGHT; BANDS 1 % (0-2); HYPOCHROMIC SLIGHT; LYMPHOCYTE 5 % (20-40); MONOCYTE 8 % (0-10); NEUTROPHIL 86 % (50-75); NUCLEATED RED BLOOD CELL 3 % (0-0); PLATELET ESTIMATE NORMAL (NORMAL); POIKILOCYTOSIS SLIGHT; TOTAL CELLS COUNTED 100
[2017-09-07 08:57] LABS: BURR CELLS SLIGHT; MICROCYTOSIS SLIGHT; OVALOCYTES SLIGHT; TARGET CELLS SLIGHT; TEARDROP CELLS SLIGHT
--- NOTE | 2017-09-07 09:36 | RAD ---
HISTORY: sob COMPARISON: 09/06/2017 FINDINGS: LUNGS: No active pulmonary disease. PLEURA: No significant pleural effusion identified, no pneumothorax apparent. CARDIOVASCULAR: Normal heart size. Status post CABG. ET tube, NG tube and right IJ central venous multi lumen catheter unchanged. 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 VISUALIZED UPPER ABDOMEN: Normal. OTHER FINDINGS: None. IMPRESSION: No acute infiltrate.
[2017-09-07] MEDS: MethylPREDNISolone 40 mg Vial IVP SCH ×2 (09:45→18:00)
--- NOTE | 2017-09-07 11:46 | CP.CCUPN ---
<GuanakoScott - Last Filed: 09/07/17 16:12> CCU Subjective - Physician Review Events Since Last Encounter (Free Text): 09/07/17 11:47 Patient seen and examined at bedside .Per nursing no acute events occurred overnight. Subjective (Free Text): 09/05/17 11:17 Patient seen and examined at bedside. Per nursing no acute events overnight 09/05/17 16:21 Critical Care Time Spent (in minutes): 40 CCU Objective - Vital Signs / Intake & Output Vital Signs (Last 4 hours): Vital Signs Temp Pulse Resp BP Pulse Ox 09/07/17 11:00 109 H 28 H 123/65 93 L 09/07/17 10:50 111 H 27 H 93 L 09/07/17 10:07 130/67 09/07/17 10:00 100.2 F H 112 H 21 130/67 93 L 09/07/17 09:01 113 H 23 97/47 L 95 09/07/17 09:00 118 H 20 149/79 94 L 09/07/17 08:48 133 H 21 130/68 95 09/07/17 08:01 126 H 26 H 09/07/17 08:00 100.8 F H 126 H 16 131/71 97 Intake and Output (Last 8hrs): Intake & Output 09/06/17 09/07/17 09/07/17 22:59 06:59 14:59 Intake Total 646.0 1043.5 609.5 Output Total 515 750 50 Balance 131.0 293.5 559.5 Weight 145 lb Intake: IV 100 200 200 Intake, IV Amount 196.0 443.5 159.5 Right Distal Port 136.5 175.5 117.0 Internal Jugular Right Medial Port 200 Internal Jugular Right Proximal Port 59.5 68.0 42.5 Internal Jugular Tube Feeding 350 400 250 Output: Urine 515 750 50 Urethral (Rico) 515 750 50 Other: # Bowel Movements 1 - Physical Exam Head: Positive for: Atraumatic, Normocephalic Pupils: Positive for: PERRL Mouth: Positive for: Moist Mucous Membranes Respiratory/Chest: Positive for: Good Air Exchange, Wheezes, Rhonchi Cardiovascular: Positive for: Regular Rate and Rhythm, Normal S1, S2 Abdomen: Positive for: Normal Bowel Sounds Upper Extremity: Positive for: Normal Inspection - Medications Active Medications: Active Medications Generic Name Dose Route Start Last Admin Trade Name Freq PRN Reason Stop Dose Admin Acetaminophen 650 mg 09/03/17 22:46 09/07/17 06:52 Tylenol 650mg/20.3ml Solution Ud PO 650 mg Q4 PRN Administration for temperature >101 F Albuterol/Ipratropium 3 ml 09/06/17 02:00 09/07/17 07:27 Duoneb 3 Mg/0.5 Mg (3 Ml) Ud INH 3 ml RQ6 JENNIFER Administration Aspirin 81 mg 09/02/17 10:30 09/07/17 10:07 Aspirin Chewable PO 81 mg DAILY JENNIFER Administration Heparin Sodium (Porcine) 5,000 units 09/02/17 22:00 09/07/17 10:10 Heparin SC 5,000 units Q12 JENNIFER Administration Propofol 1,000 mg in 100 mls @ 3.889 mls/hr 09/02/17 14:40 09/07/17 09:42 Diprivan IV 60.16 mcg/kg/min .Q24H PRN 23.4 mls/hr TITRATE PER MD ORDER Administration Protocol 10 MCG/KG/MIN Piperacillin Sod/Tazobactam 100 mls @ 200 mls/hr 09/04/17 00:45 09/07/17 06: 54 Sod 3.375 gm/ Sodium Chloride IVPB 200 mls/hr Q6H JENNIFER Administration Milrinone Lactate/Dextrose 20 100 mls @ 8.53 mls/hr 09/06/17 21:30 09/07/17 08:48 mg/ Sodium Chloride IV 8.53 mls/hr .[id number] JENNIFER Administration 0.43 MCG/KG/MIN Insulin Human Regular 0 unit 09/07/17 00:00 09/07/17 06:15 Novolin R SC Not Given Q6H JENNIFER Protocol Methylprednisolone 20 mg 09/05/17 18:00 09/07/17 09:45 Solu-Medrol IVP 20 mg BID JENNIFER Administration Metoprolol Tartrate 25 mg 09/06/17 10:00 09/07/17 10:07 Lopressor PO 25 mg BID JENNIFER Administration Pantoprazole Sodium 40 mg 09/02/17 10:45 09/07/17 09:45 Protonix Inj IVP 40 mg DAILY JENNIFER Administration - Patient Studies Lab Studies: Microbiology Studies 09/05/17 20:00 Gram Stain - Final Trachasp Sputum Culture - Final Klebsiella Pneumoniae Ssp Pneu Yeast Species 09/03/17 23:00 Blood Culture - Preliminary Blood NO GROWTH AFTER 3 DAYS 09/03/17 23:30 Blood Culture - Preliminary Blood NO GROWTH AFTER 3 DAYS 09/05/17 Unknown Urine Culture - Final Urine,Rico No Growth (<1,000 CFU/ML) 09/05/17 11:40 Blood Culture - Preliminary Blood NO GROWTH AFTER 24 HOURS 09/05/17 11:16 Blood Culture - Preliminary Blood NO GROWTH AFTER 24 HOURS 09/04/17 Unknown Gram Stain - Final Trachasp Sputum Culture - Final Yeast Species Lab Studies 09/07/17 09/07/17 09/07/17 Range/Units 11:29 06:24 06:23 WBC 18.7 H (4.8-10.8) K/uL RBC 3.68 L (3.80-5.20) Mil/uL Hgb 8.4 L (11.0-16.0) g/dL Hct 28.3 L (34.0-47.0) % MCV 76.8 L (81.0-99.0) fL MCH 22.9 L (27.0-31.0) pg MCHC 29.9 L (33.0-37.0) g/dL RDW 22.1 H (11.5-14.5) % Plt Count 263 (130-400) K/uL MPV 9.4 (7.2-11.7) fL Neut % (Auto) 84.2 H (50.0-75.0) % Lymph % (Auto) 6.4 L (20.0-40.0) % [place] % (Auto) 9.2 (0.0-10.0) % Eos % (Auto) 0.1 (0.0-4.0) % Baso % (Auto) 0.1 (0.0-2.0) % Neut # (Auto) 15.8 H (1.8-7.0) K/uL Lymph # (Auto) 1.2 (1.0-4.3) K/uL [place] # (Auto) 1.7 H (0.0-0.8) K/uL Eos # (Auto) 0.0 (0.0-0.7) K/uL Baso # (Auto) 0.0 (0.0-0.2) K/uL Neutrophils % (Manual) 86 H (50-75) % Band Neutrophils % 1 (0-2) % Lymphocytes % (Manual) 5 L (20-40) % Monocytes % (Manual) 8 (0-10) % Nucleated RBC % 3 H (0-0) % Platelet Estimate Normal (NORMAL) Hypochromasia (manual) Slight Poikilocytosis (manual Slight Anisocytosis (manual) Slight Microcytosis (manual) Slight Target Cells Slight Tear Drop Cells Slight Ovalocytes Slight [place] Cells Slight Puncture Site pCO2 (35-45) mm/Hg pO2 (80-100) mm/Hg HCO3 (21-28) mmol/L ABG pH (7.35-7.45) ABG Total CO2 (22-28) mmol/L ABG O2 Saturation (95-98) % ABG Base Excess (-2.0-3.0) mmol/L ABG Hemoglobin (11.7-17.4) g/dL ABG Carboxyhemoglobin (0.5-1.5) % POC ABG HHb (Measured) (0.0-5.0) % ABG Methemoglobin (0.0-3.0) % Bill Test A-a O2 Difference mm/Hg Respiratory Index Hgb O2 Saturation (95.0-98.0) % Vent Mode Mechanical Rate FiO2 % Tidal Volume PEEP Sodium 159 H (132-148) mmol/L Potassium 4.4 (3.6-5.2) mmol/L Chloride 115 H (98-107) mmol/L Carbon Dioxide 38 H (22-30) mmol/L Anion Gap 10 (10-20) BUN 38 H (7-17) mg/dL Creatinine 0.8 (0.7-1.2) mg/dL Est GFR ( Amer) > 60 Est GFR (Non-Af Amer) > 60 POC Glucose (mg/dL) 167 H (65-110) mg/dL Random Glucose 123 H (65-105) mg/dL Calcium 8.9 (8.6-10.4) mg/dl Total Bilirubin 0.4 (0.2-1.3) mg/dL AST 61 H (14-36) U/L ALT 101 H (9-52) U/L Alkaline Phosphatase 80 (38-126) U/L Total Protein 5.7 L (6.3-8.3) g/dL Albumin 2.9 L (3.5-5.0) g/dL Globulin 2.8 (2.2-3.9) gm/dL Albumin/Globulin Ratio 1.1 (1.0-2.1) Procalcitonin (0.19-0.49) NG/ML C. difficile Tox B Gene (Not Detected) Mycoplasma pneumon IgM (NEGATIVE) 09/07/17 09/07/17 09/06/17 Range/Units 05:59 05:07 23:55 WBC (4.8-10.8) K/uL RBC (3.80-5.20) Mil/uL Hgb (11.0-16.0) g/dL Hct (34.0-47.0) % MCV (81.0-99.0) fL MCH (27.0-31.0) pg MCHC (33.0-37.0) g/dL RDW (11.5-14.5) % Plt Count (130-400) K/uL MPV (7.2-11.7) fL Neut % (Auto) (50.0-75.0) % Lymph % (Auto) (20.0-40.0) % [place] % (Auto) (0.0-10.0) % Eos % (Auto) (0.0-4.0) % Baso % (Auto) (0.0-2.0) % Neut # (Auto) (1.8-7.0) K/uL Lymph # (Auto) (1.0-4.3) K/uL [place] # (Auto) (0.0-0.8) K/uL Eos # (Auto) (0.0-0.7) K/uL Baso # (Auto) (0.0-0.2) K/uL Neutrophils % (Manual) (50-75) % Band Neutrophils % (0-2) % Lymphocytes % (Manual) (20-40) % Monocytes % (Manual) (0-10) % Nucleated RBC % (0-0) % Platelet Estimate (NORMAL) Hypochromasia (manual) Poikilocytosis (manual Anisocytosis (manual) Microcytosis (manual) Target Cells Tear Drop Cells Ovalocytes [place] Cells Puncture Site Lr pCO2 45 (35-45) mm/Hg pO2 82 (80-100) mm/Hg HCO3 35.5 H (21-28) mmol/L ABG pH 7.53 H (7.35-7.45) ABG Total CO2 39.0 H (22-28) mmol/L ABG O2 Saturation 99.4 H (95-98) % ABG Base Excess 13.6 H (-2.0-3.0) mmol/L ABG Hemoglobin 7.8 L (11.7-17.4) g/dL ABG Carboxyhemoglobin 2.5 H (0.5-1.5) % POC ABG HHb (Measured) 0.6 (0.0-5.0) % ABG Methemoglobin 0.8 (0.0-3.0) % Bill Test Pos A-a O2 Difference 218.0 mm/Hg Respiratory Index 2.7 Hgb O2 Saturation 96.1 (95.0-98.0) % Vent Mode Prvc Mechanical Rate 18 FiO2 50.0 % Tidal Volume 500 PEEP 5 Sodium (132-148) mmol/L Potassium (3.6-5.2) mmol/L Chloride (98-107) mmol/L Carbon Dioxide (22-30) mmol/L Anion Gap (10-20) BUN (7-17) mg/dL Creatinine (0.7-1.2) mg/dL Est GFR ( Amer) Est GFR (Non-Af Amer) POC Glucose (mg/dL) 124 H 177 H (65-110) mg/dL Random Glucose (65-105) mg/dL Calcium (8.6-10.4) mg/dl Total Bilirubin (0.2-1.3) mg/dL AST (14-36) U/L ALT (9-52) U/L Alkaline Phosphatase (38-126) U/L Total Protein (6.3-8.3) g/dL Albumin (3.5-5.0) g/dL Globulin (2.2-3.9) gm/dL Albumin/Globulin Ratio (1.0-2.1) Procalcitonin (0.19-0.49) NG/ML C. difficile Tox B Gene (Not Detected) Mycoplasma pneumon IgM (NEGATIVE) 09/06/17 09/06/1709/06/18 Range/Units 18:09 18:09 18:09 WBC (4.8-10.8) K/uL RBC (3.80-5.20) Mil/uL Hgb (11.0-16.0) g/dL Hct (34.0-47.0) % MCV (81.0-99.0) fL MCH (27.0-31.0) pg MCHC (33.0-37.0) g/dL RDW (11.5-14.5) % Plt Count (130-400) K/uL MPV (7.2-11.7) fL Neut % (Auto) (50.0-75.0) % Lymph % (Auto) (20.0-40.0) % [place] % (Auto) (0.0-10.0) % Eos % (Auto) (0.0-4.0) % Baso % (Auto) (0.0-2.0) % Neut # (Auto) (1.8-7.0) K/uL Lymph # (Auto) (1.0-4.3) K/uL [place] # (Auto) (0.0-0.8) K/uL Eos # (Auto) (0.0-0.7) K/uL Baso # (Auto) (0.0-0.2) K/uL Neutrophils % (Manual) (50-75) % Band Neutrophils % (0-2) % Lymphocytes % (Manual) (20-40) % Monocytes % (Manual) (0-10) % Nucleated RBC % (0-0) % Platelet Estimate (NORMAL) Hypochromasia (manual) Poikilocytosis (manual Anisocytosis (manual) Microcytosis (manual) Target Cells Tear Drop Cells Ovalocytes Roseanne Cells Puncture Site pCO2 (35-45) mm/Hg pO2 (80-100) mm/Hg HCO3 (21-28) mmol/L ABG pH (7.35-7.45) ABG Total CO2 (22-28) mmol/L ABG O2 Saturation (95-98) % ABG Base Excess (-2.0-3.0) mmol/L ABG Hemoglobin (11.7-17.4) g/dL ABG Carboxyhemoglobin (0.5-1.5) % POC ABG HHb (Measured) (0.0-5.0) % ABG Methemoglobin (0.0-3.0) % Bill Test A-a O2 Difference mm/Hg Respiratory Index Hgb O2 Saturation (95.0-98.0) % Vent Mode Mechanical Rate FiO2 % Tidal Volume PEEP Sodium (132-148) mmol/L Potassium (3.6-5.2) mmol/L Chloride (98-107) mmol/L Carbon Dioxide (22-30) mmol/L Anion Gap (10-20) BUN (7-17) mg/dL Creatinine (0.7-1.2) mg/dL Est GFR ( Amer) Est GFR (Non-Af Amer) POC Glucose (mg/dL) 176 H (65-110) mg/dL Random Glucose (65-105) mg/dL Calcium (8.6-10.4) mg/dl Total Bilirubin (0.2-1.3) mg/dL AST (14-36) U/L ALT (9-52) U/L Alkaline Phosphatase (38-126) U/L Total Protein (6.3-8.3) g/dL Albumin (3.5-5.0) g/dL Globulin (2.2-3.9) gm/dL Albumin/Globulin Ratio (1.0-2.1) Procalcitonin 0.08 L (0.19-0.49) NG/ML C. difficile Tox B Gene (Not Detected) Mycoplasma pneumon IgM Negative (NEGATIVE) 09/03/17 Range/Units 09:50 WBC (4.8-10.8) K/uL RBC (3.80-5.20) Mil/uL Hgb (11.0-16.0) g/dL Hct (34.0-47.0) % MCV (81.0-99.0) fL MCH (27.0-31.0) pg MCHC (33.0-37.0) g/dL RDW (11.5-14.5) % Plt Count (130-400) K/uL MPV (7.2-11.7) fL Neut % (Auto) (50.0-75.0) % Lymph % (Auto) (20.0-40.0) % [place] % (Auto) (0.0-10.0) % Eos % (Auto) (0.0-4.0) % Baso % (Auto) (0.0-2.0) % Neut # (Auto) (1.8-7.0) K/uL Lymph # (Auto) (1.0-4.3) K/uL [place] # (Auto) (0.0-0.8) K/uL Eos # (Auto) (0.0-0.7) K/uL Baso # (Auto) (0.0-0.2) K/uL Neutrophils % (Manual) (50-75) % Band Neutrophils % (0-2) % Lymphocytes % (Manual) (20-40) % Monocytes % (Manual) (0-10) % Nucleated RBC % (0-0) % Platelet Estimate (NORMAL) Hypochromasia (manual) Poikilocytosis (manual Anisocytosis (manual) Microcytosis (manual) Target Cells Tear Drop Cells Ovalocytes Roseanne Cells Puncture Site pCO2 (35-45) mm/Hg pO2 (80-100) mm/Hg HCO3 (21-28) mmol/L ABG pH (7.35-7.45) ABG Total CO2 (22-28) mmol/L ABG O2 Saturation (95-98) % ABG Base Excess (-2.0-3.0) mmol/L ABG Hemoglobin (11.7-17.4) g/dL ABG Carboxyhemoglobin (0.5-1.5) % POC ABG HHb (Measured) (0.0-5.0) % ABG Methemoglobin (0.0-3.0) % Bill Test A-a O2 Difference mm/Hg Respiratory Index Hgb O2 Saturation (95.0-98.0) % Vent Mode Mechanical Rate FiO2 % Tidal Volume PEEP Sodium (132-148) mmol/L Potassium (3.6-5.2) mmol/L Chloride (98-107) mmol/L Carbon Dioxide (22-30) mmol/L Anion Gap (10-20) BUN (7-17) mg/dL Creatinine (0.7-1.2) mg/dL Est GFR ( Amer) Est GFR (Non-Af Amer) POC Glucose (mg/dL) (65-110) mg/dL Random Glucose (65-105) mg/dL Calcium (8.6-10.4) mg/dl Total Bilirubin (0.2-1.3) mg/dL AST (14-36) U/L ALT (9-52) U/L Alkaline Phosphatase (38-126) U/L Total Protein (6.3-8.3) g/dL Albumin (3.5-5.0) g/dL Globulin (2.2-3.9) gm/dL Albumin/Globulin Ratio (1.0-2.1) Procalcitonin (0.19-0.49) NG/ML C. difficile Tox B Gene Not detected (Not Detected) Mycoplasma pneumon IgM (NEGATIVE) Laboratory Results - last 24 hr 09/03/17 09/06/17 09/06/17 09:50 18:09 18:09 WBC RBC Hgb Hct MCV MCH MCHC RDW Plt Count MPV Neut % (Auto) Lymph % (Auto) [place] % (Auto) Eos % (Auto) Baso % (Auto) Neut # (Auto) Lymph # (Auto) [place] # (Auto) Eos # (Auto) Baso # (Auto) Neutrophils % (Manual) Band Neutrophils % Lymphocytes % (Manual) Monocytes % (Manual) Nucleated RBC % Platelet Estimate Hypochromasia (manual) Poikilocytosis (manual Anisocytosis (manual) Microcytosis (manual) Target Cells Tear Drop Cells Ovalocytes [place] Cells Puncture Site pCO2 pO2 HCO3 ABG pH ABG Total CO2 ABG O2 Saturation ABG Base Excess ABG Hemoglobin ABG Carboxyhemoglobin POC ABG HHb (Measured) ABG Methemoglobin Bill Test A-a O2 Difference Respiratory Index Hgb O2 Saturation Vent Mode Mechanical Rate FiO2 Tidal Volume PEEP Sodium Potassium Chloride Carbon Dioxide Anion Gap BUN Creatinine Est GFR ( Amer) Est GFR (Non-Af Amer) POC Glucose (mg/dL) Random Glucose Calcium Total Bilirubin AST ALT Alkaline Phosphatase Total Protein Albumin Globulin Albumin/Globulin Ratio Procalcitonin 0.08 L C. difficile Tox B Gene Not detected Mycoplasma pneumon IgM Negative 09/06/17 09/06/17 09/07/17 18:09 23:55 05:07 WBC RBC Hgb Hct MCV MCH MCHC RDW Plt Count MPV Neut % (Auto) Lymph % (Auto) [place] % (Auto) Eos % (Auto) Baso % (Auto) Neut # (Auto) Lymph # (Auto) [place] # (Auto) Eos # (Auto) Baso # (Auto) Neutrophils % (Manual) Band Neutrophils % Lymphocytes % (Manual) Monocytes % (Manual) Nucleated RBC % Platelet Estimate Hypochromasia (manual) Poikilocytosis (manual Anisocytosis (manual) Microcytosis (manual) Target Cells Tear Drop Cells Ovalocytes [place] Cells Puncture Site Lr pCO2 45 pO2 82 HCO3 35.5 H ABG pH 7.53 H ABG Total CO2 39.0 H ABG O2 Saturation 99.4 H ABG Base Excess 13.6 H ABG Hemoglobin 7.8 L ABG Carboxyhemoglobin 2.5 H POC ABG HHb (Measured) 0.6 ABG Methemoglobin 0.8 Bill Test Pos A-a O2 Difference 218.0 Respiratory Index 2.7 Hgb O2 Saturation 96.1 Vent Mode Prvc Mechanical Rate 18 FiO2 50.0 Tidal Volume 500 PEEP 5 Sodium Potassium Chloride Carbon Dioxide Anion Gap BUN Creatinine Est GFR ( Amer) Est GFR (Non-Af Amer) POC Glucose (mg/dL) 176 H 177 H Random Glucose Calcium Total Bilirubin AST ALT Alkaline Phosphatase Total Protein Albumin Globulin Albumin/Globulin Ratio Procalcitonin C. difficile Tox B Gene Mycoplasma pneumon IgM 09/07/17 09/07/17 09/07/17 05:59 06:23 06:24 WBC 18.7 H RBC 3.68 L Hgb 8.4 L Hct 28.3 L MCV 76.8 L MCH 22.9 L MCHC 29.9 L RDW 22.1 H Plt Count 263 MPV 9.4 Neut % (Auto) 84.2 H Lymph % (Auto) 6.4 L [place] % (Auto) 9.2 Eos % (Auto) 0.1 Baso % (Auto) 0.1 Neut # (Auto) 15.8 H Lymph # (Auto) 1.2 [place] # (Auto) 1.7 H Eos # (Auto) 0.0 Baso # (Auto) 0.0 Neutrophils % (Manual) 86 H Band Neutrophils % 1 Lymphocytes % (Manual) 5 L Monocytes % (Manual) 8 Nucleated RBC % 3 H Platelet Estimate Normal Hypochromasia (manual) Slight Poikilocytosis (manual Slight Anisocytosis (manual) Slight Microcytosis (manual) Slight Target Cells Slight Tear Drop Cells Slight Ovalocytes Slight [place] Cells Slight Puncture Site pCO2 pO2 HCO3 ABG pH ABG Total CO2 ABG O2 Saturation ABG Base Excess ABG Hemoglobin ABG Carboxyhemoglobin POC ABG HHb (Measured) ABG Methemoglobin Bill Test A-a O2 Difference Respiratory Index Hgb O2 Saturation Vent Mode Mechanical Rate FiO2 Tidal Volume PEEP Sodium 159 H Potassium 4.4 Chloride 115 H Carbon Dioxide 38 H Anion Gap 10 BUN 38 H Creatinine 0.8 Est GFR ( Amer) > 60 Est GFR (Non-Af Amer) > 60 POC Glucose (mg/dL) 124 H Random Glucose 123 H Calcium 8.9 Total Bilirubin 0.4 AST 61 H ALT 101 H Alkaline Phosphatase 80 Total Protein 5.7 L Albumin 2.9 L Globulin 2.8 Albumin/Globulin Ratio 1.1 Procalcitonin C. difficile Tox B Gene Mycoplasma pneumon IgM 09/07/17 11:29 WBC RBC Hgb Hct MCV MCH MCHC RDW Plt Count MPV Neut % (Auto) Lymph % (Auto) [place] % (Auto) Eos % (Auto) Baso % (Auto) Neut # (Auto) Lymph # (Auto) [place] # (Auto) Eos # (Auto) Baso # (Auto) Neutrophils % (Manual) Band Neutrophils % Lymphocytes % (Manual) Monocytes % (Manual) Nucleated RBC % Platelet Estimate Hypochromasia (manual) Poikilocytosis (manual Anisocytosis (manual) Microcytosis (manual) Target Cells Tear Drop Cells Ovalocytes Roseanne Cells Puncture Site pCO2 pO2 HCO3 ABG pH ABG Total CO2 ABG O2 Saturation ABG Base Excess ABG Hemoglobin ABG Carboxyhemoglobin POC ABG HHb (Measured) ABG Methemoglobin Bill Test A-a O2 Difference Respiratory Index Hgb O2 Saturation Vent Mode Mechanical Rate FiO2 Tidal Volume PEEP Sodium Potassium Chloride Carbon Dioxide Anion Gap BUN Creatinine Est GFR ( Amer) Est GFR (Non-Af Amer) POC Glucose (mg/dL) 167 H Random Glucose Calcium Total Bilirubin AST ALT Alkaline Phosphatase Total Protein Albumin Globulin Albumin/Globulin Ratio Procalcitonin C. difficile Tox B Gene Mycoplasma pneumon IgM Fingerstick Blood Sugar Results: 127 Review of Systems - Review of Systems Systems not reviewed;Unavailable: Acuity of Condition Assessment/Plan - Assessment and Plan (Free Text) Assessment: 72 yr old Female with a past medical history of anxiety, asthma, CHF, COPD, CM , emphysema who was admitted for respiratory distress. Plan: Neurology: anxiety, neuropathy - D/C Ultram 25mg PO BID- Diprivan 1000mg qd for sedation @ 15.556 ml/hr - APAP 650mg/20.3ml soln UD q4 PRN and follow temperature (continue cooling blanket PRN) cards: CHF (worsening EF; recs per speeder operator Dr. Slade) - Milrinone 20mg in NaCl 0.9% @ 0.43mcg/kg/min, 8.53 ml/hr IV [id number] - measure CVP - Lopressor 25mg PO BID - check QTc x5d (09/06: 544) - ASA 81mg PO qd - Trial hydralazine/nitrates if BP tolerant (per [place]) pulm: AECOPD, PNA, emphysema, asthma - Trial CPAP at 5 and 15 pressure support titrate to sats >92%. - FiO2 50%, rate 16, spontaneous Vt 550-670 - Solu-Medrol 20mg IVP q12h Endocrinology: DM2 - Novolin 2u, continue high sliding scale (09/06 g) - accuchecks blood sugar levels q4h nephro: CKD - Urinalysis -Urine Chloride -Urine Cx. Will f/u with results. - continue following I/O and kidney function tests - monitor Na levels closely - hold Lasix 2/2 hyperNa - No ACEi/ARB ID: ?[id number] - Klebsiella pneumoniae sensitive to TMP/SMX, Ertapenem, Cefazolin, Ciprofloxacin, Cefepime, Gentamicin, Meropenem - MycoplasmaIgM negative; Legionella pending - culture blood, urine, sputum - Zosyn 3.375g IV @ 200ml/hr IVPB q6h PPx: DVT, PUD - OGT feeds @ 50ml/hr - heparin 5000U sc q12 - Protonix 40mg IVP qd <Rey Da Silva - Last Filed: 09/07/17 17:12> CCU Objective - Vital Signs / Intake & Output Vital Signs (Last 4 hours): Vital Signs Temp Pulse Resp BP Pulse Ox 09/07/17 16:00 100.8 F H 104 H 19 138/75 97 09/07/17 15:50 117 H 30 H 92 L 09/07/17 15:00 108 H 21 137/72 95 09/07/17 14:50 119 H 21 137/76 91 L 09/07/17 14:20 117 H 30 H 91 L 09/07/17 14:00 100.6 F H 103 H 19 137/76 96 Intake and Output (Last 8hrs): Intake & Output 09/07/17 09/07/17 09/07/17 06:59 14:59 22:59 Intake Total 1043.5 855.2 163.8 Output Total 750 50 Balance 293.5 805.2 163.8 Weight 145 lb Intake: IV 200 200 Intake, IV Amount 443.5 255.2 63.8 Right Distal Port 175.5 187.2 46.8 Internal Jugular Right Medial Port 200 Internal Jugular Right Proximal Port 68.0 68.0 17.0 Internal Jugular Tube Feeding 400 400 100 Output: Urine 750 50 Urethral (Rico) 750 50 Other: # Bowel Movements 1 - Medications Active Medications: Active Medications Generic Name Dose Route Start Last Admin Trade Name Freq PRN Reason Stop Dose Admin Acetaminophen 650 mg 09/03/17 22:46 09/07/17 06:52 Tylenol 650mg/20.3ml Solution Ud PO 650 mg Q4 PRN Administration for temperature >101 F Albuterol/Ipratropium 3 ml 09/06/17 02:00 09/07/17 13:11 Duoneb 3 Mg/0.5 Mg (3 Ml) Ud INH 3 ml RQ6 JENNIFER Administration Aspirin 81 mg 09/02/17 10:30 09/07/17 10:07 Aspirin Chewable PO 81 mg DAILY JENNIFER Administration Heparin Sodium (Porcine) 5,000 units 09/02/17 22:00 09/07/17 10:10 Heparin SC 5,000 units Q12 JENNIFER Administration Propofol 1,000 mg in 100 mls @ 3.889 mls/hr 09/02/17 14:40 09/07/17 09:42 Diprivan IV 60.16 mcg/kg/min .Q24H PRN 23.4 mls/hr TITRATE PER MD ORDER Administration Protocol 10 MCG/KG/MIN Milrinone Lactate/Dextrose 20 100 mls @ 8.53 mls/hr 09/06/17 21:30 09/07/17 08:48 mg/ Sodium Chloride IV 8.53 mls/hr .[id number] JENNIFER Administration 0.43 MCG/KG/MIN Meropenem 1 gm/ Sodium 100 mls @ 100 mls/hr 09/07/17 17:15 Chloride IVPB Q8 JENNIFER Azithromycin 500 mg/ Sodium 250 mls @ 250 mls/hr 09/07/17 18:00 Chloride IVPB Q24H [facility] Insulin Human Regular 0 unit 09/07/17 00:00 09/07/17 13:00 Novolin R SC Not Given Q6H [facility] Protocol Methylprednisolone 20 mg 09/05/17 18:00 09/07/17 09:45 Solu-Medrol IVP 20 mg BID [facility] Administration Metoprolol Tartrate 25 mg 09/06/17 10:00 09/07/17 10:07 Lopressor PO 25 mg BID [facility] Administration Pantoprazole Sodium 40 mg 09/02/17 10:45 09/07/17 09:45 Protonix Inj IVP 40 mg DAILY [facility] Administration - Patient Studies Lab Studies: Microbiology Studies 09/05/17 11:40 Blood Culture - Preliminary Blood NO GROWTH AFTER 48 HOURS 09/05/17 11:16 Blood Culture - Preliminary Blood NO GROWTH AFTER 48 HOURS 09/05/17 20:00 Gram Stain - Final Trachasp Sputum Culture - Final Klebsiella Pneumoniae Ssp Pneu Yeast Species 09/03/17 23:00 Blood Culture - Preliminary Blood NO GROWTH AFTER 3 DAYS 09/03/17 23:30 Blood Culture - Preliminary Blood NO GROWTH AFTER 3 DAYS 09/05/17 Unknown Urine Culture - Final Urine,[place] No Growth (<1,000 CFU/ML) 09/04/17 Unknown Gram Stain - Final Trachasp Sputum Culture - Final Yeast Species Lab Studies 09/07/17 09/07/17 09/07/17 Range/Units 11:35 11:35 11:29 WBC (4.8-10.8) K/uL RBC (3.80-5.20) Mil/uL Hgb (11.0-16.0) g/dL Hct (34.0-47.0) % MCV (81.0-99.0) fL MCH (27.0-31.0) pg MCHC (33.0-37.0) g/dL RDW (11.5-14.5) % Plt Count (130-400) K/uL MPV (7.2-11.7) fL Neut % (Auto) (50.0-75.0) % Lymph % (Auto) (20.0-40.0) % [place] % (Auto) (0.0-10.0) % Eos % (Auto) (0.0-4.0) % Baso % (Auto) (0.0-2.0) % Neut # (Auto) (1.8-7.0) K/uL Lymph # (Auto) (1.0-4.3) K/uL [place] # (Auto) (0.0-0.8) K/uL Eos # (Auto) (0.0-0.7) K/uL Baso # (Auto) (0.0-0.2) K/uL Neutrophils % (Manual) (50-75) % Band Neutrophils % (0-2) % Lymphocytes % (Manual) (20-40) % Monocytes % (Manual) (0-10) % Nucleated RBC % (0-0) % Platelet Estimate (NORMAL) Hypochromasia (manual) Poikilocytosis (manual Anisocytosis (manual) Microcytosis (manual) Target Cells Tear Drop Cells Ovalocytes [place] Cells Puncture Site pCO2 (35-45) mm/Hg pO2 (80-100) mm/Hg HCO3 (21-28) mmol/L ABG pH (7.35-7.45) ABG Total CO2 (22-28) mmol/L ABG O2 Saturation (95-98) % ABG Base Excess (-2.0-3.0) mmol/L ABG Hemoglobin (11.7-17.4) g/dL ABG Carboxyhemoglobin (0.5-1.5) % POC ABG HHb (Measured) (0.0-5.0) % ABG Methemoglobin (0.0-3.0) % Bill Test A-a O2 Difference mm/Hg Respiratory Index Hgb O2 Saturation (95.0-98.0) % Vent Mode Mechanical Rate FiO2 % Tidal Volume PEEP Sodium (132-148) mmol/L Potassium (3.6-5.2) mmol/L Chloride (98-107) mmol/L Carbon Dioxide (22-30) mmol/L Anion Gap (10-20) BUN (7-17) mg/dL Creatinine (0.7-1.2) mg/dL Est GFR ( Amer) Est GFR (Non-Af Amer) POC Glucose (mg/dL) 167 H (65-110) mg/dL Random Glucose (65-105) mg/dL Calcium (8.6-10.4) mg/dl Total Bilirubin (0.2-1.3) mg/dL AST (14-36) U/L ALT (9-52) U/L Alkaline Phosphatase (38-126) U/L Total Protein (6.3-8.3) g/dL Albumin (3.5-5.0) g/dL Globulin (2.2-3.9) gm/dL Albumin/Globulin Ratio (1.0-2.1) Procalcitonin 0.09 L (0.19-0.49) NG/ML Urine Color Yellow (YELLOW) Urine Clarity Hazy (Clear) Urine pH 5.0 (5.0-8.0) Ur Specific [place] 1.018 (1.003-1.030) Urine Protein Negative (NEGATIVE) mg/dL Urine Glucose (UA) Normal (Normal) mg/dL Urine Ketones Negative (NEGATIVE) mg/dL Urine Blood 1+ H (NEGATIVE) Urine Nitrate Negative (NEGATIVE) Urine Bilirubin Negative (NEGATIVE) Urine Urobilinogen Normal (0.2-1.0) mg/dL Ur Leukocyte Esterase 1+ H (Negative) More/uL Urine WBC (Auto) 19 H (0-5) /hpf Urine RBC (Auto) 50 H (0-3) /hpf Ur Squamous Epith Cells 5 (0-5) /hpf Uric Acid Crystals Few H (<OCC) /hpf Urine Bacteria Few H (<OCC) Urine Yeast (Budding) Mod H (NEGATIVE) /hpf C. difficile Tox B Gene (Not Detected) Mycoplasma pneumon IgM (NEGATIVE) 09/07/17 09/07/17 09/07/17 Range/Units 06:24 06:23 05:59 WBC 18.7 H (4.8-10.8) K/uL RBC 3.68 L (3.80-5.20) Mil/uL Hgb 8.4 L (11.0-16.0) g/dL Hct 28.3 L (34.0-47.0) % MCV 76.8 L (81.0-99.0) fL MCH 22.9 L (27.0-31.0) pg MCHC 29.9 L (33.0-37.0) g/dL RDW 22.1 H (11.5-14.5) % Plt Count 263 (130-400) K/uL MPV 9.4 (7.2-11.7) fL Neut % (Auto) 84.2 H (50.0-75.0) % Lymph % (Auto) 6.4 L (20.0-40.0) % [place] % (Auto) 9.2 (0.0-10.0) % Eos % (Auto) 0.1 (0.0-4.0) % Baso % (Auto) 0.1 (0.0-2.0) % Neut # (Auto) 15.8 H (1.8-7.0) K/uL Lymph # (Auto) 1.2 (1.0-4.3) K/uL [place] # (Auto) 1.7 H (0.0-0.8) K/uL Eos # (Auto) 0.0 (0.0-0.7) K/uL Baso # (Auto) 0.0 (0.0-0.2) K/uL Neutrophils % (Manual) 86 H (50-75) % Band Neutrophils % 1 (0-2) % Lymphocytes % (Manual) 5 L (20-40) % Monocytes % (Manual) 8 (0-10) % Nucleated RBC % 3 H (0-0) % Platelet Estimate Normal (NORMAL) Hypochromasia (manual) Slight Poikilocytosis (manual Slight Anisocytosis (manual) Slight Microcytosis (manual) Slight Target Cells Slight Tear Drop Cells Slight Ovalocytes Slight [place] Cells Slight Puncture Site pCO2 (35-45) mm/Hg pO2 (80-100) mm/Hg HCO3 (21-28) mmol/L ABG pH (7.35-7.45) ABG Total CO2 (22-28) mmol/L ABG O2 Saturation (95-98) % ABG Base Excess (-2.0-3.0) mmol/L ABG Hemoglobin (11.7-17.4) g/dL ABG Carboxyhemoglobin (0.5-1.5) % POC ABG HHb (Measured) (0.0-5.0) % ABG Methemoglobin (0.0-3.0) % Bill Test A-a O2 Difference mm/Hg Respiratory Index Hgb O2 Saturation (95.0-98.0) % Vent Mode Mechanical Rate FiO2 % Tidal Volume PEEP Sodium 159 H (132-148) mmol/L Potassium 4.4 (3.6-5.2) mmol/L Chloride 115 H (98-107) mmol/L Carbon Dioxide 38 H (22-30) mmol/L Anion Gap 10 (10-20) BUN 38 H (7-17) mg/dL Creatinine 0.8 (0.7-1.2) mg/dL Est GFR ( Amer) > 60 Est GFR (Non-Af Amer) > 60 POC Glucose (mg/dL) 124 H (65-110) mg/dL Random Glucose 123 H (65-105) mg/dL Calcium 8.9 (8.6-10.4) mg/dl Total Bilirubin 0.4 (0.2-1.3) mg/dL AST 61 H (14-36) U/L ALT 101 H (9-52) U/L Alkaline Phosphatase 80 (38-126) U/L Total Protein 5.7 L (6.3-8.3) g/dL Albumin 2.9 L (3.5-5.0) g/dL Globulin 2.8 (2.2-3.9) gm/dL Albumin/Globulin Ratio 1.1 (1.0-2.1) Procalcitonin (0.19-0.49) NG/ML Urine Color (YELLOW) Urine Clarity (Clear) Urine pH (5.0-8.0) Ur Specific [place] (1.003-1.030) Urine Protein (NEGATIVE) mg/dL Urine Glucose (UA) (Normal) mg/dL Urine Ketones (NEGATIVE) mg/dL Urine Blood (NEGATIVE) Urine Nitrate (NEGATIVE) Urine Bilirubin (NEGATIVE) Urine Urobilinogen (0.2-1.0) mg/dL Ur Leukocyte Esterase (Negative) More/uL Urine WBC (Auto) (0-5) /hpf Urine RBC (Auto) (0-3) /hpf Ur Squamous Epith Cells (0-5) /hpf Uric Acid Crystals (<OCC) /hpf Urine Bacteria (<OCC) Urine Yeast (Budding) (NEGATIVE) /hpf C. difficile Tox B Gene (Not Detected) Mycoplasma pneumon IgM (NEGATIVE) 09/07/17 09/06/17 09/06/17 Range/Units 05:07 23:55 18:09 WBC (4.8-10.8) K/uL RBC (3.80-5.20) Mil/uL Hgb (11.0-16.0) g/dL Hct (34.0-47.0) % MCV (81.0-99.0) fL MCH (27.0-31.0) pg MCHC (33.0-37.0) g/dL RDW (11.5-14.5) % Plt Count (130-400) K/uL MPV (7.2-11.7) fL Neut % (Auto) (50.0-75.0) % Lymph % (Auto) (20.0-40.0) % [place] % (Auto) (0.0-10.0) % Eos % (Auto) (0.0-4.0) % Baso % (Auto) (0.0-2.0) % Neut # (Auto) (1.8-7.0) K/uL Lymph # (Auto) (1.0-4.3) K/uL [place] # (Auto) (0.0-0.8) K/uL Eos # (Auto) (0.0-0.7) K/uL Baso # (Auto) (0.0-0.2) K/uL Neutrophils % (Manual) (50-75) % Band Neutrophils % (0-2) % Lymphocytes % (Manual) (20-40) % Monocytes % (Manual) (0-10) % Nucleated RBC % (0-0) % Platelet Estimate (NORMAL) Hypochromasia (manual) Poikilocytosis (manual Anisocytosis (manual) Microcytosis (manual) Target Cells Tear Drop Cells Ovalocytes Roseanne Cells Puncture Site Lr pCO2 45 (35-45) mm/Hg pO2 82 (80-100) mm/Hg HCO3 35.5 H (21-28) mmol/L ABG pH 7.53 H (7.35-7.45) ABG Total CO2 39.0 H (22-28) mmol/L ABG O2 Saturation 99.4 H (95-98) % ABG Base Excess 13.6 H (-2.0-3.0) mmol/L ABG Hemoglobin 7.8 L (11.7-17.4) g/dL ABG Carboxyhemoglobin 2.5 H (0.5-1.5) % POC ABG HHb (Measured) 0.6 (0.0-5.0) % ABG Methemoglobin 0.8 (0.0-3.0) % Bill Test Pos A-a O2 Difference 218.0 mm/Hg Respiratory Index 2.7 Hgb O2 Saturation 96.1 (95.0-98.0) % Vent Mode Prvc Mechanical Rate 18 FiO2 50.0 % Tidal Volume 500 PEEP 5 Sodium (132-148) mmol/L Potassium (3.6-5.2) mmol/L Chloride (98-107) mmol/L Carbon Dioxide (22-30) mmol/L Anion Gap (10-20) BUN (7-17) mg/dL Creatinine (0.7-1.2) mg/dL Est GFR ( Amer) Est GFR (Non-Af Amer) POC Glucose (mg/dL) 177 H 176 H (65-110) mg/dL Random Glucose (65-105) mg/dL Calcium (8.6-10.4) mg/dl Total Bilirubin (0.2-1.3) mg/dL AST (14-36) U/L ALT (9-52) U/L Alkaline Phosphatase (38-126) U/L Total Protein (6.3-8.3) g/dL Albumin (3.5-5.0) g/dL Globulin (2.2-3.9) gm/dL Albumin/Globulin Ratio (1.0-2.1) Procalcitonin (0.19-0.49) NG/ML Urine Color (YELLOW) Urine Clarity (Clear) Urine pH (5.0-8.0) Ur Specific [place] (1.003-1.030) Urine Protein (NEGATIVE) mg/dL Urine Glucose (UA) (Normal) mg/dL Urine Ketones (NEGATIVE) mg/dL Urine Blood (NEGATIVE) Urine Nitrate (NEGATIVE) Urine Bilirubin (NEGATIVE) Urine Urobilinogen (0.2-1.0) mg/dL Ur Leukocyte Esterase (Negative) More/uL Urine WBC (Auto) (0-5) /hpf Urine RBC (Auto) (0-3) /hpf Ur Squamous Epith Cells (0-5) /hpf Uric Acid Crystals (<OCC) /hpf Urine Bacteria (<OCC) Urine Yeast (Budding) (NEGATIVE) /hpf C. difficile Tox B Gene (Not Detected) Mycoplasma pneumon IgM (NEGATIVE) 09/06/17 09/06/17 09/03/17 Range/Units 18:09 18:09 09:50 WBC (4.8-10.8) K/uL RBC (3.80-5.20) Mil/uL Hgb (11.0-16.0) g/dL Hct (34.0-47.0) % MCV (81.0-99.0) fL MCH (27.0-31.0) pg MCHC (33.0-37.0) g/dL RDW (11.5-14.5) % Plt Count (130-400) K/uL MPV (7.2-11.7) fL Neut % (Auto) (50.0-75.0) % Lymph % (Auto) (20.0-40.0) % [place] % (Auto) (0.0-10.0) % Eos % (Auto) (0.0-4.0) % Baso % (Auto) (0.0-2.0) % Neut # (Auto) (1.8-7.0) K/uL Lymph # (Auto) (1.0-4.3) K/uL [place] # (Auto) (0.0-0.8) K/uL Eos # (Auto) (0.0-0.7) K/uL Baso # (Auto) (0.0-0.2) K/uL Neutrophils % (Manual) (50-75) % Band Neutrophils % (0-2) % Lymphocytes % (Manual) (20-40) % Monocytes % (Manual) (0-10) % Nucleated RBC % (0-0) % Platelet Estimate (NORMAL) Hypochromasia (manual) Poikilocytosis (manual Anisocytosis (manual) Microcytosis (manual) Target Cells Tear Drop Cells Ovalocytes [place] Cells Puncture Site pCO2 (35-45) mm/Hg pO2 (80-100) mm/Hg HCO3 (21-28) mmol/L ABG pH (7.35-7.45) ABG Total CO2 (22-28) mmol/L ABG O2 Saturation (95-98) % ABG Base Excess (-2.0-3.0) mmol/L ABG Hemoglobin (11.7-17.4) g/dL ABG Carboxyhemoglobin (0.5-1.5) % POC ABG HHb (Measured) (0.0-5.0) % ABG Methemoglobin (0.0-3.0) % Bill Test A-a O2 Difference mm/Hg Respiratory Index Hgb O2 Saturation (95.0-98.0) % Vent Mode Mechanical Rate FiO2 % Tidal Volume PEEP Sodium (132-148) mmol/L Potassium (3.6-5.2) mmol/L Chloride (98-107) mmol/L Carbon Dioxide (22-30) mmol/L Anion Gap (10-20) BUN (7-17) mg/dL Creatinine (0.7-1.2) mg/dL Est GFR ( Amer) Est GFR (Non-Af Amer) POC Glucose (mg/dL) (65-110) mg/dL Random Glucose (65-105) mg/dL Calcium (8.6-10.4) mg/dl Total Bilirubin (0.2-1.3) mg/dL AST (14-36) U/L ALT (9-52) U/L Alkaline Phosphatase (38-126) U/L Total Protein (6.3-8.3) g/dL Albumin (3.5-5.0) g/dL Globulin (2.2-3.9) gm/dL Albumin/Globulin Ratio (1.0-2.1) Procalcitonin 0.08 L (0.19-0.49) NG/ML Urine Color (YELLOW) Urine Clarity (Clear) Urine pH (5.0-8.0) Ur Specific [place] (1.003-1.030) Urine Protein (NEGATIVE) mg/dL Urine Glucose (UA) (Normal) mg/dL Urine Ketones (NEGATIVE) mg/dL Urine Blood (NEGATIVE) Urine Nitrate (NEGATIVE) Urine Bilirubin (NEGATIVE) Urine Urobilinogen (0.2-1.0) mg/dL Ur Leukocyte Esterase (Negative) More/uL Urine WBC (Auto) (0-5) /hpf Urine RBC (Auto) (0-3) /hpf Ur Squamous Epith Cells (0-5) /hpf Uric Acid Crystals (<OCC) /hpf Urine Bacteria (<OCC) Urine Yeast (Budding) (NEGATIVE) /hpf C. difficile Tox B Gene Not detected (Not Detected) Mycoplasma pneumon IgM Negative (NEGATIVE) Laboratory Results - last 24 hr 09/03/17 09/06/17 09/06/17 09:50 18:09 18:09 WBC RBC Hgb Hct MCV MCH MCHC RDW Plt Count MPV Neut % (Auto) Lymph % (Auto) [place] % (Auto) Eos % (Auto) Baso % (Auto) Neut # (Auto) Lymph # (Auto) [place] # (Auto) Eos # (Auto) Baso # (Auto) Neutrophils % (Manual) Band Neutrophils % Lymphocytes % (Manual) Monocytes % (Manual) Nucleated RBC % Platelet Estimate Hypochromasia (manual) Poikilocytosis (manual Anisocytosis (manual) Microcytosis (manual) Target Cells Tear Drop Cells Ovalocytes [place] Cells Puncture Site pCO2 pO2 HCO3 ABG pH ABG Total CO2 ABG O2 Saturation ABG Base Excess ABG Hemoglobin ABG Carboxyhemoglobin POC ABG HHb (Measured) ABG Methemoglobin Bill Test A-a O2 Difference Respiratory Index Hgb O2 Saturation Vent Mode Mechanical Rate FiO2 Tidal Volume PEEP Sodium Potassium Chloride Carbon Dioxide Anion Gap BUN Creatinine Est GFR ( Amer) Est GFR (Non-Af Amer) POC Glucose (mg/dL) Random Glucose Calcium Total Bilirubin AST ALT Alkaline Phosphatase Total Protein Albumin Globulin Albumin/Globulin Ratio Procalcitonin 0.08 L Urine Color Urine Clarity Urine pH Ur Specific [place] Urine Protein Urine Glucose (UA) Urine Ketones Urine Blood Urine Nitrate Urine Bilirubin Urine Urobilinogen Ur Leukocyte Esterase Urine WBC (Auto) Urine RBC (Auto) Ur Squamous Epith Cells Uric Acid Crystals Urine Bacteria Urine Yeast (Budding) C. difficile Tox B Gene Not detected Mycoplasma pneumon IgM Negative 09/06/17 09/06/17 09/07/17 18:09 23:55 05:07 WBC RBC Hgb Hct MCV MCH MCHC RDW Plt Count MPV Neut % (Auto) Lymph % (Auto) [place] % (Auto) Eos % (Auto) Baso % (Auto) Neut # (Auto) Lymph # (Auto) [place] # (Auto) Eos # (Auto) Baso # (Auto) Neutrophils % (Manual) Band Neutrophils % Lymphocytes % (Manual) Monocytes % (Manual) Nucleated RBC % Platelet Estimate Hypochromasia (manual) Poikilocytosis (manual Anisocytosis (manual) Microcytosis (manual) Target Cells Tear Drop Cells Ovalocytes [place] Cells Puncture Site Lr pCO2 45 pO2 82 HCO3 35.5 H ABG pH 7.53 H ABG Total CO2 39.0 H ABG O2 Saturation 99.4 H ABG Base Excess 13.6 H ABG Hemoglobin 7.8 L ABG Carboxyhemoglobin 2.5 H POC ABG HHb (Measured) 0.6 ABG Methemoglobin 0.8 Bill Test Pos A-a O2 Difference 218.0 Respiratory Index 2.7 Hgb O2 Saturation 96.1 Vent Mode Prvc Mechanical Rate 18 FiO2 50.0 Tidal Volume 500 PEEP 5 Sodium Potassium Chloride Carbon Dioxide Anion Gap BUN Creatinine Est GFR ( Amer) Est GFR (Non-Af Amer) POC Glucose (mg/dL) 176 H 177 H Random Glucose Calcium Total Bilirubin AST ALT Alkaline Phosphatase Total Protein Albumin Globulin Albumin/Globulin Ratio Procalcitonin Urine Color Urine Clarity Urine pH Ur Specific [place] Urine Protein Urine Glucose (UA) Urine Ketones Urine Blood Urine Nitrate Urine Bilirubin Urine Urobilinogen Ur Leukocyte Esterase Urine WBC (Auto) Urine RBC (Auto) Ur Squamous Epith Cells Uric Acid Crystals Urine Bacteria Urine Yeast (Budding) C. difficile Tox B Gene Mycoplasma pneumon IgM 09/07/17 09/07/17 09/07/17 05:59 06:23 06:24 WBC 18.7 H RBC 3.68 L Hgb 8.4 L Hct 28.3 L MCV 76.8 L MCH 22.9 L MCHC 29.9 L RDW 22.1 H Plt Count 263 MPV 9.4 Neut % (Auto) 84.2 H Lymph % (Auto) 6.4 L [place] % (Auto) 9.2 Eos % (Auto) 0.1 Baso % (Auto) 0.1 Neut # (Auto) 15.8 H Lymph # (Auto) 1.2 [place] # (Auto) 1.7 H Eos # (Auto) 0.0 Baso # (Auto) 0.0 Neutrophils % (Manual) 86 H Band Neutrophils % 1 Lymphocytes % (Manual) 5 L Monocytes % (Manual) 8 Nucleated RBC % 3 H Platelet Estimate Normal Hypochromasia (manual) Slight Poikilocytosis (manual Slight Anisocytosis (manual) Slight Microcytosis (manual) Slight Target Cells Slight Tear Drop Cells Slight Ovalocytes Slight [place] Cells Slight Puncture Site pCO2 pO2 HCO3 ABG pH ABG Total CO2 ABG O2 Saturation ABG Base Excess ABG Hemoglobin ABG Carboxyhemoglobin POC ABG HHb (Measured) ABG Methemoglobin Bill Test A-a O2 Difference Respiratory Index Hgb O2 Saturation Vent Mode Mechanical Rate FiO2 Tidal Volume PEEP Sodium 159 H Potassium 4.4 Chloride 115 H Carbon Dioxide 38 H Anion Gap 10 BUN 38 H Creatinine 0.8 Est GFR ( Amer) > 60 Est GFR (Non-Af Amer) > 60 POC Glucose (mg/dL) 124 H Random Glucose 123 H Calcium 8.9 Total Bilirubin 0.4 AST 61 H ALT 101 H Alkaline Phosphatase 80 Total Protein 5.7 L Albumin 2.9 L Globulin 2.8 Albumin/Globulin Ratio 1.1 Procalcitonin Urine Color Urine Clarity Urine pH Ur Specific [place] Urine Protein Urine Glucose (UA) Urine Ketones Urine Blood Urine Nitrate Urine Bilirubin Urine Urobilinogen Ur Leukocyte Esterase Urine WBC (Auto) Urine RBC (Auto) Ur Squamous Epith Cells Uric Acid Crystals Urine Bacteria Urine Yeast (Budding) C. difficile Tox B Gene Mycoplasma pneumon IgM 09/07/17 09/07/17 09/07/17 11:29 11:35 11:35 WBC RBC Hgb Hct MCV MCH MCHC RDW Plt Count MPV Neut % (Auto) Lymph % (Auto) [place] % (Auto) Eos % (Auto) Baso % (Auto) Neut # (Auto) Lymph # (Auto) [place] # (Auto) Eos # (Auto) Baso # (Auto) Neutrophils % (Manual) Band Neutrophils % Lymphocytes % (Manual) Monocytes % (Manual) Nucleated RBC % Platelet Estimate Hypochromasia (manual) Poikilocytosis (manual Anisocytosis (manual) Microcytosis (manual) Target Cells Tear Drop Cells Ovalocytes Roseanne Cells Puncture Site pCO2 pO2 HCO3 ABG pH ABG Total CO2 ABG O2 Saturation ABG Base Excess ABG Hemoglobin ABG Carboxyhemoglobin POC ABG HHb (Measured) ABG Methemoglobin Bill Test A-a O2 Difference Respiratory Index Hgb O2 Saturation Vent Mode Mechanical Rate FiO2 Tidal Volume PEEP Sodium Potassium Chloride Carbon Dioxide Anion Gap BUN Creatinine Est GFR ( Amer) Est GFR (Non-Af Amer) POC Glucose (mg/dL) 167 H Random Glucose Calcium Total Bilirubin AST ALT Alkaline Phosphatase Total Protein Albumin Globulin Albumin/Globulin Ratio Procalcitonin 0.09 L Urine Color Yellow Urine Clarity Hazy Urine pH 5.0 Ur Specific [place] 1.018 Urine Protein Negative Urine Glucose (UA) Normal Urine Ketones Negative Urine Blood 1+ H Urine Nitrate Negative Urine Bilirubin Negative Urine Urobilinogen Normal Ur Leukocyte Esterase 1+ H Urine WBC (Auto) 19 H Urine RBC (Auto) 50 H Ur Squamous Epith Cells 5 Uric Acid Crystals Few H Urine Bacteria Few H Urine Yeast (Budding) Mod H C. difficile Tox B Gene Mycoplasma pneumon IgM Attending/Attestation - Attestation I have personally seen and examined this patient.: Yes I have fully participated in the care of the patient.: Yes I have reviewed all pertinent clinical information: Yes Notes (Text): 09/07/17 17:09 patient seen and examined in the intensive care unit. Case discussed with house staffin the morning around Intubated on ventilatory support FiO2 50% Tolerating CPAP but oxygen saturation in the low 90s Tracheal aspirate positive for Klebsiella and antibiotics switched to meropenem and azithromycin Infectious disease evaluation yeast in the tracheal aspirate most likely contamination, blood cultures negative so far Continue feeding Good urine output after patient was started on milrinone case discussed with family at length
[2017-09-07 12:09] LABS: URINE BILIRUBIN NEGATIVE (NEGATIVE); URINE BLOOD 1+ (NEGATIVE); URINE CLARITY Hazy (Clear); URINE COLOR Yellow (YELLOW); URINE GLUCOSE (UA) NORMAL (Normal); URINE LEUKOCYTE ESTERASE 1+ Leu/uL (Negative); URINE NITRATE NEGATIVE (NEGATIVE); URINE PROTEIN NEGATIVE (NEGATIVE); URINE UROBILINOGEN NORMAL mg/dL (0.2-1.0)
[2017-09-07 12:17] LABS: SQUAMOUS EPITHIAL 5 /hpf (0-5)
[2017-09-07 12:18] LABS: URINE BACTERIA FEW (<OCC); URINE URIC ACID CRYSTALS FEW /hpf (<OCC)
--- NOTE | 2017-09-07 15:42 | CP.PCM.PN ---
Subjective - Date & Time of Evaluation Date of Evaluation: 09/07/17 Time of Evaluation: 15:38 - Subjective Subjective: Pt is alert, eyes open and responsive Objective - Vital Signs/Intake and Output Vital Signs (last 24 hours): Temp Pulse Resp BP Pulse Ox 100.6 F H 108 H 21 137/72 95 09/07/17 14:00 09/07/17 15:00 09/07/17 15:00 09/07/17 15:00 09/07/17 15:00 Intake and Output: 09/07/17 09/07/17 06:59 18:59 Intake Total 1277.5 937.1 Output Total 1000 50 Balance 277.5 887.1 - Medications Medications: Current Medications Acetaminophen (Tylenol 650mg/20.3ml Solution Ud) 650 mg PO Q4 PRN PRN Reason: for temperature >101 F Last Admin: 09/07/17 06:52 Dose: 650 mg Albuterol/Ipratropium (Duoneb 3 Mg/0.5 Mg (3 Ml) Ud) 3 ml INH RQ6 [facility] Last Admin: 09/07/17 13:11 Dose: 3 ml Aspirin (Aspirin Chewable) 81 mg PO DAILY [facility] Last Admin: 09/07/17 10:07 Dose: 81 mg Heparin Sodium (Porcine) (Heparin) 5,000 units SC Q12 [facility] Last Admin: 09/07/17 10:10 Dose: 5,000 units Propofol (Diprivan) 1,000 mg in 100 mls @ 3.889 mls/hr IV .Q24H PRN; Protocol; 10 MCG/KG/MIN PRN Reason: TITRATE PER MD ORDER Last Admin: 09/07/17 09:42 Dose: 60.16 mcg/kg/min, 23.4 mls/hr Piperacillin Sod/Tazobactam (Sod 3.375 gm/ Sodium Chloride) 100 mls @ 200 mls/ hr IVPB Q6H [facility] Last Admin: 09/07/17 11:58 Dose: 200 mls/hr Milrinone Lactate/Dextrose 20 (mg/ Sodium Chloride) 100 mls @ 8.53 mls/hr IV .[id number] JENN[facility]ER PRN Reason: 0.43 MCG/KG/MIN Last Admin: 09/07/17 08:48 Dose: 8.53 mls/hr Insulin Human Regular (Novolin R) 0 unit SC Q6H [facility] PRN Reason: Protocol Last Admin: 09/07/17 13:00 Dose: Not Given Methylprednisolone (Solu-Medrol) 20 mg IVP BID [facility] Last Admin: 09/07/17 09:45 Dose: 20 mg Metoprolol Tartrate (Lopressor) 25 mg PO BID [facility] Last Admin: 09/07/17 10:07 Dose: 25 mg Pantoprazole Sodium (Protonix Inj) 40 mg IVP DAILY [facility] Last Admin: 09/07/17 09:45 Dose: 40 mg - Labs Labs: 09/07/17 06:24 09/07/17 06:23 PT 12.6 SECONDS (9.7-12.2) H 08/30/17 23:18 INR 1.1 08/30/17 23:18 APTT 28 SECONDS (21-34) 08/30/17 23:18 - Constitutional Appears: Chronically Ill - Eye Exam Eye Exam: EOMI Pupil Exam: NORMAL ACCOMODATION - ENT Exam ENT Exam: Mucous Membranes Dry - Respiratory Exam Respiratory Exam: Clear to Ausculation Bilateral - Cardiovascular Exam Cardiovascular Exam: REGULAR RHYTHM - GI/Abdominal Exam GI & Abdominal Exam: Normal Bowel Sounds - Exam External exam: NORMAL EXTERNAL EXAM - Extremities Exam Extremities Exam: Normal Inspection - Neurological Exam Neurological Exam: Alert - Skin Skin Exam: Normal Color Assessment and Plan - Assessment and Plan (Free Text) Assessment: 1. Severe cardiomyopathy: Etiology: Undocumented [place] vs taketsubo. Pt is still spiking temps, too ill for cath. 2. Milrinone has resulted in better urine output. Will continue for another day. 3. pt is anurag beta hector. Once off milrinone, will add hydralazine nitrates, not mukul or arb as NA has been very high. 4. No recurrent afib.
--- NOTE | 2017-09-07 16:57 | CARD ---
APPROVED REPORT EKG Measurement Heart [id number] [place] [id number] [id number] <Conclusion> Sinus tachycardia with premature atrial complexes Rightward axis Low voltage QRS Septal infarct, age undetermined Abnormal ECG
--- NOTE | 2017-09-07 16:57 | CARD ---
APPROVED REPORT EKG Measurement Heart [id number] <Conclusion> Sinus tachycardia Low voltage QRS Septal infarct, age undetermined Abnormal ECG
--- NOTE | 2017-09-07 18:15 | CP.PCM.PN ---
Subjective - Date & Time of Evaluation Date of Evaluation: 09/07/17 Time of Evaluation: 18:12 - Subjective Subjective: still on ventilator sleepy tachycardia Objective - Vital Signs/Intake and Output Vital Signs (last 24 hours): Temp Pulse Resp BP Pulse Ox 100.8 F H 104 H 19 130/68 97 09/07/17 16:00 09/07/17 16:00 09/07/17 16:00 09/07/17 17:56 09/07/17 16:00 Intake and Output: 09/07/17 09/07/17 06:59 18:59 Intake Total 1277.5 1119.0 Output Total 1000 50 Balance 277.5 1069.0 - Medications Medications: Current Medications Acetaminophen (Tylenol 650mg/20.3ml Solution Ud) 650 mg PO Q4 PRN PRN Reason: for temperature >101 F Last Admin: 09/07/17 06:52 Dose: 650 mg Albuterol/Ipratropium (Duoneb 3 Mg/0.5 Mg (3 Ml) Ud) 3 ml INH RQ6 [facility] Last Admin: 09/07/17 13:11 Dose: 3 ml Aspirin (Aspirin Chewable) 81 mg PO DAILY [facility] Last Admin: 09/07/17 10:07 Dose: 81 mg Heparin Sodium (Porcine) (Heparin) 5,000 units SC Q12 [facility] Last Admin: 09/07/17 10:10 Dose: 5,000 units Propofol (Diprivan) 1,000 mg in 100 mls @ 3.889 mls/hr IV .Q24H PRN; Protocol; 10 MCG/KG/MIN PRN Reason: TITRATE PER MD ORDER Last Admin: 09/07/17 17:44 Dose: 60.16 mcg/kg/min, 23.4 mls/hr Milrinone Lactate/Dextrose 20 (mg/ Sodium Chloride) 100 mls @ 8.53 mls/hr IV .[id number] [facility] PRN Reason: 0.43 MCG/KG/MIN Last Admin: 09/07/17 08:48 Dose: 8.53 mls/hr Meropenem 1 gm/ Sodium (Chloride) 100 mls @ 100 mls/hr IVPB Q8H [facility] Azithromycin 500 mg/ Sodium (Chloride) 250 mls @ 250 mls/hr IVPB Q24H [facility] Insulin Human Regular (Novolin R) 0 unit SC Q6H [facility] PRN Reason: Protocol Last Admin: 09/07/17 17:46 Dose: 3 unit Methylprednisolone (Solu-Medrol) 20 mg IVP BID [facility] Last Admin: 09/07/17 09:45 Dose: 20 mg Metoprolol Tartrate (Lopressor) 25 mg PO BID [facility] Last Admin: 09/07/17 17:56 Dose: 25 mg Pantoprazole Sodium (Protonix Inj) 40 mg IVP DAILY [facility] Last Admin: 09/07/17 09:45 Dose: 40 mg - Labs Labs: 09/07/17 06:24 09/07/17 06:23 PT 12.6 SECONDS (9.7-12.2) H 08/30/17 23:18 INR 1.1 08/30/17 23:18 APTT 28 SECONDS (21-34) 08/30/17 23:18 - Constitutional Appears: Cachectic - Head Exam Head Exam: ATRAUMATIC - Eye Exam Eye Exam: EOMI Pupil Exam: NORMAL ACCOMODATION - Neck Exam Neck Exam: Full ROM - Respiratory Exam Respiratory Exam: Decreased Breath Sounds, Rales - Cardiovascular Exam Cardiovascular Exam: Tachycardia, REGULAR RHYTHM - GI/Abdominal Exam GI & Abdominal Exam: Normal Bowel Sounds - Extremities Exam Extremities Exam: Normal Inspection - Neurological Exam Neurological Exam: Alert - Psychiatric Exam Psychiatric exam: Normal Affect - Skin Skin Exam: Pallor Assessment and Plan - Assessment and Plan (Free Text) Assessment: resp fialiur ht fialiur cardiomyopathy aneamia pnumonia Plan: as per icu orders
[2017-09-07] MEDS: Azithromycin 500 MG in Sodium Chloride 0.9% 250 ML IVPB SCH (18:27)
[2017-09-07] MEDS: Meropenem 1 GM in Sodium Chloride 0.9% 100 ML IVPB SCH (18:31)
--- NOTE | 2017-09-07 19:20 | CP.PCM.CON ---
History of Present Illness - History of Present Illness History of Present Illness: INFECTIOUS DISEASE CONSULT; HPI; HISTORY OBTAINED FROM [facility] DR DUKES ,CHART, AND STAFF. ALSO NOTES AND CONSULTS NOTED. RADIOLOGY REVIEWED, LABS REVIEWED. 72-year-old female with history off COPD, asthma, diabetes, CHF, anxiety and history of bilateral mastectomy for CA of the breast, who was admitted on with shortness of breath, dyspnea on exertion and nonproductive cough. She had 2 previous trials of by mouth antibiotics with Zithromax and Levaquin before coming to the hospital. On admission chest x-ray was significant for right lower lobe pneumonia and small bilateral pleural effusions. Patient was treated with Zosyn and IV Solu- Medrol. On August 31 patient had a rapid response and developed hypoxemia and required intubation and transferred to ICU. Patient's sputum cultures came back positive for Klebsiella pneumoniae and YEAST species. Patient was switched from Zosyn to Merrem in view of the sensitivity of Klebsiella pneumoniae.patient also placed on Zithromax for atypical pathogens. Patient echo is consistent with poor ejection fraction of less than 15% and patient is started on Primacor. Infectious disease consult requested by pediatrics teacher luis angel Kim for persistent fevers of 101 and increasing leukocytosis of 19,000. Patient's urinalysis also shows moderate use yeast with slightly elevated liver function tests with AST of 61 and ALT of 101. PATIENT HAS NO RECENT HISTORY OF TRAVEL OR SICK CONTACTS. Chest x-ray still shows patchy bilateral lower lobes/right upper lobe infiltrates with small effusions. Weaning off the ventilator hasn't been successful so far. ALLERGY; ADHESIVE TAPE, LATEX. Past medical history Anxiety, asthma, CHF, COPD, diabetes mellitus, emphysema. PSH; BREAST CANCER with bilateral mastectomy Social history , lives at home, daughter Anjali is primary acute care clinical nurse specialist and it's very much involved in care Family history Diabetes and hypertension in family Review of Systems - Review of Systems Systems not reviewed;Unavailable: Intubated All systems: reviewed and no additional remarkable complaints except (as per HPI.) - Constitutional Constitutional: Fever, Lethargy Past Patient History - Past Medical History & Family History Past Medical History?: Yes - Past Social History Smoking Status: Never Smoked - CARDIAC Hx Congestive Heart Failure: Yes - PULMONARY Hx Asthma: Yes Hx Chronic Obstructive Pulmonary Disease (COPD): Yes Hx Emphysema: Yes - NEUROLOGICAL Hx Neurological Disorder: No - HEENT Hx Cataracts: Yes - RENAL Hx Chronic Kidney Disease: No - ENDOCRINE/METABOLIC Hx Endocrine Disorders: No - HEMATOLOGICAL/ONCOLOGICAL Hx Blood Disorders: No - INTEGUMENTARY Hx Dermatological Problems: No - MUSCULOSKELETAL/RHEUMATOLOGICAL Hx Falls: No - GASTROINTESTINAL Hx Gastrointestinal Disorders: No - GENITOURINARY/GYNECOLOGICAL Hx Genitourinary Disorders: No - PSYCHIATRIC Hx Anxiety: Yes Hx Substance Use: No - SURGICAL HISTORY Hx Surgeries: Yes Hx Cataract Extraction: Yes Other/Comment: R mastectomy 8 yrs ago L mastectomy 6 yrs ago - ANESTHESIA Hx Anesthesia: Yes Hx Anesthesia Reactions: No Meds Allergies/Adverse Reactions: Allergies Allergy/AdvReac Type Severity Reaction Status Date / Time adhesive tape Allergy Verified 08/30/17 21:45 latex Allergy Verified 08/30/17 21:45 - Medications Medications: Current Medications Acetaminophen (Tylenol 650mg/20.3ml Solution Ud) 650 mg PO Q4 PRN PRN Reason: for temperature >101 F Last Admin: 09/07/17 06:52 Dose: 650 mg Albuterol/Ipratropium (Duoneb 3 Mg/0.5 Mg (3 Ml) Ud) 3 ml INH RQ6 [facility] Last Admin: 09/07/17 19:12 Dose: 3 ml Aspirin (Aspirin Chewable) 81 mg PO DAILY [facility] Last Admin: 09/07/17 10:07 Dose: 81 mg Heparin Sodium (Porcine) (Heparin) 5,000 units SC Q12 [facility] Last Admin: 09/07/17 10:10 Dose: 5,000 units Propofol (Diprivan) 1,000 mg in 100 mls @ 3.889 mls/hr IV .Q24H PRN; Protocol; 10 MCG/KG/MIN PRN Reason: TITRATE PER MD ORDER Last Admin: 09/07/17 17:44 Dose: 60.16 mcg/kg/min, 23.4 mls/hr Milrinone Lactate/Dextrose 20 (mg/ Sodium Chloride) 100 mls @ 8.53 mls/hr IV .[id number] [facility] PRN Reason: 0.43 MCG/KG/MIN Last Admin: 09/07/17 08:48 Dose: 8.53 mls/hr Meropenem 1 gm/ Sodium (Chloride) 100 mls @ 100 mls/hr IVPB Q8H [facility] Last Admin: 09/07/17 18:31 Dose: 100 mls/hr Azithromycin 500 mg/ Sodium (Chloride) 250 mls @ 250 mls/hr IVPB Q24H [facility] Last Admin: 09/07/17 18:27 Dose: 250 mls/hr Insulin Human Regular (Novolin R) 0 unit SC Q6H [facility] PRN Reason: Protocol Last Admin: 09/07/17 17:46 Dose: 3 unit Methylprednisolone (Solu-Medrol) 20 mg IVP BID [facility] Last Admin: 09/07/17 09:45 Dose: 20 mg Metoprolol Tartrate (Lopressor) 25 mg PO BID [facility] Last Admin: 09/07/17 17:56 Dose: 25 mg Pantoprazole Sodium (Protonix Inj) 40 mg IVP DAILY [facility] Last Admin: 09/07/17 09:45 Dose: 40 mg Physical Exam - Constitutional Appears: No Acute Distress (intubated) - Eye Exam Eye Exam: PERRL. absent: Scleral icterus - ENT Exam ENT Exam: Mucous Membranes Dry - Neck Exam Neck exam: Positive for: Normal Inspection - Respiratory Exam Respiratory Exam: Decreased Breath Sounds (basis.), Prolonged Expiratory Phase - Cardiovascular Exam Cardiovascular Exam: REGULAR RHYTHM, +S1, +S2 - GI/Abdominal Exam GI & Abdominal Exam: Normal Bowel Sounds. absent: Tenderness - Extremities Exam Extremities exam: Positive for: pedal edema (1+), pedal pulses present. Negative for: calf tenderness - Neurological Exam Neurological exam: Alert, CN II-XII Intact - Psychiatric Exam Psychiatric exam: Flat Affect - Skin Skin Exam: Normal Color, Warm Results - Vital Signs Recent Vital Signs: Last Vital Signs Temp 100.8 F H 09/07/17 16:00 Pulse 104 H 09/07/17 16:00 Resp 19 09/07/17 16:00 BP 130/68 09/07/17 17:56 Pulse Ox 97 09/07/17 16:00 - Labs Result Diagrams: 09/07/17 06:24 09/07/17 06:23 Labs: Laboratory Results - last 24 hr 09/03/17 09/06/17 09/06/17 09:50 18:09 18:09 WBC RBC Hgb Hct MCV MCH MCHC RDW Plt Count MPV Neut % (Auto) Lymph % (Auto) [place] % (Auto) Eos % (Auto) Baso % (Auto) Neut # (Auto) Lymph # (Auto) [place] # (Auto) Eos # (Auto) Baso # (Auto) Neutrophils % (Manual) Band Neutrophils % Lymphocytes % (Manual) Monocytes % (Manual) Nucleated RBC % Platelet Estimate Hypochromasia (manual) Poikilocytosis (manual Anisocytosis (manual) Microcytosis (manual) Target Cells Tear Drop Cells Ovalocytes [place] Cells Puncture Site pCO2 pO2 HCO3 ABG pH ABG Total CO2 ABG O2 Saturation ABG Base Excess ABG Hemoglobin ABG Carboxyhemoglobin POC ABG HHb (Measured) ABG Methemoglobin Bill Test A-a O2 Difference Respiratory Index Hgb O2 Saturation Vent Mode Mechanical Rate FiO2 Tidal Volume PEEP Sodium Potassium Chloride Carbon Dioxide Anion Gap BUN Creatinine Est GFR ( Amer) Est GFR (Non-Af Amer) POC Glucose (mg/dL) Random Glucose Calcium Total Bilirubin AST ALT Alkaline Phosphatase Total Protein Albumin Globulin Albumin/Globulin Ratio Procalcitonin 0.08 L Urine Color Urine Clarity Urine pH Ur Specific [place] Urine Protein Urine Glucose (UA) Urine Ketones Urine Blood Urine Nitrate Urine Bilirubin Urine Urobilinogen Ur Leukocyte Esterase Urine WBC (Auto) Urine RBC (Auto) Ur Squamous Epith Cells Uric Acid Crystals Urine Bacteria Urine Yeast (Budding) C. difficile Tox B Gene Not detected Mycoplasma pneumon IgM Negative 09/06/17 09/07/17 09/07/17 23:55 05:07 05:59 WBC RBC Hgb Hct MCV MCH MCHC RDW Plt Count MPV Neut % (Auto) Lymph % (Auto) [place] % (Auto) Eos % (Auto) Baso % (Auto) Neut # (Auto) Lymph # (Auto) [place] # (Auto) Eos # (Auto) Baso # (Auto) Neutrophils % (Manual) Band Neutrophils % Lymphocytes % (Manual) Monocytes % (Manual) Nucleated RBC % Platelet Estimate Hypochromasia (manual) Poikilocytosis (manual Anisocytosis (manual) Microcytosis (manual) Target Cells Tear Drop Cells Ovalocytes [place] Cells Puncture Site Lr pCO2 45 pO2 82 HCO3 35.5 H ABG pH 7.53 H ABG Total CO2 39.0 H ABG O2 Saturation 99.4 H ABG Base Excess 13.6 H ABG Hemoglobin 7.8 L ABG Carboxyhemoglobin 2.5 H POC ABG HHb (Measured) 0.6 ABG Methemoglobin 0.8 Bill Test Pos A-a O2 Difference 218.0 Respiratory Index 2.7 Hgb O2 Saturation 96.1 Vent Mode Prvc Mechanical Rate 18 FiO2 50.0 Tidal Volume 500 PEEP 5 Sodium Potassium Chloride Carbon Dioxide Anion Gap BUN Creatinine Est GFR ( Amer) Est GFR (Non-Af Amer) POC Glucose (mg/dL) 177 H 124 H Random Glucose Calcium Total Bilirubin AST ALT Alkaline Phosphatase Total Protein Albumin Globulin Albumin/Globulin Ratio Procalcitonin Urine Color Urine Clarity Urine pH Ur Specific [place] Urine Protein Urine Glucose (UA) Urine Ketones Urine Blood Urine Nitrate Urine Bilirubin Urine Urobilinogen Ur Leukocyte Esterase Urine WBC (Auto) Urine RBC (Auto) Ur Squamous Epith Cells Uric Acid Crystals Urine Bacteria Urine Yeast (Budding) C. difficile Tox B Gene Mycoplasma pneumon IgM 09/07/17 09/07/17 09/07/17 06:23 06:24 11:29 WBC 18.7 H RBC 3.68 L Hgb 8.4 L Hct 28.3 L MCV 76.8 L MCH 22.9 L MCHC 29.9 L RDW 22.1 H Plt Count 263 MPV 9.4 Neut % (Auto) 84.2 H Lymph % (Auto) 6.4 L [place] % (Auto) 9.2 Eos % (Auto) 0.1 Baso % (Auto) 0.1 Neut # (Auto) 15.8 H Lymph # (Auto) 1.2 [place] # (Auto) 1.7 H Eos # (Auto) 0.0 Baso # (Auto) 0.0 Neutrophils % (Manual) 86 H Band Neutrophils % 1 Lymphocytes % (Manual) 5 L Monocytes % (Manual) 8 Nucleated RBC % 3 H Platelet Estimate Normal Hypochromasia (manual) Slight Poikilocytosis (manual Slight Anisocytosis (manual) Slight Microcytosis (manual) Slight Target Cells Slight Tear Drop Cells Slight Ovalocytes Slight [place] Cells Slight Puncture Site pCO2 pO2 HCO3 ABG pH ABG Total CO2 ABG O2 Saturation ABG Base Excess ABG Hemoglobin ABG Carboxyhemoglobin POC ABG HHb (Measured) ABG Methemoglobin Bill Test A-a O2 Difference Respiratory Index Hgb O2 Saturation Vent Mode Mechanical Rate FiO2 Tidal Volume PEEP Sodium 159 H Potassium 4.4 Chloride 115 H Carbon Dioxide 38 H Anion Gap 10 BUN 38 H Creatinine 0.8 Est GFR ( Amer) > 60 Est GFR (Non-Af Amer) > 60 POC Glucose (mg/dL) 167 H Random Glucose 123 H Calcium 8.9 Total Bilirubin 0.4 AST 61 H ALT 101 H Alkaline Phosphatase 80 Total Protein 5.7 L Albumin 2.9 L Globulin 2.8 Albumin/Globulin Ratio 1.1 Procalcitonin Urine Color Urine Clarity Urine pH Ur Specific [place] Urine Protein Urine Glucose (UA) Urine Ketones Urine Blood Urine Nitrate Urine Bilirubin Urine Urobilinogen Ur Leukocyte Esterase Urine WBC (Auto) Urine RBC (Auto) Ur Squamous Epith Cells Uric Acid Crystals Urine Bacteria Urine Yeast (Budding) C. difficile Tox B Gene Mycoplasma pneumon IgM 09/07/17 09/07/17 09/07/17 11:35 11:35 17:43 WBC RBC Hgb Hct MCV MCH MCHC RDW Plt Count MPV Neut % (Auto) Lymph % (Auto) [place] % (Auto) Eos % (Auto) Baso % (Auto) Neut # (Auto) Lymph # (Auto) [place] # (Auto) Eos # (Auto) Baso # (Auto) Neutrophils % (Manual) Band Neutrophils % Lymphocytes % (Manual) Monocytes % (Manual) Nucleated RBC % Platelet Estimate Hypochromasia (manual) Poikilocytosis (manual Anisocytosis (manual) Microcytosis (manual) Target Cells Tear Drop Cells Ovalocytes [place] Cells Puncture Site pCO2 pO2 HCO3 ABG pH ABG Total CO2 ABG O2 Saturation ABG Base Excess ABG Hemoglobin ABG Carboxyhemoglobin POC ABG HHb (Measured) ABG Methemoglobin Bill Test A-a O2 Difference Respiratory Index Hgb O2 Saturation Vent Mode Mechanical Rate FiO2 Tidal Volume PEEP Sodium Potassium Chloride Carbon Dioxide Anion Gap BUN Creatinine Est GFR ( Amer) Est GFR (Non-Af Amer) POC Glucose (mg/dL) 231 H Random Glucose Calcium Total Bilirubin AST ALT Alkaline Phosphatase Total Protein Albumin Globulin Albumin/Globulin Ratio Procalcitonin 0.09 L Urine Color Yellow Urine Clarity Hazy Urine pH 5.0 Ur Specific [place] 1.018 Urine Protein Negative Urine Glucose (UA) Normal Urine Ketones Negative Urine Blood 1+ H Urine Nitrate Negative Urine Bilirubin Negative Urine Urobilinogen Normal Ur Leukocyte Esterase 1+ H Urine WBC (Auto) 19 H Urine RBC (Auto) 50 H Ur Squamous Epith Cells 5 Uric Acid Crystals Few H Urine Bacteria Few H Urine Yeast (Budding) Mod H C. difficile Tox B Gene Mycoplasma pneumon IgM - Imaging and Cardiology Chest x-ray Status: Report reviewed by me (chest x-ray 09/06/17 noted patchy bilateral lower lobe mid lung and right upper lobe infiltrates small left pleural effusion.) Assessment & Plan (1) Respiratory failure Status: Acute (2) Fever Status: Acute (3) Pneumonia Status: Acute (4) COPD exacerbation Status: Acute (5) CHF (congestive heart failure) Status: Acute (6) Severe anemia Status: Acute (7) Type II diabetes mellitus Status: Acute (8) History of bilateral mastectomy Status: Acute - Assessment and Plan (Free Text) Plan: PLAN; PANCULTURES bLOOD CULTURES 2 SETS FOR FUNGUS uRINE CULTURES -P CONTINUE iv MEROPENEM 1 G EVERY 8 HOURLY 09/07/17. CONTINUE iv zITHROMAX 500 MG EVERY d DAILY. 09/07/17. ADD IV MYCAFUNGIN 100 MG iv PIGGYBACK ONCE A DAY DAILY .09/07/17. PATIENT ALSO ON STEROIDS IV FLUIDS PER [facility]/ DR Sandi LUZ.. fOLLOW-UP BLOOD WORKS, LFTS AND BLOOD CULTURES. THANK YOU VERY MUCH FOR ALLOWING ME TO PARTICIPATE IN THE CARE OF THIS PATIENT. WILL MAKE ADJUSTMENTS NEEDED.
[2017-09-07] MEDS: Micafungin 100 MG in Sodium Chloride 0.9% 100 ML IV SCH (21:39)
[2017-09-08] MEDS: Propofol 10 mg/ml 1,000 MG/100 ML VIAL IV PRN ×5 (00:36→23:05)
[2017-09-08] MEDS: (Novolin R) Insulin Human Regular 100 units/ml vial SC SCH ×4 (00:37→17:57)
[2017-09-08] MEDS: Albuterol-Ipratrop 3 mg / 0.5 (3 ml) UD INH SCH ×4 (02:23→20:17)
[2017-09-08] MEDS: Meropenem 1 GM in Sodium Chloride 0.9% 100 ML IVPB SCH ×3 (02:23→19:24)
[2017-09-08 05:21] LABS: ABG ALLEN TEST POS; ARTERIAL BLOOD GAS HCO3 37.9 mmol/L (21-28); ARTERIAL BLOOD GAS HEMOGLOBIN 8.1 g/dL (11.7-17.4); ARTERIAL BLOOD GAS O2 SAT 97.2 % (95-98); ARTERIAL BLOOD GAS PCO2 52 mm/Hg (35-45); ARTERIAL BLOOD GAS PH 7.51 (7.35-7.45); ARTERIAL BLOOD GAS PO2 67 mm/Hg (80-100); ARTERIAL BLOOD GAS TCO2 43.1 mmol/L (22-28)
[2017-09-08 06:26] LABS: BASO # 0.1 K/uL (0.0-0.2); BASO % 0.7 % (0.0-2.0); EOS # 0.1 K/uL (0.0-0.7); EOS % 0.5 % (0.0-4.0); HEMOGLOBIN 7.9 g/dL (11.0-16.0); LYMPH # 1.2 K/uL (1.0-4.3); MEAN CELL VOLUME 77.2 fL (81.0-99.0); MEAN CORPUSCULAR HEMOGLOBIN 22.8 pg (27.0-31.0); MEAN CORPUSCULAR HGB CONC 29.5 g/dL (33.0-37.0); MEAN PLATELET VOLUME 9.7 fL (7.2-11.7); MONO # 1.1 K/uL (0.0-0.8); MONO % 7.8 % (0.0-10.0); NRBC % 0.5 % (0.0-2.0); PLATELET COUNT 214 K/uL (130-400); RBC 3.49 Mil/uL (3.80-5.20); RED CELL DISTRIBUTION WIDTH 22.7 % (11.5-14.5); WHITE BLOOD COUNT 14.5 K/uL (4.8-10.8)
[2017-09-08 06:37] LABS: ALBUMIN 2.8 g/dL (3.5-5.0); ALT/SGPT 105 U/L (9-52); AST/SGOT 42 U/L (14-36); BLOOD UREA NITROGEN 31 mg/dL (7-17); CALCIUM 8.5 mg/dl (8.6-10.4); GFR AFRICAN-AMERICAN > 60; GFR NON-AFRICAN AMERICAN > 60
[2017-09-08 08:19] LABS: EOSINOPHIL 1 % (0-4); TOTAL CELLS COUNTED 100
[2017-09-08 08:20] LABS: PLATELET ESTIMATE NORMAL (NORMAL)
[2017-09-08 08:21] LABS: NEUTROPHIL 85 % (50-75)
[2017-09-08 08:22] LABS: MONOCYTE 6 % (0-10)
[2017-09-08 08:23] LABS: ANISOCYTOSIS MODERATE; LYMPHOCYTE 8 % (20-40)
[2017-09-08 08:24] LABS: BURR CELLS MODERATE; POIKILOCYTOSIS MODERATE
[2017-09-08 08:25] LABS: HYPOCHROMIC MODERATE; MICROCYTOSIS SLIGHT; OVALOCYTES SLIGHT; POLYCHROMIC SLIGHT; TARGET CELLS SLIGHT
[2017-09-08 08:26] LABS: LARGE PLATELETS PRESENT; TEARDROP CELLS SLIGHT
[2017-09-08 08:28] LABS: MAGNESIUM 2.2 mg/dL (1.6-2.3)
--- NOTE | 2017-09-08 09:10 | RAD ---
Chest x-ray single frontal view History: Intubation. Comparison: 09/07/2017 Findings: Lines and tubes in stable position. Biapical pleural thickening with upper lobe granulomatous changes. Prominent diffuse increased interstitial markings. Consolidative changes in the left mid to lower lung zone with small left pleural effusion. Calcification at the aortic knob. Tortuous aorta. Cardiomegaly. Status post median sternotomy. Surgical clips in the left axilla. Impression Lines and tubes in stable position. Biapical pleural thickening with upper lobe granulomatous changes. Prominent diffuse increased interstitial markings. Consolidative changes in the left mid to lower lung zone with small left pleural effusion. Calcification at the aortic knob. Tortuous aorta. Cardiomegaly.
[2017-09-08] MEDS: MethylPREDNISolone 40 mg Vial IVP SCH ×2 (09:58→17:58)
--- NOTE | 2017-09-08 10:02 | CP.PCM.PN ---
Subjective - Date & Time of Evaluation Date of Evaluation: 09/08/17 Time of Evaluation: 09:59 - Subjective Subjective: Pt on vent, alert, nad Objective - Vital Signs/Intake and Output Vital Signs (last 24 hours): Temp Pulse Resp BP Pulse Ox 100 F H 100 H 19 111/57 L 95 09/08/17 04:00 09/08/17 09:56 09/08/17 09:56 09/08/17 09:56 09/08/17 06:00 Intake and Output: 09/08/17 09/08/17 06:59 18:59 Intake Total 1332.8 100 Output Total 735 Balance 597.8 100 - Medications Medications: Current Medications Acetaminophen (Tylenol 650mg/20.3ml Solution Ud) 650 mg PO Q4 PRN PRN Reason: for temperature >101 F Last Admin: 09/07/17 06:52 Dose: 650 mg Albuterol/Ipratropium (Duoneb 3 Mg/0.5 Mg (3 Ml) Ud) 3 ml INH RQ6 [facility] Last Admin: 09/08/17 08:00 Dose: 3 ml Aspirin (Aspirin Chewable) 81 mg PO DAILY [facility] Last Admin: 09/08/17 09:44 Dose: 81 mg Heparin Sodium (Porcine) (Heparin) 5,000 units SC Q12 [facility] Last Admin: 09/08/17 09:46 Dose: 5,000 units Propofol (Diprivan) 1,000 mg in 100 mls @ 3.889 mls/hr IV .Q24H PRN; Protocol; 10 MCG/KG/MIN PRN Reason: TITRATE PER MD ORDER Last Admin: 09/08/17 09:54 Dose: 60.16 mcg/kg/min, 23.4 mls/hr Milrinone Lactate/Dextrose 20 (mg/ Sodium Chloride) 100 mls @ 8.53 mls/hr IV .[id number] [facility] PRN Reason: 0.43 MCG/KG/MIN Last Admin: 09/08/17 09:56 Dose: 8.53 mls/hr Meropenem 1 gm/ Sodium (Chloride) 100 mls @ 100 mls/hr IVPB Q8H [facility] Last Admin: 09/08/17 02:23 Dose: 100 mls/hr Azithromycin 500 mg/ Sodium (Chloride) 250 mls @ 250 mls/hr IVPB Q24H [facility] Last Admin: 09/07/17 18:27 Dose: 250 mls/hr Micafungin Sodium 100 mg/ (Sodium Chloride) 100 mls @ 100 mls/hr IV Q24H [facility] Last Admin: 09/07/17 21:39 Dose: 100 mls/hr Insulin Human Regular (Novolin R) 0 unit SC Q6H [facility] PRN Reason: Protocol Last Admin: 09/08/17 06:57 Dose: Not Given Methylprednisolone (Solu-Medrol) 20 mg IVP BID [facility] Last Admin: 09/08/17 09:58 Dose: 20 mg Metoprolol Tartrate (Lopressor) 25 mg PO BID [facility] Last Admin: 09/08/17 09:39 Dose: Not Given Pantoprazole Sodium (Protonix Inj) 40 mg IVP DAILY [facility] Last Admin: 09/08/17 09:48 Dose: 40 mg - Labs Labs: 09/08/17 06:18 09/08/17 06:17 PT 12.6 SECONDS (9.7-12.2) H 08/30/17 23:18 INR 1.1 08/30/17 23:18 APTT 28 SECONDS (21-34) 08/30/17 23:18 - Constitutional Appears: Chronically Ill - Head Exam Head Exam: ATRAUMATIC - ENT Exam ENT Exam: Mucous Membranes Moist - Neck Exam Neck Exam: Full ROM - Respiratory Exam Respiratory Exam: Decreased Breath Sounds - Cardiovascular Exam Cardiovascular Exam: REGULAR RHYTHM - GI/Abdominal Exam GI & Abdominal Exam: Normal Bowel Sounds - Extremities Exam Extremities Exam: Normal Inspection - Back Exam Back Exam: NORMAL INSPECTION - Neurological Exam Neurological Exam: Alert, Normal Gait Assessment and Plan - Assessment and Plan (Free Text) Assessment: 1. Pt had had better urine out put, NA remains high. Hgb gradually dropping. CXR shows interstitial markings. If pt is to have a transfusion, would continue milrinone during and after transfusion to avoid chf. . If not, would transition to hydralazine and nitrates. if pt improves, afebrile, extubated, cath can be entertained in the future.
--- NOTE | 2017-09-08 17:21 | CP.CCUPN ---
<Scott Mujica - Last Filed: 09/08/17 18:32> CCU Subjective - Physician Review Events Since Last Encounter (Free Text): 09/08/17 17:22 Per nursing no acute event occurred overnight. Patient seen and examined at bedside. Subjective (Free Text): 09/05/17 11:17 Patient seen and examined at bedside. Per nursing no acute events overnight 09/05/17 16:21 Critical Care Time Spent (in minutes): 45 CCU Objective - Vital Signs / Intake & Output Vital Signs (Last 4 hours): Vital Signs Temp Pulse Resp BP Pulse Ox 09/08/17 16:00 99.1 F 95 09/08/17 15:59 112 H 18 131/69 09/08/17 14:59 123 H 22 135/70 90 L Intake and Output (Last 8hrs): Intake & Output 09/08/17 09/08/17 09/08/17 06:59 14:59 22:59 Intake Total 905.2 713.9 48.2 Output Total 395 410 110 Balance 510.2 303.9 -61.8 Intake: IV 200 125 Intake, IV Amount 355.2 288.9 48.2 Right Distal Port 187.2 120.9 31.2 Internal Jugular Right Medial Port 100 100 Internal Jugular Right Proximal Port 68.0 68.0 17.0 Internal Jugular Tube Feeding 350 300 0 Output: Urine 395 410 110 Urethral (Rico) 395 410 110 Other: # Bowel Movements 1 1 - Physical Exam Head: Positive for: Atraumatic, Normocephalic Pupils: Positive for: PERRL Mouth: Positive for: Moist Mucous Membranes Respiratory/Chest: Positive for: Good Air Exchange, Wheezes, Rhonchi Cardiovascular: Positive for: Regular Rate and Rhythm, Normal S1, S2 Abdomen: Positive for: Normal Bowel Sounds Upper Extremity: Positive for: Normal Inspection - Medications Active Medications: Active Medications Generic Name Dose Route Start Last Admin Trade Name Freq PRN Reason Stop Dose Admin Acetaminophen 650 mg 09/03/17 22:46 09/07/17 06:52 Tylenol 650mg/20.3ml Solution Ud PO 650 mg Q4 PRN Administration for temperature >101 F Albuterol/Ipratropium 3 ml 09/06/17 02:00 09/08/17 13:26 Duoneb 3 Mg/0.5 Mg (3 Ml) Ud INH Not Given RQ6 JENNIFER Aspirin 81 mg 09/02/17 10:30 09/08/17 09:44 Aspirin Chewable PO 81 mg DAILY JENNIFER Administration Heparin Sodium (Porcine) 5,000 units 09/02/17 22:00 09/08/17 09:46 Heparin SC 5,000 units Q12 JENNIFER Administration Propofol 1,000 mg in 100 mls @ 3.889 mls/hr 09/02/17 14:40 09/08/17 13:48 Diprivan IV 40 mcg/kg/min .Q24H PRN 15.6 mls/hr TITRATE PER MD ORDER Titration Protocol 10 MCG/KG/MIN Meropenem 1 gm/ Sodium 100 mls @ 100 mls/hr 09/07/17 19:00 09/08/17 10:44 Chloride IVPB 100 mls/hr Q8H JENNIFER Administration Azithromycin 500 mg/ Sodium 250 mls @ 250 mls/hr 09/07/17 18:00 09/07/17 18: 27 Chloride IVPB 250 mls/hr Q24H JENNIFER Administration Micafungin Sodium 100 mg/ 100 mls @ 100 mls/hr 09/07/17 20:00 09/07/17 21:39 Sodium Chloride IV 100 mls/hr Q24H JENNIFER Administration Insulin Human Regular 0 unit 09/07/17 00:00 09/08/17 12:10 Novolin R SC 2 unit Q6H JENNIFER Administration Protocol Methylprednisolone 20 mg 09/05/17 18:00 09/08/17 09:58 Solu-Medrol IVP 20 mg BID JENNIFER Administration Metoprolol Tartrate 25 mg 09/06/17 10:00 09/08/17 09:39 Lopressor PO Not Given BID [facility] Pantoprazole Sodium 40 mg 09/02/17 10:45 09/08/17 09:48 Protonix Inj IVP 40 mg DAILY JENNIFER Administration - Patient Studies Lab Studies: Microbiology Studies 09/05/17 11:40 Blood Culture - Preliminary Blood NO GROWTH AFTER 3 DAYS 09/05/17 11:16 Blood Culture - Preliminary Blood NO GROWTH AFTER 3 DAYS 09/07/17 10:25 Urine Culture - Final Urine,Catheterized Yeast Species 09/03/17 23:00 Blood Culture - Preliminary Blood NO GROWTH AFTER 4 DAYS 09/03/17 23:30 Blood Culture - Preliminary Blood NO GROWTH AFTER 4 DAYS Lab Studies 09/08/17 09/08/17 09/08/17 Range/Units 11:35 06:18 06:17 WBC 14.5 H (4.8-10.8) K/uL RBC 3.49 L (3.80-5.20) Mil/uL Hgb 7.9 L (11.0-16.0) g/dL Hct 26.9 L (34.0-47.0) % MCV 77.2 L (81.0-99.0) fL MCH 22.8 L (27.0-31.0) pg MCHC 29.5 L (33.0-37.0) g/dL RDW 22.7 H (11.5-14.5) % Plt Count 214 (130-400) K/uL MPV 9.7 (7.2-11.7) fL Neut % (Auto) 83.0 H (50.0-75.0) % Lymph % (Auto) 8.0 L (20.0-40.0) % Patrick % (Auto) 7.8 (0.0-10.0) % Eos % (Auto) 0.5 (0.0-4.0) % Baso % (Auto) 0.7 (0.0-2.0) % Neut # (Auto) 12.0 H (1.8-7.0) K/uL Lymph # (Auto) 1.2 (1.0-4.3) K/uL Patrick # (Auto) 1.1 H (0.0-0.8) K/uL Eos # (Auto) 0.1 (0.0-0.7) K/uL Baso # (Auto) 0.1 (0.0-0.2) K/uL Neutrophils % (Manual) 85 H (50-75) % Lymphocytes % (Manual) 8 L (20-40) % Monocytes % (Manual) 6 (0-10) % Eosinophils % (Manual) 1 (0-4) % Platelet Estimate Normal (NORMAL) Large Platelets Present Polychromasia Slight Hypochromasia (manual) Moderate Poikilocytosis (manual Moderate Anisocytosis (manual) Moderate Microcytosis (manual) Slight Macrocytosis (manual) Slight Target Cells Slight Tear Drop Cells Slight Ovalocytes Slight Roseanne Cells Moderate Puncture Site pCO2 (35-45) mm/Hg pO2 (80-100) mm/Hg HCO3 (21-28) mmol/L ABG pH (7.35-7.45) ABG Total CO2 (22-28) mmol/L ABG O2 Saturation (95-98) % ABG Base Excess (-2.0-3.0) mmol/L ABG Hemoglobin (11.7-17.4) g/dL ABG Carboxyhemoglobin (0.5-1.5) % POC ABG HHb (Measured) (0.0-5.0) % ABG Methemoglobin (0.0-3.0) % Bill Test A-a O2 Difference mm/Hg Respiratory Index Hgb O2 Saturation (95.0-98.0) % Vent Mode Mechanical Rate FiO2 % Tidal Volume PEEP Sodium 157 H (132-148) mmol/L Potassium 4.0 (3.6-5.2) mmol/L Chloride 110 H (98-107) mmol/L Carbon Dioxide 40 H* (22-30) mmol/L Anion Gap 11 (10-20) BUN 31 H (7-17) mg/dL Creatinine 0.7 (0.7-1.2) mg/dL Est GFR ( Amer) > 60 Est GFR (Non-Af Amer) > 60 POC Glucose (mg/dL) 197 H (65-110) mg/dL Random Glucose 108 H (65-105) mg/dL Calcium 8.5 L (8.6-10.4) mg/dl Phosphorus 5.0 H (2.5-4.5) mg/dL Magnesium 2.2 (1.6-2.3) mg/dL Total Bilirubin 0.5 (0.2-1.3) mg/dL AST 42 H D (14-36) U/L ALT 105 H (9-52) U/L Alkaline Phosphatase 71 (38-126) U/L Total Protein 5.5 L (6.3-8.3) g/dL Albumin 2.8 L (3.5-5.0) g/dL Globulin 2.8 (2.2-3.9) gm/dL Albumin/Globulin Ratio 1.0 (1.0-2.1) Urine Chloride (32-290) mmol/L 09/08/17 09/07/17 09/07/17 Range/Units 05:06 23:55 17:43 WBC (4.8-10.8) K/uL RBC (3.80-5.20) Mil/uL Hgb (11.0-16.0) g/dL Hct (34.0-47.0) % MCV (81.0-99.0) fL MCH (27.0-31.0) pg MCHC (33.0-37.0) g/dL RDW (11.5-14.5) % Plt Count (130-400) K/uL MPV (7.2-11.7) fL Neut % (Auto) (50.0-75.0) % Lymph % (Auto) (20.0-40.0) % Patrick % (Auto) (0.0-10.0) % Eos % (Auto) (0.0-4.0) % Baso % (Auto) (0.0-2.0) % Neut # (Auto) (1.8-7.0) K/uL Lymph # (Auto) (1.0-4.3) K/uL Patrick # (Auto) (0.0-0.8) K/uL Eos # (Auto) (0.0-0.7) K/uL Baso # (Auto) (0.0-0.2) K/uL Neutrophils % (Manual) (50-75) % Lymphocytes % (Manual) (20-40) % Monocytes % (Manual) (0-10) % Eosinophils % (Manual) (0-4) % Platelet Estimate (NORMAL) Large Platelets Polychromasia Hypochromasia (manual) Poikilocytosis (manual Anisocytosis (manual) Microcytosis (manual) Macrocytosis (manual) Target Cells Tear Drop Cells Ovalocytes Roseanne Cells Puncture Site Lr pCO2 52 H (35-45) mm/Hg pO2 67 L (80-100) mm/Hg HCO3 37.9 H (21-28) mmol/L ABG pH 7.51 H (7.35-7.45) ABG Total CO2 43.1 H (22-28) mmol/L ABG O2 Saturation 97.2 (95-98) % ABG Base Excess 16.7 H (-2.0-3.0) mmol/L ABG Hemoglobin 8.1 L (11.7-17.4) g/dL ABG Carboxyhemoglobin 2.1 H (0.5-1.5) % POC ABG HHb (Measured) 2.7 (0.0-5.0) % ABG Methemoglobin 0.7 (0.0-3.0) % Bill Test Pos A-a O2 Difference 225.0 mm/Hg Respiratory Index 3.4 Hgb O2 Saturation 94.5 L (95.0-98.0) % Vent Mode Prvc Mechanical Rate 18 FiO2 50.0 % Tidal Volume 500 PEEP 5 Sodium (132-148) mmol/L Potassium (3.6-5.2) mmol/L Chloride (98-107) mmol/L Carbon Dioxide (22-30) mmol/L Anion Gap (10-20) BUN (7-17) mg/dL Creatinine (0.7-1.2) mg/dL Est GFR ( Amer) Est GFR (Non-Af Amer) POC Glucose (mg/dL) 106 231 H (65-110) mg/dL Random Glucose (65-105) mg/dL Calcium (8.6-10.4) mg/dl Phosphorus (2.5-4.5) mg/dL Magnesium (1.6-2.3) mg/dL Total Bilirubin (0.2-1.3) mg/dL AST (14-36) U/L ALT (9-52) U/L Alkaline Phosphatase (38-126) U/L Total Protein (6.3-8.3) g/dL Albumin (3.5-5.0) g/dL Globulin (2.2-3.9) gm/dL Albumin/Globulin Ratio (1.0-2.1) Urine Chloride (32-290) mmol/L 09/07/17 Range/Units 11:35 WBC (4.8-10.8) K/uL RBC (3.80-5.20) Mil/uL Hgb (11.0-16.0) g/dL Hct (34.0-47.0) % MCV (81.0-99.0) fL MCH (27.0-31.0) pg MCHC (33.0-37.0) g/dL RDW (11.5-14.5) % Plt Count (130-400) K/uL MPV (7.2-11.7) fL Neut % (Auto) (50.0-75.0) % Lymph % (Auto) (20.0-40.0) % Patrick % (Auto) (0.0-10.0) % Eos % (Auto) (0.0-4.0) % Baso % (Auto) (0.0-2.0) % Neut # (Auto) (1.8-7.0) K/uL Lymph # (Auto) (1.0-4.3) K/uL Patrick # (Auto) (0.0-0.8) K/uL Eos # (Auto) (0.0-0.7) K/uL Baso # (Auto) (0.0-0.2) K/uL Neutrophils % (Manual) (50-75) % Lymphocytes % (Manual) (20-40) % Monocytes % (Manual) (0-10) % Eosinophils % (Manual) (0-4) % Platelet Estimate (NORMAL) Large Platelets Polychromasia Hypochromasia (manual) Poikilocytosis (manual Anisocytosis (manual) Microcytosis (manual) Macrocytosis (manual) Target Cells Tear Drop Cells Ovalocytes Mize Cells Puncture Site pCO2 (35-45) mm/Hg pO2 (80-100) mm/Hg HCO3 (21-28) mmol/L ABG pH (7.35-7.45) ABG Total CO2 (22-28) mmol/L ABG O2 Saturation (95-98) % ABG Base Excess (-2.0-3.0) mmol/L ABG Hemoglobin (11.7-17.4) g/dL ABG Carboxyhemoglobin (0.5-1.5) % POC ABG HHb (Measured) (0.0-5.0) % ABG Methemoglobin (0.0-3.0) % Bill Test A-a O2 Difference mm/Hg Respiratory Index Hgb O2 Saturation (95.0-98.0) % Vent Mode Mechanical Rate FiO2 % Tidal Volume PEEP Sodium (132-148) mmol/L Potassium (3.6-5.2) mmol/L Chloride (98-107) mmol/L Carbon Dioxide (22-30) mmol/L Anion Gap (10-20) BUN (7-17) mg/dL Creatinine (0.7-1.2) mg/dL Est GFR ( Amer) Est GFR (Non-Af Amer) POC Glucose (mg/dL) (65-110) mg/dL Random Glucose (65-105) mg/dL Calcium (8.6-10.4) mg/dl Phosphorus (2.5-4.5) mg/dL Magnesium (1.6-2.3) mg/dL Total Bilirubin (0.2-1.3) mg/dL AST (14-36) U/L ALT (9-52) U/L Alkaline Phosphatase (38-126) U/L Total Protein (6.3-8.3) g/dL Albumin (3.5-5.0) g/dL Globulin (2.2-3.9) gm/dL Albumin/Globulin Ratio (1.0-2.1) Urine Chloride 147 (32-290) mmol/L Laboratory Results - last 24 hr 09/07/17 09/07/17 09/07/17 11:35 17:43 23:55 WBC RBC Hgb Hct MCV MCH MCHC RDW Plt Count MPV Neut % (Auto) Lymph % (Auto) Patrick % (Auto) Eos % (Auto) Baso % (Auto) Neut # (Auto) Lymph # (Auto) Patrick # (Auto) Eos # (Auto) Baso # (Auto) Neutrophils % (Manual) Lymphocytes % (Manual) Monocytes % (Manual) Eosinophils % (Manual) Platelet Estimate Large Platelets Polychromasia Hypochromasia (manual) Poikilocytosis (manual Anisocytosis (manual) Microcytosis (manual) Macrocytosis (manual) Target Cells Tear Drop Cells Ovalocytes Roseanne Cells Puncture Site pCO2 pO2 HCO3 ABG pH ABG Total CO2 ABG O2 Saturation ABG Base Excess ABG Hemoglobin ABG Carboxyhemoglobin POC ABG HHb (Measured) ABG Methemoglobin Bill Test A-a O2 Difference Respiratory Index Hgb O2 Saturation Vent Mode Mechanical Rate FiO2 Tidal Volume PEEP Sodium Potassium Chloride Carbon Dioxide Anion Gap BUN Creatinine Est GFR ( Amer) Est GFR (Non-Af Amer) POC Glucose (mg/dL) 231 H 106 Random Glucose Calcium Phosphorus Magnesium Total Bilirubin AST ALT Alkaline Phosphatase Total Protein Albumin Globulin Albumin/Globulin Ratio Urine Chloride 147 09/08/17 09/08/17 09/08/17 05:06 06:17 06:18 WBC 14.5 H RBC 3.49 L Hgb 7.9 L Hct 26.9 L MCV 77.2 L MCH 22.8 L MCHC 29.5 L RDW 22.7 H Plt Count 214 MPV 9.7 Neut % (Auto) 83.0 H Lymph % (Auto) 8.0 L Patrick % (Auto) 7.8 Eos % (Auto) 0.5 Baso % (Auto) 0.7 Neut # (Auto) 12.0 H Lymph # (Auto) 1.2 Patrick # (Auto) 1.1 H Eos # (Auto) 0.1 Baso # (Auto) 0.1 Neutrophils % (Manual) 85 H Lymphocytes % (Manual) 8 L Monocytes % (Manual) 6 Eosinophils % (Manual) 1 Platelet Estimate Normal Large Platelets Present Polychromasia Slight Hypochromasia (manual) Moderate Poikilocytosis (manual Moderate Anisocytosis (manual) Moderate Microcytosis (manual) Slight Macrocytosis (manual) Slight Target Cells Slight Tear Drop Cells Slight Ovalocytes Slight Roseanne Cells Moderate Puncture Site Lr pCO2 52 H pO2 67 L HCO3 37.9 H ABG pH 7.51 H ABG Total CO2 43.1 H ABG O2 Saturation 97.2 ABG Base Excess 16.7 H ABG Hemoglobin 8.1 L ABG Carboxyhemoglobin 2.1 H POC ABG HHb (Measured) 2.7 ABG Methemoglobin 0.7 Bill Test Pos A-a O2 Difference 225.0 Respiratory Index 3.4 Hgb O2 Saturation 94.5 L Vent Mode Prvc Mechanical Rate 18 FiO2 50.0 Tidal Volume 500 PEEP 5 Sodium 157 H Potassium 4.0 Chloride 110 H Carbon Dioxide 40 H* Anion Gap 11 BUN 31 H Creatinine 0.7 Est GFR ( Amer) > 60 Est GFR (Non-Af Amer) > 60 POC Glucose (mg/dL) Random Glucose 108 H Calcium 8.5 L Phosphorus 5.0 H Magnesium 2.2 Total Bilirubin 0.5 AST 42 H D ALT 105 H Alkaline Phosphatase 71 Total Protein 5.5 L Albumin 2.8 L Globulin 2.8 Albumin/Globulin Ratio 1.0 Urine Chloride 09/08/17 11:35 WBC RBC Hgb Hct MCV MCH MCHC RDW Plt Count MPV Neut % (Auto) Lymph % (Auto) Patrick % (Auto) Eos % (Auto) Baso % (Auto) Neut # (Auto) Lymph # (Auto) Patrick # (Auto) Eos # (Auto) Baso # (Auto) Neutrophils % (Manual) Lymphocytes % (Manual) Monocytes % (Manual) Eosinophils % (Manual) Platelet Estimate Large Platelets Polychromasia Hypochromasia (manual) Poikilocytosis (manual Anisocytosis (manual) Microcytosis (manual) Macrocytosis (manual) Target Cells Tear Drop Cells Ovalocytes Mize Cells Puncture Site pCO2 pO2 HCO3 ABG pH ABG Total CO2 ABG O2 Saturation ABG Base Excess ABG Hemoglobin ABG Carboxyhemoglobin POC ABG HHb (Measured) ABG Methemoglobin Bill Test A-a O2 Difference Respiratory Index Hgb O2 Saturation Vent Mode Mechanical Rate FiO2 Tidal Volume PEEP Sodium Potassium Chloride Carbon Dioxide Anion Gap BUN Creatinine Est GFR ( Amer) Est GFR (Non-Af Amer) POC Glucose (mg/dL) 197 H Random Glucose Calcium Phosphorus Magnesium Total Bilirubin AST ALT Alkaline Phosphatase Total Protein Albumin Globulin Albumin/Globulin Ratio Urine Chloride Fingerstick Blood Sugar Results: 197 Review of Systems - Review of Systems Systems not reviewed;Unavailable: Acuity of Condition Assessment/Plan - Assessment and Plan (Free Text) Assessment: 72 yr old Female with a past medical history of anxiety, asthma, CHF, COPD, CM , emphysema who was admitted to ICU after Rapid response called on August 31 from acute hypoxemia that required intubation. Patient currently being treated for Sputum positive Klebsiella and Yeast. Plan: Neurology: anxiety, neuropathy -Diprivan 1000mg qd for sedation @ 15.556 ml/hr - APAP 650mg/20.3ml soln UD q4 PRN and follow temperature (continue cooling blanket PRN) cards: CHF (worsening EF; recs per professor of early childhood education Dr. Slade) - Milrinone Drip discontinued. - measure CVP - Lopressor 25mg PO BID - check QTc x5d (09/06: 544) - ASA 81mg PO qd - Trial hydralazine/nitrates if BP tolerant (per [place]) pulm: AECOPD, PNA, emphysema, asthma - Trial CPAP at 5 and 12 pressure support titrate to sats >92%. - FiO2 50%, rate 16, spontaneous Vt 550-670 - Solu-Medrol 20mg IVP q12h Endocrinology: DM2 - ISS HIGH - accuchecks blood sugar levels q4h nephro: CKD -Urine Cx positive for yeast species.. - continue following I/O and kidney function tests - monitor Na levels closely - hold Lasix 2/2 hyperNa - No ACEi/ARB ID: ?[id number] - Klebsiella pneumoniae positive on sputum culture. Contineu Merrem and Zithromax - MycoplasmaIgM negative; Legionella pending PPx: DVT, PUD - OGT feeds @ 50ml/hr - Protonix 40mg IVP qd <Latef,Jeff M - Last Filed: 09/08/17 18:42> CCU Objective - Vital Signs / Intake & Output Vital Signs (Last 4 hours): Vital Signs Temp Pulse Resp BP Pulse Ox 09/08/17 18:02 135/64 09/08/17 16:00 99.1 F 95 09/08/17 15:59 112 H 18 131/69 09/08/17 14:59 123 H 22 135/70 90 L Intake and Output (Last 8hrs): Intake & Output 09/08/17 09/08/17 09/08/17 06:59 14:59 22:59 Intake Total 905.2 713.9 123.2 Output Total 395 410 110 Balance 510.2 303.9 13.2 Intake: IV 200 125 75 Intake, IV Amount 355.2 288.9 48.2 Right Distal Port 187.2 120.9 31.2 Internal Jugular Right Medial Port 100 100 Internal Jugular Right Proximal Port 68.0 68.0 17.0 Internal Jugular Tube Feeding 350 300 0 Output: Urine 395 410 110 Urethral (Rico) 395 410 110 Other: # Bowel Movements 1 1 - Medications Active Medications: Active Medications Generic Name Dose Route Start Last Admin Trade Name Freq PRN Reason Stop Dose Admin Acetaminophen 650 mg 09/03/17 22:46 09/07/17 06:52 Tylenol 650mg/20.3ml Solution Ud PO 650 mg Q4 PRN Administration for temperature >101 F Albuterol/Ipratropium 3 ml 09/06/17 02:00 09/08/17 13:26 Duoneb 3 Mg/0.5 Mg (3 Ml) Ud INH Not Given RQ6 JENNIFER Aspirin 81 mg 09/02/17 10:30 09/08/17 09:44 Aspirin Chewable PO 81 mg DAILY JENNIFER Administration Propofol 1,000 mg in 100 mls @ 3.889 mls/hr 09/02/17 14:40 09/08/17 17:45 Diprivan IV 40 mcg/kg/min .Q24H PRN 15.6 mls/hr TITRATE PER MD ORDER Administration Protocol 10 MCG/KG/MIN Meropenem 1 gm/ Sodium 100 mls @ 100 mls/hr 09/07/17 19:00 09/08/17 10:44 Chloride IVPB 100 mls/hr Q8H JENNIFER Administration Azithromycin 500 mg/ Sodium 250 mls @ 250 mls/hr 09/07/17 18:00 09/08/17 17: 59 Chloride IVPB 250 mls/hr Q24H JENNIFER Administration Micafungin Sodium 100 mg/ 100 mls @ 100 mls/hr 09/07/17 20:00 09/07/17 21:39 Sodium Chloride IV 100 mls/hr Q24H JENNIFER Administration Insulin Human Regular 0 unit 09/07/17 00:00 09/08/17 17:57 Novolin R SC 4 unit Q6H JENNIFER Administration Protocol Methylprednisolone 20 mg 09/05/17 18:00 09/08/17 17:58 Solu-Medrol IVP 20 mg BID JENNIFER Administration Metoprolol Tartrate 25 mg 09/06/17 10:00 09/08/17 18:02 Lopressor PO 25 mg BID JENNIFER Administration Pantoprazole Sodium 40 mg 09/02/17 10:45 09/08/17 09:48 Protonix Inj IVP 40 mg DAILY JENNIFER Administration - Patient Studies Lab Studies: Microbiology Studies 09/05/17 11:40 Blood Culture - Preliminary Blood NO GROWTH AFTER 3 DAYS 09/05/17 11:16 Blood Culture - Preliminary Blood NO GROWTH AFTER 3 DAYS 09/07/17 10:25 Urine Culture - Final Urine,Catheterized Yeast Species 09/03/17 23:00 Blood Culture - Preliminary Blood NO GROWTH AFTER 4 DAYS 09/03/17 23:30 Blood Culture - Preliminary Blood NO GROWTH AFTER 4 DAYS Lab Studies 09/08/17 09/08/17 09/08/17 Range/Units 17:53 11:35 06:18 WBC 14.5 H (4.8-10.8) K/uL RBC 3.49 L (3.80-5.20) Mil/uL Hgb 7.9 L (11.0-16.0) g/dL Hct 26.9 L (34.0-47.0) % MCV 77.2 L (81.0-99.0) fL MCH 22.8 L (27.0-31.0) pg MCHC 29.5 L (33.0-37.0) g/dL RDW 22.7 H (11.5-14.5) % Plt Count 214 (130-400) K/uL MPV 9.7 (7.2-11.7) fL Neut % (Auto) 83.0 H (50.0-75.0) % Lymph % (Auto) 8.0 L (20.0-40.0) % Patrick % (Auto) 7.8 (0.0-10.0) % Eos % (Auto) 0.5 (0.0-4.0) % Baso % (Auto) 0.7 (0.0-2.0) % Neut # (Auto) 12.0 H (1.8-7.0) K/uL Lymph # (Auto) 1.2 (1.0-4.3) K/uL Patrick # (Auto) 1.1 H (0.0-0.8) K/uL Eos # (Auto) 0.1 (0.0-0.7) K/uL Baso # (Auto) 0.1 (0.0-0.2) K/uL Neutrophils % (Manual) 85 H (50-75) % Lymphocytes % (Manual) 8 L (20-40) % Monocytes % (Manual) 6 (0-10) % Eosinophils % (Manual) 1 (0-4) % Platelet Estimate Normal (NORMAL) Large Platelets Present Polychromasia Slight Hypochromasia (manual) Moderate Poikilocytosis (manual Moderate Anisocytosis (manual) Moderate Microcytosis (manual) Slight Macrocytosis (manual) Slight Target Cells Slight Tear Drop Cells Slight Ovalocytes Slight Roseanne Cells Moderate Puncture Site pCO2 (35-45) mm/Hg pO2 (80-100) mm/Hg HCO3 (21-28) mmol/L ABG pH (7.35-7.45) ABG Total CO2 (22-28) mmol/L ABG O2 Saturation (95-98) % ABG Base Excess (-2.0-3.0) mmol/L ABG Hemoglobin (11.7-17.4) g/dL ABG Carboxyhemoglobin (0.5-1.5) % POC ABG HHb (Measured) (0.0-5.0) % ABG Methemoglobin (0.0-3.0) % Bill Test A-a O2 Difference mm/Hg Respiratory Index Hgb O2 Saturation (95.0-98.0) % Vent Mode Mechanical Rate FiO2 % Tidal Volume PEEP Sodium (132-148) mmol/L Potassium (3.6-5.2) mmol/L Chloride (98-107) mmol/L Carbon Dioxide (22-30) mmol/L Anion Gap (10-20) BUN (7-17) mg/dL Creatinine (0.7-1.2) mg/dL Est GFR ( Amer) Est GFR (Non-Af Amer) POC Glucose (mg/dL) 231 H 197 H (65-110) mg/dL Random Glucose (65-105) mg/dL Calcium (8.6-10.4) mg/dl Phosphorus (2.5-4.5) mg/dL Magnesium (1.6-2.3) mg/dL Total Bilirubin (0.2-1.3) mg/dL AST (14-36) U/L ALT (9-52) U/L Alkaline Phosphatase (38-126) U/L Total Protein (6.3-8.3) g/dL Albumin (3.5-5.0) g/dL Globulin (2.2-3.9) gm/dL Albumin/Globulin Ratio (1.0-2.1) Urine Chloride (32-290) mmol/L 09/08/17 09/08/17 09/07/17 Range/Units 06:17 05:06 23:55 WBC (4.8-10.8) K/uL RBC (3.80-5.20) Mil/uL Hgb (11.0-16.0) g/dL Hct (34.0-47.0) % MCV (81.0-99.0) fL MCH (27.0-31.0) pg MCHC (33.0-37.0) g/dL RDW (11.5-14.5) % Plt Count (130-400) K/uL MPV (7.2-11.7) fL Neut % (Auto) (50.0-75.0) % Lymph % (Auto) (20.0-40.0) % Patrick % (Auto) (0.0-10.0) % Eos % (Auto) (0.0-4.0) % Baso % (Auto) (0.0-2.0) % Neut # (Auto) (1.8-7.0) K/uL Lymph # (Auto) (1.0-4.3) K/uL Patrick # (Auto) (0.0-0.8) K/uL Eos # (Auto) (0.0-0.7) K/uL Baso # (Auto) (0.0-0.2) K/uL Neutrophils % (Manual) (50-75) % Lymphocytes % (Manual) (20-40) % Monocytes % (Manual) (0-10) % Eosinophils % (Manual) (0-4) % Platelet Estimate (NORMAL) Large Platelets Polychromasia Hypochromasia (manual) Poikilocytosis (manual Anisocytosis (manual) Microcytosis (manual) Macrocytosis (manual) Target Cells Tear Drop Cells Ovalocytes Mize Cells Puncture Site Lr pCO2 52 H (35-45) mm/Hg pO2 67 L (80-100) mm/Hg HCO3 37.9 H (21-28) mmol/L ABG pH 7.51 H (7.35-7.45) ABG Total CO2 43.1 H (22-28) mmol/L ABG O2 Saturation 97.2 (95-98) % ABG Base Excess 16.7 H (-2.0-3.0) mmol/L ABG Hemoglobin 8.1 L (11.7-17.4) g/dL ABG Carboxyhemoglobin 2.1 H (0.5-1.5) % POC ABG HHb (Measured) 2.7 (0.0-5.0) % ABG Methemoglobin 0.7 (0.0-3.0) % Bill Test Pos A-a O2 Difference 225.0 mm/Hg Respiratory Index 3.4 Hgb O2 Saturation 94.5 L (95.0-98.0) % Vent Mode Prvc Mechanical Rate 18 FiO2 50.0 % Tidal Volume 500 PEEP 5 Sodium 157 H (132-148) mmol/L Potassium 4.0 (3.6-5.2) mmol/L Chloride 110 H (98-107) mmol/L Carbon Dioxide 40 H* (22-30) mmol/L Anion Gap 11 (10-20) BUN 31 H (7-17) mg/dL Creatinine 0.7 (0.7-1.2) mg/dL Est GFR ( Amer) > 60 Est GFR (Non-Af Amer) > 60 POC Glucose (mg/dL) 106 (65-110) mg/dL Random Glucose 108 H (65-105) mg/dL Calcium 8.5 L (8.6-10.4) mg/dl Phosphorus 5.0 H (2.5-4.5) mg/dL Magnesium 2.2 (1.6-2.3) mg/dL Total Bilirubin 0.5 (0.2-1.3) mg/dL AST 42 H D (14-36) U/L ALT 105 H (9-52) U/L Alkaline Phosphatase 71 (38-126) U/L Total Protein 5.5 L (6.3-8.3) g/dL Albumin 2.8 L (3.5-5.0) g/dL Globulin 2.8 (2.2-3.9) gm/dL Albumin/Globulin Ratio 1.0 (1.0-2.1) Urine Chloride (32-290) mmol/L 09/07/17 Range/Units 11:35 WBC (4.8-10.8) K/uL RBC (3.80-5.20) Mil/uL Hgb (11.0-16.0) g/dL Hct (34.0-47.0) % MCV (81.0-99.0) fL MCH (27.0-31.0) pg MCHC (33.0-37.0) g/dL RDW (11.5-14.5) % Plt Count (130-400) K/uL MPV (7.2-11.7) fL Neut % (Auto) (50.0-75.0) % Lymph % (Auto) (20.0-40.0) % Patrick % (Auto) (0.0-10.0) % Eos % (Auto) (0.0-4.0) % Baso % (Auto) (0.0-2.0) % Neut # (Auto) (1.8-7.0) K/uL Lymph # (Auto) (1.0-4.3) K/uL Patrick # (Auto) (0.0-0.8) K/uL Eos # (Auto) (0.0-0.7) K/uL Baso # (Auto) (0.0-0.2) K/uL Neutrophils % (Manual) (50-75) % Lymphocytes % (Manual) (20-40) % Monocytes % (Manual) (0-10) % Eosinophils % (Manual) (0-4) % Platelet Estimate (NORMAL) Large Platelets Polychromasia Hypochromasia (manual) Poikilocytosis (manual Anisocytosis (manual) Microcytosis (manual) Macrocytosis (manual) Target Cells Tear Drop Cells Ovalocytes Mize Cells Puncture Site pCO2 (35-45) mm/Hg pO2 (80-100) mm/Hg HCO3 (21-28) mmol/L ABG pH (7.35-7.45) ABG Total CO2 (22-28) mmol/L ABG O2 Saturation (95-98) % ABG Base Excess (-2.0-3.0) mmol/L ABG Hemoglobin (11.7-17.4) g/dL ABG Carboxyhemoglobin (0.5-1.5) % POC ABG HHb (Measured) (0.0-5.0) % ABG Methemoglobin (0.0-3.0) % Bill Test A-a O2 Difference mm/Hg Respiratory Index Hgb O2 Saturation (95.0-98.0) % Vent Mode Mechanical Rate FiO2 % Tidal Volume PEEP Sodium (132-148) mmol/L Potassium (3.6-5.2) mmol/L Chloride (98-107) mmol/L Carbon Dioxide (22-30) mmol/L Anion Gap (10-20) BUN (7-17) mg/dL Creatinine (0.7-1.2) mg/dL Est GFR ( Amer) Est GFR (Non-Af Amer) POC Glucose (mg/dL) (65-110) mg/dL Random Glucose (65-105) mg/dL Calcium (8.6-10.4) mg/dl Phosphorus (2.5-4.5) mg/dL Magnesium (1.6-2.3) mg/dL Total Bilirubin (0.2-1.3) mg/dL AST (14-36) U/L ALT (9-52) U/L Alkaline Phosphatase (38-126) U/L Total Protein (6.3-8.3) g/dL Albumin (3.5-5.0) g/dL Globulin (2.2-3.9) gm/dL Albumin/Globulin Ratio (1.0-2.1) Urine Chloride 147 (32-290) mmol/L Laboratory Results - last 24 hr 09/07/17 09/07/17 09/08/17 11:35 23:55 05:06 WBC RBC Hgb Hct MCV MCH MCHC RDW Plt Count MPV Neut % (Auto) Lymph % (Auto) Patrick % (Auto) Eos % (Auto) Baso % (Auto) Neut # (Auto) Lymph # (Auto) Patrick # (Auto) Eos # (Auto) Baso # (Auto) Neutrophils % (Manual) Lymphocytes % (Manual) Monocytes % (Manual) Eosinophils % (Manual) Platelet Estimate Large Platelets Polychromasia Hypochromasia (manual) Poikilocytosis (manual Anisocytosis (manual) Microcytosis (manual) Macrocytosis (manual) Target Cells Tear Drop Cells Ovalocytes Mize Cells Puncture Site Lr pCO2 52 H pO2 67 L HCO3 37.9 H ABG pH 7.51 H ABG Total CO2 43.1 H ABG O2 Saturation 97.2 ABG Base Excess 16.7 H ABG Hemoglobin 8.1 L ABG Carboxyhemoglobin 2.1 H POC ABG HHb (Measured) 2.7 ABG Methemoglobin 0.7 Bill Test Pos A-a O2 Difference 225.0 Respiratory Index 3.4 Hgb O2 Saturation 94.5 L Vent Mode Prvc Mechanical Rate 18 FiO2 50.0 Tidal Volume 500 PEEP 5 Sodium Potassium Chloride Carbon Dioxide Anion Gap BUN Creatinine Est GFR ( Amer) Est GFR (Non-Af Amer) POC Glucose (mg/dL) 106 Random Glucose Calcium Phosphorus Magnesium Total Bilirubin AST ALT Alkaline Phosphatase Total Protein Albumin Globulin Albumin/Globulin Ratio Urine Chloride 147 09/08/17 09/08/17 09/08/17 06:17 06:18 11:35 WBC 14.5 H RBC 3.49 L Hgb 7.9 L Hct 26.9 L MCV 77.2 L MCH 22.8 L MCHC 29.5 L RDW 22.7 H Plt Count 214 MPV 9.7 Neut % (Auto) 83.0 H Lymph % (Auto) 8.0 L Patrick % (Auto) 7.8 Eos % (Auto) 0.5 Baso % (Auto) 0.7 Neut # (Auto) 12.0 H Lymph # (Auto) 1.2 Patrick # (Auto) 1.1 H Eos # (Auto) 0.1 Baso # (Auto) 0.1 Neutrophils % (Manual) 85 H Lymphocytes % (Manual) 8 L Monocytes % (Manual) 6 Eosinophils % (Manual) 1 Platelet Estimate Normal Large Platelets Present Polychromasia Slight Hypochromasia (manual) Moderate Poikilocytosis (manual Moderate Anisocytosis (manual) Moderate Microcytosis (manual) Slight Macrocytosis (manual) Slight Target Cells Slight Tear Drop Cells Slight Ovalocytes Slight Mize Cells Moderate Puncture Site pCO2 pO2 HCO3 ABG pH ABG Total CO2 ABG O2 Saturation ABG Base Excess ABG Hemoglobin ABG Carboxyhemoglobin POC ABG HHb (Measured) ABG Methemoglobin Bill Test A-a O2 Difference Respiratory Index Hgb O2 Saturation Vent Mode Mechanical Rate FiO2 Tidal Volume PEEP Sodium 157 H Potassium 4.0 Chloride 110 H Carbon Dioxide 40 H* Anion Gap 11 BUN 31 H Creatinine 0.7 Est GFR ( Amer) > 60 Est GFR (Non-Af Amer) > 60 POC Glucose (mg/dL) 197 H Random Glucose 108 H Calcium 8.5 L Phosphorus 5.0 H Magnesium 2.2 Total Bilirubin 0.5 AST 42 H D ALT 105 H Alkaline Phosphatase 71 Total Protein 5.5 L Albumin 2.8 L Globulin 2.8 Albumin/Globulin Ratio 1.0 Urine Chloride 09/08/17 17:53 WBC RBC Hgb Hct MCV MCH MCHC RDW Plt Count MPV Neut % (Auto) Lymph % (Auto) Patrick % (Auto) Eos % (Auto) Baso % (Auto) Neut # (Auto) Lymph # (Auto) Patrick # (Auto) Eos # (Auto) Baso # (Auto) Neutrophils % (Manual) Lymphocytes % (Manual) Monocytes % (Manual) Eosinophils % (Manual) Platelet Estimate Large Platelets Polychromasia Hypochromasia (manual) Poikilocytosis (manual Anisocytosis (manual) Microcytosis (manual) Macrocytosis (manual) Target Cells Tear Drop Cells Ovalocytes Mize Cells Puncture Site pCO2 pO2 HCO3 ABG pH ABG Total CO2 ABG O2 Saturation ABG Base Excess ABG Hemoglobin ABG Carboxyhemoglobin POC ABG HHb (Measured) ABG Methemoglobin Bill Test A-a O2 Difference Respiratory Index Hgb O2 Saturation Vent Mode Mechanical Rate FiO2 Tidal Volume PEEP Sodium Potassium Chloride Carbon Dioxide Anion Gap BUN Creatinine Est GFR ( Amer) Est GFR (Non-Af Amer) POC Glucose (mg/dL) 231 H Random Glucose Calcium Phosphorus Magnesium Total Bilirubin AST ALT Alkaline Phosphatase Total Protein Albumin Globulin Albumin/Globulin Ratio Urine Chloride Attending/Attestation - Attestation I have personally seen and examined this patient.: Yes I have fully participated in the care of the patient.: Yes I have reviewed all pertinent clinical information: Yes Notes (Text): 09/08/17 18:42 Today: August The Patient was seen and examined at the bedside, Medical records reviewed, and management issues were discussed and formulated with the house staff. I have reviewed all the relevant clinical, laboratory, hemodynamic, radiographic data and medications Events reviewed Pain issues, skin care, head of the bed elevation, glycemic control were addressed. Agree with above resident's assessment and treatment plans of care as transcribed in Dr. Mujica note.
[2017-09-08] MEDS: Azithromycin 500 MG in Sodium Chloride 0.9% 250 ML IVPB SCH (17:59)
--- NOTE | 2017-09-08 19:47 | CP.PCM.PN ---
Subjective - Date & Time of Evaluation Date of Evaluation: 08/25/17 Time of Evaluation: 19:44 - Subjective Subjective: pt still entubated ht rate at fib Objective - Vital Signs/Intake and Output Vital Signs (last 24 hours): Temp Pulse Resp BP Pulse Ox 99.1 F 92 H 19 96/61 L 98 09/08/17 16:00 09/08/17 18:59 09/08/17 18:59 09/08/17 18:59 09/08/17 18:59 Intake and Output: 09/08/17 09/09/17 18:59 06:59 Intake Total 908.3 35.6 Output Total 1055 95 Balance -146.7 -59.4 - Medications Medications: Current Medications Acetaminophen (Tylenol 650mg/20.3ml Solution Ud) 650 mg PO Q4 PRN PRN Reason: for temperature >101 F Last Admin: 09/07/17 06:52 Dose: 650 mg Albuterol/Ipratropium (Duoneb 3 Mg/0.5 Mg (3 Ml) Ud) 3 ml INH RQ6 [facility] Last Admin: 09/08/17 13:26 Dose: Not Given Aspirin (Aspirin Chewable) 81 mg PO DAILY [facility] Last Admin: 09/08/17 09:44 Dose: 81 mg Propofol (Diprivan) 1,000 mg in 100 mls @ 3.889 mls/hr IV .Q24H PRN; Protocol; 10 MCG/KG/MIN PRN Reason: TITRATE PER MD ORDER Last Admin: 09/08/17 17:45 Dose: 40 mcg/kg/min, 15.6 mls/hr Meropenem 1 gm/ Sodium (Chloride) 100 mls @ 100 mls/hr IVPB Q8H [facility] Last Admin: 09/08/17 10:44 Dose: 100 mls/hr Azithromycin 500 mg/ Sodium (Chloride) 250 mls @ 250 mls/hr IVPB Q24H [facility] Last Admin: 09/08/17 17:59 Dose: 250 mls/hr Micafungin Sodium 100 mg/ (Sodium Chloride) 100 mls @ 100 mls/hr IV Q24H [facility] Last Admin: 09/07/17 21:39 Dose: 100 mls/hr Insulin Human Regular (Novolin R) 0 unit SC Q6H [facility] PRN Reason: Protocol Last Admin: 09/08/17 17:57 Dose: 4 unit Methylprednisolone (Solu-Medrol) 20 mg IVP BID [facility] Last Admin: 09/08/17 17:58 Dose: 20 mg Metoprolol Tartrate (Lopressor) 25 mg PO BID [facility] Last Admin: 09/08/17 18:02 Dose: 25 mg Pantoprazole Sodium (Protonix Inj) 40 mg IVP DAILY [facility] Last Admin: 09/08/17 09:48 Dose: 40 mg - Labs Labs: 09/08/17 06:18 09/08/17 06:17 PT 12.6 SECONDS (9.7-12.2) H 08/30/17 23:18 INR 1.1 08/30/17 23:18 APTT 28 SECONDS (21-34) 08/30/17 23:18 - Constitutional Appears: In Acute Distress - Head Exam Head Exam: ATRAUMATIC - Eye Exam Eye Exam: Conjunctival injection - ENT Exam ENT Exam: Mucous Membranes Dry - Respiratory Exam Respiratory Exam: Rales - Cardiovascular Exam Cardiovascular Exam: Irregular Rhythm - GI/Abdominal Exam GI & Abdominal Exam: Normal Bowel Sounds - Extremities Exam Extremities Exam: Normal Inspection - Skin Skin Exam: Pallor Assessment and Plan - Assessment and Plan (Free Text) Assessment: ac atfib resp failiur copd cardiomyopathy Plan: ekg now cardiac reevaluation
[2017-09-08] MEDS: Micafungin 100 MG in Sodium Chloride 0.9% 100 ML IV SCH (20:04)
--- NOTE | 2017-09-08 22:07 | CP.PCM.PN ---
Subjective - Date & Time of Evaluation Date of Evaluation: 09/08/17 Time of Evaluation: 22:07 - Subjective Subjective: CHIEF COMPLAINTS TODAY : TEMP 99, TACHYCARDIC .INTUBATED. opens eyes on name DID NOT TOLERATE WEANING daughter at bedside. ROS. HEENT : N. Resp : No SOB wheezing, cough Cardio : No CP, PND orthopnea GI : No abd. 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 Musculoskel : N Ext. : Pedal pulses intact, no edema or calf pain Derm : N Psych : N. PE. Pt. is AROUSABLE in no distress.INTUBATED V.S As noted in the chart Head ,ear nose,throat and eyes : Normal. Neck : Supple with normal carotids. Lungs: RHONCHI RIGHT-SIDED MORE THAN LEFT Heart : S1 & S2 TACHYCARDIC HEART RATE 102/MIN. . No murmur. S4 + Abd : Soft non tender with normal bowel sounds. Neuro : Moves all ext. with no localized deficit. Ext : No edema with intact pulses. Neg. calf tenderness Derm : No rashes or decubitus ulcer. Radiology/Labs . REVIEWED. urine culture+ve yeast Tracheal aspirate +ve Klebsiella pneumoniae/yeast. Objective - Vital Signs/Intake and Output Vital Signs (last 24 hours): Temp Pulse Resp BP Pulse Ox 99.1 F 92 H 19 96/61 L 98 09/08/17 16:00 09/08/17 18:59 09/08/17 18:59 09/08/17 18:59 09/08/17 18:59 Intake and Output: 09/08/17 09/09/17 18:59 06:59 Intake Total 908.3 35.6 Output Total 1055 95 Balance -146.7 -59.4 - Medications Medications: Current Medications Acetaminophen (Tylenol 650mg/20.3ml Solution Ud) 650 mg PO Q4 PRN PRN Reason: for temperature >101 F Last Admin: 09/07/17 06:52 Dose: 650 mg Albuterol/Ipratropium (Duoneb 3 Mg/0.5 Mg (3 Ml) Ud) 3 ml INH RQ6 [facility] Last Admin: 09/08/17 20:17 Dose: 3 ml Aspirin (Aspirin Chewable) 81 mg PO DAILY [facility] Last Admin: 09/08/17 09:44 Dose: 81 mg Propofol (Diprivan) 1,000 mg in 100 mls @ 3.889 mls/hr IV .Q24H PRN; Protocol; 10 MCG/KG/MIN PRN Reason: TITRATE PER MD ORDER Last Admin: 09/08/17 17:45 Dose: 40 mcg/kg/min, 15.6 mls/hr Meropenem 1 gm/ Sodium (Chloride) 100 mls @ 100 mls/hr IVPB Q8H [facility] Last Admin: 09/08/17 19:24 Dose: 100 mls/hr Azithromycin 500 mg/ Sodium (Chloride) 250 mls @ 250 mls/hr IVPB Q24H [facility] Last Admin: 09/08/17 17:59 Dose: 250 mls/hr Micafungin Sodium 100 mg/ (Sodium Chloride) 100 mls @ 100 mls/hr IV Q24H [facility] Last Admin: 09/08/17 20:04 Dose: 100 mls/hr Insulin Human Regular (Novolin R) 0 unit SC Q6H [facility] PRN Reason: Protocol Last Admin: 09/08/17 17:57 Dose: 4 unit Methylprednisolone (Solu-Medrol) 20 mg IVP BID [facility] Last Admin: 09/08/17 17:58 Dose: 20 mg Metoprolol Tartrate (Lopressor) 25 mg PO BID [facility] Last Admin: 09/08/17 18:02 Dose: 25 mg Pantoprazole Sodium (Protonix Inj) 40 mg IVP DAILY [facility] Last Admin: 09/08/17 09:48 Dose: 40 mg - Labs Labs: 09/08/17 06:18 09/08/17 06:17 PT 12.6 SECONDS (9.7-12.2) H 08/30/17 23:18 INR 1.1 08/30/17 23:18 APTT 28 SECONDS (21-34) 08/30/17 23:18 Assessment and Plan (1) Respiratory failure Status: Acute (2) Fever Status: Acute (3) Pneumonia Status: Acute (4) COPD exacerbation Status: Acute (5) CHF (congestive heart failure) Status: Acute (6) Severe anemia Status: Acute (7) Type II diabetes mellitus Status: Acute (8) History of bilateral mastectomy Status: Acute - Assessment and Plan (Free Text) Plan: CONTINUE iv MEROPENEM 1 G EVERY 8 HOURLY 09/07/17. CONTINUE iv zITHROMAX 500 MG EVERY d DAILY. 09/07/17. ADD IV MYCAFUNGIN 100 MG iv PIGGYBACK ONCE A DAY DAILY .09/07/17. PATIENT ALSO ON STEROIDS IV FLUIDS PER COLLEGE DIRECTOR/ DR Sandi LUZ.. CASE DISCUSSED WITH RESIDENTS AND ICU STAFF. FAMILY DAUGHTER PRESENT AT BEDSIDE. F/U CXR.
[2017-09-09] MEDS: (Novolin R) Insulin Human Regular 100 units/ml vial SC SCH ×2 (00:41→05:49)
[2017-09-09] MEDS: Albuterol-Ipratrop 3 mg / 0.5 (3 ml) UD INH SCH ×4 (01:44→20:53)
[2017-09-09] MEDS: Meropenem 1 GM in Sodium Chloride 0.9% 100 ML IVPB SCH ×3 (02:45→18:09)
[2017-09-09] MEDS: Propofol 10 mg/ml 1,000 MG/100 ML VIAL IV PRN (04:44)
[2017-09-09 05:50] LABS: ARTERIAL BLOOD GAS HCO3 33.1 mmol/L (21-28); ARTERIAL BLOOD GAS HEMOGLOBIN 8.7 g/dL (11.7-17.4); ARTERIAL BLOOD GAS O2 SAT 98.5 % (95-98); ARTERIAL BLOOD GAS PCO2 53 mm/Hg (35-45); ARTERIAL BLOOD GAS PH 7.44 (7.35-7.45); ARTERIAL BLOOD GAS PO2 84 mm/Hg (80-100); ARTERIAL BLOOD GAS TCO2 37.6 mmol/L (22-28)
[2017-09-09 06:38] LABS: BASO % 0.2 % (0.0-2.0); EOS # 0.1 K/uL (0.0-0.7); EOS % 0.5 % (0.0-4.0); HEMOGLOBIN 8.3 g/dL (11.0-16.0); LYMPH # 0.9 K/uL (1.0-4.3); LYMPH % 6.9 % (20.0-40.0); MEAN CELL VOLUME 76.4 fL (81.0-99.0); MEAN CORPUSCULAR HEMOGLOBIN 22.8 pg (27.0-31.0); MEAN CORPUSCULAR HGB CONC 29.8 g/dL (33.0-37.0); MEAN PLATELET VOLUME 9.9 fL (7.2-11.7); MONO % 7.4 % (0.0-10.0); NEUT # 11.5 K/uL (1.8-7.0); NRBC % 0.4 % (0.0-2.0); PLATELET COUNT 222 K/uL (130-400); RBC 3.66 Mil/uL (3.80-5.20); RED CELL DISTRIBUTION WIDTH 22.3 % (11.5-14.5); WHITE BLOOD COUNT 13.6 K/uL (4.8-10.8)
[2017-09-09 06:52] LABS: ALBUMIN 2.8 g/dL (3.5-5.0); ALT/SGPT 72 U/L (9-52); AST/SGOT 25 U/L (14-36); BLOOD UREA NITROGEN 24 mg/dL (7-17); CALCIUM 9.2 mg/dl (8.6-10.4); GFR AFRICAN-AMERICAN > 60; GFR NON-AFRICAN AMERICAN > 60
[2017-09-09 08:55] LABS: ANISOCYTOSIS MODERATE; BANDS 2 % (0-2); LYMPHOCYTE 6 % (20-40); METAMYELOCYTE 2 % (0-0); MONOCYTE 7 % (0-10); NEUTROPHIL 83 % (50-75); NUCLEATED RED BLOOD CELL 1 % (0-0); PLATELET ESTIMATE NORMAL (NORMAL); TOTAL CELLS COUNTED 100
[2017-09-09 08:56] LABS: HYPOCHROMIC MODERATE; OVALOCYTES MODERATE
--- NOTE | 2017-09-09 09:01 | RAD ---
HISTORY: pt intubated COMPARISON: 09/08/2017 FINDINGS: LUNGS: Opacity at medial right lung base, possibly artifactual due to oblique positioning. New since prior examination. No other abnormal pulmonary opacity. PLEURA: No significant pleural effusion identified, no pneumothorax apparent. CARDIOVASCULAR: Normal heart size. CABG. ET tube, NG tube and right IJ multi lumen central venous catheter are grossly unchanged. OSSEOUS STRUCTURES: No significant abnormalities. VISUALIZED UPPER ABDOMEN: Normal. OTHER FINDINGS: None. IMPRESSION: Questionable new opacity medial right lung base, possibly artifactual due to oblique positioning. Follow-up advised. Lines and tubes unchanged.
[2017-09-09] MEDS: MethylPREDNISolone 40 mg Vial IVP SCH ×2 (09:08→17:56)
[2017-09-09] MEDS ORDERED: (Novolog) Insulin Aspart, Recombinant 100 u/ml 10 ml vial SC SCH (10:00)
--- NOTE | 2017-09-09 11:01 | PN ---
DATE: 09/08/2017. The patient has shortness of breath, decreased breath sounds. IV antibiotics, bronchodilator. Leslie Mak MD
[2017-09-09] MEDS ORDERED: Magnesium Sulfate 1 gm in D5W 1 GM/100 ML BAG IVPB ONE (12:03)
--- NOTE | 2017-09-09 12:26 | CP.CCUPN ---
<Scott Mujica - Last Filed: 09/09/17 12:24> CCU Subjective - Physician Review Events Since Last Encounter (Free Text): 09/09/17 12:24 Per nursing no acute events overnight. Subjective (Free Text): 09/05/17 11:17 Patient seen and examined at bedside. Per nursing no acute events overnight 09/05/17 16:21 Critical Care Time Spent (in minutes): 45 CCU Objective - Vital Signs / Intake & Output Vital Signs (Last 4 hours): Vital Signs BP 09/09/17 10:04 142/64 Intake and Output (Last 8hrs): Intake & Output 09/08/17 09/09/17 09/09/17 22:59 06:59 14:59 Intake Total 436.8 584.8 35.6 Output Total 670 675 75 Balance -233.2 -90.2 -39.4 Intake: IV 75 200 Intake, IV Amount 241.8 224.8 15.6 Right Distal Port 124.8 124.8 15.6 Internal Jugular Right Medial Port 100 100 Internal Jugular Right Proximal Port 17.0 Internal Jugular Tube Feeding 120 160 20 Output: Urine 670 675 75 Urethral (Rico) 670 675 75 - Physical Exam Head: Positive for: Atraumatic, Normocephalic Pupils: Positive for: PERRL Mouth: Positive for: Moist Mucous Membranes Respiratory/Chest: Positive for: Good Air Exchange, Wheezes, Rhonchi Cardiovascular: Positive for: Regular Rate and Rhythm, Normal S1, S2 Abdomen: Positive for: Normal Bowel Sounds Upper Extremity: Positive for: Normal Inspection - Medications Active Medications: Active Medications Generic Name Dose Route Start Last Admin Trade Name Freq PRN Reason Stop Dose Admin Acetaminophen 650 mg 09/03/17 22:46 09/07/17 06:52 Tylenol 650mg/20.3ml Solution Ud PO 650 mg Q4 PRN Administration for temperature >101 F Albuterol/Ipratropium 3 ml 09/06/17 02:00 09/09/17 07:36 Duoneb 3 Mg/0.5 Mg (3 Ml) Ud INH 3 ml RQ6 JENNIFER Administration Aspirin 81 mg 09/02/17 10:30 09/09/17 09:07 Aspirin Chewable PO 81 mg DAILY JENNIFER Administration Meropenem 1 gm/ Sodium 100 mls @ 100 mls/hr 09/07/17 19:00 09/09/17 02:45 Chloride IVPB 100 mls/hr Q8H JENNIFER Administration Azithromycin 500 mg/ Sodium 250 mls @ 250 mls/hr 09/07/17 18:00 09/08/17 17: 59 Chloride IVPB 250 mls/hr Q24H JENNIFER Administration Micafungin Sodium 100 mg/ 100 mls @ 100 mls/hr 09/07/17 20:00 09/08/17 20:04 Sodium Chloride IV 100 mls/hr Q24H JENNIFER Administration Magnesium Sulfate/Dextrose 1 gm in 100 mls @ 200 mls/hr 09/09/17 12:03 Magnesium Sulfate 1 Gm/100 Ml D5w IVPB 09/09/17 12:32 ONCE ONE Insulin Aspart 0 unit 09/09/17 10:00 Novolog SC Q6H [facility] Protocol Methylprednisolone 40 mg 09/09/17 18:00 Solu-Medrol IVP Q6H [facility] Metoprolol Tartrate 25 mg 09/06/17 10:00 09/09/17 10:04 Lopressor PO 25 mg BID [facility] Administration Pantoprazole Sodium 40 mg 09/02/17 10:45 09/09/17 09:08 Protonix Inj IVP 40 mg DAILY [facility] Administration - Patient Studies Lab Studies: Microbiology Studies 09/03/17 23:00 Blood Culture - Final Blood NO GROWTH AFTER 5 DAYS Gram Stain - Final TEST NOT PERFORMED 09/03/17 23:30 Blood Culture - Final Blood NO GROWTH AFTER 5 DAYS Gram Stain - Final TEST NOT PERFORMED 09/07/17 21:15 Blood Culture - Preliminary Blood-Venous NO GROWTH AFTER 24 HOURS 09/07/17 20:15 Blood Culture - Preliminary Blood-Venous NO GROWTH AFTER 24 HOURS 09/05/17 11:40 Blood Culture - Preliminary Blood NO GROWTH AFTER 3 DAYS 09/05/17 11:16 Blood Culture - Preliminary Blood NO GROWTH AFTER 3 DAYS 09/07/17 10:25 Urine Culture - Final Urine,Catheterized Yeast Species Lab Studies 09/09/17 09/09/17 09/09/17 Range/Units 11:34 06:32 06:30 WBC 13.6 H (4.8-10.8) K/uL RBC 3.66 L (3.80-5.20) Mil/uL Hgb 8.3 L (11.0-16.0) g/dL Hct 28.0 L (34.0-47.0) % MCV 76.4 L (81.0-99.0) fL MCH 22.8 L (27.0-31.0) pg MCHC 29.8 L (33.0-37.0) g/dL RDW 22.3 H (11.5-14.5) % Plt Count 222 (130-400) K/uL MPV 9.9 (7.2-11.7) fL Neut % (Auto) 85.0 H (50.0-75.0) % Lymph % (Auto) 6.9 L (20.0-40.0) % [place] % (Auto) 7.4 (0.0-10.0) % Eos % (Auto) 0.5 (0.0-4.0) % Baso % (Auto) 0.2 (0.0-2.0) % Neut # (Auto) 11.5 H (1.8-7.0) K/uL Lymph # (Auto) 0.9 L (1.0-4.3) K/uL [place] # (Auto) 1.0 H (0.0-0.8) K/uL Eos # (Auto) 0.1 (0.0-0.7) K/uL Baso # (Auto) 0.0 (0.0-0.2) K/uL Neutrophils % (Manual) 83 H (50-75) % Band Neutrophils % 2 (0-2) % Lymphocytes % (Manual) 6 L (20-40) % Monocytes % (Manual) 7 (0-10) % Metamyelocytes % 2 H (0-0) % Nucleated RBC % 1 H (0-0) % Platelet Estimate Normal (NORMAL) Hypochromasia (manual) Moderate Basophilic Stippling Slight Anisocytosis (manual) Moderate Ovalocytes Moderate Puncture Site pCO2 (35-45) mm/Hg pO2 (80-100) mm/Hg HCO3 (21-28) mmol/L ABG pH (7.35-7.45) ABG Total CO2 (22-28) mmol/L ABG O2 Saturation (95-98) % ABG Base Excess (-2.0-3.0) mmol/L ABG Hemoglobin (11.7-17.4) g/dL ABG Carboxyhemoglobin (0.5-1.5) % POC ABG HHb (Measured) (0.0-5.0) % ABG Methemoglobin (0.0-3.0) % Bill Test A-a O2 Difference mm/Hg Respiratory Index Hgb O2 Saturation (95.0-98.0) % Vent Mode Mechanical Rate FiO2 % Tidal Volume PEEP Sodium 151 H (132-148) mmol/L Potassium 4.2 (3.6-5.2) mmol/L Chloride 108 H (98-107) mmol/L Carbon Dioxide 39 H (22-30) mmol/L Anion Gap 9 L (10-20) BUN 24 H (7-17) mg/dL Creatinine 0.6 L (0.7-1.2) mg/dL Est GFR ( Amer) > 60 Est GFR (Non-Af Amer) > 60 POC Glucose (mg/dL) 179 H (65-110) mg/dL Random Glucose 147 H (65-105) mg/dL Calcium 9.2 (8.6-10.4) mg/dl Phosphorus 5.4 H (2.5-4.5) mg/dL Magnesium 2.0 (1.6-2.3) mg/dL Total Bilirubin 0.4 (0.2-1.3) mg/dL AST 25 (14-36) U/L ALT 72 H D (9-52) U/L Alkaline Phosphatase 69 (38-126) U/L Total Protein 5.5 L (6.3-8.3) g/dL Albumin 2.8 L (3.5-5.0) g/dL Globulin 2.8 (2.2-3.9) gm/dL Albumin/Globulin Ratio 1.0 (1.0-2.1) 09/09/17 09/09/17 09/08/17 Range/Units 05:14 05:04 23:56 WBC (4.8-10.8) K/uL RBC (3.80-5.20) Mil/uL Hgb (11.0-16.0) g/dL Hct (34.0-47.0) % MCV (81.0-99.0) fL MCH (27.0-31.0) pg MCHC (33.0-37.0) g/dL RDW (11.5-14.5) % Plt Count (130-400) K/uL MPV (7.2-11.7) fL Neut % (Auto) (50.0-75.0) % Lymph % (Auto) (20.0-40.0) % [place] % (Auto) (0.0-10.0) % Eos % (Auto) (0.0-4.0) % Baso % (Auto) (0.0-2.0) % Neut # (Auto) (1.8-7.0) K/uL Lymph # (Auto) (1.0-4.3) K/uL [place] # (Auto) (0.0-0.8) K/uL Eos # (Auto) (0.0-0.7) K/uL Baso # (Auto) (0.0-0.2) K/uL Neutrophils % (Manual) (50-75) % Band Neutrophils % (0-2) % Lymphocytes % (Manual) (20-40) % Monocytes % (Manual) (0-10) % Metamyelocytes % (0-0) % Nucleated RBC % (0-0) % Platelet Estimate (NORMAL) Hypochromasia (manual) Basophilic Stippling Anisocytosis (manual) Ovalocytes Puncture Site Rb pCO2 53 H (35-45) mm/Hg pO2 84 (80-100) mm/Hg HCO3 33.1 H (21-28) mmol/L ABG pH 7.44 (7.35-7.45) ABG Total CO2 37.6 H (22-28) mmol/L ABG O2 Saturation 98.5 H (95-98) % ABG Base Excess 10.5 H (-2.0-3.0) mmol/L ABG Hemoglobin 8.7 L (11.7-17.4) g/dL ABG Carboxyhemoglobin 2.1 H (0.5-1.5) % POC ABG HHb (Measured) 1.5 (0.0-5.0) % ABG Methemoglobin 1.1 (0.0-3.0) % Bill Test Na A-a O2 Difference 206.0 mm/Hg Respiratory Index 2.5 Hgb O2 Saturation 95.3 (95.0-98.0) % Vent Mode Prvc Mechanical Rate 18 FiO2 50.0 % Tidal Volume 500 PEEP 5 Sodium (132-148) mmol/L Potassium (3.6-5.2) mmol/L Chloride (98-107) mmol/L Carbon Dioxide (22-30) mmol/L Anion Gap (10-20) BUN (7-17) mg/dL Creatinine (0.7-1.2) mg/dL Est GFR ( Amer) Est GFR (Non-Af Amer) POC Glucose (mg/dL) 146 H 153 H (65-110) mg/dL Random Glucose (65-105) mg/dL Calcium (8.6-10.4) mg/dl Phosphorus (2.5-4.5) mg/dL Magnesium (1.6-2.3) mg/dL Total Bilirubin (0.2-1.3) mg/dL AST (14-36) U/L ALT (9-52) U/L Alkaline Phosphatase (38-126) U/L Total Protein (6.3-8.3) g/dL Albumin (3.5-5.0) g/dL Globulin (2.2-3.9) gm/dL Albumin/Globulin Ratio (1.0-2.1) 09/08/17 Range/Units 17:53 WBC (4.8-10.8) K/uL RBC (3.80-5.20) Mil/uL Hgb (11.0-16.0) g/dL Hct (34.0-47.0) % MCV (81.0-99.0) fL MCH (27.0-31.0) pg MCHC (33.0-37.0) g/dL RDW (11.5-14.5) % Plt Count (130-400) K/uL MPV (7.2-11.7) fL Neut % (Auto) (50.0-75.0) % Lymph % (Auto) (20.0-40.0) % [place] % (Auto) (0.0-10.0) % Eos % (Auto) (0.0-4.0) % Baso % (Auto) (0.0-2.0) % Neut # (Auto) (1.8-7.0) K/uL Lymph # (Auto) (1.0-4.3) K/uL [place] # (Auto) (0.0-0.8) K/uL Eos # (Auto) (0.0-0.7) K/uL Baso # (Auto) (0.0-0.2) K/uL Neutrophils % (Manual) (50-75) % Band Neutrophils % (0-2) % Lymphocytes % (Manual) (20-40) % Monocytes % (Manual) (0-10) % Metamyelocytes % (0-0) % Nucleated RBC % (0-0) % Platelet Estimate (NORMAL) Hypochromasia (manual) Basophilic Stippling Anisocytosis (manual) Ovalocytes Puncture Site pCO2 (35-45) mm/Hg pO2 (80-100) mm/Hg HCO3 (21-28) mmol/L ABG pH (7.35-7.45) ABG Total CO2 (22-28) mmol/L ABG O2 Saturation (95-98) % ABG Base Excess (-2.0-3.0) mmol/L ABG Hemoglobin (11.7-17.4) g/dL ABG Carboxyhemoglobin (0.5-1.5) % POC ABG HHb (Measured) (0.0-5.0) % ABG Methemoglobin (0.0-3.0) % Bill Test A-a O2 Difference mm/Hg Respiratory Index Hgb O2 Saturation (95.0-98.0) % Vent Mode Mechanical Rate FiO2 % Tidal Volume PEEP Sodium (132-148) mmol/L Potassium (3.6-5.2) mmol/L Chloride (98-107) mmol/L Carbon Dioxide (22-30) mmol/L Anion Gap (10-20) BUN (7-17) mg/dL Creatinine (0.7-1.2) mg/dL Est GFR ( Amer) Est GFR (Non-Af Amer) POC Glucose (mg/dL) 231 H (65-110) mg/dL Random Glucose (65-105) mg/dL Calcium (8.6-10.4) mg/dl Phosphorus (2.5-4.5) mg/dL Magnesium (1.6-2.3) mg/dL Total Bilirubin (0.2-1.3) mg/dL AST (14-36) U/L ALT (9-52) U/L Alkaline Phosphatase (38-126) U/L Total Protein (6.3-8.3) g/dL Albumin (3.5-5.0) g/dL Globulin (2.2-3.9) gm/dL Albumin/Globulin Ratio (1.0-2.1) Laboratory Results - last 24 hr 09/08/17 09/08/17 09/09/17 17:53 23:56 05:04 WBC RBC Hgb Hct MCV MCH MCHC RDW Plt Count MPV Neut % (Auto) Lymph % (Auto) [place] % (Auto) Eos % (Auto) Baso % (Auto) Neut # (Auto) Lymph # (Auto) [place] # (Auto) Eos # (Auto) Baso # (Auto) Neutrophils % (Manual) Band Neutrophils % Lymphocytes % (Manual) Monocytes % (Manual) Metamyelocytes % Nucleated RBC % Platelet Estimate Hypochromasia (manual) Basophilic Stippling Anisocytosis (manual) Ovalocytes Puncture Site pCO2 pO2 HCO3 ABG pH ABG Total CO2 ABG O2 Saturation ABG Base Excess ABG Hemoglobin ABG Carboxyhemoglobin POC ABG HHb (Measured) ABG Methemoglobin Bill Test A-a O2 Difference Respiratory Index Hgb O2 Saturation Vent Mode Mechanical Rate FiO2 Tidal Volume PEEP Sodium Potassium Chloride Carbon Dioxide Anion Gap BUN Creatinine Est GFR ( Amer) Est GFR (Non-Af Amer) POC Glucose (mg/dL) 231 H 153 H 146 H Random Glucose Calcium Phosphorus Magnesium Total Bilirubin AST ALT Alkaline Phosphatase Total Protein Albumin Globulin Albumin/Globulin Ratio 09/09/17 09/09/17 09/09/17 05:14 06:30 06:32 WBC 13.6 H RBC 3.66 L Hgb 8.3 L Hct 28.0 L MCV 76.4 L MCH 22.8 L MCHC 29.8 L RDW 22.3 H Plt Count 222 MPV 9.9 Neut % (Auto) 85.0 H Lymph % (Auto) 6.9 L [place] % (Auto) 7.4 Eos % (Auto) 0.5 Baso % (Auto) 0.2 Neut # (Auto) 11.5 H Lymph # (Auto) 0.9 L [place] # (Auto) 1.0 H Eos # (Auto) 0.1 Baso # (Auto) 0.0 Neutrophils % (Manual) 83 H Band Neutrophils % 2 Lymphocytes % (Manual) 6 L Monocytes % (Manual) 7 Metamyelocytes % 2 H Nucleated RBC % 1 H Platelet Estimate Normal Hypochromasia (manual) Moderate Basophilic Stippling Slight Anisocytosis (manual) Moderate Ovalocytes Moderate Puncture Site Rb pCO2 53 H pO2 84 HCO3 33.1 H ABG pH 7.44 ABG Total CO2 37.6 H ABG O2 Saturation 98.5 H ABG Base Excess 10.5 H ABG Hemoglobin 8.7 L ABG Carboxyhemoglobin 2.1 H POC ABG HHb (Measured) 1.5 ABG Methemoglobin 1.1 Bill Test Na A-a O2 Difference 206.0 Respiratory Index 2.5 Hgb O2 Saturation 95.3 Vent Mode Prvc Mechanical Rate 18 FiO2 50.0 Tidal Volume 500 PEEP 5 Sodium 151 H Potassium 4.2 Chloride 108 H Carbon Dioxide 39 H Anion Gap 9 L BUN 24 H Creatinine 0.6 L Est GFR ( Amer) > 60 Est GFR (Non-Af Amer) > 60 POC Glucose (mg/dL) Random Glucose 147 H Calcium 9.2 Phosphorus 5.4 H Magnesium 2.0 Total Bilirubin 0.4 AST 25 ALT 72 H D Alkaline Phosphatase 69 Total Protein 5.5 L Albumin 2.8 L Globulin 2.8 Albumin/Globulin Ratio 1.0 09/09/17 11:34 WBC RBC Hgb Hct MCV MCH MCHC RDW Plt Count MPV Neut % (Auto) Lymph % (Auto) [place] % (Auto) Eos % (Auto) Baso % (Auto) Neut # (Auto) Lymph # (Auto) [place] # (Auto) Eos # (Auto) Baso # (Auto) Neutrophils % (Manual) Band Neutrophils % Lymphocytes % (Manual) Monocytes % (Manual) Metamyelocytes % Nucleated RBC % Platelet Estimate Hypochromasia (manual) Basophilic Stippling Anisocytosis (manual) Ovalocytes Puncture Site pCO2 pO2 HCO3 ABG pH ABG Total CO2 ABG O2 Saturation ABG Base Excess ABG Hemoglobin ABG Carboxyhemoglobin POC ABG HHb (Measured) ABG Methemoglobin Bill Test A-a O2 Difference Respiratory Index Hgb O2 Saturation Vent Mode Mechanical Rate FiO2 Tidal Volume PEEP Sodium Potassium Chloride Carbon Dioxide Anion Gap BUN Creatinine Est GFR ( Amer) Est GFR (Non-Af Amer) POC Glucose (mg/dL) 179 H Random Glucose Calcium Phosphorus Magnesium Total Bilirubin AST ALT Alkaline Phosphatase Total Protein Albumin Globulin Albumin/Globulin Ratio EKG/Cardiology Studies: Cardiology / EKG Studies 09/08/17 19:48 EKG [ELECTROCARDIOGRAM] Stat Comment: Mode Of Transportation: BED Reason For Exam: cardiac arrythmia Isolation: Contact Fingerstick Blood Sugar Results: 148 Review of Systems - Review of Systems Systems not reviewed;Unavailable: Acuity of Condition Assessment/Plan - Assessment and Plan (Free Text) Assessment: Patient is a 72 year-old female with a past medical history of anxiety, asthma, CHF, COPD, CM, and emphysema who was admitted to the ICU after a rapid response was called on August 31 for acute hypoxemia that required intubation. Patient currently is being treated for sputum positive Klebsiella and yeast. Plan: Neurology: anxiety, neuropathy - Diprivan 1000mg qd for sedation @ 15.556 ml/hr - APAP 650mg/20.3ml soln UD q4 PRN cards: CHF (worsening EF; recs per spot welder line Dr. Slade) - Lopressor 25mg PO BID - check QTc x5d (09/06: 544) - ASA 81mg PO qd - Trial hydralazine/nitrates if BP tolerant (per [place]) Pulmonary: AECOPD, PNA, emphysema, asthma - Duoneb 3mg/0.5mg (3ml) UD 3ml INH RQ6 - check ABG and extubate pending CPAP trial - Trial CPAP at 5 and 18 pressure support titrate to sats >92%. - FiO2 50%, rate 16, spontaneous Vt 550-670 - Solu-Medrol 20mg IVP q12h increase to 40mg q8 - Add Singulair Endocrinology: DM2 - Novolin switch to Novolog (insulin/aspart) - 70/30 sc q6h - accuchecks blood sugar levels q4h nephro: CKD - Urinalysis measure chloride and culture - continue following I/O and kidney function tests - monitor Na levels closely - hold Lasix 2/2 hyperNa - No ACEi/ARB ID: ?sepsis - Klebsiella pneumoniae in sputum - Zithromax 500mg in 0.9%NaCl @ 250ml/hr IVPB qd - Merrem IV 1g in 0.9% NaCl @ 100ml/hr IVPB q8h - Mycamine 100mg in 0.9%NaCl @ 100ml/hr IV qd - Urine Culture: Positive for Yeast 09/07 - Tracheal Aspiration Culture: Positive for Klebsiella pneumoniae and Yeast 09/05 PPx: DVT, PUD - OGT feeds @ 50ml/hr - heparin 5000U sc q12 - Protonix 40mg IVP qd <[email or web address] - Last Filed: 09/09/17 18:54> CCU Objective - Vital Signs / Intake & Output Intake and Output (Last 8hrs): Intake & Output 09/09/17 09/09/17 09/09/17 06:59 14:59 22:59 Intake Total 584.8 110.6 Output Total 675 75 Balance -90.2 35.6 Intake: IV 200 75 Intake, IV Amount 224.8 15.6 Right Distal Port 124.8 15.6 Internal Jugular Right Medial Port 100 Internal Jugular Tube Feeding 160 20 Output: Urine 675 75 Urethral (Rico) 675 75 - Medications Active Medications: Active Medications Generic Name Dose Route Start Last Admin Trade Name Freq PRN Reason Stop Dose Admin Acetaminophen 650 mg 09/03/17 22:46 09/07/17 06:52 Tylenol 650mg/20.3ml Solution Ud PO 650 mg Q4 PRN Administration for temperature >101 F Albuterol/Ipratropium 3 ml 09/06/17 02:00 09/09/17 13:13 Duoneb 3 Mg/0.5 Mg (3 Ml) Ud INH 3 ml RQ6 JENNIFER Administration Aspirin 81 mg 09/02/17 10:30 09/09/17 09:07 Aspirin Chewable PO 81 mg DAILY JENNIFER Administration Meropenem 1 gm/ Sodium 100 mls @ 100 mls/hr 09/07/17 19:00 09/09/17 18:09 Chloride IVPB 100 mls/hr Q8H JENNIFER Administration Azithromycin 500 mg/ Sodium 250 mls @ 250 mls/hr 09/07/17 18:00 09/09/17 18: 17 Chloride IVPB 250 mls/hr Q24H JENNIFER Administration Micafungin Sodium 100 mg/ 100 mls @ 100 mls/hr 09/07/17 20:00 09/08/17 20:04 Sodium Chloride IV 100 mls/hr Q24H JENNIFER Administration Verapamil HCl 40 mg/ Sodium 100 mls @ 6.25 mls/hr 09/09/17 16:00 09/09/17 16: 33 Chloride IV 6.25 mls/hr .Q16H JENNIFER Administration Protocol 2.5 MG/HR Insulin Aspart 0 unit 09/09/17 18:00 09/09/17 18:16 Novolog SC Not Given Q6H [facility] Protocol Methylprednisolone 40 mg 09/09/17 18:00 09/09/17 17:56 Solu-Medrol IVP 40 mg Q6H JENNIFER Administration Metoprolol Tartrate 25 mg 09/06/17 10:00 09/09/17 17:56 Lopressor PO Not Given BID JENNIFER Pantoprazole Sodium 40 mg 09/02/17 10:45 09/09/17 09:08 Protonix Inj IVP 40 mg DAILY JENNIFER Administration - Patient Studies Lab Studies: Microbiology Studies 09/05/17 11:40 Blood Culture - Preliminary Blood NO GROWTH AFTER 4 DAYS 09/05/17 11:16 Blood Culture - Preliminary Blood NO GROWTH AFTER 4 DAYS 09/03/17 23:00 Blood Culture - Final Blood NO GROWTH AFTER 5 DAYS Gram Stain - Final TEST NOT PERFORMED 09/03/17 23:30 Blood Culture - Final Blood NO GROWTH AFTER 5 DAYS Gram Stain - Final TEST NOT PERFORMED 09/07/17 21:15 Blood Culture - Preliminary Blood-Venous NO GROWTH AFTER 24 HOURS 09/07/17 20:15 Blood Culture - Preliminary Blood-Venous NO GROWTH AFTER 24 HOURS Lab Studies 09/09/17 09/09/17 09/09/17 Range/Units 17:48 13:50 11:34 WBC (4.8-10.8) K/uL RBC (3.80-5.20) Mil/uL Hgb (11.0-16.0) g/dL Hct (34.0-47.0) % MCV (81.0-99.0) fL MCH (27.0-31.0) pg MCHC (33.0-37.0) g/dL RDW (11.5-14.5) % Plt Count (130-400) K/uL MPV (7.2-11.7) fL Neut % (Auto) (50.0-75.0) % Lymph % (Auto) (20.0-40.0) % [place] % (Auto) (0.0-10.0) % Eos % (Auto) (0.0-4.0) % Baso % (Auto) (0.0-2.0) % Neut # (Auto) (1.8-7.0) K/uL Lymph # (Auto) (1.0-4.3) K/uL [place] # (Auto) (0.0-0.8) K/uL Eos # (Auto) (0.0-0.7) K/uL Baso # (Auto) (0.0-0.2) K/uL Neutrophils % (Manual) (50-75) % Band Neutrophils % (0-2) % Lymphocytes % (Manual) (20-40) % Monocytes % (Manual) (0-10) % Metamyelocytes % (0-0) % Nucleated RBC % (0-0) % Platelet Estimate (NORMAL) Hypochromasia (manual) Basophilic Stippling Anisocytosis (manual) Ovalocytes Puncture Site Lra pCO2 47 H (35-45) mm/Hg pO2 66 L (80-100) mm/Hg HCO3 31.6 H (21-28) mmol/L ABG pH 7.46 H (7.35-7.45) ABG Total CO2 34.8 H (22-28) mmol/L ABG O2 Saturation 96.4 (95-98) % ABG Base Excess 8.6 H (-2.0-3.0) mmol/L ABG Hemoglobin 9.6 L (11.7-17.4) g/dL ABG Carboxyhemoglobin 2.3 H (0.5-1.5) % POC ABG HHb (Measured) 3.5 (0.0-5.0) % ABG Methemoglobin 1.1 (0.0-3.0) % Bill Test Po A-a O2 Difference 232.0 mm/Hg Respiratory Index 3.5 Hgb O2 Saturation 93.0 L (95.0-98.0) % Vent Mode Mechanical Rate FiO2 50.0 % Tidal Volume PEEP Sodium (132-148) mmol/L Potassium (3.6-5.2) mmol/L Chloride (98-107) mmol/L Carbon Dioxide (22-30) mmol/L Anion Gap (10-20) BUN (7-17) mg/dL Creatinine (0.7-1.2) mg/dL Est GFR ( Amer) Est GFR (Non-Af Amer) POC Glucose (mg/dL) 227 H 179 H (65-110) mg/dL Random Glucose (65-105) mg/dL Calcium (8.6-10.4) mg/dl Phosphorus (2.5-4.5) mg/dL Magnesium (1.6-2.3) mg/dL Total Bilirubin (0.2-1.3) mg/dL AST (14-36) U/L ALT (9-52) U/L Alkaline Phosphatase (38-126) U/L Total Protein (6.3-8.3) g/dL Albumin (3.5-5.0) g/dL Globulin (2.2-3.9) gm/dL Albumin/Globulin Ratio (1.0-2.1) 09/09/17 09/09/17 09/09/17 Range/Units 06:32 06:30 05:14 WBC 13.6 H (4.8-10.8) K/uL RBC 3.66 L (3.80-5.20) Mil/uL Hgb 8.3 L (11.0-16.0) g/dL Hct 28.0 L (34.0-47.0) % MCV 76.4 L (81.0-99.0) fL MCH 22.8 L (27.0-31.0) pg MCHC 29.8 L (33.0-37.0) g/dL RDW 22.3 H (11.5-14.5) % Plt Count 222 (130-400) K/uL MPV 9.9 (7.2-11.7) fL Neut % (Auto) 85.0 H (50.0-75.0) % Lymph % (Auto) 6.9 L (20.0-40.0) % [place] % (Auto) 7.4 (0.0-10.0) % Eos % (Auto) 0.5 (0.0-4.0) % Baso % (Auto) 0.2 (0.0-2.0) % Neut # (Auto) 11.5 H (1.8-7.0) K/uL Lymph # (Auto) 0.9 L (1.0-4.3) K/uL [place] # (Auto) 1.0 H (0.0-0.8) K/uL Eos # (Auto) 0.1 (0.0-0.7) K/uL Baso # (Auto) 0.0 (0.0-0.2) K/uL Neutrophils % (Manual) 83 H (50-75) % Band Neutrophils % 2 (0-2) % Lymphocytes % (Manual) 6 L (20-40) % Monocytes % (Manual) 7 (0-10) % Metamyelocytes % 2 H (0-0) % Nucleated RBC % 1 H (0-0) % Platelet Estimate Normal (NORMAL) Hypochromasia (manual) Moderate Basophilic Stippling Slight Anisocytosis (manual) Moderate Ovalocytes Moderate Puncture Site Rb pCO2 53 H (35-45) mm/Hg pO2 84 (80-100) mm/Hg HCO3 33.1 H (21-28) mmol/L ABG pH 7.44 (7.35-7.45) ABG Total CO2 37.6 H (22-28) mmol/L ABG O2 Saturation 98.5 H (95-98) % ABG Base Excess 10.5 H (-2.0-3.0) mmol/L ABG Hemoglobin 8.7 L (11.7-17.4) g/dL ABG Carboxyhemoglobin 2.1 H (0.5-1.5) % POC ABG HHb (Measured) 1.5 (0.0-5.0) % ABG Methemoglobin 1.1 (0.0-3.0) % Bill Test Na A-a O2 Difference 206.0 mm/Hg Respiratory Index 2.5 Hgb O2 Saturation 95.3 (95.0-98.0) % Vent Mode Prvc Mechanical Rate 18 FiO2 50.0 % Tidal Volume 500 PEEP 5 Sodium 151 H (132-148) mmol/L Potassium 4.2 (3.6-5.2) mmol/L Chloride 108 H (98-107) mmol/L Carbon Dioxide 39 H (22-30) mmol/L Anion Gap 9 L (10-20) BUN 24 H (7-17) mg/dL Creatinine 0.6 L (0.7-1.2) mg/dL Est GFR ( Amer) > 60 Est GFR (Non-Af Amer) > 60 POC Glucose (mg/dL) (65-110) mg/dL Random Glucose 147 H (65-105) mg/dL Calcium 9.2 (8.6-10.4) mg/dl Phosphorus 5.4 H (2.5-4.5) mg/dL Magnesium 2.0 (1.6-2.3) mg/dL Total Bilirubin 0.4 (0.2-1.3) mg/dL AST 25 (14-36) U/L ALT 72 H D (9-52) U/L Alkaline Phosphatase 69 (38-126) U/L Total Protein 5.5 L (6.3-8.3) g/dL Albumin 2.8 L (3.5-5.0) g/dL Globulin 2.8 (2.2-3.9) gm/dL Albumin/Globulin Ratio 1.0 (1.0-2.1) 09/09/17 09/08/17 Range/Units 05:04 23:56 WBC (4.8-10.8) K/uL RBC (3.80-5.20) Mil/uL Hgb (11.0-16.0) g/dL Hct (34.0-47.0) % MCV (81.0-99.0) fL MCH (27.0-31.0) pg MCHC (33.0-37.0) g/dL RDW (11.5-14.5) % Plt Count (130-400) K/uL MPV (7.2-11.7) fL Neut % (Auto) (50.0-75.0) % Lymph % (Auto) (20.0-40.0) % [place] % (Auto) (0.0-10.0) % Eos % (Auto) (0.0-4.0) % Baso % (Auto) (0.0-2.0) % Neut # (Auto) (1.8-7.0) K/uL Lymph # (Auto) (1.0-4.3) K/uL [place] # (Auto) (0.0-0.8) K/uL Eos # (Auto) (0.0-0.7) K/uL Baso # (Auto) (0.0-0.2) K/uL Neutrophils % (Manual) (50-75) % Band Neutrophils % (0-2) % Lymphocytes % (Manual) (20-40) % Monocytes % (Manual) (0-10) % Metamyelocytes % (0-0) % Nucleated RBC % (0-0) % Platelet Estimate (NORMAL) Hypochromasia (manual) Basophilic Stippling Anisocytosis (manual) Ovalocytes Puncture Site pCO2 (35-45) mm/Hg pO2 (80-100) mm/Hg HCO3 (21-28) mmol/L ABG pH (7.35-7.45) ABG Total CO2 (22-28) mmol/L ABG O2 Saturation (95-98) % ABG Base Excess (-2.0-3.0) mmol/L ABG Hemoglobin (11.7-17.4) g/dL ABG Carboxyhemoglobin (0.5-1.5) % POC ABG HHb (Measured) (0.0-5.0) % ABG Methemoglobin (0.0-3.0) % Bill Test A-a O2 Difference mm/Hg Respiratory Index Hgb O2 Saturation (95.0-98.0) % Vent Mode Mechanical Rate FiO2 % Tidal Volume PEEP Sodium (132-148) mmol/L Potassium (3.6-5.2) mmol/L Chloride (98-107) mmol/L Carbon Dioxide (22-30) mmol/L Anion Gap (10-20) BUN (7-17) mg/dL Creatinine (0.7-1.2) mg/dL Est GFR ( Amer) Est GFR (Non-Af Amer) POC Glucose (mg/dL) 146 H 153 H (65-110) mg/dL Random Glucose (65-105) mg/dL Calcium (8.6-10.4) mg/dl Phosphorus (2.5-4.5) mg/dL Magnesium (1.6-2.3) mg/dL Total Bilirubin (0.2-1.3) mg/dL AST (14-36) U/L ALT (9-52) U/L Alkaline Phosphatase (38-126) U/L Total Protein (6.3-8.3) g/dL Albumin (3.5-5.0) g/dL Globulin (2.2-3.9) gm/dL Albumin/Globulin Ratio (1.0-2.1) Laboratory Results - last 24 hr 09/08/17 09/09/17 09/09/17 23:56 05:04 05:14 WBC RBC Hgb Hct MCV MCH MCHC RDW Plt Count MPV Neut % (Auto) Lymph % (Auto) [place] % (Auto) Eos % (Auto) Baso % (Auto) Neut # (Auto) Lymph # (Auto) [place] # (Auto) Eos # (Auto) Baso # (Auto) Neutrophils % (Manual) Band Neutrophils % Lymphocytes % (Manual) Monocytes % (Manual) Metamyelocytes % Nucleated RBC % Platelet Estimate Hypochromasia (manual) Basophilic Stippling Anisocytosis (manual) Ovalocytes Puncture Site Rb pCO2 53 H pO2 84 HCO3 33.1 H ABG pH 7.44 ABG Total CO2 37.6 H ABG O2 Saturation 98.5 H ABG Base Excess 10.5 H ABG Hemoglobin 8.7 L ABG Carboxyhemoglobin 2.1 H POC ABG HHb (Measured) 1.5 ABG Methemoglobin 1.1 Bill Test Na A-a O2 Difference 206.0 Respiratory Index 2.5 Hgb O2 Saturation 95.3 Vent Mode Prvc Mechanical Rate 18 FiO2 50.0 Tidal Volume 500 PEEP 5 Sodium Potassium Chloride Carbon Dioxide Anion Gap BUN Creatinine Est GFR ( Amer) Est GFR (Non-Af Amer) POC Glucose (mg/dL) 153 H 146 H Random Glucose Calcium Phosphorus Magnesium Total Bilirubin AST ALT Alkaline Phosphatase Total Protein Albumin Globulin Albumin/Globulin Ratio 09/09/17 09/09/17 09/09/17 06:30 06:32 11:34 WBC 13.6 H RBC 3.66 L Hgb 8.3 L Hct 28.0 L MCV 76.4 L MCH 22.8 L MCHC 29.8 L RDW 22.3 H Plt Count 222 MPV 9.9 Neut % (Auto) 85.0 H Lymph % (Auto) 6.9 L [place] % (Auto) 7.4 Eos % (Auto) 0.5 Baso % (Auto) 0.2 Neut # (Auto) 11.5 H Lymph # (Auto) 0.9 L [place] # (Auto) 1.0 H Eos # (Auto) 0.1 Baso # (Auto) 0.0 Neutrophils % (Manual) 83 H Band Neutrophils % 2 Lymphocytes % (Manual) 6 L Monocytes % (Manual) 7 Metamyelocytes % 2 H Nucleated RBC % 1 H Platelet Estimate Normal Hypochromasia (manual) Moderate Basophilic Stippling Slight Anisocytosis (manual) Moderate Ovalocytes Moderate Puncture Site pCO2 pO2 HCO3 ABG pH ABG Total CO2 ABG O2 Saturation ABG Base Excess ABG Hemoglobin ABG Carboxyhemoglobin POC ABG HHb (Measured) ABG Methemoglobin Bill Test A-a O2 Difference Respiratory Index Hgb O2 Saturation Vent Mode Mechanical Rate FiO2 Tidal Volume PEEP Sodium 151 H Potassium 4.2 Chloride 108 H Carbon Dioxide 39 H Anion Gap 9 L BUN 24 H Creatinine 0.6 L Est GFR ( Amer) > 60 Est GFR (Non-Af Amer) > 60 POC Glucose (mg/dL) 179 H Random Glucose 147 H Calcium 9.2 Phosphorus 5.4 H Magnesium 2.0 Total Bilirubin 0.4 AST 25 ALT 72 H D Alkaline Phosphatase 69 Total Protein 5.5 L Albumin 2.8 L Globulin 2.8 Albumin/Globulin Ratio 1.0 09/09/17 09/09/17 13:50 17:48 WBC RBC Hgb Hct MCV MCH MCHC RDW Plt Count MPV Neut % (Auto) Lymph % (Auto) [place] % (Auto) Eos % (Auto) Baso % (Auto) Neut # (Auto) Lymph # (Auto) [place] # (Auto) Eos # (Auto) Baso # (Auto) Neutrophils % (Manual) Band Neutrophils % Lymphocytes % (Manual) Monocytes % (Manual) Metamyelocytes % Nucleated RBC % Platelet Estimate Hypochromasia (manual) Basophilic Stippling Anisocytosis (manual) Ovalocytes Puncture Site Lra pCO2 47 H pO2 66 L HCO3 31.6 H ABG pH 7.46 H ABG Total CO2 34.8 H ABG O2 Saturation 96.4 ABG Base Excess 8.6 H ABG Hemoglobin 9.6 L ABG Carboxyhemoglobin 2.3 H POC ABG HHb (Measured) 3.5 ABG Methemoglobin 1.1 Bill Test Po A-a O2 Difference 232.0 Respiratory Index 3.5 Hgb O2 Saturation 93.0 L Vent Mode Mechanical Rate FiO2 50.0 Tidal Volume PEEP Sodium Potassium Chloride Carbon Dioxide Anion Gap BUN Creatinine Est GFR ( Amer) Est GFR (Non-Af Amer) POC Glucose (mg/dL) 227 H Random Glucose Calcium Phosphorus Magnesium Total Bilirubin AST ALT Alkaline Phosphatase Total Protein Albumin Globulin Albumin/Globulin Ratio EKG/Cardiology Studies: Cardiology / EKG Studies 09/08/17 19:48 EKG [ELECTROCARDIOGRAM] Stat Comment: Mode Of Transportation: BED Reason For Exam: cardiac arrythmia Isolation: Contact Assessment/Plan - Assessment and Plan (Free Text) Plan: Patient seen and examined at bedside with ICU team. Patient intubated for COPD exacerbation. -Hypoxic and hypercapneic respiratory failure: continue bronchodilators, (+) wheezing, increase solumedrol, start singulair -Diastolic heart failure: CXR reveals less congestoin, NA 151 and patient has no JVD distension, hold lasix for taday -sepsis:klebsiella, continue abx -tolerated CPAP trials today, will extubate is wheening parameters are good -Novalog q6hrs ISS cc time spent 45 minutes - Date & Time Date: 09/09/17 Time: 13:00
--- NOTE | 2017-09-09 13:01 | CP.PCM.PN ---
Subjective - Date & Time of Evaluation Date of Evaluation: 09/09/17 Time of Evaluation: 12:58 - Subjective Subjective: pt extubated sob puls oxy 94 Objective - Vital Signs/Intake and Output Vital Signs (last 24 hours): Temp Pulse Resp BP Pulse Ox 98.4 F 84 18 142/64 97 09/09/17 04:00 09/09/17 07:00 09/09/17 07:00 09/09/17 10:04 09/09/17 07:00 Intake and Output: 09/09/17 09/09/17 06:59 18:59 Intake Total 827.2 35.6 Output Total 970 75 Balance -142.8 -39.4 - Medications Medications: Current Medications Acetaminophen (Tylenol 650mg/20.3ml Solution Ud) 650 mg PO Q4 PRN PRN Reason: for temperature >101 F Last Admin: 09/07/17 06:52 Dose: 650 mg Albuterol/Ipratropium (Duoneb 3 Mg/0.5 Mg (3 Ml) Ud) 3 ml INH RQ6 [facility] Last Admin: 09/09/17 07:36 Dose: 3 ml Aspirin (Aspirin Chewable) 81 mg PO DAILY [facility] Last Admin: 09/09/17 09:07 Dose: 81 mg Meropenem 1 gm/ Sodium (Chloride) 100 mls @ 100 mls/hr IVPB Q8H [facility] Last Admin: 09/09/17 02:45 Dose: 100 mls/hr Azithromycin 500 mg/ Sodium (Chloride) 250 mls @ 250 mls/hr IVPB Q24H [facility] Last Admin: 09/08/17 17:59 Dose: 250 mls/hr Micafungin Sodium 100 mg/ (Sodium Chloride) 100 mls @ 100 mls/hr IV Q24H [facility] Last Admin: 09/08/17 20:04 Dose: 100 mls/hr Insulin Aspart (Novolog) 0 unit SC Q6H [facility] PRN Reason: Protocol Methylprednisolone (Solu-Medrol) 40 mg IVP Q6H [facility] Metoprolol Tartrate (Lopressor) 25 mg PO BID [facility] Last Admin: 09/09/17 10:04 Dose: 25 mg Pantoprazole Sodium (Protonix Inj) 40 mg IVP DAILY [facility] Last Admin: 09/09/17 09:08 Dose: 40 mg - Labs Labs: 09/09/17 06:32 09/09/17 06:30 PT 12.6 SECONDS (9.7-12.2) H 08/30/17 23:18 INR 1.1 08/30/17 23:18 APTT 28 SECONDS (21-34) 08/30/17 23:18 - Constitutional Appears: In Acute Distress - Head Exam Head Exam: ATRAUMATIC - Eye Exam Eye Exam: Normal appearance Pupil Exam: NORMAL ACCOMODATION - ENT Exam ENT Exam: Mucous Membranes Moist - Neck Exam Neck Exam: Full ROM - Respiratory Exam Respiratory Exam: Decreased Breath Sounds, Rales - Cardiovascular Exam Cardiovascular Exam: Tachycardia, REGULAR RHYTHM - GI/Abdominal Exam GI & Abdominal Exam: Normal Bowel Sounds - Rectal Exam Rectal Exam: Deferred - Extremities Exam Extremities Exam: Normal Inspection - Neurological Exam Neurological Exam: Awake, Oriented x3 - Psychiatric Exam Psychiatric exam: Normal Affect - Skin Skin Exam: Pallor Assessment and Plan - Assessment and Plan (Free Text) Assessment: s/p resp failiur pnumonia arrythmia aneamia Plan: cont as per orders
[2017-09-09 13:52] LABS: ABG ALLEN TEST PO; ARTERIAL BLOOD GAS HCO3 31.6 mmol/L (21-28); ARTERIAL BLOOD GAS HEMOGLOBIN 9.6 g/dL (11.7-17.4); ARTERIAL BLOOD GAS O2 SAT 96.4 % (95-98); ARTERIAL BLOOD GAS PCO2 47 mm/Hg (35-45); ARTERIAL BLOOD GAS PH 7.46 (7.35-7.45); ARTERIAL BLOOD GAS PO2 66 mm/Hg (80-100); ARTERIAL BLOOD GAS TCO2 34.8 mmol/L (22-28)
[2017-09-09] MEDS ORDERED: MethylPREDNISolone 40 mg Vial IVP SCH (14:00)
[2017-09-09] MEDS: Verapamil 40 MG in Sodium Chloride 0.9% 84 ML IV SCH (16:33)
[2017-09-09] MEDS: (Novolog) Insulin Aspart, Recombinant 100 u/ml 10 ml vial SC SCH (18:16)
[2017-09-09] MEDS: Azithromycin 500 MG in Sodium Chloride 0.9% 250 ML IVPB SCH (18:17)
--- NOTE | 2017-09-09 19:35 | CP.PCM.PN ---
Subjective - Date & Time of Evaluation Date of Evaluation: 09/09/17 Time of Evaluation: 19:33 - Subjective Subjective: Pt is extubated, on bipap, looks exhausted. Objective - Vital Signs/Intake and Output Vital Signs (last 24 hours): Temp Pulse Resp BP Pulse Ox 98.4 F 84 18 142/64 97 09/09/17 04:00 09/09/17 07:00 09/09/17 07:00 09/09/17 10:04 09/09/17 07:00 Intake and Output: 09/09/17 09/10/17 18:59 06:59 Intake Total 110.6 Output Total 75 Balance 35.6 - Medications Medications: Current Medications Acetaminophen (Tylenol 650mg/20.3ml Solution Ud) 650 mg PO Q4 PRN PRN Reason: for temperature >101 F Last Admin: 09/07/17 06:52 Dose: 650 mg Albuterol/Ipratropium (Duoneb 3 Mg/0.5 Mg (3 Ml) Ud) 3 ml INH RQ6 [facility] Last Admin: 09/09/17 13:13 Dose: 3 ml Aspirin (Aspirin Chewable) 81 mg PO DAILY [facility] Last Admin: 09/09/17 09:07 Dose: 81 mg Meropenem 1 gm/ Sodium (Chloride) 100 mls @ 100 mls/hr IVPB Q8H [facility] Last Admin: 09/09/17 18:09 Dose: 100 mls/hr Azithromycin 500 mg/ Sodium (Chloride) 250 mls @ 250 mls/hr IVPB Q24H [facility] Last Admin: 09/09/17 18:17 Dose: 250 mls/hr Micafungin Sodium 100 mg/ (Sodium Chloride) 100 mls @ 100 mls/hr IV Q24H [facility] Last Admin: 09/08/17 20:04 Dose: 100 mls/hr Verapamil HCl 40 mg/ Sodium (Chloride) 100 mls @ 6.25 mls/hr IV .Q16H [facility]; 2.5 MG/HR PRN Reason: Protocol Last Admin: 09/09/17 16:33 Dose: 6.25 mls/hr Insulin Aspart (Novolog) 0 unit SC Q6H [facility] PRN Reason: Protocol Last Admin: 09/09/17 18:16 Dose: Not Given Methylprednisolone (Solu-Medrol) 40 mg IVP Q6H [facility] Last Admin: 09/09/17 17:56 Dose: 40 mg Metoprolol Tartrate (Lopressor) 25 mg PO BID [facility] Last Admin: 09/09/17 17:56 Dose: Not Given Pantoprazole Sodium (Protonix Inj) 40 mg IVP DAILY [facility] Last Admin: 09/09/17 09:08 Dose: 40 mg - Labs Labs: 09/09/17 06:32 09/09/17 06:30 PT 12.6 SECONDS (9.7-12.2) H 08/30/17 23:18 INR 1.1 08/30/17 23:18 APTT 28 SECONDS (21-34) 08/30/17 23:18 - Constitutional Appears: Chronically Ill - Head Exam Head Exam: ATRAUMATIC - Eye Exam Eye Exam: EOMI - ENT Exam ENT Exam: Mucous Membranes Dry - Neck Exam Neck Exam: Full ROM - Respiratory Exam Respiratory Exam: Prolonged Expiratory Phase, Rhonchi - Cardiovascular Exam Cardiovascular Exam: REGULAR RHYTHM - GI/Abdominal Exam GI & Abdominal Exam: Normal Bowel Sounds - Extremities Exam Extremities Exam: Normal Inspection - Neurological Exam Neurological Exam: Awake, CN II-XII Intact - Psychiatric Exam Psychiatric exam: Anxious - Skin Skin Exam: Pallor Assessment and Plan - Assessment and Plan (Free Text) Assessment: 1. Remains tachycardia. Will advance beta hector. Add hydralazine and ntrates ( no mukul/arb due due hypernatremia). 2. Add aldactone. 2. CXR not c/w chf. 4. Severe cardiomyopathy.
--- NOTE | 2017-09-09 19:55 | CP.PCM.PN ---
Subjective - Date & Time of Evaluation Date of Evaluation: 09/09/17 Time of Evaluation: 19:55 - Subjective Subjective: CHIEF COMPLAINTS TODAY : patient extubated today ON BIPAP opens eyes on name AWAKE AND RESPONSIVE. ROS. HEENT : N. Resp : +VE SOB wheezing, cough Cardio : No CP, PND orthopnea GI : No abd. Pain, n/v [employer]AT : No headache , focal deficit. Musculoskel : N Ext. : Pedal pulses intact, no edema or calf pain Derm : N Psych : N. PE. Pt. is AWAKE in no distress .EXTUBATED. V.S As noted in the chart Head ,ear nose,throat and eyes : Normal. Neck : Supple with normal carotids. Lungs: BETTER AERATION BOTH BASES. Heart : S1 & S2 REGULAR . No murmur. Abd : Soft non tender with normal bowel sounds. Neuro : Moves all ext. with no localized deficit. Ext : No edema with intact pulses. Neg. calf tenderness Derm : No rashes or decubitus ulcer. Radiology/Labs . REVIEWED. wbc IMPROVING CHEST X-RAY RIGHT LOWER LUNG MEDIAL OPACITY ? ARTIFACTUAL urine culture+ve yeast Tracheal aspirate +ve Klebsiella pneumoniae/yeast. Objective - Vital Signs/Intake and Output Vital Signs (last 24 hours): Temp Pulse Resp BP Pulse Ox 98.4 F 84 18 142/64 97 09/09/17 04:00 09/09/17 07:00 09/09/17 07:00 09/09/17 10:04 09/09/17 07:00 Intake and Output: 09/09/17 09/10/17 18:59 06:59 Intake Total 110.6 Output Total 75 Balance 35.6 - Medications Medications: Current Medications Acetaminophen (Tylenol 650mg/20.3ml Solution Ud) 650 mg PO Q4 PRN PRN Reason: for temperature >101 F Last Admin: 09/07/17 06:52 Dose: 650 mg Albuterol/Ipratropium (Duoneb 3 Mg/0.5 Mg (3 Ml) Ud) 3 ml INH RQ6 [facility] Last Admin: 09/09/17 13:13 Dose: 3 ml Aspirin (Aspirin Chewable) 81 mg PO DAILY [facility] Last Admin: 09/09/17 09:07 Dose: 81 mg Hydralazine HCl (Apresoline) 25 mg PO BID [facility] Meropenem 1 gm/ Sodium (Chloride) 100 mls @ 100 mls/hr IVPB Q8H [facility] Last Admin: 09/09/17 18:09 Dose: 100 mls/hr Azithromycin 500 mg/ Sodium (Chloride) 250 mls @ 250 mls/hr IVPB Q24H [facility] Last Admin: 09/09/17 18:17 Dose: 250 mls/hr Micafungin Sodium 100 mg/ (Sodium Chloride) 100 mls @ 100 mls/hr IV Q24H [facility] Last Admin: 09/08/17 20:04 Dose: 100 mls/hr Verapamil HCl 40 mg/ Sodium (Chloride) 100 mls @ 6.25 mls/hr IV .Q16H [facility]; 2.5 MG/HR PRN Reason: Protocol Last Admin: 09/09/17 16:33 Dose: 6.25 mls/hr Insulin Aspart (Novolog) 0 unit SC Q6H [facility] PRN Reason: Protocol Last Admin: 09/09/17 18:16 Dose: Not Given Isosorbide Mononitrate (Imdur) 30 mg PO DAILY [facility] Methylprednisolone (Solu-Medrol) 40 mg IVP Q6H [facility] Last Admin: 09/09/17 17:56 Dose: 40 mg Metoprolol Tartrate (Lopressor) 50 mg PO BID [facility] Pantoprazole Sodium (Protonix Inj) 40 mg IVP DAILY [facility] Last Admin: 09/09/17 09:08 Dose: 40 mg Spironolactone (Aldactone) 25 mg PO DAILY [facility] - Labs Labs: 09/09/17 06:32 09/09/17 06:30 PT 12.6 SECONDS (9.7-12.2) H 08/30/17 23:18 INR 1.1 08/30/17 23:18 APTT 28 SECONDS (21-34) 08/30/17 23:18 Assessment and Plan (1) Respiratory failure Status: Acute (2) Fever Status: Acute (3) Pneumonia Status: Acute (4) COPD exacerbation Status: Acute (5) CHF (congestive heart failure) Status: Acute (6) Severe anemia Status: Acute (7) Type II diabetes mellitus Status: Acute (8) History of bilateral mastectomy Status: Acute - Assessment and Plan (Free Text) Plan: CONTINUE iv MEROPENEM 1 G EVERY 8 HOURLY 09/07/17. CONTINUE iv zITHROMAX 500 MG EVERY d DAILY. 09/07/17. ADD IV MYCAFUNGIN 100 MG iv PIGGYBACK ONCE A DAY DAILY .09/07/17. PATIENT ALSO ON STEROIDS IV FLUIDS PER CLINICAL UNIT COORDINATOR/ DR Sandi ULZ.. CASE DISCUSSED WITH ICU STAFF. pulmonary toilet.
[2017-09-09] MEDS: Micafungin 100 MG in Sodium Chloride 0.9% 100 ML IV SCH (20:15)
--- NOTE | 2017-09-09 23:10 | CARD ---
APPROVED REPORT EKG Measurement Heart [id number] <Conclusion> Sinus rhythm with ventricular complexes and premature T wave abnormality, consider anterolateral ischemia Prolonged QT Abnormal ECG
[2017-09-10] MEDS: MethylPREDNISolone 40 mg Vial IVP SCH ×5 (01:00→23:44)
[2017-09-10] MEDS: Albuterol-Ipratrop 3 mg / 0.5 (3 ml) UD INH SCH ×4 (01:11→20:16)
[2017-09-10] MEDS: Meropenem 1 GM in Sodium Chloride 0.9% 100 ML IVPB SCH ×3 (03:00→19:46)
[2017-09-10] MEDS: (Novolog) Insulin Aspart, Recombinant 100 u/ml 10 ml vial SC SCH ×4 (05:40→17:57)
[2017-09-10] MEDS: Verapamil 40 MG in Sodium Chloride 0.9% 84 ML IV SCH ×3 (05:55→20:50)
[2017-09-10 06:28] LABS: BASO % 0.2 % (0.0-2.0); HEMOGLOBIN 9.6 g/dL (11.0-16.0); LYMPH # 0.5 K/uL (1.0-4.3); LYMPH % 2.8 % (20.0-40.0); MEAN CELL VOLUME 76.1 fL (81.0-99.0); MEAN CORPUSCULAR HEMOGLOBIN 22.7 pg (27.0-31.0); MEAN CORPUSCULAR HGB CONC 29.8 g/dL (33.0-37.0); MEAN PLATELET VOLUME 9.7 fL (7.2-11.7); MONO # 0.7 K/uL (0.0-0.8); NRBC % 0.2 % (0.0-2.0); PLATELET COUNT 318 K/uL (130-400); RBC 4.23 Mil/uL (3.80-5.20); RED CELL DISTRIBUTION WIDTH 22.8 % (11.5-14.5); WHITE BLOOD COUNT 18.3 K/uL (4.8-10.8)
[2017-09-10 06:51] LABS: ALB/GLOB RATIO 1.1 (1.0-2.1); ALBUMIN 3.2 g/dL (3.5-5.0); ALT/SGPT 76 U/L (9-52); AST/SGOT 39 U/L (14-36); BLOOD UREA NITROGEN 25 mg/dL (7-17); CALCIUM 9.5 mg/dl (8.6-10.4); GFR AFRICAN-AMERICAN > 60; GFR NON-AFRICAN AMERICAN > 60
[2017-09-10 08:30] LABS: ANISOCYTOSIS MODERATE; HYPOCHROMIC MODERATE; LYMPHOCYTE 2 % (20-40); MICROCYTOSIS MODERATE; MONOCYTE 4 % (0-10); NEUTROPHIL 94 % (50-75); PLATELET ESTIMATE NORMAL (NORMAL); POIKILOCYTOSIS SLIGHT; TOTAL CELLS COUNTED 100
[2017-09-10 08:31] LABS: BURR CELLS SLIGHT; OVALOCYTES SLIGHT; POLYCHROMIC SLIGHT; SPHEROCYTES SLIGHT
[2017-09-10 08:32] LABS: LARGE PLATELETS PRESENT
--- NOTE | 2017-09-10 09:43 | CP.PCM.PN ---
Subjective - Date & Time of Evaluation Date of Evaluation: 09/10/17 Time of Evaluation: 09:40 - Subjective Subjective: mor comfortable today on bipap Objective - Vital Signs/Intake and Output Vital Signs (last 24 hours): Temp Pulse Resp BP Pulse Ox 97.5 F L 106 H 25 H 149/90 97 09/10/17 04:00 09/10/17 09:00 09/10/17 09:00 09/10/17 08:01 09/10/17 09:00 Intake and Output: 09/10/17 09/10/17 06:59 18:59 Intake Total 375.5 6.3 Output Total 900 30 Balance -524.5 -23.7 - Medications Medications: Current Medications Acetaminophen (Tylenol 650mg/20.3ml Solution Ud) 650 mg PO Q4 PRN PRN Reason: for temperature >101 F Last Admin: 09/07/17 06:52 Dose: 650 mg Albuterol/Ipratropium (Duoneb 3 Mg/0.5 Mg (3 Ml) Ud) 3 ml INH RQ6 [facility] Last Admin: 09/10/17 07:38 Dose: 3 ml Aspirin (Aspirin Chewable) 81 mg PO DAILY [facility] Last Admin: 09/10/17 09:10 Dose: 81 mg Hydralazine HCl (Apresoline) 25 mg PO BID [facility] Last Admin: 09/10/17 09:10 Dose: 25 mg Meropenem 1 gm/ Sodium (Chloride) 100 mls @ 100 mls/hr IVPB Q8H [facility] Last Admin: 09/10/17 03:00 Dose: 100 mls/hr Azithromycin 500 mg/ Sodium (Chloride) 250 mls @ 250 mls/hr IVPB Q24H [facility] Last Admin: 09/09/17 18:17 Dose: 250 mls/hr Micafungin Sodium 100 mg/ (Sodium Chloride) 100 mls @ 100 mls/hr IV Q24H [facility] Last Admin: 09/09/17 20:15 Dose: 100 mls/hr Verapamil HCl 40 mg/ Sodium (Chloride) 100 mls @ 6.25 mls/hr IV .Q16H [facility]; 2.5 MG/HR PRN Reason: Protocol Last Admin: 09/10/17 08:31 Dose: Not Given Insulin Aspart (Novolog) 0 unit SC Q6H [facility] PRN Reason: Protocol Last Admin: 09/10/17 05:40 Dose: Not Given Isosorbide Mononitrate (Imdur) 30 mg PO DAILY [facility] Last Admin: 09/10/17 09:09 Dose: 30 mg Methylprednisolone (Solu-Medrol) 40 mg IVP Q6H [facility] Last Admin: 09/10/17 05:20 Dose: 40 mg Metoprolol Tartrate (Lopressor) 50 mg PO BID [facility] Last Admin: 09/10/17 09:10 Dose: 50 mg Pantoprazole Sodium (Protonix Inj) 40 mg IVP DAILY [facility] Last Admin: 09/10/17 09:09 Dose: 40 mg Spironolactone (Aldactone) 25 mg PO DAILY [facility] Last Admin: 09/10/17 09:10 Dose: 25 mg - Labs Labs: 09/10/17 06:21 09/10/17 06:22 PT 12.6 SECONDS (9.7-12.2) H 08/30/17 23:18 INR 1.1 08/30/17 23:18 APTT 28 SECONDS (21-34) 08/30/17 23:18 - Constitutional Appears: Non-toxic - Head Exam Head Exam: ATRAUMATIC - Eye Exam Eye Exam: Normal appearance Pupil Exam: NORMAL ACCOMODATION - ENT Exam ENT Exam: Mucous Membranes Moist - Neck Exam Neck Exam: Full ROM - Respiratory Exam Respiratory Exam: Rales, Rhonchi - Cardiovascular Exam Cardiovascular Exam: Tachycardia, Irregular Rhythm - GI/Abdominal Exam GI & Abdominal Exam: Soft - Extremities Exam Extremities Exam: Normal Inspection - Psychiatric Exam Psychiatric exam: Normal Affect - Skin Skin Exam: Cyanosis Assessment and Plan - Assessment and Plan (Free Text) Assessment: s/p resp failiur ac pnumonia copd chr arrythmia Plan: cont as per orders
--- NOTE | 2017-09-10 13:24 | CP.PCM.PN ---
Subjective - Date & Time of Evaluation Date of Evaluation: 09/10/17 Time of Evaluation: 13:15 - Subjective Subjective: Patient tolerated Extubation. was on bi-pap over night. voice still hoarse Objective - Vital Signs/Intake and Output Vital Signs (last 24 hours): Temp Pulse Resp BP Pulse Ox 97.5 F L 82 22 125/67 98 09/10/17 04:00 09/10/17 12:01 09/10/17 12:01 09/10/17 12:01 09/10/17 12:01 Intake and Output: 09/10/17 09/10/17 06:59 18:59 Intake Total 375.5 12.6 Output Total 900 140 Balance -524.5 -127.4 - Medications Medications: Current Medications Acetaminophen (Tylenol 650mg/20.3ml Solution Ud) 650 mg PO Q4 PRN PRN Reason: for temperature >101 F Last Admin: 09/07/17 06:52 Dose: 650 mg Albuterol/Ipratropium (Duoneb 3 Mg/0.5 Mg (3 Ml) Ud) 3 ml INH RQ6 [facility] Last Admin: 09/10/17 07:38 Dose: 3 ml Aspirin (Aspirin Chewable) 81 mg PO DAILY [facility] Last Admin: 09/10/17 09:10 Dose: 81 mg Hydralazine HCl (Apresoline) 25 mg PO BID [facility] Last Admin: 09/10/17 09:10 Dose: 25 mg Meropenem 1 gm/ Sodium (Chloride) 100 mls @ 100 mls/hr IVPB Q8H [facility] Last Admin: 09/10/17 11:12 Dose: 100 mls/hr Azithromycin 500 mg/ Sodium (Chloride) 250 mls @ 250 mls/hr IVPB Q24H [facility] Last Admin: 09/09/17 18:17 Dose: 250 mls/hr Micafungin Sodium 100 mg/ (Sodium Chloride) 100 mls @ 100 mls/hr IV Q24H [facility] Last Admin: 09/09/17 20:15 Dose: 100 mls/hr Verapamil HCl 40 mg/ Sodium (Chloride) 100 mls @ 6.25 mls/hr IV .Q16H [facility]; 2.5 MG/HR PRN Reason: Protocol Last Admin: 09/10/17 08:31 Dose: Not Given Insulin Aspart (Novolog) 0 unit SC Q6H [facility] PRN Reason: Protocol Last Admin: 09/10/17 12:09 Dose: 2 unit Isosorbide Mononitrate (Imdur) 30 mg PO DAILY [facility] Last Admin: 09/10/17 09:09 Dose: 30 mg Methylprednisolone (Solu-Medrol) 40 mg IVP Q6H [facility] Last Admin: 09/10/17 12:09 Dose: 40 mg Metoprolol Tartrate (Lopressor) 50 mg PO BID [facility] Last Admin: 09/10/17 09:10 Dose: 50 mg Pantoprazole Sodium (Protonix Inj) 40 mg IVP DAILY [facility] Last Admin: 09/10/17 09:09 Dose: 40 mg Spironolactone (Aldactone) 25 mg PO DAILY [facility] Last Admin: 09/10/17 09:10 Dose: 25 mg - Labs Labs: 09/10/17 06:21 09/10/17 06:22 PT 12.6 SECONDS (9.7-12.2) H 08/30/17 23:18 INR 1.1 08/30/17 23:18 APTT 28 SECONDS (21-34) 08/30/17 23:18 - Constitutional Appears: No Acute Distress - Head Exam Head Exam: ATRAUMATIC, NORMAL INSPECTION, NORMOCEPHALIC - Eye Exam Pupil Exam: NORMAL ACCOMODATION - ENT Exam ENT Exam: Mucous Membranes Moist - Respiratory Exam Respiratory Exam: Clear to Ausculation Bilateral, NORMAL BREATHING PATTERN - Cardiovascular Exam Cardiovascular Exam: REGULAR RHYTHM, +S1, +S2, +S4 - GI/Abdominal Exam GI & Abdominal Exam: Normal Bowel Sounds Assessment and Plan - Assessment and Plan (Free Text) Plan: Patient seen and examined at bedside with ICU team. Patient intubated for COPD exacerbation and was extubated -Hypoxic and hypercapneic respiratory failure: continue bronchodilators, wheezing improved with increaseing solumedrol -Diastolic heart failure: CXR reveals less congestoin, patient has no JVD distension, continue to monitor -SVT: IV verapamil until oral intake could be given -sepsis:klebsiella, continue abx -bi-pap at night, aerosol during the day FiO2 50% -Novalog q6hrs ISS -Speach and swallow eval pending Patient will benefit from incentive spirometry and OOB to chair today
[2017-09-10] MEDS: Azithromycin 500 MG in Sodium Chloride 0.9% 250 ML IVPB SCH (17:57)
--- NOTE | 2017-09-10 19:37 | CP.PCM.PN ---
Subjective - Date & Time of Evaluation Date of Evaluation: 09/10/17 Time of Evaluation: 19:36 - Subjective Subjective: CHIEF COMPLAINTS TODAY : AFEBRILE ON BIPAP +VE HOARSENESS COMFORTABLE . ROS. HEENT : N. Resp : NO SOB wheezing, cough Cardio : No CP, PND orthopnea GI : No abd. Pain, n/v [employer] : No headache , focal deficit. Musculoskel : N Ext. : Pedal pulses intact, no edema or calf pain Derm : N Psych : N. PE. Pt. is AWAKE in no distress .EXTUBATED.ON BIPAP V.S As noted in the chart Head ,ear nose,throat and eyes : Normal. Neck : Supple with normal carotids. Lungs: BETTER AERATION BOTH BASES. Heart : S1 & S2 REGULAR . No murmur. Abd : Soft non tender with normal bowel sounds. Neuro : Moves all ext. with no localized deficit. Ext : No edema with intact pulses. Neg. calf tenderness Derm : No rashes or decubitus ulcer. Radiology/Labs . REVIEWED. CHEST X-RAY RIGHT LOWER LUNG MEDIAL OPACITY ? ARTIFACTUAL urine culture+ve yeast Tracheal aspirate +ve Klebsiella pneumoniae/yeast. Objective - Vital Signs/Intake and Output Vital Signs (last 24 hours): Temp Pulse Resp BP Pulse Ox 98.3 F 102 H 19 151/80 H 92 L 09/10/17 16:00 09/10/17 18:01 09/10/17 18:01 09/10/17 18:01 09/10/17 18:01 Intake and Output: 09/10/17 09/11/17 18:59 06:59 Intake Total 425.6 Output Total 800 Balance -374.4 - Medications Medications: Current Medications Acetaminophen (Tylenol 650mg/20.3ml Solution Ud) 650 mg PO Q4 PRN PRN Reason: for temperature >101 F Last Admin: 09/07/17 06:52 Dose: 650 mg Albuterol/Ipratropium (Duoneb 3 Mg/0.5 Mg (3 Ml) Ud) 3 ml INH RQ6 [facility] Last Admin: 09/10/17 13:35 Dose: 3 ml Aspirin (Aspirin Chewable) 81 mg PO DAILY [facility] Last Admin: 09/10/17 09:10 Dose: 81 mg Hydralazine HCl (Apresoline) 25 mg PO BID [facility] Last Admin: 09/10/17 17:56 Dose: 25 mg Meropenem 1 gm/ Sodium (Chloride) 100 mls @ 100 mls/hr IVPB Q8H [facility] [place] Last Admin: 09/10/17 11:12 Dose: 100 mls/hr Azithromycin 500 mg/ Sodium (Chloride) 250 mls @ 250 mls/hr IVPB Q24H [facility] [place] Last Admin: 09/10/17 17:57 Dose: 250 mls/hr Micafungin Sodium 100 mg/ (Sodium Chloride) 100 mls @ 100 mls/hr IV Q24H [facility] [place] Last Admin: 09/09/17 20:15 Dose: 100 mls/hr Verapamil HCl 40 mg/ Sodium (Chloride) 100 mls @ 6.25 mls/hr IV .Q16H [facility]; 2.5 MG/HR PRN Reason: Protocol Last Admin: 09/10/17 08:31 Dose: Not Given Insulin Aspart (Novolog) 0 unit SC Q6H [facility] PRN Reason: Protocol Last Admin: 09/10/17 17:57 Dose: 2 unit Isosorbide Mononitrate (Imdur) 30 mg PO DAILY [facility] [place] Last Admin: 09/10/17 09:09 Dose: 30 mg Methylprednisolone (Solu-Medrol) 40 mg IVP Q6H [facility] [place] Last Admin: 09/10/17 17:56 Dose: 40 mg Metoprolol Tartrate (Lopressor) 50 mg PO BID [facility] [place] Last Admin: 09/10/17 17:56 Dose: 50 mg Pantoprazole Sodium (Protonix Inj) 40 mg IVP DAILY [facility] [place] Last Admin: 09/10/17 09:09 Dose: 40 mg Spironolactone (Aldactone) 25 mg PO DAILY [facility] [place] Last Admin: 09/10/17 09:10 Dose: 25 mg - Labs Labs: 09/10/17 06:21 09/10/17 06:22 PT 12.6 SECONDS (9.7-12.2) H 08/30/17 23:18 INR 1.1 08/30/17 23:18 APTT 28 SECONDS (21-34) 08/30/17 23:18 Assessment and Plan (1) Respiratory failure Status: Acute (2) Fever Status: Acute (3) Pneumonia Status: Acute (4) COPD exacerbation Status: Acute (5) CHF (congestive heart failure) Status: Acute (6) Severe anemia Status: Acute (7) Type II diabetes mellitus Status: Acute (8) History of bilateral mastectomy Status: Acute - Assessment and Plan (Free Text) Plan: CONTINUE iv MEROPENEM 1 G EVERY 8 HOURLY 09/07/17. CONTINUE iv ZITHROMAX 500 MG EVERY d DAILY. 09/07/17. ON IV MYCAFUNGIN 100 MG iv PIGGYBACK ONCE A DAY DAILY .09/07/17. IV STEROIDS PER PULMONARY/PHARMACY DISTRICT MANAGER PULMONARY TOILET.
[2017-09-10] MEDS: Micafungin 100 MG in Sodium Chloride 0.9% 100 ML IV SCH (20:51)
[2017-09-11] MEDS: (Novolog) Insulin Aspart, Recombinant 100 u/ml 10 ml vial SC SCH ×5 (00:19→22:03)
[2017-09-11] MEDS: Albuterol-Ipratrop 3 mg / 0.5 (3 ml) UD INH SCH ×2 (02:11→07:45)
[2017-09-11] MEDS: Meropenem 1 GM in Sodium Chloride 0.9% 100 ML IVPB SCH ×3 (03:11→18:16)
[2017-09-11] MEDS: MethylPREDNISolone 40 mg Vial IVP SCH ×3 (05:30→18:17)
[2017-09-11 06:46] LABS: BLOOD UREA NITROGEN 27 mg/dL (7-17); GFR AFRICAN-AMERICAN > 60; GFR NON-AFRICAN AMERICAN > 60
[2017-09-11 06:47] LABS: ALT/SGPT 73 U/L (9-52); AST/SGOT 44 U/L (14-36)
[2017-09-11 07:11] LABS: BASO % 0.3 % (0.0-2.0); HEMOGLOBIN 9.2 g/dL (11.0-16.0); LYMPH # 0.5 K/uL (1.0-4.3); LYMPH % 2.9 % (20.0-40.0); MEAN CORPUSCULAR HEMOGLOBIN 22.7 pg (27.0-31.0); MEAN CORPUSCULAR HGB CONC 29.9 g/dL (33.0-37.0); MEAN PLATELET VOLUME 9.3 fL (7.2-11.7); MONO # 0.8 K/uL (0.0-0.8); MONO % 4.6 % (0.0-10.0); NEUT # 16.9 K/uL (1.8-7.0); NEUT % 92.2 % (50.0-75.0); NRBC % 0.3 % (0.0-2.0); PLATELET COUNT 322 K/uL (130-400); RBC 4.07 Mil/uL (3.80-5.20); RED CELL DISTRIBUTION WIDTH 22.1 % (11.5-14.5); WHITE BLOOD COUNT 18.3 K/uL (4.8-10.8)
[2017-09-11 08:21] LABS: LYMPHOCYTE 3 % (20-40); MONOCYTE 6 % (0-10); NEUTROPHIL 91 % (50-75); TOTAL CELLS COUNTED 100
[2017-09-11 08:22] LABS: ANISOCYTOSIS MODERATE; PLATELET ESTIMATE NORMAL (NORMAL)
[2017-09-11 08:24] LABS: HYPOCHROMIC MODERATE; MICROCYTOSIS SLIGHT; POIKILOCYTOSIS SLIGHT
[2017-09-11 08:25] LABS: OVALOCYTES SLIGHT; SCHISTOCYTES SLIGHT; SPHEROCYTES SLIGHT; TEARDROP CELLS SLIGHT
[2017-09-11 08:26] LABS: LARGE PLATELETS PRESENT
--- NOTE | 2017-09-11 11:36 | CP.PCM.PN ---
Subjective - Date & Time of Evaluation Date of Evaluation: 09/11/17 Time of Evaluation: 11:34 - Subjective Subjective: still in icu on oxygen mask comfortale Objective - Vital Signs/Intake and Output Vital Signs (last 24 hours): Temp Pulse Resp BP Pulse Ox 98 F 94 H 29 H 122/47 L 91 L 09/11/17 08:00 09/11/17 10:01 09/11/17 10:01 09/11/17 10:01 09/11/17 10:01 Intake and Output: 09/11/17 09/11/17 06:59 18:59 Intake Total 565.2 Output Total 650 225 Balance -84.8 -225 - Medications Medications: Current Medications Acetaminophen (Tylenol 650mg/20.3ml Solution Ud) 650 mg PO Q4 PRN PRN Reason: for temperature >101 F Last Admin: 09/07/17 06:52 Dose: 650 mg Aspirin (Aspirin Chewable) 81 mg PO DAILY [facility] Last Admin: 09/11/17 09:23 Dose: 81 mg Hydralazine HCl (Apresoline) 25 mg PO BID [facility] Last Admin: 09/11/17 09:23 Dose: 25 mg Meropenem 1 gm/ Sodium (Chloride) 100 mls @ 100 mls/hr IVPB Q8H [facility] Last Admin: 09/11/17 03:11 Dose: 100 mls/hr Azithromycin 500 mg/ Sodium (Chloride) 250 mls @ 250 mls/hr IVPB Q24H [facility] Last Admin: 09/10/17 17:57 Dose: 250 mls/hr Micafungin Sodium 100 mg/ (Sodium Chloride) 100 mls @ 100 mls/hr IV Q24H [facility] Last Admin: 09/10/17 20:51 Dose: 100 mls/hr Insulin Aspart (Novolog) 0 unit SC Q6H [facility] PRN Reason: Protocol Last Admin: 09/11/17 05:41 Dose: Not Given Isosorbide Mononitrate (Imdur) 30 mg PO DAILY [facility] Last Admin: 09/11/17 09:23 Dose: 30 mg Methylprednisolone (Solu-Medrol) 40 mg IVP Q6H [facility] Last Admin: 09/11/17 05:30 Dose: 40 mg Metoprolol Tartrate (Lopressor) 50 mg PO BID [facility] Last Admin: 09/11/17 09:23 Dose: 50 mg Pantoprazole Sodium (Protonix Inj) 40 mg IVP DAILY [facility] Last Admin: 09/11/17 09:23 Dose: 40 mg Spironolactone (Aldactone) 25 mg PO DAILY [facility] Last Admin: 09/11/17 09:23 Dose: 25 mg Verapamil HCl (Calan Tab) 40 mg PO TID [facility] Last Admin: 09/11/17 09:23 Dose: 40 mg - Labs Labs: 09/11/17 06:21 09/11/17 06:21 PT 12.6 SECONDS (9.7-12.2) H 08/30/17 23:18 INR 1.1 08/30/17 23:18 APTT 28 SECONDS (21-34) 08/30/17 23:18 - Constitutional Appears: In Acute Distress - Head Exam Head Exam: NORMAL INSPECTION - Eye Exam Eye Exam: Normal appearance Pupil Exam: NORMAL ACCOMODATION - ENT Exam ENT Exam: Mucous Membranes Moist - Neck Exam Neck Exam: Full ROM - Respiratory Exam Respiratory Exam: Decreased Breath Sounds - Cardiovascular Exam Cardiovascular Exam: REGULAR RHYTHM - GI/Abdominal Exam GI & Abdominal Exam: Normal Bowel Sounds - Extremities Exam Extremities Exam: Normal Capillary Refill - Back Exam Back Exam: NORMAL INSPECTION - Neurological Exam Neurological Exam: Alert, Oriented x3 - Psychiatric Exam Psychiatric exam: Normal Affect - Skin Skin Exam: Pallor Assessment and Plan - Assessment and Plan (Free Text) Assessment: ac pnumonia copd s/p resp failiur Plan: cont as per icu orders
--- NOTE | 2017-09-11 12:33 | CP.PCM.PN ---
Subjective - Date & Time of Evaluation Date of Evaluation: 09/11/17 Time of Evaluation: 12:30 - Subjective Subjective: Patient awake, alert, tolerating humidified oxygen at 30%, voice better Objective - Vital Signs/Intake and Output Vital Signs (last 24 hours): Temp Pulse Resp BP Pulse Ox 98 F 82 25 H 123/42 L 91 L 09/11/17 08:00 09/11/17 11:02 09/11/17 11:02 09/11/17 11:02 09/11/17 11:02 Intake and Output: 09/11/17 09/11/17 06:59 18:59 Intake Total 565.2 100 Output Total 650 225 Balance -84.8 -125 - Medications Medications: Current Medications Acetaminophen (Tylenol 650mg/20.3ml Solution Ud) 650 mg PO Q4 PRN PRN Reason: for temperature >101 F Last Admin: 09/07/17 06:52 Dose: 650 mg Aspirin (Aspirin Chewable) 81 mg PO DAILY [facility] Last Admin: 09/11/17 09:23 Dose: 81 mg Hydralazine HCl (Apresoline) 25 mg PO BID [facility] Last Admin: 09/11/17 09:23 Dose: 25 mg Meropenem 1 gm/ Sodium (Chloride) 100 mls @ 100 mls/hr IVPB Q8H [facility] Last Admin: 09/11/17 11:51 Dose: 100 mls/hr Azithromycin 500 mg/ Sodium (Chloride) 250 mls @ 250 mls/hr IVPB Q24H [facility] Last Admin: 09/10/17 17:57 Dose: 250 mls/hr Micafungin Sodium 100 mg/ (Sodium Chloride) 100 mls @ 100 mls/hr IV Q24H [facility] Last Admin: 09/10/17 20:51 Dose: 100 mls/hr Insulin Aspart (Novolog) 0 unit SC Q6H [facility] PRN Reason: Protocol Last Admin: 09/11/17 05:41 Dose: Not Given Isosorbide Mononitrate (Imdur) 30 mg PO DAILY [facility] Last Admin: 09/11/17 09:23 Dose: 30 mg Methylprednisolone (Solu-Medrol) 40 mg IVP Q6H [facility] Last Admin: 09/11/17 11:51 Dose: 40 mg Metoprolol Tartrate (Lopressor) 50 mg PO BID [facility] Last Admin: 09/11/17 09:23 Dose: 50 mg Pantoprazole Sodium (Protonix Inj) 40 mg IVP DAILY [facility] Last Admin: 09/11/17 09:23 Dose: 40 mg Spironolactone (Aldactone) 25 mg PO DAILY [facility] Last Admin: 09/11/17 09:23 Dose: 25 mg Verapamil HCl (Calan Tab) 40 mg PO TID [facility] Last Admin: 09/11/17 09:23 Dose: 40 mg - Labs Labs: 09/11/17 06:21 09/11/17 06:21 PT 12.6 SECONDS (9.7-12.2) H 08/30/17 23:18 INR 1.1 08/30/17 23:18 APTT 28 SECONDS (21-34) 08/30/17 23:18 Assessment and Plan - Assessment and Plan (Free Text) Assessment: Patient seen and examined at bedside. Patient intubated for COPD exacerbation and was extubated 2 days ago. -Hypoxic and hypercapneic respiratory failure: continue bronchodilators, wheezing resolved, continue current bronchodilators and solumedrol -Diastolic heart failure: CXR reveals less congestoin, patient has no JVD distension, continue to monitor -SVT: IV verapamil until oral intake could be given, titrate off verapamil -sepsis:klebsiella, continue abx as per ID, de-escalate abx -bi-pap at night, aerosol during the day FiO2 30% -Novalog q6hrs ISS -Speach and swallow eval pending -PT/OT -Patient will benefit from incentive spirometry and OOB to chair today Patient remains hemodynamically stable. Patient uses 2 liters of oxygen at home.
[2017-09-11] MEDS: Azithromycin 500 MG in Sodium Chloride 0.9% 250 ML IVPB SCH (18:17)
[2017-09-11] MEDS: Micafungin 100 MG in Sodium Chloride 0.9% 100 ML IV SCH (20:32)
[2017-09-12] MEDS: MethylPREDNISolone 40 mg Vial IVP SCH ×3 (00:07→21:18)
[2017-09-12] MEDS: Meropenem 1 GM in Sodium Chloride 0.9% 100 ML IVPB SCH ×3 (02:51→19:45)
[2017-09-12 05:55] LABS: ABG ALLEN TEST POS; ARTERIAL BLOOD GAS HCO3 30.6 mmol/L (21-28); ARTERIAL BLOOD GAS O2 SAT 98.7 % (95-98); ARTERIAL BLOOD GAS PCO2 53 mm/Hg (35-45); ARTERIAL BLOOD GAS PH 7.41 (7.35-7.45); ARTERIAL BLOOD GAS PO2 93 mm/Hg (80-100); ARTERIAL BLOOD GAS TCO2 35.2 mmol/L (22-28)
[2017-09-12 06:26] LABS: BASO % 0.1 % (0.0-2.0); HEMOGLOBIN 9.9 g/dL (11.0-16.0); LYMPH # 0.5 K/uL (1.0-4.3); LYMPH % 2.8 % (20.0-40.0); MEAN CELL VOLUME 75.8 fL (81.0-99.0); MEAN CORPUSCULAR HEMOGLOBIN 22.8 pg (27.0-31.0); MEAN CORPUSCULAR HGB CONC 30.1 g/dL (33.0-37.0); MEAN PLATELET VOLUME 9.4 fL (7.2-11.7); MONO % 5.3 % (0.0-10.0); NEUT # 16.7 K/uL (1.8-7.0); NEUT % 91.8 % (50.0-75.0); NRBC % 0.1 % (0.0-2.0); PLATELET COUNT 332 K/uL (130-400); RBC 4.32 Mil/uL (3.80-5.20); RED CELL DISTRIBUTION WIDTH 22.5 % (11.5-14.5); WHITE BLOOD COUNT 18.2 K/uL (4.8-10.8)
[2017-09-12 06:45] LABS: ALBUMIN 3.1 g/dL (3.5-5.0); ALT/SGPT 64 U/L (9-52); AST/SGOT 32 U/L (14-36); BLOOD UREA NITROGEN 26 mg/dL (7-17); GFR AFRICAN-AMERICAN > 60; GFR NON-AFRICAN AMERICAN > 60
[2017-09-12] MEDS: (Novolog) Insulin Aspart, Recombinant 100 u/ml 10 ml vial SC SCH ×4 (07:43→21:13)
--- NOTE | 2017-09-12 08:25 | RAD ---
HISTORY: eval COPD COMPARISON: 09/09/2017 FINDINGS: LUNGS: No infiltrate. Opacity at right apex likely represents overlying tubing connector. PLEURA: No significant pleural effusion identified, no pneumothorax apparent. CARDIOVASCULAR: Status post removal of endotracheal tube and nasogastric tube. Right IJ central venous catheter persists unchanged. Sternotomy wires. CABG. Normal heart size. OSSEOUS STRUCTURES: No significant abnormalities. VISUALIZED UPPER ABDOMEN: Normal. OTHER FINDINGS: None. IMPRESSION: No active disease.
[2017-09-12 08:36] LABS: ANISOCYTOSIS MODERATE; BANDS 3 % (0-2); HYPOCHROMIC MODERATE; LYMPHOCYTE 2 % (20-40); MONOCYTE 3 % (0-10); NEUTROPHIL 92 % (50-75); PLATELET ESTIMATE NORMAL (NORMAL); TOTAL CELLS COUNTED 100
[2017-09-12 08:37] LABS: BURR CELLS SLIGHT; OVALOCYTES MODERATE; POIKILOCYTOSIS SLIGHT
--- NOTE | 2017-09-12 11:28 | CP.CCUPN ---
<Scott Mujica - Last Filed: 09/12/17 17:29> CCU Subjective - Physician Review Events Since Last Encounter (Free Text): 09/12/17 11:28 Patient seen and examined at bedside. Per nursing no acute events overnight. Subjective (Free Text): 09/05/17 11:17 Patient seen and examined at bedside. Per nursing no acute events overnight 09/05/17 16:21 Critical Care Time Spent (in minutes): 40 CCU Objective - Vital Signs / Intake & Output Vital Signs (Last 4 hours): Vital Signs Pulse Resp BP Pulse Ox 09/12/17 09:02 90 19 161/62 H 95 09/12/17 09:00 94 H 21 96 09/12/17 08:02 96 H 22 139/65 96 09/12/17 08:00 106 H 22 96 09/12/17 07:38 100 H Intake and Output (Last 8hrs): Intake & Output 09/11/17 09/12/17 09/12/17 22:59 06:59 14:59 Intake Total 400 220 60 Output Total 551 410 38 Balance -151 -190 22 Intake: Intake, IV Amount 400 100 Right Medial Port 400 100 Internal Jugular Oral 120 60 Output: Urine 550 410 38 Urethral (Rico) 550 410 38 Stool 1 - Physical Exam Head: Positive for: Atraumatic, Normocephalic Pupils: Positive for: PERRL Mouth: Positive for: Moist Mucous Membranes Respiratory/Chest: Positive for: Good Air Exchange, Wheezes, Rhonchi Cardiovascular: Positive for: Regular Rate and Rhythm, Normal S1, S2 Abdomen: Positive for: Normal Bowel Sounds Upper Extremity: Positive for: Normal Inspection - Medications Active Medications: Active Medications Generic Name Dose Route Start Last Admin Trade Name Freq PRN Reason Stop Dose Admin Acetaminophen 650 mg 09/03/17 22:46 09/07/17 06:52 Tylenol 650mg/20.3ml Solution Ud PO 650 mg Q4 PRN Administration for temperature >101 F Albuterol/Ipratropium 3 ml 09/12/17 14:00 Duoneb 3 Mg/0.5 Mg (3 Ml) Ud INH RQ6 JENNIFER Aspirin 81 mg 09/02/17 10:30 09/12/17 09:38 Aspirin Chewable PO 81 mg DAILY JENN[facility]ER Administration Hydralazine HCl 25 mg 09/10/17 10:00 09/12/17 09:41 Apresoline PO 25 mg BID [facility] Administration Meropenem 1 gm/ Sodium 100 mls @ 100 mls/hr 09/07/17 19:00 09/12/17 02:51 Chloride IVPB 100 mls/hr Q8H JENNIFER Administration Azithromycin 500 mg/ Sodium 250 mls @ 250 mls/hr 09/07/17 18:00 09/11/17 18: 17 Chloride IVPB 250 mls/hr Q24H JENN[facility]ER Administration Micafungin Sodium 100 mg/ 100 mls @ 100 mls/hr 09/07/17 20:00 09/11/17 20:32 Sodium Chloride IV 100 mls/hr Q24H JENN[facility]ER Administration Insulin Aspart 0 unit 09/11/17 22:00 09/12/17 07:43 [facility] Isosorbide Mononitrate 30 mg 09/10/17 10:00 09/12/17 09:40 Imdur PO 30 mg DAILY [facility] Administration Methylprednisolone 40 mg 09/12/17 22:00 Solu-Medrol IVP Q12 [facility] Metoprolol Tartrate 50 mg 09/10/17 10:00 09/12/17 09:38 Lopressor PO 50 mg BID [facility] Administration Pantoprazole Sodium 40 mg 09/02/17 10:45 09/12/17 09:30 Protonix Inj IVP 40 mg DAILY [facility] Administration Spironolactone 25 mg 09/10/17 10:00 09/12/17 09:35 Aldactone PO 25 mg DAILY [facility] Administration Verapamil HCl 40 mg 09/10/17 21:10 09/12/17 10:30 Calan Tab PO 40 mg TID JENNIFER Administration - Patient Studies Lab Studies: Microbiology Studies 09/07/17 21:15 Blood Culture - Preliminary Blood-Venous NO GROWTH AFTER 4 DAYS 09/07/17 20:15 Blood Culture - Preliminary Blood-Venous NO GROWTH AFTER 4 DAYS Lab Studies 09/12/17 09/12/17 09/12/17 Range/Units 06:17 06:13 05:09 WBC 18.2 H (4.8-10.8) K/uL RBC 4.32 (3.80-5.20) Mil/uL Hgb 9.9 L (11.0-16.0) g/dL Hct 32.8 L (34.0-47.0) % MCV 75.8 L (81.0-99.0) fL MCH 22.8 L (27.0-31.0) pg MCHC 30.1 L (33.0-37.0) g/dL RDW 22.5 H (11.5-14.5) % Plt Count 332 (130-400) K/uL MPV 9.4 (7.2-11.7) fL Neut % (Auto) 91.8 H (50.0-75.0) % Lymph % (Auto) 2.8 L (20.0-40.0) % [place] % (Auto) 5.3 (0.0-10.0) % Eos % (Auto) 0.0 (0.0-4.0) % Baso % (Auto) 0.1 (0.0-2.0) % Neut # (Auto) 16.7 H (1.8-7.0) K/uL Lymph # (Auto) 0.5 L (1.0-4.3) K/uL [place] # (Auto) 1.0 H (0.0-0.8) K/uL Eos # (Auto) 0.0 (0.0-0.7) K/uL Baso # (Auto) 0.0 (0.0-0.2) K/uL Neutrophils % (Manual) 92 H (50-75) % Band Neutrophils % 3 H (0-2) % Lymphocytes % (Manual) 2 L (20-40) % Monocytes % (Manual) 3 (0-10) % Platelet Estimate Normal (NORMAL) Hypochromasia (manual) Moderate Poikilocytosis (manual Slight Anisocytosis (manual) Moderate Ovalocytes Moderate [place] Cells Slight Puncture Site Rr pCO2 53 H (35-45) mm/Hg pO2 93 (80-100) mm/Hg HCO3 30.6 H (21-28) mmol/L ABG pH 7.41 (7.35-7.45) ABG Total CO2 35.2 H (22-28) mmol/L ABG O2 Saturation 98.7 H (95-98) % ABG Base Excess 7.3 H (-2.0-3.0) mmol/L Bill Test Pos ABG Potassium 3.6 (3.6-5.2) mmol/L A-a O2 Difference 197.0 mm/Hg Respiratory Index 2.1 Sodium 145 148.0 (132-148) mmol/l Chloride 105 112.0 H (98-107) mmol/L Glucose 166 H (65-105) mg/dl Lactate 0.7 (0.7-2.1) mmol/L Vent Mode Bipap FiO2 50.0 % Inspiratory BiPAP 12 Expiratory BiPAP 6 Potassium 3.7 (3.6-5.2) mmol/L Carbon Dioxide 32 H (22-30) mmol/L Anion Gap 12 (10-20) BUN 26 H (7-17) mg/dL Creatinine 0.5 L (0.7-1.2) mg/dL Est GFR ( Amer) > 60 Est GFR (Non-Af Amer) > 60 POC Glucose (mg/dL) (65-110) mg/dL Random Glucose 159 H (65-105) mg/dL Calcium 9.0 (8.6-10.4) mg/dl Phosphorus 4.4 (2.5-4.5) mg/dL Magnesium 2.0 (1.6-2.3) mg/dL Total Bilirubin 0.6 (0.2-1.3) mg/dL AST 32 (14-36) U/L ALT 64 H (9-52) U/L Alkaline Phosphatase 70 (38-126) U/L Total Protein 6.1 L (6.3-8.3) g/dL Albumin 3.1 L (3.5-5.0) g/dL Globulin 3.0 (2.2-3.9) gm/dL Albumin/Globulin Ratio 1.0 (1.0-2.1) Arterial Blood Potassium 3.6 (3.6-5.2) mmol/L 09/11/17 09/11/17 09/11/17 Range/Units 21:25 17:43 11:46 WBC (4.8-10.8) K/uL RBC (3.80-5.20) Mil/uL Hgb (11.0-16.0) g/dL Hct (34.0-47.0) % MCV (81.0-99.0) fL MCH (27.0-31.0) pg MCHC (33.0-37.0) g/dL RDW (11.5-14.5) % Plt Count (130-400) K/uL MPV (7.2-11.7) fL Neut % (Auto) (50.0-75.0) % Lymph % (Auto) (20.0-40.0) % [place] % (Auto) (0.0-10.0) % Eos % (Auto) (0.0-4.0) % Baso % (Auto) (0.0-2.0) % Neut # (Auto) (1.8-7.0) K/uL Lymph # (Auto) (1.0-4.3) K/uL [place] # (Auto) (0.0-0.8) K/uL Eos # (Auto) (0.0-0.7) K/uL Baso # (Auto) (0.0-0.2) K/uL Neutrophils % (Manual) (50-75) % Band Neutrophils % (0-2) % Lymphocytes % (Manual) (20-40) % Monocytes % (Manual) (0-10) % Platelet Estimate (NORMAL) Hypochromasia (manual) Poikilocytosis (manual Anisocytosis (manual) Ovalocytes [place] Cells Puncture Site pCO2 (35-45) mm/Hg pO2 (80-100) mm/Hg HCO3 (21-28) mmol/L ABG pH (7.35-7.45) ABG Total CO2 (22-28) mmol/L ABG O2 Saturation (95-98) % ABG Base Excess (-2.0-3.0) mmol/L Bill Test ABG Potassium (3.6-5.2) mmol/L A-a O2 Difference mm/Hg Respiratory Index Sodium (132-148) mmol/l Chloride (98-107) mmol/L Glucose (65-105) mg/dl Lactate (0.7-2.1) mmol/L Vent Mode FiO2 % Inspiratory BiPAP Expiratory BiPAP Potassium (3.6-5.2) mmol/L Carbon Dioxide (22-30) mmol/L Anion Gap (10-20) BUN (7-17) mg/dL Creatinine (0.7-1.2) mg/dL Est GFR ( Amer) Est GFR (Non-Af Amer) POC Glucose (mg/dL) 223 H 150 H 167 H (65-110) mg/dL Random Glucose (65-105) mg/dL Calcium (8.6-10.4) mg/dl Phosphorus (2.5-4.5) mg/dL Magnesium (1.6-2.3) mg/dL Total Bilirubin (0.2-1.3) mg/dL AST (14-36) U/L ALT (9-52) U/L Alkaline Phosphatase (38-126) U/L Total Protein (6.3-8.3) g/dL Albumin (3.5-5.0) g/dL Globulin (2.2-3.9) gm/dL Albumin/Globulin Ratio (1.0-2.1) Arterial Blood Potassium (3.6-5.2) mmol/L Laboratory Results - last 24 hr 09/11/17 09/11/17 09/11/17 11:46 17:43 21:25 WBC RBC Hgb Hct MCV MCH MCHC RDW Plt Count MPV Neut % (Auto) Lymph % (Auto) [place] % (Auto) Eos % (Auto) Baso % (Auto) Neut # (Auto) Lymph # (Auto) [place] # (Auto) Eos # (Auto) Baso # (Auto) Neutrophils % (Manual) Band Neutrophils % Lymphocytes % (Manual) Monocytes % (Manual) Platelet Estimate Hypochromasia (manual) Poikilocytosis (manual Anisocytosis (manual) Ovalocytes [place] Cells Puncture Site pCO2 pO2 HCO3 ABG pH ABG Total CO2 ABG O2 Saturation ABG Base Excess Bill Test ABG Potassium A-a O2 Difference Respiratory Index Sodium Chloride Glucose Lactate Vent Mode FiO2 Inspiratory BiPAP Expiratory BiPAP Potassium Carbon Dioxide Anion Gap BUN Creatinine Est GFR ( Amer) Est GFR (Non-Af Amer) POC Glucose (mg/dL) 167 H 150 H 223 H Random Glucose Calcium Phosphorus Magnesium Total Bilirubin AST ALT Alkaline Phosphatase Total Protein Albumin Globulin Albumin/Globulin Ratio Arterial Blood Potassium 09/12/17 09/12/17 09/12/17 05:09 06:13 06:17 WBC 18.2 H RBC 4.32 Hgb 9.9 L Hct 32.8 L MCV 75.8 L MCH 22.8 L MCHC 30.1 L RDW 22.5 H Plt Count 332 MPV 9.4 Neut % (Auto) 91.8 H Lymph % (Auto) 2.8 L [place] % (Auto) 5.3 Eos % (Auto) 0.0 Baso % (Auto) 0.1 Neut # (Auto) 16.7 H Lymph # (Auto) 0.5 L [place] # (Auto) 1.0 H Eos # (Auto) 0.0 Baso # (Auto) 0.0 Neutrophils % (Manual) 92 H Band Neutrophils % 3 H Lymphocytes % (Manual) 2 L Monocytes % (Manual) 3 Platelet Estimate Normal Hypochromasia (manual) Moderate Poikilocytosis (manual Slight Anisocytosis (manual) Moderate Ovalocytes Moderate [place] Cells Slight Puncture Site Rr pCO2 53 H pO2 93 HCO3 30.6 H ABG pH 7.41 ABG Total CO2 35.2 H ABG O2 Saturation 98.7 H ABG Base Excess 7.3 H Bill Test Pos ABG Potassium 3.6 A-a O2 Difference 197.0 Respiratory Index 2.1 Sodium 148.0 145 Chloride 112.0 H 105 Glucose 166 H Lactate 0.7 Vent Mode Bipap FiO2 50.0 Inspiratory BiPAP 12 Expiratory BiPAP 6 Potassium 3.7 Carbon Dioxide 32 H Anion Gap 12 BUN 26 H Creatinine 0.5 L Est GFR ( Amer) > 60 Est GFR (Non-Af Amer) > 60 POC Glucose (mg/dL) Random Glucose 159 H Calcium 9.0 Phosphorus 4.4 Magnesium 2.0 Total Bilirubin 0.6 AST 32 ALT 64 H Alkaline Phosphatase 70 Total Protein 6.1 L Albumin 3.1 L Globulin 3.0 Albumin/Globulin Ratio 1.0 Arterial Blood Potassium 3.6 Fingerstick Blood Sugar Results: 223 Review of Systems - EENT Eyes: absent: Loss of Peripheral Vision, Sees Flashes, Loss of Vision Ears: absent: Dizziness Nose/Mouth/Throat: absent: Nasal Congestion, Nose Pain, Dysphagia, Mouth Pain - Cardiovascular Cardiovascular: absent: Chest Pain, Irregular Heart Rhythm, Leg Edema, Palpitations - Respiratory Additional comments: shortness of breath - Gastrointestinal Gastrointestinal: absent: Dyspepsia, Fecal Incontinence, Loose Stools, Vomiting - Genitourinary Genitourinary: absent: Pyuria, Nocturia - Musculoskeletal Musculoskeletal: absent: Arthralgias, Atrophy, Myalgias, Tingling - Integumentary Integumentary: absent: New Lesions, Rash - Neurological Neurological: absent: Dizziness, Restless Legs, Weakness - Hematologic/Lymphatic Hematologic: absent: Easy Bleeding Critical Care Progress Note - Nutrition Nutrition: Nutrition Category Date Time Status Diabetic [Consistent Carbohydrate] [DIET] Diets 09/11/17 Lunch Active Assessment/Plan - Assessment and Plan (Free Text) Assessment: 72 yr old Female with a past medical history of anxiety, asthma, CHF, COPD, CM , emphysema who was admitted to ICU after Rapid response called on August 31 from acute hypoxemia that required intubation. Patient currently being treated for Sputum positive Klebsiella and Yeast. Plan: Neurology: anxiety, neuropathy cards: CHF (worsening EF; recs per preparation room manager Dr. Slade) - Milrinone Drip discontinued. - measure CVP - Lopressor 25mg PO BID - check QTc x5d (09/06: 544) - ASA 81mg PO qd - Trial hydralazine/nitrates if BP tolerant (per [place]) pulm: AECOPD, PNA, emphysema, asthma -Extubated 09/09/17 - FiO2 50%, rate 16, spontaneous Vt 550-670 - Solu-Medrol 40mg IVP q12h Endocrinology: DM2 - ISS HIGH - accuchecks blood sugar levels q4h nephro: CKD -Urine Cx positive for yeast species.. - continue following I/O and kidney function tests - monitor Na levels closely - hold Lasix 2/2 hyperNa - No ACEi/ARB ID: ?[id number] - Klebsiella pneumoniae positive on sputum culture. Contineu Merrem and Zithromax - MycoplasmaIgM negative; Legionella pending PPx: DVT, PUD - OGT feeds @ 50ml/hr - Protonix 40mg IVP qd <Denton Scherer - Last Filed: 09/12/17 19:38> CCU Objective - Vital Signs / Intake & Output Vital Signs (Last 4 hours): Vital Signs Temp Pulse Resp BP Pulse Ox 09/12/17 18:01 84 107/54 L 96 09/12/17 18:00 85 96 09/12/17 17:02 75 99/47 L 96 09/12/17 17:00 80 97 09/12/17 16:50 85 118/61 09/12/17 16:03 92 H 21 116/79 88 L 09/12/17 16:00 97.3 F L 89 19 90 L Intake and Output (Last 8hrs): Intake & Output 0209/12/17 09/12/17 06:59 14:59 22:59 Intake Total 220 750 750 Output Total 410 252 210 Balance -190 498 540 Intake: Intake, IV Amount 100 130 350 Right Medial Port 100 130 350 Internal Jugular Oral 120 620 400 Output: Urine 410 252 210 Urethral (Rico) 410 252 210 Other: # Bowel Movements 1 1 - Medications Active Medications: Active Medications Generic Name Dose Route Start Last Admin Trade Name Freq PRN Reason Stop Dose Admin Acetaminophen 650 mg 09/03/17 22:46 09/07/17 06:52 Tylenol 650mg/20.3ml Solution Ud PO 650 mg Q4 PRN Administration for temperature >101 F Albuterol/Ipratropium 3 ml 09/12/17 14:00 09/12/17 13:47 Duoneb 3 Mg/0.5 Mg (3 Ml) Ud INH 3 ml RQ6 JENNIFER Administration Aspirin 81 mg 09/02/17 10:30 09/12/17 09:38 Aspirin Chewable PO 81 mg DAILY [facility] Administration Hydralazine HCl 25 mg 09/10/17 10:00 09/12/17 18:00 Apresoline PO 25 mg BID [facility] Administration Meropenem 1 gm/ Sodium 100 mls @ 100 mls/hr 09/07/17 19:00 09/12/17 11:00 Chloride IVPB 100 mls/hr Q8H [facility] Administration Micafungin Sodium 100 mg/ 100 mls @ 100 mls/hr 09/07/17 20:00 09/11/17 20:32 Sodium Chloride IV 100 mls/hr Q24H [facility] Administration Insulin Aspart 0 unit 09/11/17 22:00 09/12/17 16:26 Novolog SC 2 unit ACHS [facility] Administration Protocol Isosorbide Mononitrate 30 mg 09/10/17 10:00 09/12/17 09:40 Imdur PO 30 mg DAILY [facility] Administration Methylprednisolone 40 mg 09/12/17 22:00 Solu-Medrol IVP Q12 [facility] Metoprolol Tartrate 50 mg 09/10/17 10:00 09/12/17 18:42 Lopressor PO 50 mg BID [facility] Administration Pantoprazole Sodium 40 mg 09/02/17 10:45 09/12/17 09:30 Protonix Inj IVP 40 mg DAILY [facility] Administration Spironolactone 25 mg 09/10/17 10:00 09/12/17 09:35 Aldactone PO 25 mg DAILY [facility] Administration Verapamil HCl 40 mg 09/10/17 21:10 09/12/17 18:35 Calan Tab PO 40 mg TID [facility] Administration - Patient Studies Lab Studies: Microbiology Studies 09/07/17 21:15 Blood Culture - Preliminary Blood-Venous NO GROWTH AFTER 4 DAYS 09/07/17 20:15 Blood Culture - Preliminary Blood-Venous NO GROWTH AFTER 4 DAYS Lab Studies 09/12/17 09/12/17 09/12/17 Range/Units 16:14 12:38 06:17 WBC 18.2 H (4.8-10.8) K/uL RBC 4.32 (3.80-5.20) Mil/uL Hgb 9.9 L (11.0-16.0) g/dL Hct 32.8 L (34.0-47.0) % MCV 75.8 L (81.0-99.0) fL MCH 22.8 L (27.0-31.0) pg MCHC 30.1 L (33.0-37.0) g/dL RDW 22.5 H (11.5-14.5) % Plt Count 332 (130-400) K/uL MPV 9.4 (7.2-11.7) fL Neut % (Auto) 91.8 H (50.0-75.0) % Lymph % (Auto) 2.8 L (20.0-40.0) % [place] % (Auto) 5.3 (0.0-10.0) % Eos % (Auto) 0.0 (0.0-4.0) % Baso % (Auto) 0.1 (0.0-2.0) % Neut # (Auto) 16.7 H (1.8-7.0) K/uL Lymph # (Auto) 0.5 L (1.0-4.3) K/uL [place] # (Auto) 1.0 H (0.0-0.8) K/uL Eos # (Auto) 0.0 (0.0-0.7) K/uL Baso # (Auto) 0.0 (0.0-0.2) K/uL Neutrophils % (Manual) 92 H (50-75) % Band Neutrophils % 3 H (0-2) % Lymphocytes % (Manual) 2 L (20-40) % Monocytes % (Manual) 3 (0-10) % Platelet Estimate Normal (NORMAL) Hypochromasia (manual) Moderate Poikilocytosis (manual Slight Anisocytosis (manual) Moderate Ovalocytes Moderate [place] Cells Slight Puncture Site pCO2 (35-45) mm/Hg pO2 (80-100) mm/Hg HCO3 (21-28) mmol/L ABG pH (7.35-7.45) ABG Total CO2 (22-28) mmol/L ABG O2 Saturation (95-98) % ABG Base Excess (-2.0-3.0) mmol/L Bill Test ABG Potassium (3.6-5.2) mmol/L A-a O2 Difference mm/Hg Respiratory Index Sodium (132-148) mmol/l Chloride (98-107) mmol/L Glucose (65-105) mg/dl Lactate (0.7-2.1) mmol/L Vent Mode FiO2 % Inspiratory BiPAP Expiratory BiPAP Potassium (3.6-5.2) mmol/L Carbon Dioxide (22-30) mmol/L Anion Gap (10-20) BUN (7-17) mg/dL Creatinine (0.7-1.2) mg/dL Est GFR ( Amer) Est GFR (Non-Af Amer) POC Glucose (mg/dL) 154 H 198 H (65-110) mg/dL Random Glucose (65-105) mg/dL Calcium (8.6-10.4) mg/dl Phosphorus (2.5-4.5) mg/dL Magnesium (1.6-2.3) mg/dL Total Bilirubin (0.2-1.3) mg/dL AST (14-36) U/L ALT (9-52) U/L Alkaline Phosphatase (38-126) U/L Total Protein (6.3-8.3) g/dL Albumin (3.5-5.0) g/dL Globulin (2.2-3.9) gm/dL Albumin/Globulin Ratio (1.0-2.1) Arterial Blood Potassium (3.6-5.2) mmol/L 09/12/17 09/12/17 09/11/17 Range/Units 06:13 05:09 21:25 WBC (4.8-10.8) K/uL RBC (3.80-5.20) Mil/uL Hgb (11.0-16.0) g/dL Hct (34.0-47.0) % MCV (81.0-99.0) fL MCH (27.0-31.0) pg MCHC (33.0-37.0) g/dL RDW (11.5-14.5) % Plt Count (130-400) K/uL MPV (7.2-11.7) fL Neut % (Auto) (50.0-75.0) % Lymph % (Auto) (20.0-40.0) % [place] % (Auto) (0.0-10.0) % Eos % (Auto) (0.0-4.0) % Baso % (Auto) (0.0-2.0) % Neut # (Auto) (1.8-7.0) K/uL Lymph # (Auto) (1.0-4.3) K/uL [place] # (Auto) (0.0-0.8) K/uL Eos # (Auto) (0.0-0.7) K/uL Baso # (Auto) (0.0-0.2) K/uL Neutrophils % (Manual) (50-75) % Band Neutrophils % (0-2) % Lymphocytes % (Manual) (20-40) % Monocytes % (Manual) (0-10) % Platelet Estimate (NORMAL) Hypochromasia (manual) Poikilocytosis (manual Anisocytosis (manual) Ovalocytes [place] Cells Puncture Site Rr pCO2 53 H (35-45) mm/Hg pO2 93 (80-100) mm/Hg HCO3 30.6 H (21-28) mmol/L ABG pH 7.41 (7.35-7.45) ABG Total CO2 35.2 H (22-28) mmol/L ABG O2 Saturation 98.7 H (95-98) % ABG Base Excess 7.3 H (-2.0-3.0) mmol/L Bill Test Pos ABG Potassium 3.6 (3.6-5.2) mmol/L A-a O2 Difference 197.0 mm/Hg Respiratory Index 2.1 Sodium 145 148.0 (132-148) mmol/l Chloride 105 112.0 H (98-107) mmol/L Glucose 166 H (65-105) mg/dl Lactate 0.7 (0.7-2.1) mmol/L Vent Mode Bipap FiO2 50.0 % Inspiratory BiPAP 12 Expiratory BiPAP 6 Potassium 3.7 (3.6-5.2) mmol/L Carbon Dioxide 32 H (22-30) mmol/L Anion Gap 12 (10-20) BUN 26 H (7-17) mg/dL Creatinine 0.5 L (0.7-1.2) mg/dL Est GFR ( Amer) > 60 Est GFR (Non-Af Amer) > 60 POC Glucose (mg/dL) 223 H (65-110) mg/dL Random Glucose 159 H (65-105) mg/dL Calcium 9.0 (8.6-10.4) mg/dl Phosphorus 4.4 (2.5-4.5) mg/dL Magnesium 2.0 (1.6-2.3) mg/dL Total Bilirubin 0.6 (0.2-1.3) mg/dL AST 32 (14-36) U/L ALT 64 H (9-52) U/L Alkaline Phosphatase 70 (38-126) U/L Total Protein 6.1 L (6.3-8.3) g/dL Albumin 3.1 L (3.5-5.0) g/dL Globulin 3.0 (2.2-3.9) gm/dL Albumin/Globulin Ratio 1.0 (1.0-2.1) Arterial Blood Potassium 3.6 (3.6-5.2) mmol/L Laboratory Results - last 24 hr 09/11/17 09/12/17 09/12/17 21:25 05:09 06:13 WBC RBC Hgb Hct MCV MCH MCHC RDW Plt Count MPV Neut % (Auto) Lymph % (Auto) [place] % (Auto) Eos % (Auto) Baso % (Auto) Neut # (Auto) Lymph # (Auto) [place] # (Auto) Eos # (Auto) Baso # (Auto) Neutrophils % (Manual) Band Neutrophils % Lymphocytes % (Manual) Monocytes % (Manual) Platelet Estimate Hypochromasia (manual) Poikilocytosis (manual Anisocytosis (manual) Ovalocytes [place] Cells Puncture Site Rr pCO2 53 H pO2 93 HCO3 30.6 H ABG pH 7.41 ABG Total CO2 35.2 H ABG O2 Saturation 98.7 H ABG Base Excess 7.3 H Bill Test Pos ABG Potassium 3.6 A-a O2 Difference 197.0 Respiratory Index 2.1 Sodium 148.0 145 Chloride 112.0 H 105 Glucose 166 H Lactate 0.7 Vent Mode Bipap FiO2 50.0 Inspiratory BiPAP 12 Expiratory BiPAP 6 Potassium 3.7 Carbon Dioxide 32 H Anion Gap 12 BUN 26 H Creatinine 0.5 L Est GFR ( Amer) > 60 Est GFR (Non-Af Amer) > 60 POC Glucose (mg/dL) 223 H Random Glucose 159 H Calcium 9.0 Phosphorus 4.4 Magnesium 2.0 Total Bilirubin 0.6 AST 32 ALT 64 H Alkaline Phosphatase 70 Total Protein 6.1 L Albumin 3.1 L Globulin 3.0 Albumin/Globulin Ratio 1.0 Arterial Blood Potassium 3.6 09/12/17 09/12/17 09/12/17 06:17 12:38 16:14 WBC 18.2 H RBC 4.32 Hgb 9.9 L Hct 32.8 L MCV 75.8 L MCH 22.8 L MCHC 30.1 L RDW 22.5 H Plt Count 332 MPV 9.4 Neut % (Auto) 91.8 H Lymph % (Auto) 2.8 L [place] % (Auto) 5.3 Eos % (Auto) 0.0 Baso % (Auto) 0.1 Neut # (Auto) 16.7 H Lymph # (Auto) 0.5 L [place] # (Auto) 1.0 H Eos # (Auto) 0.0 Baso # (Auto) 0.0 Neutrophils % (Manual) 92 H Band Neutrophils % 3 H Lymphocytes % (Manual) 2 L Monocytes % (Manual) 3 Platelet Estimate Normal Hypochromasia (manual) Moderate Poikilocytosis (manual Slight Anisocytosis (manual) Moderate Ovalocytes Moderate [place]anne Cells Slight Puncture Site pCO2 pO2 HCO3 ABG pH ABG Total CO2 ABG O2 Saturation ABG Base Excess Bill Test ABG Potassium A-a O2 Difference Respiratory Index Sodium Chloride Glucose Lactate Vent Mode FiO2 Inspiratory BiPAP Expiratory BiPAP Potassium Carbon Dioxide Anion Gap BUN Creatinine Est GFR ( Amer) Est GFR (Non-Af Amer) POC Glucose (mg/dL) 198 H 154 H Random Glucose Calcium Phosphorus Magnesium Total Bilirubin AST ALT Alkaline Phosphatase Total Protein Albumin Globulin Albumin/Globulin Ratio Arterial Blood Potassium Critical Care Progress Note - Nutrition Nutrition: Nutrition Category Date Time Status Diabetic [Consistent Carbohydrate] [DIET] Diets 09/11/17 Lunch Active Attending/Attestation - Attestation I have personally seen and examined this patient.: Yes I have fully participated in the care of the patient.: Yes I have reviewed all pertinent clinical information: Yes Notes (Text): 09/12/17 19:38 patient is on cannula. Comfortable. Continue the physical therapy. patient can be transferred to floor
[2017-09-12] MEDS: Albuterol-Ipratrop 3 mg / 0.5 (3 ml) UD INH SCH ×2 (13:47→20:20)
--- NOTE | 2017-09-12 16:01 | PN ---
DATE: SUBJECTIVE: The patient is improving. Continue IV antibiotics. PT evaluation. Leslie Mak MD
--- NOTE | 2017-09-12 16:52 | CP.PCM.PN ---
Subjective - Date & Time of Evaluation Date of Evaluation: 09/12/17 Time of Evaluation: 16:50 - Subjective Subjective: less sob awake no distress Objective - Vital Signs/Intake and Output Vital Signs (last 24 hours): Temp Pulse Resp BP Pulse Ox 97.3 F L 92 H 21 116/79 88 L 09/12/17 16:00 09/12/17 16:03 09/12/17 16:03 09/12/17 16:03 09/12/17 16:03 Intake and Output: 09/12/17 09/12/17 06:59 18:59 Intake Total 520 870 Output Total 660 252 Balance -140 618 - Medications Medications: Current Medications Acetaminophen (Tylenol 650mg/20.3ml Solution Ud) 650 mg PO Q4 PRN PRN Reason: for temperature >101 F Last Admin: 09/07/17 06:52 Dose: 650 mg Albuterol/Ipratropium (Duoneb 3 Mg/0.5 Mg (3 Ml) Ud) 3 ml INH RQ6 [facility] Last Admin: 09/12/17 13:47 Dose: 3 ml Aspirin (Aspirin Chewable) 81 mg PO DAILY [facility] Last Admin: 09/12/17 09:38 Dose: 81 mg Hydralazine HCl (Apresoline) 25 mg PO BID [facility] Last Admin: 09/12/17 09:41 Dose: 25 mg Meropenem 1 gm/ Sodium (Chloride) 100 mls @ 100 mls/hr IVPB Q8H [facility] Last Admin: 09/12/17 11:00 Dose: 100 mls/hr Azithromycin 500 mg/ Sodium (Chloride) 250 mls @ 250 mls/hr IVPB Q24H [facility] Last Admin: 09/11/17 18:17 Dose: 250 mls/hr Micafungin Sodium 100 mg/ (Sodium Chloride) 100 mls @ 100 mls/hr IV Q24H [facility] Last Admin: 09/11/17 20:32 Dose: 100 mls/hr Insulin Aspart (Novolog) 0 unit SC ACHS [facility] PRN Reason: Protocol Last Admin: 09/12/17 16:26 Dose: 2 unit Isosorbide Mononitrate (Imdur) 30 mg PO DAILY [facility] Last Admin: 09/12/17 09:40 Dose: 30 mg Methylprednisolone (Solu-Medrol) 40 mg IVP Q12 [facility] Metoprolol Tartrate (Lopressor) 50 mg PO BID [facility] Last Admin: 09/12/17 09:38 Dose: 50 mg Pantoprazole Sodium (Protonix Inj) 40 mg IVP DAILY [facility] Last Admin: 09/12/17 09:30 Dose: 40 mg Spironolactone (Aldactone) 25 mg PO DAILY [facility] Last Admin: 09/12/17 09:35 Dose: 25 mg Verapamil HCl (Calan Tab) 40 mg PO TID [facility] Last Admin: 09/12/17 13:09 Dose: 40 mg - Labs Labs: 09/12/17 06:17 09/12/17 06:13 PT 12.6 SECONDS (9.7-12.2) H 08/30/17 23:18 INR 1.1 08/30/17 23:18 APTT 28 SECONDS (21-34) 08/30/17 23:18 - Constitutional Appears: Non-toxic - Head Exam Head Exam: NORMAL INSPECTION - Eye Exam Eye Exam: Normal appearance Pupil Exam: NORMAL ACCOMODATION - ENT Exam ENT Exam: Mucous Membranes Moist - Neck Exam Neck Exam: Full ROM - Respiratory Exam Respiratory Exam: Decreased Breath Sounds - Cardiovascular Exam Cardiovascular Exam: REGULAR RHYTHM - GI/Abdominal Exam GI & Abdominal Exam: Normal Bowel Sounds - Extremities Exam Extremities Exam: Normal Inspection - Back Exam Back Exam: NORMAL INSPECTION - Neurological Exam Neurological Exam: Awake, Oriented x3 - Psychiatric Exam Psychiatric exam: Normal Affect - Skin Skin Exam: Pallor Assessment and Plan - Assessment and Plan (Free Text) Assessment: ac pnumonia copd dm s/p resp failiu Plan: cont as pericu
[2017-09-12] MEDS: Azithromycin 500 MG in Sodium Chloride 0.9% 250 ML IVPB SCH (17:00)
--- NOTE | 2017-09-12 18:19 | CP.PCM.PN ---
Subjective - Date & Time of Evaluation Date of Evaluation: 09/12/17 Time of Evaluation: 18:19 - Subjective Subjective: CHIEF COMPLAINTS TODAY : AFEBRILE OFF BIPAP, OOB ON CARDIAC CHAIR HOARSENESS IMPROVING COMFORTABLE . ROS. HEENT : N. Resp : NO SOB wheezing, cough Cardio : No CP, PND orthopnea GI : No abd. Pain, n/v RECOVERY ANALYST : No headache , focal deficit. Musculoskel : N Ext. : Pedal pulses intact, no edema or calf pain Derm : N Psych : N. PE. Pt. is AWAKE in no distress .EXTUBATED. V.S As noted in the chart Head ,ear nose,throat and eyes : Normal. Neck : Supple with normal carotids. Lungs: BETTER AERATION BOTH BASES. Heart : S1 & S2 REGULAR . No murmur. Abd : Soft non tender with normal bowel sounds. Neuro : Moves all ext. with no localized deficit. Ext : No edema with intact pulses. Neg. calf tenderness Derm : No rashes or decubitus ulcer. Radiology/Labs . REVIEWED. CXR ;; IMPROVED .NO OPACITY RT SIDE CHEST X-RAY RIGHT LOWER LUNG MEDIAL OPACITY ? ARTIFACTUAL urine culture+ve yeast Tracheal aspirate +ve Klebsiella pneumoniae/yeast. Objective - Vital Signs/Intake and Output Vital Signs (last 24 hours): Temp Pulse Resp BP Pulse Ox 97.3 F L 84 21 107/54 L 96 09/12/17 16:00 09/12/17 18:01 09/12/17 16:03 09/12/17 18:01 09/12/17 18:01 Intake and Output: 09/12/17 09/12/17 06:59 18:59 Intake Total 520 1500 Output Total 660 462 Balance -140 1038 - Medications Medications: Current Medications Acetaminophen (Tylenol 650mg/20.3ml Solution Ud) 650 mg PO Q4 PRN PRN Reason: for temperature >101 F Last Admin: 09/07/17 06:52 Dose: 650 mg Albuterol/Ipratropium (Duoneb 3 Mg/0.5 Mg (3 Ml) Ud) 3 ml INH RQ6 [facility] Last Admin: 09/12/17 13:47 Dose: 3 ml Aspirin (Aspirin Chewable) 81 mg PO DAILY [facility] Last Admin: 09/12/17 09:38 Dose: 81 mg Hydralazine HCl (Apresoline) 25 mg PO BID [facility] Last Admin: 09/12/17 18:18 Dose: Not Given Meropenem 1 gm/ Sodium (Chloride) 100 mls @ 100 mls/hr IVPB Q8H [facility] Last Admin: 09/12/17 11:00 Dose: 100 mls/hr Azithromycin 500 mg/ Sodium (Chloride) 250 mls @ 250 mls/hr IVPB Q24H [facility] Last Admin: 09/12/17 17:00 Dose: 250 mls/hr Micafungin Sodium 100 mg/ (Sodium Chloride) 100 mls @ 100 mls/hr IV Q24H [facility] Last Admin: 09/11/17 20:32 Dose: 100 mls/hr Insulin Aspart (Novolog) 0 unit SC ACHS [facility] PRN Reason: Protocol Last Admin: 09/12/17 16:26 Dose: 2 unit Isosorbide Mononitrate (Imdur) 30 mg PO DAILY [facility] Last Admin: 09/12/17 09:40 Dose: 30 mg Methylprednisolone (Solu-Medrol) 40 mg IVP Q12 [facility] Metoprolol Tartrate (Lopressor) 50 mg PO BID [facility] Last Admin: 09/12/17 09:38 Dose: 50 mg Pantoprazole Sodium (Protonix Inj) 40 mg IVP DAILY [facility] Last Admin: 09/12/17 09:30 Dose: 40 mg Spironolactone (Aldactone) 25 mg PO DAILY [facility] Last Admin: 09/12/17 09:35 Dose: 25 mg Verapamil HCl (Calan Tab) 40 mg PO TID [facility] Last Admin: 09/12/17 13:09 Dose: 40 mg - Labs Labs: 09/12/17 06:17 09/12/17 06:13 PT 12.6 SECONDS (9.7-12.2) H 08/30/17 23:18 INR 1.1 08/30/17 23:18 APTT 28 SECONDS (21-34) 08/30/17 23:18 Assessment and Plan (1) Respiratory failure Assessment & Plan: S/P EXTUBATION. SPUTUM POSITIVE FOR kLEBSIELLA PNEUMONIA/YEAST. ON iv ANTIBIOTICS/ANTIFUNGAL-mYCAMINE. Status: Acute (2) Fever Assessment & Plan: SOURCE OF FEVER /BRONCHOPULMONARY INFECTION CANDIDURIA . cONTINUE iv ANTIFUNGAL AND ANTIBACTERIAL. Status: Acute (3) Pneumonia Assessment & Plan: S/P RESPIRATORY FAILURE/ ? ASPIRATION Status: Acute (4) COPD exacerbation Status: Acute (5) CHF (congestive heart failure) Status: Acute (6) Severe anemia Status: Acute (7) Type II diabetes mellitus Status: Acute (8) History of bilateral mastectomy Status: Acute - Assessment and Plan (Free Text) Plan: CONTINUE iv MEROPENEM 1 G EVERY 8 HOURLY 09/07/17. DC iv ZITHROMAX 500 MG EVERY d DAILY. 09/07/17.-09/12/17 ON IV MYCAFUNGIN 100 MG iv PIGGYBACK ONCE A DAY DAILY .09/07/17. IV STEROIDS PER PULMONARY/[employer] PULMONARY TOILET.
[2017-09-12] MEDS: Micafungin 100 MG in Sodium Chloride 0.9% 100 ML IV SCH (19:56)
[2017-09-13] MEDS: Albuterol-Ipratrop 3 mg / 0.5 (3 ml) UD INH SCH ×4 (01:49→21:35)
[2017-09-13] MEDS: Meropenem 1 GM in Sodium Chloride 0.9% 100 ML IVPB SCH ×3 (03:45→18:01)
[2017-09-13 06:32] LABS: BASO % 0.1 % (0.0-2.0); HEMOGLOBIN 9.5 g/dL (11.0-16.0); LYMPH # 0.4 K/uL (1.0-4.3); LYMPH % 2.9 % (20.0-40.0); MEAN CELL VOLUME 76.1 fL (81.0-99.0); MEAN CORPUSCULAR HEMOGLOBIN 22.7 pg (27.0-31.0); MEAN CORPUSCULAR HGB CONC 29.9 g/dL (33.0-37.0); MEAN PLATELET VOLUME 9.1 fL (7.2-11.7); MONO # 1.1 K/uL (0.0-0.8); MONO % 7.8 % (0.0-10.0); NEUT # 13.1 K/uL (1.8-7.0); NEUT % 89.2 % (50.0-75.0); NRBC % 0.1 % (0.0-2.0); PLATELET COUNT 302 K/uL (130-400); RED CELL DISTRIBUTION WIDTH 22.7 % (11.5-14.5); WHITE BLOOD COUNT 14.7 K/uL (4.8-10.8)
[2017-09-13 06:41] LABS: ALB/GLOB RATIO 1.1 (1.0-2.1); ALT/SGPT 56 U/L (9-52); AST/SGOT 31 U/L (14-36); BLOOD UREA NITROGEN 24 mg/dL (7-17); CALCIUM 8.4 mg/dl (8.6-10.4); GFR AFRICAN-AMERICAN > 60; GFR NON-AFRICAN AMERICAN > 60; MAGNESIUM 1.9 mg/dL (1.6-2.3)
[2017-09-13] MEDS: (Novolog) Insulin Aspart, Recombinant 100 u/ml 10 ml vial SC SCH ×4 (08:00→21:46)
[2017-09-13 09:39] LABS: LYMPHOCYTE 3 % (20-40); MONOCYTE 7 % (0-10); NEUTROPHIL 90 % (50-75); PLATELET ESTIMATE NORMAL (NORMAL); TOTAL CELLS COUNTED 100
[2017-09-13] MEDS: MethylPREDNISolone 40 mg Vial IVP SCH ×2 (09:39→21:46)
[2017-09-13 09:41] LABS: ANISOCYTOSIS SLIGHT; BURR CELLS SLIGHT; HYPOCHROMIC SLIGHT; MICROCYTOSIS SLIGHT; OVALOCYTES SLIGHT; POIKILOCYTOSIS SLIGHT
[2017-09-13 09:44] LABS: POLYCHROMIC SLIGHT
[2017-09-13 09:45] LABS: TARGET CELLS SLIGHT; TEARDROP CELLS SLIGHT
--- NOTE | 2017-09-13 13:11 | CP.PCM.PN ---
Subjective - Date & Time of Evaluation Date of Evaluation: 09/13/17 Time of Evaluation: 13:08 - Subjective Subjective: oob in chair hoseness of voice less sob vss l Objective - Vital Signs/Intake and Output Vital Signs (last 24 hours): Temp Pulse Resp BP Pulse Ox 97.7 F 84 15 124/40 L 100 09/13/17 08:00 09/13/17 08:00 09/13/17 08:00 09/13/17 08:02 09/13/17 08:00 Intake and Output: 09/13/17 09/13/17 06:59 18:59 Intake Total 700 100 Output Total 700 70 Balance 0 30 - Medications Medications: Current Medications Acetaminophen (Tylenol 650mg/20.3ml Solution Ud) 650 mg PO Q4 PRN PRN Reason: for temperature >101 F Last Admin: 09/07/17 06:52 Dose: 650 mg Albuterol/Ipratropium (Duoneb 3 Mg/0.5 Mg (3 Ml) Ud) 3 ml INH RQ6 [facility] Last Admin: 09/13/17 07:12 Dose: 3 ml Aspirin (Aspirin Chewable) 81 mg PO DAILY [facility] Last Admin: 09/13/17 09:39 Dose: 81 mg Hydralazine HCl (Apresoline) 25 mg PO BID [facility] Last Admin: 09/13/17 09:40 Dose: 25 mg Meropenem 1 gm/ Sodium (Chloride) 100 mls @ 100 mls/hr IVPB Q8H [facility] Last Admin: 09/13/17 11:07 Dose: 100 mls/hr Micafungin Sodium 100 mg/ (Sodium Chloride) 100 mls @ 100 mls/hr IV Q24H [facility] Last Admin: 09/12/17 19:56 Dose: 100 mls/hr Insulin Aspart (Novolog) 0 unit SC ACHS [facility] PRN Reason: Protocol Last Admin: 09/13/17 11:55 Dose: Not Given Isosorbide Mononitrate (Imdur) 30 mg PO DAILY [facility] Last Admin: 09/13/17 09:40 Dose: 30 mg Methylprednisolone (Solu-Medrol) 40 mg IVP Q12 [facility] Last Admin: 09/13/17 09:39 Dose: 40 mg Metoprolol Tartrate (Lopressor) 50 mg PO BID [facility] Last Admin: 02/20/18 09:40 Dose: 50 mg Pantoprazole Sodium (Protonix Inj) 40 mg IVP DAILY [facility] Last Admin: 09/13/17 09:38 Dose: 40 mg Spironolactone (Aldactone) 25 mg PO DAILY [facility] Last Admin: 09/13/17 09:39 Dose: 25 mg Verapamil HCl (Calan Tab) 40 mg PO TID [facility] Last Admin: 09/13/17 13:06 Dose: 40 mg - Labs Labs: 09/13/17 06:17 09/13/17 06:16 PT 12.6 SECONDS (9.7-12.2) H 08/30/17 23:18 INR 1.1 08/30/17 23:18 APTT 28 SECONDS (21-34) 08/30/17 23:18 - Constitutional Appears: No Acute Distress - Head Exam Head Exam: ATRAUMATIC - Eye Exam Eye Exam: Normal appearance Pupil Exam: NORMAL ACCOMODATION - ENT Exam ENT Exam: Mucous Membranes Moist - Neck Exam Neck Exam: Full ROM - Respiratory Exam Respiratory Exam: Decreased Breath Sounds, Rales - Cardiovascular Exam Cardiovascular Exam: REGULAR RHYTHM - GI/Abdominal Exam GI & Abdominal Exam: Soft - Extremities Exam Extremities Exam: Full ROM, Normal Inspection - Back Exam Back Exam: NORMAL INSPECTION - Neurological Exam Neurological Exam: Alert, Oriented x3 - Psychiatric Exam Psychiatric exam: Normal Mood - Skin Skin Exam: Pallor Assessment and Plan - Assessment and Plan (Free Text) Assessment: ac uti s/p resp failiur s/p copd ex generalised weeeknedd aneamia Plan: cont as per icu ordrs
[2017-09-13] MEDS: Acetaminophen 650mg/20.3ml solution UD PO PRN (18:00)
--- NOTE | 2017-09-13 19:34 | CP.PCM.PN ---
Subjective - Date & Time of Evaluation Date of Evaluation: 09/13/17 Time of Evaluation: 19:34 - Subjective Subjective: CHIEF COMPLAINTS TODAY : AFEBRILE,AAO OOB ON CARDIAC CHAIR HOARSENESS IMPROVING COMFORTABLE admitting to be transferred to the floor. . ROS. HEENT : N. Resp : NO SOB wheezing, cough Cardio : No CP, PND orthopnea GI : No abd. 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 Musculoskel : N Ext. : Pedal pulses intact, no edema or calf pain Derm : N Psych : N. PE. Pt. is AWAKE in no distress .EXTUBATED. V.S As noted in the chart Head ,ear nose,throat and eyes : Normal. Neck : Supple with normal carotids. Lungs: BETTER AERATION BOTH BASES. Heart : S1 & S2 REGULAR . No murmur. Abd : Soft non tender with normal bowel sounds. Neuro : Moves all ext. with no localized deficit. Ext : No edema with intact pulses. Neg. calf tenderness Derm : No rashes or decubitus ulcer. Radiology/Labs . REVIEWED. CXR ;; IMPROVED .NO OPACITY RT SIDE CHEST X-RAY RIGHT LOWER LUNG MEDIAL OPACITY ? ARTIFACTUAL urine culture+ve yeast Tracheal aspirate +ve Klebsiella pneumoniae/yeast. Objective - Vital Signs/Intake and Output Vital Signs (last 24 hours): Temp Pulse Resp BP Pulse Ox 98.3 F 77 19 123/51 L 98 09/13/17 16:00 09/13/17 19:00 09/13/17 19:00 09/13/17 18:02 09/13/17 18:02 Intake and Output: 09/13/17 09/14/17 18:59 06:59 Intake Total 680 100 Output Total 625 30 Balance 55 70 - Medications Medications: Current Medications Acetaminophen (Tylenol 650mg/20.3ml Solution Ud) 650 mg PO Q4 PRN PRN Reason: for temperature >101 F Last Admin: 09/13/17 18:00 Dose: 650 mg Albuterol/Ipratropium (Duoneb 3 Mg/0.5 Mg (3 Ml) Ud) 3 ml INH RQ6 [facility] Last Admin: 09/13/17 14:53 Dose: Not Given Aspirin (Aspirin Chewable) 81 mg PO DAILY [facility] Last Admin: 09/13/17 09:39 Dose: 81 mg Hydralazine HCl (Apresoline) 25 mg PO BID [facility] Last Admin: 09/13/17 17:47 Dose: 25 mg Meropenem 1 gm/ Sodium (Chloride) 100 mls @ 100 mls/hr IVPB Q8H [facility] Last Admin: 09/13/17 18:01 Dose: 100 mls/hr Micafungin Sodium 100 mg/ (Sodium Chloride) 100 mls @ 100 mls/hr IV Q24H [facility] Last Admin: 09/12/17 19:56 Dose: 100 mls/hr Insulin Aspart (Novolog) 0 unit SC ACHS [facility] PRN Reason: Protocol Last Admin: 09/13/17 16:31 Dose: 2 unit Isosorbide Mononitrate (Imdur) 30 mg PO DAILY [facility] Last Admin: 09/13/17 09:40 Dose: 30 mg Methylprednisolone (Solu-Medrol) 40 mg IVP Q12 [facility] Last Admin: 09/13/17 09:39 Dose: 40 mg Metoprolol Tartrate (Lopressor) 50 mg PO BID [facility] Last Admin: 09/13/17 17:48 Dose: 50 mg Pantoprazole Sodium (Protonix Ec Tab) 40 mg PO DAILY [facility] Spironolactone (Aldactone) 25 mg PO DAILY [facility] Last Admin: 09/13/17 09:39 Dose: 25 mg Verapamil HCl (Calan Tab) 40 mg PO TID [facility] Last Admin: 09/13/17 17:47 Dose: 40 mg - Labs Labs: 09/13/17 06:17 09/13/17 06:16 PT 12.6 SECONDS (9.7-12.2) H 08/30/17 23:18 INR 1.1 08/30/17 23:18 APTT 28 SECONDS (21-34) 08/30/17 23:18 Assessment and Plan (1) Respiratory failure Assessment & Plan: S/P EXTUBATION. SPUTUM POSITIVE FOR kLEBSIELLA PNEUMONIA/YEAST. ON iv ANTIBIOTICS/ANTIFUNGAL-mYCAMINE. Status: Acute (2) Fever Assessment & Plan: SOURCE OF FEVER /BRONCHOPULMONARY INFECTION CANDIDURIA . cONTINUE iv ANTIFUNGAL AND ANTIBACTERIAL Status: Acute (3) Pneumonia Assessment & Plan: s/p extubation. Last chest x-ray no infiltrate. Status: Acute (4) COPD exacerbation Status: Acute (5) CHF (congestive heart failure) Status: Acute (6) Severe anemia Status: Acute (7) Type II diabetes mellitus Status: Acute (8) History of bilateral mastectomy Status: Acute (9) Candiduria Assessment & Plan: patient and IV Mycamine. can we dc Rico. we will speak to the fruit express agent. Status: Acute
[2017-09-13] MEDS: Micafungin 100 MG in Sodium Chloride 0.9% 100 ML IV SCH (19:50)
[2017-09-14] MEDS: Albuterol-Ipratrop 3 mg / 0.5 (3 ml) UD INH SCH ×4 (02:05→20:24)
[2017-09-14] MEDS: Meropenem 1 GM in Sodium Chloride 0.9% 100 ML IVPB SCH ×3 (02:39→18:35)
--- NOTE | 2017-09-14 07:19 | PN ---
DATE: 09/13/2017. SUBJECTIVE: The patient is improving, shortness of breath is less. Chest x-ray is improving, on O2 nasal cannula. Lungs decreased breath sounds. ASSESSMENT: 1. failure, improving. 2. Chronic obstructive pulmonary disease, improving. 3. Congestive heart failure, improving. on bronchodilator O2. Leslie Mak MD
[2017-09-14] MEDS: (Novolog) Insulin Aspart, Recombinant 100 u/ml 10 ml vial SC SCH ×4 (08:00→22:12)
[2017-09-14] MEDS: MethylPREDNISolone 40 mg Vial IVP SCH ×2 (10:53→22:13)
[2017-09-14] MEDS: Pantoprazole 40 mg EC Tab PO SCH (10:54)
--- NOTE | 2017-09-14 11:29 | CP.PCM.PN ---
Subjective - Date & Time of Evaluation Date of Evaluation: 09/14/17 Time of Evaluation: 11:26 - Subjective Subjective: seenand examined in icu feels beter less son still horseness voice Objective - Vital Signs/Intake and Output Vital Signs (last 24 hours): Temp Pulse Resp BP Pulse Ox 98.6 F 68 14 106/40 L 99 09/14/17 00:00 09/14/17 05:29 09/14/17 03:57 09/14/17 03:57 09/14/17 03:57 Intake and Output: 09/14/17 09/14/17 06:59 18:59 Intake Total 400 Output Total 630 Balance -230 - Medications Medications: Current Medications Acetaminophen (Tylenol 650mg/20.3ml Solution Ud) 650 mg PO Q4 PRN PRN Reason: for temperature >101 F Last Admin: 09/13/17 18:00 Dose: 650 mg Albuterol/Ipratropium (Duoneb 3 Mg/0.5 Mg (3 Ml) Ud) 3 ml INH RQ6 [facility] Last Admin: 09/14/17 09:36 Dose: 3 ml Aspirin (Aspirin Chewable) 81 mg PO DAILY [facility] Last Admin: 09/14/17 10:56 Dose: 81 mg Hydralazine HCl (Apresoline) 25 mg PO BID [facility] Last Admin: 09/14/17 10:56 Dose: 25 mg Meropenem 1 gm/ Sodium (Chloride) 100 mls @ 100 mls/hr IVPB Q8H [facility] Last Admin: 09/14/17 02:39 Dose: 100 mls/hr Micafungin Sodium 100 mg/ (Sodium Chloride) 100 mls @ 100 mls/hr IV Q24H [facility] Last Admin: 09/13/17 19:50 Dose: 100 mls/hr Insulin Aspart (Novolog) 0 unit SC ACHS [facility] PRN Reason: Protocol Last Admin: 09/14/17 08:00 Dose: Not Given Isosorbide Mononitrate (Imdur) 30 mg PO DAILY [facility] Last Admin: 09/13/17 09:40 Dose: 30 mg Methylprednisolone (Solu-Medrol) 40 mg IVP Q12 [facility] Last Admin: 09/14/17 10:53 Dose: 40 mg Metoprolol Tartrate (Lopressor) 50 mg PO BID [facility] Last Admin: 02/21/18 10:54 Dose: 50 mg Pantoprazole Sodium (Protonix Ec Tab) 40 mg PO DAILY [facility] Last Admin: 09/14/17 10:54 Dose: 40 mg Spironolactone (Aldactone) 25 mg PO DAILY [facility] Last Admin: 09/14/17 10:54 Dose: 25 mg Verapamil HCl (Calan Tab) 40 mg PO TID [facility] Last Admin: 09/14/17 10:55 Dose: 40 mg - Labs Labs: 09/13/17 06:17 09/13/17 06:16 PT 12.6 SECONDS (9.7-12.2) H 08/30/17 23:18 INR 1.1 08/30/17 23:18 APTT 28 SECONDS (21-34) 08/30/17 23:18 - Constitutional Appears: Non-toxic - Head Exam Head Exam: ATRAUMATIC - Eye Exam Eye Exam: Normal appearance - ENT Exam ENT Exam: Mucous Membranes Moist - Respiratory Exam Respiratory Exam: Decreased Breath Sounds - Cardiovascular Exam Cardiovascular Exam: REGULAR RHYTHM - GI/Abdominal Exam GI & Abdominal Exam: Normal Bowel Sounds - Rectal Exam Rectal Exam: NORMAL INSPECTION - Extremities Exam Extremities Exam: Normal Inspection - Back Exam Back Exam: NORMAL INSPECTION - Psychiatric Exam Psychiatric exam: Normal Affect - Skin Skin Exam: Pallor Assessment and Plan - Assessment and Plan (Free Text) Assessment: ac pnumonia s/p resp failiur copd ex aneamia Plan: cont antibiotics for bacteria and fungus infection cont as per orders
[2017-09-14 12:19] LABS: BASO % 0.3 % (0.0-2.0); EOS % 0.2 % (0.0-4.0); HEMOGLOBIN 9.8 g/dL (11.0-16.0); LYMPH # 0.6 K/uL (1.0-4.3); LYMPH % 4.4 % (20.0-40.0); MEAN CELL VOLUME 76.3 fL (81.0-99.0); MEAN CORPUSCULAR HEMOGLOBIN 23.1 pg (27.0-31.0); MEAN CORPUSCULAR HGB CONC 30.3 g/dL (33.0-37.0); MEAN PLATELET VOLUME 8.9 fL (7.2-11.7); MONO # 1.2 K/uL (0.0-0.8); MONO % 8.9 % (0.0-10.0); NEUT # 11.6 K/uL (1.8-7.0); NEUT % 86.2 % (50.0-75.0); PLATELET COUNT 308 K/uL (130-400); RBC 4.23 Mil/uL (3.80-5.20); RED CELL DISTRIBUTION WIDTH 22.7 % (11.5-14.5); WHITE BLOOD COUNT 13.5 K/uL (4.8-10.8)
[2017-09-14 12:35] LABS: ALB/GLOB RATIO 1.1 (1.0-2.1); ALBUMIN 2.9 g/dL (3.5-5.0); ALT/SGPT 40 U/L (9-52); AST/SGOT 38 U/L (14-36); BLOOD UREA NITROGEN 19 mg/dL (7-17); CALCIUM 8.6 mg/dl (8.6-10.4); GFR AFRICAN-AMERICAN > 60; GFR NON-AFRICAN AMERICAN > 60
[2017-09-14 12:46] LABS: ANISOCYTOSIS MODERATE; HYPOCHROMIC MODERATE; LYMPHOCYTE 6 % (20-40); MONOCYTE 7 % (0-10); NEUTROPHIL 87 % (50-75); OVALOCYTES MODERATE; PLATELET ESTIMATE NORMAL (NORMAL); TOTAL CELLS COUNTED 100
[2017-09-14 12:47] LABS: POLYCHROMIC SLIGHT
[2017-09-14] MEDS: Micafungin 100 MG in Sodium Chloride 0.9% 100 ML IV SCH (19:45)
--- NOTE | 2017-09-14 20:25 | CP.PCM.CON ---
History of Present Illness - History of Present Illness History of Present Illness: Vascular Surgery- Dr. Zepeda 72F w/ significant PMHx including chronic bronchitis, COPD, hx of smoking, CAD, breast Ca; admitted to [facility] for SOB, COPD exacerbation s/p extubation. Surgery was consulted for evaluation of PVD. During encounter pt is AAOx2 to person and place only. Denies pain in legs, numbness/tingling in extremities, sudden changes in vision, foot or leg wounds, nausea, vomiting, diarrhea, fevers , chills PMH: as above PSH: b/l mastectomy, CABG ALL: tape SocialHx: 40+ years of smoking. quit this July. denies etoh, recreational drug use; Lives at home, ambulates w/o assistance Review of Systems - Review of Systems All systems: reviewed and no additional remarkable complaints except - Constitutional Constitutional: As Per HPI Past Patient History - Past Medical History & Family History Past Medical History?: Yes - Past Social History Smoking Status: Never Smoked - CARDIAC Hx Congestive Heart Failure: Yes - PULMONARY Hx Chronic Obstructive Pulmonary Disease (COPD): Yes (emphysema) - NEUROLOGICAL Hx Neurological Disorder: No - HEENT Hx Cataracts: Yes - RENAL Hx Chronic Kidney Disease: No - ENDOCRINE/METABOLIC Hx Diabetes Mellitus Type 2: Yes - HEMATOLOGICAL/ONCOLOGICAL Hx Blood Disorders: No - INTEGUMENTARY Hx Dermatological Problems: No - MUSCULOSKELETAL/RHEUMATOLOGICAL Hx Falls: No - GASTROINTESTINAL Hx Gastrointestinal Disorders: No - GENITOURINARY/GYNECOLOGICAL Hx Genitourinary Disorders: No - PSYCHIATRIC Hx Anxiety: Yes Hx Substance Use: No - SURGICAL HISTORY Hx Surgeries: Yes Hx Cataract Extraction: Yes Other/Comment: R mastectomy 8 yrs ago L mastectomy 6 yrs ago - ANESTHESIA Hx Anesthesia: Yes Hx Anesthesia Reactions: No Meds Allergies/Adverse Reactions: Allergies Allergy/AdvReac Type Severity Reaction Status Date / Time adhesive tape Allergy Verified 08/30/17 21:45 latex Allergy Verified 08/30/17 21:45 - Medications Medications: Current Medications Acetaminophen (Tylenol 650mg/20.3ml Solution Ud) 650 mg PO Q4 PRN PRN Reason: for temperature >101 F Last Admin: 09/13/17 18:00 Dose: 650 mg Albuterol/Ipratropium (Duoneb 3 Mg/0.5 Mg (3 Ml) Ud) 3 ml INH RQ6 [facility] Last Admin: 09/14/17 20:24 Dose: 3 ml Aspirin (Aspirin Chewable) 81 mg PO DAILY [facility] Last Admin: 09/14/17 10:56 Dose: 81 mg Hydralazine HCl (Apresoline) 25 mg PO BID [facility] Last Admin: 09/14/17 18:36 Dose: 25 mg Meropenem 1 gm/ Sodium (Chloride) 100 mls @ 100 mls/hr IVPB Q8H [facility] Last Admin: 09/14/17 18:35 Dose: 100 mls/hr Micafungin Sodium 100 mg/ (Sodium Chloride) 100 mls @ 100 mls/hr IV Q24H [facility] Last Admin: 09/14/17 19:45 Dose: 100 mls/hr Insulin Aspart (Novolog) 0 unit SC ACHS [facility] PRN Reason: Protocol Last Admin: 09/14/17 16:56 Dose: Not Given Isosorbide Mononitrate (Imdur Er) 30 mg PO DAILY [facility] Last Admin: 09/14/17 13:27 Dose: 30 mg Methylprednisolone (Solu-Medrol) 40 mg IVP Q12 [facility] Last Admin: 09/14/17 10:53 Dose: 40 mg Metoprolol Tartrate (Lopressor) 50 mg PO BID [facility] Last Admin: 09/14/17 19:00 Dose: 50 mg Pantoprazole Sodium (Protonix Ec Tab) 40 mg PO DAILY [facility] Last Admin: 09/14/17 10:54 Dose: 40 mg Spironolactone (Aldactone) 25 mg PO DAILY [facility] Last Admin: 09/14/17 10:54 Dose: 25 mg Verapamil HCl (Calan Tab) 40 mg PO TID [facility] Last Admin: 09/14/17 18:36 Dose: 40 mg Physical Exam - Constitutional Appears: Non-toxic, No Acute Distress - Head Exam Head Exam: ATRAUMATIC - Eye Exam Eye Exam: EOMI. absent: Scleral icterus - Respiratory Exam Respiratory Exam: NORMAL BREATHING PATTERN. absent: Accessory Muscle Use, Respiratory Distress - Cardiovascular Exam Cardiovascular Exam: +S1, +S2. absent: Bradycardia, Tachycardia - GI/Abdominal Exam GI & Abdominal Exam: Normal Bowel Sounds, Soft. absent: Rebound, Rigid, Tenderness - Extremities Exam Additional comments: +2 popliteal and dorsalis pedis pulses b/L - Neurological Exam Neurological exam: Alert, Oriented x3 - Skin Skin Exam: Intact, Warm Results - Vital Signs Recent Vital Signs: Last Vital Signs Temp 100.5 F H 09/14/17 12:00 Pulse 68 09/14/17 05:29 Resp 14 09/14/17 03:57 BP 106/40 L 09/14/17 03:57 Pulse Ox 99 09/14/17 03:57 - Labs Result Diagrams: 09/14/17 12:15 09/14/17 12:15 Labs: Laboratory Results - last 24 hr 09/13/17 09/14/17 09/14/17 21:27 07:34 11:05 WBC RBC Hgb Hct MCV MCH MCHC RDW Plt Count MPV Neut % (Auto) Lymph % (Auto) [place] % (Auto) Eos % (Auto) Baso % (Auto) Neut # (Auto) Lymph # (Auto) [place] # (Auto) Eos # (Auto) Baso # (Auto) Neutrophils % (Manual) Lymphocytes % (Manual) Monocytes % (Manual) Platelet Estimate Polychromasia Hypochromasia (manual) Anisocytosis (manual) Ovalocytes Sodium Potassium Chloride Carbon Dioxide Anion Gap BUN Creatinine Est GFR ( Amer) Est GFR (Non-Af Amer) POC Glucose (mg/dL) 90 100 120 H Random Glucose Calcium Total Bilirubin AST ALT Alkaline Phosphatase Total Protein Albumin Globulin Albumin/Globulin Ratio 09/14/17 09/14/17 09/14/17 12:15 12:15 16:13 WBC 13.5 H RBC 4.23 Hgb 9.8 L Hct 32.3 L MCV 76.3 L MCH 23.1 L MCHC 30.3 L RDW 22.7 H Plt Count 308 MPV 8.9 Neut % (Auto) 86.2 H Lymph % (Auto) 4.4 L [place] % (Auto) 8.9 Eos % (Auto) 0.2 Baso % (Auto) 0.3 Neut # (Auto) 11.6 H Lymph # (Auto) 0.6 L [place] # (Auto) 1.2 H Eos # (Auto) 0.0 Baso # (Auto) 0.0 Neutrophils % (Manual) 87 H Lymphocytes % (Manual) 6 L Monocytes % (Manual) 7 Platelet Estimate Normal Polychromasia Slight Hypochromasia (manual) Moderate Anisocytosis (manual) Moderate Ovalocytes Moderate Sodium 140 Potassium 3.5 L Chloride 100 Carbon Dioxide 34 H Anion Gap 9 L BUN 19 H Creatinine 0.5 L Est GFR ( Amer) > 60 Est GFR (Non-Af Amer) > 60 POC Glucose (mg/dL) 117 H Random Glucose 131 H Calcium 8.6 Total Bilirubin 0.5 AST 38 H D ALT 40 Alkaline Phosphatase 67 Total Protein 5.6 L Albumin 2.9 L Globulin 2.7 Albumin/Globulin Ratio 1.1 Assessment & Plan - Assessment and Plan (Free Text) Assessment: 72F admitted for COPD exacerbation s/p extubation; being evaluated for PVD Plan: - f/u final read for PVR; further intervention pending results - plan for CTA - ambulate PRN - pain control PRN - GI/DVT ppx - monitor pulses - discussed w/ Dr. Zepeda surgical attending PGY1
--- NOTE | 2017-09-14 23:12 | CP.PCM.PN ---
Subjective - Date & Time of Evaluation Date of Evaluation: 09/14/17 Time of Evaluation: 23:12 - Subjective Subjective: CHIEF COMPLAINTS TODAY : AFEBRILE,AAO HOARSENESS IMPROVING COMFORTABLE RN REPORT PTS LT FOOT TOES SLIGHTLY BLUISH ? ATHEROEMBOLI VS ISCHEMIC . ROS. HEENT : N. Resp : NO SOB wheezing, cough Cardio : No CP, PND orthopnea GI : No abd. Pain, n/v GERIATRIC PSYCHIATRIST : No headache , focal deficit. Musculoskel : N Ext. : Pedal pulses WEAK LT. SIDE, no edema or calf pain Derm : N Psych : N. PE. Pt. is AWAKE in no distress .EXTUBATED. V.S As noted in the chart Head ,ear nose,throat and eyes : Normal. Neck : Supple with normal carotids. Lungs: BETTER AERATION BOTH BASES. Heart : S1 & S2 REGULAR . No murmur. Abd : Soft non tender with normal bowel sounds. Neuro : Moves all ext. with no localized deficit. Ext : No edema with intact pulses. Neg. calf tenderness Pedal pulses WEAK LT. SIDE, no edema or calf pain .TOES BLUISH Derm : No rashes or decubitus ulcer. Radiology/Labs . REVIEWED. CXR ;; IMPROVED .NO OPACITY RT SIDE CHEST X-RAY RIGHT LOWER LUNG MEDIAL OPACITY ? ARTIFACTUAL urine culture+ve yeast Tracheal aspirate +ve Klebsiella pneumoniae/yeast. Objective - Vital Signs/Intake and Output Vital Signs (last 24 hours): Temp Pulse Resp BP Pulse Ox 98.4 F 78 16 119/59 L 97 09/14/17 20:00 09/14/17 20:00 09/14/17 20:00 09/14/17 20:00 09/14/17 20:00 Intake and Output: 09/14/17 09/15/17 18:59 06:59 Intake Total 500 Output Total 300 Balance 200 - Medications Medications: Current Medications Acetaminophen (Tylenol 650mg/20.3ml Solution Ud) 650 mg PO Q4 PRN PRN Reason: for temperature >101 F Last Admin: 09/13/17 18:00 Dose: 650 mg Albuterol/Ipratropium (Duoneb 3 Mg/0.5 Mg (3 Ml) Ud) 3 ml INH RQ6 [facility] Last Admin: 09/14/17 20:24 Dose: 3 ml Aspirin (Aspirin Chewable) 81 mg PO DAILY [facility] Last Admin: 09/14/17 10:56 Dose: 81 mg Hydralazine HCl (Apresoline) 25 mg PO BID [facility] Last Admin: 09/14/17 18:36 Dose: 25 mg Meropenem 1 gm/ Sodium (Chloride) 100 mls @ 100 mls/hr IVPB Q8H [facility] Last Admin: 09/14/17 18:35 Dose: 100 mls/hr Micafungin Sodium 100 mg/ (Sodium Chloride) 100 mls @ 100 mls/hr IV Q24H [facility] Last Admin: 09/14/17 19:45 Dose: 100 mls/hr Insulin Aspart (Novolog) 0 unit SC ACHS [facility] PRN Reason: Protocol Last Admin: 09/14/17 22:12 Dose: Not Given Isosorbide Mononitrate (Imdur Er) 30 mg PO DAILY [facility] Last Admin: 09/14/17 13:27 Dose: 30 mg Methylprednisolone (Solu-Medrol) 40 mg IVP Q12 [facility] Last Admin: 09/14/17 22:13 Dose: 40 mg Metoprolol Tartrate (Lopressor) 50 mg PO BID [facility] Last Admin: 09/14/17 19:00 Dose: 50 mg Pantoprazole Sodium (Protonix Ec Tab) 40 mg PO DAILY [facility] Last Admin: 09/14/17 10:54 Dose: 40 mg Spironolactone (Aldactone) 25 mg PO DAILY [facility] Last Admin: 09/14/17 10:54 Dose: 25 mg Verapamil HCl (Calan Tab) 40 mg PO TID [facility] Last Admin: 09/14/17 18:36 Dose: 40 mg - Labs Labs: 09/14/17 12:15 09/14/17 12:15 PT 12.6 SECONDS (9.7-12.2) H 08/30/17 23:18 INR 1.1 08/30/17 23:18 APTT 28 SECONDS (21-34) 08/30/17 23:18 Assessment and Plan (1) Respiratory failure Assessment & Plan: S/P EXTUBATION. SPUTUM POSITIVE FOR kLEBSIELLA PNEUMONIA/YEAST. ON iv ANTIBIOTICS/ANTIFUNGAL-mYCAMINE. Status: Acute (2) Fever Status: Acute (3) Pneumonia Assessment & Plan: S/P RESOLUTION OF INFILTRATE. Status: Acute (4) COPD exacerbation Status: Acute (5) CHF (congestive heart failure) Status: Acute (6) Severe anemia Status: Acute (7) Type II diabetes mellitus Status: Acute (8) History of bilateral mastectomy Status: Acute (9) Candiduria Status: Acute (10) PVD (peripheral vascular disease) Assessment & Plan: LOWER EXTREMITY ULTRASOUND IN PROGRES-REPORT PENDING pATIENT SEEN BY VASCULAR SURGERY. VASCULAR WORKUP IN PROGRESS Status: Acute
[2017-09-15] MEDS: Albuterol-Ipratrop 3 mg / 0.5 (3 ml) UD INH SCH ×4 (02:32→20:33)
[2017-09-15] MEDS: Meropenem 1 GM in Sodium Chloride 0.9% 100 ML IVPB SCH ×3 (03:15→18:32)
[2017-09-15] MEDS: (Novolog) Insulin Aspart, Recombinant 100 u/ml 10 ml vial SC SCH ×4 (07:43→22:00)
[2017-09-15] MEDS: MethylPREDNISolone 40 mg Vial IVP SCH ×2 (10:17→21:54)
[2017-09-15] MEDS: Pantoprazole 40 mg EC Tab PO SCH (10:18)
--- NOTE | 2017-09-15 11:00 | CP.PCM.PN ---
Subjective - Date & Time of Evaluation Date of Evaluation: 09/15/17 Time of Evaluation: 07:30 - Subjective Subjective: Vascular Surgery Pt S&E, No complaints at this time. Objective - Vital Signs/Intake and Output Vital Signs (last 24 hours): Temp Pulse Resp BP Pulse Ox 98.2 F 78 20 96/66 L 96 09/15/17 04:00 09/15/17 04:00 09/15/17 04:00 09/15/17 04:00 09/15/17 04:00 Intake and Output: 09/15/17 09/15/17 06:59 18:59 Intake Total 340 Balance 340 - Medications Medications: Current Medications Acetaminophen (Tylenol 650mg/20.3ml Solution Ud) 650 mg PO Q4 PRN PRN Reason: for temperature >101 F Last Admin: 09/13/17 18:00 Dose: 650 mg Albuterol/Ipratropium (Duoneb 3 Mg/0.5 Mg (3 Ml) Ud) 3 ml INH RQ6 [facility] Last Admin: 09/15/17 07:47 Dose: 3 ml Aspirin (Aspirin Chewable) 81 mg PO DAILY [facility] Last Admin: 09/15/17 10:17 Dose: 81 mg Hydralazine HCl (Apresoline) 25 mg PO BID [facility] Last Admin: 09/15/17 10:17 Dose: 25 mg Meropenem 1 gm/ Sodium (Chloride) 100 mls @ 100 mls/hr IVPB Q8H [facility] Last Admin: 09/15/17 10:17 Dose: 100 mls/hr Micafungin Sodium 100 mg/ (Sodium Chloride) 100 mls @ 100 mls/hr IV Q24H [facility] Last Admin: 09/14/17 19:45 Dose: 100 mls/hr Insulin Aspart (Novolog) 0 unit SC ACHS [facility] PRN Reason: Protocol Last Admin: 09/15/17 07:43 Dose: Not Given Isosorbide Mononitrate (Imdur Er) 30 mg PO DAILY [facility] Last Admin: 09/15/17 10:18 Dose: 30 mg Methylprednisolone (Solu-Medrol) 40 mg IVP Q12 [facility] Last Admin: 09/15/17 10:17 Dose: 40 mg Metoprolol Tartrate (Lopressor) 50 mg PO BID [facility] Last Admin: 09/15/17 10:18 Dose: 50 mg Pantoprazole Sodium (Protonix Ec Tab) 40 mg PO DAILY [facility] Last Admin: 09/15/17 10:18 Dose: 40 mg Spironolactone (Aldactone) 25 mg PO DAILY [facility] Last Admin: 09/15/17 10:18 Dose: 25 mg Verapamil HCl (Calan Tab) 40 mg PO TID [facility] Last Admin: 09/15/17 10:17 Dose: 40 mg - Labs Labs: 09/14/17 12:15 09/14/17 12:15 PT 12.6 SECONDS (9.7-12.2) H 08/30/17 23:18 INR 1.1 08/30/17 23:18 APTT 28 SECONDS (21-34) 08/30/17 23:18 - Constitutional Appears: Non-toxic, No Acute Distress - Head Exam Head Exam: ATRAUMATIC, NORMOCEPHALIC - Eye Exam Eye Exam: EOMI. absent: Scleral icterus - Respiratory Exam Respiratory Exam: NORMAL BREATHING PATTERN. absent: Respiratory Distress - GI/Abdominal Exam GI & Abdominal Exam: Soft. absent: Distended, Tenderness - Extremities Exam Additional comments: LLE with well healed scars from prior surgery Palpable Right popliteal pulses non-palpable PT or DP pulses bilateral - Neurological Exam Neurological Exam: Alert, Awake - Skin Skin Exam: Dry, Warm Assessment and Plan - Assessment and Plan (Free Text) Assessment: 72F admitted for COPD exacerbation, s/p extubation; being evaluated for PVD Plan: KAREN 0.7 on R 1.08 on L CTA with Ileofem runoff, F/U results D/W Dr. Katelyn Gan PGY4
--- NOTE | 2017-09-15 13:06 | CP.PCM.PN ---
Subjective - Date & Time of Evaluation Date of Evaluation: 09/15/17 Time of Evaluation: 13:04 - Subjective Subjective: dopplers reviewed and show diminished pulse wave tracings . when condition more stable needs cta pattern consistent with multi level occlusive disease Objective - Vital Signs/Intake and Output Vital Signs (last 24 hours): Temp Pulse Resp BP Pulse Ox 98.2 F 78 20 96/66 L 96 09/15/17 04:00 09/15/17 04:00 09/15/17 04:00 09/15/17 04:00 09/15/17 04:00 Intake and Output: 09/15/17 09/15/17 06:59 18:59 Intake Total 340 Balance 340 - Medications Medications: Current Medications Acetaminophen (Tylenol 650mg/20.3ml Solution Ud) 650 mg PO Q4 PRN PRN Reason: for temperature >101 F Last Admin: 09/13/17 18:00 Dose: 650 mg Albuterol/Ipratropium (Duoneb 3 Mg/0.5 Mg (3 Ml) Ud) 3 ml INH RQ6 [facility] Last Admin: 09/15/17 07:47 Dose: 3 ml Aspirin (Aspirin Chewable) 81 mg PO DAILY [facility] Last Admin: 09/15/17 10:17 Dose: 81 mg Hydralazine HCl (Apresoline) 25 mg PO BID [facility] Last Admin: 09/15/17 10:17 Dose: 25 mg Meropenem 1 gm/ Sodium (Chloride) 100 mls @ 100 mls/hr IVPB Q8H [facility] Last Admin: 09/15/17 10:17 Dose: 100 mls/hr Micafungin Sodium 100 mg/ (Sodium Chloride) 100 mls @ 100 mls/hr IV Q24H [facility] Last Admin: 09/14/17 19:45 Dose: 100 mls/hr Insulin Aspart (Novolog) 0 unit SC ACHS [facility] PRN Reason: Protocol Last Admin: 09/15/17 12:05 Dose: Not Given Isosorbide Mononitrate (Imdur Er) 30 mg PO DAILY [facility] Last Admin: 09/15/17 10:18 Dose: 30 mg Methylprednisolone (Solu-Medrol) 40 mg IVP Q12 [facility] Last Admin: 09/15/17 10:17 Dose: 40 mg Metoprolol Tartrate (Lopressor) 50 mg PO BID [facility] Last Admin: 09/15/17 10:18 Dose: 50 mg Pantoprazole Sodium (Protonix Ec Tab) 40 mg PO DAILY [facility] Last Admin: 09/15/17 10:18 Dose: 40 mg Spironolactone (Aldactone) 25 mg PO DAILY [facility] Last Admin: 09/15/17 10:18 Dose: 25 mg Verapamil HCl (Calan Tab) 40 mg PO TID [facility] Last Admin: 09/15/17 10:17 Dose: 40 mg - Labs Labs: 09/14/17 12:15 09/14/17 12:15 PT 12.6 SECONDS (9.7-12.2) H 08/30/17 23:18 INR 1.1 08/30/17 23:18 APTT 28 SECONDS (21-34) 08/30/17 23:18
--- NOTE | 2017-09-15 15:44 | VASCLAB ---
STUDY DESCRIPTION: HISTORY: blusih discoloration of left toes PRIORS: None. TECHNIQUE: Pulse volume recording waveforms and segmental pressures of bilateral lower extremities at multiple levels were obtained. Ankle Brachial Indices (ABIs) were calculated. Report prepared by NESHA Travis, RVT RIGHT LOWER EXTREMITY: * Brachial artery: Pressure - 107 mmHg. * High thigh: Pressure - mmHg: Ratio - : PVR waveform - * Low thigh: Pressure - mmHg: Ratio - PVR waveform: Reduced * Calf: Pressure - 59 mmHg: Ratio - PVR waveform: Reduced * Posterior tibial Artery: Pressure - mmHg: Ratio - PVR waveform: Reduced * Dorsalis pedis Artery: Pressure - 77 mmHg: Ratio - PVR waveform: Reduced * Great toe: Pressure - mmHg: Ratio - PVR waveform: Ankle brachial index (KAREN): 0.72 LEFT LOWER EXTREMITY: * Brachial artery: Pressure - mmHg. * High thigh: Pressure - mmHg: Ratio - : PVR waveform - Pulsatile * Low thigh: Pressure - mmHg: Ratio - PVR waveform: Pulsatile * Calf: Pressure - 106 mmHg: Ratio - 0.99 PVR waveform: Pulsatile * Posterior tibial Artery: Pressure - mmHg: Ratio - PVR waveform: Pulsatile * Dorsalis pedis Artery: Pressure - 116 mmHg: Ratio - 1.08 PVR waveform: Pulsatile * Great toe: Pressure - mmHg: Ratio - PVR waveform: Pulsatile Ankle brachial index (KAREN): 1.08 OTHER FINDINGS: Right: Left: IMPRESSION: Right: This exam reveals moderately decreased perfusion of the right lower extremity. However, pulse volume recording waveforms are suggestive of multilevel arterial disease noted from iliac to distal small artery level. Left: Normal ankle brachial index. However, pulse volume recording waveforms are suggestive of multilevel arterial disease noted from iliac to distal small artery level.
[2017-09-15] MEDS ORDERED: Iodixanol 320 mg/ml 150 ml Bottle IV ONE (16:22)
--- NOTE | 2017-09-15 17:15 | CP.PCM.PN ---
Subjective - Date & Time of Evaluation Date of Evaluation: 09/15/17 Time of Evaluation: 17:10 - Subjective Subjective: pt remains extubated. Fatigued, responsive. lying near flat comfortably. Objective - Vital Signs/Intake and Output Vital Signs (last 24 hours): Temp Pulse Resp BP Pulse Ox 98.2 F 84 16 120/69 96 09/15/17 04:00 09/15/17 16:20 09/15/17 16:20 09/15/17 16:20 09/15/17 16:20 Intake and Output: 09/15/17 09/15/17 06:59 18:59 Intake Total 340 Balance 340 - Medications Medications: Current Medications Acetaminophen (Tylenol 650mg/20.3ml Solution Ud) 650 mg PO Q4 PRN PRN Reason: for temperature >101 F Last Admin: 09/13/17 18:00 Dose: 650 mg Albuterol/Ipratropium (Duoneb 3 Mg/0.5 Mg (3 Ml) Ud) 3 ml INH RQ6 [facility] Last Admin: 09/15/17 13:31 Dose: 3 ml Aspirin (Aspirin Chewable) 81 mg PO DAILY [facility] Last Admin: 09/15/17 10:17 Dose: 81 mg Hydralazine HCl (Apresoline) 25 mg PO BID [facility] Last Admin: 09/15/17 10:17 Dose: 25 mg Meropenem 1 gm/ Sodium (Chloride) 100 mls @ 100 mls/hr IVPB Q8H [facility] Last Admin: 09/15/17 10:17 Dose: 100 mls/hr Micafungin Sodium 100 mg/ (Sodium Chloride) 100 mls @ 100 mls/hr IV Q24H [facility] Last Admin: 09/14/17 19:45 Dose: 100 mls/hr Insulin Aspart (Novolog) 0 unit SC ACHS [facility] PRN Reason: Protocol Last Admin: 09/15/17 16:39 Dose: Not Given Isosorbide Mononitrate (Imdur Er) 30 mg PO DAILY [facility] Last Admin: 09/15/17 10:18 Dose: 30 mg Methylprednisolone (Solu-Medrol) 40 mg IVP Q12 [facility] Last Admin: 09/15/17 10:17 Dose: 40 mg Metoprolol Tartrate (Lopressor) 50 mg PO BID [facility] Last Admin: 09/15/17 10:18 Dose: 50 mg Pantoprazole Sodium (Protonix Ec Tab) 40 mg PO DAILY [facility] Last Admin: 09/15/17 10:18 Dose: 40 mg Spironolactone (Aldactone) 25 mg PO DAILY [facility] Last Admin: 09/15/17 10:18 Dose: 25 mg Verapamil HCl (Calan Tab) 40 mg PO TID [facility] Last Admin: 09/15/17 10:17 Dose: 40 mg - Labs Labs: 09/14/17 12:15 09/14/17 12:15 PT 12.6 SECONDS (9.7-12.2) H 08/30/17 23:18 INR 1.1 08/30/17 23:18 APTT 28 SECONDS (21-34) 08/30/17 23:18 - Constitutional Appears: Cachectic, Chronically Ill - Head Exam Head Exam: ATRAUMATIC - Eye Exam Eye Exam: EOMI - ENT Exam ENT Exam: Mucous Membranes Moist - Neck Exam Neck Exam: Full ROM - Respiratory Exam Respiratory Exam: NORMAL BREATHING PATTERN (pt has slight rhonchi) - Cardiovascular Exam Cardiovascular Exam: REGULAR RHYTHM - GI/Abdominal Exam GI & Abdominal Exam: Normal Bowel Sounds - Exam External exam: NORMAL EXTERNAL EXAM - Extremities Exam Extremities Exam: Normal Inspection - Back Exam Back Exam: NORMAL INSPECTION - Neurological Exam Neurological Exam: Alert, Awake, Oriented x3 - Psychiatric Exam Psychiatric exam: Flat Affect - Skin Skin Exam: Pallor Assessment and Plan - Assessment and Plan (Free Text) Assessment: 1. No recurrent svt. 2. Severe cardiomyopathy. pt has been on beta hector and aldactone, and cxr is clear. As sodium was high, TIGIST/ARB was avoided. Now that na is normal, will stop hydralazine and start arb. Cr and Na level should be followed closely. 3. On 09/10/2017, calan wa added for HTN. In the setting of reduced heart function, tigist/arb or increased dose of beta hector is preferred. If a calcium channel hector is required, then amlodipine is prefered as it has no significant inotropic effects.
--- NOTE | 2017-09-15 18:05 | CP.PCM.PN ---
Subjective - Date & Time of Evaluation Date of Evaluation: 09/15/17 Time of Evaluation: 18:05 - Subjective Subjective: CHIEF COMPLAINTS TODAY : AFEBRILE, no new complaints.. Vascular surgery follow-up noted . Doppler studies-seen. Consistent with multilevel occlusive disease as per vascular surgery. ROS. HEENT : N. Resp : NO SOB wheezing, cough Cardio : No CP, PND orthopnea GI : No abd. 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 Musculoskel : N Ext. : Pedal pulses WEAK LT. SIDE, no edema or calf pain Derm : N Psych : N. PE. Pt. is AWAKE in no distress .EXTUBATED. V.S As noted in the chart Head ,ear nose,throat and eyes : Normal. Neck : Supple with normal carotids. Lungs: BETTER AERATION BOTH BASES. Heart : S1 & S2 REGULAR . No murmur. Abd : Soft non tender with normal bowel sounds. Neuro : Moves all ext. with no localized deficit. Ext : No edema with intact pulses. Neg. calf tenderness Pedal pulses WEAK LT. SIDE, no edema or calf pain .TOES BLUISH Derm : No rashes or decubitus ulcer. Radiology/Labs . REVIEWED. CXR ;; IMPROVED .NO OPACITY RT SIDE CHEST X-RAY RIGHT LOWER LUNG MEDIAL OPACITY ? ARTIFACTUAL urine culture+ve yeast Tracheal aspirate +ve Klebsiella pneumoniae/yeast. Objective - Vital Signs/Intake and Output Vital Signs (last 24 hours): Temp Pulse Resp BP Pulse Ox 98.2 F 90 15 100/67 94 L 09/15/17 04:00 09/15/17 17:00 09/15/17 17:00 09/15/17 16:59 09/15/17 17:00 Intake and Output: 09/15/17 09/15/17 06:59 18:59 Intake Total 340 Balance 340 - Medications Medications: Current Medications Acetaminophen (Tylenol 650mg/20.3ml Solution Ud) 650 mg PO Q4 PRN PRN Reason: for temperature >101 F Last Admin: 09/13/17 18:00 Dose: 650 mg Albuterol/Ipratropium (Duoneb 3 Mg/0.5 Mg (3 Ml) Ud) 3 ml INH RQ6 [facility] Last Admin: 09/15/17 13:31 Dose: 3 ml Aspirin (Aspirin Chewable) 81 mg PO DAILY [facility] Last Admin: 09/15/17 10:17 Dose: 81 mg Meropenem 1 gm/ Sodium (Chloride) 100 mls @ 100 mls/hr IVPB Q8H [facility] Last Admin: 09/15/17 10:17 Dose: 100 mls/hr Micafungin Sodium 100 mg/ (Sodium Chloride) 100 mls @ 100 mls/hr IV Q24H [facility] Last Admin: 09/14/17 19:45 Dose: 100 mls/hr Insulin Aspart (Novolog) 0 unit SC ACHS [facility] PRN Reason: Protocol Last Admin: 09/15/17 16:39 Dose: Not Given Losartan Potassium (Cozaar) 50 mg PO DAILY [facility] Methylprednisolone (Solu-Medrol) 40 mg IVP Q12 [facility] Last Admin: 09/15/17 10:17 Dose: 40 mg Metoprolol Tartrate (Lopressor) 50 mg PO BID [facility] Last Admin: 09/15/17 10:18 Dose: 50 mg Pantoprazole Sodium (Protonix Ec Tab) 40 mg PO DAILY [facility] Last Admin: 09/15/17 10:18 Dose: 40 mg Spironolactone (Aldactone) 25 mg PO DAILY [facility] Last Admin: 09/15/17 10:18 Dose: 25 mg - Labs Labs: 09/14/17 12:15 09/14/17 12:15 PT 12.6 SECONDS (9.7-12.2) H 08/30/17 23:18 INR 1.1 08/30/17 23:18 APTT 28 SECONDS (21-34) 08/30/17 23:18 Assessment and Plan (1) Respiratory failure Assessment & Plan: S/P EXTUBATION. SPUTUM POSITIVE FOR kLEBSIELLA PNEUMONIA/YEAST. ON iv ANTIBIOTICS/ANTIFUNGAL-mYCAMINE. Status: Acute (2) Fever Status: Acute (3) Pneumonia Status: Acute (4) COPD exacerbation Status: Acute (5) CHF (congestive heart failure) Status: Acute (6) Severe anemia Status: Acute (7) Type II diabetes mellitus Status: Acute (8) History of bilateral mastectomy Status: Acute (9) Candiduria Assessment & Plan: patient on IV Mycamine for candiduria. Follow-up UA and urine culture. Status: Acute (10) PVD (peripheral vascular disease) Assessment & Plan: vascular workup once more stable as per DR DURÁN. Status: Acute
[2017-09-15] MEDS: Micafungin 100 MG in Sodium Chloride 0.9% 100 ML IV SCH (20:00)
[2017-09-16] MEDS: Albuterol-Ipratrop 3 mg / 0.5 (3 ml) UD INH SCH ×4 (01:58→20:03)
[2017-09-16] MEDS: Meropenem 1 GM in Sodium Chloride 0.9% 100 ML IVPB SCH ×3 (03:00→19:03)
[2017-09-16 06:50] LABS: ALB/GLOB RATIO 1.1 (1.0-2.1); ALBUMIN 3.2 g/dL (3.5-5.0); ALT/SGPT 43 U/L (9-52); AST/SGOT 27 U/L (14-36); BLOOD UREA NITROGEN 16 mg/dL (7-17); CALCIUM 8.7 mg/dl (8.6-10.4); GFR AFRICAN-AMERICAN > 60; GFR NON-AFRICAN AMERICAN > 60
--- NOTE | 2017-09-16 06:54 | PN ---
DATE: 09/15/2017. SUBJECTIVE: The patient is improving, supportive care, continue treatment. Leslie Mak MD
[2017-09-16 07:17] LABS: BASO # 0.1 K/uL (0.0-0.2); BASO % 0.6 % (0.0-2.0); EOS % 0.1 % (0.0-4.0); HEMOGLOBIN 10.7 g/dL (11.0-16.0); LYMPH # 0.3 K/uL (1.0-4.3); LYMPH % 2.1 % (20.0-40.0); MEAN CELL VOLUME 76.1 fL (81.0-99.0); MEAN CORPUSCULAR HEMOGLOBIN 23.2 pg (27.0-31.0); MEAN CORPUSCULAR HGB CONC 30.5 g/dL (33.0-37.0); MEAN PLATELET VOLUME 9.3 fL (7.2-11.7); MONO # 0.4 K/uL (0.0-0.8); MONO % 2.6 % (0.0-10.0); NEUT % 94.6 % (50.0-75.0); PLATELET COUNT 291 K/uL (130-400); RBC 4.64 Mil/uL (3.80-5.20); WHITE BLOOD COUNT 14.8 K/uL (4.8-10.8)
--- NOTE | 2017-09-16 08:27 | CP.PCM.PN ---
Subjective - Date & Time of Evaluation Date of Evaluation: 09/16/17 Time of Evaluation: 08:26 - Subjective Subjective: angio reviewed can be stented primarily aortic and iliac disease Objective - Vital Signs/Intake and Output Vital Signs (last 24 hours): Temp Pulse Resp BP Pulse Ox 97.8 F 79 17 136/67 92 L 09/16/17 04:00 09/16/17 07:00 09/16/17 07:00 09/16/17 05:59 09/16/17 07:00 Intake and Output: 09/16/17 09/16/17 06:59 18:59 Intake Total 680 Balance 680 - Medications Medications: Current Medications Acetaminophen (Tylenol 650mg/20.3ml Solution Ud) 650 mg PO Q4 PRN PRN Reason: for temperature >101 F Last Admin: 09/13/17 18:00 Dose: 650 mg Albuterol/Ipratropium (Duoneb 3 Mg/0.5 Mg (3 Ml) Ud) 3 ml INH RQ6 [facility] Last Admin: 09/16/17 07:26 Dose: 3 ml Aspirin (Aspirin Chewable) 81 mg PO DAILY [facility] Last Admin: 09/15/17 10:17 Dose: 81 mg Meropenem 1 gm/ Sodium (Chloride) 100 mls @ 100 mls/hr IVPB Q8H [facility] Last Admin: 09/16/17 03:00 Dose: 100 mls/hr Micafungin Sodium 100 mg/ (Sodium Chloride) 100 mls @ 100 mls/hr IV Q24H [facility] Last Admin: 09/15/17 20:00 Dose: 100 mls/hr Insulin Aspart (Novolog) 0 unit SC ACHS [facility] PRN Reason: Protocol Last Admin: 09/15/17 22:00 Dose: Not Given Losartan Potassium (Cozaar) 50 mg PO DAILY [facility] Methylprednisolone (Solu-Medrol) 40 mg IVP Q12 [facility] Last Admin: 09/15/17 21:54 Dose: 40 mg Metoprolol Tartrate (Lopressor) 50 mg PO BID [facility] Last Admin: 09/15/17 18:32 Dose: 50 mg Pantoprazole Sodium (Protonix Ec Tab) 40 mg PO DAILY [facility] Last Admin: 09/15/17 10:18 Dose: 40 mg Spironolactone (Aldactone) 25 mg PO DAILY [facility] Last Admin: 09/15/17 10:18 Dose: 25 mg - Labs Labs: 09/16/17 06:24 09/16/17 06:24 PT 12.6 SECONDS (9.7-12.2) H 08/30/17 23:18 INR 1.1 08/30/17 23:18 APTT 28 SECONDS (21-34) 08/30/17 23:18
[2017-09-16 09:35] LABS: ANISOCYTOSIS MODERATE; HYPOCHROMIC SLIGHT; LYMPHOCYTE 2 % (20-40); MONOCYTE 1 % (0-10); NEUTROPHIL 97 % (50-75); PLATELET ESTIMATE NORMAL (NORMAL); TOTAL CELLS COUNTED 100
[2017-09-16 09:36] LABS: MICROCYTOSIS SLIGHT; OVALOCYTES SLIGHT; POLYCHROMIC SLIGHT; TARGET CELLS SLIGHT
[2017-09-16] MEDS: Pantoprazole 40 mg EC Tab PO SCH (10:33)
[2017-09-16] MEDS: MethylPREDNISolone 40 mg Vial IVP SCH ×2 (10:34→21:00)
[2017-09-16] MEDS: (Novolog) Insulin Aspart, Recombinant 100 u/ml 10 ml vial SC SCH ×4 (10:36→22:00)
--- NOTE | 2017-09-16 11:18 | CT ---
PROCEDURE: CT Angiography Abdomen, Pelvis and Lower Extremity with Contrast HISTORY: abnormal KAREN, claudication COMPARISON: None. TECHNIQUE: Technique: CT angiography of the abdomen, pelvis and bilateral lower extremities performed in the arterial phase of enhancement. Coronal and sagittal reformats, and well as rotating MIP images of the vessels generated at the workstation. Intravenous contrast dose: 100 milliliters Visipaque 320 Radiation dose: Total exam DLP = 1145.11 MGy-cm. This CT exam was performed using one or more of the following dose reduction techniques: Automated exposure control, adjustment of the mA and/or kV according to patient size, and/or use of iterative reconstruction technique. FINDINGS: CT ANGIOGRAPHY: ABDOMINAL AORTA:: The suprarenal aorta is unremarkable. There is significant plaque throughout the infrarenal aorta with greater than 50 percent luminal narrowing. MAJOR AORTIC BRANCHES: Celiac [place]: Unremarkable. Superior mesenteric artery: Unremarkable. Inferior mesenteric artery: Unremarkable. Renal arteries: Unremarkable. PELVIC ARTERIES: Right Common Iliac: Moderate calcific plaque, aneurysmal dilatation 18 millimeter, significant soft plaque with greater 50 percent luminal narrowing. Right External Iliac: Mild to severe calcific plaque with moderate to severe stenosis of the external iliac artery. Right Internal Iliac: Heavily calcified and severely stenotic Left Common Iliac: Occluded Left External Iliac: Retrograde flow in the distal external iliac artery. Left Internal Iliac: Heavily calcified and severely stenotic RIGHT LOWER EXTREMITY ARTERIES: Right Common Femoral: Severe calcific plaque in the common femoral artery with mild to severe stenosis. Right Superficial Femoral: Occlusion of the SFA beginning at the origin. Right Profunda Femoris: Unremarkable. Right Popliteal:Occluded. There is small areas of flow seen within the mid popliteal artery. Right Anterior Tibial: Unremarkable. Right Tibioperoneal Trunk: Mild calcific plaque with no significant stenosis. Right Posterior Tibial: Moderate calcific plaque but appears patent. Right Peroneal: Unremarkable. Right dorsalis pedis : Unremarkable. LEFT LOWER EXTREMITY ARTERIES: Left Common Femoral: Moderate calcific plaque with moderate stenosis. Left Superficial Femoral: Occlusion of the left SFA with no reconstitution Left Profunda Femoris: Unremarkable. Left Popliteal: Occluded Left Anterior Tibial: Unremarkable. Left Tibioperoneal Trunk: Proximal occluded and reconstitutes. Left Posterior Tibial: Mildly calcific plaque in the areas of [id number] stenosis in the mid segment. Left Peroneal: Unremarkable. Left Dorsalis pedis: Unremarkable. NON-ANGIOGRAPHIC ASPECT OF THE EXAM: LOWER THORAX: Unremarkable. LIVER: Unremarkable. No gross lesion or ductal dilatation. GALLBLADDER AND BILE DUCTS: Unremarkable. PANCREAS: Unremarkable. No gross lesion or ductal dilatation. SPLEEN: Unremarkable. ADRENALS: Unremarkable. No mass. KIDNEYS AND URETERS: Unremarkable. No hydronephrosis. No solid mass. STOMACH AND BOWEL: Unremarkable. No obstruction. No gross mural thickening. APPENDIX: Normal appendix. PERITONEUM: Unremarkable. No free fluid. No free air. LYMPH NODES: Unremarkable. No enlarged lymph nodes. BLADDER: Unremarkable. REPRODUCTIVE: Unremarkable. BONES: No acute fracture. OTHER FINDINGS: None. IMPRESSION: CT ANGIOGRAM ABDOMEN/PELVIS: 1. Severe plaque throughout the infrarenal aorta with greater 50 percent luminal Narrowing. 2. There is occlusion of the left SFA extending into the external iliac artery. There is retrograde filling of the distal external iliac artery. 3. 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 There is significant soft plaque throughout the external iliac artery with greater than 50 percent luminal narrowing. There is moderate to severe calcific plaque of the right external iliac artery with mild to severe stenosis. RIGHT LOWER EXTREMITY CT ANGIOGRAM: 1. The right common femoral artery has severe calcific plaque with moderate stenosis. 2. The profunda femoral artery is unremarkable. 3. There is occlusion of the right SFA extending to the below-knee popliteal artery. 4. Anterior tibial artery and peroneal artery fills via collateral and unremarkable. The posterior tibial artery is moderately calcified and has areas of [id number] stenosis. The posterior tibial artery is believed to be patent. LEFT LOWER EXTREMITY CT ANGIOGRAM: 1. Moderate plaque of the left common femoral artery with moderate stenosis 2. Profunda femoral artery is unremarkable 3. Occlusion of the left SFA extending to the below-knee popliteal artery. 4. The posterior tibial artery is mildly calcified and areas of [id number] stenosis in the mid segment but is believed to be patent. 5. The peroneal and anterior tibial artery fill via collateral and are unremarkable.
[2017-09-16] MEDS: Micafungin 100 MG in Sodium Chloride 0.9% 100 ML IV SCH (20:00)
--- NOTE | 2017-09-16 22:45 | CP.PCM.PN ---
Subjective - Date & Time of Evaluation Date of Evaluation: 09/16/17 Time of Evaluation: 22:45 - Subjective Subjective: CHIEF COMPLAINTS TODAY : AFEBRILE, no new complaints.. feeling tired Vascular surgery follow-up noted' angio done and reviewed. as per vascular-PT CAN BE STENTED. . Doppler studies-seen. Consistent with multilevel occlusive disease as per vascular surgery. ROS. HEENT : N. Resp : NO SOB wheezing, cough Cardio : No CP, PND orthopnea GI : No abd. 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 Musculoskel : N Ext. : Pedal pulses WEAK LT. SIDE, no edema or calf pain Derm : N Psych : N. PE. Pt. is AWAKE in no distress .EXTUBATED. V.S As noted in the chart Head ,ear nose,throat and eyes : Normal. Neck : Supple with normal carotids. Lungs: BETTER AERATION BOTH BASES. Heart : S1 & S2 REGULAR . No murmur. Abd : Soft non tender with normal bowel sounds. Neuro : Moves all ext. with no localized deficit. Ext : No edema with intact pulses. Neg. calf tenderness Pedal pulses WEAK LT. SIDE, no edema or calf pain .TOES BLUISH Derm : No rashes or decubitus ulcer. Radiology/Labs . REVIEWED. CXR ;; IMPROVED .NO OPACITY RT SIDE CHEST X-RAY RIGHT LOWER LUNG MEDIAL OPACITY ? ARTIFACTUAL urine culture+ve yeast Tracheal aspirate +ve Klebsiella pneumoniae/yeast. Objective - Vital Signs/Intake and Output Vital Signs (last 24 hours): Temp Pulse Resp BP Pulse Ox 98.5 F 109 H 22 150/78 92 L 09/16/17 20:00 09/16/17 20:59 09/16/17 20:59 09/16/17 21:00 09/16/17 20:59 - Medications Medications: Current Medications Acetaminophen (Tylenol 650mg/20.3ml Solution Ud) 650 mg PO Q4 PRN PRN Reason: for temperature >101 F Last Admin: 09/13/17 18:00 Dose: 650 mg Albuterol/Ipratropium (Duoneb 3 Mg/0.5 Mg (3 Ml) Ud) 3 ml INH RQ6 [facility] Last Admin: 09/16/17 20:03 Dose: 3 ml Aspirin (Aspirin Chewable) 81 mg PO DAILY [facility] Last Admin: 09/16/17 10:33 Dose: 81 mg Meropenem 1 gm/ Sodium (Chloride) 100 mls @ 100 mls/hr IVPB Q8H [facility] Last Admin: 09/16/17 19:03 Dose: 100 mls/hr Micafungin Sodium 100 mg/ (Sodium Chloride) 100 mls @ 100 mls/hr IV Q24H [facility] Last Admin: 09/16/17 20:00 Dose: 100 mls/hr Insulin Aspart (Novolog) 0 unit SC ACHS [facility] PRN Reason: Protocol Last Admin: 09/16/17 19:03 Dose: Not Given Losartan Potassium (Cozaar) 50 mg PO DAILY [facility] Last Admin: 09/16/17 10:34 Dose: 50 mg Methylprednisolone (Solu-Medrol) 40 mg IVP Q12 [facility] Last Admin: 09/16/17 21:00 Dose: 40 mg Metoprolol Tartrate (Lopressor) 50 mg PO BID [facility] Last Admin: 09/16/17 19:03 Dose: 50 mg Pantoprazole Sodium (Protonix Ec Tab) 40 mg PO DAILY [facility] Last Admin: 09/16/17 10:33 Dose: 40 mg Spironolactone (Aldactone) 25 mg PO DAILY [facility] Last Admin: 09/16/17 10:34 Dose: 25 mg - Labs Labs: 09/16/17 06:24 09/16/17 06:24 PT 12.6 SECONDS (9.7-12.2) H 08/30/17 23:18 INR 1.1 08/30/17 23:18 APTT 28 SECONDS (21-34) 08/30/17 23:18 Assessment and Plan (1) Respiratory failure Assessment & Plan: REMAINS EXTUBATED. COMFORTABLE LYING FLAT. Status: Acute (2) Fever Status: Acute (3) Pneumonia Assessment & Plan: S/P EXTUBATION. SPUTUM POSITIVE FOR kLEBSIELLA PNEUMONIA/YEAST. ON iv ANTIBIOTICS/ANTIFUNGAL-mYCAMINE. Status: Acute (4) COPD exacerbation Status: Acute (5) CHF (congestive heart failure) Status: Acute (6) Severe anemia Status: Acute (7) Type II diabetes mellitus Status: Acute (8) History of bilateral mastectomy Status: Acute (9) Candiduria Assessment & Plan: patient on IV Mycamine for candiduria. Follow-up UA and urine culture. Status: Acute (10) PVD (peripheral vascular disease) Assessment & Plan: PT FOR STENTING PER V. SURGERY Status: Acute
[2017-09-17] MEDS: Albuterol-Ipratrop 3 mg / 0.5 (3 ml) UD INH SCH ×3 (02:19→13:22)
[2017-09-17] MEDS: Meropenem 1 GM in Sodium Chloride 0.9% 100 ML IVPB SCH ×3 (03:00→18:45)
[2017-09-17] MEDS: (Novolog) Insulin Aspart, Recombinant 100 u/ml 10 ml vial SC SCH ×4 (08:03→21:29)
--- NOTE | 2017-09-17 09:53 | CP.PCM.PN ---
Subjective - Date & Time of Evaluation Date of Evaluation: 09/17/17 Time of Evaluation: 08:00 - Subjective Subjective: Vascular Surgery- Dr. Zepeda Patient seen and examined at bedside this AM. No new complaints. no acute events overnight. Objective - Vital Signs/Intake and Output Vital Signs (last 24 hours): Temp Pulse Resp BP Pulse Ox 98.3 F 125 H 25 H 164/99 H 99 09/17/17 04:00 09/17/17 08:00 09/17/17 08:00 09/17/17 08:00 09/17/17 08:00 Intake and Output: 09/17/17 09/17/17 06:59 18:59 Intake Total 680 Balance 680 - Medications Medications: Current Medications Acetaminophen (Tylenol 650mg/20.3ml Solution Ud) 650 mg PO Q4 PRN PRN Reason: for temperature >101 F Last Admin: 09/13/17 18:00 Dose: 650 mg Albuterol/Ipratropium (Duoneb 3 Mg/0.5 Mg (3 Ml) Ud) 3 ml INH RQ6 [facility] Last Admin: 09/17/17 07:31 Dose: 3 ml Aspirin (Aspirin Chewable) 81 mg PO DAILY [facility] Last Admin: 09/16/17 10:33 Dose: 81 mg Meropenem 1 gm/ Sodium (Chloride) 100 mls @ 100 mls/hr IVPB Q8H [facility] Last Admin: 09/17/17 03:00 Dose: 100 mls/hr Micafungin Sodium 100 mg/ (Sodium Chloride) 100 mls @ 100 mls/hr IV Q24H [facility] Last Admin: 09/16/17 20:00 Dose: 100 mls/hr Insulin Aspart (Novolog) 0 unit SC ACHS [facility] PRN Reason: Protocol Last Admin: 09/17/17 08:03 Dose: Not Given Losartan Potassium (Cozaar) 50 mg PO DAILY [facility] Last Admin: 09/16/17 10:34 Dose: 50 mg Methylprednisolone (Solu-Medrol) 40 mg IVP Q12 [facility] Last Admin: 09/16/17 21:00 Dose: 40 mg Metoprolol Tartrate (Lopressor) 50 mg PO BID [facility] Last Admin: 09/16/17 19:03 Dose: 50 mg Pantoprazole Sodium (Protonix Ec Tab) 40 mg PO DAILY [facility] Last Admin: 09/16/17 10:33 Dose: 40 mg Spironolactone (Aldactone) 25 mg PO DAILY [facility] Last Admin: 09/16/17 10:34 Dose: 25 mg - Labs Labs: 09/16/17 06:24 09/16/17 06:24 PT 12.6 SECONDS (9.7-12.2) H 08/30/17 23:18 INR 1.1 08/30/17 23:18 APTT 28 SECONDS (21-34) 08/30/17 23:18 - Constitutional Appears: Non-toxic, No Acute Distress - Eye Exam Eye Exam: EOMI. absent: Scleral icterus - ENT Exam ENT Exam: Mucous Membranes Moist - Cardiovascular Exam Cardiovascular Exam: +S1, +S2. absent: Bradycardia, Tachycardia - GI/Abdominal Exam GI & Abdominal Exam: Soft. absent: Distended, Firm, Guarding, Rigid, Tenderness - Extremities Exam Extremities Exam: absent: Calf Tenderness Additional comments: no bilateral distal pedal palpable pulses - Neurological Exam Neurological Exam: Altered, Awake - Skin Skin Exam: Intact, Warm Assessment and Plan - Assessment and Plan (Free Text) Assessment: 72F w/ aortoiliac disease Plan: - No immediate surgical intervention at this time - will need to be medically optimized prior to any intervention - discussed w/ Dr. Zepeda surgical attending PGY1
[2017-09-17] MEDS: MethylPREDNISolone 40 mg Vial IVP SCH ×2 (10:09→21:27)
[2017-09-17] MEDS: Pantoprazole 40 mg EC Tab PO SCH (10:09)
--- NOTE | 2017-09-17 10:23 | CP.PCM.PN ---
Subjective - Date & Time of Evaluation Date of Evaluation: 09/17/17 Time of Evaluation: 10:19 - Subjective Subjective: oob horseness of voice [id number]/99 Objective - Vital Signs/Intake and Output Vital Signs (last 24 hours): Temp Pulse Resp BP Pulse Ox 98.3 F 125 H 25 H 164/99 H 99 09/17/17 04:00 09/17/17 08:00 09/17/17 08:00 09/17/17 08:00 09/17/17 08:00 Intake and Output: 09/17/17 09/17/17 06:59 18:59 Intake Total 680 Balance 680 - Medications Medications: Current Medications Acetaminophen (Tylenol 650mg/20.3ml Solution Ud) 650 mg PO Q4 PRN PRN Reason: for temperature >101 F Last Admin: 09/13/17 18:00 Dose: 650 mg Albuterol/Ipratropium (Duoneb 3 Mg/0.5 Mg (3 Ml) Ud) 3 ml INH RQ6 [facility]S [facility] Last Admin: 09/17/17 07:31 Dose: 3 ml Aspirin (Aspirin Chewable) 81 mg PO DAILY [facility] Last Admin: 09/17/17 10:08 Dose: 81 mg Meropenem 1 gm/ Sodium (Chloride) 100 mls @ 100 mls/hr IVPB Q8H [facility] 234 [facility]S AT [facility] Last Admin: 09/17/17 10:09 Dose: 100 mls/hr Micafungin Sodium 100 mg/ (Sodium Chloride) 100 mls @ 100 mls/hr IV Q24H [facility] 234 [facility]S [facility] Last Admin: 09/16/17 20:00 Dose: 100 mls/hr Insulin Aspart (Novolog) 0 unit SC ACHS [facility] PRN Reason: Protocol Last Admin: 09/17/17 08:03 Dose: Not Given Losartan Potassium (Cozaar) 50 mg PO DAILY [facility] Last Admin: 09/17/17 10:08 Dose: 50 mg Methylprednisolone (Solu-Medrol) 40 mg IVP Q12 [facility] Last Admin: 09/17/17 10:09 Dose: 40 mg Metoprolol Tartrate (Lopressor) 50 mg PO BID [facility] Last Admin: 09/17/17 10:09 Dose: 50 mg Pantoprazole Sodium (Protonix Ec Tab) 40 mg PO DAILY [facility] Last Admin: 09/17/17 10:09 Dose: 40 mg Spironolactone (Aldactone) 25 mg PO DAILY [facility] Last Admin: 09/17/17 10:08 Dose: 25 mg - Labs Labs: 09/16/17 06:24 09/16/17 06:24 PT 12.6 SECONDS (9.7-12.2) H 08/30/17 23:18 INR 1.1 08/30/17 23:18 APTT 28 SECONDS (21-34) 08/30/17 23:18 - Constitutional Appears: Non-toxic - Head Exam Head Exam: ATRAUMATIC - Eye Exam Eye Exam: Normal appearance Pupil Exam: NORMAL ACCOMODATION - ENT Exam ENT Exam: Mucous Membranes Moist - Neck Exam Neck Exam: Full ROM - Respiratory Exam Respiratory Exam: Decreased Breath Sounds - Cardiovascular Exam Cardiovascular Exam: Tachycardia - GI/Abdominal Exam GI & Abdominal Exam: Normal Bowel Sounds - Extremities Exam Extremities Exam: Normal Inspection - Back Exam Back Exam: NORMAL INSPECTION - Neurological Exam Neurological Exam: Alert, Awake, Oriented x3 - Psychiatric Exam Psychiatric exam: Normal Affect - Skin Skin Exam: Pallor Assessment and Plan - Assessment and Plan (Free Text) Assessment: tachycardia pnumonia copd htn horseness of voice generalised weekness aneamia Plan: will add cardiazyme cont as per orders
[2017-09-17] MEDS: Acetaminophen 650mg/20.3ml solution UD PO PRN (17:43)
--- NOTE | 2017-09-17 19:42 | CP.PCM.PN ---
Subjective - Date & Time of Evaluation Date of Evaluation: 09/17/17 Time of Evaluation: 19:42 - Subjective Subjective: CHIEF COMPLAINTS TODAY : AFEBRILE, no new complaints. OOB ON CHAIR Vascular surgery follow-up noted' angio done and reviewed. as per vascular-PT CAN BE STENTED. . Doppler studies-seen. Consistent with multilevel occlusive disease as per vascular surgery. ROS. HEENT : N. Resp : NO SOB wheezing, cough Cardio : No CP, PND orthopnea GI : No abd. 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 Musculoskel : N Ext. : Pedal pulses WEAK LT. SIDE, no edema or calf pain Derm : N Psych : N. PE. Pt. is AWAKE in no distress .EXTUBATED. V.S As noted in the chart Head ,ear nose,throat and eyes : Normal. Neck : Supple with normal carotids. Lungs: BETTER AERATION BOTH BASES. Heart : S1 & S2 REGULAR . No murmur. Abd : Soft non tender with normal bowel sounds. Neuro : Moves all ext. with no localized deficit. Ext : No edema with intact pulses. Neg. calf tenderness Pedal pulses WEAK LT. SIDE, no edema or calf pain .TOES BLUISH Derm : No rashes or decubitus ulcer. Radiology/Labs . reviewed. Objective - Vital Signs/Intake and Output Vital Signs (last 24 hours): Temp Pulse Resp BP Pulse Ox 97.1 F L 89 19 135/75 95 09/17/17 12:00 09/17/17 14:59 09/17/17 14:59 09/17/17 14:59 09/17/17 14:59 - Medications Medications: Current Medications Acetaminophen (Tylenol 650mg/20.3ml Solution Ud) 650 mg PO Q4 PRN PRN Reason: for temperature >101 F Last Admin: 09/17/17 17:43 Dose: 650 mg Diltiazem HCl (Cardizem) 60 mg PO DAILY [facility] Last Admin: 09/17/17 11:04 Dose: 60 mg Meropenem 1 gm/ Sodium (Chloride) 100 mls @ 100 mls/hr IVPB Q8H [facility] Last Admin: 09/17/17 10:09 Dose: 100 mls/hr Micafungin Sodium 100 mg/ (Sodium Chloride) 100 mls @ 100 mls/hr IV Q24H [facility] Last Admin: 09/16/17 20:00 Dose: 100 mls/hr Insulin Aspart (Novolog) 0 unit SC ACHS [facility] PRN Reason: Protocol Last Admin: 09/17/17 16:51 Dose: Not Given Losartan Potassium (Cozaar) 50 mg PO DAILY [facility] Last Admin: 09/17/17 10:08 Dose: 50 mg Methylprednisolone (Solu-Medrol) 40 mg IVP Q12 [facility] Last Admin: 09/17/17 10:09 Dose: 40 mg Metoprolol Tartrate (Lopressor) 50 mg PO BID [facility] Last Admin: 09/17/17 17:45 Dose: 50 mg Pantoprazole Sodium (Protonix Ec Tab) 40 mg PO DAILY [facility] Last Admin: 09/17/17 10:09 Dose: 40 mg Spironolactone (Aldactone) 25 mg PO DAILY [facility] Last Admin: 09/17/17 10:08 Dose: 25 mg - Labs Labs: 09/16/17 06:24 09/16/17 06:24 PT 12.6 SECONDS (9.7-12.2) H 08/30/17 23:18 INR 1.1 08/30/17 23:18 APTT 28 SECONDS (21-34) 08/30/17 23:18 Assessment and Plan (1) Respiratory failure Status: Acute (2) Fever Status: Acute (3) Pneumonia Assessment & Plan: S/P EXTUBATION. SPUTUM POSITIVE FOR kLEBSIELLA PNEUMONIA/YEAST. ON iv ANTIBIOTICS/ANTIFUNGAL-mYCAMINE. Status: Acute (4) COPD exacerbation Status: Acute (5) CHF (congestive heart failure) Status: Acute (6) Severe anemia Status: Acute (7) Type II diabetes mellitus Status: Acute (8) History of bilateral mastectomy Status: Acute (9) Candiduria Assessment & Plan: REPEAT UA/ URINE CULTURE-P Status: Acute (10) PVD (peripheral vascular disease) Assessment & Plan: vascular workup in progress. Status: Acute
[2017-09-17] MEDS: Micafungin 100 MG in Sodium Chloride 0.9% 100 ML IV SCH (20:20)
[2017-09-17 22:43] LABS: URINE BILIRUBIN NEGATIVE (NEGATIVE); URINE BLOOD 1+ (NEGATIVE); URINE CLARITY Clear (Clear); URINE COLOR Yellow (YELLOW); URINE GLUCOSE (UA) 1+ mg/dL (Normal); URINE LEUKOCYTE ESTERASE NEG Leu/uL (Negative); URINE NITRATE NEGATIVE (NEGATIVE); URINE PROTEIN 1+ mg/dL (NEGATIVE); URINE UROBILINOGEN NORMAL mg/dL (0.2-1.0)
[2017-09-18] MEDS: Meropenem 1 GM in Sodium Chloride 0.9% 100 ML IVPB SCH ×3 (03:35→18:00)
[2017-09-18] MEDS: (Novolog) Insulin Aspart, Recombinant 100 u/ml 10 ml vial SC SCH ×4 (07:34→22:00)
[2017-09-18] MEDS ORDERED: Acetaminophen 650mg/20.3ml solution UD PO PRN (07:45)
[2017-09-18] MEDS: Albuterol-Ipratrop 3 mg / 0.5 (3 ml) UD INH SCH ×3 (08:16→19:59)
--- NOTE | 2017-09-18 10:29 | CP.PCM.PN ---
Subjective - Date & Time of Evaluation Date of Evaluation: 09/18/17 Time of Evaluation: 10:26 - Subjective Subjective: sleepy comfortable Objective - Vital Signs/Intake and Output Vital Signs (last 24 hours): Temp Pulse Resp BP Pulse Ox 98 F 82 20 131/71 98 09/18/17 04:00 09/18/17 04:00 09/18/17 04:00 09/18/17 04:00 09/18/17 04:00 Intake and Output: 09/18/17 09/18/17 06:59 18:59 Intake Total 250 Output Total 700 Balance -450 - Medications Medications: Current Medications Acetaminophen (Tylenol 650mg/20.3ml Solution Ud) 650 mg PO Q4 PRN PRN Reason: for temperature >101 F Albuterol/Ipratropium (Duoneb 3 Mg/0.5 Mg (3 Ml) Ud) 3 ml INH RQ6 [facility] Last Admin: 09/18/17 08:16 Dose: 3 ml Aspirin (Aspirin Chewable) 81 mg PO DAILY [facility] Diltiazem HCl (Cardizem) 60 mg PO DAILY [facility] Last Admin: 09/17/17 11:04 Dose: 60 mg Meropenem 1 gm/ Sodium (Chloride) 100 mls @ 100 mls/hr IVPB Q8H [facility] Last Admin: 09/18/17 03:35 Dose: 100 mls/hr Micafungin Sodium 100 mg/ (Sodium Chloride) 100 mls @ 100 mls/hr IV Q24H [facility] Last Admin: 09/17/17 20:20 Dose: 100 mls/hr Insulin Aspart (Novolog) 0 unit SC ACHS [facility] PRN Reason: Protocol Last Admin: 09/18/17 07:34 Dose: Not Given Losartan Potassium (Cozaar) 50 mg PO DAILY [facility] Last Admin: 09/17/17 10:08 Dose: 50 mg Methylprednisolone (Solu-Medrol) 40 mg IVP Q12 [facility] Last Admin: 09/17/17 21:27 Dose: 40 mg Metoprolol Tartrate (Lopressor) 50 mg PO BID [facility] Last Admin: 09/17/17 17:45 Dose: 50 mg Pantoprazole Sodium (Protonix Ec Tab) 40 mg PO DAILY [facility] Last Admin: 09/17/17 10:09 Dose: 40 mg Spironolactone (Aldactone) 25 mg PO DAILY [facility] Last Admin: 09/17/17 10:08 Dose: 25 mg - Labs Labs: 09/16/17 06:24 09/16/17 06:24 PT 12.6 SECONDS (9.7-12.2) H 08/30/17 23:18 INR 1.1 08/30/17 23:18 APTT 28 SECONDS (21-34) 08/30/17 23:18 - Constitutional Appears: No Acute Distress - Head Exam Head Exam: ATRAUMATIC - Eye Exam Eye Exam: Normal appearance Pupil Exam: NORMAL ACCOMODATION - ENT Exam ENT Exam: Mucous Membranes Moist - Neck Exam Neck Exam: Full ROM - Respiratory Exam Respiratory Exam: Decreased Breath Sounds - Cardiovascular Exam Cardiovascular Exam: REGULAR RHYTHM - GI/Abdominal Exam GI & Abdominal Exam: Normal Bowel Sounds - Rectal Exam Rectal Exam: NORMAL INSPECTION - Exam External exam: NORMAL EXTERNAL EXAM - Extremities Exam Extremities Exam: Full ROM - Back Exam Back Exam: NORMAL INSPECTION - Psychiatric Exam Psychiatric exam: Normal Affect Assessment and Plan - Assessment and Plan (Free Text) Assessment: s/p resp f s/p bilateral pnumonia hypoxeamia aneamia gi bblood loss Plan: cont as per orders
[2017-09-18] MEDS: Pantoprazole 40 mg EC Tab PO SCH (10:59)
[2017-09-18] MEDS: MethylPREDNISolone 40 mg Vial IVP SCH ×2 (10:59→21:40)
[2017-09-18] MEDS: Micafungin 100 MG in Sodium Chloride 0.9% 100 ML IV SCH (20:35)
[2017-09-19] MEDS: Albuterol-Ipratrop 3 mg / 0.5 (3 ml) UD INH SCH ×4 (01:11→20:50)
[2017-09-19] MEDS: Meropenem 1 GM in Sodium Chloride 0.9% 100 ML IVPB SCH ×3 (03:19→18:27)
[2017-09-19] MEDS: (Novolog) Insulin Aspart, Recombinant 100 u/ml 10 ml vial SC SCH ×3 (07:49→17:18)
--- NOTE | 2017-09-19 08:27 | PN ---
DATE: SUBJECTIVE: Patient is in ICU. This patient is improving. Her shortness of breath is less. Bronchodilator. Supportive care. Leslie Mak MD
--- NOTE | 2017-09-19 09:35 | CP.PCM.PN ---
Subjective - Date & Time of Evaluation Date of Evaluation: 09/19/17 Time of Evaluation: 09:26 - Subjective Subjective: Pt is lethargic, no complaints Objective - Vital Signs/Intake and Output Vital Signs (last 24 hours): Temp Pulse Resp BP Pulse Ox 97.6 F 85 18 140/71 100 09/19/17 04:00 09/19/17 07:31 09/19/17 07:31 09/19/17 07:31 09/19/17 07:31 Intake and Output: 09/19/17 09/19/17 06:59 18:59 Intake Total 250 Output Total 225 Balance 25 - Medications Medications: Current Medications Acetaminophen (Tylenol 650mg/20.3ml Solution Ud) 650 mg PO Q4 PRN PRN Reason: for temperature >101 F Albuterol/Ipratropium (Duoneb 3 Mg/0.5 Mg (3 Ml) Ud) 3 ml INH RQ6 [facility] Last Admin: 09/19/17 07:15 Dose: 3 ml Aspirin (Aspirin Chewable) 81 mg PO DAILY [facility] Last Admin: 09/18/17 10:59 Dose: 81 mg Meropenem 1 gm/ Sodium (Chloride) 100 mls @ 100 mls/hr IVPB Q8H [facility] Last Admin: 09/19/17 03:19 Dose: 100 mls/hr Micafungin Sodium 100 mg/ (Sodium Chloride) 100 mls @ 100 mls/hr IV Q24H [facility] Last Admin: 09/18/17 20:35 Dose: 100 mls/hr Insulin Aspart (Novolog) 0 unit SC ACHS [facility] PRN Reason: Protocol Last Admin: 09/19/17 07:49 Dose: Not Given Losartan Potassium (Cozaar) 50 mg PO DAILY [facility] Last Admin: 09/18/17 10:59 Dose: 50 mg Methylprednisolone (Solu-Medrol) 40 mg IVP Q12 [facility] Last Admin: 09/18/17 21:40 Dose: 40 mg Metoprolol Tartrate (Lopressor) 50 mg PO BID [facility] Last Admin: 09/18/17 17:57 Dose: 50 mg Pantoprazole Sodium (Protonix Ec Tab) 40 mg PO DAILY [facility] Last Admin: 09/18/17 10:59 Dose: 40 mg Spironolactone (Aldactone) 25 mg PO DAILY [facility] Last Admin: 02/25/18 10:59 Dose: 25 mg - Labs Labs: 09/16/17 06:24 09/16/17 06:24 PT 12.6 SECONDS (9.7-12.2) H 08/30/17 23:18 INR 1.1 08/30/17 23:18 APTT 28 SECONDS (21-34) 08/30/17 23:18 - Constitutional Appears: Cachectic, Chronically Ill - Eye Exam Eye Exam: EOMI - ENT Exam ENT Exam: Mucous Membranes Dry - Neck Exam Neck Exam: Normal Inspection - Respiratory Exam Respiratory Exam: Clear to Ausculation Bilateral - Cardiovascular Exam Cardiovascular Exam: REGULAR RHYTHM - GI/Abdominal Exam GI & Abdominal Exam: Normal Bowel Sounds - Back Exam Back Exam: NORMAL INSPECTION - Neurological Exam Neurological Exam: Awake - Skin Skin Exam: Normal Color Assessment and Plan - Assessment and Plan (Free Text) Assessment: 1, No recurrent afib 2. Severe LV dysfunction: PAD is chronic and well documented as outpatient, essentially no change . Dr Carson say no emergency for intervention. Pt has a marked deterioration in LV EF since last echo without tni elevation, either an SC that was missed at home or Taketsubo. Prior to any peripheral vascularization strategy, the cad assessment is to come firs, with likely cardiac cat. Pt is stable at the moment, and still lethargic and ill. Cardiac cath is not advised t at this time. will rpeat echo to see if EF has imprved since admission. 2. Po cardezem was started for sinus tach: As pt has reduced LV EF, cardezem is contraindicated, and highr dose beta hector is preferable. Better yet, treat underlying porblem resulting in s tachycardia.
[2017-09-19] MEDS: Pantoprazole 40 mg EC Tab PO SCH (10:27)
[2017-09-19] MEDS: MethylPREDNISolone 40 mg Vial IVP SCH ×2 (10:27→21:30)
--- NOTE | 2017-09-19 10:28 | PN ---
DATE: 09/18/2017 SUBJECTIVE: The patient is improving. Still eats, supportive care and bronchodilators. Leslie Mak MD
--- NOTE | 2017-09-19 10:42 | PN ---
DATE: 09/09/2017. SUBJECTIVE: The patient shortness of breath, extubated. The patient gets supportive care, bronchodilator and antibiotics. Leslie Mak MD
--- NOTE | 2017-09-19 17:50 | CP.PCM.PN ---
Subjective - Date & Time of Evaluation Date of Evaluation: 09/19/17 Time of Evaluation: 17:47 - Subjective Subjective: pt in floor now c/o weeke foot pain canot open l hand still horseness of voice Objective - Vital Signs/Intake and Output Vital Signs (last 24 hours): Temp Pulse Resp BP Pulse Ox 95.6 F L 76 20 107/62 97 09/19/17 16:39 09/19/17 16:39 09/19/17 16:39 09/19/17 16:39 09/19/17 16:39 Intake and Output: 09/19/17 09/19/17 06:59 18:59 Intake Total 250 Output Total 225 Balance 25 - Medications Medications: Current Medications Acetaminophen (Tylenol 650mg/20.3ml Solution Ud) 650 mg PO Q4 PRN PRN Reason: for temperature >101 F Albuterol/Ipratropium (Duoneb 3 Mg/0.5 Mg (3 Ml) Ud) 3 ml INH RQ6 [facility] Last Admin: 09/19/17 13:10 Dose: 3 ml Aspirin (Aspirin Chewable) 81 mg PO DAILY [facility] Last Admin: 09/19/17 10:26 Dose: 81 mg Meropenem 1 gm/ Sodium (Chloride) 100 mls @ 100 mls/hr IVPB Q8H [facility] Last Admin: 09/19/17 10:27 Dose: 100 mls/hr Micafungin Sodium 100 mg/ (Sodium Chloride) 100 mls @ 100 mls/hr IV Q24H [facility] Last Admin: 09/18/17 20:35 Dose: 100 mls/hr Insulin Aspart (Novolog) 0 unit SC ACHS [facility] PRN Reason: Protocol Last Admin: 09/19/17 17:18 Dose: Not Given Losartan Potassium (Cozaar) 50 mg PO DAILY [facility] Last Admin: 09/19/17 10:27 Dose: 50 mg Methylprednisolone (Solu-Medrol) 40 mg IVP Q12 [facility] Last Admin: 09/19/17 10:27 Dose: 40 mg Metoprolol Tartrate (Lopressor) 50 mg PO BID [facility] Last Admin: 09/19/17 10:27 Dose: 50 mg Pantoprazole Sodium (Protonix Ec Tab) 40 mg PO DAILY [facility] Last Admin: 09/19/17 10:27 Dose: 40 mg Spironolactone (Aldactone) 25 mg PO DAILY [facility] Last Admin: 09/19/17 10:26 Dose: 25 mg - Labs Labs: 09/16/17 06:24 09/16/17 06:24 PT 12.6 SECONDS (9.7-12.2) H 08/30/17 23:18 INR 1.1 08/30/17 23:18 APTT 28 SECONDS (21-34) 08/30/17 23:18 - Constitutional Appears: Non-toxic - Head Exam Head Exam: ATRAUMATIC, NORMAL INSPECTION - Eye Exam Eye Exam: Normal appearance Pupil Exam: NORMAL ACCOMODATION - ENT Exam ENT Exam: Mucous Membranes Moist - Neck Exam Neck Exam: Full ROM - Respiratory Exam Respiratory Exam: Decreased Breath Sounds - Cardiovascular Exam Cardiovascular Exam: REGULAR RHYTHM - GI/Abdominal Exam GI & Abdominal Exam: Normal Bowel Sounds - Back Exam Back Exam: NORMAL INSPECTION - Neurological Exam Neurological Exam: Awake, Oriented x3 - Psychiatric Exam Psychiatric exam: Normal Affect - Skin Skin Exam: Pallor Assessment and Plan - Assessment and Plan (Free Text) Assessment: s/p resp failiure s/p pnumonia aneamia copd Plan: as per orders
[2017-09-19] MEDS: Micafungin 100 MG in Sodium Chloride 0.9% 100 ML IV SCH (20:12)
--- NOTE | 2017-09-19 23:50 | CP.PCM.PN ---
Subjective - Date & Time of Evaluation Date of Evaluation: 09/19/17 Time of Evaluation: 23:50 - Subjective Subjective: CHIEF COMPLAINTS TODAY : SEEN ON GMF AFEBRILE, STILL C/O HOARSENESS. VASCULAR SURGERY F/U NOTED ROS. HEENT : N. Resp : NO SOB wheezing, cough Cardio : No CP, PND orthopnea GI : No abd. 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 Musculoskel : N Ext. : Pedal pulses WEAK LT. SIDE, no edema or calf pain Derm : N Psych : N. PE. Pt. is AWAKE in no distress V.S As noted in the chart Head ,ear nose,throat and eyes : Normal. Neck : Supple with normal carotids. Lungs: BETTER AERATION BOTH BASES. Heart : S1 & S2 REGULAR . No murmur. Abd : Soft non tender with normal bowel sounds. Neuro : Moves all ext. with no localized deficit. Ext : No edema with intact pulses. Neg. calf tenderness Pedal pulses WEAK LT. SIDE, no edema or calf pain .TOES BLUISH Derm : No rashes or decubitus ulcer. Radiology/Labs . reviewed. Objective - Vital Signs/Intake and Output Vital Signs (last 24 hours): Temp Pulse Resp BP Pulse Ox 97.8 F 80 18 108/65 95 09/19/17 20:16 09/19/17 20:16 09/19/17 20:16 09/19/17 20:16 09/19/17 20:16 - Medications Medications: Current Medications Acetaminophen (Tylenol 650mg/20.3ml Solution Ud) 650 mg PO Q4 PRN PRN Reason: for temperature >101 F Albuterol/Ipratropium (Duoneb 3 Mg/0.5 Mg (3 Ml) Ud) 3 ml INH RQ6 [facility] Last Admin: 09/19/17 20:50 Dose: 3 ml Aspirin (Aspirin Chewable) 81 mg PO DAILY [facility] Last Admin: 09/19/17 10:26 Dose: 81 mg Meropenem 1 gm/ Sodium (Chloride) 100 mls @ 100 mls/hr IVPB Q8H [facility] Last Admin: 09/19/17 18:27 Dose: 100 mls/hr Micafungin Sodium 100 mg/ (Sodium Chloride) 100 mls @ 100 mls/hr IV Q24H [facility] Last Admin: 09/19/17 20:12 Dose: 100 mls/hr Insulin Aspart (Novolog) 0 unit SC ACHS [facility] PRN Reason: Protocol Last Admin: 09/19/17 17:18 Dose: Not Given Losartan Potassium (Cozaar) 50 mg PO DAILY [facility] Last Admin: 09/19/17 10:27 Dose: 50 mg Methylprednisolone (Solu-Medrol) 40 mg IVP Q12 [facility] Last Admin: 09/19/17 10:27 Dose: 40 mg Metoprolol Tartrate (Lopressor) 50 mg PO BID [facility] Last Admin: 09/19/17 18:29 Dose: 50 mg Pantoprazole Sodium (Protonix Ec Tab) 40 mg PO DAILY [facility] Last Admin: 09/19/17 10:27 Dose: 40 mg Spironolactone (Aldactone) 25 mg PO DAILY [facility] Last Admin: 09/19/17 10:26 Dose: 25 mg - Labs Labs: 09/16/17 06:24 09/16/17 06:24 PT 12.6 SECONDS (9.7-12.2) H 08/30/17 23:18 INR 1.1 08/30/17 23:18 APTT 28 SECONDS (21-34) 08/30/17 23:18 Assessment and Plan (1) Respiratory failure Status: Acute (2) Fever Status: Acute (3) Pneumonia Assessment & Plan: S/P EXTUBATION. SPUTUM POSITIVE FOR kLEBSIELLA PNEUMONIA/YEAST. ON iv ANTIBIOTICS/ANTIFUNGAL-mYCAMINE. Status: Acute (4) COPD exacerbation Status: Acute (5) CHF (congestive heart failure) Status: Acute (6) Severe anemia Status: Acute (7) Type II diabetes mellitus Status: Acute (8) History of bilateral mastectomy Status: Acute (9) Candiduria Assessment & Plan: REPEAT URINE CULTURE- -VE GROWTH TO DATE.. pATIENT ON iv mYCAMINE Status: Acute (10) PVD (peripheral vascular disease) Assessment & Plan: No immediate surgical intervention at this time PER VASCULAR SURGERY - will need to be medically optimized prior to any intervention PER dR. Valladares. Status: Acute
[2017-09-20] MEDS: Meropenem 1 GM in Sodium Chloride 0.9% 100 ML IVPB SCH ×3 (02:42→19:52)
[2017-09-20] MEDS: Albuterol-Ipratrop 3 mg / 0.5 (3 ml) UD INH SCH ×4 (02:46→19:47)
--- NOTE | 2017-09-20 07:41 | PN ---
DATE: 09/18/2017 SUBJECTIVE: The patient is improving. Shortness of breath is less. Still in bed and needs to get out of bed. There is no bed available in the floor for several days. The patient would like to continue with physical therapy, bronchodilator, oxygen. Leslie Mak MD
[2017-09-20] MEDS: (Novolog) Insulin Aspart, Recombinant 100 u/ml 10 ml vial SC SCH ×5 (08:09→23:15)
[2017-09-20] MEDS: MethylPREDNISolone 40 mg Vial IVP SCH ×2 (10:25→21:10)
[2017-09-20] MEDS: Pantoprazole 40 mg EC Tab PO SCH (10:25)
--- NOTE | 2017-09-20 11:04 | CP.PCM.PN ---
Subjective - Date & Time of Evaluation Date of Evaluation: 09/20/17 Time of Evaluation: 11:02 - Subjective Subjective: weeke breathing beter less cough afebrile Objective - Vital Signs/Intake and Output Vital Signs (last 24 hours): Temp Pulse Resp BP Pulse Ox 97.3 F L 66 20 145/78 98 09/20/17 07:30 09/20/17 08:41 09/20/17 07:30 09/20/17 07:30 09/20/17 07:30 Intake and Output: 09/20/17 09/20/17 06:59 18:59 Intake Total 440 Output Total 200 Balance 240 - Medications Medications: Current Medications Acetaminophen (Tylenol 650mg/20.3ml Solution Ud) 650 mg PO Q4 PRN PRN Reason: for temperature >101 F Albuterol/Ipratropium (Duoneb 3 Mg/0.5 Mg (3 Ml) Ud) 3 ml INH RQ6 [facility] Last Admin: 09/20/17 07:15 Dose: 3 ml Aspirin (Aspirin Chewable) 81 mg PO DAILY [facility] Last Admin: 09/20/17 10:25 Dose: 81 mg Meropenem 1 gm/ Sodium (Chloride) 100 mls @ 100 mls/hr IVPB Q8H [facility] Last Admin: 09/20/17 10:26 Dose: 100 mls/hr Micafungin Sodium 100 mg/ (Sodium Chloride) 100 mls @ 100 mls/hr IV Q24H [facility] Last Admin: 09/19/17 20:12 Dose: 100 mls/hr Insulin Aspart (Novolog) 0 unit SC ACHS [facility] PRN Reason: Protocol Last Admin: 09/20/17 08:09 Dose: Not Given Losartan Potassium (Cozaar) 50 mg PO DAILY [facility] Last Admin: 09/20/17 10:25 Dose: 50 mg Methylprednisolone (Solu-Medrol) 40 mg IVP Q12 [facility] Last Admin: 09/20/17 10:25 Dose: 40 mg Metoprolol Tartrate (Lopressor) 50 mg PO BID [facility] Last Admin: 09/20/17 10:25 Dose: 50 mg Pantoprazole Sodium (Protonix Ec Tab) 40 mg PO DAILY [facility] Last Admin: 09/20/17 10:25 Dose: 40 mg Spironolactone (Aldactone) 25 mg PO DAILY [facility] Last Admin: 09/20/17 10:25 Dose: 25 mg - Labs Labs: 09/16/17 06:24 09/16/17 06:24 PT 12.6 SECONDS (9.7-12.2) H 08/30/17 23:18 INR 1.1 08/30/17 23:18 APTT 28 SECONDS (21-34) 08/30/17 23:18 - Constitutional Appears: No Acute Distress - Head Exam Head Exam: ATRAUMATIC - Eye Exam Eye Exam: Normal appearance - ENT Exam ENT Exam: Mucous Membranes Moist - Neck Exam Neck Exam: Normal Inspection - Respiratory Exam Respiratory Exam: Decreased Breath Sounds - Cardiovascular Exam Cardiovascular Exam: REGULAR RHYTHM - GI/Abdominal Exam GI & Abdominal Exam: Normal Bowel Sounds - Rectal Exam Rectal Exam: NORMAL INSPECTION - Exam Exam: NORMAL INSPECTION - Back Exam Back Exam: NORMAL INSPECTION - Neurological Exam Neurological Exam: Awake, Oriented x3 - Psychiatric Exam Psychiatric exam: Normal Affect - Skin Skin Exam: Pallor Assessment and Plan - Assessment and Plan (Free Text) Assessment: s/p bilateral pnumonia copd generalised wekness cont as perordes
--- NOTE | 2017-09-20 15:20 | CP.PCM.PN ---
Subjective - Date & Time of Evaluation Date of Evaluation: 09/20/17 Time of Evaluation: 15:15 - Subjective Subjective: Pt lying near flat, comfortable. Repeat echo shows marked improvement in LV EF. LV eF is stil borderline or mildly reduced, with a small region of inferoapical akinesis, but is impressively improved from the study of 09/02/2017. BP was a little high today Objective - Vital Signs/Intake and Output Vital Signs (last 24 hours): Temp Pulse Resp BP Pulse Ox 97.3 F L 66 20 145/78 98 09/20/17 07:30 09/20/17 08:41 09/20/17 07:30 09/20/17 07:30 09/20/17 07:30 Intake and Output: 09/20/17 09/20/17 06:59 18:59 Intake Total 440 400 Output Total 200 400 Balance 240 0 - Medications Medications: Current Medications Acetaminophen (Tylenol 650mg/20.3ml Solution Ud) 650 mg PO Q4 PRN PRN Reason: for temperature >101 F Albuterol/Ipratropium (Duoneb 3 Mg/0.5 Mg (3 Ml) Ud) 3 ml INH RQ6 [facility] Last Admin: 09/20/17 13:15 Dose: 3 ml Aspirin (Aspirin Chewable) 81 mg PO DAILY [facility] Last Admin: 09/20/17 10:25 Dose: 81 mg Meropenem 1 gm/ Sodium (Chloride) 100 mls @ 100 mls/hr IVPB Q8H [facility] Last Admin: 09/20/17 10:26 Dose: 100 mls/hr Micafungin Sodium 100 mg/ (Sodium Chloride) 100 mls @ 100 mls/hr IV Q24H [facility] Last Admin: 09/19/17 20:12 Dose: 100 mls/hr Insulin Aspart (Novolog) 0 unit SC ACHS [facility] PRN Reason: Protocol Last Admin: 09/20/17 11:52 Dose: Not Given Losartan Potassium (Cozaar) 50 mg PO DAILY [facility] Last Admin: 09/20/17 10:25 Dose: 50 mg Methylprednisolone (Solu-Medrol) 40 mg IVP Q12 [facility] Last Admin: 09/20/17 10:25 Dose: 40 mg Metoprolol Tartrate (Lopressor) 50 mg PO BID [facility] Last Admin: 09/20/17 10:25 Dose: 50 mg Pantoprazole Sodium (Protonix Ec Tab) 40 mg PO DAILY [facility] Last Admin: 09/20/17 10:25 Dose: 40 mg Spironolactone (Aldactone) 25 mg PO DAILY [facility] Last Admin: 09/20/17 10:25 Dose: 25 mg - Labs Labs: 09/16/17 06:24 09/16/17 06:24 PT 12.6 SECONDS (9.7-12.2) H 08/30/17 23:18 INR 1.1 08/30/17 23:18 APTT 28 SECONDS (21-34) 08/30/17 23:18 - Constitutional Appears: Well, Cachectic, Chronically Ill - Eye Exam Eye Exam: EOMI - ENT Exam ENT Exam: Mucous Membranes Moist - Neck Exam Neck Exam: Full ROM - Respiratory Exam Respiratory Exam: Clear to Ausculation Bilateral - Cardiovascular Exam Cardiovascular Exam: REGULAR RHYTHM - GI/Abdominal Exam GI & Abdominal Exam: Normal Bowel Sounds - Extremities Exam Extremities Exam: Full ROM - Back Exam Back Exam: NORMAL INSPECTION - Neurological Exam Neurological Exam: Alert, Normal Gait - Psychiatric Exam Psychiatric exam: Flat Affect - Skin Skin Exam: Pallor Assessment and Plan - Assessment and Plan (Free Text) Assessment: 1. 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 LV EF has now improved. 2, Increase losartan to bid. 3. No recurrent afib, seen only when intubated 4. PAD: chronic. WIll need pre-op assessment with either cath or stress prior to any clearance for revascularization, Dr Pulido says not emergent at this time.
[2017-09-20] MEDS: Micafungin 100 MG in Sodium Chloride 0.9% 100 ML IV SCH (21:05)
--- NOTE | 2017-09-20 23:17 | CARD ---
APPROVED REPORT EXAM: LIMITED Two-dimensional and M-mode echocardiogram. Other Information Quality : GoodRhythm : INDICATION LV Function:Systolic Congestive Heart Failure COPD RISK FACTORS Diabetes 2D DIMENSIONS IVSd0.8 (0.7-1.1cm)LVDd4.6 (3.9-5.9cm) PWd0.9 (0.7-1.1cm)LVDs3.0 (2.5-4.0cm) FS (%) 34.2 %LVEF (%)50.0 (>50%) M-Mode DIMENSIONS IVSd0.79 (0.7-1.1cm)LVDd4.86 (4.0-5.6cm) PWd0.98 (0.7-1.1cm)FS (%) 31 % LVDs3.34 (2.0-3.8cm) Mitral Valve E/A ratio0.0 TDI E/Lateral E'0.0E/Medial E'0.0 LEFT VENTRICLE The left ventricle is normal size. There is normal left ventricular wall thickness. Left ventricle systolic function is normal. The Ejection Fraction is 50-55%. There is normal LV segmental wall motion. The left ventricular diastolic function is normal. RIGHT VENTRICLE The right ventricle is normal size. There is normal right ventricular wall thickness. The right ventricular systolic function is normal. ATRIA The left atrium size is normal. The right atrium size is normal. The thickening of interatrial septum suggests lipomatous hypertrophy. AORTIC VALVE The aortic valve is normal in structure. MITRAL VALVE The mitral valve is normal in structure. TRICUSPID VALVE The tricuspid valve is normal in structure. PULMONIC VALVE The pulmonic valve is not well visualized. <Conclusion> NO DOPPLER STUDIES DONE. Left ventricle systolic function is normal. The Ejection Fraction is 50-55%. The thickening of interatrial septum suggests lipomatous hypertrophy. The mitral valve is normal in structure. The tricuspid valve is normal in structure. The aortic valve is normal in structure.
[2017-09-21] MEDS: Albuterol-Ipratrop 3 mg / 0.5 (3 ml) UD INH SCH ×4 (01:09→20:58)
[2017-09-21] MEDS: Meropenem 1 GM in Sodium Chloride 0.9% 100 ML IVPB SCH ×3 (03:34→18:46)
[2017-09-21] MEDS: (Novolog) Insulin Aspart, Recombinant 100 u/ml 10 ml vial SC SCH ×4 (07:38→23:25)
[2017-09-21 08:13] LABS: BASO % 0.2 % (0.0-2.0); EOS % 0.1 % (0.0-4.0); HEMOGLOBIN 10.7 g/dL (11.0-16.0); LYMPH # 0.7 K/uL (1.0-4.3); LYMPH % 5.7 % (20.0-40.0); MEAN CELL VOLUME 76.9 fL (81.0-99.0); MEAN CORPUSCULAR HEMOGLOBIN 24.2 pg (27.0-31.0); MEAN CORPUSCULAR HGB CONC 31.4 g/dL (33.0-37.0); MEAN PLATELET VOLUME 9.4 fL (7.2-11.7); MONO # 0.7 K/uL (0.0-0.8); MONO % 6.1 % (0.0-10.0); NEUT # 10.6 K/uL (1.8-7.0); NEUT % 87.9 % (50.0-75.0); PLATELET COUNT 223 K/uL (130-400); RBC 4.42 Mil/uL (3.80-5.20); RED CELL DISTRIBUTION WIDTH 29.2 % (11.5-14.5); WHITE BLOOD COUNT 12.1 K/uL (4.8-10.8)
[2017-09-21 08:31] LABS: ALB/GLOB RATIO 1.3 (1.0-2.1); ALT/SGPT 42 U/L (9-52); AST/SGOT 29 U/L (14-36); BLOOD UREA NITROGEN 12 mg/dL (7-17); GFR AFRICAN-AMERICAN > 60; GFR NON-AFRICAN AMERICAN > 60
[2017-09-21 09:13] LABS: ANISOCYTOSIS SLIGHT; LYMPHOCYTE 5 % (20-40); MONOCYTE 6 % (0-10); NEUTROPHIL 89 % (50-75); PLATELET ESTIMATE NORMAL (NORMAL); POIKILOCYTOSIS SLIGHT; TOTAL CELLS COUNTED 100
[2017-09-21 09:14] LABS: HYPOCHROMIC SLIGHT; OVALOCYTES SLIGHT
[2017-09-21] MEDS: Pantoprazole 40 mg EC Tab PO SCH (10:19)
[2017-09-21] MEDS: MethylPREDNISolone 40 mg Vial IVP SCH ×2 (10:20→21:21)
--- NOTE | 2017-09-21 15:15 | CP.PCM.PN ---
Subjective - Date & Time of Evaluation Date of Evaluation: 09/21/17 Time of Evaluation: 15:12 - Subjective Subjective: still horseness of voice weeke no cough less sob Objective - Vital Signs/Intake and Output Vital Signs (last 24 hours): Temp Pulse Resp BP Pulse Ox 97.5 F L 98 H 20 133/82 98 09/21/17 07:25 09/21/17 07:25 09/21/17 07:25 09/21/17 07:25 09/21/17 07:25 Intake and Output: 09/21/17 09/21/17 06:59 18:59 Intake Total 1020 Output Total 600 350 Balance 420 -350 - Medications Medications: Current Medications Acetaminophen (Tylenol 650mg/20.3ml Solution Ud) 650 mg PO Q4 PRN PRN Reason: for temperature >101 F Albuterol/Ipratropium (Duoneb 3 Mg/0.5 Mg (3 Ml) Ud) 3 ml INH RQ6 [facility] Last Admin: 09/21/17 13:17 Dose: 3 ml Aspirin (Aspirin Chewable) 81 mg PO DAILY [facility] Last Admin: 09/21/17 10:19 Dose: 81 mg Meropenem 1 gm/ Sodium (Chloride) 100 mls @ 100 mls/hr IVPB Q8H [facility] Last Admin: 09/21/17 10:20 Dose: 100 mls/hr Micafungin Sodium 100 mg/ (Sodium Chloride) 100 mls @ 100 mls/hr IV Q24H [facility] Last Admin: 09/20/17 21:05 Dose: 100 mls/hr Insulin Aspart (Novolog) 0 unit SC ACHS [facility] PRN Reason: Protocol Last Admin: 09/21/17 13:04 Dose: Not Given Losartan Potassium (Cozaar) 50 mg PO DAILY [facility] Last Admin: 09/21/17 10:19 Dose: 50 mg Methylprednisolone (Solu-Medrol) 40 mg IVP Q12 [facility] Last Admin: 09/21/17 10:20 Dose: 40 mg Metoprolol Tartrate (Lopressor) 50 mg PO BID [facility] Last Admin: 09/21/17 10:19 Dose: 50 mg Pantoprazole Sodium (Protonix Ec Tab) 40 mg PO DAILY [facility] Last Admin: 09/21/17 10:19 Dose: 40 mg Spironolactone (Aldactone) 25 mg PO DAILY [facility] Last Admin: 09/21/17 10:19 Dose: 25 mg - Labs Labs: 09/21/17 08:05 09/21/17 08:05 PT 12.6 SECONDS (9.7-12.2) H 08/30/17 23:18 INR 1.1 08/30/17 23:18 APTT 28 SECONDS (21-34) 08/30/17 23:18 - Constitutional Appears: Non-toxic - Head Exam Head Exam: NORMAL INSPECTION - Eye Exam Eye Exam: Normal appearance Pupil Exam: NORMAL ACCOMODATION - ENT Exam ENT Exam: Normal Exam - Neck Exam Neck Exam: Full ROM - Respiratory Exam Respiratory Exam: Decreased Breath Sounds - Cardiovascular Exam Cardiovascular Exam: REGULAR RHYTHM - GI/Abdominal Exam GI & Abdominal Exam: Normal Bowel Sounds - Rectal Exam Rectal Exam: NORMAL INSPECTION - Extremities Exam Extremities Exam: Normal Inspection - Back Exam Back Exam: NORMAL INSPECTION - Neurological Exam Neurological Exam: Awake, Oriented x3 - Psychiatric Exam Psychiatric exam: Normal Affect - Skin Skin Exam: Pallor Assessment and Plan - Assessment and Plan (Free Text) Assessment: resp f improved copd s/p pnumonia sepses cont antibiotic aneamia Plan: may go to [facility] rehab
--- NOTE | 2017-09-21 17:16 | CP.PCM.PN ---
Subjective - Date & Time of Evaluation Date of Evaluation: 09/21/17 Time of Evaluation: 17:15 - Subjective Subjective: PATIENT WAS ADMITTED PNA/ ANEMIA AND COPD DENIES CHEST PAIN OR SOB DISCUSS WITH DR MCDANIEL WHO CLEAR HER ON ABX DISCUSS WITH DR LUZ WHO AGREE TO DC TO [facility]/ PENDING AUTH Objective - Vital Signs/Intake and Output Vital Signs (last 24 hours): Temp Pulse Resp BP Pulse Ox 97.2 F L 75 18 133/82 95 09/21/17 16:00 09/21/17 16:00 09/21/17 16:00 09/21/17 07:25 09/21/17 16:00 Intake and Output: 09/21/17 09/21/17 06:59 18:59 Intake Total 1020 Output Total 600 350 Balance 420 -350 - Medications Medications: Current Medications Acetaminophen (Tylenol 650mg/20.3ml Solution Ud) 650 mg PO Q4 PRN PRN Reason: for temperature >101 F Albuterol/Ipratropium (Duoneb 3 Mg/0.5 Mg (3 Ml) Ud) 3 ml INH RQ6 [facility] Last Admin: 09/21/17 13:17 Dose: 3 ml Aspirin (Aspirin Chewable) 81 mg PO DAILY [facility] Last Admin: 09/21/17 10:19 Dose: 81 mg Meropenem 1 gm/ Sodium (Chloride) 100 mls @ 100 mls/hr IVPB Q8H [facility] Last Admin: 09/21/17 10:20 Dose: 100 mls/hr Micafungin Sodium 100 mg/ (Sodium Chloride) 100 mls @ 100 mls/hr IV Q24H [facility] Last Admin: 09/20/17 21:05 Dose: 100 mls/hr Insulin Aspart (Novolog) 0 unit SC ACHS [facility] PRN Reason: Protocol Last Admin: 09/21/17 13:04 Dose: Not Given Losartan Potassium (Cozaar) 50 mg PO DAILY [facility] Last Admin: 09/21/17 10:19 Dose: 50 mg Methylprednisolone (Solu-Medrol) 40 mg IVP Q12 [facility] Last Admin: 09/21/17 10:20 Dose: 40 mg Metoprolol Tartrate (Lopressor) 50 mg PO BID [facility] Last Admin: 09/21/17 10:19 Dose: 50 mg Pantoprazole Sodium (Protonix Ec Tab) 40 mg PO DAILY [facility] Last Admin: 09/21/17 10:19 Dose: 40 mg Spironolactone (Aldactone) 25 mg PO DAILY [facility] Last Admin: 09/21/17 10:19 Dose: 25 mg - Labs Labs: 09/21/17 08:05 09/21/17 08:05 PT 12.6 SECONDS (9.7-12.2) H 08/30/17 23:18 INR 1.1 08/30/17 23:18 APTT 28 SECONDS (21-34) 08/30/17 23:18 Assessment and Plan - Assessment and Plan (Free Text) Assessment: PLACE UNDER THE SERVICE OF DR LUZ AT [facility] ---CALL DR LUZ FOR ADMITTING ORDERS FOLLOW UP WITH DR SMITH 1-2 WEEK ---CALL FOR APPOINTMENT FOLLOW UP WITH DR DURÁN 1-2 WEEK ---CALL FOR APPOINTMENT CONTINUE ALL MEDICATION ORDER NEW PRESCRIPTION GIVEN METOPROLOL 50 MG PO BID PER DR PAGAN MEROPENEM 1 G IV Q8H FOR [address] MCDANIEL SPIROLACTONE 25 MG MG PO DIALY PER DR PAGAN LOSARTAN 50 MG PO DAILY PER DR PAGAN ACTIVITY TOLERATED IV LINE CAR PER FACILITY PROTOCOL CALL DR LUZ FOR FURTHER ORDER
[2017-09-21] MEDS: Micafungin 100 MG in Sodium Chloride 0.9% 100 ML IV SCH (21:12)
--- NOTE | 2017-09-21 22:00 | CP.PCM.PN ---
Subjective - Date & Time of Evaluation Date of Evaluation: 09/21/17 Time of Evaluation: 22:00 - Subjective Subjective: CHIEF COMPLAINTS TODAY : AFEBRILE, OFFERS NO COMPLAINTS. LESS HOARSE ROS. HEENT : N. Resp : NO SOB wheezing, cough Cardio : No CP, PND orthopnea GI : No abd. 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 Musculoskel : N Ext. : Pedal pulses WEAK LT. SIDE, no edema or calf pain Derm : N Psych : N. PE. Pt. is AWAKE in no distress V.S As noted in the chart Head ,ear nose,throat and eyes : Normal. Neck : Supple with normal carotids. Lungs: BETTER AERATION BOTH BASES. Heart : S1 & S2 REGULAR . No murmur. Abd : Soft non tender with normal bowel sounds. Neuro : Moves all ext. with no localized deficit. Ext : No edema with intact pulses. Neg. calf tenderness Pedal pulses WEAK LT. SIDE, no edema or calf pain .TOES BLUISH Derm : No rashes or decubitus ulcer. Radiology/Labs . reviewed. Objective - Vital Signs/Intake and Output Vital Signs (last 24 hours): Temp Pulse Resp BP Pulse Ox 97.2 F L 75 18 136/72 95 09/21/17 16:00 09/21/17 16:00 09/21/17 16:00 09/21/17 18:00 09/21/17 16:00 Intake and Output: 09/21/17 09/22/17 18:59 06:59 Output Total 350 Balance -350 - Medications Medications: Current Medications Acetaminophen (Tylenol 650mg/20.3ml Solution Ud) 650 mg PO Q4 PRN PRN Reason: for temperature >101 F Last Admin: 09/21/17 21:23 Dose: 650 mg Albuterol/Ipratropium (Duoneb 3 Mg/0.5 Mg (3 Ml) Ud) 3 ml INH RQ6 [facility] Last Admin: 09/21/17 20:58 Dose: 3 ml Aspirin (Aspirin Chewable) 81 mg PO DAILY [facility] Last Admin: 09/21/17 10:19 Dose: 81 mg Meropenem 1 gm/ Sodium (Chloride) 100 mls @ 100 mls/hr IVPB Q8H [facility] Last Admin: 09/21/17 18:46 Dose: 100 mls/hr Micafungin Sodium 100 mg/ (Sodium Chloride) 100 mls @ 100 mls/hr IV Q24H [facility] Last Admin: 09/21/17 21:12 Dose: 100 mls/hr Insulin Aspart (Novolog) 0 unit SC ACHS [facility] PRN Reason: Protocol Last Admin: 09/21/17 17:35 Dose: Not Given Losartan Potassium (Cozaar) 50 mg PO DAILY [facility] Last Admin: 09/21/17 10:19 Dose: 50 mg Methylprednisolone (Solu-Medrol) 40 mg IVP Q12 [facility] Last Admin: 09/21/17 21:21 Dose: 40 mg Metoprolol Tartrate (Lopressor) 50 mg PO BID [facility] Last Admin: 09/21/17 18:46 Dose: 50 mg Pantoprazole Sodium (Protonix Ec Tab) 40 mg PO DAILY [facility] Last Admin: 09/21/17 10:19 Dose: 40 mg Spironolactone (Aldactone) 25 mg PO DAILY [facility] Last Admin: 09/21/17 10:19 Dose: 25 mg - Labs Labs: 09/21/17 08:05 09/21/17 08:05 PT 12.6 SECONDS (9.7-12.2) H 08/30/17 23:18 INR 1.1 08/30/17 23:18 APTT 28 SECONDS (21-34) 08/30/17 23:18 Assessment and Plan (1) Respiratory failure Assessment & Plan: REMAINS EXTUBATED.. vOICE STILL SLIGHTLY HOARSE. SPUTUM POSITIVE FOR kLEBSIELLA PNEUMONIA/YEAST. CASE DISCUSSED WITH THE STAFF/AND dR. Maddox. DC IV mYCAMINE. CONTINUE iv mERREM X FOR 5 DAYS MORE .PATIENT AWAITING [facility]IL[facility]. Status: Acute (2) Fever Status: Acute (3) Pneumonia Status: Acute (4) COPD exacerbation Status: Acute (5) CHF (congestive heart failure) Status: Acute (6) Severe anemia Status: Acute (7) Type II diabetes mellitus Status: Acute (8) History of bilateral mastectomy Status: Acute (9) Candiduria Assessment & Plan: REPEAT URINE CULTURES NEGATIVE GROWTH. Status: Acute (10) PVD (peripheral vascular disease) Status: Acute
[2017-09-22] MEDS: Albuterol-Ipratrop 3 mg / 0.5 (3 ml) UD INH SCH ×4 (01:26→22:02)
[2017-09-22 03:07] VITALS: RESP 20
[2017-09-22] MEDS: Meropenem 1 GM in Sodium Chloride 0.9% 100 ML IVPB SCH ×2 (03:26→13:00)
[2017-09-22 08:07] VITALS: TEMP 97.9
--- NOTE | 2017-09-22 08:42 | PN ---
DATE: 09/20/2017 HISTORY OF PRESENT ILLNESS: The patient is improving, transferred to the floor, O2, bronchodilators. Leslie Mak MD
--- NOTE | 2017-09-22 08:46 | PN ---
PROCEDURE DATE: Patient getting supportive care, bronchodilators. Advised to get out of bed and participate in physical therapy . Leslie Mak MD
[2017-09-22 09:11] LABS: BASO # 0.1 K/uL (0.0-0.2); BASO % 0.7 % (0.0-2.0); EOS % 0.2 % (0.0-4.0); HEMOGLOBIN 10.8 g/dL (11.0-16.0); LYMPH # 1.2 K/uL (1.0-4.3); LYMPH % 9.7 % (20.0-40.0); MEAN CELL VOLUME 77.7 fL (81.0-99.0); MEAN CORPUSCULAR HEMOGLOBIN 23.6 pg (27.0-31.0); MEAN CORPUSCULAR HGB CONC 30.4 g/dL (33.0-37.0); MEAN PLATELET VOLUME 9.3 fL (7.2-11.7); MONO # 0.9 K/uL (0.0-0.8); MONO % 7.4 % (0.0-10.0); NEUT # 10.1 K/uL (1.8-7.0); PLATELET COUNT 242 K/uL (130-400); RBC 4.59 Mil/uL (3.80-5.20); RED CELL DISTRIBUTION WIDTH 28.4 % (11.5-14.5); WHITE BLOOD COUNT 12.4 K/uL (4.8-10.8)
[2017-09-22] MEDS: (Novolog) Insulin Aspart, Recombinant 100 u/ml 10 ml vial SC SCH ×4 (09:12→21:55)
[2017-09-22 09:33] LABS: ALB/GLOB RATIO 1.1 (1.0-2.1); ALBUMIN 2.9 g/dL (3.5-5.0); ALT/SGPT 38 U/L (9-52); AST/SGOT 28 U/L (14-36); BLOOD UREA NITROGEN 12 mg/dL (7-17); CALCIUM 8.1 mg/dl (8.6-10.4); GFR AFRICAN-AMERICAN > 60; GFR NON-AFRICAN AMERICAN > 60
[2017-09-22 10:08] LABS: ANISOCYTOSIS MODERATE; BANDS 1 % (0-2); HYPOCHROMIC SLIGHT; LYMPHOCYTE 6 % (20-40); MICROCYTOSIS SLIGHT; MONOCYTE 7 % (0-10); NEUTROPHIL 86 % (50-75); PLATELET ESTIMATE NORMAL (NORMAL); POLYCHROMIC SLIGHT; TOTAL CELLS COUNTED 100
[2017-09-22 10:09] LABS: OVALOCYTES SLIGHT; TEARDROP CELLS SLIGHT
[2017-09-22] MEDS: MethylPREDNISolone 40 mg Vial IVP SCH ×2 (10:22→22:07)
[2017-09-22] MEDS: Pantoprazole 40 mg EC Tab PO SCH (10:22)
[2017-09-22] MEDS: Nystatin 100,000 Units/ml Oral Susp 5 ml UD PO SCH ×3 (13:54→22:07)
--- NOTE | 2017-09-22 16:17 | CP.PCM.PN ---
Subjective - Date & Time of Evaluation Date of Evaluation: 09/22/17 Time of Evaluation: 16:17 Objective - Vital Signs/Intake and Output Vital Signs (last 24 hours): Temp Pulse Resp BP Pulse Ox 97.9 F 78 20 130/76 95 09/22/17 07:35 09/22/17 07:35 09/22/17 07:35 09/22/17 07:35 09/22/17 07:35 Intake and Output: 09/22/17 09/22/17 06:59 18:59 Output Total 500 500 Balance -500 -500 - Medications Medications: Current Medications Acetaminophen (Tylenol 650mg/20.3ml Solution Ud) 650 mg PO Q4 PRN PRN Reason: for temperature >101 F Last Admin: 09/21/17 21:23 Dose: 650 mg Albuterol/Ipratropium (Duoneb 3 Mg/0.5 Mg (3 Ml) Ud) 3 ml INH RQ6 [facility] Last Admin: 09/22/17 13:10 Dose: Not Given Aspirin (Aspirin Chewable) 81 mg PO DAILY [facility] Last Admin: 09/22/17 10:22 Dose: 81 mg Meropenem 1 gm/ Sodium (Chloride) 100 mls @ 100 mls/hr IVPB Q12H [facility] Stop: 09/27/17 01:59 Insulin Aspart (Novolog) 0 unit SC ACHS [facility] PRN Reason: Protocol Last Admin: 09/22/17 13:54 Dose: Not Given Losartan Potassium (Cozaar) 50 mg PO DAILY [facility] Last Admin: 09/22/17 10:22 Dose: 50 mg Methylprednisolone (Solu-Medrol) 40 mg IVP Q12 [facility] Last Admin: 09/22/17 10:22 Dose: 40 mg Metoprolol Tartrate (Lopressor) 50 mg PO BID [facility] Last Admin: 09/22/17 10:22 Dose: 50 mg Nystatin (Nystatin Oral Susp) 5 ml PO QID [facility] Last Admin: 09/22/17 13:54 Dose: Not Given Pantoprazole Sodium (Protonix Ec Tab) 40 mg PO DAILY [facility] Last Admin: 09/22/17 10:22 Dose: 40 mg Spironolactone (Aldactone) 25 mg PO DAILY [facility] Last Admin: 09/22/17 10:22 Dose: 25 mg - Labs Labs: 09/22/17 09:09/22/17 09:06 PT 12.6 SECONDS (9.7-12.2) H 08/30/17 23:18 INR 1.1 08/30/17 23:18 APTT 28 SECONDS (21-34) 08/30/17 23:18 Assessment and Plan (1) Respiratory failure Status: Acute (2) Fever Status: Acute (3) Pneumonia Status: Acute (4) COPD exacerbation Status: Acute (5) CHF (congestive heart failure) Status: Acute (6) Severe anemia Status: Acute (7) Type II diabetes mellitus Status: Acute (8) History of bilateral mastectomy Status: Acute (9) Candiduria Status: Acute (10) PVD (peripheral vascular disease) Status: Acute
--- NOTE | 2017-09-22 16:29 | CP.PCM.PN ---
Subjective - Date & Time of Evaluation Date of Evaluation: 09/22/17 Time of Evaluation: 16:26 - Subjective Subjective: pt oob in chair still horseness of voice no cough less sob Objective - Vital Signs/Intake and Output Vital Signs (last 24 hours): Temp Pulse Resp BP Pulse Ox 97.9 F 78 20 130/76 95 09/22/17 07:35 09/22/17 07:35 09/22/17 07:35 09/22/17 07:35 09/22/17 07:35 Intake and Output: 09/22/17 09/22/17 06:59 18:59 Output Total 500 500 Balance -500 -500 - Medications Medications: Current Medications Acetaminophen (Tylenol 650mg/20.3ml Solution Ud) 650 mg PO Q4 PRN PRN Reason: for temperature >101 F Last Admin: 09/21/17 21:23 Dose: 650 mg Albuterol/Ipratropium (Duoneb 3 Mg/0.5 Mg (3 Ml) Ud) 3 ml INH RQ6 [facility] Last Admin: 09/22/17 13:10 Dose: Not Given Aspirin (Aspirin Chewable) 81 mg PO DAILY [facility] Last Admin: 09/22/17 10:22 Dose: 81 mg Meropenem 1 gm/ Sodium (Chloride) 100 mls @ 100 mls/hr IVPB Q12H [facility] Stop: 09/27/17 01:59 Insulin Aspart (Novolog) 0 unit SC ACHS [facility] PRN Reason: Protocol Last Admin: 09/22/17 13:54 Dose: Not Given Losartan Potassium (Cozaar) 50 mg PO DAILY [facility] Last Admin: 09/22/17 10:22 Dose: 50 mg Methylprednisolone (Solu-Medrol) 40 mg IVP Q12 [facility] Last Admin: 09/22/17 10:22 Dose: 40 mg Metoprolol Tartrate (Lopressor) 50 mg PO BID [facility] Last Admin: 09/22/17 10:22 Dose: 50 mg Nystatin (Nystatin Oral Susp) 5 ml PO QID [facility] Last Admin: 09/22/17 13:54 Dose: Not Given Pantoprazole Sodium (Protonix Ec Tab) 40 mg PO DAILY [facility] Last Admin: 09/22/17 10:22 Dose: 40 mg Spironolactone (Aldactone) 25 mg PO DAILY [facility] Last Admin: 09/22/17 10:22 Dose: 25 mg - Labs Labs: 09/22/17 09:06 09/22/17 09:06 PT 12.6 SECONDS (9.7-12.2) H 08/30/17 23:18 INR 1.1 08/30/17 23:18 APTT 28 SECONDS (21-34) 08/30/17 23:18 - Constitutional Appears: Non-toxic - Head Exam Head Exam: NORMAL INSPECTION - Eye Exam Eye Exam: Normal appearance Pupil Exam: NORMAL ACCOMODATION - ENT Exam ENT Exam: Mucous Membranes Moist - Neck Exam Neck Exam: Full ROM - Respiratory Exam Respiratory Exam: Decreased Breath Sounds, NORMAL BREATHING PATTERN - Cardiovascular Exam Cardiovascular Exam: REGULAR RHYTHM - GI/Abdominal Exam GI & Abdominal Exam: Normal Bowel Sounds - Extremities Exam Extremities Exam: Normal Inspection - Back Exam Back Exam: NORMAL INSPECTION - Neurological Exam Neurological Exam: Alert, Oriented x3 - Psychiatric Exam Psychiatric exam: Normal Affect - Skin Skin Exam: Pallor Assessment and Plan - Assessment and Plan (Free Text) Assessment: s/p resp faoliur copd sepses aneamia generalised weekness Plan: cont antoibiotics davi few days and transfer to [facility]
[2017-09-22 17:09] VITALS: BP 125/78; PULSE 83; O2SAT 96
[2017-09-23] MEDS ORDERED: Meropenem 1 GM in Sodium Chloride 0.9% 100 ML IVPB SCH (01:00)
--- NOTE | 2017-09-23 07:38 | PN ---
DATE: 09/22/2017 SUBJECTIVE: The patient is improving, voice slightly horse, supportive care. Continue treatment. Leslie Mak MD
== END 2017-09-22 23:09 | DRG 207 ==
LOC: C.ER 20:55 → C.9E 23:53 → C.5S 08-31 17:03 → C.9I 08-31 21:35 → C.5S 09-19 16:17
PROVIDERS: ADMIT Internal Medicine; ATTEND Internal Medicine
PROC: 30233N1 Transfusion of Nonautologous Red Blood Cells into Peripheral Vein, Percutaneous Approach (ICD-10-PCS; 2017-08-31)
PROC: 5A09357 Assistance with Respiratory Ventilation, Less than 24 Consecutive Hours, Continuous Positive Airway Pressure (ICD-10-PCS; 2017-08-31)
PROC: 5A1955Z Respiratory Ventilation, Greater than 96 Consecutive Hours (ICD-10-PCS; principal; 2017-09-01)
PROC: 0BH18EZ Insertion of Endotracheal Airway into Trachea, Via Natural or Artificial Opening Endoscopic (ICD-10-PCS; 2017-09-01)
PROC: 3E0G76Z Introduction of Nutritional Substance into Upper GI, Via Natural or Artificial Opening (ICD-10-PCS; 2017-09-05)
PROC: 5A09557 Assistance with Respiratory Ventilation, Greater than 96 Consecutive Hours, Continuous Positive Airway Pressure (ICD-10-PCS; 2017-09-09)
DX: J18.9 Pneumonia, unspecified organism (principal); J44.0 Chronic obstructive pulmonary disease with (acute) lower respiratory infection; J96.01 Acute respiratory failure with hypoxia; J96.02 Acute respiratory failure with hypercapnia; A41.59 Other Gram-negative sepsis; E11.42 Type 2 diabetes mellitus with diabetic polyneuropathy; E11.22 Type 2 diabetes mellitus with diabetic chronic kidney disease; E87.0 Hyperosmolality and hypernatremia; E87.2 Acidosis; E11.51 Type 2 diabetes mellitus with diabetic peripheral angiopathy without gangrene; I48.91 Unspecified atrial fibrillation; I47.1 Supraventricular tachycardia; B37.49 Other urogenital candidiasis; I13.0 Hypertensive heart and chronic kidney disease with heart failure and stage 1 through stage 4 chronic kidney disease, or unspecified chronic kidney disease; I50.30 Unspecified diastolic (congestive) heart failure; I42.9 Cardiomyopathy, unspecified; J44.1 Chronic obstructive pulmonary disease with (acute) exacerbation; N18.9 Chronic kidney disease, unspecified; K21.9 Gastro-esophageal reflux disease without esophagitis; I25.10 Atherosclerotic heart disease of native coronary artery without angina pectoris; D64.9 Anemia, unspecified; E87.6 Hypokalemia; F41.9 Anxiety disorder, unspecified; Z99.81 Dependence on supplemental oxygen; Z87.891 Personal history of nicotine dependence; Z90.13 Acquired absence of bilateral breasts and nipples; Z85.3 Personal history of malignant neoplasm of breast; Z95.1 Presence of aortocoronary bypass graft; Z79.899 Other long term (current) drug therapy; Z79.4 Long term (current) use of insulin; Z79.82 Long term (current) use of aspirin

== ENCOUNTER 2017-10-15 21:24 | Inpatient (IN) | payer OTHER, MEDICARE ==
[2017-10-15 21:32] VITALS: BMI 18.8
[2017-10-15] MEDS ORDERED: Vancomycin 1 gm/NS 200 ml 1 GM/200 ML BAG IVPB STA (21:41)
[2017-10-15] MEDS ORDERED: Piperacill/Tazo 3.375gm in Dex 3.375 GM/50 ML BAG IV STA (21:41)
--- NOTE | 2017-10-15 21:47 | C.PDOC ---
History Of Present Illness 72 y/o female brought to the emergency department from [facility] for shortness of breath, worsening over the past 3 days. Per EMS patient was evaluated by Dr. Chi at [facility] for the same, and Lasix was ordered but [facility] was unable to administer IV drug. [facility] called EMS for increasing respiratory distress. Patient denies any focal pain. Of note, patient was admitted in July for pneumonia. (+) Full code LIMITED DUE TO CLIN COND PER EMS, PT FROM [facility] FOR SOB SINCE TODAY. EVAL BY DR CHI @ [facility] FOR SAME, ORDERED LASIX BUT [facility] UNABLE TO GIVE IV DRUGS. CALLED EMS FOR INCR RESP DISTRESS. PT STATES INCR SOB X 3 DAYS. DENIES FOCAL PAIN. ADMITTED 07/2017 FOR PNA. +FULL CODE ROS LIMITED EXAM MOD DIST LUNGS TACHYPNIC, B/L COURSE RHONCHI +RETRACTIONS CV RRR SINUS TACH ABD NEG NO EDEMA NEURO NO GROSS FOCAL DEF, APPROPRIATE AND INTERACTIVE LIMITED VERBAL COMMUNICATION DUE TO RESP DIST REMAINDER NEG MDM ECHO REPORT 08/2017 REVIEWED. Time Seen by Provider: 10/15/17 21:36 Chief Complaint (Nursing): Shortness Of Breath History Per: Patient History/Exam Limitations: clinical condition Onset/Duration Of Symptoms: Days (x3) Current Symptoms Are (Timing): Still Present Past Medical History Reviewed: Historical Data, Nursing Documentation, Vital Signs Vital Signs: Last Vital Signs Temp 101.0 F H 10/15/17 21:32 Pulse 122 H 10/15/17 22:18 Resp 22 10/15/17 22:27 BP 111/62 10/15/17 22:18 Pulse Ox 96 10/15/17 22:45 - Medical History PMH: Anxiety, Asthma, CHF, COPD (emphysema), Diabetes, Emphysema Denies: Chronic Kidney Disease - [facility] Procedures ASSISTANCE WITH RESPIRATORY VENTILATION, <24 HRS, CPAP (08/30/17) ASSISTANCE WITH RESPIRATORY VENTILATION, >96 HRS, CPAP (08/30/17) CONTRAST AORTOGRAM (12/16/13) CORONAR ARTERIOGR-2 CATH (12/16/13) INSERTION OF ENDOTRACHEAL AIRWAY INTO TRACHEA, ENDO (08/30/17) INTRODUCTION OF NUTRITIONAL INTO UP GI, VIA OPENING (08/30/17) LEFT HEART CARDIAC CATH (12/16/13) LT HEART ANGIOCARDIOGRAM (12/16/13) PACKED CELL TRANSFUSION (12/16/13) RESPIRATORY VENTILATION, GREATER THAN 96 CONSECUTIVE HOURS (08/30/17) TRANSFUSE NONAUT RED BLOOD CELLS IN PERIPH VEIN, PERC (08/30/17) Family History: States: No Known Family Hx - Social History Hx Tobacco Use: No (quit 8 years ago) Hx Alcohol Use: Yes (Quit 10 yrs ago) Hx Substance Use: No - Immunization History Hx Tetanus Toxoid Vaccination: No Hx Influenza Vaccination: Yes Hx Pneumococcal Vaccination: Yes Review Of Systems Review Of Systems: ROS cannot be obtained secondary to pt's inabilty to answer questions. Physical Exam - Physical Exam Appears: In Acute Distress (moderate) Skin: Normal Color, Warm, Dry Head: Atraumatic, Normacephalic Eye(s): bilateral: Normal Inspection, PERRL, EOMI Nose: Normal Neck: Normal ROM, Supple Chest: Symmetrical Cardiovascular: Rhythm Regular (and tachycardic) Respiratory: Rhonchi (Bilateral coarse rhonchi and retractions), Other ( Tachypnic) Gastrointestinal/Abdominal: Soft, No Tenderness, No Distention Back: Normal Inspection, No Vertebral Tenderness Extremity: Bilateral: Atraumatic, No Pedal Edema, Normal Color And Temperature Pulses: Left Dorsalis Pedis: Normal, Right Dorsalis Pedis: Normal Neurological/Psych: Normal Speech (Appropriate and interactive, limited verbal communication due to respiratory distress), No Other (gross focal deficit) ED Course And Treatment - Laboratory Results Result Diagrams: 10/15/17 21:55 10/15/17 21:55 ECG: Interpreted By Ks ECG Rhythm: Sinus Tachycardia ECG Interpretation: Abnormal Interpretation Of ECG: LIMITED DUE TO ARTIFACT Rate From EC O2 Sat by Pulse Oximetry: 96 (NC) Pulse Ox Interpretation: Normal - Radiology CXR: Interpreted by Me CXR Interpretation: Yes: Infiltrates (RUL COMPARED TO PRIOR) Progress - Re-Evaluation Re-evaluation Note: 10/15/17 22:00 D/W DR CHI AWARE OF ER FINDINGS WILL ADMIT. 10/15/17 22:45 APPEARS IMPROVED COMPARED TO INITIAL, ON VAPOTHERM. PENDING ICU CALLBACK FOR EVAL 10/15/17 22:48 D/W DR DUKES C/F ICU AWARE OF ER FINDINGS PT STABLE FOR TELEMETRY. - Data Reviewed Data Reviewed: Lab, Diagnostic imaging, EKG, Old records - Critical Care Citical Care: Excluding Proc Time Critical Care Time: 120 minutes - Continuity of Care Discussed patient case with:: Patient, Family-HIPPA compliant, PMD Medical Decision Making Medical Decision Making: ECHO REPORT 09/19/2017 REVIEWED: Impression: 1. No Doppler studies done 2. Left ventricle systolic function is normal 3. The Ejection Fraction is 50-55% 4. The thickening of interatrial septum suggests lipomatous hypertrophy 5. The mitral valve is normal in structure 6. The tricuspid valve is normal in structure 7. The aortic valve is normal in structure Time: 21:41 Initial Plan: * EKG * ABG * Pro-BNP * CMP * Troponin I * CBC * Chest x-ray * Blood culture * Urine culture * Influenza A B * Urinalysis * 2 L of O2 * Tylenol 650 mg CA * Vancomycin IVPB * Zosyn IV Disposition Counseled Patient/Family Regarding: Studies Performed, Diagnosis - Disposition Disposition: HOSPITALIZED Disposition Time: 22:02 Condition: STABLE Forms: [facility] ([place] Citizen) - Clinical Impression Clinical Impression: Acute CHF, Pneumonia - Scribe Statement The provider has reviewed the documentation as recorded by the Brandy Lou Provider Attestation: All medical record entries made by the Brandy were at my direction and personally dictated by me. I have reviewed the chart and agree that the record accurately reflects my personal performance of the history, physical exam, medical decision making, and the department course for this patient. I have also personally directed, reviewed, and agree with the discharge instructions and disposition. Decision To Admit - Pt Status Changed To: Hospital Disposition Of: Inpatient - Admit Certification Admit to Inpatient:: After my assessment, the patient will require hospitalization for at least two midnights. This is because of the severity of symptoms shown, intensity of services needed, and/or the medical risk in this patient being treated as an outpatient. - InPatient: Physician Admission Certification: I certify that this patient requires 2 or more midnights of care for the following reason:: SEE NOTE - . Bed Request Type: Telemetry Admitting Physician: Vernon Chi Patient Diagnosis: Acute CHF, Pneumonia
[2017-10-15 21:58] LABS: BASO # 0.1 K/uL (0.0-0.2); BASO % 0.2 % (0.0-2.0); HEMOGLOBIN 9.9 g/dL (11.0-16.0); LYMPH # 1.6 K/uL (1.0-4.3); LYMPH % 7.1 % (20.0-40.0); MEAN CORPUSCULAR HEMOGLOBIN 24.7 pg (27.0-31.0); MEAN CORPUSCULAR HGB CONC 31.3 g/dL (33.0-37.0); MEAN PLATELET VOLUME 7.8 fL (7.2-11.7); MONO # 1.5 K/uL (0.0-0.8); MONO % 6.6 % (0.0-10.0); NEUT % 86.1 % (50.0-75.0); NRBC % 0.1 % (0.0-2.0); PLATELET COUNT 573 K/uL (130-400); RBC 3.99 Mil/uL (3.80-5.20); RED CELL DISTRIBUTION WIDTH 24.2 % (11.5-14.5); WHITE BLOOD COUNT 22.1 K/uL (4.8-10.8)
[2017-10-15] MEDS ORDERED: Piperacillin/Tazobact 3.375 gm 100 ML IVPB ONE (21:58)
[2017-10-15 22:07] LABS: ABG ALLEN TEST POS; ARTERIAL BLOOD GAS HCO3 33.5 mmol/L (21-28); ARTERIAL BLOOD GAS O2 SAT 100.2 % (95-98); ARTERIAL BLOOD GAS PCO2 50 mm/Hg (35-45); ARTERIAL BLOOD GAS PH 7.47 (7.35-7.45); ARTERIAL BLOOD GAS PO2 114 mm/Hg (80-100); ARTERIAL BLOOD GAS TCO2 37.9 mmol/L (22-28)
[2017-10-15 22:13] LABS: ALB/GLOB RATIO 0.7 (1.0-2.1); ALBUMIN 2.7 g/dL (3.5-5.0); ALT/SGPT 33 U/L (9-52); AST/SGOT 20 U/L (14-36); BLOOD UREA NITROGEN 19 mg/dL (7-17); CALCIUM 8.5 mg/dl (8.6-10.4); GFR AFRICAN-AMERICAN > 60; GFR NON-AFRICAN AMERICAN > 60
[2017-10-15 22:27] LABS: LARGE PLATELETS PRESENT; LYMPHOCYTE 10 % (20-40); MONOCYTE 3 % (0-10); NEUTROPHIL 87 % (50-75); PLATELET ESTIMATE INCREASED (NORMAL); TOTAL CELLS COUNTED 100
[2017-10-15 22:32] LABS: B-TYPE NATRIURETIC PEPTIDE 6810 pg/mL (0-900)
[2017-10-15 23:17] LABS: URINE BILIRUBIN NEGATIVE (NEGATIVE); URINE BLOOD NEGATIVE (NEGATIVE); URINE CLARITY Clear (Clear); URINE COLOR Yellow (YELLOW); URINE GLUCOSE (UA) NORMAL (Normal); URINE LEUKOCYTE ESTERASE NEG Leu/uL (Negative); URINE PROTEIN NEGATIVE (NEGATIVE); URINE UROBILINOGEN NORMAL mg/dL (0.2-1.0)
[2017-10-15] MEDS ORDERED: Iohexol 350mg/ml 100 ML ONE (23:56)
[2017-10-16] MEDS ORDERED: Heparin25000 units/250ml 1/2NS 25,000 UNITS/250 ML BAG IV PRN (00:22)
--- NOTE | 2017-10-16 01:20 | CT ---
EXAM: CT Angiography Chest With Intravenous Contrast EXAM DATE/TIME: 10/15/2017 11:44 PM CLINICAL HISTORY: 72 years old, female; Signs and symptoms; Shortness of breath; Additional info: SOB, hypoxia TECHNIQUE: Axial computed tomographic angiography images of the chest with intravenous contrast using pulmonary embolism protocol. All CT scans at this facility use one or more dose reduction techniques, viz.: automated exposure control; ma/kV adjustment per patient size (including targeted exams where dose is matched to indication; i.e. head); or iterative reconstruction technique. MIP reconstructed images were created and reviewed. Coronal and sagittal reformatted images were created and reviewed. CONTRAST: 10 mL of OMNI 350 administered intravenously. COMPARISON: CT - ANGIOGRAPHY ABD ILEOFEM RUNOFF 2017-09-15 16:42 FINDINGS: There are emboli in the right main pulmonary artery propagating into branches supplying the upper, mid, and lower lungs (series 2, images 113 - 153). There are emboli in lower lobe branches of the left pulmonary artery (series 2 images 147-155). There is a pleural-based area of consolidation in the right upper lung measuring approximately 2 cm in diameter. Given the presence of emboli, this may represent an infarct. Neoplasm would also certainly be in the differential diagnosis as would infectious, inflammatory, and atelectatic etiologies. There is left lower lung consolidation at least partially atelectatic in etiology. There are scattered ill-defined opacities and small areas of consolidation throughout the lungs bilaterally only some of which are likely chronic. Developing infectious/inflammatory process would be possible as would early developing underlying lesions and followup is recommended to assess for stability. No aortic dissection or aneurysm. No pleural or pericardial effussions. Round 1.5 cm hypoattenuating area in the right thyroid lobe Emphysematous changes are present in the upper lungs. IMPRESSION: Extensive right-sided pulmonary emboli as discussed above. Pulmonary emboli in lower lobe branches of the left pulmonary artery. Pleural-based consolidation posterior right upper lung concerning for possible infarct or neoplasm. Nonspecific scattered patchy opacities as discussed above for which followup is recommended. Left lower lung consolidation/atelectasis.
[2017-10-16] MEDS ORDERED: Sodium Chloride 0.9% 500 ML IV SCH (02:45)
--- NOTE | 2017-10-16 03:01 | CP.PCM.PN ---
Subjective - Date & Time of Evaluation Date of Evaluation: 10/15/17 Time of Evaluation: 23:30 - Subjective Subjective: Patient was evaluated, being admitted for SOB, hypoxia needing close to 100% fio2, patient at baseline has h/o copd, on 3lit o2 at home recently in rehab on 6lit o2 by nc, h/o CAD, pvd, early dementia, weakness, ambulatory dysfunction at time of eval HR 110/min, reg, 110/60, RR 20/min tmax 101 rectal, spo2 100% on 100% fio2, patient not in acute distress. Labs showing leucocytosis, cxr, scattered interstitial patten infiltrates, creat 0.8. Patient on Eliquis clear reason not known, was hospitalized to [facility] recently was in [place] only for last 2 days. HEENT NE Chest on right more ronchi then left CVS regular PA soft Ext no edema Skin slightly low turgor [employer] awake, not oriented to time and place. CTA reviewed by me major obstructing clot in right mainstem pulm art, and small distal clots, right upper lobe small dense area suspicious for infarct vs tumor , vs infiltrate. Assessment/Plan 72 F with h/o copd, on home o2, [place] resident, CAD, PVD, early dementia, ambulatory dsyfunction came with sob, hypoxia has PE as above. Admit to ICU, heparin drip Venous doppler Emperic abx Patient may need IVC filter as pe despite being on eliquis, may need EKOS if hypotensive, or rv stain. Objective - Vital Signs/Intake and Output Vital Signs (last 24 hours): Temp Pulse Resp BP Pulse Ox 98 F 107 H 15 101/57 L 99 10/16/17 01:05 10/15/17 23:33 10/15/17 23:33 10/15/17 23:33 10/15/17 23:33 - Medications Medications: Current Medications Acetaminophen (Tylenol 325mg Tab) 650 mg PO PRN PRN PRN Reason: PAIN + FEVER Budesonide (Pulmicort Respules) 0.5 mg IH BID [facility] Folic Acid (Folic Acid) 1 mg PO DAILY JENNIFER Furosemide (Lasix) 40 mg IVP DAILY JENNIFER Home Med (Atorvastatin [Lipitor]) 20 mg PO HS JENNIFER Home Med (Multivitamin [Multivitamins]) 1 each PO DAILY [facility] Heparin Sodium/Sodium Chloride (Heparin 82875 Units/250ml 1/2 Normal Saline) 25 ,000 units in 250 mls @ 7.484 mls/hr IV .Q24H PRN; Protocol; 15 UNITS/KG/HR PRN Reason: PROTOCOL Last Admin: 10/16/17 01:32 Dose: 15 units/kg/hr, 7.484 mls/hr Meropenem 500 mg/ Sodium (Chloride) 100 mls @ 100 mls/hr IVPB Q8 JENNIFER PRN Reason: Protocol Sodium Chloride (Sodium Chloride 0.9%) 500 mls @ 500 mls/hr IV .Q1H JENNIFER Montelukast Sodium (Singulair) 10 mg PO DAILY JENNIFER Pantoprazole Sodium (Protonix Ec Tab) 40 mg PO DAILY JENNIFER - Labs Labs: 10/15/17 21:55 10/15/17 21:55
[2017-10-16] MEDS: Meropenem 500 MG in Sodium Chloride 0.9% 100 ML IVPB SCH ×3 (05:00→21:15)
[2017-10-16 06:16] LABS: ABG ALLEN TEST NEG; ARTERIAL BLOOD GAS HCO3 35.8 mmol/L (21-28); ARTERIAL BLOOD GAS HEMOGLOBIN 8.6 g/dL (11.7-17.4); ARTERIAL BLOOD GAS O2 SAT 99.2 % (95-98); ARTERIAL BLOOD GAS PCO2 54 mm/Hg (35-45); ARTERIAL BLOOD GAS PH 7.47 (7.35-7.45); ARTERIAL BLOOD GAS PO2 98 mm/Hg (80-100)
--- NOTE | 2017-10-16 08:27 | RAD ---
PROCEDURE: CHEST RADIOGRAPH, 1 VIEW HISTORY: Pneumonia COMPARISON: 09/11/2017. FINDINGS: LUNGS: The lungs are well inflated. There are chronic changes in both lungs. There is apparent opacity in the right upper lobe. There is mild pulmonary venous congestion. PLEURA: No pneumothorax or pleural fluid seen. CARDIOVASCULAR: The heart is normal in size. Status post CABG. OSSEOUS STRUCTURES: There is an enchondroma in the right proximal humerus. The visualized bones are within normal limits for the patient's age. VISUALIZED UPPER ABDOMEN: Normal. OTHER FINDINGS: None. IMPRESSION: Question of developing right upper lobe pneumonia.
[2017-10-16] MEDS: Budesonide 0.25 mg/2 ml Inhal Susp UD IH SCH ×2 (08:29→20:43)
[2017-10-16 08:49] LABS: BASO % 0.1 % (0.0-2.0); HEMOGLOBIN 8.5 g/dL (11.0-16.0); LYMPH # 1.1 K/uL (1.0-4.3); MEAN CELL VOLUME 79.6 fL (81.0-99.0); MEAN CORPUSCULAR HEMOGLOBIN 24.7 pg (27.0-31.0); MEAN PLATELET VOLUME 8.1 fL (7.2-11.7); NEUT % 88.9 % (50.0-75.0); NRBC % 0.1 % (0.0-2.0); PLATELET COUNT 441 K/uL (130-400); RBC 3.45 Mil/uL (3.80-5.20); RED CELL DISTRIBUTION WIDTH 24.5 % (11.5-14.5); WHITE BLOOD COUNT 19.1 K/uL (4.8-10.8)
[2017-10-16 08:55] LABS: ALB/GLOB RATIO 0.7 (1.0-2.1); ALBUMIN 2.4 g/dL (3.5-5.0); ALT/SGPT 26 U/L (9-52); AST/SGOT 19 U/L (14-36); BLOOD UREA NITROGEN 18 mg/dL (7-17); CALCIUM 7.8 mg/dl (8.6-10.4); GFR AFRICAN-AMERICAN > 60; GFR NON-AFRICAN AMERICAN > 60
[2017-10-16] MEDS ORDERED: Potassium Chloride 20 mEq/15 ml LIQ UD PO ONE ×2 (09:03→10:30)
[2017-10-16 09:20] LABS: BANDS 8 % (0-2); LYMPHOCYTE 5 % (20-40); MONOCYTE 4 % (0-10); NEUTROPHIL 83 % (50-75); PLATELET ESTIMATE SLIGHTLY INCREASED (NORMAL); TOTAL CELLS COUNTED 100
[2017-10-16 09:21] LABS: ANISOCYTOSIS SLIGHT
[2017-10-16 09:22] LABS: HYPOCHROMIC SLIGHT; OVALOCYTES SLIGHT; POIKILOCYTOSIS SLIGHT; POLYCHROMIC SLIGHT
[2017-10-16 09:24] LABS: BURR CELLS SLIGHT; MICROCYTOSIS SLIGHT
[2017-10-16 09:37] LABS: INR 2.6; PROTHROMBIN TIME 31.2 SECONDS (9.7-12.2)
[2017-10-16] MEDS: Pantoprazole 40 mg EC Tab PO SCH (10:30)
[2017-10-16] MEDS: Multiple Vitamins Tab PO SCH (10:30)
--- NOTE | 2017-10-16 15:08 | CP.PCM.HP ---
History of Present Illness - History of Present Illness History of Present Illness: COMPREHENSIVE HISTORY & PHYSICAL EXAM PT WAS TRANSFERRED [facility] DUE TO ACUTE CHF PT WAS RECENTLY D/[facility] FROM [facility] . REVIEW OF CHART SUGGESTED HOSPITAL AQUIRED PNEUMONIA , ?CVA , RESP. FAILRE . THE CHART WAS INCOMPLETE WITHIN 48 HRS OF DISCHARGE PT WAS GETTING PROGRESSIVELY SOB WITH ADB. BREATHING . PT HAD BOTH LUNGS RALES AND WAS TRANSFERRED TO IN ER , CXR SHOWED CHF WITH BNP 6500. CT CHEST SHOWED PULM. EMBOLI IN R PULMONARY MAIN TRUNK AND LLG . THERE IS ALSO SUGGESTIVE OF PULM INFARCT PT ALSO HAD FEVER OF 101 F PAST HIST. COPD/PVD SEVERE / CHF, CAD WITH 2 STENTS /A.FIB ON ELAQUIS/COPD/GI BLEEDING PERSONAL HIST: Smoking. N Alcohol. N Allergy N Travel_- . FAMILY HIST : ROS : Constitutional: Negative for weight change. Eyes: Negative for redness, swelling, itching, discharge, vision changes, blurry vision, double vision, glaucoma, cataracts, Ears: Negative for hearing loss, ringing, , tinnitus, vertigo Nose: Negative for rhinorrhea, stuffiness, sniffing, itching, postnasal drip, discoloration, nasal congestion and epistaxis. Throat: Negative for throat clearing, sore throat, hoarseness, difficulty swallowing and difficulty speaking. Respiratory: WHEEZING/SOB/ Cardiovascular: Negative for chest pain, palpitations, POS orthopnea, PND, Edema of legs, leg cramps, angina, claudication, , irregular heartbeat, Neurology: Negative for irritability, muscle weakness, numbness and tingling, seizures, tremors, migraines, slurred speech, syncope, memory loss, mood changes , recurrent headaches Gastrointestinal: Negative for difficulty swallowing, diarrhea, constipation, black stools, rectal bleeding, nausea, flatulence, reflux, poor appetite, changes in bowel habits, abdominal pain Genitourinary: Negative for frequent urination, hematuria, discharge, incontinence, urinary retention, frequent UTI, Psychiatric: Negative for depression, anxiety/panic, suicidal tendencies, Musculoskeletal: Negative for swollen joints, back pain, , neck pain, morning stiffness of joints, . Skin: Negative for rash, ulcers, itching, dry skin and pigmented lesions. P/E: Constitutional: Appears stated age Head: Normocephalic. Ears: External ear canals patent without inflammation. Tympanic membranes intact with normal light reflex and landmark. Eyes: Pupils are central, bilaterally equal, symmetrical and reacts to light with normal movements and no icterus or pallor. Nose: External nares are patent. Mucosa is pink Mouth-Throat: Good general appearance and condition. No post-pharyngeal/oropharyngeal erythema and tonsillar hypertrophy. Good dental hygiene. Neck-Lymphatic: Neck is supple with normal ROM, no thyromegaly, lymph nodes or masses. JVD is normal with no carotid bruit. Lungs: ZOILA WET RALES Cardiovascular: S1 and S2 are normal with no murmurs, gallops and rub. GI Exam: No hepatomegaly. Abdomen is soft and non-tender. No Organomegaly , masses or hernias are evident and bowel sounds are normal and active. Neurology: Higher function and all cranial nerves intact, with no gross motor or sensory deficit. Superficial and deep reflexes are normal with downwards planters. No cerebellar deficit with normal gait. Musculoskeletal: No tender spots with normal curvature of the spine with no swelling or restricted ROM of the small and large joints. Extremities: Homans sign absent. Intact pulses with no pitting edema, calf tenderness or skin color changes. Skin: No rash, eruptions or abnormal skin pigmentation LAB/RADIOLOGY: ASSESMENT : ACUTE ON CH DIASTOLIC HF , HFpEF CAD, ISCHEMIC HEART DISEASE COPD PNEUMONIA PVD , SEVERE PLAN: CT CHEST SHOWED PULM. EMBOLI TO R MAIN AND LOWER PULM. ARTERY Present on Admission - Present on Admission Any Indicators Present on Admission: No Past Patient History - Past Medical History & Family History Past Medical History?: Yes - Past Social History Smoking Status: Never Smoked - CARDIAC Hx Congestive Heart Failure: Yes - PULMONARY Hx Asthma: Yes Hx Chronic Obstructive Pulmonary Disease (COPD): Yes (emphysema) Hx Emphysema: Yes - NEUROLOGICAL Hx Neurological Disorder: No - HEENT Hx Cataracts: Yes - RENAL Hx Chronic Kidney Disease: No - ENDOCRINE/METABOLIC Hx Diabetes Mellitus Type 2: Yes - HEMATOLOGICAL/ONCOLOGICAL Hx Blood Disorders: No - INTEGUMENTARY Hx Dermatological Problems: No - MUSCULOSKELETAL/RHEUMATOLOGICAL Hx Falls: No - GASTROINTESTINAL Hx Gastrointestinal Disorders: No Hx Gastroesophageal Reflux: Yes - GENITOURINARY/GYNECOLOGICAL Hx Genitourinary Disorders: No - PSYCHIATRIC Hx Anxiety: Yes Hx Substance Use: No - SURGICAL HISTORY Hx Surgeries: Yes Hx Cataract Extraction: Yes Hx Mastectomy: Yes Other/Comment: R mastectomy 8 yrs ago L mastectomy 6 yrs ago - ANESTHESIA Hx Anesthesia: Yes Hx Anesthesia Reactions: No Meds Allergies/Adverse Reactions: Allergies Allergy/AdvReac Type Severity Reaction Status Date / Time adhesive tape Allergy Verified 08/30/17 21:45 latex Allergy Verified 08/30/17 21:45 Results - Vital Signs Recent Vital Signs: Last Vital Signs Temp 98.7 F 10/16/17 12:00 Pulse 114 H 10/16/17 13:14 Resp 38 H 10/16/17 13:14 BP 131/68 10/16/17 13:50 Pulse Ox 98 10/16/17 13:14 - Labs Result Diagrams: 10/16/17 08:17 10/16/17 08:17 Labs: Laboratory Results - last 24 hr 10/15/17 10/15/17 10/15/17 21:55 21:55 22:05 WBC 22.1 H D RBC 3.99 Hgb 9.9 L Hct 31.5 L MCV 79.0 L MCH 24.7 L MCHC 31.3 L RDW 24.2 H Plt Count 573 H D MPV 7.8 Neut % (Auto) 86.1 H Lymph % (Auto) 7.1 L Hart % (Auto) 6.6 Eos % (Auto) 0.0 Baso % (Auto) 0.2 Neut # (Auto) 19.0 H Lymph # (Auto) 1.6 Hart # (Auto) 1.5 H Eos # (Auto) 0.0 Baso # (Auto) 0.1 Neutrophils % (Manual) 87 H Band Neutrophils % Lymphocytes % (Manual) 10 L Monocytes % (Manual) 3 Platelet Estimate Increased H Large Platelets Present Polychromasia Hypochromasia (manual) Poikilocytosis (manual Basophilic Stippling Anisocytosis (manual) Microcytosis (manual) Ovalocytes Roseanne Cells PT INR APTT Puncture Site Lr pCO2 50 H pO2 114 H HCO3 33.5 H ABG pH 7.47 H ABG Total CO2 37.9 H ABG O2 Saturation 100.2 H ABG Base Excess 10.9 H ABG Hemoglobin ABG Carboxyhemoglobin POC ABG HHb (Measured) ABG Methemoglobin Bill Test Pos ABG Potassium 2.9 L A-a O2 Difference 537.0 Respiratory Index 4.7 Hgb O2 Saturation Glucose 116 H Lactate 1.0 Liter Flow 20.0 Vent Mode FiO2 100.0 Sodium 144 145.0 Potassium 3.4 L Chloride 97 L 109.0 H Carbon Dioxide 38 H Anion Gap 13 BUN 19 H Creatinine 0.5 L Est GFR ( Amer) > 60 Est GFR (Non-Af Amer) > 60 Random Glucose 127 H Calcium 8.5 L Phosphorus Magnesium Total Bilirubin 0.4 AST 20 ALT 33 Alkaline Phosphatase 124 Troponin I 0.0260 NT-Pro-B Natriuret Pep 6810 H Total Protein 6.4 Albumin 2.7 L Globulin 3.7 Albumin/Globulin Ratio 0.7 L Procalcitonin Arterial Blood Potassium 2.9 L Urine Color Urine Clarity Urine pH Ur Specific [place] Urine Protein Urine Glucose (UA) Urine Ketones Urine Blood Urine Nitrate Urine Bilirubin Urine Urobilinogen Ur Leukocyte Esterase Urine WBC (Auto) Urine RBC (Auto) Influenza Typ A,B (EIA) 10/15/17 10/15/17 10/16/17 23:12 Unknown 01:47 WBC RBC Hgb Hct MCV MCH MCHC RDW Plt Count MPV Neut % (Auto) Lymph % (Auto) Hart % (Auto) Eos % (Auto) Baso % (Auto) Neut # (Auto) Lymph # (Auto) Hart # (Auto) Eos # (Auto) Baso # (Auto) Neutrophils % (Manual) Band Neutrophils % Lymphocytes % (Manual) Monocytes % (Manual) Platelet Estimate Large Platelets Polychromasia Hypochromasia (manual) Poikilocytosis (manual Basophilic Stippling Anisocytosis (manual) Microcytosis (manual) Ovalocytes Roseanne Cells PT INR APTT 296 H* Puncture Site pCO2 pO2 HCO3 ABG pH ABG Total CO2 ABG O2 Saturation ABG Base Excess ABG Hemoglobin ABG Carboxyhemoglobin POC ABG HHb (Measured) ABG Methemoglobin Bill Test ABG Potassium A-a O2 Difference Respiratory Index Hgb O2 Saturation Glucose Lactate Liter Flow Vent Mode FiO2 Sodium Potassium Chloride Carbon Dioxide Anion Gap BUN Creatinine Est GFR ( Amer) Est GFR (Non-Af Amer) Random Glucose Calcium Phosphorus Magnesium Total Bilirubin AST ALT Alkaline Phosphatase Troponin I NT-Pro-B Natriuret Pep Total Protein Albumin Globulin Albumin/Globulin Ratio Procalcitonin Arterial Blood Potassium Urine Color Yellow Urine Clarity Clear Urine pH 5.0 Ur Specific [place] 1.016 Urine Protein Negative Urine Glucose (UA) Normal Urine Ketones Negative Urine Blood Negative Urine Nitrate Negative Urine Bilirubin Negative Urine Urobilinogen Normal Ur Leukocyte Esterase Neg Urine WBC (Auto) < 1 Urine RBC (Auto) < 1 Influenza Typ A,B (EIA) Negative for flu a/b 10/16/17 10/16/17 10/16/17 06:00 08:17 08:17 WBC 19.1 H RBC 3.45 L Hgb 8.5 L Hct 27.4 L MCV 79.6 L MCH 24.7 L MCHC 31.0 L RDW 24.5 H Plt Count 441 H D MPV 8.1 Neut % (Auto) 88.9 H Lymph % (Auto) 6.0 L Hart % (Auto) 5.0 Eos % (Auto) 0.0 Baso % (Auto) 0.1 Neut # (Auto) 17.0 H Lymph # (Auto) 1.1 Hart # (Auto) 1.0 H Eos # (Auto) 0.0 Baso # (Auto) 0.0 Neutrophils % (Manual) 83 H Band Neutrophils % 8 H Lymphocytes % (Manual) 5 L Monocytes % (Manual) 4 Platelet Estimate Slightly increased H Large Platelets Polychromasia Slight Hypochromasia (manual) Slight Poikilocytosis (manual Slight Basophilic Stippling Slight Anisocytosis (manual) Slight Microcytosis (manual) Slight Ovalocytes Slight Roseanne Cells Slight PT INR APTT Puncture Site Rbracjial pCO2 54 H pO2 98 HCO3 35.8 H ABG pH 7.47 H ABG Total CO2 41.0 H ABG O2 Saturation 99.2 H ABG Base Excess 14.0 H ABG Hemoglobin 8.6 L ABG Carboxyhemoglobin 2.3 H POC ABG HHb (Measured) 0.8 ABG Methemoglobin 0.9 Bill Test Neg ABG Potassium A-a O2 Difference 298.0 Respiratory Index 3.0 Hgb O2 Saturation 95.9 Glucose Lactate Liter Flow 20.0 Vent Mode Hfnc FiO2 65.0 Sodium Potassium Chloride Carbon Dioxide Anion Gap BUN Creatinine Est GFR ( Amer) Est GFR (Non-Af Amer) Random Glucose Calcium Phosphorus Magnesium Total Bilirubin AST ALT Alkaline Phosphatase Troponin I NT-Pro-B Natriuret Pep Total Protein Albumin Globulin Albumin/Globulin Ratio Procalcitonin 0.60 H Arterial Blood Potassium Urine Color Urine Clarity Urine pH Ur Specific [place] Urine Protein Urine Glucose (UA) Urine Ketones Urine Blood Urine Nitrate Urine Bilirubin Urine Urobilinogen Ur Leukocyte Esterase Urine WBC (Auto) Urine RBC (Auto) Influenza Typ A,B (EIA) 10/16/17 10/16/17 08:17 09:26 WBC RBC Hgb Hct MCV MCH MCHC RDW Plt Count MPV Neut % (Auto) Lymph % (Auto) Hart % (Auto) Eos % (Auto) Baso % (Auto) Neut # (Auto) Lymph # (Auto) Hart # (Auto) Eos # (Auto) Baso # (Auto) Neutrophils % (Manual) Band Neutrophils % Lymphocytes % (Manual) Monocytes % (Manual) Platelet Estimate Large Platelets Polychromasia Hypochromasia (manual) Poikilocytosis (manual Basophilic Stippling Anisocytosis (manual) Microcytosis (manual) Ovalocytes [place] Cells PT 31.2 H* INR 2.6 APTT 48 H D Puncture Site pCO2 pO2 HCO3 ABG pH ABG Total CO2 ABG O2 Saturation ABG Base Excess ABG Hemoglobin ABG Carboxyhemoglobin POC ABG HHb (Measured) ABG Methemoglobin Bill Test ABG Potassium A-a O2 Difference Respiratory Index Hgb O2 Saturation Glucose Lactate Liter Flow Vent Mode FiO2 Sodium 145 Potassium 2.9 L Chloride 98 Carbon Dioxide 35 H Anion Gap 15 BUN 18 H Creatinine 0.4 L Est GFR ( Amer) > 60 Est GFR (Non-Af Amer) > 60 Random Glucose 100 Calcium 7.8 L Phosphorus 5.9 H Magnesium 1.3 L Total Bilirubin 0.3 AST 19 ALT 26 Alkaline Phosphatase 114 Troponin I NT-Pro-B Natriuret Pep Total Protein 5.7 L Albumin 2.4 L Globulin 3.3 Albumin/Globulin Ratio 0.7 L Procalcitonin Arterial Blood Potassium Urine Color Urine Clarity Urine pH Ur Specific [place] Urine Protein Urine Glucose (UA) Urine Ketones Urine Blood Urine Nitrate Urine Bilirubin Urine Urobilinogen Ur Leukocyte Esterase Urine WBC (Auto) Urine RBC (Auto) Influenza Typ A,B (EIA)
--- NOTE | 2017-10-16 16:02 | CP.PCM.CON ---
History of Present Illness - History of Present Illness History of Present Illness: Patient was sent from halfway for shortness of breath. Patient was evaluated, being admitted for SOB, hypoxia needing close to 100% fio2, patient at baseline has h/o copd, on 3lit o2 at home recently in rehab on 6lit o2 by nc, h/o CAD, pvd, early dementia, weakness, ambulatory dysfunction at time of eval HR 110/min, reg, 110/60, RR 20/min tmax 101 rectal, spo2 100% on 100% fio2, patient not in acute distress. Labs showing leucocytosis, cxr, scattered interstitial patten infiltrates, creat 0.8. Patient on Eliquis clear reason not known, was hospitalized [place] [facility] [place] was in [place] only for last 2 days. Past medical history: CAD, PVD, COPD, hypertension, dementia. Review of system noted from the chart. Patient is somewhat drowsy, responding otherwise. Complaining of pain generalized. Mild shortness of breath noted, minimal cough present. Abdomen nontender. Patient has bilateral leg swelling also. History of DVT in the past. Past medical history, surgical history and social history reviewed HEENT NE Chest on right more ronchi then left CVS regular bilateral leg swelling noted. Abdomen soft nontender Patient is awake and responding. Labs reviewed CT of the chest showing evidence of large primary embolism, involving the rt lung. CTA reviewed by me major obstructing clot in right mainstem pulm art, and small distal clots, right upper lobe small dense area suspicious for infarct vs tumor , vs infiltrate. Assessment/Plan 72 F with h/o copd, on home o2, [place] resident, CAD, PVD, early dementia, ambulatory dsyfunction came with sob, hypoxia has PE as above. Admit to ICU, heparin drip Venous doppler Emperic abx Patient may need IVC filter as per despite being on eliquis, will speak to family patient may have a lung mass, suspicious for lung cancer. But currently patient is unstable. Will continue to monitor. Will get interventional radiologyevaluation. Past Patient History - Past Medical History & Family History Past Medical History?: Yes - Past Social History Smoking Status: Never Smoked - CARDIAC Hx Congestive Heart Failure: Yes - PULMONARY Hx Asthma: Yes Hx Chronic Obstructive Pulmonary Disease (COPD): Yes (emphysema) Hx Emphysema: Yes - NEUROLOGICAL Hx Neurological Disorder: No - HEENT Hx Cataracts: Yes - RENAL Hx Chronic Kidney Disease: No - ENDOCRINE/METABOLIC Hx Diabetes Mellitus Type 2: Yes - HEMATOLOGICAL/ONCOLOGICAL Hx Blood Disorders: No - INTEGUMENTARY Hx Dermatological Problems: No - MUSCULOSKELETAL/RHEUMATOLOGICAL Hx Falls: No - GASTROINTESTINAL Hx Gastrointestinal Disorders: No Hx Gastroesophageal Reflux: Yes - GENITOURINARY/GYNECOLOGICAL Hx Genitourinary Disorders: No - PSYCHIATRIC Hx Anxiety: Yes Hx Substance Use: No - SURGICAL HISTORY Hx Surgeries: Yes Hx Cataract Extraction: Yes Hx Mastectomy: Yes Other/Comment: R mastectomy 8 yrs ago L mastectomy 6 yrs ago - ANESTHESIA Hx Anesthesia: Yes Hx Anesthesia Reactions: No Meds Allergies/Adverse Reactions: Allergies Allergy/AdvReac Type Severity Reaction Status Date / Time adhesive tape Allergy Verified 08/30/17 21:45 latex Allergy Verified 08/30/17 21:45 - Medications Medications: Current Medications Acetaminophen (Tylenol 325mg Tab) 650 mg PO Q6 PRN PRN Reason: PAIN + FEVER Budesonide (Pulmicort Respules) 0.5 mg IH RQ12 [facility] Last Admin: 10/16/17 08:29 Dose: 0.5 mg Folic Acid (Folic Acid) 1 mg PO DAILY [facility] Last Admin: 10/16/17 10:30 Dose: 1 mg Furosemide (Lasix) 40 mg IVP DAILY [facility] Last Admin: 10/16/17 10:32 Dose: 40 mg Heparin Sodium/Sodium Chloride (Heparin 13681 Units/250ml 1/2 Normal Saline) 25 ,000 units in 250 mls @ 7.484 mls/hr IV .Q24H PRN; Protocol; 15 UNITS/KG/HR PRN Reason: PROTOCOL Last Titration: 10/16/17 03:15 Dose: 8.81 units/kg/hr, 4.4 mls/hr Meropenem 500 mg/ Sodium (Chloride) 100 mls @ 100 mls/hr IVPB Q8 [facility] PRN Reason: Protocol Last Admin: 10/16/17 13:39 Dose: 100 mls/hr Montelukast Sodium (Singulair) 10 mg PO HS [facility] Last Admin: 10/16/17 10:30 Dose: 10 mg Multivitamins (Hexavitamin) 1 tab PO DAILY [facility] Last Admin: 10/16/17 10:30 Dose: 1 tab Pantoprazole Sodium (Protonix Ec Tab) 40 mg PO DAILY [facility] Last Admin: 10/16/17 10:30 Dose: 40 mg Rosuvastatin Calcium (Crestor) 10 mg PO HS [facility] Results - Vital Signs Recent Vital Signs: Last Vital Signs Temp 98.7 F 10/16/17 12:00 Pulse 105 H 10/16/17 15:00 Resp 22 10/16/17 15:00 BP 144/60 10/16/17 14:50 Pulse Ox 92 L 10/16/17 15:00 - Labs Result Diagrams: 10/16/17 08:17 10/16/17 08:17 Labs: Laboratory Results - last 24 hr 10/15/17 10/15/17 10/15/17 21:55 21:55 22:05 WBC 22.1 H D RBC 3.99 Hgb 9.9 L Hct 31.5 L MCV 79.0 L MCH 24.7 L MCHC 31.3 L RDW 24.2 H Plt Count 573 H D MPV 7.8 Neut % (Auto) 86.1 H Lymph % (Auto) 7.1 L [place] % (Auto) 6.6 Eos % (Auto) 0.0 Baso % (Auto) 0.2 Neut # (Auto) 19.0 H Lymph # (Auto) 1.6 [place] # (Auto) 1.5 H Eos # (Auto) 0.0 Baso # (Auto) 0.1 Neutrophils % (Manual) 87 H Band Neutrophils % Lymphocytes % (Manual) 10 L Monocytes % (Manual) 3 Platelet Estimate Increased H Large Platelets Present Polychromasia Hypochromasia (manual) Poikilocytosis (manual Basophilic Stippling Anisocytosis (manual) Microcytosis (manual) Ovalocytes Roseanne Cells PT INR APTT Puncture Site Lr pCO2 50 H pO2 114 H HCO3 33.5 H ABG pH 7.47 H ABG Total CO2 37.9 H ABG O2 Saturation 100.2 H ABG Base Excess 10.9 H ABG Hemoglobin ABG Carboxyhemoglobin POC ABG HHb (Measured) ABG Methemoglobin Bill Test Pos ABG Potassium 2.9 L A-a O2 Difference 537.0 Respiratory Index 4.7 Hgb O2 Saturation Glucose 116 H Lactate 1.0 Liter Flow 20.0 Vent Mode FiO2 100.0 Sodium 144 145.0 Potassium 3.4 L Chloride 97 L 109.0 H Carbon Dioxide 38 H Anion Gap 13 BUN 19 H Creatinine 0.5 L Est GFR ( Amer) > 60 Est GFR (Non-Af Amer) > 60 Random Glucose 127 H Calcium 8.5 L Phosphorus Magnesium Total Bilirubin 0.4 AST 20 ALT 33 Alkaline Phosphatase 124 Troponin I 0.0260 NT-Pro-B Natriuret Pep 6810 H Total Protein 6.4 Albumin 2.7 L Globulin 3.7 Albumin/Globulin Ratio 0.7 L Procalcitonin Arterial Blood Potassium 2.9 L Urine Color Urine Clarity Urine pH Ur Specific [place] Urine Protein Urine Glucose (UA) Urine Ketones Urine Blood Urine Nitrate Urine Bilirubin Urine Urobilinogen Ur Leukocyte Esterase Urine WBC (Auto) Urine RBC (Auto) Influenza Typ A,B (EIA) 10/15/17 10/15/17 10/16/17 23:12 Unknown 01:47 WBC RBC Hgb Hct MCV MCH MCHC RDW Plt Count MPV Neut % (Auto) Lymph % (Auto) [place] % (Auto) Eos % (Auto) Baso % (Auto) Neut # (Auto) Lymph # (Auto) [place] # (Auto) Eos # (Auto) Baso # (Auto) Neutrophils % (Manual) Band Neutrophils % Lymphocytes % (Manual) Monocytes % (Manual) Platelet Estimate Large Platelets Polychromasia Hypochromasia (manual) Poikilocytosis (manual Basophilic Stippling Anisocytosis (manual) Microcytosis (manual) Ovalocytes [place] Cells PT INR APTT 296 H* Puncture Site pCO2 pO2 HCO3 ABG pH ABG Total CO2 ABG O2 Saturation ABG Base Excess ABG Hemoglobin ABG Carboxyhemoglobin POC ABG HHb (Measured) ABG Methemoglobin Bill Test ABG Potassium A-a O2 Difference Respiratory Index Hgb O2 Saturation Glucose Lactate Liter Flow Vent Mode FiO2 Sodium Potassium Chloride Carbon Dioxide Anion Gap BUN Creatinine Est GFR ( Amer) Est GFR (Non-Af Amer) Random Glucose Calcium Phosphorus Magnesium Total Bilirubin AST ALT Alkaline Phosphatase Troponin I NT-Pro-B Natriuret Pep Total Protein Albumin Globulin Albumin/Globulin Ratio Procalcitonin Arterial Blood Potassium Urine Color Yellow Urine Clarity Clear Urine pH 5.0 Ur Specific [place] 1.016 Urine Protein Negative Urine Glucose (UA) Normal Urine Ketones Negative Urine Blood Negative Urine Nitrate Negative Urine Bilirubin Negative Urine Urobilinogen Normal Ur Leukocyte Esterase Neg Urine WBC (Auto) < 1 Urine RBC (Auto) < 1 Influenza Typ A,B (EIA) Negative for flu a/b 10/16/17 10/16/17 10/16/17 06:00 08:17 08:17 WBC 19.1 H RBC 3.45 L Hgb 8.5 L Hct 27.4 L MCV 79.6 L MCH 24.7 L MCHC 31.0 L RDW 24.5 H Plt Count 441 H D MPV 8.1 Neut % (Auto) 88.9 H Lymph % (Auto) 6.0 L [place] % (Auto) 5.0 Eos % (Auto) 0.0 Baso % (Auto) 0.1 Neut # (Auto) 17.0 H Lymph # (Auto) 1.1 [place] # (Auto) 1.0 H Eos # (Auto) 0.0 Baso # (Auto) 0.0 Neutrophils % (Manual) 83 H Band Neutrophils % 8 H Lymphocytes % (Manual) 5 L Monocytes % (Manual) 4 Platelet Estimate Slightly increased H Large Platelets Polychromasia Slight Hypochromasia (manual) Slight Poikilocytosis (manual Slight Basophilic Stippling Slight Anisocytosis (manual) Slight Microcytosis (manual) Slight Ovalocytes Slight Roseanne Cells Slight PT INR APTT Puncture Site Rbracjial pCO2 54 H pO2 98 HCO3 35.8 H ABG pH 7.47 H ABG Total CO2 41.0 H ABG O2 Saturation 99.2 H ABG Base Excess 14.0 H ABG Hemoglobin 8.6 L ABG Carboxyhemoglobin 2.3 H POC ABG HHb (Measured) 0.8 ABG Methemoglobin 0.9 Bill Test Neg ABG Potassium A-a O2 Difference 298.0 Respiratory Index 3.0 Hgb O2 Saturation 95.9 Glucose Lactate Liter Flow 20.0 Vent Mode Hfnc FiO2 65.0 Sodium Potassium Chloride Carbon Dioxide Anion Gap BUN Creatinine Est GFR ( Amer) Est GFR (Non-Af Amer) Random Glucose Calcium Phosphorus Magnesium Total Bilirubin AST ALT Alkaline Phosphatase Troponin I NT-Pro-B Natriuret Pep Total Protein Albumin Globulin Albumin/Globulin Ratio Procalcitonin 0.60 H Arterial Blood Potassium Urine Color Urine Clarity Urine pH Ur Specific [place] Urine Protein Urine Glucose (UA) Urine Ketones Urine Blood Urine Nitrate Urine Bilirubin Urine Urobilinogen Ur Leukocyte Esterase Urine WBC (Auto) Urine RBC (Auto) Influenza Typ A,B (EIA) 10/16/17 10/16/17 08:17 09:26 WBC RBC Hgb Hct MCV MCH MCHC RDW Plt Count MPV Neut % (Auto) Lymph % (Auto) [place] % (Auto) Eos % (Auto) Baso % (Auto) Neut # (Auto) Lymph # (Auto) [place] # (Auto) Eos # (Auto) Baso # (Auto) Neutrophils % (Manual) Band Neutrophils % Lymphocytes % (Manual) Monocytes % (Manual) Platelet Estimate Large Platelets Polychromasia Hypochromasia (manual) Poikilocytosis (manual Basophilic Stippling Anisocytosis (manual) Microcytosis (manual) Ovalocytes [place] Cells PT 31.2 H* INR 2.6 APTT 48 H D Puncture Site pCO2 pO2 HCO3 ABG pH ABG Total CO2 ABG O2 Saturation ABG Base Excess ABG Hemoglobin ABG Carboxyhemoglobin POC ABG HHb (Measured) ABG Methemoglobin Bill Test ABG Potassium A-a O2 Difference Respiratory Index Hgb O2 Saturation Glucose Lactate Liter Flow Vent Mode FiO2 Sodium 145 Potassium 2.9 L Chloride 98 Carbon Dioxide 35 H Anion Gap 15 BUN 18 H Creatinine 0.4 L Est GFR ( Amer) > 60 Est GFR (Non-Af Amer) > 60 Random Glucose 100 Calcium 7.8 L Phosphorus 5.9 H Magnesium 1.3 L Total Bilirubin 0.3 AST 19 ALT 26 Alkaline Phosphatase 114 Troponin I NT-Pro-B Natriuret Pep Total Protein 5.7 L Albumin 2.4 L Globulin 3.3 Albumin/Globulin Ratio 0.7 L Procalcitonin Arterial Blood Potassium Urine Color Urine Clarity Urine pH Ur Specific [place] Urine Protein Urine Glucose (UA) Urine Ketones Urine Blood Urine Nitrate Urine Bilirubin Urine Urobilinogen Ur Leukocyte Esterase Urine WBC (Auto) Urine RBC (Auto) Influenza Typ A,B (EIA)
--- NOTE | 2017-10-16 23:02 | CP.PCM.CON ---
History of Present Illness - History of Present Illness History of Present Illness: INFECTIOUS DISEASE CONSULT; HPI; 72-year-old female with multiple medical problems, COPD, asthma, diabetes mellitus, CHF, history of bilateral mastectomy for CA of the breast, severe peripheral vascular disease who was recently transferred from subacute rehabilitation due to acute congestive heart failure. As per history patient was recently discharged from [facility]. Within 48 hours of discharge patient was getting progressively short of breath and increasing secretions as per family members while in subacute rehabilitation. Patient was transferred to [facility] for acute pulmonary edema and BMP was found to be 6500. CT chest PE protocol showed pulmonary emboli in the right pulmonary vein trunk and left lower lung. Also there was suggestion of pulmonary infarct or mass in the lungs. Patient also had fever of 10 1F. Infectious disease consultation was therefore requested by PMD for possible superimposed pneumonia. PATIENT PRESENTLY IN ICU ON HEPARIN DRIP.. PATIENT WELL KNOWN TO ME FROM HER PREVIOUS HOSPITALIZATION FOR KLEBSIELLA PNEUMONIA. PATIENT ALSO HAS POOR EJECTION FRACTION OF LESS THAN TO 15%.ON HER PREVIOUS ECHO. ALLERGY; ADHESIVE TAPE, LATEX. Past medical history Anxiety, asthma, CHF, COPD, diabetes mellitus, emphysema ,PERIPHERAL VASCULAR DISEASE. PSH; BREAST CANCER with bilateral mastectomy Social history , lives at home, daughter Anjali is primary regular senior care provider and it's very much involved in care Family history Diabetes and hypertension in family MEDS ; REVIEWED. Review of Systems - Review of Systems Systems not reviewed;Unavailable: Respiratory Distress - Constitutional Constitutional: Chills, Fever. absent: Headache - Breasts Breasts: As Per HPI - Cardiovascular Cardiovascular: Dyspnea, Leg Edema. absent: Chest Pain - Respiratory Respiratory: Cough, Dyspnea, Chest Congestion, Excessive Mucous Production - Gastrointestinal Gastrointestinal: absent: Abdominal Pain, Diarrhea, Nausea, Vomiting - Genitourinary Genitourinary: Freq UTI. absent: Dysuria - Menstruation Menstruation: Post Menopausal - Neurological Neurological: absent: Dizziness, Headaches - Psychiatric Psychiatric: Anxiety - Hematologic/Lymphatic Hematologic: As Per HPI. absent: Easy Bleeding, Easy Bruising, Lymphadenopathy Past Patient History - Past Medical History & Family History Past Medical History?: Yes - Past Social History Smoking Status: Never Smoked - CARDIAC Hx Congestive Heart Failure: Yes - PULMONARY Hx Asthma: Yes Hx Chronic Obstructive Pulmonary Disease (COPD): Yes (emphysema) Hx Emphysema: Yes - NEUROLOGICAL Hx Neurological Disorder: No - HEENT Hx Cataracts: Yes - RENAL Hx Chronic Kidney Disease: No - ENDOCRINE/METABOLIC Hx Diabetes Mellitus Type 2: Yes - HEMATOLOGICAL/ONCOLOGICAL Hx Blood Disorders: No - INTEGUMENTARY Hx Dermatological Problems: No - MUSCULOSKELETAL/RHEUMATOLOGICAL Hx Falls: No - GASTROINTESTINAL Hx Gastrointestinal Disorders: No Hx Gastroesophageal Reflux: Yes - GENITOURINARY/GYNECOLOGICAL Hx Genitourinary Disorders: No - PSYCHIATRIC Hx Anxiety: Yes Hx Substance Use: No - SURGICAL HISTORY Hx Surgeries: Yes Hx Cataract Extraction: Yes Hx Mastectomy: Yes Other/Comment: R mastectomy 8 yrs ago L mastectomy 6 yrs ago - ANESTHESIA Hx Anesthesia: Yes Hx Anesthesia Reactions: No Meds Allergies/Adverse Reactions: Allergies Allergy/AdvReac Type Severity Reaction Status Date / Time adhesive tape Allergy Verified 08/30/17 21:45 latex Allergy Verified 08/30/17 21:45 - Medications Medications: Current Medications Acetaminophen (Tylenol 325mg Tab) 650 mg PO Q6 PRN PRN Reason: PAIN + FEVER Last Admin: 10/16/17 17:24 Dose: 650 mg Budesonide (Pulmicort Respules) 0.5 mg IH RQ12 [facility] Last Admin: 10/16/17 20:43 Dose: 0.5 mg Folic Acid (Folic Acid) 1 mg PO DAILY [facility] Last Admin: 10/16/17 10:30 Dose: 1 mg Furosemide (Lasix) 40 mg IVP DAILY [facility] Last Admin: 10/16/17 10:32 Dose: 40 mg Heparin Sodium/Sodium Chloride (Heparin 46378 Units/250ml 1/2 Normal Saline) 25 ,000 units in 250 mls @ 7.484 mls/hr IV .Q24H PRN; Protocol; 15 UNITS/KG/HR PRN Reason: PROTOCOL Last Titration: 10/16/17 03:15 Dose: 8.81 units/kg/hr, 4.4 mls/hr Meropenem 500 mg/ Sodium (Chloride) 100 mls @ 100 mls/hr IVPB Q8 JENNIFER PRN Reason: Protocol Last Admin: 10/16/17 21:15 Dose: 100 mls/hr Lorazepam (Ativan) 0.5 mg IVP Q8H PRN PRN Reason: Anxiety Last Admin: 10/16/17 17:36 Dose: 0.5 mg Montelukast Sodium (Singulair) 10 mg PO HS [facility] Multivitamins (Hexavitamin) 1 tab PO DAILY [facility] Last Admin: 10/16/17 10:30 Dose: 1 tab Pantoprazole Sodium (Protonix Ec Tab) 40 mg PO DAILY [facility] Last Admin: 10/16/17 10:30 Dose: 40 mg Rosuvastatin Calcium (Crestor) 10 mg PO HS [facility] Last Admin: 10/16/17 21:15 Dose: 10 mg Physical Exam - Constitutional Appears: No Acute Distress - Head Exam Head Exam: NORMAL INSPECTION - Eye Exam Eye Exam: EOMI, PERRL - ENT Exam ENT Exam: Normal Oropharynx - Neck Exam Neck exam: Positive for: Normal Inspection - Respiratory Exam Respiratory Exam: Prolonged Expiratory Phase, Rales (BILATERAL RALES) - Cardiovascular Exam Cardiovascular Exam: Tachycardia, +S1, +S2 - GI/Abdominal Exam GI & Abdominal Exam: Normal Bowel Sounds, Soft. absent: Organomegaly - Extremities Exam Extremities exam: Positive for: pedal edema, pedal pulses present (NOT PALPABLE. RIGHT TOES SLIGHTLY BLUISH SEC, TO PVD.). Negative for: calf tenderness, normal capillary refill - Neurological Exam Neurological exam: Alert, CN II-XII Intact - Psychiatric Exam Psychiatric exam: Normal Mood - Skin Skin Exam: Normal Color, Warm Results - Vital Signs Recent Vital Signs: Last Vital Signs Temp 97.4 F L 10/16/17 20:00 Pulse 99 H 10/16/17 20:18 Resp 24 10/16/17 22:35 BP 115/64 10/16/17 20:18 Pulse Ox 98 10/16/17 20:18 - Labs Result Diagrams: 10/16/17 08:17 10/16/17 08:17 Labs: Laboratory Results - last 24 hr 10/15/17 10/16/17 10/16/17 23:12 01:47 06:00 WBC RBC Hgb Hct MCV MCH MCHC RDW Plt Count MPV Neut % (Auto) Lymph % (Auto) [place] % (Auto) Eos % (Auto) Baso % (Auto) Neut # (Auto) Lymph # (Auto) [place] # (Auto) Eos # (Auto) Baso # (Auto) Neutrophils % (Manual) Band Neutrophils % Lymphocytes % (Manual) Monocytes % (Manual) Platelet Estimate Polychromasia Hypochromasia (manual) Poikilocytosis (manual Basophilic Stippling Anisocytosis (manual) Microcytosis (manual) Ovalocytes Roseanne Cells PT INR APTT 296 H* Puncture Site Rbracjial pCO2 54 H pO2 98 HCO3 35.8 H ABG pH 7.47 H ABG Total CO2 41.0 H ABG O2 Saturation 99.2 H ABG Base Excess 14.0 H ABG Hemoglobin 8.6 L ABG Carboxyhemoglobin 2.3 H POC ABG HHb (Measured) 0.8 ABG Methemoglobin 0.9 Bill Test Neg A-a O2 Difference 298.0 Respiratory Index 3.0 Hgb O2 Saturation 95.9 Liter Flow 20.0 Vent Mode Hfnc FiO2 65.0 Sodium Potassium Chloride Carbon Dioxide Anion Gap BUN Creatinine Est GFR ( Amer) Est GFR (Non-Af Amer) Random Glucose Calcium Phosphorus Magnesium Total Bilirubin AST ALT Alkaline Phosphatase Total Protein Albumin Globulin Albumin/Globulin Ratio Procalcitonin Urine Color Yellow Urine Clarity Clear Urine pH 5.0 Ur Specific [place] 1.016 Urine Protein Negative Urine Glucose (UA) Normal Urine Ketones Negative Urine Blood Negative Urine Nitrate Negative Urine Bilirubin Negative Urine Urobilinogen Normal Ur Leukocyte Esterase Neg Urine WBC (Auto) < 1 Urine RBC (Auto) < 1 10/16/17 10/16/17 10/16/17 08:17 08:17 08:17 WBC 19.1 H RBC 3.45 L Hgb 8.5 L Hct 27.4 L MCV 79.6 L MCH 24.7 L MCHC 31.0 L RDW 24.5 H Plt Count 441 H D MPV 8.1 Neut % (Auto) 88.9 H Lymph % (Auto) 6.0 L [place] % (Auto) 5.0 Eos % (Auto) 0.0 Baso % (Auto) 0.1 Neut # (Auto) 17.0 H Lymph # (Auto) 1.1 [place] # (Auto) 1.0 H Eos # (Auto) 0.0 Baso # (Auto) 0.0 Neutrophils % (Manual) 83 H Band Neutrophils % 8 H Lymphocytes % (Manual) 5 L Monocytes % (Manual) 4 Platelet Estimate Slightly increased H Polychromasia Slight Hypochromasia (manual) Slight Poikilocytosis (manual Slight Basophilic Stippling Slight Anisocytosis (manual) Slight Microcytosis (manual) Slight Ovalocytes Slight [place] Cells Slight PT INR APTT Puncture Site pCO2 pO2 HCO3 ABG pH ABG Total CO2 ABG O2 Saturation ABG Base Excess ABG Hemoglobin ABG Carboxyhemoglobin POC ABG HHb (Measured) ABG Methemoglobin Bill Test A-a O2 Difference Respiratory Index Hgb O2 Saturation Liter Flow Vent Mode FiO2 Sodium 145 Potassium 2.9 L Chloride 98 Carbon Dioxide 35 H Anion Gap 15 BUN 18 H Creatinine 0.4 L Est GFR ( Amer) > 60 Est GFR (Non-Af Amer) > 60 Random Glucose 100 Calcium 7.8 L Phosphorus 5.9 H Magnesium 1.3 L Total Bilirubin 0.3 AST 19 ALT 26 Alkaline Phosphatase 114 Total Protein 5.7 L Albumin 2.4 L Globulin 3.3 Albumin/Globulin Ratio 0.7 L Procalcitonin 0.60 H Urine Color Urine Clarity Urine pH Ur Specific [place] Urine Protein Urine Glucose (UA) Urine Ketones Urine Blood Urine Nitrate Urine Bilirubin Urine Urobilinogen Ur Leukocyte Esterase Urine WBC (Auto) Urine RBC (Auto) 10/16/17 10/16/17 09:26 15:57 WBC RBC Hgb Hct MCV MCH MCHC RDW Plt Count MPV Neut % (Auto) Lymph % (Auto) [place] % (Auto) Eos % (Auto) Baso % (Auto) Neut # (Auto) Lymph # (Auto) [place] # (Auto) Eos # (Auto) Baso # (Auto) Neutrophils % (Manual) Band Neutrophils % Lymphocytes % (Manual) Monocytes % (Manual) Platelet Estimate Polychromasia Hypochromasia (manual) Poikilocytosis (manual Basophilic Stippling Anisocytosis (manual) Microcytosis (manual) Ovalocytes [place] Cells PT 31.2 H* INR 2.6 APTT 48 H D 53 H D Puncture Site pCO2 pO2 HCO3 ABG pH ABG Total CO2 ABG O2 Saturation ABG Base Excess ABG Hemoglobin ABG Carboxyhemoglobin POC ABG HHb (Measured) ABG Methemoglobin Bill Test A-a O2 Difference Respiratory Index Hgb O2 Saturation Liter Flow Vent Mode FiO2 Sodium Potassium Chloride Carbon Dioxide Anion Gap BUN Creatinine Est GFR ( Amer) Est GFR (Non-Af Amer) Random Glucose Calcium Phosphorus Magnesium Total Bilirubin AST ALT Alkaline Phosphatase Total Protein Albumin Globulin Albumin/Globulin Ratio Procalcitonin Urine Color Urine Clarity Urine pH Ur Specific [place] Urine Protein Urine Glucose (UA) Urine Ketones Urine Blood Urine Nitrate Urine Bilirubin Urine Urobilinogen Ur Leukocyte Esterase Urine WBC (Auto) Urine RBC (Auto) - Imaging and Cardiology CT scan - chest PE protocol Status: Report reviewed by me Assessment & Plan (1) Pulmonary embolism, bilateral Status: Acute (2) Acute CHF Status: Acute (3) Pneumonia Status: Acute (4) PVD (peripheral vascular disease) Status: Acute (5) Type II diabetes mellitus Status: Acute (6) History of bilateral mastectomy Status: Acute - Assessment and Plan (Free Text) Plan: IMPRESSION; PULMONARY EMBOLISM/PULMONARY INFARCT R/O PNEUMONIA SUPERIMPOSED. CONGESTIVE HEART FAILURE. EXACERBATION OF COPD. DIABETES MELLITUS.. CA OF BREAST W B/L MASTECTOMY. PVD. PLAN. PATIENT ON HEPARIN DRIP PANCULTURE. STARTED IV MERREM 500 MG iv PIGGYBACK EVERY 8 HOURLY, CURRENTLY FOR POSSIBLE SUPERIMPOSED PNEUMONIA/ PROBABLE SEPSIS.10/15/17. PATIENT GOT ONE DOSE OF DOXYCYCLINE NOTED. ESR,CRP.AM SPUTUM gRAM STAIN AND CULTURE. F/U PRO-CALCITONIN LEVEL iv FLUIDS PER BI DATA ARCHITECT .CASE DISCUSSED WITH PMD.
[2017-10-17 05:28] LABS: ABG ALLEN TEST POS; ARTERIAL BLOOD GAS HEMOGLOBIN 8.3 g/dL (11.7-17.4); ARTERIAL BLOOD GAS O2 SAT 99.2 % (95-98); ARTERIAL BLOOD GAS PCO2 63 mm/Hg (35-45); ARTERIAL BLOOD GAS PH 7.43 (7.35-7.45); ARTERIAL BLOOD GAS PO2 98 mm/Hg (80-100); ARTERIAL BLOOD GAS TCO2 43.7 mmol/L (22-28)
[2017-10-17] MEDS: Meropenem 500 MG in Sodium Chloride 0.9% 100 ML IVPB SCH ×3 (05:34→21:13)
[2017-10-17 06:09] LABS: BASO % 0.1 % (0.0-2.0); HEMOGLOBIN 8.6 g/dL (11.0-16.0); LYMPH % 4.1 % (20.0-40.0); MEAN CELL VOLUME 78.6 fL (81.0-99.0); MEAN CORPUSCULAR HEMOGLOBIN 25.2 pg (27.0-31.0); MEAN CORPUSCULAR HGB CONC 32.1 g/dL (33.0-37.0); MONO # 1.1 K/uL (0.0-0.8); MONO % 4.8 % (0.0-10.0); NEUT # 21.4 K/uL (1.8-7.0); PLATELET COUNT 493 K/uL (130-400); RED CELL DISTRIBUTION WIDTH 23.6 % (11.5-14.5); WHITE BLOOD COUNT 23.5 K/uL (4.8-10.8)
[2017-10-17 06:52] LABS: BLOOD UREA NITROGEN 20 mg/dL (7-17); CALCIUM 8.3 mg/dl (8.6-10.4); GFR AFRICAN-AMERICAN > 60; GFR NON-AFRICAN AMERICAN > 60
[2017-10-17] MEDS: Budesonide 0.25 mg/2 ml Inhal Susp UD IH SCH ×2 (07:30→21:04)
[2017-10-17 08:29] LABS: ANISOCYTOSIS MODERATE; BANDS 5 % (0-2); LYMPHOCYTE 2 % (20-40); MONOCYTE 1 % (0-10); NEUTROPHIL 92 % (50-75); PLATELET ESTIMATE SLIGHTLY INCREASED (NORMAL); TOTAL CELLS COUNTED 100
[2017-10-17 08:31] LABS: HYPOCHROMIC SLIGHT; POIKILOCYTOSIS SLIGHT
[2017-10-17 08:32] LABS: OVALOCYTES SLIGHT; TARGET CELLS SLIGHT
[2017-10-17] MEDS ORDERED: Iohexol 350mg/ml 100 ML ONE (09:12)
[2017-10-17] MEDS ORDERED: Potassium Chloride 20 mEq/15 ml LIQ UD PO ONE ×2 (09:15→11:30)
[2017-10-17] MEDS ORDERED: Lidocaine 2% Inj (20ml) ONE (09:47)
[2017-10-17] MEDS: Enoxaparin 60 mg Syringe SC SCH ×2 (11:16→21:13)
[2017-10-17] MEDS: Multiple Vitamins Tab PO SCH (11:26)
[2017-10-17] MEDS: Pantoprazole 40 mg EC Tab PO SCH (11:27)
--- NOTE | 2017-10-17 12:13 | CP.CCUPN ---
<Damari Sanchez - Last Filed: 10/17/17 17:05> CCU Subjective - Physician Review Subjective (Free Text): 10/17/17 12:13 Patient seen and examined at bedside. Per nursing no acute events overnight. Patient on heparin drip for PE. Going for IVC filter placement this morning with IR. Patient offers no complaints. SOB improving. CCU Objective - Vital Signs / Intake & Output Vital Signs (Last 4 hours): Vital Signs Pulse Resp BP Pulse Ox 10/17/17 11:26 121/64 10/17/17 11:09 108 H 21 121/64 96 10/17/17 11:00 107 H 29 H 98 10/17/17 10:54 104 H 25 H 109/57 L 97 10/17/17 10:39 119 H 33 H 101/47 L 99 10/17/17 10:24 110 H 28 H 118/53 L 99 10/17/17 10:09 118 H 33 H 129/45 L 100 10/17/17 10:07 115 H 10/17/17 09:19 117 H 25 H 117/90 98 10/17/17 08:18 104 H 26 H 125/61 100 Intake and Output (Last 8hrs): Intake & Output 10/16/17 10/17/17 10/17/17 22:59 06:59 14:59 Intake Total 309.6 85.2 434.4 Output Total 440 210 80 Balance -130.4 -124.8 354.4 Weight 57.606 kg Intake: IV 155 Intake, IV Amount 139.6 35.2 19.4 Left Forearm 39.6 35.2 19.4 Left Wrist 100 Oral 170 50 260 Output: Urine 440 210 80 Urethral (Rico) 440 210 80 Other: # Bowel Movements 1 - Physical Exam Head: Positive for: Atraumatic, Normocephalic Pupils: Positive for: PERRL Extroacular Muscles: Positive for: EOMI Conjunctiva: Positive for: Normal Mouth: Positive for: Moist Mucous Membranes Respiratory/Chest: Positive for: Rhonchi Cardiovascular: Positive for: Normal S1, S2, Tachycardic Abdomen: Positive for: Normal Bowel Sounds. Negative for: Tenderness Upper Extremity: Positive for: Normal Inspection Lower Extremity: Positive for: Edema Skin: Positive for: Warm, Dry, Normal Color Psychiatric: Positive for: Alert, Oriented x 3 - Medications Active Medications: Active Medications Generic Name Dose Route Start Last Admin Trade Name Freq PRN Reason Stop Dose Admin Acetaminophen 650 mg 10/16/17 12:00 10/16/17 17:24 Tylenol 325mg Tab PO 650 mg Q6 PRN Administration PAIN + FEVER Budesonide 0.5 mg 10/16/17 08:00 10/17/17 07:30 Pulmicort Respules IH 0.5 mg RQ12 JENNIFER Administration Enoxaparin Sodium 60 mg 10/17/17 11:15 10/17/17 11:16 Lovenox SC 60 mg Q12 JENNIFER Administration Folic Acid 1 mg 10/16/17 10:00 10/17/17 11:27 Folic Acid PO 1 mg DAILY JENNIFER Administration Furosemide 40 mg 10/16/17 10:00 10/17/17 11:26 Lasix IVP 40 mg DAILY JENNIFER Administration Meropenem 500 mg/ Sodium 100 mls @ 100 mls/hr 10/16/17 06:00 10/17/17 05:34 Chloride IVPB 100 mls/hr Q8 JENNIFER Administration Protocol Magnesium Sulfate/Dextrose 1 gm in 100 mls @ 200 mls/hr 10/17/17 12:15 Magnesium Sulfate 1 Gm/100 Ml D5w IVPB 10/17/17 13:14 Q30M JENNIFER Lorazepam 0.5 mg 10/16/17 17:20 10/16/17 17:36 Ativan IVP 0.5 mg Q8H PRN Administration Anxiety Montelukast Sodium 10 mg 10/17/17 22:00 Singulair PO HS [facility] Multivitamins 1 tab 10/16/17 10:00 10/17/17 11:26 Hexavitamin PO 1 tab DAILY JENNIFER Administration Pantoprazole Sodium 40 mg 10/16/17 10:00 10/17/17 11:27 Protonix Ec Tab PO 40 mg DAILY JENNIFER Administration Rosuvastatin Calcium 10 mg 10/16/17 22:00 10/16/17 21:15 Crestor PO 10 mg HS [facility] Administration - Patient Studies Lab Studies: Microbiology Studies 10/16/17 01:39 MRSA Culture (Admit) - Final Naris MRSA DETECTED 10/15/17 21:41 Urine Culture - Final Urine No Growth (<1,000 CFU/ML) 10/15/17 21:55 Blood Culture - Preliminary Blood NO GROWTH AFTER 24 HOURS 10/15/17 21:30 Blood Culture - Preliminary Blood NO GROWTH AFTER 24 HOURS Lab Studies 10/17/17 10/17/17 10/17/17 Range/Units 05:58 05:55 05:55 WBC 23.5 H (4.8-10.8) K/uL RBC 3.40 L (3.80-5.20) Mil/uL Hgb 8.6 L (11.0-16.0) g/dL Hct 26.7 L (34.0-47.0) % MCV 78.6 L (81.0-99.0) fL MCH 25.2 L (27.0-31.0) pg MCHC 32.1 L (33.0-37.0) g/dL RDW 23.6 H (11.5-14.5) % Plt Count 493 H (130-400) K/uL MPV 8.0 (7.2-11.7) fL Neut % (Auto) 91.0 H (50.0-75.0) % Lymph % (Auto) 4.1 L (20.0-40.0) % [place] % (Auto) 4.8 (0.0-10.0) % Eos % (Auto) 0.0 (0.0-4.0) % Baso % (Auto) 0.1 (0.0-2.0) % Neut # (Auto) 21.4 H (1.8-7.0) K/uL Lymph # (Auto) 1.0 (1.0-4.3) K/uL [place] # (Auto) 1.1 H (0.0-0.8) K/uL Eos # (Auto) 0.0 (0.0-0.7) K/uL Baso # (Auto) 0.0 (0.0-0.2) K/uL Neutrophils % (Manual) 92 H (50-75) % Band Neutrophils % 5 H (0-2) % Lymphocytes % (Manual) 2 L (20-40) % Monocytes % (Manual) 1 (0-10) % Platelet Estimate Slightly increased H (NORMAL) Hypochromasia (manual) Slight Poikilocytosis (manual Slight Anisocytosis (manual) Moderate Target Cells Slight Ovalocytes Slight APTT 43 H D (21-34) SECONDS Puncture Site pCO2 (35-45) mm/Hg pO2 (80-100) mm/Hg HCO3 (21-28) mmol/L ABG pH (7.35-7.45) ABG Total CO2 (22-28) mmol/L ABG O2 Saturation (95-98) % ABG Base Excess (-2.0-3.0) mmol/L ABG Hemoglobin (11.7-17.4) g/dL ABG Carboxyhemoglobin (0.5-1.5) % POC ABG HHb (Measured) (0.0-5.0) % ABG Methemoglobin (0.0-3.0) % Bill Test A-a O2 Difference mm/Hg Respiratory Index Hgb O2 Saturation (95.0-98.0) % Liter Flow FiO2 % Crit Value Called To Crit Value Called By Crit Value Read Back Blood Gas Notified Time Sodium 145 (132-148) mmol/L Potassium 3.0 L (3.6-5.2) mmol/L Chloride 94 L (98-107) mmol/L Carbon Dioxide 42 H* (22-30) mmol/L Anion Gap 12 (10-20) BUN 20 H (7-17) mg/dL Creatinine 0.4 L (0.7-1.2) mg/dL Est GFR ( Amer) > 60 Est GFR (Non-Af Amer) > 60 Random Glucose 67 (65-105) mg/dL Calcium 8.3 L (8.6-10.4) mg/dl Phosphorus 5.6 H (2.5-4.5) mg/dL Magnesium 1.4 L (1.6-2.3) mg/dL 10/17/17 10/16/17 Range/Units 04:55 15:57 WBC (4.8-10.8) K/uL RBC (3.80-5.20) Mil/uL Hgb (11.0-16.0) g/dL Hct (34.0-47.0) % MCV (81.0-99.0) fL MCH (27.0-31.0) pg MCHC (33.0-37.0) g/dL RDW (11.5-14.5) % Plt Count (130-400) K/uL MPV (7.2-11.7) fL Neut % (Auto) (50.0-75.0) % Lymph % (Auto) (20.0-40.0) % [place] % (Auto) (0.0-10.0) % Eos % (Auto) (0.0-4.0) % Baso % (Auto) (0.0-2.0) % Neut # (Auto) (1.8-7.0) K/uL Lymph # (Auto) (1.0-4.3) K/uL [place] # (Auto) (0.0-0.8) K/uL Eos # (Auto) (0.0-0.7) K/uL Baso # (Auto) (0.0-0.2) K/uL Neutrophils % (Manual) (50-75) % Band Neutrophils % (0-2) % Lymphocytes % (Manual) (20-40) % Monocytes % (Manual) (0-10) % Platelet Estimate (NORMAL) Hypochromasia (manual) Poikilocytosis (manual Anisocytosis (manual) Target Cells Ovalocytes APTT 53 H D (21-34) SECONDS Puncture Site Rbr pCO2 63 H (35-45) mm/Hg pO2 98 (80-100) mm/Hg HCO3 37.0 H (21-28) mmol/L ABG pH 7.43 (7.35-7.45) ABG Total CO2 43.7 H (22-28) mmol/L ABG O2 Saturation 99.2 H (95-98) % ABG Base Excess 15.5 H (-2.0-3.0) mmol/L ABG Hemoglobin 8.3 L (11.7-17.4) g/dL ABG Carboxyhemoglobin 2.5 H (0.5-1.5) % POC ABG HHb (Measured) 0.8 (0.0-5.0) % ABG Methemoglobin 1.4 (0.0-3.0) % Bill Test Pos A-a O2 Difference 287.0 mm/Hg Respiratory Index 2.9 Hgb O2 Saturation 95.4 (95.0-98.0) % Liter Flow 30.0 FiO2 65.0 % Crit Value Called To Md cheri marrero Crit Value Called By Arielle gao trial manager Crit Value Read Back Y Blood Gas Notified Time 540 Sodium (132-148) mmol/L Potassium (3.6-5.2) mmol/L Chloride (98-107) mmol/L Carbon Dioxide (22-30) mmol/L Anion Gap (10-20) BUN (7-17) mg/dL Creatinine (0.7-1.2) mg/dL Est GFR ( Amer) Est GFR (Non-Af Amer) Random Glucose (65-105) mg/dL Calcium (8.6-10.4) mg/dl Phosphorus (2.5-4.5) mg/dL Magnesium (1.6-2.3) mg/dL Laboratory Results - last 24 hr 10/16/17 10/17/17 10/17/17 15:57 04:55 05:55 WBC 23.5 H RBC 3.40 L Hgb 8.6 L Hct 26.7 L MCV 78.6 L MCH 25.2 L MCHC 32.1 L RDW 23.6 H Plt Count 493 H MPV 8.0 Neut % (Auto) 91.0 H Lymph % (Auto) 4.1 L [place] % (Auto) 4.8 Eos % (Auto) 0.0 Baso % (Auto) 0.1 Neut # (Auto) 21.4 H Lymph # (Auto) 1.0 [place] # (Auto) 1.1 H Eos # (Auto) 0.0 Baso # (Auto) 0.0 Neutrophils % (Manual) 92 H Band Neutrophils % 5 H Lymphocytes % (Manual) 2 L Monocytes % (Manual) 1 Platelet Estimate Slightly increased H Hypochromasia (manual) Slight Poikilocytosis (manual Slight Anisocytosis (manual) Moderate Target Cells Slight Ovalocytes Slight APTT 53 H D Puncture Site Rbr pCO2 63 H pO2 98 HCO3 37.0 H ABG pH 7.43 ABG Total CO2 43.7 H ABG O2 Saturation 99.2 H ABG Base Excess 15.5 H ABG Hemoglobin 8.3 L ABG Carboxyhemoglobin 2.5 H POC ABG HHb (Measured) 0.8 ABG Methemoglobin 1.4 Bill Test Pos A-a O2 Difference 287.0 Respiratory Index 2.9 Hgb O2 Saturation 95.4 Liter Flow 30.0 FiO2 65.0 Crit Value Called To Md cheri marrero Crit Value Called By Arielle gao trial manager Crit Value Read Back Y Blood Gas Notified Time 540 Sodium Potassium Chloride Carbon Dioxide Anion Gap BUN Creatinine Est GFR ( Amer) Est GFR (Non-Af Amer) Random Glucose Calcium Phosphorus Magnesium 10/17/17 10/17/17 05:55 05:58 WBC RBC Hgb Hct MCV MCH MCHC RDW Plt Count MPV Neut % (Auto) Lymph % (Auto) [place] % (Auto) Eos % (Auto) Baso % (Auto) Neut # (Auto) Lymph # (Auto) [place] # (Auto) Eos # (Auto) Baso # (Auto) Neutrophils % (Manual) Band Neutrophils % Lymphocytes % (Manual) Monocytes % (Manual) Platelet Estimate Hypochromasia (manual) Poikilocytosis (manual Anisocytosis (manual) Target Cells Ovalocytes APTT 43 H D Puncture Site pCO2 pO2 HCO3 ABG pH ABG Total CO2 ABG O2 Saturation ABG Base Excess ABG Hemoglobin ABG Carboxyhemoglobin POC ABG HHb (Measured) ABG Methemoglobin Bill Test A-a O2 Difference Respiratory Index Hgb O2 Saturation Liter Flow FiO2 Crit Value Called To Crit Value Called By Crit Value Read Back Blood Gas Notified Time Sodium 145 Potassium 3.0 L Chloride 94 L Carbon Dioxide 42 H* Anion Gap 12 BUN 20 H Creatinine 0.4 L Est GFR ( Amer) > 60 Est GFR (Non-Af Amer) > 60 Random Glucose 67 Calcium 8.3 L Phosphorus 5.6 H Magnesium 1.4 L Critical Care Progress Note - Nutrition Nutrition: Nutrition Category Date Time Status Consistent Carbohydrate [DIET] Diets 10/16/17 Breakfast Active Assessment/Plan - Assessment and Plan (Free Text) Assessment: Patient is a 72 year old female with past medical history of COPD, on home o2, 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 CT chest showed pulmonary emboli in the right pulmonary vein trunk and left lower lung, also suggestion of pulmonary infarct or mass in the lungs. Patient admitted to the ICU for closer monitoring -Stable, afebrile -Patient was started on heparin drip -S/P IVC filter by IR -Heparin drip discontinued, on Lovenox 60mg SC Q12H -Leukocytosis, WBC 23.5 -Antibiotics: Merrem 500mg Q8H IV -ProBNP 6810, echo ordered -Potassium 3.0, repleted -Continue Lasix 40mg IVP daily -Continue Cozaar 25mg PO daily, Crestor 10mg PO HS -Continue Pulmicort, Duonebs, Singular -Venous dopplers show bilateral DVTs, awaiting official report -Continue Protonix 40mg PO daily -Will continue to monitor <GilmerDenton - Last Filed: 10/17/17 19:13> CCU Objective - Vital Signs / Intake & Output Vital Signs (Last 4 hours): Vital Signs Pulse Resp BP Pulse Ox 10/17/17 16:21 112 H 36 H 91/48 L 91 L 10/17/17 16:00 144 H 31 H 95 10/17/17 15:21 141 H 40 H 123/69 91 L Intake and Output (Last 8hrs): Intake & Output 10/17/17 10/17/17 10/17/17 06:59 14:59 22:59 Intake Total 85.2 664.4 Output Total 210 580 Balance -124.8 84.4 Weight 127 lb Intake: IV 155 Intake, IV Amount 35.2 219.4 Left Forearm 35.2 219.4 Oral 50 290 Output: Urine 210 580 Urethral (Rico) 210 580 Other: # Bowel Movements 1 1 - Medications Active Medications: Active Medications Generic Name Dose Route Start Last Admin Trade Name Freq PRN Reason Stop Dose Admin Acetaminophen 650 mg 10/16/17 12:00 10/16/17 17:24 Tylenol 325mg Tab PO 650 mg Q6 PRN Administration PAIN + FEVER Budesonide 0.5 mg 10/16/17 08:00 10/17/17 07:30 Pulmicort Respules IH 0.5 mg RQ12 JENNIFER Administration Enoxaparin Sodium 60 mg 10/17/17 11:15 10/17/17 11:16 Lovenox SC 60 mg Q12 JENNIFER Administration Folic Acid 1 mg 10/16/17 10:00 10/17/17 11:27 Folic Acid PO 1 mg DAILY JENNIFER Administration Furosemide 40 mg 10/16/17 10:00 10/17/17 11:26 Lasix IVP 40 mg DAILY JENNIFER Administration Meropenem 500 mg/ Sodium 100 mls @ 100 mls/hr 10/16/17 06:00 10/17/17 14:17 Chloride IVPB 100 mls/hr Q8 JENNIFER Administration Protocol Lorazepam 0.5 mg 10/16/17 17:20 10/17/17 17:09 Ativan IVP 0.5 mg Q8H PRN Administration Anxiety Losartan Potassium 25 mg 10/18/17 10:00 Cozaar PO DAILY JENNIFER Montelukast Sodium 10 mg 10/17/17 22:00 Singulair PO HS JENNIFER Multivitamins 1 tab 10/16/17 10:00 10/17/17 11:26 Hexavitamin PO 1 tab DAILY JENNIFER Administration Pantoprazole Sodium 40 mg 10/16/17 10:00 10/17/17 11:27 Protonix Ec Tab PO 40 mg DAILY JENNIFER Administration Rosuvastatin Calcium 10 mg 10/16/17 22:00 10/16/17 21:15 Crestor PO 10 mg HS [facility] Administration - Patient Studies Lab Studies: Microbiology Studies 10/16/17 01:39 MRSA Culture (Admit) - Final Naris MRSA DETECTED 10/15/17 21:41 Urine Culture - Final Urine No Growth (<1,000 CFU/ML) 10/15/17 21:55 Blood Culture - Preliminary Blood NO GROWTH AFTER 24 HOURS 10/15/17 21:30 Blood Culture - Preliminary Blood NO GROWTH AFTER 24 HOURS Lab Studies 10/17/17 10/17/17 10/17/17 Range/Units 05:58 05:55 05:55 WBC 23.5 H (4.8-10.8) K/uL RBC 3.40 L (3.80-5.20) Mil/uL Hgb 8.6 L (11.0-16.0) g/dL Hct 26.7 L (34.0-47.0) % MCV 78.6 L (81.0-99.0) fL MCH 25.2 L (27.0-31.0) pg MCHC 32.1 L (33.0-37.0) g/dL RDW 23.6 H (11.5-14.5) % Plt Count 493 H (130-400) K/uL MPV 8.0 (7.2-11.7) fL Neut % (Auto) 91.0 H (50.0-75.0) % Lymph % (Auto) 4.1 L (20.0-40.0) % [place] % (Auto) 4.8 (0.0-10.0) % Eos % (Auto) 0.0 (0.0-4.0) % Baso % (Auto) 0.1 (0.0-2.0) % Neut # (Auto) 21.4 H (1.8-7.0) K/uL Lymph # (Auto) 1.0 (1.0-4.3) K/uL [place] # (Auto) 1.1 H (0.0-0.8) K/uL Eos # (Auto) 0.0 (0.0-0.7) K/uL Baso # (Auto) 0.0 (0.0-0.2) K/uL Neutrophils % (Manual) 92 H (50-75) % Band Neutrophils % 5 H (0-2) % Lymphocytes % (Manual) 2 L (20-40) % Monocytes % (Manual) 1 (0-10) % Platelet Estimate Slightly increased H (NORMAL) Hypochromasia (manual) Slight Poikilocytosis (manual Slight Anisocytosis (manual) Moderate Target Cells Slight Ovalocytes Slight APTT 43 H D (21-34) SECONDS Puncture Site pCO2 (35-45) mm/Hg pO2 (80-100) mm/Hg HCO3 (21-28) mmol/L ABG pH (7.35-7.45) ABG Total CO2 (22-28) mmol/L ABG O2 Saturation (95-98) % ABG Base Excess (-2.0-3.0) mmol/L ABG Hemoglobin (11.7-17.4) g/dL ABG Carboxyhemoglobin (0.5-1.5) % POC ABG HHb (Measured) (0.0-5.0) % ABG Methemoglobin (0.0-3.0) % Bill Test A-a O2 Difference mm/Hg Respiratory Index Hgb O2 Saturation (95.0-98.0) % Liter Flow FiO2 % Crit Value Called To Crit Value Called By Crit Value Read Back Blood Gas Notified Time Sodium 145 (132-148) mmol/L Potassium 3.0 L (3.6-5.2) mmol/L Chloride 94 L (98-107) mmol/L Carbon Dioxide 42 H* (22-30) mmol/L Anion Gap 12 (10-20) BUN 20 H (7-17) mg/dL Creatinine 0.4 L (0.7-1.2) mg/dL Est GFR ( Amer) > 60 Est GFR (Non-Af Amer) > 60 Random Glucose 67 (65-105) mg/dL Calcium 8.3 L (8.6-10.4) mg/dl Phosphorus 5.6 H (2.5-4.5) mg/dL Magnesium 1.4 L (1.6-2.3) mg/dL 10/17/17 Range/Units 04:55 WBC (4.8-10.8) K/uL RBC (3.80-5.20) Mil/uL Hgb (11.0-16.0) g/dL Hct (34.0-47.0) % MCV (81.0-99.0) fL MCH (27.0-31.0) pg MCHC (33.0-37.0) g/dL RDW (11.5-14.5) % Plt Count (130-400) K/uL MPV (7.2-11.7) fL Neut % (Auto) (50.0-75.0) % Lymph % (Auto) (20.0-40.0) % [place] % (Auto) (0.0-10.0) % Eos % (Auto) (0.0-4.0) % Baso % (Auto) (0.0-2.0) % Neut # (Auto) (1.8-7.0) K/uL Lymph # (Auto) (1.0-4.3) K/uL [place] # (Auto) (0.0-0.8) K/uL Eos # (Auto) (0.0-0.7) K/uL Baso # (Auto) (0.0-0.2) K/uL Neutrophils % (Manual) (50-75) % Band Neutrophils % (0-2) % Lymphocytes % (Manual) (20-40) % Monocytes % (Manual) (0-10) % Platelet Estimate (NORMAL) Hypochromasia (manual) Poikilocytosis (manual Anisocytosis (manual) Target Cells Ovalocytes APTT (21-34) SECONDS Puncture Site Rbr pCO2 63 H (35-45) mm/Hg pO2 98 (80-100) mm/Hg HCO3 37.0 H (21-28) mmol/L ABG pH 7.43 (7.35-7.45) ABG Total CO2 43.7 H (22-28) mmol/L ABG O2 Saturation 99.2 H (95-98) % ABG Base Excess 15.5 H (-2.0-3.0) mmol/L ABG Hemoglobin 8.3 L (11.7-17.4) g/dL ABG Carboxyhemoglobin 2.5 H (0.5-1.5) % POC ABG HHb (Measured) 0.8 (0.0-5.0) % ABG Methemoglobin 1.4 (0.0-3.0) % Bill Test Pos A-a O2 Difference 287.0 mm/Hg Respiratory Index 2.9 Hgb O2 Saturation 95.4 (95.0-98.0) % Liter Flow 30.0 FiO2 65.0 % Crit Value Called To Md cheri marrero Crit Value Called By Arielle gao trial manager Crit Value Read Back Y Blood Gas Notified Time 540 Sodium (132-148) mmol/L Potassium (3.6-5.2) mmol/L Chloride (98-107) mmol/L Carbon Dioxide (22-30) mmol/L Anion Gap (10-20) BUN (7-17) mg/dL Creatinine (0.7-1.2) mg/dL Est GFR ( Amer) Est GFR (Non-Af Amer) Random Glucose (65-105) mg/dL Calcium (8.6-10.4) mg/dl Phosphorus (2.5-4.5) mg/dL Magnesium (1.6-2.3) mg/dL Laboratory Results - last 24 hr 10/17/17 10/17/17 10/17/17 04:55 05:55 05:55 WBC 23.5 H RBC 3.40 L Hgb 8.6 L Hct 26.7 L MCV 78.6 L MCH 25.2 L MCHC 32.1 L RDW 23.6 H Plt Count 493 H MPV 8.0 Neut % (Auto) 91.0 H Lymph % (Auto) 4.1 L [place] % (Auto) 4.8 Eos % (Auto) 0.0 Baso % (Auto) 0.1 Neut # (Auto) 21.4 H Lymph # (Auto) 1.0 [place] # (Auto) 1.1 H Eos # (Auto) 0.0 Baso # (Auto) 0.0 Neutrophils % (Manual) 92 H Band Neutrophils % 5 H Lymphocytes % (Manual) 2 L Monocytes % (Manual) 1 Platelet Estimate Slightly increased H Hypochromasia (manual) Slight Poikilocytosis (manual Slight Anisocytosis (manual) Moderate Target Cells Slight Ovalocytes Slight APTT 43 H D Puncture Site Rbr pCO2 63 H pO2 98 HCO3 37.0 H ABG pH 7.43 ABG Total CO2 43.7 H ABG O2 Saturation 99.2 H ABG Base Excess 15.5 H ABG Hemoglobin 8.3 L ABG Carboxyhemoglobin 2.5 H POC ABG HHb (Measured) 0.8 ABG Methemoglobin 1.4 Bill Test Pos A-a O2 Difference 287.0 Respiratory Index 2.9 Hgb O2 Saturation 95.4 Liter Flow 30.0 FiO2 65.0 Crit Value Called To Md cheri marrero Crit Value Called By R alrt trial manager Crit Value Read Back Y Blood Gas Notified Time 540 Sodium Potassium Chloride Carbon Dioxide Anion Gap BUN Creatinine Est GFR ( Amer) Est GFR (Non-Af Amer) Random Glucose Calcium Phosphorus Magnesium 10/17/17 05:58 WBC RBC Hgb Hct MCV MCH MCHC RDW Plt Count MPV Neut % (Auto) Lymph % (Auto) [place] % (Auto) Eos % (Auto) Baso % (Auto) Neut # (Auto) Lymph # (Auto) [place] # (Auto) Eos # (Auto) Baso # (Auto) Neutrophils % (Manual) Band Neutrophils % Lymphocytes % (Manual) Monocytes % (Manual) Platelet Estimate Hypochromasia (manual) Poikilocytosis (manual Anisocytosis (manual) Target Cells Ovalocytes APTT Puncture Site pCO2 pO2 HCO3 ABG pH ABG Total CO2 ABG O2 Saturation ABG Base Excess ABG Hemoglobin ABG Carboxyhemoglobin POC ABG HHb (Measured) ABG Methemoglobin Bill Test A-a O2 Difference Respiratory Index Hgb O2 Saturation Liter Flow FiO2 Crit Value Called To Crit Value Called By Crit Value Read Back Blood Gas Notified Time Sodium 145 Potassium 3.0 L Chloride 94 L Carbon Dioxide 42 H* Anion Gap 12 BUN 20 H Creatinine 0.4 L Est GFR ( Amer) > 60 Est GFR (Non-Af Amer) > 60 Random Glucose 67 Calcium 8.3 L Phosphorus 5.6 H Magnesium 1.4 L Critical Care Progress Note - Nutrition Nutrition: Nutrition Category Date Time Status Consistent Carbohydrate [DIET] Diets 10/16/17 Breakfast Active Attending/Attestation - Attestation I have personally seen and examined this patient.: Yes I have fully participated in the care of the patient.: Yes I have reviewed all pertinent clinical information: Yes Notes (Text): 10/17/17 19:13 pt with PE IVC filter ?lung mass may need biopsy spoke to family
[2017-10-17] MEDS: Magnesium Sulfate 1 gm in D5W 1 GM/100 ML BAG IVPB SCH ×2 (12:15→13:08)
--- NOTE | 2017-10-17 12:52 | PCM.SURG1 ---
Surgeon's Initial Post Op Note - Surgeon's Notes Surgeon: Santana Chavez MD Senior Project Leader/Team Lead: NONE Pre-Operative Diagnosis: DVT, PE Operative Findings: US showed right femoral vein DVT Post-Operative Diagnosis: DVT, PE Operation Performed: Placement of an IVC filter in the infrarenal IVC Specimen/Specimens Removed: NONE Estimated Blood Loss: EBL {In ML}: 3 Blood Products Given: N/A Drains Used: No Drains Post-Op Condition: Fair Date of Surgery/Procedure: 10/17/17 Time of Surgery/Procedure: 12:50
--- NOTE | 2017-10-17 13:02 | SPECPROC ---
PROCEDURE: Date of procedure: 10/17/2017 Procedure: Inferior vena cava filter insertion, CPT 45456 Medications: 6cc 1% lidocaine HISTORY: DVT, pulmonary embolism TECHNIQUE: Following informed consent and procedure time-out, the patient is placed supine on the interventional table. Patient right groin was prepped and draped in the usual sterile fashion. Ultrasound showed thrombus with the right common femoral vein. After skin was anesthetized with 1% lidocaine, the femoral vein was accessed with micropuncture technique. The introducer sheath of an IVC filter was advanced over wire and positioned within the inferior vena cava and an inferior vena cavagram was performed. The inferior vena cava is normal without evidence of thrombus. The inflow of the right and left renal veins were noted. There is no venous anomalies. A retrievable filter was then placed within the infrarenal IVC. Following IVC filter placement, the sheath was removed and pressure was applied to Pt's right groin until hemostasis was achieved. A dressing was applied. IMPRESSION: Placement of retrievable filter within the infrarenal IVC.
--- NOTE | 2017-10-17 13:06 | CARD ---
APPROVED REPORT EKG Measurement Heart [id number] ND 146P [id number] <Conclusion> Sinus tachycardia ST & T wave abnormality, consider inferior ischemia ST & T wave abnormality, consider anterolateral ischemia Abnormal ECG
--- NOTE | 2017-10-17 13:44 | CP.PCM.PN ---
Subjective - Date & Time of Evaluation Date of Evaluation: 10/17/17 Time of Evaluation: 13:38 - Subjective Subjective: CHIEF COMPLAINTS TODAY : LESS SOB ROS. HEENT : N. Resp : No hemoptysis Cardio : No anginal CP, PND, orthopnea, palpitation GI : No abd.pain, n/v ,diarrhea or GI bleeding . HYDRAULIC B[employer]LET [employer]ER : No headache, vertigo, focal deficit. Musculoskel : No joint swelling , Derm : No rash Psych : Normal affect. Ext : No swelling ,calf pain PE. Pt. is alert awake in no distress. V.S As noted in the chart Head ,ear nose,throat and eyes : Normal. Neck : Supple with normal carotids. Lungs: Clear air entry.RALES LESS Heart : S1 & S2 normal with S4. No murmur. Abd : Soft non tender with normal bowel sounds. Neuro : Moves all ext. with no localized deficit. Ext : No edema with intact pulses.Non tender calves Derm : No rashes or decubitus ulcer. LABS/RADIOLOGY: WBC IS UP ASSESSMENT/PLAN : S/P IVC FILTER WILL STILL NEED ANTICOAGULATION FOR A. FB AND COR STENT , ELIQUIS 5 MG BID IV LASIX , BICARB 42 CHECK ECHO IV AB Objective - Vital Signs/Intake and Output Vital Signs (last 24 hours): Temp Pulse Resp BP Pulse Ox 98.8 F 120 H 32 H 119/61 94 L 10/17/17 12:00 10/17/17 13:00 10/17/17 13:00 10/17/17 12:20 10/17/17 13:00 Intake and Output: 10/17/17 10/17/17 11:59 23:59 Intake Total 515.2 230 Output Total 260 500 Balance 255.2 -270 - Medications Medications: Current Medications Acetaminophen (Tylenol 325mg Tab) 650 mg PO Q6 PRN PRN Reason: PAIN + FEVER Last Admin: 10/16/17 17:24 Dose: 650 mg Budesonide (Pulmicort Respules) 0.5 mg IH RQ12 [facility] Last Admin: 10/17/17 07:30 Dose: 0.5 mg Enoxaparin Sodium (Lovenox) 60 mg SC Q12 [facility] Last Admin: 10/17/17 11:16 Dose: 60 mg Folic Acid (Folic Acid) 1 mg PO DAILY [facility] Last Admin: 10/17/17 11:27 Dose: 1 mg Furosemide (Lasix) 40 mg IVP DAILY [facility] Last Admin: 10/17/17 11:26 Dose: 40 mg Meropenem 500 mg/ Sodium (Chloride) 100 mls @ 100 mls/hr IVPB Q8 [facility] PRN Reason: Protocol Last Admin: 10/17/17 05:34 Dose: 100 mls/hr Lorazepam (Ativan) 0.5 mg IVP Q8H PRN PRN Reason: Anxiety Last Admin: 10/16/17 17:36 Dose: 0.5 mg Montelukast Sodium (Singulair) 10 mg PO HS [facility] Multivitamins (Hexavitamin) 1 tab PO DAILY [facility] Last Admin: 10/17/17 11:26 Dose: 1 tab Pantoprazole Sodium (Protonix Ec Tab) 40 mg PO DAILY [facility] Last Admin: 10/17/17 11:27 Dose: 40 mg Rosuvastatin Calcium (Crestor) 10 mg PO HS [facility] Last Admin: 10/16/17 21:15 Dose: 10 mg - Labs Labs: 10/17/17 05:55 10/17/17 05:58 PT 31.2 SECONDS (9.7-12.2) H* 10/16/17 09:26 INR 2.6 10/16/17 09:26 APTT 43 SECONDS (21-34) H D 10/17/17 05:55
[2017-10-17] MEDS ORDERED: Metoprolol 1 mg/ml Inj IVP ONE (16:15)
--- NOTE | 2017-10-17 18:13 | CP.PCM.HP ---
History of Present Illness - History of Present Illness History of Present Illness: pt came with fever sob and bilateral pulmonary anyurysm to icu Present on Admission - Present on Admission Any Indicators Present on Admission: Yes Review of Systems - Review of Systems Systems not reviewed;Unavailable: Acuity of Condition Past Patient History - Past Medical History & Family History Past Medical History?: Yes - Past Social History Smoking Status: Never Smoked - CARDIAC Hx Congestive Heart Failure: Yes - PULMONARY Hx Asthma: Yes Hx Chronic Obstructive Pulmonary Disease (COPD): Yes (emphysema) Hx Emphysema: Yes - NEUROLOGICAL Hx Neurological Disorder: No - HEENT Hx Cataracts: Yes - RENAL Hx Chronic Kidney Disease: No - ENDOCRINE/METABOLIC Hx Diabetes Mellitus Type 2: Yes - HEMATOLOGICAL/ONCOLOGICAL Hx Blood Disorders: No - INTEGUMENTARY Hx Dermatological Problems: No - MUSCULOSKELETAL/RHEUMATOLOGICAL Hx Falls: No - GASTROINTESTINAL Hx Gastrointestinal Disorders: No Hx Gastroesophageal Reflux: Yes - GENITOURINARY/GYNECOLOGICAL Hx Genitourinary Disorders: No - PSYCHIATRIC Hx Anxiety: Yes Hx Substance Use: No - SURGICAL HISTORY Hx Surgeries: Yes Hx Cataract Extraction: Yes Hx Mastectomy: Yes Other/Comment: R mastectomy 8 yrs ago L mastectomy 6 yrs ago - ANESTHESIA Hx Anesthesia: Yes Hx Anesthesia Reactions: No Meds Allergies/Adverse Reactions: Allergies Allergy/AdvReac Type Severity Reaction Status Date / Time adhesive tape Allergy Verified 08/30/17 21:45 latex Allergy Verified 08/30/17 21:45 Physical Exam - Constitutional Appears: In Acute Distress - Head Exam Head Exam: ATRAUMATIC - Eye Exam Eye Exam: Normal appearance Pupil Exam: PERRL - ENT Exam ENT Exam: Mucous Membranes Moist - Neck Exam Neck exam: Positive for: Full Rom - Respiratory Exam Respiratory Exam: Decreased Breath Sounds, Wheezes - Cardiovascular Exam Cardiovascular Exam: Tachycardia - GI/Abdominal Exam GI & Abdominal Exam: Normal Bowel Sounds - Rectal Exam Rectal Exam: NORMAL INSPECTION - Extremities Exam Extremities exam: Positive for: normal inspection - Neurological Exam Additional comments: in bed - Psychiatric Exam Psychiatric exam: Depressed - Skin Skin Exam: Pallor Results - Vital Signs Recent Vital Signs: Last Vital Signs Temp 98.8 F 10/17/17 12:00 Pulse 112 H 10/17/17 16:21 Resp 36 H 10/17/17 16:21 BP 91/48 L 10/17/17 16:21 Pulse Ox 91 L 10/17/17 16:21 - Labs Result Diagrams: 10/17/17 05:55 03/26/18 05:58 Labs: Laboratory Results - last 24 hr 10/17/17 10/17/17 10/17/17 04:55 05:55 05:55 WBC 23.5 H RBC 3.40 L Hgb 8.6 L Hct 26.7 L MCV 78.6 L MCH 25.2 L MCHC 32.1 L RDW 23.6 H Plt Count 493 H MPV 8.0 Neut % (Auto) 91.0 H Lymph % (Auto) 4.1 L [place] % (Auto) 4.8 Eos % (Auto) 0.0 Baso % (Auto) 0.1 Neut # (Auto) 21.4 H Lymph # (Auto) 1.0 [place] # (Auto) 1.1 H Eos # (Auto) 0.0 Baso # (Auto) 0.0 Neutrophils % (Manual) 92 H Band Neutrophils % 5 H Lymphocytes % (Manual) 2 L Monocytes % (Manual) 1 Platelet Estimate Slightly increased H Hypochromasia (manual) Slight Poikilocytosis (manual Slight Anisocytosis (manual) Moderate Target Cells Slight Ovalocytes Slight APTT 43 H D Puncture Site Rbr pCO2 63 H pO2 98 HCO3 37.0 H ABG pH 7.43 ABG Total CO2 43.7 H ABG O2 Saturation 99.2 H ABG Base Excess 15.5 H ABG Hemoglobin 8.3 L ABG Carboxyhemoglobin 2.5 H POC ABG HHb (Measured) 0.8 ABG Methemoglobin 1.4 Blil Test Pos A-a O2 Difference 287.0 Respiratory Index 2.9 Hgb O2 Saturation 95.4 Liter Flow 30.0 FiO2 65.0 Crit Value Called To Md cheri marrero Crit Value Called By Arielle gao date night sitter Crit Value Read Back Y Blood Gas Notified Time 540 Sodium Potassium Chloride Carbon Dioxide Anion Gap BUN Creatinine Est GFR ( Amer) Est GFR (Non-Af Amer) Random Glucose Calcium Phosphorus Magnesium 10/17/17 05:58 WBC RBC Hgb Hct MCV MCH MCHC RDW Plt Count MPV Neut % (Auto) Lymph % (Auto) [place] % (Auto) Eos % (Auto) Baso % (Auto) Neut # (Auto) Lymph # (Auto) [place] # (Auto) Eos # (Auto) Baso # (Auto) Neutrophils % (Manual) Band Neutrophils % Lymphocytes % (Manual) Monocytes % (Manual) Platelet Estimate Hypochromasia (manual) Poikilocytosis (manual Anisocytosis (manual) Target Cells Ovalocytes APTT Puncture Site pCO2 pO2 HCO3 ABG pH ABG Total CO2 ABG O2 Saturation ABG Base Excess ABG Hemoglobin ABG Carboxyhemoglobin POC ABG HHb (Measured) ABG Methemoglobin Bill Test A-a O2 Difference Respiratory Index Hgb O2 Saturation Liter Flow FiO2 Crit Value Called To Crit Value Called By Crit Value Read Back Blood Gas Notified Time Sodium 145 Potassium 3.0 L Chloride 94 L Carbon Dioxide 42 H* Anion Gap 12 BUN 20 H Creatinine 0.4 L Est GFR ( Amer) > 60 Est GFR (Non-Af Amer) > 60 Random Glucose 67 Calcium 8.3 L Phosphorus 5.6 H Magnesium 1.4 L Assessment & Plan - Assessment and Plan (Free Text) Assessment: ac fever r/o sepses ac pulmonary embolism bilateral aneamia sever copd Plan: as per orders - Date & Time Date: 10/17/17 Time: 18:14
--- NOTE | 2017-10-17 19:54 | CP.PCM.PN ---
Subjective - Date & Time of Evaluation Date of Evaluation: 10/17/17 Time of Evaluation: 19:53 - Subjective Subjective: CHIEF COMPLAINTS TODAY : AFEBRILE, AAO. S/P IVC FILTER 10/17/17. ON HEPARIN DRIP. Denies shortness of breath Denies chest pain. ROS. HEENT : N. Resp : No SOB wheezing, cough Cardio : No CP, PND orthopnea GI : No abd. Pain, n/v PACKER DENTURE : No headache , focal deficit. Musculoskel : N Ext. : Pedal pulses intact, no edema or calf pain Derm : N Psych : N. PE. Pt. is alert awake in no distress. V.S As noted in the chart Head ,ear nose,throat and eyes : Normal. Neck : Supple with normal carotids. Lungs: B/L RHONCHI RIGHT> lEFT BASE Heart : S1 & S2 normal . . No murmur. S4 + Abd : Soft non tender with normal bowel sounds. Neuro : Moves all ext. with no localized deficit. Ext : No edema with intact pulses. Neg. calf tenderness , LT. BIG TOE BLUISH DISCOLORATION Derm : No rashes or decubitus ulcer. Radiology/Labs . wbc 23.5 H/H 8.6/2 6.7 PLATELETS 413 cREATININE 0.4/bun 20. PRO CALCITONIN LEVEL HIGH. Objective - Vital Signs/Intake and Output Vital Signs (last 24 hours): Temp Pulse Resp BP Pulse Ox 98.8 F 114 H 29 H 108/54 L 97 10/17/17 16:00 10/17/17 19:20 10/17/17 19:20 10/17/17 19:20 10/17/17 19:20 Intake and Output: 10/17/17 10/18/17 18:59 06:59 Intake Total 744.4 0 Output Total 1380 100 Balance -635.6 -100 - Medications Medications: Current Medications Acetaminophen (Tylenol 325mg Tab) 650 mg PO Q6 PRN PRN Reason: PAIN + FEVER Last Admin: 10/16/17 17:24 Dose: 650 mg Budesonide (Pulmicort Respules) 0.5 mg IH RQ12 [facility] Last Admin: 10/17/17 07:30 Dose: 0.5 mg Enoxaparin Sodium (Lovenox) 60 mg SC Q12 [facility] Last Admin: 10/17/17 11:16 Dose: 60 mg Folic Acid (Folic Acid) 1 mg PO DAILY [facility] Last Admin: 10/17/17 11:27 Dose: 1 mg Furosemide (Lasix) 40 mg IVP DAILY [facility] Last Admin: 10/17/17 11:26 Dose: 40 mg Meropenem 500 mg/ Sodium (Chloride) 100 mls @ 100 mls/hr IVPB Q8 JENNIFER PRN Reason: Protocol Last Admin: 10/17/17 14:17 Dose: 100 mls/hr Lorazepam (Ativan) 0.5 mg IVP Q8H PRN PRN Reason: Anxiety Last Admin: 10/17/17 17:09 Dose: 0.5 mg Losartan Potassium (Cozaar) 25 mg PO DAILY [facility] Montelukast Sodium (Singulair) 10 mg PO HS [facility] Multivitamins (Hexavitamin) 1 tab PO DAILY [facility] Last Admin: 10/17/17 11:26 Dose: 1 tab Pantoprazole Sodium (Protonix Ec Tab) 40 mg PO DAILY [facility] Last Admin: 10/17/17 11:27 Dose: 40 mg Rosuvastatin Calcium (Crestor) 10 mg PO HS [facility] Last Admin: 10/16/17 21:15 Dose: 10 mg - Labs Labs: 10/17/17 05:55 10/17/17 05:58 PT 31.2 SECONDS (9.7-12.2) H* 10/16/17 09:26 INR 2.6 10/16/17 09:26 APTT 43 SECONDS (21-34) H D 10/17/17 05:55 Assessment and Plan (1) Pulmonary embolism, bilateral Status: Acute (2) Acute CHF Status: Acute (3) Pneumonia Status: Acute (4) PVD (peripheral vascular disease) Status: Acute (5) Type II diabetes mellitus Status: Acute (6) History of bilateral mastectomy Status: Acute - Assessment and Plan (Free Text) Assessment: IMPRESSION; PULMONARY EMBOLISM/PULMONARY INFARCT R/O PNEUMONIA SUPERIMPOSED. CONGESTIVE HEART FAILURE. EXACERBATION OF COPD. DIABETES MELLITUS.. CA OF BREAST W B/L MASTECTOMY. PVD. PLAN. PATIENT ON HEPARIN DRIP PANCULTURE. STARTED IV MERREM 500 MG iv PIGGYBACK EVERY 8 HOURLY, CURRENTLY FOR POSSIBLE SUPERIMPOSED PNEUMONIA/ PROBABLE SEPSIS.10/15/17. PATIENT GOT ONE DOSE OF DOXYCYCLINE NOTED. SPUTUM GRAM STAIN AND CULTURE.-P iv FLUIDS PER SURGICAL ASSISTANT CERTIFIED .CASE DISCUSSED WITH STAFF
--- NOTE | 2017-10-17 23:15 | CARD ---
APPROVED REPORT EXAM: Two-dimensional and M-mode echocardiogram with Doppler and color Doppler. Other Information Quality : LimitedRhythm : NSR INDICATION CAD Pulmonary Embolism Congestive Heart Failure COPD REPEAT ECHO, ELEVATED TROPONIN,LIMITED STUDY Mitral Valve MV E Jwzebhhu09.6cm/sMV A Tkigxpqs40.9cm/s Tricuspid Valve TR Peak Qhvokaph269pm/sTR Peak Gr.[id number] LEFT VENTRICLE The left ventricle is normal size. There is normal left ventricular wall thickness. Left ventricle systolic function is normal. The Ejection Fraction is 65-70%. There is a flattened septum consistent with right ventricle pressure overload. Transmitral Doppler flow pattern is Grade I-abnormal relaxation pattern. There is no ventricular septal defect visualized. RIGHT VENTRICLE The right ventricle is moderately to severely dilated. The right ventricular systolic function is normal. ATRIA The left atrium is mildly dilated. The right atrium is moderately dilated. AORTIC VALVE The aortic valve is mildly sclerotic. The aortic valve is tri-cuspid. No aortic regurgitation is present. There is no aortic valvular stenosis. MITRAL VALVE The mitral valve is normal in structure. There is no evidence of mitral valve prolapse. There is no mitral valve regurgitation noted. TRICUSPID VALVE The tricuspid valve is normal in structure. There is mild tricuspid regurgitation. Right ventricular systolic pressure is estimated at 40-50 mmHg. There is moderate-severe pulmonary hypertension. PULMONIC VALVE The pulmonic valve is not well visualized. There is no pulmonic valvular regurgitation. GREAT VESSELS The aortic root is normal in size. The IVC is normal in size and collapses >50% with inspiration. PERICARDIAL EFFUSION There is no pericardial effusion. <Conclusion> Left ventricle systolic function is normal. The Ejection Fraction is 65-70%. There is a flattened septum consistent with right ventricle pressure overload. Transmitral Doppler flow pattern is Grade I-abnormal relaxation pattern. The right ventricle is moderately to severely dilated. There is moderate-severe pulmonary hypertension.
[2017-10-18] MEDS: Meropenem 500 MG in Sodium Chloride 0.9% 100 ML IVPB SCH ×3 (05:37→21:35)
[2017-10-18 05:57] LABS: BASO % 0.1 % (0.0-2.0); HEMOGLOBIN 8.5 g/dL (11.0-16.0); LYMPH % 3.5 % (20.0-40.0); MEAN CELL VOLUME 79.5 fL (81.0-99.0); MEAN CORPUSCULAR HEMOGLOBIN 25.5 pg (27.0-31.0); MEAN CORPUSCULAR HGB CONC 32.1 g/dL (33.0-37.0); MEAN PLATELET VOLUME 7.9 fL (7.2-11.7); MONO # 1.3 K/uL (0.0-0.8); MONO % 4.4 % (0.0-10.0); NEUT # 26.6 K/uL (1.8-7.0); NRBC % 0.1 % (0.0-2.0); PLATELET COUNT 563 K/uL (130-400); RBC 3.33 Mil/uL (3.80-5.20); RED CELL DISTRIBUTION WIDTH 23.6 % (11.5-14.5)
[2017-10-18 07:20] LABS: ALB/GLOB RATIO 0.7 (1.0-2.1); ALBUMIN 2.6 g/dL (3.5-5.0); ALT/SGPT 15 U/L (9-52); AST/SGOT 21 U/L (14-36); BLOOD UREA NITROGEN 18 mg/dL (7-17); CALCIUM 8.5 mg/dl (8.6-10.4); GFR AFRICAN-AMERICAN > 60; GFR NON-AFRICAN AMERICAN > 60
[2017-10-18] MEDS: Budesonide 0.25 mg/2 ml Inhal Susp UD IH SCH (07:40)
[2017-10-18 08:10] LABS: ANISOCYTOSIS MODERATE; BANDS 2 % (0-2); HYPOCHROMIC MODERATE; LYMPHOCYTE 3 % (20-40); MONOCYTE 2 % (0-10); MYELOCYTE 1 % (0-0); NEUTROPHIL 92 % (50-75); PLATELET ESTIMATE INCREASED (NORMAL); TOTAL CELLS COUNTED 100
[2017-10-18 08:11] LABS: TOXIC GRANULATION PRESENT
[2017-10-18 08:12] LABS: POIKILOCYTOSIS SLIGHT
--- NOTE | 2017-10-18 08:35 | RAD ---
HISTORY: Shortness of breath COMPARISON: 10/15/2017. FINDINGS: LUNGS: There is pulmonary hyperinflation. There is patchy airspace disease in the right mid lung and left lower lobe. PLEURA: No significant pleural effusion identified, no pneumothorax apparent. CARDIOVASCULAR: The heart is normal in size. Status post CABG. Atherosclerotic aortic arch calcifications are present. OSSEOUS STRUCTURES: No significant abnormalities. VISUALIZED UPPER ABDOMEN: Normal. OTHER FINDINGS: None. IMPRESSION: Multifocal pneumonia in the right mid lung and left lower lobe. Follow-up is advised.
[2017-10-18] MEDS ORDERED: Potassium Chloride 20 mEq/15 ml LIQ UD PO ONE ×2 (09:15→10:30)
[2017-10-18] MEDS ORDERED: POLYETHYLENE GLYCOL 3350 17 GM/Dose PACKET PO ONE (09:44)
[2017-10-18] MEDS ORDERED: LETROZOLE 2.5 MG PO SCH (10:00)
[2017-10-18] MEDS: Multiple Vitamins Tab PO SCH (10:38)
[2017-10-18] MEDS: Pantoprazole 40 mg EC Tab PO SCH (10:38)
[2017-10-18] MEDS: Enoxaparin 60 mg Syringe SC SCH ×2 (10:38→21:36)
--- NOTE | 2017-10-18 11:03 | CP.CCUPN ---
<Damari Sanchez - Last Filed: 10/18/17 15:33> CCU Subjective - Physician Review Subjective (Free Text): 10/18/17 11:02 Patient seen and examined at bedside. Per nursing no acute events overnight. Patient is awake and alert. Up eating breakfast this morning. SOB improving. No BM in 2 days. CCU Objective - Vital Signs / Intake & Output Vital Signs (Last 4 hours): Vital Signs Pulse Resp BP 10/18/17 10:38 118/55 L 10/18/17 07:56 32 H 10/18/17 07:21 134 H 32 H 139/53 L Intake and Output (Last 8hrs): Intake & Output 10/17/17 10/18/17 10/18/17 22:59 06:59 14:59 Intake Total 280 200 Output Total 860 140 0 Balance -580 60 0 Weight 53.66 kg Intake: Intake, IV Amount 100 100 Left Forearm 100 100 Oral 180 100 Output: Urine 860 140 0 Urethral (Rico) 860 140 0 Other: # Bowel Movements 0 1 - Physical Exam Head: Positive for: Atraumatic, Normocephalic Pupils: Positive for: PERRL Extroacular Muscles: Positive for: EOMI Conjunctiva: Positive for: Normal Mouth: Positive for: Moist Mucous Membranes Respiratory/Chest: Positive for: Rhonchi Cardiovascular: Positive for: Normal S1, S2, Tachycardic Abdomen: Positive for: Normal Bowel Sounds. Negative for: Tenderness Upper Extremity: Positive for: Normal Inspection Lower Extremity: Positive for: Edema Skin: Positive for: Warm, Dry, Normal Color Psychiatric: Positive for: Alert, Oriented x 3 - Medications Active Medications: Active Medications Generic Name Dose Route Start Last Admin Trade Name Freq PRN Reason Stop Dose Admin Acetaminophen 650 mg 10/16/17 12:00 10/16/17 17:24 Tylenol 325mg Tab PO 650 mg Q6 PRN Administration PAIN + FEVER Budesonide 0.5 mg 10/16/17 08:00 10/18/17 07:40 Pulmicort Respules IH 0.5 mg RQ12 JENNIFER Administration Enoxaparin Sodium 60 mg 10/17/17 11:15 10/18/17 10:38 Lovenox SC 60 mg Q12 JENNIFER Administration Folic Acid 1 mg 10/16/17 10:00 10/18/17 10:38 Folic Acid PO 1 mg DAILY JENNIFER Administration Furosemide 40 mg 10/16/17 10:00 10/18/17 10:38 Lasix IVP 40 mg DAILY JENNIFER Administration Meropenem 500 mg/ Sodium 100 mls @ 100 mls/hr 10/16/17 06:00 10/18/17 05:37 Chloride IVPB 100 mls/hr Q8 JENNIFER Administration Protocol Ipratropium [place] 0.5 mg 10/18/17 10:00 Atrovent IH RQ6 JENNIFER Lorazepam 0.5 mg 10/16/17 17:20 10/18/17 02:07 Ativan IVP 0.5 mg Q8H PRN Administration Anxiety Losartan Potassium 25 mg 10/18/17 10:00 10/18/17 10:38 Cozaar PO 25 mg DAILY JENNIFER Administration Montelukast Sodium 10 mg 10/17/17 22:00 10/17/17 21:13 Singulair PO 10 mg HS JENNIFER Administration Multivitamins 1 tab 10/16/17 10:00 10/18/17 10:38 Hexavitamin PO 1 tab DAILY JENNIFER Administration Pantoprazole Sodium 40 mg 10/16/17 10:00 10/18/17 10:38 Protonix Ec Tab PO 40 mg DAILY JENNIFER Administration Rosuvastatin Calcium 10 mg 10/16/17 22:00 10/17/17 21:13 Crestor PO 10 mg HS JENNIFER Administration - Patient Studies Lab Studies: Microbiology Studies 10/15/17 21:55 Blood Culture - Preliminary Blood NO GROWTH AFTER 48 HOURS 10/15/17 21:30 Blood Culture - Preliminary Blood NO GROWTH AFTER 48 HOURS 10/16/17 01:39 MRSA Culture (Admit) - Final Naris MRSA DETECTED 10/15/17 21:41 Urine Culture - Final Urine No Growth (<1,000 CFU/ML) Lab Studies 10/18/17 10/18/17 Range/Units 05:47 05:47 WBC 29.0 H (4.8-10.8) K/uL RBC 3.33 L (3.80-5.20) Mil/uL Hgb 8.5 L (11.0-16.0) g/dL Hct 26.5 L (34.0-47.0) % MCV 79.5 L (81.0-99.0) fL MCH 25.5 L (27.0-31.0) pg MCHC 32.1 L (33.0-37.0) g/dL RDW 23.6 H (11.5-14.5) % Plt Count 563 H (130-400) K/uL MPV 7.9 (7.2-11.7) fL Neut % (Auto) 92.0 H (50.0-75.0) % Lymph % (Auto) 3.5 L (20.0-40.0) % [place] % (Auto) 4.4 (0.0-10.0) % Eos % (Auto) 0.0 (0.0-4.0) % Baso % (Auto) 0.1 (0.0-2.0) % Neut # (Auto) 26.6 H (1.8-7.0) K/uL Lymph # (Auto) 1.0 (1.0-4.3) K/uL [place] # (Auto) 1.3 H (0.0-0.8) K/uL Eos # (Auto) 0.0 (0.0-0.7) K/uL Baso # (Auto) 0.0 (0.0-0.2) K/uL Neutrophils % (Manual) 92 H (50-75) % Band Neutrophils % 2 (0-2) % Lymphocytes % (Manual) 3 L (20-40) % Monocytes % (Manual) 2 (0-10) % Myelocytes % 1 H (0-0) % Toxic Granulation Present Platelet Estimate Increased H (NORMAL) Hypochromasia (manual) Moderate Poikilocytosis (manual Slight Anisocytosis (manual) Moderate Sodium 144 (132-148) mmol/L Potassium 3.2 L (3.6-5.2) mmol/L Chloride 92 L (98-107) mmol/L Carbon Dioxide 42 H* (22-30) mmol/L Anion Gap 13 (10-20) BUN 18 H (7-17) mg/dL Creatinine 0.5 L (0.7-1.2) mg/dL Est GFR ( Amer) > 60 Est GFR (Non-Af Amer) > 60 Random Glucose 109 H (65-105) mg/dL Calcium 8.5 L (8.6-10.4) mg/dl Phosphorus 4.7 H (2.5-4.5) mg/dL Magnesium 1.9 (1.6-2.3) mg/dL Total Bilirubin 0.5 (0.2-1.3) mg/dL AST 21 (14-36) U/L ALT 15 (9-52) U/L Alkaline Phosphatase 165 H D (38-126) U/L Total Protein 6.3 (6.3-8.3) g/dL Albumin 2.6 L (3.5-5.0) g/dL Globulin 3.7 (2.2-3.9) gm/dL Albumin/Globulin Ratio 0.7 L (1.0-2.1) Laboratory Results - last 24 hr 10/18/17 10/18/17 05:47 05:47 WBC 29.0 H RBC 3.33 L Hgb 8.5 L Hct 26.5 L MCV 79.5 L MCH 25.5 L MCHC 32.1 L RDW 23.6 H Plt Count 563 H MPV 7.9 Neut % (Auto) 92.0 H Lymph % (Auto) 3.5 L [place] % (Auto) 4.4 Eos % (Auto) 0.0 Baso % (Auto) 0.1 Neut # (Auto) 26.6 H Lymph # (Auto) 1.0 [place] # (Auto) 1.3 H Eos # (Auto) 0.0 Baso # (Auto) 0.0 Neutrophils % (Manual) 92 H Band Neutrophils % 2 Lymphocytes % (Manual) 3 L Monocytes % (Manual) 2 Myelocytes % 1 H Toxic Granulation Present Platelet Estimate Increased H Hypochromasia (manual) Moderate Poikilocytosis (manual Slight Anisocytosis (manual) Moderate Sodium 144 Potassium 3.2 L Chloride 92 L Carbon Dioxide 42 H* Anion Gap 13 BUN 18 H Creatinine 0.5 L Est GFR ( Amer) > 60 Est GFR (Non-Af Amer) > 60 Random Glucose 109 H Calcium 8.5 L Phosphorus 4.7 H Magnesium 1.9 Total Bilirubin 0.5 AST 21 ALT 15 Alkaline Phosphatase 165 H D Total Protein 6.3 Albumin 2.6 L Globulin 3.7 Albumin/Globulin Ratio 0.7 L Critical Care Progress Note - Nutrition Nutrition: Nutrition Category Date Time Status Consistent Carbohydrate [DIET] Diets 10/16/17 Breakfast Active Assessment/Plan - Assessment and Plan (Free Text) Assessment: Patient is a 72 year old female with past medical history of COPD, on home o2, 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 CT chest showed pulmonary emboli in the right pulmonary vein trunk and left lower lung, also suggestion of pulmonary infarct or mass in the lungs. Patient admitted to the ICU for closer monitoring -Stable, afebrile -Patient was started on heparin drip -S/P IVC filter by IR -Heparin drip discontinued, on Lovenox 60mg SC Q12H -Leukocytosis worsening, procalcitonin ordered -Antibiotics: Merrem 500mg Q8H IV -CXR 10/18 showing multifocal pneumonia in the right mid lung and left lower lobe -BNP 6810, Echo showed EF 65-70%, right ventricular pressure overload -Continue Lasix 20mg IVP daily -Continue Cozaar 25mg PO daily, Crestor 10mg PO HS -Continue Pulmicort, Ipratroprium, Singular -Venous dopplers show bilateral DVTs -Continue Protonix 40mg PO daily -Miralax 17gm x 1 for constipation -Will continue to monitor -Discussed with Dr Da Silva <Rey Da Silva - Last Filed: 10/18/17 18:11> CCU Objective - Vital Signs / Intake & Output Vital Signs (Last 4 hours): Vital Signs Temp Pulse Resp BP Pulse Ox 10/18/17 17:00 121 H 25 H 97 10/18/17 16:57 20 10/18/17 16:37 132 H 34 H 141/78 96 10/18/17 16:21 123 H 27 H 93/47 L 97 10/18/17 16:00 98.3 F 119 H 28 H 96 10/18/17 15:20 127 H 25 H 109/61 94 L 10/18/17 15:00 116 H 26 H 91 L 10/18/17 14:21 134 H 31 H 110/42 L 98 10/18/17 14:19 139 H 34 H 98 Intake and Output (Last 8hrs): Intake & Output 10/18/17 10/18/17 10/18/17 06:59 14:59 22:59 Intake Total 200 340 25 Output Total 140 775 100 Balance 60 -435 -75 Weight 118 lb 4.8 oz Intake: Intake, IV Amount 100 100 0 Left Antecubital 100 0 Left Forearm 100 Oral 100 240 25 Output: Urine 140 775 100 Urethral (Rico) 140 775 100 Emesis 0 0 Other: # Bowel Movements 1 1 0 - Medications Active Medications: Active Medications Generic Name Dose Route Start Last Admin Trade Name Freq PRN Reason Stop Dose Admin Acetaminophen 650 mg 10/16/17 12:00 10/16/17 17:24 Tylenol 325mg Tab PO 650 mg Q6 PRN Administration PAIN + FEVER Budesonide 0.5 mg 10/18/17 20:00 Pulmicort Respules IH RQ12 JENNIFER Enoxaparin Sodium 60 mg 10/17/17 11:15 10/18/17 10:38 Lovenox SC 60 mg Q12 JENNIFER Administration Folic Acid 1 mg 10/16/17 10:00 10/18/17 10:38 Folic Acid PO 1 mg DAILY JENNIFER Administration Furosemide 20 mg 10/18/17 13:33 Lasix IVP DAILY JENNIFER Meropenem 500 mg/ Sodium 100 mls @ 100 mls/hr 10/16/17 06:00 10/18/17 13:55 Chloride IVPB 100 mls/hr Q8 JENNIFER Administration Protocol Ipratropium [place] 0.5 mg 10/18/17 10:00 10/18/17 11:10 Atrovent IH 0.5 mg RQ6 JENNIFER Administration Lorazepam 0.5 mg 10/16/17 17:20 10/18/17 02:07 Ativan IVP 0.5 mg Q8H PRN Administration Anxiety Losartan Potassium 25 mg 10/18/17 10:00 10/18/17 10:38 Cozaar PO 25 mg DAILY JENNIFER Administration Montelukast Sodium 10 mg 10/17/17 22:00 10/17/17 21:13 Singulair PO 10 mg HS JENNIFER Administration Multivitamins 1 tab 10/16/17 10:00 10/18/17 10:38 Hexavitamin PO 1 tab DAILY JENNIFER Administration Pantoprazole Sodium 40 mg 10/16/17 10:00 10/18/17 10:38 Protonix Ec Tab PO 40 mg DAILY JENNIFER Administration Rosuvastatin Calcium 10 mg 10/16/17 22:00 10/17/17 21:13 Crestor PO 10 mg HS JENNIFER Administration - Patient Studies Lab Studies: Microbiology Studies 10/15/17 21:55 Blood Culture - Preliminary Blood NO GROWTH AFTER 48 HOURS 10/15/17 21:30 Blood Culture - Preliminary Blood NO GROWTH AFTER 48 HOURS Lab Studies 10/18/17 10/18/17 10/18/17 Range/Units 15:43 05:47 05:47 WBC 29.0 H (4.8-10.8) K/uL RBC 3.33 L (3.80-5.20) Mil/uL Hgb 8.5 L (11.0-16.0) g/dL Hct 26.5 L (34.0-47.0) % MCV 79.5 L (81.0-99.0) fL MCH 25.5 L (27.0-31.0) pg MCHC 32.1 L (33.0-37.0) g/dL RDW 23.6 H (11.5-14.5) % Plt Count 563 H (130-400) K/uL MPV 7.9 (7.2-11.7) fL Neut % (Auto) 92.0 H (50.0-75.0) % Lymph % (Auto) 3.5 L (20.0-40.0) % [place] % (Auto) 4.4 (0.0-10.0) % Eos % (Auto) 0.0 (0.0-4.0) % Baso % (Auto) 0.1 (0.0-2.0) % Neut # (Auto) 26.6 H (1.8-7.0) K/uL Lymph # (Auto) 1.0 (1.0-4.3) K/uL [place] # (Auto) 1.3 H (0.0-0.8) K/uL Eos # (Auto) 0.0 (0.0-0.7) K/uL Baso # (Auto) 0.0 (0.0-0.2) K/uL Neutrophils % (Manual) 92 H (50-75) % Band Neutrophils % 2 (0-2) % Lymphocytes % (Manual) 3 L (20-40) % Monocytes % (Manual) 2 (0-10) % Myelocytes % 1 H (0-0) % Toxic Granulation Present Platelet Estimate Increased H (NORMAL) Hypochromasia (manual) Moderate Poikilocytosis (manual Slight Anisocytosis (manual) Moderate Sodium 144 (132-148) mmol/L Potassium 3.2 L (3.6-5.2) mmol/L Chloride 92 L (98-107) mmol/L Carbon Dioxide 42 H* (22-30) mmol/L Anion Gap 13 (10-20) BUN 18 H (7-17) mg/dL Creatinine 0.5 L (0.7-1.2) mg/dL Est GFR ( Amer) > 60 Est GFR (Non-Af Amer) > 60 Random Glucose 109 H (65-105) mg/dL Calcium 8.5 L (8.6-10.4) mg/dl Phosphorus 4.7 H (2.5-4.5) mg/dL Magnesium 1.9 (1.6-2.3) mg/dL Total Bilirubin 0.5 (0.2-1.3) mg/dL AST 21 (14-36) U/L ALT 15 (9-52) U/L Alkaline Phosphatase 165 H D (38-126) U/L Total Protein 6.3 (6.3-8.3) g/dL Albumin 2.6 L (3.5-5.0) g/dL Globulin 3.7 (2.2-3.9) gm/dL Albumin/Globulin Ratio 0.7 L (1.0-2.1) Stool Occult Blood Positive H (NEGATIVE) Laboratory Results - last 24 hr 10/18/17 10/18/17 10/18/17 05:47 05:47 15:43 WBC 29.0 H RBC 3.33 L Hgb 8.5 L Hct 26.5 L MCV 79.5 L MCH 25.5 L MCHC 32.1 L RDW 23.6 H Plt Count 563 H MPV 7.9 Neut % (Auto) 92.0 H Lymph % (Auto) 3.5 L [place] % (Auto) 4.4 Eos % (Auto) 0.0 Baso % (Auto) 0.1 Neut # (Auto) 26.6 H Lymph # (Auto) 1.0 [place] # (Auto) 1.3 H Eos # (Auto) 0.0 Baso # (Auto) 0.0 Neutrophils % (Manual) 92 H Band Neutrophils % 2 Lymphocytes % (Manual) 3 L Monocytes % (Manual) 2 Myelocytes % 1 H Toxic Granulation Present Platelet Estimate Increased H Hypochromasia (manual) Moderate Poikilocytosis (manual Slight Anisocytosis (manual) Moderate Sodium 144 Potassium 3.2 L Chloride 92 L Carbon Dioxide 42 H* Anion Gap 13 BUN 18 H Creatinine 0.5 L Est GFR ( Amer) > 60 Est GFR (Non-Af Amer) > 60 Random Glucose 109 H Calcium 8.5 L Phosphorus 4.7 H Magnesium 1.9 Total Bilirubin 0.5 AST 21 ALT 15 Alkaline Phosphatase 165 H D Total Protein 6.3 Albumin 2.6 L Globulin 3.7 Albumin/Globulin Ratio 0.7 L Stool Occult Blood Positive H Critical Care Progress Note - Nutrition Nutrition: Nutrition Category Date Time Status Consistent Carbohydrate [DIET] Diets 10/16/17 Breakfast Active Attending/Attestation - Attestation I have personally seen and examined this patient.: Yes I have fully participated in the care of the patient.: Yes I have reviewed all pertinent clinical information: Yes Notes (Text): 10/18/17 18:10 patient seen and examined in the intensive care unit. Being treated for large pulmonary embolism echocardiogram consistent with right-sided strain H&H dropping Patient high risk for catheter directed thrombolysis Continue anticoagulation Continue treatment for pneumonia and COPD
[2017-10-18] MEDS: Ipratropium 0.02% Inhal Soln (0.5 mg/2.5 ml) UD IH SCH ×2 (11:10→19:30)
--- NOTE | 2017-10-18 12:54 | VASCLAB ---
PROCEDURE: Lower Extremity Venous Duplex Exam. HISTORY: b/l pe PRIORS: None. TECHNIQUE: Bilateral common femoral, femoral, popliteal and posterior tibial, peroneal and great saphenous veins were evaluated. Flow was assessed with color Doppler, compressibility, assessment of phasic flow and augmentation response. Report prepared by Tao Lipscomb, NESHA, RVT FINDINGS: RIGHT: 1. Common Femoral Vein: 1.1. Compressibility - Partial: Thrombus - Acute : Flow - Absent : Augmentation -None: Reflux - None. 2. Femoral Vein: 2.1. Compressibility - Partial: Thrombus - Acute : Flow - Absent : Augmentation -None: Reflux - None. 3. Popliteal Vein: 3.1. Compressibility - Partial: Thrombus - Acute : Flow - Absent : Augmentation -None: Reflux - None. 4. Posterior Tibial Vein: 4.1. Compressibility - Partial: Thrombus - Acute: Flow - Absent : Augmentation -None: Reflux - None. 5. Peroneal Vein: 5.1. Compressibility - Partial: Thrombus - Acute: Flow - Absent : Augmentation -None: Reflux - None. 6. Great Saphenous Vein: 6.1. Compressibility - Fully compressible: Thrombus - None: Flow - : Augmentation - : Reflux - . LEFT: 1. Common Femoral Vein: 1.1. Compressibility - Partial: Thrombus - Acute: Flow - Reduced : Augmentation -None: Reflux - None. 2. Femoral Vein: 2.1. Compressibility - Partial: Thrombus - Acute: Flow - Reduced : Augmentation -None: Reflux - None. 3. Popliteal Vein: 3.1. Compressibility - Fully compressible: Thrombus - None : Flow - Phasic: Augmentation -Normal: Reflux - None. 4. Posterior Tibial Vein: 4.1. Compressibility - Fully compressible: Thrombus - None: Flow - Phasic: Augmentation -Normal: Reflux - None. 5. Peroneal Vein: 5.1. Compressibility - Fully compressible: Thrombus - None: Flow - Phasic: Augmentation -Normal: Reflux - None. 6. Great Saphenous Vein: 6.1. Compressibility - Fully compressible: Thrombus - None: Flow - : Augmentation - : Reflux - . OTHER FINDINGS: JORDY Echols notified about the findings. IMPRESSION: Right: Acute thrombosis of the right common femoral, femoral, popliteal, posterior tibial, peroneal and soleal veins with severe reduction of the venous return. Left: Acute thrombosis of the left common femoral and proximal femoral veins with severe reduction of the venous return.
--- NOTE | 2017-10-18 13:40 | CP.PCM.PN ---
Subjective - Date & Time of Evaluation Date of Evaluation: 10/18/17 Time of Evaluation: 13:37 - Subjective Subjective: CHIEF COMPLAINTS TODAY : LESS SOB ROS. HEENT : N. Resp : No hemoptysis Cardio : No anginal CP, PND, orthopnea, palpitation GI : No abd.pain, n/v ,diarrhea or GI bleeding . BATTERY TESTER FIELD : No headache, vertigo, focal deficit. Musculoskel : No joint swelling , Derm : No rash Psych : Normal affect. Ext : No swelling ,calf pain PE. Pt. is alert awake in no distress. V.S As noted in the chart Head ,ear nose,throat and eyes : Normal. Neck : Supple with normal carotids. Lungs: Clear air entry.RALES LESS Heart : S1 & S2 normal with S4. No murmur. Abd : Soft non tender with normal bowel sounds. Neuro : Moves all ext. with no localized deficit. Ext : No edema with intact pulses.Non tender calves Derm : No rashes or decubitus ulcer. LABS/RADIOLOGY: WBC IS UP , ZOILA EXTENSIVE DVT ASSESSMENT/PLAN : IN VIEW OF ZOILA DVT WILL CONT. SC LOVENEX REDUCE LASIX 20 MG ONCE A DAY , BICARB 42 , URINE , 1660 CC ECHO FOR ANY NEW WALL MOTION/RV STRAIN IV AB , CXR , MULTI-LOBAR PNEUMONIA TELEMETRY Objective - Vital Signs/Intake and Output Vital Signs (last 24 hours): Temp Pulse Resp BP Pulse Ox 97.9 F 125 H 29 H 135/54 L 97 10/18/17 08:00 10/18/17 11:20 10/18/17 11:20 10/18/17 11:20 10/18/17 11:20 Intake and Output: 10/18/17 10/18/17 11:59 23:59 Intake Total 440 Output Total 115 Balance 325 - Medications Medications: Current Medications Acetaminophen (Tylenol 325mg Tab) 650 mg PO Q6 PRN PRN Reason: PAIN + FEVER Last Admin: 10/16/17 17:24 Dose: 650 mg Budesonide (Pulmicort Respules) 0.5 mg IH RQ12 [facility] Enoxaparin Sodium (Lovenox) 60 mg SC Q12 [facility] Last Admin: 10/18/17 10:38 Dose: 60 mg Folic Acid (Folic Acid) 1 mg PO DAILY [facility] Last Admin: 10/18/17 10:38 Dose: 1 mg Furosemide (Lasix) 20 mg IVP DAILY [facility] Meropenem 500 mg/ Sodium (Chloride) 100 mls @ 100 mls/hr IVPB Q8 JENNIFER PRN Reason: Protocol Last Admin: 10/18/17 05:37 Dose: 100 mls/hr Ipratropium [place] (Atrovent) 0.5 mg IH RQ6 JENNIFER Last Admin: 10/18/17 11:10 Dose: 0.5 mg Lorazepam (Ativan) 0.5 mg IVP Q8H PRN PRN Reason: Anxiety Last Admin: 10/18/17 02:07 Dose: 0.5 mg Losartan Potassium (Cozaar) 25 mg PO DAILY JENNIFER Last Admin: 10/18/17 10:38 Dose: 25 mg Montelukast Sodium (Singulair) 10 mg PO HS [facility] Last Admin: 10/17/17 21:13 Dose: 10 mg Multivitamins (Hexavitamin) 1 tab PO DAILY [facility] Last Admin: 10/18/17 10:38 Dose: 1 tab Pantoprazole Sodium (Protonix Ec Tab) 40 mg PO DAILY [facility] Last Admin: 10/18/17 10:38 Dose: 40 mg Rosuvastatin Calcium (Crestor) 10 mg PO HS [facility] Last Admin: 10/17/17 21:13 Dose: 10 mg - Labs Labs: 10/18/17 05:47 10/18/17 05:47 PT 31.2 SECONDS (9.7-12.2) H* 10/16/17 09:26 INR 2.6 10/16/17 09:26 APTT 43 SECONDS (21-34) H D 10/17/17 05:55
--- NOTE | 2017-10-18 16:22 | CP.PCM.PN ---
Subjective - Date & Time of Evaluation Date of Evaluation: 10/18/17 Time of Evaluation: 16:22 - Subjective Subjective: CHIEF COMPLAINTS TODAY : AFEBRILE, AAO. S/P IVC FILTER 10/17/17. LESS SOB DENIES CHEST PAIN ROS. HEENT : N. Resp : LESS SOB wheezing, cough Cardio : No CP, PND orthopnea GI : No abd. Pain, n/v DELIVERY RN : No headache , focal deficit. Musculoskel : N Ext. : Pedal pulses intact, no edema or calf pain Derm : N Psych : N. PE. Pt. is alert awake in no distress. V.S As noted in the chart Head ,ear nose,throat and eyes : Normal. Neck : Supple with normal carotids. Lungs: B/L RHONCHI RIGHT> lEFT BASE Heart : S1 & S2 normal . . No murmur. S4 + Abd : Soft non tender with normal bowel sounds. Neuro : Moves all ext. with no localized deficit. Ext : No edema with intact pulses. Neg. calf tenderness , LT. BIG TOE BLUISH DISCOLORATION Derm : No rashes or decubitus ulcer. Radiology/Labs . PRO CALCITONIN LEVEL HIGH. Objective - Vital Signs/Intake and Output Vital Signs (last 24 hours): Temp Pulse Resp BP Pulse Ox 98.3 F 119 H 28 H 109/61 96 10/18/17 16:00 10/18/17 16:00 10/18/17 16:00 10/18/17 15:20 10/18/17 16:00 Intake and Output: 10/18/17 10/18/17 06:59 18:59 Intake Total 400 340 Output Total 300 155 Balance 100 185 - Medications Medications: Current Medications Acetaminophen (Tylenol 325mg Tab) 650 mg PO Q6 PRN PRN Reason: PAIN + FEVER Last Admin: 10/16/17 17:24 Dose: 650 mg Budesonide (Pulmicort Respules) 0.5 mg IH RQ12 [facility] Enoxaparin Sodium (Lovenox) 60 mg SC Q12 JENNIFER Last Admin: 10/18/17 10:38 Dose: 60 mg Folic Acid (Folic Acid) 1 mg PO DAILY [facility] Last Admin: 10/18/17 10:38 Dose: 1 mg Furosemide (Lasix) 20 mg IVP DAILY [facility] Meropenem 500 mg/ Sodium (Chloride) 100 mls @ 100 mls/hr IVPB Q8 JENNIFER PRN Reason: Protocol Last Admin: 10/18/17 13:55 Dose: 100 mls/hr Ipratropium [place] (Atrovent) 0.5 mg IH RQ6 [facility] Last Admin: 10/18/17 11:10 Dose: 0.5 mg Lorazepam (Ativan) 0.5 mg IVP Q8H PRN PRN Reason: Anxiety Last Admin: 10/18/17 02:07 Dose: 0.5 mg Losartan Potassium (Cozaar) 25 mg PO DAILY [facility] Last Admin: 10/18/17 10:38 Dose: 25 mg Montelukast Sodium (Singulair) 10 mg PO HS [facility] Last Admin: 10/17/17 21:13 Dose: 10 mg Multivitamins (Hexavitamin) 1 tab PO DAILY [facility] Last Admin: 10/18/17 10:38 Dose: 1 tab Pantoprazole Sodium (Protonix Ec Tab) 40 mg PO DAILY [facility] Last Admin: 10/18/17 10:38 Dose: 40 mg Rosuvastatin Calcium (Crestor) 10 mg PO HS [facility] Last Admin: 10/17/17 21:13 Dose: 10 mg - Labs Labs: 10/18/17 05:47 10/18/17 05:47 PT 31.2 SECONDS (9.7-12.2) H* 10/16/17 09:26 INR 2.6 10/16/17 09:26 APTT 43 SECONDS (21-34) H D 10/17/17 05:55 Assessment and Plan (1) Pulmonary embolism, bilateral Status: Acute (2) Acute CHF Status: Acute (3) Pneumonia Status: Acute (4) PVD (peripheral vascular disease) Status: Acute (5) Type II diabetes mellitus Status: Acute (6) History of bilateral mastectomy Status: Acute - Assessment and Plan (Free Text) Assessment: IMPRESSION; PULMONARY EMBOLISM/PULMONARY INFARCT ? PNEUMONIA SUPERIMPOSED. CONGESTIVE HEART FAILURE. EXACERBATION OF COPD. DIABETES MELLITUS.. CA OF BREAST W B/L MASTECTOMY. PVD. PLAN. PATIENT ON HEPARIN DRIP PANCULTURE. CONTINUE IV MERREM 500 MG iv PIGGYBACK EVERY 8 HOURLY, CURRENTLY FOR POSSIBLE SUPERIMPOSED PNEUMONIA/ PROBABLE SEPSIS.10/15/17. PATIENT GOT ONE DOSE OF DOXYCYCLINE NOTED.10/17/17. ADD IV CLEOCIN 300MG IV Q8HRLY 10/18/17. 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
[2017-10-18] MEDS ORDERED: Budesonide 0.5 mg/2 ml Inhal Susp UD IH SCH (20:00)
[2017-10-18] MEDS: Clindamycin 300 MG in Sodium Chloride 0.9% 50 ML IVPB SCH (23:00)
--- NOTE | 2017-10-18 23:34 | CP.PCM.CON ---
History of Present Illness - History of Present Illness History of Present Illness: Consulted for EKOS lytic therapy drop in Hgb. will check stool guiac Likely not an ideal candidate for EKOS lytic therapy due to frailty But will reassess Past Patient History - Past Medical History & Family History Past Medical History?: Yes - Past Social History Smoking Status: Never Smoked - CARDIAC Hx Congestive Heart Failure: Yes - PULMONARY Hx Asthma: Yes Hx Chronic Obstructive Pulmonary Disease (COPD): Yes (emphysema) Hx Emphysema: Yes - NEUROLOGICAL Hx Neurological Disorder: No - HEENT Hx Cataracts: Yes - RENAL Hx Chronic Kidney Disease: No - ENDOCRINE/METABOLIC Hx Diabetes Mellitus Type 2: Yes - HEMATOLOGICAL/ONCOLOGICAL Hx Blood Disorders: No - INTEGUMENTARY Hx Dermatological Problems: No - MUSCULOSKELETAL/RHEUMATOLOGICAL Hx Falls: No - GASTROINTESTINAL Hx Gastrointestinal Disorders: No Hx Gastroesophageal Reflux: Yes - GENITOURINARY/GYNECOLOGICAL Hx Genitourinary Disorders: No - PSYCHIATRIC Hx Anxiety: Yes Hx Substance Use: No - SURGICAL HISTORY Hx Surgeries: Yes Hx Cataract Extraction: Yes Hx Mastectomy: Yes Other/Comment: R mastectomy 8 yrs ago L mastectomy 6 yrs ago - ANESTHESIA Hx Anesthesia: Yes Hx Anesthesia Reactions: No Meds Allergies/Adverse Reactions: Allergies Allergy/AdvReac Type Severity Reaction Status Date / Time adhesive tape Allergy Verified 08/30/17 21:45 latex Allergy Verified 08/30/17 21:45 - Medications Medications: Current Medications Acetaminophen (Tylenol 325mg Tab) 650 mg PO Q6 PRN PRN Reason: PAIN + FEVER Last Admin: 10/18/17 21:31 Dose: 650 mg Budesonide (Pulmicort Respules) 0.5 mg IH RQ12 [facility] Last Admin: 10/18/17 19:31 Dose: 0.5 mg Enoxaparin Sodium (Lovenox) 60 mg SC Q12 [facility] Last Admin: 10/18/17 21:36 Dose: 60 mg Folic Acid (Folic Acid) 1 mg PO DAILY [facility] Last Admin: 10/18/17 10:38 Dose: 1 mg Furosemide (Lasix) 20 mg IVP DAILY [facility] Meropenem 500 mg/ Sodium (Chloride) 100 mls @ 100 mls/hr IVPB Q8 JENNIFER PRN Reason: Protocol Last Admin: 10/18/17 21:35 Dose: 100 mls/hr Clindamycin Phosphate 300 mg/ (Sodium Chloride) 52 mls @ 100 mls/hr IVPB Q8H JENN[facility] PRN Reason: Protocol Ipratropium [place] (Atrovent) 0.5 mg IH RQ6 [facility] Last Admin: 10/18/17 19:30 Dose: 0.5 mg Lactobacillus Acidophilus (Bacid Acidophilus) 1 cap PO BID [facility] Lorazepam (Ativan) 0.5 mg IVP Q8H PRN PRN Reason: Anxiety Last Admin: 10/18/17 02:07 Dose: 0.5 mg Losartan Potassium (Cozaar) 25 mg PO DAILY [facility] Last Admin: 10/18/17 10:38 Dose: 25 mg Montelukast Sodium (Singulair) 10 mg PO HS [facility] Last Admin: 10/18/17 21:33 Dose: 10 mg Multivitamins (Hexavitamin) 1 tab PO DAILY [facility] Last Admin: 10/18/17 10:38 Dose: 1 tab Pantoprazole Sodium (Protonix Ec Tab) 40 mg PO DAILY [facility] Last Admin: 10/18/17 10:38 Dose: 40 mg Rosuvastatin Calcium (Crestor) 10 mg PO HS [facility] Last Admin: 10/18/17 21:32 Dose: 10 mg Results - Vital Signs Recent Vital Signs: Last Vital Signs Temp 98.3 F 10/18/17 16:00 Pulse 155 H 10/18/17 22:48 Resp 33 H 10/18/17 22:35 BP 90/42 L 10/18/17 19:20 Pulse Ox 88 L 10/18/17 19:20 - Labs Result Diagrams: 10/18/17 05:47 10/18/17 05:47 Labs: Laboratory Results - last 24 hr 10/18/17 10/18/17 10/18/17 05:47 05:47 15:43 WBC 29.0 H RBC 3.33 L Hgb 8.5 L Hct 26.5 L MCV 79.5 L MCH 25.5 L MCHC 32.1 L RDW 23.6 H Plt Count 563 H MPV 7.9 Neut % (Auto) 92.0 H Lymph % (Auto) 3.5 L [place] % (Auto) 4.4 Eos % (Auto) 0.0 Baso % (Auto) 0.1 Neut # (Auto) 26.6 H Lymph # (Auto) 1.0 [place] # (Auto) 1.3 H Eos # (Auto) 0.0 Baso # (Auto) 0.0 Neutrophils % (Manual) 92 H Band Neutrophils % 2 Lymphocytes % (Manual) 3 L Monocytes % (Manual) 2 Myelocytes % 1 H Toxic Granulation Present Platelet Estimate Increased H Hypochromasia (manual) Moderate Poikilocytosis (manual Slight Anisocytosis (manual) Moderate Sodium 144 Potassium 3.2 L Chloride 92 L Carbon Dioxide 42 H* Anion Gap 13 BUN 18 H Creatinine 0.5 L Est GFR ( Amer) > 60 Est GFR (Non-Af Amer) > 60 Random Glucose 109 H Calcium 8.5 L Phosphorus 4.7 H Magnesium 1.9 Total Bilirubin 0.5 AST 21 ALT 15 Alkaline Phosphatase 165 H D Total Protein 6.3 Albumin 2.6 L Globulin 3.7 Albumin/Globulin Ratio 0.7 L Stool Occult Blood Positive H
[2017-10-19] MEDS: Ipratropium 0.02% Inhal Soln (0.5 mg/2.5 ml) UD IH SCH ×3 (01:46→14:00)
[2017-10-19] MEDS: Meropenem 500 MG in Sodium Chloride 0.9% 100 ML IVPB SCH ×2 (05:45→14:00)
[2017-10-19 06:57] LABS: HEMOGLOBIN 7.9 g/dL (11.0-16.0); LYMPH % 3.3 % (20.0-40.0); MEAN CELL VOLUME 79.2 fL (81.0-99.0); MEAN CORPUSCULAR HGB CONC 31.5 g/dL (33.0-37.0); MEAN PLATELET VOLUME 7.7 fL (7.2-11.7); MONO # 1.5 K/uL (0.0-0.8); MONO % 4.9 % (0.0-10.0); NEUT # 28.5 K/uL (1.8-7.0); NEUT % 91.8 % (50.0-75.0); PLATELET COUNT 634 K/uL (130-400); RBC 3.17 Mil/uL (3.80-5.20); RED CELL DISTRIBUTION WIDTH 22.8 % (11.5-14.5); WHITE BLOOD COUNT 31.1 K/uL (4.8-10.8)
[2017-10-19] MEDS: Clindamycin 300 MG in Sodium Chloride 0.9% 50 ML IVPB SCH ×2 (07:00→20:02)
[2017-10-19 07:24] LABS: BLOOD UREA NITROGEN 22 mg/dL (7-17); CALCIUM 8.5 mg/dl (8.6-10.4); GFR AFRICAN-AMERICAN > 60; GFR NON-AFRICAN AMERICAN > 60
[2017-10-19 07:25] LABS: ALB/GLOB RATIO 0.7 (1.0-2.1); ALBUMIN 2.5 g/dL (3.5-5.0); ALT/SGPT 23 U/L (9-52); AST/SGOT 23 U/L (14-36)
[2017-10-19] MEDS ORDERED: Potassium Chloride 20 mEq/15 ml LIQ UD PO ONE (07:58)
[2017-10-19 08:19] LABS: ARTERIAL BLOOD GAS HCO3 39.4 mmol/L (21-28); ARTERIAL BLOOD GAS HEMOGLOBIN 11.6 g/dL (11.7-17.4); ARTERIAL BLOOD GAS O2 SAT 99.9 % (95-98); ARTERIAL BLOOD GAS PCO2 78 mm/Hg (35-45); ARTERIAL BLOOD GAS PH 7.39 (7.35-7.45); ARTERIAL BLOOD GAS PO2 379 mm/Hg (80-100); ARTERIAL BLOOD GAS TCO2 49.6 mmol/L (22-28)
[2017-10-19 08:23] LABS: LYMPHOCYTE 3 % (20-40); MONOCYTE 4 % (0-10); MYELOCYTE 1 % (0-0); NEUTROPHIL 92 % (50-75); TOTAL CELLS COUNTED 100
[2017-10-19 08:24] LABS: ANISOCYTOSIS SLIGHT; HYPOCHROMIC MODERATE; PLATELET ESTIMATE INCREASED (NORMAL); POIKILOCYTOSIS SLIGHT
[2017-10-19 08:25] LABS: BURR CELLS SLIGHT; MICROCYTOSIS SLIGHT; OVALOCYTES SLIGHT; TARGET CELLS SLIGHT
[2017-10-19 08:26] LABS: LARGE PLATELETS PRESENT
--- NOTE | 2017-10-19 08:41 | RAD ---
HISTORY: sob, pneumonia COMPARISON: Chest radiograph dated 10/18/2017 FINDINGS: LUNGS: Stable chronic prominence of the bilateral interstitial markings. Thickening/ scarring of the right minor fissure. Patchy left lower lobe atelectasis/infiltrate. PLEURA: No significant pleural effusion identified, no pneumothorax apparent. CARDIOVASCULAR: Prior sternotomy with sternal wires and surgical clips redemonstrated. Atherosclerotic aortic calcifications. Cardiomediastinal silhouette stably enlarged. OSSEOUS STRUCTURES: Unchanged. VISUALIZED UPPER ABDOMEN: Partially imaged inferior vena cava filter. OTHER FINDINGS: Left axillary surgical clips. IMPRESSION: No significant interval change.
--- NOTE | 2017-10-19 09:34 | CP.CCUPN ---
Addendum entered and electronically signed by Damari Sanchez DO 10/19/17 17:08: Patient became tachypnic on Bipap with use of accessory muscles. Decision was made to intubate. Patient was given etomidate 20mg IVP and patient was intubated at 3:10pm. After intubation patient became bradycardic and was pulseless. Code isidro was called at 3:13pm. CPR was initiated. During the code, patient received epinephrine x 2, bicarb x 1, shock was administered 4 times with ROSC. Right subclavian central line was placed at the bedside. Positioning was confirmed by CXR. Patient was started on Levophed and given a fluid challenge for hypotension. Family (Daughter - Anjali Langford, Son - Boris Langford) was notified of patients condition. They stated that they will be coming into the hospital. Patient later became pulseless, another code blue was called at 16:15. CPR initiated. Patient received epinephrine x 5 and bicarb x 1 without ROSC. Time of 16:26. Family and Attending physician notified. Original Note: <Damari Sanchez - Last Filed: 10/19/17 09:41> CCU Subjective - Physician Review Subjective (Free Text): 10/19/17 09:32 Patient seen and examined at bedside. Per nursing no acute events overnight. Patient on bipap, morning ABG reviewed and settings changed. In light of drop in hgb will transfuse 1 unit PRBCs at this time. CCU Objective - Vital Signs / Intake & Output Vital Signs (Last 4 hours): Vital Signs Pulse Resp BP Pulse Ox 10/19/17 08:00 129 H 22 98 10/19/17 07:41 127 H 10/19/17 07:00 130 H 22 96 10/19/17 06:17 152 H 32 H 129/70 90 L 10/19/17 06:05 129 H 10/19/17 06:00 142 H 25 H 92 L Intake and Output (Last 8hrs): Intake & Output 10/18/17 10/19/17 10/19/17 22:59 06:59 14:59 Intake Total 225 150 50 Output Total 175 105 10 Balance 50 45 40 Weight 55.338 kg Intake: Intake, IV Amount 100 150 50 Left Antecubital 100 150 50 Oral 125 0 0 Output: Urine 175 105 10 Urethral (Rico) 175 105 10 Emesis 0 Other: # Bowel Movements 0 - Physical Exam Head: Positive for: Atraumatic, Normocephalic Pupils: Positive for: PERRL Extroacular Muscles: Positive for: EOMI Conjunctiva: Positive for: Normal Mouth: Positive for: Moist Mucous Membranes Respiratory/Chest: Positive for: Rhonchi Cardiovascular: Positive for: Normal S1, S2, Tachycardic Abdomen: Positive for: Normal Bowel Sounds. Negative for: Tenderness Upper Extremity: Positive for: Normal Inspection Lower Extremity: Positive for: Edema Skin: Positive for: Warm, Dry, Normal Color Psychiatric: Positive for: Alert, Oriented x 3 - Medications Active Medications: Active Medications Generic Name Dose Route Start Last Admin Trade Name Freq PRN Reason Stop Dose Admin Acetaminophen 650 mg 10/16/17 12:00 10/18/17 21:31 Tylenol 325mg Tab PO 650 mg Q6 PRN Administration PAIN + FEVER Budesonide 0.5 mg 10/18/17 20:00 10/18/17 19:31 Pulmicort Respules IH 0.5 mg RQ12 JENNIFER Administration Enoxaparin Sodium 60 mg 10/17/17 11:15 10/18/17 21:36 Lovenox SC 60 mg Q12 JENNIFER Administration Folic Acid 1 mg 10/16/17 10:00 10/18/17 10:38 Folic Acid PO 1 mg DAILY JENNIFER Administration Furosemide 20 mg 10/18/17 13:33 Lasix IVP DAILY JENNIFER Meropenem 500 mg/ Sodium 100 mls @ 100 mls/hr 10/16/17 06:00 10/19/17 05:45 Chloride IVPB 100 mls/hr Q8 JENNIFER Administration Protocol Clindamycin Phosphate 300 mg/ 52 mls @ 100 mls/hr 10/18/17 23:00 10/19/17 07: 00 Sodium Chloride IVPB 100 mls/hr Q8H JENNIFER Administration Protocol Vancomycin/Sodium Chloride 1 gm in 200 mls @ 133.333 mls/hr 10/19/17 11:00 Vancomycin 1 Gm/Ns 200 Ml IVPB 10/24/17 11:01 Q12H JENNIFER Protocol Ipratropium [place] 0.5 mg 10/18/17 10:00 10/19/17 07:38 Atrovent IH 0.5 mg RQ6 JENNIFER Administration Lactobacillus Acidophilus 1 cap 10/19/17 10:00 Bacid Acidophilus PO BID JENNIFER Lorazepam 0.5 mg 10/16/17 17:20 10/18/17 02:07 Ativan IVP 0.5 mg Q8H PRN Administration Anxiety Losartan Potassium 25 mg 10/18/17 10:00 10/18/17 10:38 Cozaar PO 25 mg DAILY JENNIFER Administration Montelukast Sodium 10 mg 10/17/17 22:00 10/18/17 21:33 Singulair PO 10 mg HS JENNIFER Administration Multivitamins 1 tab 10/16/17 10:00 10/18/17 10:38 Hexavitamin PO 1 tab DAILY JENNIFER Administration Pantoprazole Sodium 40 mg 10/16/17 10:00 10/18/17 10:38 Protonix Ec Tab PO 40 mg DAILY JENNIFER Administration Rosuvastatin Calcium 10 mg 10/16/17 22:00 10/18/17 21:32 Crestor PO 10 mg HS JENNIFER Administration - Patient Studies Lab Studies: Microbiology Studies 10/15/17 21:55 Blood Culture - Preliminary Blood NO GROWTH AFTER 3 DAYS 10/15/17 21:30 Blood Culture - Preliminary Blood NO GROWTH AFTER 3 DAYS Lab Studies 10/19/17 10/19/17 10/19/17 Range/Units 08:10 06:49 06:49 WBC 31.1 H (4.8-10.8) K/uL RBC 3.17 L (3.80-5.20) Mil/uL Hgb 7.9 L (11.0-16.0) g/dL Hct 25.1 L (34.0-47.0) % MCV 79.2 L (81.0-99.0) fL MCH 25.0 L (27.0-31.0) pg MCHC 31.5 L (33.0-37.0) g/dL RDW 22.8 H (11.5-14.5) % Plt Count 634 H (130-400) K/uL MPV 7.7 (7.2-11.7) fL Neut % (Auto) 91.8 H (50.0-75.0) % Lymph % (Auto) 3.3 L (20.0-40.0) % Blanco % (Auto) 4.9 (0.0-10.0) % Eos % (Auto) 0.0 (0.0-4.0) % Baso % (Auto) 0.0 (0.0-2.0) % Neut # (Auto) 28.5 H (1.8-7.0) K/uL Lymph # (Auto) 1.0 (1.0-4.3) K/uL [place] # (Auto) 1.5 H (0.0-0.8) K/uL Eos # (Auto) 0.0 (0.0-0.7) K/uL Baso # (Auto) 0.0 (0.0-0.2) K/uL Neutrophils % (Manual) 92 H (50-75) % Lymphocytes % (Manual) 3 L (20-40) % Monocytes % (Manual) 4 (0-10) % Myelocytes % 1 H (0-0) % Platelet Estimate Increased H (NORMAL) Large Platelets Present Hypochromasia (manual) Moderate Poikilocytosis (manual Slight Anisocytosis (manual) Slight Microcytosis (manual) Slight Macrocytosis (manual) Slight Target Cells Slight Ovalocytes Slight [place] Cells Slight Puncture Site Lb pCO2 78 H* (35-45) mm/Hg pO2 379 H (80-100) mm/Hg HCO3 39.4 H (21-28) mmol/L ABG pH 7.39 (7.35-7.45) ABG Total CO2 49.6 H (22-28) mmol/L ABG O2 Saturation 99.9 H (95-98) % ABG Base Excess 18.6 H (-2.0-3.0) mmol/L ABG Hemoglobin 11.6 L (11.7-17.4) g/dL ABG Carboxyhemoglobin 1.6 H (0.5-1.5) % POC ABG HHb (Measured) 0.1 (0.0-5.0) % ABG Methemoglobin 1.2 (0.0-3.0) % Bill Test Na A-a O2 Difference 237.0 mm/Hg Respiratory Index 0.6 Hgb O2 Saturation 97.1 (95.0-98.0) % FiO2 100.0 % Inspiratory BiPAP 14 Expiratory BiPAP 6 Crit Value Called To Dr plasencia Crit Value Called By Shen [facility] [place] Crit Value Read Back Y Blood Gas Notified Time 815 Sodium 143 (132-148) mmol/L Potassium 3.5 L (3.6-5.2) mmol/L Chloride 91 L (98-107) mmol/L Carbon Dioxide 43 H* (22-30) mmol/L Anion Gap 13 (10-20) BUN 22 H (7-17) mg/dL Creatinine 0.5 L (0.7-1.2) mg/dL Est GFR ( Amer) > 60 Est GFR (Non-Af Amer) > 60 Random Glucose 119 H (65-105) mg/dL Calcium 8.5 L (8.6-10.4) mg/dl Phosphorus 4.8 H (2.5-4.5) mg/dL Magnesium 1.7 (1.6-2.3) mg/dL Total Bilirubin 0.5 (0.2-1.3) mg/dL AST 23 (14-36) U/L ALT 23 (9-52) U/L Alkaline Phosphatase 173 H (38-126) U/L Total Protein 6.3 (6.3-8.3) g/dL Albumin 2.5 L (3.5-5.0) g/dL Globulin 3.8 (2.2-3.9) gm/dL Albumin/Globulin Ratio 0.7 L (1.0-2.1) Stool Occult Blood (NEGATIVE) 10/18/17 Range/Units 15:43 WBC (4.8-10.8) K/uL RBC (3.80-5.20) Mil/uL Hgb (11.0-16.0) g/dL Hct (34.0-47.0) % MCV (81.0-99.0) fL MCH (27.0-31.0) pg MCHC (33.0-37.0) g/dL RDW (11.5-14.5) % Plt Count (130-400) K/uL MPV (7.2-11.7) fL Neut % (Auto) (50.0-75.0) % Lymph % (Auto) (20.0-40.0) % [place] % (Auto) (0.0-10.0) % Eos % (Auto) (0.0-4.0) % Baso % (Auto) (0.0-2.0) % Neut # (Auto) (1.8-7.0) K/uL Lymph # (Auto) (1.0-4.3) K/uL [place] # (Auto) (0.0-0.8) K/uL Eos # (Auto) (0.0-0.7) K/uL Baso # (Auto) (0.0-0.2) K/uL Neutrophils % (Manual) (50-75) % Lymphocytes % (Manual) (20-40) % Monocytes % (Manual) (0-10) % Myelocytes % (0-0) % Platelet Estimate (NORMAL) Large Platelets Hypochromasia (manual) Poikilocytosis (manual Anisocytosis (manual) Microcytosis (manual) Macrocytosis (manual) Target Cells Ovalocytes Roseanne Cells Puncture Site pCO2 (35-45) mm/Hg pO2 (80-100) mm/Hg HCO3 (21-28) mmol/L ABG pH (7.35-7.45) ABG Total CO2 (22-28) mmol/L ABG O2 Saturation (95-98) % ABG Base Excess (-2.0-3.0) mmol/L ABG Hemoglobin (11.7-17.4) g/dL ABG Carboxyhemoglobin (0.5-1.5) % POC ABG HHb (Measured) (0.0-5.0) % ABG Methemoglobin (0.0-3.0) % Bill Test A-a O2 Difference mm/Hg Respiratory Index Hgb O2 Saturation (95.0-98.0) % FiO2 % Inspiratory BiPAP Expiratory BiPAP Crit Value Called To Crit Value Called By Crit Value Read Back Blood Gas Notified Time Sodium (132-148) mmol/L Potassium (3.6-5.2) mmol/L Chloride (98-107) mmol/L Carbon Dioxide (22-30) mmol/L Anion Gap (10-20) BUN (7-17) mg/dL Creatinine (0.7-1.2) mg/dL Est GFR ( Amer) Est GFR (Non-Af Amer) Random Glucose (65-105) mg/dL Calcium (8.6-10.4) mg/dl Phosphorus (2.5-4.5) mg/dL Magnesium (1.6-2.3) mg/dL Total Bilirubin (0.2-1.3) mg/dL AST (14-36) U/L ALT (9-52) U/L Alkaline Phosphatase (38-126) U/L Total Protein (6.3-8.3) g/dL Albumin (3.5-5.0) g/dL Globulin (2.2-3.9) gm/dL Albumin/Globulin Ratio (1.0-2.1) Stool Occult Blood Positive H (NEGATIVE) Laboratory Results - last 24 hr 10/18/17 10/19/17 10/19/17 15:43 06:49 06:49 WBC 31.1 H RBC 3.17 L Hgb 7.9 L Hct 25.1 L MCV 79.2 L MCH 25.0 L MCHC 31.5 L RDW 22.8 H Plt Count 634 H MPV 7.7 Neut % (Auto) 91.8 H Lymph % (Auto) 3.3 L [place] % (Auto) 4.9 Eos % (Auto) 0.0 Baso % (Auto) 0.0 Neut # (Auto) 28.5 H Lymph # (Auto) 1.0 [place] # (Auto) 1.5 H Eos # (Auto) 0.0 Baso # (Auto) 0.0 Neutrophils % (Manual) 92 H Lymphocytes % (Manual) 3 L Monocytes % (Manual) 4 Myelocytes % 1 H Platelet Estimate Increased H Large Platelets Present Hypochromasia (manual) Moderate Poikilocytosis (manual Slight Anisocytosis (manual) Slight Microcytosis (manual) Slight Macrocytosis (manual) Slight Target Cells Slight Ovalocytes Slight [place] Cells Slight Puncture Site pCO2 pO2 HCO3 ABG pH ABG Total CO2 ABG O2 Saturation ABG Base Excess ABG Hemoglobin ABG Carboxyhemoglobin POC ABG HHb (Measured) ABG Methemoglobin Bill Test A-a O2 Difference Respiratory Index Hgb O2 Saturation FiO2 Inspiratory BiPAP Expiratory BiPAP Crit Value Called To Crit Value Called By Crit Value Read Back Blood Gas Notified Time Sodium 143 Potassium 3.5 L Chloride 91 L Carbon Dioxide 43 H* Anion Gap 13 BUN 22 H Creatinine 0.5 L Est GFR ( Amer) > 60 Est GFR (Non-Af Amer) > 60 Random Glucose 119 H Calcium 8.5 L Phosphorus 4.8 H Magnesium 1.7 Total Bilirubin 0.5 AST 23 ALT 23 Alkaline Phosphatase 173 H Total Protein 6.3 Albumin 2.5 L Globulin 3.8 Albumin/Globulin Ratio 0.7 L Stool Occult Blood Positive H 10/19/17 08:10 WBC RBC Hgb Hct MCV MCH MCHC RDW Plt Count MPV Neut % (Auto) Lymph % (Auto) [place] % (Auto) Eos % (Auto) Baso % (Auto) Neut # (Auto) Lymph # (Auto) [place] # (Auto) Eos # (Auto) Baso # (Auto) Neutrophils % (Manual) Lymphocytes % (Manual) Monocytes % (Manual) Myelocytes % Platelet Estimate Large Platelets Hypochromasia (manual) Poikilocytosis (manual Anisocytosis (manual) Microcytosis (manual) Macrocytosis (manual) Target Cells Ovalocytes Roseanne Cells Puncture Site Lb pCO2 78 H* pO2 379 H HCO3 39.4 H ABG pH 7.39 ABG Total CO2 49.6 H ABG O2 Saturation 99.9 H ABG Base Excess 18.6 H ABG Hemoglobin 11.6 L ABG Carboxyhemoglobin 1.6 H POC ABG HHb (Measured) 0.1 ABG Methemoglobin 1.2 Bill Test Na A-a O2 Difference 237.0 Respiratory Index 0.6 Hgb O2 Saturation 97.1 FiO2 100.0 Inspiratory BiPAP 14 Expiratory BiPAP 6 Crit Value Called To Dr plasencia Crit Value Called By Shen [facility] [place] Crit Value Read Back Y Blood Gas Notified Time 815 Sodium Potassium Chloride Carbon Dioxide Anion Gap BUN Creatinine Est GFR ( Amer) Est GFR (Non-Af Amer) Random Glucose Calcium Phosphorus Magnesium Total Bilirubin AST ALT Alkaline Phosphatase Total Protein Albumin Globulin Albumin/Globulin Ratio Stool Occult Blood Critical Care Progress Note - Nutrition Nutrition: Nutrition Category Date Time Status Consistent Carbohydrate [DIET] Diets 10/16/17 Breakfast Active Assessment/Plan - Assessment and Plan (Free Text) Assessment: Patient is a 72 year old female with past medical history of COPD, on home o2, 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 CT chest showed pulmonary emboli in the right pulmonary vein trunk and left lower lung, also suggestion of pulmonary infarct or mass in the lungs. Patient admitted to the ICU for closer monitoring -Stable, afebrile -Patient was started on heparin drip -S/P IVC filter by MARIA A Garza on Lovenox 60mg SC Q12H (on hold at this time) -Hgb 7.9 today, stool occult positive -Will repeat coags and transfuse 1 unit of PRBCs -Patient will need central line, consent to be obtained -Leukocytosis worsening 31.1 today, procalcitonin 0.60 -Antibiotics: Merrem 500mg Q8H IV, Clindamycin 300mg Q8H -CXR 10/19: unchanged -CXR 10/18 showing multifocal pneumonia in the right mid lung and left lower lobe -BNP 6810, Echo showed EF 65-70%, right ventricular pressure overload -Continue Lasix 20mg IVP daily -Continue Cozaar 25mg PO daily, Crestor 10mg PO HS -Continue Pulmicort, Ipratroprium, Singular -Venous dopplers show bilateral DVTs -Continue Protonix 40mg PO daily -Will continue to monitor -Discussed with Dr Plasencia <Rey Plasencia - Last Filed: 10/19/17 17:38> CCU Objective - Vital Signs / Intake & Output Vital Signs (Last 4 hours): Vital Signs Temp Pulse Resp BP Pulse Ox 10/19/17 16:00 97.6 F 46 L 20 60/35 L 10/19/17 15:01 139 H 35 H 66/46 L 10/19/17 15:00 97.6 F 140 H 45 H 81/51 L 10/19/17 14:52 141 H 42 H 81/51 L 79 L 10/19/17 14:45 144 H 43 H 79 L 10/19/17 14:37 146 H 44 H 81/60 L 80 L 10/19/17 14:30 97.7 F 145 H 38 H 81/60 L 80 L 10/19/17 14:22 146 H 29 H 81 L 10/19/17 14:15 147 H 37 H 80 L 10/19/17 14:08 146 H 38 H 93/55 L 82 L 10/19/17 14:04 147 H 30 H 93/61 L 81 L 10/19/17 14:00 97.8 F 147 H 32 H 93/64 L 81 L 10/19/17 13:56 147 H 10/19/17 13:52 148 H 38 H 93/64 L 83 L 10/19/17 13:45 149 H 31 H 86 L 10/19/17 13:35 148 H 28 H 99/60 L 84 L Intake and Output (Last 8hrs): Intake & Output 10/19/17 10/19/17 10/19/17 06:59 14:59 22:59 Intake Total 150 495 200 Output Total 105 350 Balance 45 145 200 Weight 122 lb Intake: Intake, IV Amount 150 250 Left Antecubital 150 250 Oral 0 120 Blood Product 125 200 Red Blood Cells Cpd As1 125 200 Lr Unit [id number] Output: Urine 105 350 Urethral (Rico) 105 350 Stool 0 Emesis 0 - Medications Active Medications: Active Medications Generic Name Dose Route Start Last Admin Trade Name Freq PRN Reason Stop Dose Admin Acetaminophen 650 mg 10/16/17 12:00 10/18/17 21:31 Tylenol 325mg Tab PO 650 mg Q6 PRN Administration PAIN + FEVER Enoxaparin Sodium 60 mg 10/17/17 11:15 10/18/17 21:36 Lovenox SC 60 mg Q12 JENNIFER Administration Furosemide 20 mg 10/18/17 13:33 10/19/17 09:38 Lasix IVP 20 mg DAILY JENNIFER Administration Meropenem 500 mg/ Sodium 100 mls @ 100 mls/hr 10/16/17 06:00 10/19/17 05:45 Chloride IVPB 100 mls/hr Q8 JENNIFER Administration Protocol Clindamycin Phosphate 300 mg/ 52 mls @ 100 mls/hr 10/18/17 23:00 10/19/17 07: 00 Sodium Chloride IVPB 100 mls/hr Q8H JENNIFER Administration Protocol Vancomycin/Sodium Chloride 1 gm in 200 mls @ 133.333 mls/hr 10/19/17 11:00 11:00 Vancomycin 1 Gm/Ns 200 Ml IVPB 10/24/17 11:01 133.333 mls/hr Q12H JENNIFER Administration Protocol Norepinephrine Bitartrate 4 mg 254 mls @ 15.24 mls/hr 10/19/17 15:07 / Sodium Chloride IV .[id number] PRN TITRATE PER MD ORDER Protocol 4 MCG/MIN Ipratropium [place] 0.5 mg 10/18/17 10:00 10/19/17 14:00 Atrovent IH 0.5 mg RQ6 JENNIFER Administration Lactobacillus Acidophilus 1 cap 10/19/17 10:00 10/19/17 09:41 Bacid Acidophilus PO 1 cap BID JENNIFER Administration Lorazepam 0.5 mg 10/16/17 17:20 10/18/17 02:07 Ativan IVP 0.5 mg Q8H PRN Administration Anxiety Losartan Potassium 25 mg 10/18/17 10:00 10/19/17 09:38 Cozaar PO 25 mg DAILY JENNIFER Administration Montelukast Sodium 10 mg 10/17/17 22:00 10/18/17 21:33 Singulair PO 10 mg HS JENNIFER Administration Multivitamins 1 tab 10/16/17 10:00 10/19/17 09:37 Hexavitamin PO 1 tab DAILY JENNIFER Administration Pantoprazole Sodium 40 mg 10/20/17 10:00 Protonix Inj IVP DAILY JENNIFER Rosuvastatin Calcium 10 mg 10/16/17 22:00 10/18/17 21:32 Crestor PO 10 mg HS JENNIFER Administration - Patient Studies Lab Studies: Microbiology Studies 10/15/17 21:55 Blood Culture - Preliminary Blood NO GROWTH AFTER 3 DAYS 10/15/17 21:30 Blood Culture - Preliminary Blood NO GROWTH AFTER 3 DAYS Lab Studies 10/19/17 10/19/17 10/19/17 Range/Units 16:12 16:12 16:06 WBC 19.8 H (4.8-10.8) K/uL RBC 2.26 L (3.80-5.20) Mil/uL Hgb 5.9 L* D (11.0-16.0) g/dL Hct 18.5 L (34.0-47.0) % MCV 82.0 D (81.0-99.0) fL MCH 26.2 L (27.0-31.0) pg MCHC 31.9 L (33.0-37.0) g/dL RDW 20.9 H (11.5-14.5) % Plt Count 452 H D (130-400) K/uL MPV 7.6 (7.2-11.7) fL Neut % (Auto) 85.5 H (50.0-75.0) % Lymph % (Auto) 10.3 L (20.0-40.0) % [place] % (Auto) 3.7 (0.0-10.0) % Eos % (Auto) 0.1 (0.0-4.0) % Baso % (Auto) 0.4 (0.0-2.0) % Neut # (Auto) 17.0 H (1.8-7.0) K/uL Lymph # (Auto) 2.0 (1.0-4.3) K/uL [place] # (Auto) 0.7 (0.0-0.8) K/uL Eos # (Auto) 0.0 (0.0-0.7) K/uL Baso # (Auto) 0.1 (0.0-0.2) K/uL Neutrophils % (Manual) (50-75) % Lymphocytes % (Manual) (20-40) % Monocytes % (Manual) (0-10) % Myelocytes % (0-0) % Platelet Estimate (NORMAL) Large Platelets Hypochromasia (manual) Poikilocytosis (manual Anisocytosis (manual) Microcytosis (manual) Macrocytosis (manual) Target Cells Ovalocytes [place] Cells PT 27.1 H D (9.7-12.2) SECONDS INR 2.3 D APTT 44 H (21-34) SECONDS Puncture Site pCO2 (35-45) mm/Hg pO2 (80-100) mm/Hg HCO3 (21-28) mmol/L ABG pH (7.35-7.45) ABG Total CO2 (22-28) mmol/L ABG O2 Saturation (95-98) % ABG Base Excess (-2.0-3.0) mmol/L ABG Hemoglobin (11.7-17.4) g/dL ABG Carboxyhemoglobin (0.5-1.5) % POC ABG HHb (Measured) (0.0-5.0) % ABG Methemoglobin (0.0-3.0) % Bill Test ABG Potassium (3.6-5.2) mmol/L VBG pH (7.32-7.43) VBG pCO2 (40-60) mmHg VBG O2 Sat (Calc) (40-65) % VBG Potassium (3.6-5.2) mmol/L A-a O2 Difference mm/Hg Respiratory Index Hgb O2 Saturation (95.0-98.0) % Glucose (65-105) mg/dl Lactate (0.7-2.1) mmol/L FiO2 % Inspiratory BiPAP Expiratory BiPAP Crit Value Called To Crit Value Called By Crit Value Read Back Blood Gas Notified Time Sodium (132-148) mmol/L Potassium (3.6-5.2) mmol/L Chloride (98-107) mmol/L Carbon Dioxide (22-30) mmol/L Anion Gap (10-20) BUN (7-17) mg/dL Creatinine (0.7-1.2) mg/dL Est GFR ( Amer) Est GFR (Non-Af Amer) POC Glucose (mg/dL) 153 H (65-110) mg/dL Random Glucose (65-105) mg/dL Calcium (8.6-10.4) mg/dl Phosphorus (2.5-4.5) mg/dL Magnesium (1.6-2.3) mg/dL Total Bilirubin (0.2-1.3) mg/dL AST (14-36) U/L ALT (9-52) U/L Alkaline Phosphatase (38-126) U/L Total Protein (6.3-8.3) g/dL Albumin (3.5-5.0) g/dL Globulin (2.2-3.9) gm/dL Albumin/Globulin Ratio (1.0-2.1) Arterial Blood Potassium (3.6-5.2) mmol/L Venous Blood Potassium (3.6-5.2) mmol/L Blood Type Antibody Screen 10/19/17 10/19/17 10/19/17 Range/Units 16:05 11:05 10:10 WBC (4.8-10.8) K/uL RBC (3.80-5.20) Mil/uL Hgb (11.0-16.0) g/dL Hct (34.0-47.0) % MCV (81.0-99.0) fL MCH (27.0-31.0) pg MCHC (33.0-37.0) g/dL RDW (11.5-14.5) % Plt Count (130-400) K/uL MPV (7.2-11.7) fL Neut % (Auto) (50.0-75.0) % Lymph % (Auto) (20.0-40.0) % [place] % (Auto) (0.0-10.0) % Eos % (Auto) (0.0-4.0) % Baso % (Auto) (0.0-2.0) % Neut # (Auto) (1.8-7.0) K/uL Lymph # (Auto) (1.0-4.3) K/uL [place] # (Auto) (0.0-0.8) K/uL Eos # (Auto) (0.0-0.7) K/uL Baso # (Auto) (0.0-0.2) K/uL Neutrophils % (Manual) (50-75) % Lymphocytes % (Manual) (20-40) % Monocytes % (Manual) (0-10) % Myelocytes % (0-0) % Platelet Estimate (NORMAL) Large Platelets Hypochromasia (manual) Poikilocytosis (manual Anisocytosis (manual) Microcytosis (manual) Macrocytosis (manual) Target Cells Ovalocytes [place] Cells PT (9.7-12.2) SECONDS INR APTT (21-34) SECONDS Puncture Site Lb pCO2 66 H (35-45) mm/Hg pO2 24 L 61 L (80-100) mm/Hg HCO3 39.0 H (21-28) mmol/L ABG pH 7.45 (7.35-7.45) ABG Total CO2 47.9 H (22-28) mmol/L ABG O2 Saturation 93.1 L (95-98) % ABG Base Excess 18.2 H (-2.0-3.0) mmol/L ABG Hemoglobin (11.7-17.4) g/dL ABG Carboxyhemoglobin (0.5-1.5) % POC ABG HHb (Measured) (0.0-5.0) % ABG Methemoglobin (0.0-3.0) % Bill Test Na ABG Potassium 4.5 (3.6-5.2) mmol/L VBG pH 7.38 (7.32-7.43) VBG pCO2 > 150 H* (40-60) mmHg VBG O2 Sat (Calc) 32.5 L (40-65) % VBG Potassium 5.3 H (3.6-5.2) mmol/L A-a O2 Difference 213.0 mm/Hg Respiratory Index 3.5 Hgb O2 Saturation (95.0-98.0) % Glucose 141 H 192 H (65-105) mg/dl Lactate 11.1 H* 2.4 H (0.7-2.1) mmol/L FiO2 21.0 50.0 % Inspiratory BiPAP 16 Expiratory BiPAP 8 Crit Value Called To Dr luis angel plasencia Crit Value Called By [facility] elosaran Shen ele aircraft assembler Crit Value Read Back Y Y Blood Gas Notified Time 1610 1110 Sodium 197.0 H* 145.0 (132-148) mmol/L Potassium (3.6-5.2) mmol/L Chloride 124.0 H 104.0 (98-107) mmol/L Carbon Dioxide (22-30) mmol/L Anion Gap (10-20) BUN (7-17) mg/dL Creatinine (0.7-1.2) mg/dL Est GFR ( Amer) Est GFR (Non-Af Amer) POC Glucose (mg/dL) (65-110) mg/dL Random Glucose (65-105) mg/dL Calcium (8.6-10.4) mg/dl Phosphorus (2.5-4.5) mg/dL Magnesium (1.6-2.3) mg/dL Total Bilirubin (0.2-1.3) mg/dL AST (14-36) U/L ALT (9-52) U/L Alkaline Phosphatase (38-126) U/L Total Protein (6.3-8.3) g/dL Albumin (3.5-5.0) g/dL Globulin (2.2-3.9) gm/dL Albumin/Globulin Ratio (1.0-2.1) Arterial Blood Potassium 4.5 (3.6-5.2) mmol/L Venous Blood Potassium 5.3 H (3.6-5.2) mmol/L Blood Type O POSITIVE Antibody Screen Negative 10/19/17 10/19/17 10/19/17 Range/Units 10:10 08:10 06:49 WBC (4.8-10.8) K/uL RBC (3.80-5.20) Mil/uL Hgb (11.0-16.0) g/dL Hct (34.0-47.0) % MCV (81.0-99.0) fL MCH (27.0-31.0) pg MCHC (33.0-37.0) g/dL RDW (11.5-14.5) % Plt Count (130-400) K/uL MPV (7.2-11.7) fL Neut % (Auto) (50.0-75.0) % Lymph % (Auto) (20.0-40.0) % Blanco % (Auto) (0.0-10.0) % Eos % (Auto) (0.0-4.0) % Baso % (Auto) (0.0-2.0) % Neut # (Auto) (1.8-7.0) K/uL Lymph # (Auto) (1.0-4.3) K/uL Blanco # (Auto) (0.0-0.8) K/uL Eos # (Auto) (0.0-0.7) K/uL Baso # (Auto) (0.0-0.2) K/uL Neutrophils % (Manual) (50-75) % Lymphocytes % (Manual) (20-40) % Monocytes % (Manual) (0-10) % Myelocytes % (0-0) % Platelet Estimate (NORMAL) Large Platelets Hypochromasia (manual) Poikilocytosis (manual Anisocytosis (manual) Microcytosis (manual) Macrocytosis (manual) Target Cells Ovalocytes Roseanne Cells PT 15.0 H (9.7-12.2) SECONDS INR 1.3 APTT 43 H (21-34) SECONDS Puncture Site Lb pCO2 78 H* (35-45) mm/Hg pO2 379 H (80-100) mm/Hg HCO3 39.4 H (21-28) mmol/L ABG pH 7.39 (7.35-7.45) ABG Total CO2 49.6 H (22-28) mmol/L ABG O2 Saturation 99.9 H (95-98) % ABG Base Excess 18.6 H (-2.0-3.0) mmol/L ABG Hemoglobin 11.6 L (11.7-17.4) g/dL ABG Carboxyhemoglobin 1.6 H (0.5-1.5) % POC ABG HHb (Measured) 0.1 (0.0-5.0) % ABG Methemoglobin 1.2 (0.0-3.0) % Bill Test Na ABG Potassium (3.6-5.2) mmol/L VBG pH (7.32-7.43) VBG pCO2 (40-60) mmHg VBG O2 Sat (Calc) (40-65) % VBG Potassium (3.6-5.2) mmol/L A-a O2 Difference 237.0 mm/Hg Respiratory Index 0.6 Hgb O2 Saturation 97.1 (95.0-98.0) % Glucose (65-105) mg/dl Lactate (0.7-2.1) mmol/L FiO2 100.0 % Inspiratory BiPAP 14 Expiratory BiPAP 6 Crit Value Called To Dr plasencia Crit Value Called By Shen [facility] [place] Crit Value Read Back Y Blood Gas Notified Time 815 Sodium 143 (132-148) mmol/L Potassium 3.5 L (3.6-5.2) mmol/L Chloride 91 L (98-107) mmol/L Carbon Dioxide 43 H* (22-30) mmol/L Anion Gap 13 (10-20) BUN 22 H (7-17) mg/dL Creatinine 0.5 L (0.7-1.2) mg/dL Est GFR ( Amer) > 60 Est GFR (Non-Af Amer) > 60 POC Glucose (mg/dL) (65-110) mg/dL Random Glucose 119 H (65-105) mg/dL Calcium 8.5 L (8.6-10.4) mg/dl Phosphorus 4.8 H (2.5-4.5) mg/dL Magnesium 1.7 (1.6-2.3) mg/dL Total Bilirubin 0.5 (0.2-1.3) mg/dL AST 23 (14-36) U/L ALT 23 (9-52) U/L Alkaline Phosphatase 173 H (38-126) U/L Total Protein 6.3 (6.3-8.3) g/dL Albumin 2.5 L (3.5-5.0) g/dL Globulin 3.8 (2.2-3.9) gm/dL Albumin/Globulin Ratio 0.7 L (1.0-2.1) Arterial Blood Potassium (3.6-5.2) mmol/L Venous Blood Potassium (3.6-5.2) mmol/L Blood Type Antibody Screen 10/19/17 Range/Units 06:49 WBC 31.1 H (4.8-10.8) K/uL RBC 3.17 L (3.80-5.20) Mil/uL Hgb 7.9 L (11.0-16.0) g/dL Hct 25.1 L (34.0-47.0) % MCV 79.2 L (81.0-99.0) fL MCH 25.0 L (27.0-31.0) pg MCHC 31.5 L (33.0-37.0) g/dL RDW 22.8 H (11.5-14.5) % Plt Count 634 H (130-400) K/uL MPV 7.7 (7.2-11.7) fL Neut % (Auto) 91.8 H (50.0-75.0) % Lymph % (Auto) 3.3 L (20.0-40.0) % [place] % (Auto) 4.9 (0.0-10.0) % Eos % (Auto) 0.0 (0.0-4.0) % Baso % (Auto) 0.0 (0.0-2.0) % Neut # (Auto) 28.5 H (1.8-7.0) K/uL Lymph # (Auto) 1.0 (1.0-4.3) K/uL [place] # (Auto) 1.5 H (0.0-0.8) K/uL Eos # (Auto) 0.0 (0.0-0.7) K/uL Baso # (Auto) 0.0 (0.0-0.2) K/uL Neutrophils % (Manual) 92 H (50-75) % Lymphocytes % (Manual) 3 L (20-40) % Monocytes % (Manual) 4 (0-10) % Myelocytes % 1 H (0-0) % Platelet Estimate Increased H (NORMAL) Large Platelets Present Hypochromasia (manual) Moderate Poikilocytosis (manual Slight Anisocytosis (manual) Slight Microcytosis (manual) Slight Macrocytosis (manual) Slight Target Cells Slight Ovalocytes Slight [place] Cells Slight PT (9.7-12.2) SECONDS INR APTT (21-34) SECONDS Puncture Site pCO2 (35-45) mm/Hg pO2 (80-100) mm/Hg HCO3 (21-28) mmol/L ABG pH (7.35-7.45) ABG Total CO2 (22-28) mmol/L ABG O2 Saturation (95-98) % ABG Base Excess (-2.0-3.0) mmol/L ABG Hemoglobin (11.7-17.4) g/dL ABG Carboxyhemoglobin (0.5-1.5) % POC ABG HHb (Measured) (0.0-5.0) % ABG Methemoglobin (0.0-3.0) % Bill Test ABG Potassium (3.6-5.2) mmol/L VBG pH (7.32-7.43) VBG pCO2 (40-60) mmHg VBG O2 Sat (Calc) (40-65) % VBG Potassium (3.6-5.2) mmol/L A-a O2 Difference mm/Hg Respiratory Index Hgb O2 Saturation (95.0-98.0) % Glucose (65-105) mg/dl Lactate (0.7-2.1) mmol/L FiO2 % Inspiratory BiPAP Expiratory BiPAP Crit Value Called To Crit Value Called By Crit Value Read Back Blood Gas Notified Time Sodium (132-148) mmol/L Potassium (3.6-5.2) mmol/L Chloride (98-107) mmol/L Carbon Dioxide (22-30) mmol/L Anion Gap (10-20) BUN (7-17) mg/dL Creatinine (0.7-1.2) mg/dL Est GFR ( Amer) Est GFR (Non-Af Amer) POC Glucose (mg/dL) (65-110) mg/dL Random Glucose (65-105) mg/dL Calcium (8.6-10.4) mg/dl Phosphorus (2.5-4.5) mg/dL Magnesium (1.6-2.3) mg/dL Total Bilirubin (0.2-1.3) mg/dL AST (14-36) U/L ALT (9-52) U/L Alkaline Phosphatase (38-126) U/L Total Protein (6.3-8.3) g/dL Albumin (3.5-5.0) g/dL Globulin (2.2-3.9) gm/dL Albumin/Globulin Ratio (1.0-2.1) Arterial Blood Potassium (3.6-5.2) mmol/L Venous Blood Potassium (3.6-5.2) mmol/L Blood Type Antibody Screen Laboratory Results - last 24 hr 10/19/17 10/19/17 10/19/17 06:49 06:49 08:10 WBC 31.1 H RBC 3.17 L Hgb 7.9 L Hct 25.1 L MCV 79.2 L MCH 25.0 L MCHC 31.5 L RDW 22.8 H Plt Count 634 H MPV 7.7 Neut % (Auto) 91.8 H Lymph % (Auto) 3.3 L [place] % (Auto) 4.9 Eos % (Auto) 0.0 Baso % (Auto) 0.0 Neut # (Auto) 28.5 H Lymph # (Auto) 1.0 [place] # (Auto) 1.5 H Eos # (Auto) 0.0 Baso # (Auto) 0.0 Neutrophils % (Manual) 92 H Lymphocytes % (Manual) 3 L Monocytes % (Manual) 4 Myelocytes % 1 H Platelet Estimate Increased H Large Platelets Present Hypochromasia (manual) Moderate Poikilocytosis (manual Slight Anisocytosis (manual) Slight Microcytosis (manual) Slight Macrocytosis (manual) Slight Target Cells Slight Ovalocytes Slight [place] Cells Slight PT INR APTT Puncture Site Lb pCO2 78 H* pO2 379 H HCO3 39.4 H ABG pH 7.39 ABG Total CO2 49.6 H ABG O2 Saturation 99.9 H ABG Base Excess 18.6 H ABG Hemoglobin 11.6 L ABG Carboxyhemoglobin 1.6 H POC ABG HHb (Measured) 0.1 ABG Methemoglobin 1.2 Bill Test Na ABG Potassium VBG pH VBG pCO2 VBG O2 Sat (Calc) VBG Potassium A-a O2 Difference 237.0 Respiratory Index 0.6 Hgb O2 Saturation 97.1 Glucose Lactate FiO2 100.0 Inspiratory BiPAP 14 Expiratory BiPAP 6 Crit Value Called To Dr plasencia Crit Value Called By Shen marlow [facility] Crit Value Read Back Y Blood Gas Notified Time 815 Sodium 143 Potassium 3.5 L Chloride 91 L Carbon Dioxide 43 H* Anion Gap 13 BUN 22 H Creatinine 0.5 L Est GFR ( Amer) > 60 Est GFR (Non-Af Amer) > 60 POC Glucose (mg/dL) Random Glucose 119 H Calcium 8.5 L Phosphorus 4.8 H Magnesium 1.7 Total Bilirubin 0.5 AST 23 ALT 23 Alkaline Phosphatase 173 H Total Protein 6.3 Albumin 2.5 L Globulin 3.8 Albumin/Globulin Ratio 0.7 L Arterial Blood Potassium Venous Blood Potassium Blood Type Antibody Screen 10/19/17 10/19/17 10/19/17 10:10 10:10 11:05 WBC RBC Hgb Hct MCV MCH MCHC RDW Plt Count MPV Neut % (Auto) Lymph % (Auto) [place] % (Auto) Eos % (Auto) Baso % (Auto) Neut # (Auto) Lymph # (Auto) [place] # (Auto) Eos # (Auto) Baso # (Auto) Neutrophils % (Manual) Lymphocytes % (Manual) Monocytes % (Manual) Myelocytes % Platelet Estimate Large Platelets Hypochromasia (manual) Poikilocytosis (manual Anisocytosis (manual) Microcytosis (manual) Macrocytosis (manual) Target Cells Ovalocytes [place] Cells PT 15.0 H INR 1.3 APTT 43 H Puncture Site Lb pCO2 66 H pO2 61 L HCO3 39.0 H ABG pH 7.45 ABG Total CO2 47.9 H ABG O2 Saturation 93.1 L ABG Base Excess 18.2 H ABG Hemoglobin ABG Carboxyhemoglobin POC ABG HHb (Measured) ABG Methemoglobin Bill Test Na ABG Potassium 4.5 VBG pH VBG pCO2 VBG O2 Sat (Calc) VBG Potassium A-a O2 Difference 213.0 Respiratory Index 3.5 Hgb O2 Saturation Glucose 192 H Lactate 2.4 H FiO2 50.0 Inspiratory BiPAP 16 Expiratory BiPAP 8 Crit Value Called To Dr plasencia Crit Value Called By Shen marlow aircraft assembler Crit Value Read Back Y Blood Gas Notified Time 1110 Sodium 145.0 Potassium Chloride 104.0 Carbon Dioxide Anion Gap BUN Creatinine Est GFR ( Amer) Est GFR (Non-Af Amer) POC Glucose (mg/dL) Random Glucose Calcium Phosphorus Magnesium Total Bilirubin AST ALT Alkaline Phosphatase Total Protein Albumin Globulin Albumin/Globulin Ratio Arterial Blood Potassium 4.5 Venous Blood Potassium Blood Type O POSITIVE Antibody Screen Negative 10/19/17 10/19/17 10/19/17 16:05 16:06 16:12 WBC 19.8 H RBC 2.26 L Hgb 5.9 L* D Hct 18.5 L MCV 82.0 D MCH 26.2 L MCHC 31.9 L RDW 20.9 H Plt Count 452 H D MPV 7.6 Neut % (Auto) 85.5 H Lymph % (Auto) 10.3 L [place] % (Auto) 3.7 Eos % (Auto) 0.1 Baso % (Auto) 0.4 Neut # (Auto) 17.0 H Lymph # (Auto) 2.0 [place] # (Auto) 0.7 Eos # (Auto) 0.0 Baso # (Auto) 0.1 Neutrophils % (Manual) Lymphocytes % (Manual) Monocytes % (Manual) Myelocytes % Platelet Estimate Large Platelets Hypochromasia (manual) Poikilocytosis (manual Anisocytosis (manual) Microcytosis (manual) Macrocytosis (manual) Target Cells Ovalocytes Roseanne Cells PT INR APTT Puncture Site pCO2 pO2 24 L HCO3 ABG pH ABG Total CO2 ABG O2 Saturation ABG Base Excess ABG Hemoglobin ABG Carboxyhemoglobin POC ABG HHb (Measured) ABG Methemoglobin Bill Test ABG Potassium VBG pH 7.38 VBG pCO2 > 150 H* VBG O2 Sat (Calc) 32.5 L VBG Potassium 5.3 H A-a O2 Difference Respiratory Index Hgb O2 Saturation Glucose 141 H Lactate 11.1 H* FiO2 21.0 Inspiratory BiPAP Expiratory BiPAP Crit Value Called To Dr plasencia Crit Value Called By [facility] Crit Value Read Back Y Blood Gas Notified Time 1610 Sodium 197.0 H* Potassium Chloride 124.0 H Carbon Dioxide Anion Gap BUN Creatinine Est GFR ( Amer) Est GFR (Non-Af Amer) POC Glucose (mg/dL) 153 H Random Glucose Calcium Phosphorus Magnesium Total Bilirubin AST ALT Alkaline Phosphatase Total Protein Albumin Globulin Albumin/Globulin Ratio Arterial Blood Potassium Venous Blood Potassium 5.3 H Blood Type Antibody Screen 10/19/17 16:12 WBC RBC Hgb Hct MCV MCH MCHC RDW Plt Count MPV Neut % (Auto) Lymph % (Auto) [place] % (Auto) Eos % (Auto) Baso % (Auto) Neut # (Auto) Lymph # (Auto) [place] # (Auto) Eos # (Auto) Baso # (Auto) Neutrophils % (Manual) Lymphocytes % (Manual) Monocytes % (Manual) Myelocytes % Platelet Estimate Large Platelets Hypochromasia (manual) Poikilocytosis (manual Anisocytosis (manual) Microcytosis (manual) Macrocytosis (manual) Target Cells Ovalocytes [place] Cells PT 27.1 H D INR 2.3 D APTT 44 H Puncture Site pCO2 pO2 HCO3 ABG pH ABG Total CO2 ABG O2 Saturation ABG Base Excess ABG Hemoglobin ABG Carboxyhemoglobin POC ABG HHb (Measured) ABG Methemoglobin Bill Test ABG Potassium VBG pH VBG pCO2 VBG O2 Sat (Calc) VBG Potassium A-a O2 Difference Respiratory Index Hgb O2 Saturation Glucose Lactate FiO2 Inspiratory BiPAP Expiratory BiPAP Crit Value Called To Crit Value Called By Crit Value Read Back Blood Gas Notified Time Sodium Potassium Chloride Carbon Dioxide Anion Gap BUN Creatinine Est GFR ( Amer) Est GFR (Non-Af Amer) POC Glucose (mg/dL) Random Glucose Calcium Phosphorus Magnesium Total Bilirubin AST ALT Alkaline Phosphatase Total Protein Albumin Globulin Albumin/Globulin Ratio Arterial Blood Potassium Venous Blood Potassium Blood Type Antibody Screen Critical Care Progress Note - Nutrition Nutrition: Nutrition Category Date Time Status Consistent Carbohydrate [DIET] Diets 10/16/17 Breakfast Active Attending/Attestation - Attestation I have personally seen and examined this patient.: Yes I have fully participated in the care of the patient.: Yes I have reviewed all pertinent clinical information: Yes Notes (Text): 10/19/17 17:33 patient seen and examined in the intensive care unit. Patient was placed on BiPAP for shortness of breath Mottling of the lower extremities noted, vascular consulted, but no aggressive intervention at this point as per surgery Patient intubated for increasing shortness of breath but later became bradycardic and went into ventricular fibrillation, status post resuscitation with return of circulation, triple-lumen catheter placed in the right subclavian vein and patient started on pressors and bicarbonate. Patient again lost pulse and was resuscitated without response. Patient was pronounced at 4:27 PM
[2017-10-19] MEDS: Multiple Vitamins Tab PO SCH (09:37)
[2017-10-19] MEDS: Pantoprazole 40 mg EC Tab PO SCH (09:37)
[2017-10-19] MEDS ORDERED: Lactobacillus Acidophilus 500 MU Cap PO SCH (10:00)
[2017-10-19 10:25] LABS: INR 1.3
[2017-10-19] MEDS ORDERED: Vancomycin 1 gm/NS 200 ml 1 GM/200 ML BAG IVPB SCH (11:00)
[2017-10-19 11:17] LABS: ARTERIAL BLOOD GAS O2 SAT 93.1 % (95-98); ARTERIAL BLOOD GAS PCO2 66 mm/Hg (35-45); ARTERIAL BLOOD GAS PH 7.45 (7.35-7.45); ARTERIAL BLOOD GAS PO2 61 mm/Hg (80-100); ARTERIAL BLOOD GAS TCO2 47.9 mmol/L (22-28)
--- NOTE | 2017-10-19 11:51 | CP.PCM.CON ---
History of Present Illness - History of Present Illness History of Present Illness: Vasc Sx: Dr Zepeda Pt is a 72F known to service due to her chronic arterial disease, currently admitted for acute CHF and hospital acquired pneumonia. Found to have large right sided PE and was being treated with LVX. Sudden drop in HgB and occult blood in stool prompted withdrawal of anticoagulation. This morning, per nursing , pt's lower extremities began to become mottled. Pt is only able to answer with head nodding as currently she is on BIPAP due to her respiratory distress. She denies any pain in her LE. She is able to move her legs. She has full sensation. PMH: COPD/PVD, CHF, CAD w/ stents, GI bleed PSH: IVC filter Review of Systems - Review of Systems Systems not reviewed;Unavailable: Acuity of Condition Past Patient History - Past Medical History & Family History Past Medical History?: Yes - Past Social History Smoking Status: Never Smoked - CARDIAC Hx Congestive Heart Failure: Yes - PULMONARY Hx Asthma: Yes Hx Chronic Obstructive Pulmonary Disease (COPD): Yes (emphysema) Hx Emphysema: Yes - NEUROLOGICAL Hx Neurological Disorder: No - HEENT Hx Cataracts: Yes - RENAL Hx Chronic Kidney Disease: No - ENDOCRINE/METABOLIC Hx Diabetes Mellitus Type 2: Yes - HEMATOLOGICAL/ONCOLOGICAL Hx Blood Disorders: No - INTEGUMENTARY Hx Dermatological Problems: No - MUSCULOSKELETAL/RHEUMATOLOGICAL Hx Falls: No - GASTROINTESTINAL Hx Gastrointestinal Disorders: No Hx Gastroesophageal Reflux: Yes - GENITOURINARY/GYNECOLOGICAL Hx Genitourinary Disorders: No - PSYCHIATRIC Hx Anxiety: Yes Hx Substance Use: No - SURGICAL HISTORY Hx Surgeries: Yes Hx Cataract Extraction: Yes Hx Mastectomy: Yes Other/Comment: R mastectomy 8 yrs ago L mastectomy 6 yrs ago - ANESTHESIA Hx Anesthesia: Yes Hx Anesthesia Reactions: No Meds Allergies/Adverse Reactions: Allergies Allergy/AdvReac Type Severity Reaction Status Date / Time adhesive tape Allergy Verified 08/30/17 21:45 latex Allergy Verified 08/30/17 21:45 - Medications Medications: Current Medications Acetaminophen (Tylenol 325mg Tab) 650 mg PO Q6 PRN PRN Reason: PAIN + FEVER Last Admin: 10/18/17 21:31 Dose: 650 mg Budesonide (Pulmicort Respules) 0.5 mg IH RQ12 [facility] Last Admin: 10/18/17 19:31 Dose: 0.5 mg Enoxaparin Sodium (Lovenox) 60 mg SC Q12 [facility] Last Admin: 10/18/17 21:36 Dose: 60 mg Folic Acid (Folic Acid) 1 mg PO DAILY [facility] Last Admin: 10/19/17 09:38 Dose: 1 mg Furosemide (Lasix) 20 mg IVP DAILY [facility] Last Admin: 10/19/17 09:38 Dose: 20 mg Meropenem 500 mg/ Sodium (Chloride) 100 mls @ 100 mls/hr IVPB Q8 [facility] PRN Reason: Protocol Last Admin: 10/19/17 05:45 Dose: 100 mls/hr Clindamycin Phosphate 300 mg/ (Sodium Chloride) 52 mls @ 100 mls/hr IVPB Q8H [facility] PRN Reason: Protocol Last Admin: 10/19/17 07:00 Dose: 100 mls/hr Vancomycin/Sodium Chloride (Vancomycin 1 Gm/Ns 200 Ml) 1 gm in 200 mls @ 133.333 mls/hr IVPB Q12H [facility] PRN Reason: Protocol Stop: 10/24/17 11:01 Ipratropium [place] (Atrovent) 0.5 mg IH RQ6 [facility] Last Admin: 10/19/17 07:38 Dose: 0.5 mg Lactobacillus Acidophilus (Bacid Acidophilus) 1 cap PO BID [facility] Last Admin: 10/19/17 09:41 Dose: 1 cap Lorazepam (Ativan) 0.5 mg IVP Q8H PRN PRN Reason: Anxiety Last Admin: 10/18/17 02:07 Dose: 0.5 mg Losartan Potassium (Cozaar) 25 mg PO DAILY [facility] Last Admin: 10/19/17 09:38 Dose: 25 mg Montelukast Sodium (Singulair) 10 mg PO HS [facility] Last Admin: 10/18/17 21:33 Dose: 10 mg Multivitamins (Hexavitamin) 1 tab PO DAILY [facility] Last Admin: 10/19/17 09:37 Dose: 1 tab Pantoprazole Sodium (Protonix Ec Tab) 40 mg PO DAILY [facility] Last Admin: 10/19/17 09:37 Dose: 40 mg Rosuvastatin Calcium (Crestor) 10 mg PO HS [facility] Last Admin: 10/18/17 21:32 Dose: 10 mg Physical Exam - Constitutional Appears: Chronically Ill - ENT Exam ENT Exam: Mucous Membranes Dry - Respiratory Exam Respiratory Exam: Rhonchi, Respiratory Distress. absent: Accessory Muscle Use - Cardiovascular Exam Cardiovascular Exam: Tachycardia (150s). absent: REGULAR RHYTHM - GI/Abdominal Exam GI & Abdominal Exam: Soft. absent: Tenderness - Extremities Exam Extremities exam: Negative for: pedal edema Additional comments: mottled below the knee no palpable pulses from DP, Pop, Femoral cold to touch movement and sensation intact - Neurological Exam Neurological exam: Alert - Psychiatric Exam Psychiatric exam: Anxious - Skin Skin Exam: Mottled (LE), Normal Color Results - Vital Signs Recent Vital Signs: Last Vital Signs Temp 97.7 F 10/19/17 08:00 Pulse 152 H 10/19/17 11:41 Resp 41 H 10/19/17 11:00 BP 130/73 10/19/17 10:16 Pulse Ox 100 10/19/17 10:16 - Labs Result Diagrams: 10/19/17 06:49 10/19/17 06:49 Labs: Laboratory Results - last 24 hr 10/18/17 10/19/17 10/19/17 15:43 06:49 06:49 WBC 31.1 H RBC 3.17 L Hgb 7.9 L Hct 25.1 L MCV 79.2 L MCH 25.0 L MCHC 31.5 L RDW 22.8 H Plt Count 634 H MPV 7.7 Neut % (Auto) 91.8 H Lymph % (Auto) 3.3 L [place] % (Auto) 4.9 Eos % (Auto) 0.0 Baso % (Auto) 0.0 Neut # (Auto) 28.5 H Lymph # (Auto) 1.0 [place] # (Auto) 1.5 H Eos # (Auto) 0.0 Baso # (Auto) 0.0 Neutrophils % (Manual) 92 H Lymphocytes % (Manual) 3 L Monocytes % (Manual) 4 Myelocytes % 1 H Platelet Estimate Increased H Large Platelets Present Hypochromasia (manual) Moderate Poikilocytosis (manual Slight Anisocytosis (manual) Slight Microcytosis (manual) Slight Macrocytosis (manual) Slight Target Cells Slight Ovalocytes Slight Roseanne Cells Slight PT INR APTT Puncture Site pCO2 pO2 HCO3 ABG pH ABG Total CO2 ABG O2 Saturation ABG Base Excess ABG Hemoglobin ABG Carboxyhemoglobin POC ABG HHb (Measured) ABG Methemoglobin Bill Test ABG Potassium A-a O2 Difference Respiratory Index Hgb O2 Saturation Glucose Lactate FiO2 Inspiratory BiPAP Expiratory BiPAP Crit Value Called To Crit Value Called By Crit Value Read Back Blood Gas Notified Time Sodium 143 Potassium 3.5 L Chloride 91 L Carbon Dioxide 43 H* Anion Gap 13 BUN 22 H Creatinine 0.5 L Est GFR ( Amer) > 60 Est GFR (Non-Af Amer) > 60 Random Glucose 119 H Calcium 8.5 L Phosphorus 4.8 H Magnesium 1.7 Total Bilirubin 0.5 AST 23 ALT 23 Alkaline Phosphatase 173 H Total Protein 6.3 Albumin 2.5 L Globulin 3.8 Albumin/Globulin Ratio 0.7 L Arterial Blood Potassium Stool Occult Blood Positive H Blood Type Antibody Screen 10/19/17 10/19/17 10/19/17 08:10 10:10 10:10 WBC RBC Hgb Hct MCV MCH MCHC RDW Plt Count MPV Neut % (Auto) Lymph % (Auto) [place] % (Auto) Eos % (Auto) Baso % (Auto) Neut # (Auto) Lymph # (Auto) [place] # (Auto) Eos # (Auto) Baso # (Auto) Neutrophils % (Manual) Lymphocytes % (Manual) Monocytes % (Manual) Myelocytes % Platelet Estimate Large Platelets Hypochromasia (manual) Poikilocytosis (manual Anisocytosis (manual) Microcytosis (manual) Macrocytosis (manual) Target Cells Ovalocytes [place] Cells PT 15.0 H INR 1.3 APTT 43 H Puncture Site Lb pCO2 78 H* pO2 379 H HCO3 39.4 H ABG pH 7.39 ABG Total CO2 49.6 H ABG O2 Saturation 99.9 H ABG Base Excess 18.6 H ABG Hemoglobin 11.6 L ABG Carboxyhemoglobin 1.6 H POC ABG HHb (Measured) 0.1 ABG Methemoglobin 1.2 Bill Test Na ABG Potassium A-a O2 Difference 237.0 Respiratory Index 0.6 Hgb O2 Saturation 97.1 Glucose Lactate FiO2 100.0 Inspiratory BiPAP 14 Expiratory BiPAP 6 Crit Value Called To Dr plasencia Crit Value Called By Shen marlow [facility] Crit Value Read Back Y Blood Gas Notified Time 815 Sodium Potassium Chloride Carbon Dioxide Anion Gap BUN Creatinine Est GFR ( Amer) Est GFR (Non-Af Amer) Random Glucose Calcium Phosphorus Magnesium Total Bilirubin AST ALT Alkaline Phosphatase Total Protein Albumin Globulin Albumin/Globulin Ratio Arterial Blood Potassium Stool Occult Blood Blood Type O POSITIVE Antibody Screen Negative 10/19/17 11:05 WBC RBC Hgb Hct MCV MCH MCHC RDW Plt Count MPV Neut % (Auto) Lymph % (Auto) [place] % (Auto) Eos % (Auto) Baso % (Auto) Neut # (Auto) Lymph # (Auto) [place] # (Auto) Eos # (Auto) Baso # (Auto) Neutrophils % (Manual) Lymphocytes % (Manual) Monocytes % (Manual) Myelocytes % Platelet Estimate Large Platelets Hypochromasia (manual) Poikilocytosis (manual Anisocytosis (manual) Microcytosis (manual) Macrocytosis (manual) Target Cells Ovalocytes [place] Cells PT INR APTT Puncture Site Lb pCO2 66 H pO2 61 L HCO3 39.0 H ABG pH 7.45 ABG Total CO2 47.9 H ABG O2 Saturation 93.1 L ABG Base Excess 18.2 H ABG Hemoglobin ABG Carboxyhemoglobin POC ABG HHb (Measured) ABG Methemoglobin Bill Test Na ABG Potassium 4.5 A-a O2 Difference 213.0 Respiratory Index 3.5 Hgb O2 Saturation Glucose 192 H Lactate 2.4 H FiO2 50.0 Inspiratory BiPAP 16 Expiratory BiPAP 8 Crit Value Called To Dr plasencia Crit Value Called By Shen marlow senior manufacturing supervisor Crit Value Read Back Y Blood Gas Notified Time 1110 Sodium 145.0 Potassium Chloride 104.0 Carbon Dioxide Anion Gap BUN Creatinine Est GFR ( Amer) Est GFR (Non-Af Amer) Random Glucose Calcium Phosphorus Magnesium Total Bilirubin AST ALT Alkaline Phosphatase Total Protein Albumin Globulin Albumin/Globulin Ratio Arterial Blood Potassium 4.5 Stool Occult Blood Blood Type Antibody Screen Assessment & Plan - Assessment and Plan (Free Text) Assessment: 72F admitted for PE, CHF; Sx consulted for limb ischemia which is chronic 2/2 diffuse arterial/iliac stenosis Plan: given pts condition and frailty, unlikely candidate for any vascular intervention arterial occlusion is chronic in nature, extending from aorta down would recommend full anti-coagulation - in light of recent anemia would transfuse pt and continue anti-coagulation regardless as benefit likely outweighs the risk case reviewed and pt evaluated with attending Dr Katelyn Corey, PGY3
--- NOTE | 2017-10-19 13:30 | CP.PCM.PN ---
Subjective - Date & Time of Evaluation Date of Evaluation: 10/19/17 Time of Evaluation: 13:28 - Subjective Subjective: pt still in icu on bipap has hypoxeamia hbg droped hep iv stopped will get transfusion today legs has poor circulation Objective - Vital Signs/Intake and Output Vital Signs (last 24 hours): Temp Pulse Resp BP Pulse Ox 97.7 F 152 H 41 H 130/73 100 10/19/17 08:04 10/19/17 11:41 10/19/17 11:00 10/19/17 10:16 10/19/17 10:16 Intake and Output: 10/19/17 10/19/17 06:59 18:59 Intake Total 350 370 Output Total 155 350 Balance 195 20 - Medications Medications: Current Medications Acetaminophen (Tylenol 325mg Tab) 650 mg PO Q6 PRN PRN Reason: PAIN + FEVER Last Admin: 10/18/17 21:31 Dose: 650 mg Budesonide (Pulmicort Respules) 0.5 mg IH RQ12 [facility] Last Admin: 10/18/17 19:31 Dose: 0.5 mg Enoxaparin Sodium (Lovenox) 60 mg SC Q12 [facility] Last Admin: 10/18/17 21:36 Dose: 60 mg Folic Acid (Folic Acid) 1 mg PO DAILY [facility] Last Admin: 10/19/17 09:38 Dose: 1 mg Furosemide (Lasix) 20 mg IVP DAILY [facility] Last Admin: 10/19/17 09:38 Dose: 20 mg Meropenem 500 mg/ Sodium (Chloride) 100 mls @ 100 mls/hr IVPB Q8 [facility] PRN Reason: Protocol Last Admin: 10/19/17 05:45 Dose: 100 mls/hr Clindamycin Phosphate 300 mg/ (Sodium Chloride) 52 mls @ 100 mls/hr IVPB Q8H [facility] PRN Reason: Protocol Last Admin: 10/19/17 07:00 Dose: 100 mls/hr Vancomycin/Sodium Chloride (Vancomycin 1 Gm/Ns 200 Ml) 1 gm in 200 mls @ 133.333 mls/hr IVPB Q12H [facility] PRN Reason: Protocol Stop: 10/24/17 11:01 Ipratropium [place] (Atrovent) 0.5 mg IH RQ6 [facility] Last Admin: 10/19/17 07:38 Dose: 0.5 mg Lactobacillus Acidophilus (Bacid Acidophilus) 1 cap PO BID [facility] Last Admin: 10/19/17 09:41 Dose: 1 cap Lorazepam (Ativan) 0.5 mg IVP Q8H PRN PRN Reason: Anxiety Last Admin: 10/18/17 02:07 Dose: 0.5 mg Losartan Potassium (Cozaar) 25 mg PO DAILY [facility] Last Admin: 10/19/17 09:38 Dose: 25 mg Montelukast Sodium (Singulair) 10 mg PO HS [facility] Last Admin: 10/18/17 21:33 Dose: 10 mg Multivitamins (Hexavitamin) 1 tab PO DAILY [facility] Last Admin: 10/19/17 09:37 Dose: 1 tab Pantoprazole Sodium (Protonix Ec Tab) 40 mg PO DAILY [facility] Last Admin: 10/19/17 09:37 Dose: 40 mg Rosuvastatin Calcium (Crestor) 10 mg PO [facility] Last Admin: 10/18/17 21:32 Dose: 10 mg - Labs Labs: 10/19/17 06:49 10/19/17 06:49 PT 15.0 SECONDS (9.7-12.2) H 10/19/17 10:10 INR 1.3 10/19/17 10:10 APTT 43 SECONDS (21-34) H 10/19/17 10:10 - Constitutional Appears: In Acute Distress - Head Exam Head Exam: ATRAUMATIC - Eye Exam Eye Exam: Normal appearance - ENT Exam ENT Exam: Mucous Membranes Moist - Respiratory Exam Respiratory Exam: Accessory Muscle Use - Cardiovascular Exam Cardiovascular Exam: REGULAR RHYTHM - GI/Abdominal Exam GI & Abdominal Exam: Normal Bowel Sounds - Psychiatric Exam Psychiatric exam: Normal Mood - Skin Skin Exam: Mottled Assessment and Plan - Assessment and Plan (Free Text) Assessment: bilateral PE HYPOXEADIA ANEAMIA POSSIBLE GI BLEEDING PVD Plan: CONT PER ORDERS
--- NOTE | 2017-10-19 13:57 | CP.PCM.PN ---
Subjective - Date & Time of Evaluation Date of Evaluation: 10/19/17 Time of Evaluation: 13:53 - Subjective Subjective: CHIEF COMPLAINTS TODAY : SOB MOTTLING LOWER EXT ROS. HEENT : N. Resp : No hemoptysis Cardio : No anginal CP, PND, orthopnea, palpitation GI : No abd.pain, n/v ,diarrhea or GI bleeding . [employer] NEWS : No headache, vertigo, focal deficit. Musculoskel : No joint swelling , Derm : No rash Psych : Normal affect. Ext : No swelling ,calf pain PE. Pt. is alert awake in no distress. V.S As noted in the chart Head ,ear nose,throat and eyes : Normal. Neck : Supple with normal carotids. Lungs: Clear air entry.RALES LESS Heart : S1 & S2 normal with S4. No murmur. Abd : Soft non tender with normal bowel sounds. Neuro : Moves all ext. with no localized deficit. Ext : No edema with intact pulses.Non tender calves ZOILA L EXT MOTTLING WITH POOR TISSUE PERFUSION Derm : No rashes or decubitus ulcer. LABS/RADIOLOGY: WBC IS UP , ZOILA EXTENSIVE DVT ASSESSMENT/PLAN : CURRENTLY PT IS NOT A CANDIDATE FOR LYSIS OF PULM CLOT POOR PERFUSION OF LOWER EXT SEC TO LOWER PERFUSION PRESSURE IN EXT IV LASIX DECREASED DUE TO HIGH BICARB Objective - Vital Signs/Intake and Output Vital Signs (last 24 hours): Temp Pulse Resp BP Pulse Ox 97.9 F 150 H 30 H 132/75 100 10/19/17 13:00 10/19/17 13:00 10/19/17 13:00 10/19/17 13:00 10/19/17 10:16 Intake and Output: 10/19/17 10/19/17 11:59 23:59 Intake Total 520 0 Output Total 275 180 Balance 245 -180 - Medications Medications: Current Medications Acetaminophen (Tylenol 325mg Tab) 650 mg PO Q6 PRN PRN Reason: PAIN + FEVER Last Admin: 10/18/17 21:31 Dose: 650 mg Budesonide (Pulmicort Respules) 0.5 mg IH RQ12 [facility] Last Admin: 10/18/17 19:31 Dose: 0.5 mg Enoxaparin Sodium (Lovenox) 60 mg SC Q12 [facility] Last Admin: 10/18/17 21:36 Dose: 60 mg Folic Acid (Folic Acid) 1 mg PO DAILY [facility] Last Admin: 10/19/17 09:38 Dose: 1 mg Furosemide (Lasix) 20 mg IVP DAILY [facility] Last Admin: 10/19/17 09:38 Dose: 20 mg Meropenem 500 mg/ Sodium (Chloride) 100 mls @ 100 mls/hr IVPB Q8 [facility] PRN Reason: Protocol Last Admin: 10/19/17 05:45 Dose: 100 mls/hr Clindamycin Phosphate 300 mg/ (Sodium Chloride) 52 mls @ 100 mls/hr IVPB Q8H [facility] PRN Reason: Protocol Last Admin: 10/19/17 07:00 Dose: 100 mls/hr Vancomycin/Sodium Chloride (Vancomycin 1 Gm/Ns 200 Ml) 1 gm in 200 mls @ 133.333 mls/hr IVPB Q12H [facility] PRN Reason: Protocol Stop: 10/24/17 11:01 Last Admin: 10/19/17 11:00 Dose: 133.333 mls/hr Ipratropium [place] (Atrovent) 0.5 mg IH RQ6 [facility] Last Admin: 10/19/17 07:38 Dose: 0.5 mg Lactobacillus Acidophilus (Bacid Acidophilus) 1 cap PO BID [facility] Last Admin: 10/19/17 09:41 Dose: 1 cap Lorazepam (Ativan) 0.5 mg IVP Q8H PRN PRN Reason: Anxiety Last Admin: 10/18/17 02:07 Dose: 0.5 mg Losartan Potassium (Cozaar) 25 mg PO DAILY [facility] Last Admin: 10/19/17 09:38 Dose: 25 mg Montelukast Sodium (Singulair) 10 mg PO HS [facility] Last Admin: 10/18/17 21:33 Dose: 10 mg Multivitamins (Hexavitamin) 1 tab PO DAILY [facility] Last Admin: 10/19/17 09:37 Dose: 1 tab Pantoprazole Sodium (Protonix Ec Tab) 40 mg PO DAILY [facility] Last Admin: 10/19/17 09:37 Dose: 40 mg Rosuvastatin Calcium (Crestor) 10 mg PO HS [facility] Last Admin: 10/18/17 21:32 Dose: 10 mg - Labs Labs: 10/19/17 06:49 10/19/17 06:49 PT 15.0 SECONDS (9.7-12.2) H 10/19/17 10:10 INR 1.3 10/19/17 10:10 APTT 43 SECONDS (21-34) H 10/19/17 10:10
[2017-10-19] MEDS ORDERED: Etomidate 20 mg/10ml Inj IV ONE (15:38)
--- NOTE | 2017-10-19 16:01 | RAD ---
HISTORY: s/p intubation COMPARISON: Chest radiograph performed approximately 8 prior FINDINGS: LUNGS: Patchy bilateral opacities. PLEURA: No significant pleural effusion identified, no pneumothorax apparent. CARDIOVASCULAR: Prior sternotomy with sternal wires and surgical clips redemonstrated. Atherosclerotic aortic calcifications. Cardiomediastinal silhouette stably enlarged. OSSEOUS STRUCTURES: Right humeral head enchondroma. Unchanged. VISUALIZED UPPER ABDOMEN: Normal. OTHER FINDINGS: New endotracheal tube with tip at the level of the clavicles. New right subclavian access central venous catheter with catheter tip in the SVC. Bilateral axillary surgical clips redemonstrated. IMPRESSION: New endotracheal tube and right subclavian access central venous catheter in satisfactory position.
[2017-10-19 16:11] LABS: VENOUS BLOOD GAS PCO2 > 150 mmHg (40-60); VENOUS BLOOD GAS PO2 24 mm/Hg (30-55); VENOUS BLOOD PH 7.38 (7.32-7.43)
[2017-10-19] MEDS ORDERED: Sodium Bicarbonate (8.4%) 50 mEq Vial ONE (16:15)
[2017-10-19 16:23] LABS: BASO # 0.1 K/uL (0.0-0.2); BASO % 0.4 % (0.0-2.0); EOS % 0.1 % (0.0-4.0); LYMPH % 10.3 % (20.0-40.0); MEAN CORPUSCULAR HEMOGLOBIN 26.2 pg (27.0-31.0); MEAN CORPUSCULAR HGB CONC 31.9 g/dL (33.0-37.0); MEAN PLATELET VOLUME 7.6 fL (7.2-11.7); MONO # 0.7 K/uL (0.0-0.8); MONO % 3.7 % (0.0-10.0); NEUT % 85.5 % (50.0-75.0); NRBC % 0.5 % (0.0-2.0); RBC 2.26 Mil/uL (3.80-5.20); RED CELL DISTRIBUTION WIDTH 20.9 % (11.5-14.5); WHITE BLOOD COUNT 19.8 K/uL (4.8-10.8)
[2017-10-19 16:32] LABS: INR 2.3; PROTHROMBIN TIME 27.1 SECONDS (9.7-12.2)
[2017-10-19 16:37] LABS: HEMOGLOBIN 5.9 g/dL (11.0-16.0)
--- NOTE | 2017-10-19 16:48 | CP.PCM.PCO ---
Physician Communication Note - Physician Communication Note Physician Communication Note: Patient before pall care had chance to talk to family.
--- NOTE | 2017-10-19 16:50 | PCM.PROC ---
Procedures Attestation:: I certify that I have explained the specified Operation(s) or Procedure(s), risks, benefits and reasonable alternatives to the Patient and/or other person responsible. The opportunity was given to ask questions and all questions answered - Central Line Placement Right Subclavian Aseptic technique was employed throughout the procedure: Hand Hygiene done prior to procedure, Full sterile barriers (mask, hair cover, sterile gown, sterile gloves), Full body sterile drape, Chloraprep Antiseptic: 30 second prep for IJ or SC sites CVP Time Out Performed: Yes Pt. Placed on Pulse Ox Monitor: Yes Central Line Prep: Chlorhexidine-Alcohol Combination Local Anesthesia Used: Lidocaine 1% Amount of Anesthesia Used (mls): 10 Ultrasound Used for Placement: No Central Line Lumen Inserted: triple Central Line Length: 16 cm Post Procedure: Sutured in Place, Good Blood Return, All Ports Aspirated, Flushed, Capped, Sterile Dressing Applied Secured by: Suture Post procedure dressing: Clear vapor permeable, Chlorhexidine disc (Biopatch) Post Procedure X-Ray: Yes Patient Tolerated Procedure: Well Immediate Complications: None
--- NOTE | 2017-10-19 16:52 | CP.PCM.PRO ---
Pronouncement of Note - Clinical Findings Physical Exam: No Response Verbal/Painful Stimuli, Absent Peripheral Pulses{ Carotid & Femoral}, Absent Heart & Breath Sounds, No Pupillary Light Reflex, No Corneal Reflex, Pupils Fixed & Dilated, Absence of Vital Signs - Pronouncement Time Time of Pronouncement of : 16:26 - Notifications Pronouncement Notifications: Family Notified, Atending Notified Roll Cutter Notified: No - Autopsy Autopsy Requested: No [place] [id number]
[2017-10-20 11:05] VITALS: BP 60/35; PULSE 46; RESP 20; O2SAT 79
[2017-10-20 11:09] VITALS: TEMP 97.6
== END 2017-10-19 16:26 | DRG 166 ==
LOC: C.ER 21:24 → C.9E 22:50 → C.6T 23:16 → C.9I 10-16 00:49
PROVIDERS: ADMIT Internal Medicine; ATTEND Internal Medicine
PROC: 06H03DZ Insertion of Intraluminal Device into Inferior Vena Cava, Percutaneous Approach (ICD-10-PCS; principal; 2017-10-17)
PROC: 02HV33Z Insertion of Infusion Device into Superior Vena Cava, Percutaneous Approach (ICD-10-PCS; 2017-10-19)
PROC: 0BH17EZ Insertion of Endotracheal Airway into Trachea, Via Natural or Artificial Opening (ICD-10-PCS; 2017-10-19)
PROC: 5A1935Z Respiratory Ventilation, Less than 24 Consecutive Hours (ICD-10-PCS; 2017-10-19)
DX: I26.99 Other pulmonary embolism without acute cor pulmonale (principal); I50.33 Acute on chronic diastolic (congestive) heart failure; J18.9 Pneumonia, unspecified organism; J44.0 Chronic obstructive pulmonary disease with (acute) lower respiratory infection; J44.1 Chronic obstructive pulmonary disease with (acute) exacerbation; I82.411 Acute embolism and thrombosis of right femoral vein; I11.0 Hypertensive heart disease with heart failure; F03.90 Unspecified dementia, unspecified severity, without behavioral disturbance, psychotic disturbance, mood disturbance, and anxiety; I25.10 Atherosclerotic heart disease of native coronary artery without angina pectoris; I49.01 Ventricular fibrillation; E11.51 Type 2 diabetes mellitus with diabetic peripheral angiopathy without gangrene; K59.00 Constipation, unspecified; R09.02 Hypoxemia; Z79.01 Long term (current) use of anticoagulants; Z85.3 Personal history of malignant neoplasm of breast; Z90.13 Acquired absence of bilateral breasts and nipples; Z95.5 Presence of coronary angioplasty implant and graft; Z99.81 Dependence on supplemental oxygen